=== PATIENT | male | born 1950 | race African-American/Black ===

== ENCOUNTER 2023-04-27 23:00 | Inpatient (IN) | payer MEDICARE, MEDICAID, SELFPAY ==
--- NOTE | ~2023-04-27 | US_ITS ---
EXAMINATION: US renal BI DATE: 04/29/2023 15:36 INDICATION: Acute kidney injury, acute renal failure TECHNIQUE: Limited grayscale and Doppler ultrasound images are obtained. Patient declined continuing the examination. COMPARISON: None. FINDINGS: The right kidney measures 9.9 x 5.1 x 4.9 cm. The left kidney measures 10.0 x 4.3 cm. The k idneys demonstrate increased parenchymal echogenicity. There is no hydronephrosis. The bladder is not imaged. IMPRESSION: 1. Medical renal disease. No hydronephrosis. Limited examination. Reviewed, dictated and finalized at location A.
--- NOTE | ~2023-04-27 | CT_ITS ---
EXAMINATION: CT brain wo con DATE: 04/28/2023 01:08 INDICATION: Altered mental status. TECHNIQUE: Computed tomography (CT) of the head was performed without intravenous contrast. The mA wa s adjusted according to patient size. Iterative reconstruction technique was employed. The dose-lengt h product was 681.00 mGy-cm. COMPARISON: None FINDINGS: There are old infarcts in the cerebellum bilaterally. There is an old infarct involving lef t frontotemporal parietal region, left insula, left basal ganglia, and left thalamus. There is an old infarct in the right basal ganglia. There are scattered areas of low attenuation in the cerebral whi te matter, likely chronic small vessel ischemic disease. There is near complete opacification of left maxillary sinus. There is mild mucosal thickening in the ethmoid sinuses. The mastoid air cells are normal. The orbits are normal. IMPRESSION: 1. Multiple old infarcts in the brain. Reviewed, dictated and finalized at location A.
--- NOTE | ~2023-04-27 | CT_ITS ---
EXAMINATION: CT chest abdomen pelvis wo con DATE: 04/28/2023 01:09 INDICATION: Altered mental status. TECHNIQUE: Computed tomography (CT) of the chest, abdomen, and pelvis was performed without intraveno us contrast. Automated exposure control and iterative reconstruction technique were employed. The dos e-length product was 1424.66 mGy-cm. COMPARISON: None FINDINGS: CHEST CT: There is mild emphysema. There is mild atelectasis bilaterally. No pleural effusion. Cardiomegaly is noted. There are coronary artery calcifications. There is a trace pericardial effusion. There is a le ft chest wall pacer with leads in the right atrium and right ventricle. There is a multinodular goite r with nodules measuring up to at least 2.1 cm. There is bilateral gynecomastia. There is mild thorac ic spondylosis. ABDOMEN/PELVIS CT: Calcifications in the liver consistent with old granulomatous disease. The gallbladder, spleen, pancr eas, adrenal glands, and right kidney are normal. There is a 2.2 cm cyst in left kidney. There is faina cified atherosclerosis of the aorta and many of the other arteries. There is diffuse bladder wall thi ckening, likely secondary to chronic outlet obstruction from the mildly enlarged prostate. Stool dist ends the rectum. There is a moderate volume of stool in the colon. The appendix is normal. There are no pathologically enlarged lymph nodes. There is no free intraperitoneal fluid. There is moderate lum bar spondylosis. IMPRESSION: 1. Mild emphysema. 2. Multinodular goiter. Consider thyroid ultrasound for risk stratification. 3. Stool distends the rectum. Reviewed, dictated and finalized at location A.
--- NOTE | ~2023-04-27 | XR_ITS ---
EXAMINATION: XR chest 1V portable DATE: 04/28/2023 23:38 INDICATION: Crackles on auscultation of the lungs. Aspiration. TECHNIQUE: A single frontal view of the chest was obtained. COMPARISON: CT 04/28/2023 FINDINGS: There is no pneumonia, pleural effusion, or pneumothorax. Cardiomegaly is noted. There is a left chest wall pacer with leads in the right atrium and right ventricle. IMPRESSION: 1. Cardiomegaly. Reviewed, dictated and finalized at location A. IMPRESSION: 1. Cardiomegaly.
[2023-04-27 23:01] VITALS: BP 159/89; PULSE 58; RESP 16; TEMP 36.5; O2SAT 100
--- NOTE | 2023-04-27 23:08 | ECG_ITS ---
Measurements Intervals [place] Rate: 64 P: [place]: 0 QRS: 243 QRSD: 137 T: 62 QT: 446 QTc: 462 Interpretive Statements ATRIAL FIBRILLATION RIGHT AXIS DEVIATION [QRS AXIS > 100] RIGHT BUNDLE BRANCH BLOCK [120+ ms QRS DURATION, UPRIGHT V1, 40+ ms S IN I/aVL/V4/V5/V6] NO PREVIOUS ECG AVAILABLE FOR COMPARISON Electronically Signed On 04-28-2023 11:48:16 CDT by Faye Wei M.D.
--- NOTE | 2023-04-27 23:16 | PC.NURSE ---
gave report and care to ROSARIO Mensah. all questions answered.
[2023-04-28] VITALS (10 sets, daily range): BP systolic 148–189; BP diastolic 69–84; PULSE 43–82; RESP 15–22; TEMP 36.3–37.7; O2SAT 97–100; BMI 24.7
--- NOTE | 2023-04-28 00:13 | ED.AMS ---
HPI - Altered Mental Status General Chief Complaint: Altered Mental Status Stated Complaint: decreased loc Time Seen by Provider: 04/27/23 23:33 History of Present Illness HPI narrative: HPI limited due to patient's altered mental status. This is a 72-year-old male, with past history of diabetes, A-fib on Xarelto, brought in by EMS from his [place] [facility] for altered mental status. EMS reports, they were called for patient's altered mental status and fall from bed with a reported blood pressure of 74/50 and a fingerstick glucose of 270. On arrival, they noted the patient was responsive to loud voice and sternal rub. Blood pressure however was in the 150s systolic. On my evaluation, the patient does not answer questions. I discussed the patient with ROSARIO Gonzalez at his [place] [facility], who notes the patient normally participates in his care with assistance. He follows commands and typically mumbles. At approximately 915 this evening, he received his medications and appeared to his normal self. At 1014 he had a witnessed fall from bed without obvious head injury and was minimally responsive at the time. Review of Systems Review of Systems: Unable to obtain review of systems due to altered mental status PMFSH Past Medical History Medical History (Updated 04/28/23 @ 03:46 by Juan Manuel Crane MD) A-fib Dementia Hypertension Insulin dependent diabetes mellitus Social History Social History Smoking status: Unknown if ever smoked Alcohol intake: unknown Substance use: unknown Exam Narrative: GENERAL: Well-developed, well-nourished, and in no acute distress. HEAD: Normocephalic, atraumatic. EYES: PERRLA and EOMI. ENT: Nares clear, no rhinorrhea or epistaxis. Mucous membranes dry. Oropharynx without tonsillar hypertrophy exudate or other lesions. CHEST: Clear to auscultation. No respiratory distress. No wheezes rales or rhonchi HEART: Regular rate and rhythm. No murmur heard. Normal peripheral pulses. ABDOMEN: Soft, nontender, nondistended, normal active bowel sounds. EXTREMITIES: Normal range of motion. No edema. SKIN: Warm, dry, no rash. NEURO: Follows commands unable to obtain orientation. Moving all 4 limbs purposefully. Course Course Emergency Course: 00:33 -creatinine elevated to 4.4. I discussed this with the [place] [facility] RN Lisa who notes his baseline creatine is 3 as of March 2022 and February 2022. 03:44 - UA appears consistent with UTI. Will treat with cefepime. CBC demonstrates mild anemia with hemoglobin of 9.6 (unknown baseline). STAT rad interpretation of CT chest abdomen pelvis demonstrates changes consistent with proctitis versus cystitis, but is not concerning for trauma or other obvious infectious process. CT head is limited by motion artifact but is not concerning for intracranial hemorrhage or mass. The patient with hospitalist, Dr. Jesus who accepts admission. Vital Signs Vital signs: Vital Signs Temperature 97.7 F 04/27/23 23:01 Pulse Rate 58 L 04/27/23 23:01 Respiratory Rate 16 04/27/23 23:01 Blood Pressure 159/89 H 04/27/23 23:01 Pulse Oximetry 100 04/27/23 23:01 Oxygen Delivery Room Air 04/27/23 23:01 Temperature 99.8 F H 04/28/23 02:24 Pulse Rate 82 04/28/23 02:22 Respiratory Rate 22 H 04/28/23 02:23 Blood Pressure 166/71 H 04/28/23 02:22 Pulse Oximetry 99 04/28/23 02:22 Oxygen Delivery Room Air 04/27/23 23:01 MDM - Altered Mental Status MDM Narrative Medical decision making narrative: Plan: Labs, imaging, EKG, reassess Differential Diagnosis Differential diagnosis: Likely alcoholic intoxication, altered mental status, delirium, hypoglycemia, hyponatremia and other (Intracranial hemorrhage, skull fracture, pneumonia, UTI, metabolic abnormality, other) Lab Data 04/28/23 00:09 04/28/23 00:09 Labs: Lab Results 04/28/23 04/28/23 Range/Units 00:0
[2023-04-28 00:20] LABS: Basophils Percent Auto 0.1 % (0.2-1.2); Eosinophils Percent Auto 0.4 % (0-4.4); Hematocrit 31.2 % (42.0-52.0); Hemoglobin 9.6 g/dL (14.0-18.0); Immature Granulocyte Absolute 0.02 K/mm3 (0.00-0.031); Immature Granulocyte Percent A 0.2 % (0-0.5); Lymphocytes Absolute Auto 1.04 K/mm3 (0.9-3.2); Lymphocytes Percent Auto 12.8 % (18.3-44.2); Mean Corpuscular HGB Conc 30.8 g/dl (32-36); Mean Corpuscular Hemoglobin 28.6 pg (26-34); Mean Corpuscular Volume 92.9 fl (80-100); Mean Platelet Volume 12.2 fl (7.4-10.4); Monocytes Absolute Auto 0.7 K/mm3 (0.1-0.6); Monocytes Percent Auto 8.2 % (2.6-8.5); Neutrophils Absolute Auto 6.4 K/mm3 (1.3-6.7); Neutrophils Percent Auto 78.3 % (45.5-73.1); Platelet Count Result 175 k/mm3 (150-375); Red Blood Count 3.36 M/mm3 (4.6-6.20); Red Cell Distribution Width 14.2 % (11.5-14.5); White Blood Count 8.1 K/mm3 (4.5-10.0)
[2023-04-28 00:24] LABS: Alanine Aminotransferase 21 U/L (6-50); Albumin Level 3.8 g/dL (3.5-5.1); Alkaline Phosphatase 63 U/L (38-126); Anion Gap 7 mmol/L (8-16); Aspartate Amino Transferase 22 U/L (17-59); Bilirubin,Total 0.4 mg/dL (0.2-1.3); Blood Urea Nitrogen 88 mg/dL (9-20); Calcium 8.9 mg/dL (8.4-10.2); Carbon Dioxide 24 mmol/L (22-30); Chloride 116 mmol/L (98-107); Estimated CRCL calculation 15 ml/min; Estimated Glomerular Filt Rate 16; Glucose 178 mg/dL (65-110); INR 1.2; Prothrombin Time 15.9 Seconds (11.1-14.7); Sodium 147 mmol/L (137-145)
[2023-04-28 00:25] LABS: Partial Thromboplastin Time 33.8 SECONDS (22.3-36.8)
[2023-04-28 00:53] LABS: Acetaminophen < 10 ug/mL (10-30); Ethanol < 10 mg/dL (<10); Salicylate < 1.0 mg/dL (2-20)
[2023-04-28 02:47] LABS: Appearance Urine Cloudy (Clear); Bacteria Urine 4+ /hpf; Bilirubin Urine Negative (Negative); Blood Urine Negative (Negative); Color Urine Yellow (Yellow); Glucose Urine UA Negative (Negative); Ketones Urine Negative (Negative); Leukocyte Esterase Ur 2+ LEU/UL (Negative); Nitrate Urine Negative (Negative); Non Pathogenic Casts 0-2; Protein Urine 3+ mg/dL (Negative); RBC Urine 0-2 /hpf (0-2); Specific Grav Ur 1.012 (1.001-1.035); Squamous Epithelial Cell Urine Occasional /hpf (Few); Urobilinogen Urine 0.2 mg/dL (<2.0); WBC Clumps Urine Present /HPF; WBC Urine 51-100 /hpf; pH Urine 5.5 (5.0-9.0)
[2023-04-28 02:49] LABS: Add Urine Microscopic? YES
[2023-04-28] MEDS: SODIUM CHLORIDE 0.9% IV 1,000 ML 999 ML IV CONT (03:18)
[2023-04-28] MEDS: CEFEPIME 1 GM/NS 50 ML 1 GM/50 ML BAG IVPB ×2 (03:18→17:33)
--- NOTE | 2023-04-28 04:30 | PC.NURSE ---
detention made aware of pt condition and plan of care at this time. This RN spoke with raymon PONCE
--- NOTE | 2023-04-28 04:59 | PC.NURSE ---
Normal saline still infusing at this time due to pt positioning. New IV placed in right hand and fluids now infusing through this IV due to 18G in L AC being positional.
--- NOTE | 2023-04-28 05:47 | ADMGEN ---
This patient, Cristofer Bryant, was admitted to [facility] Surg Room 331-01. Patient/family oriented to hospital policies and general routines including ID bracelet, bed and alarms, visiting hours, pain management, procedures, bathroom and other care routines, personal items, smoking policy, room service/diet, and visiting hours. Information on how to activate the Rapid Response Team has been discussed. Patient/Family are encouraged to report perceived risks to care and to ask questions if they do not understand what they are told or what they should do.
[2023-04-28 07:49] LABS: Glucose Point of Care 127 mg/dl (65-105)
[2023-04-28 11:23] LABS: Glucose Point of Care 95 mg/dl (65-105)
[2023-04-28 16:25] LABS: Glucose Point of Care 75 mg/dl (65-105)
[2023-04-28] MEDS: DEXTROSE 5%/0.45% SOD CHL 1,000 ML 75 ML IV CONT (16:47)
--- NOTE | 2023-04-28 16:57 | PM.IMHP ---
H&P: HPI History of Present Illness Date/Time: 04/28/23 16:57 Chief Complaint: AMS Narrative: Pt admitted with AMS, AF and DM and dementia poor historian possible stroke in the past difficulty swallowing looks cachexia and weak NH reported fall and unresponsiveness CT shows old infarcts in brain CT abdo pelvis shows full rectal with stools labs shows 147 sodium, creat is 4.4 possible uti Review of Systems Review of Systems: poor historian [facility] Past Medical History Medical History (Updated 04/28/23 @ 17:04 by Cinthya Mullins MD) A-fib Dementia Hypertension Insulin dependent diabetes mellitus Social History Social History Smoking status: Never smoker Second hand tobacco smoke exposure: No Alcohol intake: unknown Substance use: unknown Spiritual care concerns: No Meds Home Medications and Allergies Home Medications Medication Instructions Recorded Confirmed Type amlodipine 10 mg tablet 10 mg PO DAILY 04/28/23 04/28/23 History atorvastatin 20 mg tablet 20 mg PO DAILY 04/28/23 04/28/23 History clonidine 0.3 mg/24 hr weekly 0.3 mg transdermal DAILY 04/28/23 04/28/23 History transdermal patch glucagon 1 mg solution for 1 mg IM PRN PRN Hypoglycemia 04/28/23 04/28/23 History injection (Glucagon Emergency Kit) glucagon 1 mg/0.2 mL subcutaneous 1 mg subcut PRN PRN Hypoglycemia 04/28/23 04/28/23 History auto-injector (Gvoke HypoPen 1-Pack) hydralazine 25 mg tablet 25 mg PO TID 04/28/23 04/28/23 History hydralazine 50 mg tablet 50 mg PO TID 04/28/23 04/28/23 History hydrochlorothiazide 25 mg tablet 25 mg PO TID 04/28/23 04/28/23 History insulin detemir U-100 100 unit/mL 10 unit subcut HS 04/28/23 04/28/23 History subcutaneous solution (Levemir U-100 Insulin) insulin regular human 100 unit/mL 3 - 9 sliding scale dose subcut 04/28/23 04/28/23 History injection solution (Novolin R PRN PRN Hyperglycemia Regular U-100 Insulin) rivaroxaban 15 mg tablet (Xarelto) 15 mg PO DAILY 04/28/23 04/28/23 History Allergies Allergy/AdvReac Type Severity Reaction Status Date / Time No Known Allergies Allergy Verified 04/28/23 03:57 Vital Signs Vital Signs - 24 hr 04/27/23 23:01 04/28/23 02:22 04/28/23 02:23 Temperature 36.5 C Pulse Rate 58 L 82 Respiratory Rate 16 22 H 22 H Blood Pressure 159/89 H 166/71 H Pulse Oximetry 100 99 Oxygen Delivery Room Air 04/28/23 02:24 04/28/23 04:09 04/28/23 04:35 Temperature 37.7 C H Pulse Rate 66 75 Respiratory Rate 15 20 Blood Pressure 162/82 H 154/84 H Pulse Oximetry 97 100 Oxygen Delivery 04/28/23 05:30 04/28/23 09:42 04/28/23 14:00 Temperature 36.4 C 36.3 C L Pulse Rate 72 53 L Respiratory Rate 20 21 H Blood Pressure 173/69 H 189/70 H Pulse Oximetry 100 98 100 Oxygen Delivery Room Air Exam Const: General: thin and underweight (tired chronically ill dysphasic dysphagic ); No in distress Nutritional Appearance: overweight Orientation/consciousness: oriented to person HENMT: Head: normal to inspection Resp: Effort & Inspection: no respiratory distress Auscultation: no rhonchi and no wheezes Cardio: Rate: regular rate Rhythm: regular rhythm GI: Inspection: normal to inspection GI Palp: No abdominal tenderness, No Guarding due to palpation present (GI) and No Hepatomegaly present Auscultation: normal bowel sounds Neuro: General: oriented to person H&P: Results Labs Labs: Short CBC 04/28/23 Range/Units 00:09 WBC 8.1 (4.5-10.0) K/mm3 Hgb 9.6 L (14.0-18.0) g/dL Hct 31.2 L (42.0-52.0) % Plt Count 175 (150-375) k/mm3 BMP 04/28/23 00:09 Sodium 147 H Potassium 4.0 Chloride 116 H Carbon Dioxide 24 BUN 88 H Creatinine 4.40 H Glucose 178 H Calcium 8.9 Liver Function 04/28/23 Range/Units 00:09 Total Bilirubin 0.4 (0.2-1.3) mg/dL AST 22 (17-59) U/L
[2023-04-28] MEDS: DEXTROSE 5%/0.45% SOD CHL 1,000 ML 100 ML IV CONT (17:33)
[2023-04-28 17:38] LABS: Hemoglobin A1C 5.6 % (<5.7)
--- NOTE | 2023-04-28 20:24 | PC.NURSE ---
Spoke with Minnie Roy at this time r/t reports of patient choking on food at supper. New order received for NPO and speech eval. Elevated BPs noted since admission. New orders received for hydralazine 10mg IVP Q4H PRN for systolic >160 and diastolic >90.
[2023-04-28 22:55] LABS: Glucose Point of Care 104 mg/dl (65-105)
--- NOTE | 2023-04-28 23:16 | PC.NURSE ---
Spoke with Minnie Roy r/t patient having coarse and crackle lung sounds throughout and being lethargic with low grade temp of 99.3. New orders received for a chest x-ray, ABG's, and Flagyl 500 mg IVPB Q8HR.
[2023-04-28] MEDS: metroNIDAZOLE 500 MG/ISO 100ML 500 MG/100 ML BAG 100 MG IVPB (23:27)
[2023-04-28 23:42] LABS: Alveolar/Arterial O2 Gradient 23.7 mmHg; Base Excess ABG -1.5 mEq/l (+/-2.0); Fractional Inspired Oxygen 21 %; HCO3 ABG 22.3 mEq/l (22.0-26.0); Oxygen Content ABG 13.5 %vol (16.0-22.0); Oxygen Saturation ABG 96.9 % (95.0-100.0); PCO2 ABG 33.7 mmHg (35.0-45.0); PO2 ABG 85.7 mmHg (80.0-100.0); PO2 FiO2 Ratio Arterial Blood 4.08 %; Site Drawn RIGHT BRACHIAL; pH ABG 7.438 (7.350-7.450)
[2023-04-28 23:43] LABS: Device ROOM AIR
[2023-04-29] MEDS: DEXTROSE 5%/0.45% SOD CHL 1,000 ML 100 ML IV CONT ×2 (04:11→15:40)
[2023-04-29] MEDS: CEFEPIME 1 GM/NS 50 ML 1 GM/50 ML BAG IVPB (05:20)
[2023-04-29] MEDS: metroNIDAZOLE 500 MG/ISO 100ML 500 MG/100 ML BAG 100 MG IVPB (05:24)
[2023-04-29 06:00] VITALS: BP 139/75; PULSE 43; RESP 20; TEMP 37.2; O2SAT 100
[2023-04-29 06:08] LABS: Basophils Percent Auto 0.1 % (0.2-1.2); Eosinophils Absolute Auto 0.2 K/mm3 (0-0.3); Hemoglobin 9.5 g/dL (14.0-18.0); Immature Granulocyte Absolute 0.02 K/mm3 (0.00-0.031); Immature Granulocyte Percent A 0.3 % (0-0.5); Lymphocytes Absolute Auto 1.52 K/mm3 (0.9-3.2); Lymphocytes Percent Auto 22.6 % (18.3-44.2); Mean Corpuscular HGB Conc 28.8 g/dl (32-36); Mean Corpuscular Hemoglobin 28.6 pg (26-34); Mean Corpuscular Volume 99.4 fl (80-100); Mean Platelet Volume 12.3 fl (7.4-10.4); Monocytes Absolute Auto 0.8 K/mm3 (0.1-0.6); Monocytes Percent Auto 12.5 % (2.6-8.5); Neutrophils Absolute Auto 4.2 K/mm3 (1.3-6.7); Neutrophils Percent Auto 61.5 % (45.5-73.1); Platelet Count Result 160 k/mm3 (150-375); Red Blood Count 3.32 M/mm3 (4.6-6.20); Red Cell Distribution Width 13.7 % (11.5-14.5); White Blood Count 6.7 K/mm3 (4.5-10.0)
[2023-04-29 06:17] LABS: Anion Gap 9 mmol/L (8-16); Blood Urea Nitrogen 81 mg/dL (9-20); Calcium 8.8 mg/dL (8.4-10.2); Carbon Dioxide 21 mmol/L (22-30); Chloride 120 mmol/L (98-107); Estimated CRCL calculation 16 ml/min; Estimated Glomerular Filt Rate 18; Glucose 133 mg/dL (65-110); Potassium 4.2 mmol/L (3.4-5.0); Sodium 150 mmol/L (137-145)
[2023-04-29 06:40] LABS: Anisocytosis 2+ (NORMAL); Crenated RBC 1+ (NORMAL); Hypochromasia 2+ (NORMAL); Platelet Estimate Adequate (Adequate); Schistocytes Rare (NORMAL)
[2023-04-29 06:41] LABS: Poikilocytosis 1+ (NORMAL)
[2023-04-29 07:41] LABS: Glucose Point of Care 131 mg/dl (65-105)
[2023-04-29] MEDS: ATORVASTATIN 20 MG TABLET PO (09:41)
[2023-04-29] MEDS: RIVAROXABAN 15 MG TABLET PO (09:42)
[2023-04-29] MEDS: amLODIPine BESYLATE 5 MG TABLET 10 MG PO (09:42)
[2023-04-29] MEDS: hydrALAZINE HCL 50 MG TABLET PO ×2 (09:42→12:30)
[2023-04-29] MEDS: hydrALAZINE HCL 25 MG TABLET PO ×2 (09:42→12:30)
[2023-04-29] MEDS: hydroCHLOROthiazide 25 MG TABLET PO ×2 (09:46→12:30)
[2023-04-29 11:28] LABS: Glucose Point of Care 185 mg/dl (65-105)
[2023-04-29 13:44] VITALS: BMI 24.7
[2023-04-29 13:48] VITALS: BP 162/100; PULSE 47; RESP 20; TEMP 36.1; O2SAT 100
--- NOTE | 2023-04-29 14:32 | PM.IMPN ---
Progress Note: A&P Assessment and Plan (1) Acute UTI: Code(s): N39.0 - Urinary tract infection, site not specified Status: Acute Assessment and Plan: continue iv fluids and iv rocephin (2) Acute kidney injury superimposed on CKD: Code(s): N17.9 - Acute kidney failure, unspecified; N18.9 - Chronic kidney disease, unspecified Status: Acute Assessment and Plan: watch BMP watch UO consult nephrology (3) Altered mental status: Qualifiers: Altered mental status type: unspecified Qualified Code(s): R41.82 - Altered mental status, unspecified Code(s): R41.82 - Altered mental status, unspecified Status: Acute Assessment and Plan: likely secondary to UTI pt has history of dementia and stroke (4) Insulin dependent diabetes mellitus: Status: Acute Assessment and Plan: accuchecks, SSI (5) Hypertension: Code(s): I10 - Essential (primary) hypertension Status: Acute Assessment and Plan: watch bp in hospital reduce fluids watch blood pressure remain high in hospital (6) Dementia: Code(s): F03.90 - Unspecified dementia, unspecified severity, without behavioral disturbance, psychotic disturbance, mood disturbance, and anxiety Status: Acute Assessment and Plan: baseline dementia (7) A-fib: Code(s): I48.91 - Unspecified atrial fibrillation Status: Acute Assessment and Plan: chronic and stable watch on telemetry Plan xarelto for DVT prop Dc once pt back to his baseline Subjective Date/time seen: 04/29/23 14:32 Interval history: Pt admitted with AMS, AF and DM and dementia poor historian possible stroke in the past difficulty swallowing looks cachexia and weak NH reported fall and unresponsiveness Pt seen by speech and swallow see recommendation Pt seen by nephrology see recommendations continue iv fluids and iv ABX change to IV rocephin Review of Systems Review of Systems: poor historian Exam Const: General: overweight, thin and underweight (tired chronically ill dysphasic dysphagic ); No in distress Nutritional Appearance: overweight, thin and underweight (tired chronically ill dysphasic dysphagic ) Orientation/consciousness: oriented to person HENMT: Head: normal to inspection Resp: Effort & Inspection: no respiratory distress Auscultation: no rhonchi and no wheezes Cardio: Rate: regular rate Rhythm: regular rhythm GI: Inspection: normal to inspection Auscultation: normal bowel sounds Neuro: General: oriented to person Objective Data Vital Signs Vital Signs: Vital Signs - 24 hr 04/28/23 20:00 04/28/23 22:00 04/29/23 06:00 Temperature 37.4 C 37.2 C Pulse Rate 53 L 43 L 43 L Respiratory Rate 21 H 20 20 Blood Pressure 148/70 H 139/75 Pulse Oximetry 100 100 100 Oxygen Delivery Room Air 04/29/23 13:48 Temperature 36.1 C L Pulse Rate 47 L Respiratory Rate 20 Blood Pressure 162/100 H Pulse Oximetry 100 Oxygen Delivery Intake/Output Intake/Output: Intake & Output 04/26/23 04/27/23 04/28/23 04/29/23 23:59 23:59 23:59 23:59 Intake Total 220 1150 Output Total 300 Balance -80 1150 Meds/Results Medications: Active Medications Generic Name Dose Route Start Last Admin Trade Name Freq PRN Reason Stop Dose Admin Acetaminophen 650 mg 04/28/23 03:41 Acetaminophen 325 Mg Tablet PO Q4H PRN Mild Pain (1-3) or Fever Amlodipine Besylate 10 mg 04/29/23 09:00 04/29/23 09:42 Amlodipine Besylate 5 Mg Tablet PO 10 mg DAILY URIAH Administration Atorvastatin Calcium 20 mg 04/29/23 09:00 04/29/23 09:41 Atorvastatin 20 Mg Tablet PO 20 mg DAILY URIAH Administration Clonidine HCl 1 patch 05/01/23 09:00 Clonidine 0.3 Mg/24 Hr Patch TRANSDERM Sa@0900 URIAH Dextrose 12.5 gm 04/28/23 17:08 Dextrose 50% 25 Gm/50 Ml Syringe IV PUSH PRN PRN Hypoglycemia Pro
--- NOTE | 2023-04-29 14:45 | PM.CNNEP ---
Assessment and Plan Assessment and plan (1) LINDSEY (acute kidney injury): Code(s): N17.9 - Acute kidney failure, unspecified Status: Acute Assessment and Plan: unclear what baseline creatinine normally runs attempting to get records from nursing faciltity suspect has an element of CKD given risk factors check urine studies and renal ultrasound follow trend of labs with and UOP (2) Acute UTI: Code(s): N39.0 - Urinary tract infection, site not specified Status: Acute Assessment and Plan: as noted by admission UA follow-up on culture results continue antibiotic therapy (3) Altered mental status: Qualifiers: Altered mental status type: unspecified Qualified Code(s): R41.82 - Altered mental status, unspecified Code(s): R41.82 - Altered mental status, unspecified Status: Acute Assessment and Plan: presumably secondary to UTI complicated by history of dementia and CVAs follow mentation (4) Hypertension: Code(s): I10 - Essential (primary) hypertension Status: Chronic Assessment and Plan: resume home medications follow trend of hemodynamics (5) A-fib: Code(s): I48.91 - Unspecified atrial fibrillation Status: Acute Assessment and Plan: chronic and stable watch on tele metry (6) Insulin dependent diabetes mellitus: Status: Chronic Assessment and Plan: follow accu-checks glycemic control per hospitalists I will continue follow the patient with you while he remains hospitalized and make further recommendations as deemed necessary. Thank you for allowing me to participate in care of this patient. History of Present Illness Reason for Consult Consult date: 04/29/23 Reason for consult: acute renal failure (on chronic kidney disease[?]) Chief Complaint Chief complaint: UTI,LINDSEY on CKD History of Present Illness Narrative: Almost all the information I have obtained is from review of the electronic medical records and discussion with the physician/nurses involved in the patient's care as the patient is a poor historian due to his underlying dementia and cannot provide any meaningful history as to the events that led to his presentation and subsequent admission to the hospital. The patient is a 72-year-old male with a past medical history as outlined below who was transferred to [facility] Emergency room via EMS from his nursing facility for apparent altered mental status. By EMS report, the patient apparently fell out of bed earlier today with a reported systolic blood pressure in the 70s. His nursing facility reports that early on the morning of admission when he received his medications, his mentation was at baseline but then following the witnessed fall from bed, he was not as responsive afterwards. There was no reported head injury following the fall. In any case, by EMS arrival, the patient was responsive to loud voice and a sternal rub and repeat blood pressure check was reportedly in the 150 systolic. He was subsequently transferred to [facility] Emergency room for further assessment. Workup and evaluation emergency room demonstrated the patient to be hemodynamically stable and in no apparent distress. By assisted report, the patient apparently normally is able to participate in his care with assistance not a tot he normally follows commands and typically mumbles his answers when questions are asked. By assessment in the ER, the patient was not able to answer any questions with any type of verbal response. Routine blood tests were significant for an elevated BUN and creatinine with no critical electrolyte abnormalities and a CBC that was unremarkable aside from mild anemia. Unfortunately, it is unclear what his baseline renal function is at this time his urinalysis was highly suggestive of a urinary tract infection as well. CT scan of the head chest abdome
[2023-04-29] MEDS: hydrALAZINE HCL 20 MG/ML VIAL 10 MG IV PUSH (15:40)
[2023-04-29 16:06] LABS: Creatinine Urine 38.7 mg/dL; Urea Random Urine 381 MG/DL
[2023-04-29 16:09] LABS: Sodium Urine Random 115 meq/L
[2023-04-29 16:12] LABS: Glucose Point of Care 195 mg/dl (65-105)
[2023-04-29 16:24] LABS: Eosinophil Urine None Seen % (None Seen); Urine Eos QC 2nd Tech Confirmed
[2023-04-29 16:53] LABS: Total Protein Urine Random 337 mg/dL; Ur Ttl Prot Creatinine Ratio 8.71 mg/mg (0-0.20)
[2023-04-29] MEDS: cefTRIAXone 2 GM/NS 100 ML 2 GM/100 ML BAG IVPB (19:02)
[2023-04-29 22:00] VITALS: BP 159/96; PULSE 43; RESP 20; TEMP 36.3; O2SAT 98
[2023-04-29 22:09] LABS: Glucose Point of Care 246 mg/dl (65-105)
[2023-04-29] MEDS: INSULIN GLARGINE (*BKC) 100 UNITS/ML 12 UNITS SUB-Q (22:09)
[2023-04-30 06:00] VITALS: BP 155/86; PULSE 45; RESP 20; TEMP 36.8; O2SAT 97
[2023-04-30 06:25] LABS: Alanine Aminotransferase 16 U/L (6-50); Albumin Level 3.2 g/dL (3.5-5.1); Alkaline Phosphatase 50 U/L (38-126); Anion Gap 5 mmol/L (8-16); Aspartate Amino Transferase 24 U/L (17-59); Bilirubin,Total 0.3 mg/dL (0.2-1.3); Blood Urea Nitrogen 71 mg/dL (9-20); Calcium 8.5 mg/dL (8.4-10.2); Carbon Dioxide 25 mmol/L (22-30); Chloride 117 mmol/L (98-107); Creatine Kinase 142 U/L (55-170); Estimated CRCL calculation 16 ml/min; Estimated Glomerular Filt Rate 18; Glucose 113 mg/dL (65-110); Potassium 3.9 mmol/L (3.4-5.0); Sodium 147 mmol/L (137-145)
[2023-04-30 08:27] LABS: Glucose Point of Care 103 mg/dl (65-105)
[2023-04-30] MEDS: ATORVASTATIN 20 MG TABLET PO (10:01)
[2023-04-30] MEDS: hydroCHLOROthiazide 25 MG TABLET PO ×3 (10:01→17:04)
[2023-04-30] MEDS: hydrALAZINE HCL 50 MG TABLET PO ×3 (10:01→17:03)
[2023-04-30] MEDS: amLODIPine BESYLATE 5 MG TABLET 10 MG PO (10:02)
[2023-04-30] MEDS: hydrALAZINE HCL 25 MG TABLET PO ×3 (10:02→17:04)
--- NOTE | 2023-04-30 10:04 | PM.IMPN ---
Progress Note: A&P Assessment and Plan (1) Acute UTI: Code(s): N39.0 - Urinary tract infection, site not specified Status: Acute Assessment and Plan: continue iv fluids changed IV antibiotics to Ertapenem for a 5 day course (2) Acute kidney injury superimposed on CKD: Code(s): N17.9 - Acute kidney failure, unspecified; N18.9 - Chronic kidney disease, unspecified Status: Acute Assessment and Plan: watch BMP watch UO consult nephrology (3) Altered mental status: Qualifiers: Altered mental status type: unspecified Qualified Code(s): R41.82 - Altered mental status, unspecified Code(s): R41.82 - Altered mental status, unspecified Status: Acute Assessment and Plan: likely secondary to UTI pt has history of dementia and stroke (4) Insulin dependent diabetes mellitus: Status: Acute Assessment and Plan: accuchecks, SSI (5) Hypertension: Code(s): I10 - Essential (primary) hypertension Status: Acute Assessment and Plan: watch bp in hospital reduce fluids watch blood pressure remain high in hospital (6) Dementia: Code(s): F03.90 - Unspecified dementia, unspecified severity, without behavioral disturbance, psychotic disturbance, mood disturbance, and anxiety Status: Acute Assessment and Plan: baseline dementia (7) A-fib: Code(s): I48.91 - Unspecified atrial fibrillation Status: Acute Assessment and Plan: chronic and stable watch on telemetry Plan xarelto for DVT prop Dc once pt back to his baseline Subjective Date/time seen: 04/30/23 10:04 Interval history: This is a 72-year-old gentleman with a past medical history of AFib, dementia, diabetes, and hypertension who presents to the ER after a fall at his assisted. Per the nurse at his assisted he normally participate in his care and is able to follow commands but mumbles. On exam today he is lying in bed with a blanket over his head. He is alert and oriented to person and he knows he is in the hospital. He is unable to carry on a conversation, he just keeps nodding his head no when asked if he is in pain. Urinalysis is concerning for UTI and urine culture is growing E coli ESBL. He will need 5 days of IV Ertapenem. Review of Systems Review of Systems: ROS unobtainable: Yes unobtainable due to mental status Exam Narrative: General: chronically ill, elderly appear 72-year-old male, laying in bed, comfortable, NARD Neuro: awake, alert and oriented x1-2, speech mumbled, no focal neuro deficits noted HEENMT: normocephalic, atraumatic, EOMI, sclerae anicteric, moist oral mucosa Respiratory: Clear to auscultation bilaterally without crackles, rhonchi or wheezes, nonlabored breathing Cardio: regular rate, regular rhythm with S1-S2 Abdomen: nondistended, normoactive bowel sounds, soft, nontender to palpation Extremities: no edema, erythema, or tenderness to palpation, DP pulses 2+ bilaterally Skin: no rashes or lesions, warm and dry Psych: appropriate mood, judgment and insight poor Objective Data Vital Signs Vital Signs: Vital Signs - 24 hr 04/29/23 13:48 04/29/23 20:00 04/29/23 22:00 Temperature 97.0 F L 97.4 F L Pulse Rate 47 L 43 L Respiratory Rate 20 20 Blood Pressure 162/100 H 159/96 H Pulse Oximetry 100 98 Oxygen Delivery Room Air 04/30/23 06:00 Temperature 98.2 F Pulse Rate 45 L Respiratory Rate 20 Blood Pressure 155/86 H Pulse Oximetry 97 Oxygen Delivery Intake/Output Intake/Output: Intake & Output 04/27/23 04/28/23 04/29/23 04/30/23 23:59 23:59 23:59 23:59 Intake Total 220 2610 Output Total 300 1000 Balance -80 2610 -1000 Meds/Results Medications: Active Medications Generic Name Dose Route Start Last Admin Trade Name Yonisq PRN Reason Stop Dose Admin Acetaminophen 650 mg 04/28/23 03:41 Acetaminophen 325 Mg Tablet PO Q4H PRN
[2023-04-30 10:12] LABS: Basophils Percent Auto 0.3 % (0.2-1.2); Eosinophils Absolute Auto 0.4 K/mm3 (0-0.3); Eosinophils Percent Auto 5.5 % (0-4.4); Hematocrit 31.8 % (42.0-52.0); Hemoglobin 9.7 g/dL (14.0-18.0); Immature Granulocyte Absolute 0.01 K/mm3 (0.00-0.031); Immature Granulocyte Percent A 0.2 % (0-0.5); Lymphocytes Absolute Auto 1.44 K/mm3 (0.9-3.2); Lymphocytes Percent Auto 22.4 % (18.3-44.2); Mean Corpuscular HGB Conc 30.5 g/dl (32-36); Mean Corpuscular Hemoglobin 28.7 pg (26-34); Mean Corpuscular Volume 94.1 fl (80-100); Mean Platelet Volume 12.7 fl (7.4-10.4); Monocytes Absolute Auto 0.8 K/mm3 (0.1-0.6); Monocytes Percent Auto 11.7 % (2.6-8.5); Neutrophils Absolute Auto 3.9 K/mm3 (1.3-6.7); Neutrophils Percent Auto 59.9 % (45.5-73.1); Platelet Count Result 163 k/mm3 (150-375); Red Blood Count 3.38 M/mm3 (4.6-6.20); Red Cell Distribution Width 13.5 % (11.5-14.5); White Blood Count 6.4 K/mm3 (4.5-10.0)
[2023-04-30] MEDS: INSULIN ASPART (*BKC) 100 UNITS/ML SUB-Q ×3 (10:12→17:05)
[2023-04-30] MEDS: RIVAROXABAN 15 MG TABLET PO (10:12)
[2023-04-30] MEDS: DEXTROSE 5%/0.45% SOD CHL 1,000 ML 100 ML IV CONT (10:20)
[2023-04-30 12:19] LABS: Glucose Point of Care 151 mg/dl (65-105)
[2023-04-30 14:00] VITALS: BP 138/88; PULSE 51; RESP 16; TEMP 36.6; O2SAT 99
--- NOTE | 2023-04-30 14:43 | PM.PNNEP ---
Progress Note: A&P Assessment and Plan (1) LINDSEY (acute kidney injury): Code(s): N17.9 - Acute kidney failure, unspecified Status: Acute Assessment and Plan: unclear what baseline creatinine normally runs attempting to get records from nursing facility or another hospital suspect has an element of CKD given risk factors evaluation to date: renal ultrasound consistent with CKD urine electrolytes non-prerenal urine eosinophils negative CPK normal UA indicative of infection follow trend of labs with and UOP (2) Acute UTI: Code(s): N39.0 - Urinary tract infection, site not specified Status: Acute Assessment and Plan: as noted by admission UA urine culture resuls with ESBL E.coli on adjusted antibiotic therapy (3) Altered mental status: Qualifiers: Altered mental status type: unspecified Qualified Code(s): R41.82 - Altered mental status, unspecified Code(s): R41.82 - Altered mental status, unspecified Status: Acute Assessment and Plan: resolving presumably secondary to UTI complicated by history of dementia and CVAs follow mentation (4) Hypertension: Code(s): I10 - Essential (primary) hypertension Status: Chronic Assessment and Plan: resume home medications follow trend of hemodynamics (5) A-fib: Code(s): I48.91 - Unspecified atrial fibrillation Status: Acute Assessment and Plan: chronic issue rate control on anticoagulation (6) Insulin dependent diabetes mellitus: Status: Chronic Assessment and Plan: follow accu-checks glycemic control per hospitalists Will continue to follow. Subjective Date/time seen: 04/30/23 14:43 Interval history: Follow-up for acute kidney injury/acute renal failure on chronic kidney disease. Mentation seems better and closer to baseline per detention report -- more responsive to questions and mubbles answers although all of his answers to all questions is the same; no issues/events overnight or earlier this morning; renal function about the same (but no worse). Exam Narrative: General: elderly AA male who appears in NAD Heart: normal S1 and S2; no rub Lungs: clear to auscultation Abdomen: soft, nontender, nondistended, positive bowel sounds Extremities: no cyanosis or clubbing; no edema Skin: warm and dry Objective Data Vital Signs Vital Signs: Vital Signs Temp Pulse Resp BP Pulse Ox O2 Del Method 04/30/23 10:00 Room Air 04/30/23 06:00 98.2 F 45 L 20 155/86 H 97 04/29/23 22:00 97.4 F L 43 L 20 159/96 H 98 04/29/23 20:00 Room Air Intake/Output Intake/Output: Intake & Output 04/27/23 04/28/23 04/29/23 04/30/23 23:59 23:59 23:59 23:59 Intake Total 220 2610 1240 Output Total 300 1000 Balance -80 2610 240 Meds/Results Medications: Active Medications Generic Name Dose Route Start Last Admin Trade Name Freq PRN Reason Stop Dose Admin Acetaminophen 650 mg 04/28/23 03:41 Acetaminophen 325 Mg Tablet PO Q4H PRN Mild Pain (1-3) or Fever Amlodipine Besylate 10 mg 04/29/23 09:00 04/30/23 10:02 Amlodipine Besylate 5 Mg Tablet PO 10 mg DAILY URIAH Administration Atorvastatin Calcium 20 mg 04/29/23 09:00 04/30/23 10:01 Atorvastatin 20 Mg Tablet PO 20 mg DAILY URIAH Administration Clonidine HCl 1 patch 05/01/23 09:00 Clonidine 0.3 Mg/24 Hr Patch TRANSDERM Sa@0900 URIAH Dextrose 12.5 gm 04/28/23 17:08 Dextrose 50% 25 Gm/50 Ml Syringe IV PUSH PRN PRN Hypoglycemia Protocol Glucagon 1 mg 04/28/23 17:08 Glucagon For Inj 1 Mg Vial IM PRN PRN Hypoglycemia Protocol Glucose 15 gm 04/28/23 17:08 Glucose Oral Gel 15 Gm Of Glucse In 37.5 Gm Tube PO PRN PRN Hypoglycemia Protocol Hydralazine HCl 50 mg 04/29/23 09:00 04/30/23 17:03 Hydralazine Hcl 50 Mg Tabl
--- NOTE | 2023-04-30 14:43 | P.PNNP_ITS ---
Progress Note: A&P Assessment and Plan (1) LINDSEY (acute kidney injury): Code(s): N17.9 - Acute kidney failure, unspecified Status: Acute Assessment and Plan: * unclear what baseline creatinine normally runs * attempting to get records from nursing facility or another hospital * suspect has an element of CKD given risk factors * evaluation to date: * renal ultrasound consistent with CKD * urine electrolytes non-prerenal * urine eosinophils negative * CPK normal * UA indicative of infection * follow trend of labs with and UOP (2) Acute UTI: Code(s): N39.0 - Urinary tract infection, site not specified Status: Acute Assessment and Plan: * as noted by admission UA * urine culture resuls with ESBL E.coli * on adjusted antibiotic therapy (3) Altered mental status: Qualifiers: Altered mental status type: unspecified Qualified Code(s): R41.82 - Altered mental status, unspecified Code(s): R41.82 - Altered mental status, unspecified Status: Acute Assessment and Plan: * resolving * presumably secondary to UTI * complicated by history of dementia and CVAs * follow mentation (4) Hypertension: Code(s): I10 - Essential (primary) hypertension Status: Chronic Assessment and Plan: * resume home medications * follow trend of hemodynamics (5) A-fib: Code(s): I48.91 - Unspecified atrial fibrillation Status: Acute Assessment and Plan: * chronic issue * rate control * on anticoagulation (6) Insulin dependent diabetes mellitus: Status: Chronic Assessment and Plan: * follow accu-checks * glycemic control per hospitalists Will continue to follow. Subjective Date/time seen: 04/30/23 14:43 Interval history: Follow-up for acute kidney injury/acute renal failure on chronic kidney disease. Mentation seems better and closer to baseline per alf report -- more responsive to questions and mubbles answers although all of his answers to all questions is the same; no issues/events overnight or earlier this morning; renal function about the same (but no worse). Exam Narrative: General: elderly AA male who appears in NAD Heart: normal S1 and S2; no rub Lungs: clear to auscultation Abdomen: soft, nontender, nondistended, positive bowel sounds Extremities: no cyanosis or clubbing; no edema Skin: warm and dry Objective Data Vital Signs Vital Signs: Vital Signs Temp Pulse Resp BP Pulse Ox O2 Del Method 08/25/23 10:00 Room Air 04/30/23 06:00 98.2 F 45 L 20 155/86 H 97 04/29/23 22:00 97.4 F L 43 L 20 159/96 H 98 04/29/23 20:00 Room Air Intake/Output Intake/Output: Intake & Output 04/27/23 04/28/23 04/29/23 04/30/23 23:59 23:59 23:59 23:59 Intake Total 220 2610 1240 Output Total 300 1000 Balance -80 2610 240 Meds/Results Medications: Active Medications Generic Name Dose Route Start Last Admin Trade Name Freq PRN Reason Stop Dose Admin Acetaminophen 650 mg 04/28/23 03:41 Acetaminophen 325 Mg Tablet PO Q4H PRN Mild Pain (1-3) or Fever Amlodipine
[2023-04-30] MEDS: ERTAPENEM SODIUM 0.5 GM in SODIUM CHLORIDE 0.9% IV 50 ML IVPB (16:46)
[2023-04-30 17:02] LABS: Glucose Point of Care 91 mg/dl (65-105)
[2023-04-30 20:00] VITALS: PULSE 51; RESP 16; O2SAT 99
[2023-04-30 21:26] LABS: Glucose Point of Care 130 mg/dl (65-105)
[2023-04-30 22:00] VITALS: BP 200/62; PULSE 64; RESP 18; TEMP 37; O2SAT 99
[2023-04-30] MEDS: hydrALAZINE HCL 20 MG/ML VIAL 10 MG IV PUSH (22:55)
[2023-05-01 04:58] LABS: Glucose Point of Care 100 mg/dl (65-105)
[2023-05-01 05:58] LABS: Basophils Percent Auto 0.1 % (0.2-1.2); Eosinophils Absolute Auto 0.3 K/mm3 (0-0.3); Hemoglobin 9.7 g/dL (14.0-18.0); Immature Granulocyte Absolute 0.02 K/mm3 (0.00-0.031); Immature Granulocyte Percent A 0.3 % (0-0.5); Lymphocytes Absolute Auto 1.28 K/mm3 (0.9-3.2); Lymphocytes Percent Auto 18.2 % (18.3-44.2); Mean Corpuscular HGB Conc 31.3 g/dl (32-36); Mean Corpuscular Hemoglobin 28.9 pg (26-34); Mean Corpuscular Volume 92.3 fl (80-100); Mean Platelet Volume 12.3 fl (7.4-10.4); Monocytes Absolute Auto 0.7 K/mm3 (0.1-0.6); Monocytes Percent Auto 9.8 % (2.6-8.5); Neutrophils Absolute Auto 4.7 K/mm3 (1.3-6.7); Neutrophils Percent Auto 67.6 % (45.5-73.1); Platelet Count Result 154 k/mm3 (150-375); Red Blood Count 3.36 M/mm3 (4.6-6.20); Red Cell Distribution Width 13.3 % (11.5-14.5)
[2023-05-01 06:00] VITALS: BP 163/65; PULSE 53; RESP 16; TEMP 37.4; O2SAT 100
[2023-05-01 06:11] LABS: Alanine Aminotransferase 16 U/L (6-50); Albumin Level 3.2 g/dL (3.5-5.1); Alkaline Phosphatase 52 U/L (38-126); Anion Gap 3 mmol/L (8-16); Aspartate Amino Transferase 24 U/L (17-59); Bilirubin,Total 0.3 mg/dL (0.2-1.3); Blood Urea Nitrogen 70 mg/dL (9-20); Calcium 8.6 mg/dL (8.4-10.2); Carbon Dioxide 24 mmol/L (22-30); Chloride 117 mmol/L (98-107); Estimated CRCL calculation 16 ml/min; Estimated Glomerular Filt Rate 18; Glucose 98 mg/dL (65-110); Magnesium 1.4 mg/dL (1.6-2.3); Potassium 3.8 mmol/L (3.4-5.0); Sodium 144 mmol/L (137-145)
[2023-05-01 07:45] LABS: Glucose Point of Care 94 mg/dl (65-105)
[2023-05-01 08:47] LABS: Glucose Point of Care 96 mg/dl (65-105)
[2023-05-01 09:06] VITALS: O2SAT 100
--- NOTE | 2023-05-01 09:17 | PM.IMPN ---
Progress Note: A&P Assessment and Plan (1) Acute UTI: Code(s): N39.0 - Urinary tract infection, site not specified Status: Acute Assessment and Plan: continue iv fluids changed IV antibiotics to Ertapenem for a 5 day course (EOT 05/06) as urine culture is growing e-coli and only susceptible to IV agents (2) Acute kidney injury superimposed on CKD: Code(s): N17.9 - Acute kidney failure, unspecified; N18.9 - Chronic kidney disease, unspecified Status: Acute Assessment and Plan: watch BMP watch UO Cr is slowly downtrending. Cr 4.40-->4.0-->3.90. Medical records from Dr. Cooper's office were obtained however we were only able to get 1 BMP dated from . According to the office they recently updated their computer system and this is all they can acquire this time. At that point his creatinine was 3.06. Creatinine remains at 3.9 today however he did not get his IV fluids overnight due to loss of IV access. consult nephrology (3) Altered mental status: Qualifiers: Altered mental status type: unspecified Qualified Code(s): R41.82 - Altered mental status, unspecified Code(s): R41.82 - Altered mental status, unspecified Status: Acute Assessment and Plan: likely secondary to UTI pt has history of dementia and stroke Speech did see him this admission and recommended soft and bite-sized with mildly thick liquids due to inability to self-regulate. He needs to be upright and promted one sip at a time . NO STRAWS. (4) Insulin dependent diabetes mellitus: Status: Acute Assessment and Plan: accuchecks, SSI Lantus 12 units at HS (5) Hypertension: Code(s): I10 - Essential (primary) hypertension Status: Acute Assessment and Plan: watch bp in hospital reduce fluids watch blood pressure remain high in hospital (6) Dementia: Code(s): F03.90 - Unspecified dementia, unspecified severity, without behavioral disturbance, psychotic disturbance, mood disturbance, and anxiety Status: Acute Assessment and Plan: baseline dementia (7) A-fib: Code(s): I48.91 - Unspecified atrial fibrillation Status: Acute Assessment and Plan: chronic and stable watch on telemetry On Xarelto Plan IV antibiotics needed through 05/06 IV fluids until creatinine closer to 3.0 Subjective Date/time seen: 05/01/23 09:17 Interval history: This is a 72-year-old gentleman with a past medical history of AFib, dementia, diabetes, and hypertension who presents to the ER after a fall at his detention. Per the nurse at his detention he normally participate in his care and is able to follow commands but mumbles. On exam today he is lying in bed with a blanket over his head. He is alert and oriented to person and he knows he is in the hospital. He is unable to carry on a conversation, he just keeps nodding his head no when asked if he is in pain. Urinalysis is concerning for UTI and urine culture is growing E coli ESBL. He will need 5 days of IV Ertapenem. 05/01: Patient seen resting in bed. He is alert and oriented to person. He denies any complaints. Says he is eating and drinking without difficulty. I reviewed planning care with him and nods in agreement. Review of Systems Review of Systems: ROS unobtainable: Yes unobtainable due to mental status Exam Narrative: General: chronically ill, elderly appear 72-year-old male, laying in bed, comfortable, NARD Neuro: awake, alert and oriented x1-2, speech mumbled, no focal neuro deficits noted HEENMT: normocephalic, atraumatic, EOMI, sclerae anicteric, moist oral mucosa Respiratory: Clear to auscultation bilaterally without crackles, rhonchi or wheezes, nonlabored breathing Cardio: regular rate, regular rhythm with S1-S2 Abdomen: nondistended, normoactive bowel sounds, soft, nontender to palpation Extremities: no edema, erythema, or tenderness to pal
[2023-05-01] MEDS: hydroCHLOROthiazide 25 MG TABLET PO ×3 (09:48→16:21)
[2023-05-01] MEDS: hydrALAZINE HCL 50 MG TABLET PO ×3 (09:48→16:21)
[2023-05-01] MEDS: RIVAROXABAN 15 MG TABLET PO (09:48)
[2023-05-01] MEDS: ATORVASTATIN 20 MG TABLET PO (09:48)
[2023-05-01] MEDS: hydrALAZINE HCL 25 MG TABLET PO ×3 (09:48→16:21)
[2023-05-01] MEDS: amLODIPine BESYLATE 5 MG TABLET 10 MG PO (09:48)
[2023-05-01] MEDS: MAGNESIUM OXIDE 400 MG TABLET PO (09:52)
[2023-05-01] MEDS: cloNIDine 0.3 MG/24 HR PATCH 1 PATCH TRANSDERM (10:12)
--- NOTE | 2023-05-01 12:31 | P.PNNP_ITS ---
Progress Note: A&P Assessment and Plan (1) LINDSEY (acute kidney injury): Code(s): N17.9 - Acute kidney failure, unspecified Status: Acute Assessment and Plan: * unclear what baseline creatinine normally runs * only old records available are from March 2022 -- creatinine at that time was 3.06mg/dl * hence, he probably does have an element of CKD at baseline * evaluation to date: * renal ultrasound consistent with CKD * urine electrolytes non-prerenal * urine eosinophils negative * CPK normal * UA indicative of infection (see #2) * follow trend of labs with and UOP (2) Acute UTI: Code(s): N39.0 - Urinary tract infection, site not specified Status: Acute Assessment and Plan: * as noted by admission UA * urine culture resuls with ESBL E.coli * on adjusted antibiotic therapy (3) Altered mental status: Qualifiers: Altered mental status type: unspecified Qualified Code(s): R41.82 - Altered mental status, unspecified Code(s): R41.82 - Altered mental status, unspecified Status: Acute Assessment and Plan: * resolving if not resolved * presumably secondary to UTI * complicated by history of dementia and CVAs * follow mentation (4) Hypertension: Code(s): I10 - Essential (primary) hypertension Status: Chronic Assessment and Plan: * resume home medications * follow trend of hemodynamics (5) A-fib: Code(s): I48.91 - Unspecified atrial fibrillation Status: Acute Assessment and Plan: * chronic issue * rate control * on anticoagulation (6) Insulin dependent diabetes mellitus: Status: Chronic Assessment and Plan: * follow accu-checks * glycemic control per hospitalists Will continue to follow. Subjective Date/time seen: 05/01/23 12:31 Interval history: Follow-up for acute kidney injury/acute renal failure on chronic kidney disease. Mentation seems stable if not better at this time; renal function also appears stable if not a tad better; continues to make reasonable urine output; no apparent distress noted; no issues overnight or earlier this morning. Exam Narrative: General: elderly AA male who appears in NAD Heart: normal S1 and S2; no rub Lungs: clear to auscultation Abdomen: soft, nontender, nondistended, positive bowel sounds Extremities: no cyanosis or clubbing; no edema Skin: warm and intact Objective Data Vital Signs Vital Signs: Vital Signs Temp Pulse Resp BP Pulse Ox O2 Del Method 05/01/23 12:00 99 F 55 L 18 162/78 H 100 05/01/23 09:06 100 Room Air 05/01/23 06:00 99.3 F 53 L 16 163/65 H 100 04/30/23 22:00 98.6 F 64 18 200/62 H 99 04/30/23 20:00 51 L 16 99 Room Air Intake/Output Intake/Output: Intake & Output 04/28/23 04/29/23 04/30/23 05/01/23 23:59 23:59 23:59 23:59 Intake Total 220 2610 1630 240 Output Total 300 1900 1200 Balance -80 2610 270 960 Meds/Results Medications: Active Medications Generic Name Dose Route Start Last Admin Trade Name Freq PRN Reason Stop Dose Admin Acetaminophen 650 mg 04/28/23 03:41 Acetaminophen 325 Mg T
--- NOTE | 2023-05-01 12:31 | PM.PNNEP ---
Progress Note: A&P Assessment and Plan (1) LINDSEY (acute kidney injury): Code(s): N17.9 - Acute kidney failure, unspecified Status: Acute Assessment and Plan: unclear what baseline creatinine normally runs only old records available are from March 2022 -- creatinine at that time was 3.06mg/dl hence, he probably does have an element of CKD at baseline evaluation to date: renal ultrasound consistent with CKD urine electrolytes non-prerenal urine eosinophils negative CPK normal UA indicative of infection (see #2) follow trend of labs with and UOP (2) Acute UTI: Code(s): N39.0 - Urinary tract infection, site not specified Status: Acute Assessment and Plan: as noted by admission UA urine culture resuls with ESBL E.coli on adjusted antibiotic therapy (3) Altered mental status: Qualifiers: Altered mental status type: unspecified Qualified Code(s): R41.82 - Altered mental status, unspecified Code(s): R41.82 - Altered mental status, unspecified Status: Acute Assessment and Plan: resolving if not resolved presumably secondary to UTI complicated by history of dementia and CVAs follow mentation (4) Hypertension: Code(s): I10 - Essential (primary) hypertension Status: Chronic Assessment and Plan: resume home medications follow trend of hemodynamics (5) A-fib: Code(s): I48.91 - Unspecified atrial fibrillation Status: Acute Assessment and Plan: chronic issue rate control on anticoagulation (6) Insulin dependent diabetes mellitus: Status: Chronic Assessment and Plan: follow accu-checks glycemic control per hospitalists Will continue to follow. Subjective Date/time seen: 05/01/23 12:31 Interval history: Follow-up for acute kidney injury/acute renal failure on chronic kidney disease. Mentation seems stable if not better at this time; renal function also appears stable if not a tad better; continues to make reasonable urine output; no apparent distress noted; no issues overnight or earlier this morning. Exam Narrative: General: elderly AA male who appears in NAD Heart: normal S1 and S2; no rub Lungs: clear to auscultation Abdomen: soft, nontender, nondistended, positive bowel sounds Extremities: no cyanosis or clubbing; no edema Skin: warm and intact Objective Data Vital Signs Vital Signs: Vital Signs Temp Pulse Resp BP Pulse Ox O2 Del Method 05/01/23 12:00 99 F 55 L 18 162/78 H 100 05/01/23 09:06 100 Room Air 05/01/23 06:00 99.3 F 53 L 16 163/65 H 100 04/30/23 22:00 98.6 F 64 18 200/62 H 99 04/30/23 20:00 51 L 16 99 Room Air Intake/Output Intake/Output: Intake & Output 04/28/23 04/29/23 04/30/23 05/01/23 23:59 23:59 23:59 23:59 Intake Total 220 2610 1630 240 Output Total 300 1900 1200 Balance -80 5240 -270 -960 Meds/Results Medications: Active Medications Generic Name Dose Route Start Last Admin Trade Name Freq PRN Reason Stop Dose Admin Acetaminophen 650 mg 04/28/23 03:41 Acetaminophen 325 Mg Tablet PO Q4H PRN Mild Pain (1-3) or Fever Amlodipine Besylate 10 mg 04/29/23 09:00 05/01/23 09:48 Amlodipine Besylate 5 Mg Tablet PO 10 mg DAILY URIAH Administration Atorvastatin Calcium 20 mg 04/29/23 09:00 05/01/23 09:48 Atorvastatin 20 Mg Tablet PO 20 mg DAILY URIAH Administration Clonidine HCl 1 patch 05/01/23 09:00 05/01/23 10:12 Clonidine 0.3 Mg/24 Hr Patch TRANSDERM 1 patch Sa@0900 URIAH Administration Dextrose 12.5 gm 04/28/23 17:08 Dextrose 50% 25 Gm/50 Ml Syringe IV PUSH PRN PRN Hypoglycemia Protocol Glucagon 1 mg 04/28/23 17:08 Glucagon For Inj 1 Mg Vial IM PRN PRN Hypoglycemia Protocol Glucose 15 gm 04/28/23 17:08 Glucose Oral Gel 15 Gm Of Glucse In 37.5 Gm Tube PO PRN PRN H
[2023-05-01 12:40] LABS: Glucose Point of Care 175 mg/dl (65-105)
[2023-05-01 14:00] VITALS: BP 182/78; PULSE 55; RESP 18; TEMP 37.2; O2SAT 100
[2023-05-01] MEDS: hydrALAZINE HCL 20 MG/ML VIAL 10 MG IV PUSH ×2 (16:20→21:35)
[2023-05-01 16:48] LABS: Glucose Point of Care 131 mg/dl (65-105)
[2023-05-01] MEDS: ERTAPENEM SODIUM 0.5 GM in SODIUM CHLORIDE 0.9% IV 50 ML IVPB (17:13)
--- NOTE | 2023-05-01 19:00 | PC.NURSE ---
On 05/01/23, the [employer] TECHNICIAN, provided care and completed [employer] documentation on this patient. I have reviewed the LPNs documentation and agree with the findings.
[2023-05-01] MEDS: DEXTROSE 5%/0.45% SOD CHL 1,000 ML 50 ML IV CONT (19:38)
[2023-05-01] MEDS: INSULIN ASPART (*BKC) 100 UNITS/ML SUB-Q (21:23)
[2023-05-01] MEDS: INSULIN GLARGINE (*BKC) 100 UNITS/ML 12 UNITS SUB-Q (21:24)
[2023-05-01 21:44] LABS: Glucose Point of Care 259 mg/dl (65-105)
[2023-05-01 22:00] VITALS: BP 190/73; PULSE 56; RESP 18; TEMP 36.8; O2SAT 99
[2023-05-02 00:31] VITALS: BP 150/104
[2023-05-02 04:48] VITALS: BP 156/72; PULSE 51; RESP 16; TEMP 36.2; O2SAT 100
[2023-05-02 05:58] LABS: Basophils Percent Auto 0.2 % (0.2-1.2); Eosinophils Absolute Auto 0.3 K/mm3 (0-0.3); Eosinophils Percent Auto 4.6 % (0-4.4); Hematocrit 31.6 % (42.0-52.0); Hemoglobin 9.8 g/dL (14.0-18.0); Immature Granulocyte Absolute 0.02 K/mm3 (0.00-0.031); Immature Granulocyte Percent A 0.3 % (0-0.5); Lymphocytes Absolute Auto 1.49 K/mm3 (0.9-3.2); Lymphocytes Percent Auto 25.2 % (18.3-44.2); Mean Corpuscular Hemoglobin 28.7 pg (26-34); Mean Corpuscular Volume 92.4 fl (80-100); Mean Platelet Volume 12.3 fl (7.4-10.4); Monocytes Absolute Auto 0.7 K/mm3 (0.1-0.6); Neutrophils Absolute Auto 3.5 K/mm3 (1.3-6.7); Neutrophils Percent Auto 58.7 % (45.5-73.1); Platelet Count Result 166 k/mm3 (150-375); Red Blood Count 3.42 M/mm3 (4.6-6.20); Red Cell Distribution Width 13.2 % (11.5-14.5); White Blood Count 5.9 K/mm3 (4.5-10.0)
[2023-05-02 06:05] LABS: INR 1.2; Prothrombin Time 15.9 Seconds (11.1-14.7)
[2023-05-02 06:06] LABS: Partial Thromboplastin Time 36.6 SECONDS (22.3-36.8)
[2023-05-02 06:08] LABS: Alanine Aminotransferase 15 U/L (6-50); Albumin Level 3.2 g/dL (3.5-5.1); Alkaline Phosphatase 55 U/L (38-126); Anion Gap 1 mmol/L (8-16); Aspartate Amino Transferase 21 U/L (17-59); Bilirubin,Total 0.3 mg/dL (0.2-1.3); Blood Urea Nitrogen 67 mg/dL (9-20); Calcium 8.5 mg/dL (8.4-10.2); Carbon Dioxide 25 mmol/L (22-30); Chloride 117 mmol/L (98-107); Estimated CRCL calculation 16 ml/min; Estimated Glomerular Filt Rate 18; Glucose 104 mg/dL (65-110); Magnesium 1.6 mg/dL (1.6-2.3); Sodium 143 mmol/L (137-145)
--- NOTE | 2023-05-02 07:13 | PM.IMPN ---
Progress Note: A&P Assessment and Plan (1) Acute UTI: Code(s): N39.0 - Urinary tract infection, site not specified Status: Acute Assessment and Plan: continue iv fluids changed IV antibiotics to Ertapenem for a 5 day course (EOT 05/06) as urine culture is growing e-coli and only susceptible to IV agents (2) Acute kidney injury superimposed on CKD: Code(s): N17.9 - Acute kidney failure, unspecified; N18.9 - Chronic kidney disease, unspecified Status: Acute Assessment and Plan: watch BMP watch UO Cr is slowly downtrending. Cr 4.40-->4.0-->3.90. Medical records from Dr. Cooper's office were obtained however we were only able to get 1 BMP dated from . According to the office they recently updated their computer system and this is all they can acquire this time. At that point his creatinine was 3.06. Creatinine remains at 3.9 today however he did not get his IV fluids overnight due to loss of IV access. consult nephrology (3) Altered mental status: Qualifiers: Altered mental status type: unspecified Qualified Code(s): R41.82 - Altered mental status, unspecified Code(s): R41.82 - Altered mental status, unspecified Status: Acute Assessment and Plan: likely secondary to UTI pt has history of dementia and stroke Speech did see him this admission and recommended soft and bite-sized with mildly thick liquids due to inability to self-regulate. He needs to be upright and promted one sip at a time . NO STRAWS. (4) Insulin dependent diabetes mellitus: Status: Acute Assessment and Plan: accuchecks, SSI Lantus 12 units at HS (5) Hypertension: Code(s): I10 - Essential (primary) hypertension Status: Acute Assessment and Plan: Blood pressures reviewed and have continued to remain high with SBP in the 180's Will increased hydralazine dose from 75 mg TID to 100 mg TID (6) Dementia: Code(s): F03.90 - Unspecified dementia, unspecified severity, without behavioral disturbance, psychotic disturbance, mood disturbance, and anxiety Status: Acute Assessment and Plan: baseline dementia (7) A-fib: Code(s): I48.91 - Unspecified atrial fibrillation Status: Acute Assessment and Plan: chronic and stable watch on telemetry On Xarelto Plan IV antibiotics needed through 05/06 Subjective Date/time seen: 05/02/23 07:13 Interval history: This is a 72-year-old gentleman with a past medical history of AFib, dementia, diabetes, and hypertension who presents to the ER after a fall at his residential. Per the nurse at his residential he normally participate in his care and is able to follow commands but mumbles. On exam today he is lying in bed with a blanket over his head. He is alert and oriented to person and he knows he is in the hospital. He is unable to carry on a conversation, he just keeps nodding his head no when asked if he is in pain. Urinalysis is concerning for UTI and urine culture is growing E coli ESBL. He will need 5 days of IV Ertapenem. 05/01: Patient seen resting in bed. He is alert and oriented to person. He denies any complaints. Says he is eating and drinking without difficulty. I reviewed plan of care with him and nods in agreement. 05/02: NAEON. He is sleeping in bed with the covers over his head. He awakens when I speak to him and denies any complaints at this time. He appropriately interacts with me and follows my commands. He appears back to baseline as per reports from nursing at [facility]. He needs a midline placed and then he can d/c to his facility. Will speak with nephrology about permission to place midline. Continue with IV antibiotics. Review of Systems Review of Systems: ROS unobtainable: Yes unobtainable due to mental status Exam Narrative: General: chronically ill, elderly appear 72-year-old male, laying in bed, comfortable, NARD Neuro: a
[2023-05-02 08:27] LABS: Glucose Point of Care 116 mg/dl (65-105)
[2023-05-02] MEDS: hydrALAZINE HCL 50 MG TABLET 100 MG PO ×3 (10:18→17:01)
[2023-05-02] MEDS: ATORVASTATIN 20 MG TABLET PO (10:19)
[2023-05-02] MEDS: amLODIPine BESYLATE 5 MG TABLET 10 MG PO (10:19)
[2023-05-02] MEDS: hydroCHLOROthiazide 25 MG TABLET PO ×3 (10:19→17:01)
[2023-05-02] MEDS: RIVAROXABAN 15 MG TABLET PO (10:19)
--- NOTE | 2023-05-02 11:36 | PC.NURSE ---
On 05/02/23, the DREDGE PUMPER, provided care and completed [employer] documentation on this patient. I have reviewed the DREDGE PUMPER's documentation and agree with the findings.
[2023-05-02 11:41] LABS: Glucose Point of Care 259 mg/dl (65-105)
[2023-05-02] MEDS: INSULIN ASPART (*BKC) 100 UNITS/ML SUB-Q (11:58)
--- NOTE | 2023-05-02 13:16 | P.PNNP_ITS ---
Progress Note: A&P Assessment and Plan (1) LINDSEY (acute kidney injury): Code(s): N17.9 - Acute kidney failure, unspecified Status: Acute Assessment and Plan: * unclear what baseline creatinine normally runs * only old records available are from March 2022 -- creatinine at that time was 3.06mg/dl * hence, he probably does have an element of CKD at baseline * evaluation to date: * renal ultrasound consistent with CKD * urine electrolytes non-prerenal * urine eosinophils negative * CPK normal * UA indicative of infection (see #2) * follow trend of labs with and UOP (2) Acute UTI: Code(s): N39.0 - Urinary tract infection, site not specified Status: Acute Assessment and Plan: * as noted by admission UA * urine culture resuls with ESBL E.coli * on antibiotic therapy (3) Altered mental status: Qualifiers: Altered mental status type: unspecified Qualified Code(s): R41.82 - Altered mental status, unspecified Code(s): R41.82 - Altered mental status, unspecified Status: Acute Assessment and Plan: * resolving if not resolved * presumably secondary to UTI * complicated by history of dementia and CVAs * follow mentation (4) Hypertension: Code(s): I10 - Essential (primary) hypertension Status: Chronic Assessment and Plan: * resume home medications * follow trend of hemodynamics (5) A-fib: Code(s): I48.91 - Unspecified atrial fibrillation Status: Acute Assessment and Plan: * chronic issue * rate control * on anticoagulation (6) Insulin dependent diabetes mellitus: Status: Chronic Assessment and Plan: * follow accu-checks * glycemic control per hospitalists Will continue to follow. Subjective Date/time seen: 05/02/23 13:16 Interval history: Follow-up for acute kidney injury/acute renal failure on chronic kidney disease. Renal function relatively stable at this time as is mentation; no apparent distress noted; tolerating IV antibiotic therapy with tentative plan to complete course of IV antibiotics on discharge to his nursing facility; no issues/events overnight or earlier today. Exam Narrative: General: elderly AA male who appears in NAD Heart: normal S1 and S2; no rub Lungs: clear to auscultation Abdomen: soft, nontender, nondistended, positive bowel sounds Extremities: no cyanosis or clubbing; no edema Skin: no rash or nodules Objective Data Vital Signs Vital Signs: Vital Signs Temp Pulse Resp BP Pulse Ox O2 Del Method 05/02/23 13:00 97.5 F L 51 L 22 H 146/59 H 100 05/02/23 10:15 Room Air 05/02/23 08:35 Room Air 05/02/23 04:48 97.2 F L 51 L 16 156/72 H 100 05/01/23 20:00 Room Air 05/02/23 00:31 150/104 H 05/01/23 22:00 98.2 F 56 L 18 190/73 H 99 Intake/Output Intake/Output: Intake & Output 04/29/23 04/30/23 05/01/23 05/02/23 23:59 23:59 23:59 23:59 Intake Total 2610 2630 810 700 Output Total 1900 2550 650 Balance 2610 730 -1740 50 Meds/Results Medications: Active Medications Generic Name Dose Route Start Last Admin Trade Name
--- NOTE | 2023-05-02 13:16 | PM.PNNEP ---
Progress Note: A&P Assessment and Plan (1) LINDSEY (acute kidney injury): Code(s): N17.9 - Acute kidney failure, unspecified Status: Acute Assessment and Plan: unclear what baseline creatinine normally runs only old records available are from March 2022 -- creatinine at that time was 3.06mg/dl hence, he probably does have an element of CKD at baseline evaluation to date: renal ultrasound consistent with CKD urine electrolytes non-prerenal urine eosinophils negative CPK normal UA indicative of infection (see #2) follow trend of labs with and UOP (2) Acute UTI: Code(s): N39.0 - Urinary tract infection, site not specified Status: Acute Assessment and Plan: as noted by admission UA urine culture resuls with ESBL E.coli on antibiotic therapy (3) Altered mental status: Qualifiers: Altered mental status type: unspecified Qualified Code(s): R41.82 - Altered mental status, unspecified Code(s): R41.82 - Altered mental status, unspecified Status: Acute Assessment and Plan: resolving if not resolved presumably secondary to UTI complicated by history of dementia and CVAs follow mentation (4) Hypertension: Code(s): I10 - Essential (primary) hypertension Status: Chronic Assessment and Plan: resume home medications follow trend of hemodynamics (5) A-fib: Code(s): I48.91 - Unspecified atrial fibrillation Status: Acute Assessment and Plan: chronic issue rate control on anticoagulation (6) Insulin dependent diabetes mellitus: Status: Chronic Assessment and Plan: follow accu-checks glycemic control per hospitalists Will continue to follow. Subjective Date/time seen: 05/02/23 13:16 Interval history: Follow-up for acute kidney injury/acute renal failure on chronic kidney disease. Renal function relatively stable at this time as is mentation; no apparent distress noted; tolerating IV antibiotic therapy with tentative plan to complete course of IV antibiotics on discharge to his nursing facility; no issues/events overnight or earlier today. Exam Narrative: General: elderly AA male who appears in NAD Heart: normal S1 and S2; no rub Lungs: clear to auscultation Abdomen: soft, nontender, nondistended, positive bowel sounds Extremities: no cyanosis or clubbing; no edema Skin: no rash or nodules Objective Data Vital Signs Vital Signs: Vital Signs Temp Pulse Resp BP Pulse Ox O2 Del Method 05/02/23 13:00 97.5 F L 51 L 22 H 146/59 H 100 05/02/23 10:15 Room Air 05/02/23 08:35 Room Air 05/02/23 04:48 97.2 F L 51 L 16 156/72 H 100 05/01/23 20:00 Room Air 05/02/23 00:31 150/104 H 05/01/23 22:00 98.2 F 56 L 18 190/73 H 99 Intake/Output Intake/Output: Intake & Output 04/29/23 04/30/23 05/01/23 05/02/23 23:59 23:59 23:59 23:59 Intake Total 2610 2630 810 700 Output Total 1900 2550 650 Balance 2610 730 -1740 50 Meds/Results Medications: Active Medications Generic Name Dose Route Start Last Admin Trade Name Freq PRN Reason Stop Dose Admin Acetaminophen 650 mg 04/28/23 03:41 Acetaminophen 325 Mg Tablet PO Q4H PRN Mild Pain (1-3) or Fever Amlodipine Besylate 10 mg 04/29/23 09:00 05/02/23 10:19 Amlodipine Besylate 5 Mg Tablet PO 10 mg DAILY URIAH Administration Atorvastatin Calcium 20 mg 04/29/23 09:00 05/02/23 10:19 Atorvastatin 20 Mg Tablet PO 20 mg DAILY URIAH Administration Clonidine HCl 1 patch 05/01/23 09:00 05/01/23 10:12 Clonidine 0.3 Mg/24 Hr Patch TRANSDERM 1 patch Sa@0900 URIAH Administration Dextrose 12.5 gm 04/28/23 17:08 Dextrose 50% 25 Gm/50 Ml Syringe IV PUSH PRN PRN Hypoglycemia Protocol Glucagon 1 mg 04/28/23 17:08 Glucagon For Inj 1 Mg Vial IM PRN PRN Hypoglycemia Protocol Glucose 15
--- NOTE | 2023-05-02 13:27 | PM.DS ---
DS: Admitting Diagnosis Discharge Date May 03 Admitting Diagnosis AMS, UTI DS: Discharge Diagnosis Discharge Diagnosis (1) Acute UTI: Code(s): N39.0 - Urinary tract infection, site not specified Status: Acute Assessment and Plan: continue iv fluids changed IV antibiotics to Ertapenem for a 5 day course (EOT 05/06) as urine culture is growing e-coli and only susceptible to IV agents (2) Acute kidney injury superimposed on CKD: Code(s): N17.9 - Acute kidney failure, unspecified; N18.9 - Chronic kidney disease, unspecified Status: Acute Assessment and Plan: watch BMP watch UO Cr is slowly downtrending. Cr 4.40-->4.0-->3.90. Medical records from Dr. Cooper's office were obtained however we were only able to get 1 BMP dated from . According to the office they recently updated their computer system and this is all they can acquire this time. At that point his creatinine was 3.06. Creatinine remains at 3.9 today however he did not get his IV fluids overnight due to loss of IV access. consult nephrology (3) Altered mental status: Qualifiers: Altered mental status type: unspecified Qualified Code(s): R41.82 - Altered mental status, unspecified Code(s): R41.82 - Altered mental status, unspecified Status: Acute Assessment and Plan: likely secondary to UTI pt has history of dementia and stroke Speech did see him this admission and recommended soft and bite-sized with mildly thick liquids due to inability to self-regulate. He needs to be upright and promted one sip at a time . NO STRAWS. (4) Insulin dependent diabetes mellitus: Status: Acute Assessment and Plan: accuchecks, SSI Lantus 12 units at HS (5) Hypertension: Code(s): I10 - Essential (primary) hypertension Status: Acute Assessment and Plan: Blood pressures reviewed and have continued to remain high with SBP in the 180's Will increased hydralazine dose from 75 mg TID to 100 mg TID (6) Dementia: Code(s): F03.90 - Unspecified dementia, unspecified severity, without behavioral disturbance, psychotic disturbance, mood disturbance, and anxiety Status: Acute Assessment and Plan: baseline dementia (7) A-fib: Code(s): I48.91 - Unspecified atrial fibrillation Status: Acute Assessment and Plan: chronic and stable watch on telemetry On Xarelto Plan IV antibiotics needed through 05/06 DS: Summary Hospital Course Hospital Course: Interval history: This is a 72-year-old gentleman with a past medical history of AFib, dementia, diabetes, and hypertension who presents to the ER after a fall at his retirement.? Per the nurse at his retirement he normally participate in his care and is able to follow commands but mumbles.? On exam today he is lying in bed with a blanket over his head.? He is alert and oriented to person and he knows he is in the hospital.? He is unable to carry on a conversation, he just keeps nodding his head no when asked if he is in pain.? Urinalysis is concerning for UTI and urine culture is growing E coli ESBL.? He will need 5 days of IV Ertapenem. 05/01:? Patient seen resting in bed.? He is alert and oriented to person.? He denies any complaints.? Says he is eating and drinking without difficulty.? I reviewed plan of care with him and nods in agreement. 05/02: NAEON. He is sleeping in bed with the covers over his head. He awakens when I speak to him and denies any complaints at this time. He appropriately interacts with me and follows my commands. He appears back to baseline as per reports from nursing at [facility]. He needs a midline placed and then he can d/c to his facility. Will speak with nephrology about permission to place midline. Continue with IV antibiotics. Status at Discharge Cognitive/behavioral status at discharge: Baseline which is A&O 2, mumbled speech, follows commands Nomi
[2023-05-02 14:00] VITALS: BP 146/59; PULSE 51; RESP 22; TEMP 36.4; O2SAT 100
[2023-05-02 14:53] LABS: SARS-CoV-2 RNA PCR Negative (Negative)
[2023-05-02] MEDS: ERTAPENEM SODIUM 0.5 GM in SODIUM CHLORIDE 0.9% IV 50 ML IVPB (15:49)
[2023-05-02 16:38] LABS: Glucose Point of Care 112 mg/dl (65-105)
== END 2023-05-02 17:50 | DRG 690 ==
LOC: ANHED 04-28 03:46 → ANH3MEDSUR 04-28 03:56
PROVIDERS: Family Medicine; Internal Medicine Nephrology; Nurse Practitioner; Admitting Provider Internal Medicine; Emergency Provider Preventive Medicine Aerospace Medicine; PCP Internal Medicine; Visit Provider Nurse Practitioner Acute Care
DX: N39.0 Urinary tract infection, site not specified (principal); N17.9 Acute kidney failure, unspecified; I48.20 Chronic atrial fibrillation, unspecified; Z16.12 Extended spectrum beta lactamase (ESBL) resistance; B96.20 Unspecified Escherichia coli [E. coli] as the cause of diseases classified elsewhere; W06.XXXA Fall from bed, initial encounter; E11.22 Type 2 diabetes mellitus with diabetic chronic kidney disease; F03.90 Unspecified dementia, unspecified severity, without behavioral disturbance, psychotic disturbance, mood disturbance, and anxiety; I12.9 Hypertensive chronic kidney disease with stage 1 through stage 4 chronic kidney disease, or unspecified chronic kidney disease; N18.9 Chronic kidney disease, unspecified; Z79.4 Long term (current) use of insulin; Z79.01 Long term (current) use of anticoagulants; Z86.73 Personal history of transient ischemic attack (TIA), and cerebral infarction without residual deficits; Z20.822 Contact with and (suspected) exposure to COVID-19
CPT/HCPCS: 36415; 36600; 70450; 71045; 71250; 74176; 76775; 80048; 80053; 80307; 81001; 81050; 82550; 82570; 82805; 82948; 83036; 83735; 84100; 84156; 84300; 84540; 85025; 85610; 85730; 85999; 87040; 87077; 87086; 87088; 87186; 87635; 92610; 93005; 96365; 96366; 97161; 97165; 99285; A9270; G0378; J0360; J0692; J0696; J1335; J1815; J1836; J7030

== ENCOUNTER 2023-10-01 20:24 | Inpatient (IN) | payer MEDICARE, MEDICAID, SELFPAY ==
--- NOTE | ~2023-10-01 | CT_ITS ---
EXAMINATION: CT abdomen pelvis wo con DATE: 10/02/2023 01:30 INDICATION: UTI TECHNIQUE: Computed tomography (CT) of the abdomen and pelvis was performed without intravenous contr ast. The dose-length product was 738.86 mGy-cm. Automated exposure control and iterative reconstructi on technique were employed. COMPARISON: CT dated 04/28/2023. FINDINGS: There is patchy groundglass opacities in the lung bases, left greater than right, consisten t with pneumonia. Cardiomegaly. No significant pleural or pericardial effusion. Bladder wall thickeni ng, suspicious for cystitis. Nonobstructive bowel gas pattern with moderate colonic fecal loading. No significant vascular abnormality. The liver, spleen, pancreas, adrenal glands and right kidney are u nremarkable. There is a left renal cyst. No free air or free fluid. Moderate lumbar spondylosis. IMPRESSION: 1. Diffuse eccentric bladder wall thickening, suspicious for cystitis. Correlate clinically. 2: Patchy groundglass opacities of the lung bases, consistent with pneumonia. Reviewed, dictated and finalized at location A. AND SHOE INSPECTOR IMPRESSION: 1. Diffuse eccentric bladder wall thickening, suspicious for cystitis. Correlat e clinically. 2: Patchy groundglass opacities of the lung bases, consistent with pneumonia.
--- NOTE | ~2023-10-01 | CT_ITS ---
EXAMINATION: CT brain wo con DATE: 10/01/2023 21:20 INDICATION: Fall. TECHNIQUE: Computed tomography (CT) of the head was performed without intravenous contrast. The mA wa s adjusted according to patient size. Iterative reconstruction technique was employed. The dose-lengt h product was 681.00 mGy-cm. COMPARISON: Head CT 04/28/2023 FINDINGS: There are old infarcts in the cerebellum bilaterally. There are old infarcts involving left frontal, temporal, and parietal lobes, left insula, left basal ganglia, and left thalamus. There is an old infarct in the right peritrigonal white matter. There is an old infarct in the right basal bo glia. There is no intracranial hemorrhage, acute infarction, or abnormal intracranial mass lesion. Th ere is ex vacuo dilatation of left lateral ventricle. There is complete opacification of left maxilla ry sinus. The orbits are normal. The mastoid air cells are normal. IMPRESSION: 1. Multiple old infarcts in the brain. Reviewed, dictated and finalized at location E. RY SHEAR OPERATOR
--- NOTE | ~2023-10-01 | US_ITS ---
EXAMINATION: US renal BI DATE: 10/02/2023 17:34 INDICATION: elevated creatinine TECHNIQUE: Multiple grayscale and Doppler ultrasound images of the kidneys were obtained. COMPARISON: CT abdomen pelvis, same date. FINDINGS: The right kidney measures 9.3 x 4.7 x 5.8 cm. The left kidney measures 9.7 x 4.3 x 3.8 cm. The kidney s demonstrate normal parenchymal echogenicity. Simple left renal cysts. There is no hydronephrosis. B ladder wall thickening. Posterior intraluminal bladder debris. IMPRESSION: Bladder wall thickening may reflect a component of cystitis. Proteinaceous, crystalline, or hemorrhag ic bladder debris. Correlate with urinalysis. Reviewed, dictated and finalized at location K. PAINTER IMPRESSION: Bladder wall thickening may reflect a component of cystitis. Proteinaceous, cry stalline, or hemorrhagic bladder debris. Correlate with urinalysis.
--- NOTE | ~2023-10-01 | XR_ITS ---
EXAMINATION: XR chest 1V DATE: 10/01/2023 21:21 INDICATION: Fall. TECHNIQUE: A single frontal view of the chest was obtained. COMPARISON: Chest single view 04/28/2023, chest CT 04/28/2023 FINDINGS: There is no pneumonia, pleural effusion, or pneumothorax. Cardiomegaly is noted. There is a left chest wall pacer with leads in the right atrium and right ventricle. There is an intrathoracic goiter. IMPRESSION: 1. Cardiomegaly. 2. Intrathoracic goiter. Reviewed, dictated and finalized at location E. TER FOREMAN
[2023-10-01 20:25] VITALS: BP 146/85; PULSE 49; RESP 23; TEMP 36.4; O2SAT 98
[2023-10-01 20:31] LABS: Glucose Point of Care 50 mg/dl (65-105)
--- NOTE | 2023-10-01 20:36 | ECG_ITS ---
Measurements Intervals [place] Rate: 46 P: HI: 0 QRS: -54 QRSD: 160 T: 136 QT: 533 QTc: 469 Interpretive Statements ECTOPIC ATRIAL RHYTHM WITH AV DISSOCIATION JUNCTIONAL ESCAPE RHYTHM RIGHT BUNDLE BRANCH BLOCK LEFT ANTERIOR FASCICULAR BLOCK LEFT VENTRICULAR HYPERTROPHY AND ST-T CHANGE ST-T WAVE ABNORMALITY IN ANTEROLATERAL LEADS- CONSIDER ISCHEMIA BASELINE ARTIFACT- V4-V6 ABNORMAL ECG COMPARED TO ECG 04/27/2023 23:11:03 LEFT VENTRICULAR HYPERTROPHY NOW PRESENT ST-T WAVE ABNORMALITY NOW PRESENT Electronically Signed On 10-01-2023 21:36:59 MINING AND QUARRYING MACHINERY REPAIRER by Jose Roberto Lindo D.O.
[2023-10-01 20:41] LABS: Basophils Percent Auto 0.2 % (0.2-1.2); Eosinophils Absolute Auto 0.2 K/mm3 (0-0.3); Eosinophils Percent Auto 2.3 % (0-4.4); Hematocrit 30.8 % (42.0-52.0); Hemoglobin 9.1 g/dL (14.0-18.0); Immature Granulocyte Absolute 0.05 K/mm3 (0.00-0.031); Immature Granulocyte Percent A 0.5 % (0-0.5); Lymphocytes Absolute Auto 1.72 K/mm3 (0.9-3.2); Lymphocytes Percent Auto 16.9 % (18.3-44.2); Mean Corpuscular HGB Conc 29.5 g/dl (32-36); Mean Corpuscular Volume 94.8 fl (80-100); Mean Platelet Volume 12.3 fl (7.4-10.4); Monocytes Absolute Auto 0.7 K/mm3 (0.1-0.6); Monocytes Percent Auto 7.3 % (2.6-8.5); Neutrophils Absolute Auto 7.4 K/mm3 (1.3-6.7); Neutrophils Percent Auto 72.8 % (45.5-73.1); Platelet Count Result 177 k/mm3 (150-375); Red Blood Count 3.25 M/mm3 (4.6-6.20); Red Cell Distribution Width 14.5 % (11.5-14.5); White Blood Count 10.2 K/mm3 (4.5-10.0)
--- NOTE | 2023-10-01 20:46 | ED.GENADULT ---
HPI - General Adult General Chief complaint: Unspecified Stated complaint: fall, low blood sugar Time Seen by Provider: 10/01/23 20:29 Source: patient and EMS Mode of arrival: EMS Limitations: physical limitation History of Present Illness HPI narrative: This is a 72-year-old male with PMH of CVA, insulin-dependent diabetes, AFib, HTN, dementia [facility] with chief complaint of hypoglycemia and a fall. Per EMS patient's blood sugar on arrival was 46 and he was given D10 and route. His blood sugar here is 50. pre EMS patient is nonverbal. Patient is supplementing history by nodding or shaking his head. This is baseline for him. Endorses cough but denies productive cough. Endorses fevers and chills. Denies abdominal pain, chest pain, shortness of breath, back pain. Related Data Home Medications Medication Instructions Recorded Confirmed amlodipine 10 mg tablet 10 mg PO DAILY 04/28/23 04/28/23 atorvastatin 20 mg tablet 20 mg PO DAILY 04/28/23 04/28/23 clonidine 0.3 mg/24 hr weekly 0.3 mg transdermal DAILY 04/28/23 04/28/23 transdermal patch glucagon 1 mg solution for 1 mg IM PRN PRN Hypoglycemia 04/28/23 04/28/23 injection (Glucagon Emergency Kit) glucagon 1 mg/0.2 mL subcutaneous 1 mg subcut PRN PRN Hypoglycemia 04/28/23 04/28/23 auto-injector (Gvoke HypoPen 1-Pack) hydrochlorothiazide 25 mg tablet 25 mg PO TID 04/28/23 04/28/23 insulin detemir U-100 100 unit/mL 10 unit subcut HS 04/28/23 04/28/23 subcutaneous solution (Levemir U-100 Insulin) insulin regular human 100 unit/mL 3 - 9 sliding scale dose subcut 04/28/23 04/28/23 injection solution (Novolin R PRN PRN Hyperglycemia Regular U-100 Insulin) rivaroxaban 15 mg tablet (Xarelto) 15 mg PO DAILY 04/28/23 04/28/23 Allergies Allergy/AdvReac Type Severity Reaction Status Date / Time No Known Allergies Allergy Verified 04/28/23 03:57 Review of Systems Review of Systems: All systems as dictated in [facility] Past Medical History Medical History (Updated 10/02/23 @ 01:00 by Mirian Jerez MD) A-fib Dementia Hypertension Insulin dependent diabetes mellitus Family History Family History Other Unknown family medical history Social History Social History Smoking status: Never smoker Second hand tobacco smoke exposure: No Alcohol intake: unknown Substance use: unknown Spiritual care concerns: No Exam Narrative: GENERAL: Appears chronically ill. HEAD: Normocephalic, atraumatic. EYES: PERRLA and EOMI. ENT: Nares clear, no rhinorrhea or epistaxis. Mucous membranes moist. Oropharynx without tonsillar hypertrophy exudate or other lesions. NECK: Supple. No adenopathy or masses. CHEST: No respiratory distress. Clear to auscultation. No wheezes rales or rhonchi HEART: Bradycardic With rate of 45. Regular rhythm. No murmur heard. Normal peripheral pulses. ABDOMEN: Soft, nontender, nondistended, normal active bowel sounds. MSK: Normal range of motion. No edema. SKIN: Warm, dry, no rash. NEURO: alert and participating with exam. Aphasic at baseline. Shakes and nods head appropriately for exam questions. PSYCH: Normal mood and affect. Course Vital Signs Vital signs: Vital Signs Temperature 97.6 F 10/01/23 20:25 Pulse Rate 49 L 10/01/23 20:25 Respiratory Rate 23 H 10/01/23 20:25 Blood Pressure 146/85 H 10/01/23 20:25 Pulse Oximetry 98 10/01/23 20:25 Oxygen Delivery Room Air 10/01/23 20:25 Temperature 97.2 F L 10/02/23 01:54 Pulse Rate 63 10/02/23 01:54 Respiratory Rate 16 10/02/23 01:54 Blood Pressure 158/58 H 10/02/23 01:54 Pulse Oximetry 99 10/02/23 01:54 Oxygen Delivery Room Air 10/01/23 20:25 Medical Decision Making MDM Narrative Medical decision making narrative: This is a 72-year-old
[2023-10-01 20:52] VITALS: PULSE 64
[2023-10-01 21:08] LABS: Hypochromasia 1+ (NORMAL); Platelet Estimate Adequate (Adequate); Schistocytes None Seen (NORMAL)
[2023-10-01 21:31] LABS: Troponin I 0.114 ng/mL (0.000-0.034)
[2023-10-01 21:32] LABS: Anion Gap 10 mmol/L (8-16); Blood Urea Nitrogen 107 mg/dL (9-20); Calcium 9.1 mg/dL (8.4-10.2); Carbon Dioxide 25 mmol/L (22-30); Chloride 120 mmol/L (98-107); Estimated CRCL calculation 10 ml/min; Estimated Glomerular Filt Rate 12; Glucose 50 mg/dL (65-110); Potassium 3.5 mmol/L (3.4-5.0); Sodium 155 mmol/L (137-145)
[2023-10-01] MEDS: DEXTROSE 50% 25 GM/50 ML SYRINGE IV PUSH (21:39)
[2023-10-01 22:06] LABS: Glucose Point of Care 129 mg/dl (65-105)
[2023-10-01 22:26] LABS: Thyroid Stimulating Hormone 0.697 uIU/mL (0.465-4.680)
[2023-10-01 22:45] VITALS: BP 164/69; PULSE 45; RESP 14; O2SAT 100
--- NOTE | 2023-10-01 23:24 | ECG_ITS ---
Measurements Intervals [place] Rate: 46 P: [place]: 0 QRS: -59 QRSD: 149 T: 127 QT: 515 QTc: 453 Interpretive Statements SINUS RHYTHM WITH COMPLETE HEART BLOCK JUNCTIONAL ESCAPE RHYTHM RIGHT BUNDLE BRANCH BLOCK LEFT ANTERIOR FASCICULAR BLOCK LEFT VENTRICULAR HYPERTROPHY WITH ST-T CHANGE BORDERLINE ST-T WAVE ABNORMALITY- ANTERIOLATERAL LEADS BASELINE ARTIFACT- I, II, III, AVL, AVF, V1, V4-V6 ABNORMAL ECG COMPARED TO ECG 10/01/2023 20:41:05 NO SIGNIFICANT CHANGES Electronically Signed On 10-02-2023 6:44:39 GROUP HOME MANAGER by Jose Roberto Lindo D.O.
[2023-10-01] MEDS: SODIUM CHLORIDE 0.9% IV 1,000 ML 999 ML IV CONT (23:40)
[2023-10-01 23:52] LABS: NT Pro B Type Natriuretic Pept 3030 pg/mL (19.9-100)
[2023-10-01 23:56] LABS: Appearance Urine Cloudy (Clear); Bacteria Urine 4+ /hpf; Bilirubin Urine Negative (Negative); Blood Urine Negative (Negative); Color Urine Yellow (Yellow); Glucose Urine UA Negative (Negative); Ketones Urine Negative (Negative); Leukocyte Esterase Ur 3+ LEU/UL (Negative); Nitrate Urine Negative (Negative); Non Pathogenic Casts 0-2; Protein Urine 3+ mg/dL (Negative); Specific Grav Ur 1.012 (1.001-1.035); Squamous Epithelial Cell Urine None seen /hpf (Few); Urobilinogen Urine 0.2 mg/dL (<2.0); WBC Urine >100 /hpf; pH Urine 5.5 (5.0-9.0)
[2023-10-01 23:57] LABS: Add Urine Microscopic? YES
[2023-10-01 23:57] LABS: Lactic Acid Reflex 0.8 mmol/L (0.7-2.0)
[2023-10-02] VITALS (16 sets, daily range): BP systolic 134–185; BP diastolic 58–105; PULSE 45–67; RESP 16–24; TEMP 36.2–36.8; O2SAT 96–100; BMI 21.9
[2023-10-02 00:23] LABS: Troponin I 0.114 ng/mL (0.000-0.034)
--- NOTE | 2023-10-02 00:28 | PM.IMHP ---
H&P: HPI History of Present Illness Date/Time: 10/02/23 00:28 Chief Complaint: Fall, low blood sugar Narrative: Patient has history of severe, diabetes mellitus, atrial fibrillation and dementia, resident of a intermediate facility was brought to the ER for fall, his blood sugar was checked in the facility and found to be 46, EMS was called and arrived to the hospital patient got D10. History severely limited as patient is unable to provide details. For a workup in the ER showed that patient has LINDSEY with BUN of 107, creatinine of 5.08 and GFR of 12, he is also hyponatremic, has mildly elevated troponin, also has leukocytosis with mild anemia. . CT scan of the head showed multiple old infarcts of the brain, with chest x-ray showing cardiomegaly and goiter. Blood glucose was monitored in the ER and remained above 120, patient was provided with 1L bolus of normal saline and given 1 g of ceftriaxone for treatment of UTI. His vital signs remained stable. At Bedside, patient remained controlled in bed, has no clear speech and unable to give me details Review of Systems Review of Systems: All systems reviewed & are unremarkable except as noted in HPI and below PMFSH Past Medical History Medical History (Updated 10/02/23 @ 01:00 by Mirian Jerez MD) A-fib Dementia Hypertension Insulin dependent diabetes mellitus Family History Family History Other Unknown family medical history Social History Social History Smoking status: Unknown if ever smoked Second hand tobacco smoke exposure: No Alcohol intake: unknown Substance use: unknown Substance use type: unknown Spiritual care concerns: No Meds Home Medications and Allergies Home Medications Medication Instructions Recorded Confirmed Type amlodipine 10 mg tablet 10 mg PO DAILY 04/28/23 10/02/23 History atorvastatin 20 mg tablet 20 mg PO DAILY 04/28/23 10/02/23 History clonidine 0.3 mg/24 hr weekly 0.3 mg transdermal DAILY 04/28/23 10/02/23 History transdermal patch glucagon 1 mg solution for 1 mg IM PRN PRN Hypoglycemia 04/28/23 10/02/23 History injection (Glucagon Emergency Kit) glucagon 1 mg/0.2 mL subcutaneous 1 mg subcut PRN PRN Hypoglycemia 04/28/23 10/02/23 History auto-injector (Gvoke HypoPen 1-Pack) hydrochlorothiazide 25 mg tablet 25 mg PO TID 04/28/23 10/02/23 History insulin detemir U-100 100 unit/mL 10 unit subcut HS 04/28/23 10/02/23 History subcutaneous solution (Levemir U-100 Insulin) insulin regular human 100 unit/mL 3 - 9 sliding scale dose subcut 04/28/23 10/02/23 History injection solution (Novolin R PRN PRN Hyperglycemia Regular U-100 Insulin) rivaroxaban 15 mg tablet (Xarelto) 15 mg PO DAILY 04/28/23 10/02/23 History hydralazine 50 mg tablet 100 mg PO TID #90 tabs 05/02/23 10/02/23 Rx acetaminophen 325 mg tablet 650 mg PO Q6H PRN Pain 10/02/23 10/02/23 History ferrous sulfate 325 mg (65 mg 325 mg PO BID 10/02/23 10/02/23 History iron) tablet miconazole nitrate 2 % topical 1 applic topical DAILY PRN Rash 10/02/23 10/02/23 History cream (Antifungal Extra Thick) Allergies Allergy/AdvReac Type Severity Reaction Status Date / Time No Known Allergies Allergy Verified 10/02/23 02:59 Vital Signs Vital Signs - 24 hr 10/01/23 20:25 10/01/23 20:52 10/01/23 22:45 Temperature 97.6 F Pulse Rate 49 L 64 45 L Respiratory Rate 23 H 14 Blood Pressure 146/85 H 164/69 H Pulse Oximetry 98 100 Oxygen Delivery Room Air 10/02/23 00:22 Temperature Pulse Rate 45 L Respiratory Rate 16 Blood Pressure 134/103 H Pulse Oximetry 98 Oxygen Delivery Exam Narrative: General: Awake, not in distress, dehydrated. HEENT: Normocephalic atraumatic Respiratory: Clear to auscultation bilaterally Cardiovascular: Bradycardic, regular rhythm, normal no gallop no edema Gastrointe
[2023-10-02 00:35] LABS: Glucose Point of Care 123 mg/dl (65-105)
[2023-10-02 01:31] LABS: Creatine Kinase 58 U/L (55-170)
--- NOTE | 2023-10-02 02:21 | ADMGEN ---
This patient, Cristofer Bryant, was admitted to IMU Room 205-01 at 0137. Patient/family oriented to hospital policies and general routines including ID bracelet, bed and alarms, visiting hours, pain management, procedures, bathroom and other care routines, personal items, smoking policy, room service/diet, and visiting hours. Information on how to activate the Rapid Response Team has been discussed. Patient/Family are encouraged to report perceived risks to care and to ask questions if they do not understand what they are told or what they should do.
--- NOTE | 2023-10-02 02:21 | PC.NURSE ---
Spoke with Gretchen PONCE from [facility] who states the patient makes his own decisions using yes or no questions and has no legal guardian that she is aware of or showing in his chart. Patient uses a wheelchair for mobility at snf; no glasses, dentures, hearing aids, or oxygen. Patient had flu shot 06/29/23.
[2023-10-02] MEDS: DEXTROSE 5% 1,000 ML 1,000 ML 150 ML IV CONT ×3 (02:42→20:55)
[2023-10-02 03:44] LABS: Basophils Percent Auto 0.2 % (0.2-1.2); Eosinophils Absolute Auto 0.2 K/mm3 (0-0.3); Eosinophils Percent Auto 2.7 % (0-4.4); Hematocrit 30.9 % (42.0-52.0); Hemoglobin 9.1 g/dL (14.0-18.0); Immature Granulocyte Absolute 0.03 K/mm3 (0.00-0.031); Immature Granulocyte Percent A 0.3 % (0-0.5); Lymphocytes Absolute Auto 1.54 K/mm3 (0.9-3.2); Lymphocytes Percent Auto 17.1 % (18.3-44.2); Mean Corpuscular HGB Conc 29.4 g/dl (32-36); Mean Corpuscular Hemoglobin 27.9 pg (26-34); Mean Corpuscular Volume 94.8 fl (80-100); Mean Platelet Volume 12.7 fl (7.4-10.4); Monocytes Absolute Auto 0.6 K/mm3 (0.1-0.6); Neutrophils Absolute Auto 6.5 K/mm3 (1.3-6.7); Neutrophils Percent Auto 72.7 % (45.5-73.1); Platelet Count Result 176 k/mm3 (150-375); Red Blood Count 3.26 M/mm3 (4.6-6.20); Red Cell Distribution Width 14.6 % (11.5-14.5)
[2023-10-02 04:00] LABS: Anion Gap 12 mmol/L (8-16); Blood Urea Nitrogen 106 mg/dL (9-20); Calcium 8.8 mg/dL (8.4-10.2); Carbon Dioxide 23 mmol/L (22-30); Chloride 118 mmol/L (98-107); Estimated CRCL calculation 11 ml/min; Estimated Glomerular Filt Rate 13; Glucose 193 mg/dL (65-110); Potassium 3.8 mmol/L (3.4-5.0); Sodium 153 mmol/L (137-145)
[2023-10-02 04:16] LABS: Troponin I 0.107 ng/mL (0.000-0.034)
[2023-10-02 06:01] LABS: Glucose Point of Care 224 mg/dl (65-105)
[2023-10-02 08:34] LABS: Glucose Point of Care 212 mg/dl (65-105)
[2023-10-02] MEDS: hydrALAZINE HCL 50 MG TABLET 100 MG PO (09:38)
[2023-10-02] MEDS: hydroCHLOROthiazide 25 MG TABLET PO (09:39)
[2023-10-02] MEDS: amLODIPine BESYLATE 5 MG TABLET 10 MG PO (09:39)
[2023-10-02] MEDS: ATORVASTATIN 20 MG TABLET PO (09:39)
[2023-10-02] MEDS: FERROUS SULFATE 325 MG TABLET DR BY MOUTH (09:39)
[2023-10-02] MEDS: INSULIN ASPART (*BKC) 100 UNITS/ML SUB-Q (09:49)
[2023-10-02 09:59] LABS: Anion Gap 8 mmol/L (8-16); Blood Urea Nitrogen 100 mg/dL (9-20); Calcium 8.5 mg/dL (8.4-10.2); Carbon Dioxide 25 mmol/L (22-30); Chloride 116 mmol/L (98-107); Estimated CRCL calculation 11 ml/min; Estimated Glomerular Filt Rate 13; Glucose 223 mg/dL (65-110); Sodium 149 mmol/L (137-145)
[2023-10-02] MEDS: AZITHROMYCIN 500 MG/NS 250 ML 500 MG/250 ML BAG 250 MG IVPB (10:02)
[2023-10-02 12:42] LABS: Glucose Point of Care 154 mg/dl (65-105)
--- NOTE | 2023-10-02 14:44 | PM.CNNEP ---
Assessment and Plan Assessment and plan (1) Acute kidney injury superimposed on CKD: Code(s): N17.9 - Acute kidney failure, unspecified; N18.9 - Chronic kidney disease, unspecified Status: Acute Assessment and Plan: The patient has chronic kidney disease. This is probably due to hypertension and diabetes. His baseline creatinine seems to be around 4. He has acute kidney injury superimposed. Will check renal ultrasound and urine electrolytes. Most likely this is due to dehydration. I suspect that he is not eating and drinking as well as [facility] should [facility] the [facility]. Rhabdomyolysis and obstruction or to other possibilities. I doubt if he has a glomerulonephritis or interstitial nephritis. I agree with continued IVs with hypotonic fluids. Will check renal ultrasound CK and urine lytes. (2) A-fib: Code(s): I48.91 - Unspecified atrial fibrillation Status: Acute Assessment and Plan: Heart rate is not high (3) Hypertension: Code(s): I10 - Essential (primary) hypertension Status: Chronic Assessment and Plan: Blood pressure is a bit high right now. He has been placed back on his blood pressure medications. Will give him a p.r.n. for extra high blood pressure. I am going to hold his hydrochlorothiazide until his numbers improve. (4) Insulin dependent diabetes mellitus: Status: Chronic Assessment and Plan: Management per hospitalists (5) Dementia: Code(s): F03.90 - Unspecified dementia, unspecified severity, without behavioral disturbance, psychotic disturbance, mood disturbance, and anxiety Status: Acute Assessment and Plan: Chronic (6) Acute UTI: Code(s): N39.0 - Urinary tract infection, site not specified Status: Acute Assessment and Plan: Patient is on Zithromax and ceftriaxone (7) Hypoglycemia: Code(s): E16.2 - Hypoglycemia, unspecified Status: Acute Assessment and Plan: Getting supportive care for this (8) Acute hypernatremia: Code(s): E87.0 - Hyperosmolality and hypernatremia Status: Acute Assessment and Plan: Hypotonic fluid and most likely free water deficit History of Present Illness Reason for Consult Consult date: 10/02/23 Chief Complaint Chief complaint: hypoglycemia, uti, acute kidney injury History of Present Illness Narrative: Cristofer is a very pleasant 72-year-old gentleman who has multiple medical problems including dementia, hypertension, diabetes, AFib, and chronic kidney disease. The patient was [facility] by the [facility] because he had a fall and low blood sugar. Details are obtained from the chart. He is unable to give a history. The patient was seen in the emergency room. He was found to have a high sodium, high creatinine, anemia, and pyuria. Exam showed dehydration. He received IV fluids and his BUN, creatinine, and sodium all have come down mildly. Because of the high BUN creatinine renal consultation was requested. Review of Systems Review of Systems: ROS unobtainable: Yes unobtainable due to medical condition PMFSH Past Medical History Medical History A-fib Dementia Hypertension Insulin dependent diabetes mellitus Family History Family History Other Unknown family medical history Social History Social History Smoking status: Unknown if ever smoked Second hand tobacco smoke exposure: No Alcohol intake: unknown Substance use: unknown Substance use type: unknown Spiritual care concerns: No Meds Home Medications and Allergies Home Medications Medication Instructions Recorded Confirmed Type amlodipine 10 mg tablet 10 mg PO DAILY 04/28/23 10/02/23 History atorvastatin 20 mg tablet 20 mg PO DAILY 04/28/23 10/02/23 History clonidine
--- NOTE | 2023-10-02 15:00 | ECG_ITS ---
Measurements Intervals [place] Rate: 50 P: SD: 0 QRS: -60 QRSD: 146 T: 114 QT: 487 QTc: 445 Interpretive Statements SINUS RHYTHM WITH COMPLETE HEART BLOCK JUNCTIONAL ESCAPE RHYTHM RIGHT BUNDLE BRANCH BLOCK LEFT ANTERIOR FASCICULAR BLOCK LEFT VENTRICULAR HYPERTROPHY AND ST-T CHANGE BASELINE ARTIFACT- I, II, III, AVR, AVL, AVF, V1-V3 ABNORMAL ECG COMPARED TO ECG 10/01/2023 23:34:55 NO SIGNIFICANT CHANGES Electronically Signed On 10-04-2023 9:38:20 COMMUNITY PLANNER by Jose Roberto Lindo D.O.
[2023-10-02 16:17] LABS: Creatine Kinase 52 U/L (55-170)
[2023-10-02 16:42] LABS: Glucose Point of Care 200 mg/dl (65-105)
[2023-10-02] MEDS: MEROPENEM 1 GM/NS 100 ML 1 GM/100 ML BAG IVPB (17:42)
[2023-10-02 18:41] LABS: Glucose Point of Care 198 mg/dl (65-105)
[2023-10-02 20:56] LABS: Glucose Point of Care 216 mg/dl (65-105)
--- NOTE | 2023-10-02 21:06 | ECG_ITS ---
Measurements Intervals [place] Rate: 47 P: DC: 0 QRS: 114 QRSD: 157 T: -61 QT: 539 QTc: 477 Interpretive Statements SINUS RHYTHM WITH COMPLETE HEART BLOCK JUNCTIONAL ESCAPE RHYTHM RIGHT BUNDLE BRANCH BLOCK LEFT POSTERIOR FASCICULAR BLOCK ST-T WAVE ABNORMALITY IN INFERIOR LEADS- CONSIDER ISCHEMIA BASELINE WANDER- V4-V6 ABNORMAL ECG COMPARED TO ECG 10/01/2023 23:34:55 LEFT POSTERIOR FASCICULAR BLOCK NOW PRESENT Electronically Signed On 10-03-2023 8:08:02 TELEGRAPH PLANT MAINTAINER by Jose Roberto Lindo D.O.
--- NOTE | 2023-10-02 21:41 | PC.NURSE ---
Per my own interpretation as well as a colleague on the floor, the patient appears to be in complete heart block (type 3). Kelsey SMITH was notified and an EKG was taken and has not yet been read by a assistant center manager. Kelsey to review telemetry data, and pacer pads have been placed proactively on the patient.
--- NOTE | 2023-10-02 21:41 | PC.NURSE ---
POC reviewed with oncall provide for VTE intervention due to pt being NPO pending ST swallow evaluation. Per train caller continue to hold.
[2023-10-03] VITALS (17 sets, daily range): BP systolic 112–188; BP diastolic 62–115; PULSE 43–60; RESP 16–20; TEMP 35.5–36.8; O2SAT 92–100
[2023-10-03 01:09] LABS: Glucose Point of Care 213 mg/dl (65-105)
[2023-10-03] MEDS: AZITHROMYCIN IV 250 MG in SODIUM CHLORIDE 0.9% IV 250 ML IVPB (04:03)
[2023-10-03 04:39] LABS: Basophils Percent Auto 0.2 % (0.2-1.2); Eosinophils Absolute Auto 0.2 K/mm3 (0-0.3); Hematocrit 28.5 % (42.0-52.0); Hemoglobin 8.6 g/dL (14.0-18.0); Immature Granulocyte Absolute 0.04 K/mm3 (0.00-0.031); Immature Granulocyte Percent A 0.8 % (0-0.5); Lymphocytes Absolute Auto 1.46 K/mm3 (0.9-3.2); Lymphocytes Percent Auto 27.8 % (18.3-44.2); Mean Corpuscular HGB Conc 30.2 g/dl (32-36); Mean Corpuscular Hemoglobin 28.1 pg (26-34); Mean Corpuscular Volume 93.1 fl (80-100); Mean Platelet Volume 12.9 fl (7.4-10.4); Monocytes Absolute Auto 0.6 K/mm3 (0.1-0.6); Monocytes Percent Auto 10.5 % (2.6-8.5); Neutrophils Percent Auto 56.7 % (45.5-73.1); Platelet Count Result 144 k/mm3 (150-375); Red Blood Count 3.06 M/mm3 (4.6-6.20); Red Cell Distribution Width 14.1 % (11.5-14.5); White Blood Count 5.3 K/mm3 (4.5-10.0)
[2023-10-03 05:04] LABS: Albumin Level 3.1 g/dL (3.5-5.1); Anion Gap 9 mmol/L (8-16); Blood Urea Nitrogen 88 mg/dL (9-20); Calcium 8.5 mg/dL (8.4-10.2); Carbon Dioxide 24 mmol/L (22-30); Chloride 114 mmol/L (98-107); Estimated CRCL calculation 13 ml/min; Estimated Glomerular Filt Rate 15; Glucose 201 mg/dL (65-110); Magnesium 1.6 mg/dL (1.6-2.3); Phosphorus 4.4 mg/dL (2.5-4.5); Potassium 3.7 mmol/L (3.4-5.0); Sodium 147 mmol/L (137-145)
--- NOTE | 2023-10-03 08:09 | PM.IMPN ---
Progress Note: A&P Assessment and Plan (1) Dementia: Code(s): F03.90 - Unspecified dementia, unspecified severity, without behavioral disturbance, psychotic disturbance, mood disturbance, and anxiety Status: Acute (2) Acute UTI: Code(s): N39.0 - Urinary tract infection, site not specified Status: Acute (3) Acute kidney injury superimposed on CKD: Code(s): N17.9 - Acute kidney failure, unspecified; N18.9 - Chronic kidney disease, unspecified Status: Acute (4) Hypoglycemia: Code(s): E16.2 - Hypoglycemia, unspecified Status: Acute (5) Acute hypernatremia: Code(s): E87.0 - Hyperosmolality and hypernatremia Status: Acute (6) Elevated troponin: Code(s): R79.89 - Other specified abnormal findings of blood chemistry Status: Acute (7) Hypertension: Code(s): I10 - Essential (primary) hypertension Status: Chronic (8) Altered mental status: Qualifiers: Altered mental status type: unspecified Qualified Code(s): R41.82 - Altered mental status, unspecified Code(s): R41.82 - Altered mental status, unspecified Status: Acute (9) Insulin dependent diabetes mellitus: Status: Chronic (10) A-fib: Code(s): I48.91 - Unspecified atrial fibrillation Status: Acute Plan 72-year-old male with history of AFib on Xarelto advanced dementia, chronic anemia, cerebrovascular accident with residual deficits, hypertension, insulin-dependent diabetes mellitus, CKD stage IV, personal history of UTI with E coli. [facility] and apparently has not had any family or contacts for many years. He was reported to be falling at the nursing and on arrival to [facility] ED he presented with hypoglycemia hypernatremia LINDSEY on CKD and UTI. Admitted on 10/02 #Hypoglycemia -this is likely due to his poor oral intake. Pending speech eval. Once eating again encourage oral intake and dietary supplements. -hypoglycemia resolved, resume treatment per diabetes mellitus plan #Insulin-dependent diabetes mellitus -He is on Levemir 10 units q.h.s. and sliding scale usually. -will reinstate his sliding scale since he is on dextrose infusion. When dextrose infusion is discontinued will restart long-acting if he is eating. -continue Accu-Cheks q.6 hours #Hypernatremia -this is due to free water deficit. Admission sodium 155 now 147 -fluids decreased from 150-80 cc of D5 water. Continue this for the rest of the day and discontinue tomorrow if his sodium is continued to be stable. #UTI -in 04/28 the patient presented with UTI as well and treated with meropenem and imipenem. -meropenem started 10/02 -follow-up urine culture. Not currently toxic/septic #community-acquired pneumonia -continue meropenem and azithromycin #Dehydration, failure to thrive, severe protein calorie malnutrition, CVA with residual deficit -he has improved with replacement of free water deficit -pending speech eval. #Hypertension -controlled. -continue home dosing of antihypertensives except clonidine and hydrochlorothiazide #Atrial fibrillation on Xarelto -continue media monitor and Xarelto -has evidence of AV dissociation and this was present last admission in April. -consult Cardiology and appreciate recommendations #LINDSEY on CKD -in April his serum creatinine was about 4. Presented with a serum creatinine of 5.8 and is now down to 4.7 -hold hydrochlorothiazide. Appreciate Nephrology recommendations -unremarkable findings on renal ultrasound except for suspected cystitis FEN: D5W at 80 cc, speech eval pending GI prophylaxis: Avoid for now, has LINDSEY DVT prophylaxis: On Xarelto Lines: Peripheral IV Code Status: Full code Dispo: The patient has no decision maker and no family around. [facility] and for a long time has been a incompetent decision maker and unable to clearly expresses wishes due to dysarthria.
[2023-10-03] MEDS: MEROPENEM 1 GM/NS 100 ML 1 GM/100 ML BAG IVPB ×2 (09:07→18:23)
[2023-10-03] MEDS: DEXTROSE 5% 1,000 ML 1,000 ML 80 ML IV CONT (09:09)
--- NOTE | 2023-10-03 10:59 | PCSTNOTE ---
Please refer to the Bedside Swallow Evaluation in the EMR. Please note, silent aspiration cannot be ruled out at bedside.
[2023-10-03] MEDS: ATORVASTATIN 20 MG TABLET PO (11:38)
[2023-10-03] MEDS: amLODIPine BESYLATE 5 MG TABLET 10 MG PO (11:38)
[2023-10-03] MEDS: hydrALAZINE HCL 50 MG TABLET 100 MG PO ×2 (11:38→18:12)
[2023-10-03] MEDS: FERROUS SULFATE 325 MG TABLET DR BY MOUTH ×2 (11:39→18:12)
[2023-10-03 12:09] LABS: Glucose Point of Care 152 mg/dl (65-105)
[2023-10-03 12:09] LABS: Glucose Point of Care 159 mg/dl (65-105)
--- NOTE | 2023-10-03 12:37 | PM.PNNEP ---
Progress Note: A&P Assessment and Plan (1) Acute kidney injury superimposed on CKD: Code(s): N17.9 - Acute kidney failure, unspecified; N18.9 - Chronic kidney disease, unspecified Status: Acute Assessment and Plan: The patient has chronic kidney disease. This is probably due to hypertension and diabetes. His baseline creatinine seems to be around 4. He has acute kidney injury superimposed on CKD. Urine electrolytes are pending CK is not elevated Renal ultrasound shows smallish kidneys and some cysts. Bladder is thickened. Most likely this is due to dehydration and possible reaction to his UTI.. Will continue iVs with hypotonic fluids. He is on Zithromax and meropenem (2) A-fib: Code(s): I48.91 - Unspecified atrial fibrillation Status: Acute Assessment and Plan: Heart rate is not high. He is a bit bradycardic. Blood pressure is okay. (3) Hypertension: Code(s): I10 - Essential (primary) hypertension Status: Chronic Assessment and Plan: Blood pressure is mostly 140s to 160s. He has been placed back on his blood pressure medications. Will give him a p.r.n. for extra high blood pressure. I am going to hold his hydrochlorothiazide until his numbers improve. (4) Insulin dependent diabetes mellitus: Status: Chronic Assessment and Plan: Management per hospitalists (5) Dementia: Code(s): F03.90 - Unspecified dementia, unspecified severity, without behavioral disturbance, psychotic disturbance, mood disturbance, and anxiety Status: Acute Assessment and Plan: Chronic (6) Acute UTI: Code(s): N39.0 - Urinary tract infection, site not specified Status: Acute Assessment and Plan: Patient is on Zithromax and meropenem (7) Hypoglycemia: Code(s): E16.2 - Hypoglycemia, unspecified Status: Acute Assessment and Plan: Getting supportive care for this (8) Acute hypernatremia: Code(s): E87.0 - Hyperosmolality and hypernatremia Status: Acute Assessment and Plan: Hypotonic fluid and most likely free water deficit Subjective Date/time seen: 10/03/23 12:37 Interval history: Patient is alert. Not very interactive. He moans or says no to most questions. Review of Systems Cardiovascular: Cardiovascular: Reports no additional cardiovascular complaints Respiratory: Respiratory: Reports no additional respiratory complaints Gastrointestinal: Gastrointestinal: Reports no additional gastrointestinal complaints Genitourinary: Genitourinary: Reports no additional male genitourinary complaints Exam Narrative: WDWN in NAD skin no rash head ncat lungs clear bilaterally cor reg no rub or gallop abd BS+ nontender and soft ext no edema. Objective Data Vital Signs Vital Signs: Vital Signs - 24 hr 10/02/23 16:00 10/02/23 14:00 10/02/23 20:00 Temperature 98 F 97.9 F Pulse Rate 50 L 47 L 50 L Respiratory Rate 18 16 Blood Pressure 176/58 H 161/105 H Pulse Oximetry 100 96 10/02/23 16:00 10/02/23 18:00 10/02/23 20:00 Temperature Pulse Rate 47 L 47 L 47 L Respiratory Rate Blood Pressure Pulse Oximetry 10/03/23 00:00 10/02/23 22:00 10/03/23 00:00 Temperature 97.7 F Pulse Rate 60 47 L 44 L Respiratory Rate 16 Blood Pressure 158/98 H Pulse Oximetry 95 10/03/23 02:00 10/03/23 04:39 10/03/23 04:00 Temperature 96 F L Pulse Rate 44 L 43 L 44 L Respiratory Rate 16 Blood Pressure 112/74 Pulse Oximetry 92 10/03/23 06:00 10/03/23 08:40 10/03/23 08:00 Temperature 98.3 F Pulse Rate 47 L 51 L 53 L Respiratory Rate 20 Blood Pressure 143/115 H Pulse Oximetry 100 10/03/23 11:34 Temperature 98.0 F Pulse Rate 45 L Respiratory Rate 20 Blood Pressure 161/63 H Pulse Oximetry 100 Intake/Output Intake/Output: Intake & Output 09/30/23 10/01/23 10/02/23 10/03/23 23:59 23:59 23:59 23:59 Intake Total
--- NOTE | 2023-10-03 13:51 | PM.CNCAR ---
Assessment and Plan Assessment and plan (1) AV dissociation: Code(s): I45.89 - Other specified conduction disorders Status: Acute Assessment and Plan: AV dissociation appears to been documented as far records April 2023. There is a diagnosis in his history of atrial fibrillation, however, I do not see documented atrial fibrillation by ECG or other corroborating evidence yet he is on systemic anticoagulation with Xarelto 15 mg daily presumably for embolic stroke risk reduction in this regard. CT head reveals evidence of old multiple infarcts nonetheless but nothing acute. Patient is hemodynamically stable. He is not able to report symptoms due to his dementia and inability to make decisions. 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 From this narrow perspective he would meet criteria for pacemaker implantation. However, given the fact that he is unable to consent due to his dementia and inability to make decisions for himself without evidence for and as yet identified surrogate or documentation of power of patent prosecution attorney at this juncture we are unable to proceed with elective pacemaker implantation. Furthermore, it would seem inappropriate to do so given patient's multiple comorbidities, dementia particularly in light of the fact he may very likely require initiation of hemodialysis in the very near future which will complicate his medical management in general. Additional concern also surrounds his ability to cooperate if pacemaker implantation were to proceed and not manipulate the pocket to increased risk for infection necessitating explantation which could be life-threatening as well. This is a complicated clinical circumstance with limited options at this point. My recommendation is to obtain an ethics committee consultation as well as ongoing attempts to contact senior living for power of patent prosecution attorney, surrogate decision maker and or plans for obtaining power of patent prosecution attorney or gomez of state status. Care coordination has been consulted. Discussed at great length with hospitalist service in this regard. Discussed with hospitalist service if need for pacemaker implantation determined on an emergent basis this may be a reasonable plan it while highly concerning is not an emergency as he remains quite stable hemodynamically. In the interval, must avoid any and all AV isi blocking agents. Atropine at bedside reasonable if he becomes more bradycardic and or symptomatic with hypotension. Patient is at high risk for complications with or without pacemaker implantation with poor prognosis. Nonetheless, AV dissociation has not resolved with discontinuation of clonidine, improvement in hyponatremia, treatment of UTI with IV antibiotics or correction of hypoglycemia. With regards to history of atrial fibrillation, I do not have documentation therefore cannot just 5 based on this history continuation of systemic anticoagulation recommended. Furthermore, I would discontinue rivaroxaban in favor of Eliquis 5 mg twice daily (age<80, wt >60kg, but Cr>1.5). Discussed at great length care coordination, hospitalist service. I spent 87 minutes in the care of this patient including interview with patient, examination at bedside, discussion with additional care providers, chart review, medical decision-making, and documentation pertaining to the care of this patient alone. (2) Acute kidney injury superimposed on CKD: Code(s): N17.9 - Acute kidney failure, unspecified; N18.9 - Chronic kidney disease, unspecified Status: Acute Assessment and Plan: Patient high risk for further decline in renal function and need for hemodialysis increasing general bleeding risk and multiple complications including infection. Question his ability to cooperate with hemodialysis. Furthermore, there is no consent available from a surrogate decision maker or other power of patent prosecution attorney of which we are aware
[2023-10-03 13:55] LABS: Creatinine Urine 53.5 mg/dL; Urea Random Urine 489 MG/DL
[2023-10-03 14:07] LABS: Sodium Urine Random 102 meq/L
[2023-10-03 14:19] LABS: Total Protein Urine Random > 200 mg/dL
[2023-10-03 16:28] LABS: Glucose Point of Care 164 mg/dl (65-105)
[2023-10-03] MEDS: RIVAROXABAN 15 MG TABLET PO (18:12)
--- NOTE | 2023-10-03 20:13 | PC.NURSE ---
Latha. Dr. Plasencia / This Nurse 12 Lead ECG for dysthymia. Completed. Order entered late due to patient care
[2023-10-03 21:16] LABS: Glucose Point of Care 186 mg/dl (65-105)
[2023-10-04] VITALS (18 sets, daily range): BP systolic 133–189; BP diastolic 65–72; PULSE 41–59; RESP 18–20; TEMP 36.1–36.9; O2SAT 99–100; BMI 21.7
[2023-10-04] MEDS: DEXTROSE 5% 1,000 ML 1,000 ML 80 ML IV CONT ×2 (01:05→05:57)
[2023-10-04 05:14] LABS: Basophils Percent Auto 0.4 % (0.2-1.2); Eosinophils Absolute Auto 0.2 K/mm3 (0-0.3); Eosinophils Percent Auto 4.3 % (0-4.4); Hematocrit 29.8 % (42.0-52.0); Hemoglobin 9.1 g/dL (14.0-18.0); Immature Granulocyte Absolute 0.02 K/mm3 (0.00-0.031); Immature Granulocyte Percent A 0.4 % (0-0.5); Lymphocytes Absolute Auto 1.54 K/mm3 (0.9-3.2); Lymphocytes Percent Auto 27.8 % (18.3-44.2); Mean Corpuscular HGB Conc 30.5 g/dl (32-36); Mean Corpuscular Hemoglobin 28.4 pg (26-34); Mean Corpuscular Volume 93.1 fl (80-100); Mean Platelet Volume 12.7 fl (7.4-10.4); Monocytes Absolute Auto 0.7 K/mm3 (0.1-0.6); Neutrophils Percent Auto 54.1 % (45.5-73.1); Platelet Count Result 148 k/mm3 (150-375); Red Cell Distribution Width 14.1 % (11.5-14.5); White Blood Count 5.5 K/mm3 (4.5-10.0)
[2023-10-04 05:25] LABS: Albumin Level 2.9 g/dL (3.5-5.1); Anion Gap 9 mmol/L (8-16); Blood Urea Nitrogen 79 mg/dL (9-20); Calcium 8.4 mg/dL (8.4-10.2); Carbon Dioxide 22 mmol/L (22-30); Chloride 114 mmol/L (98-107); Estimated CRCL calculation 14 ml/min; Estimated Glomerular Filt Rate 17; Glucose 124 mg/dL (65-110); Magnesium 1.5 mg/dL (1.6-2.3); Phosphorus 4.5 mg/dL (2.5-4.5); Potassium 3.7 mmol/L (3.4-5.0); Sodium 145 mmol/L (137-145)
[2023-10-04 05:38] LABS: Percent Iron Saturation 20 % (20-50)
[2023-10-04] MEDS: AZITHROMYCIN IV 250 MG in SODIUM CHLORIDE 0.9% IV 250 ML IVPB (05:58)
[2023-10-04 07:57] LABS: Glucose Point of Care 119 mg/dl (65-105)
--- NOTE | 2023-10-04 08:21 | PM.IMPN ---
Progress Note: A&P Assessment and Plan (1) Dementia: Code(s): F03.90 - Unspecified dementia, unspecified severity, without behavioral disturbance, psychotic disturbance, mood disturbance, and anxiety Status: Acute (2) Acute UTI: Code(s): N39.0 - Urinary tract infection, site not specified Status: Acute (3) Acute kidney injury superimposed on CKD: Code(s): N17.9 - Acute kidney failure, unspecified; N18.9 - Chronic kidney disease, unspecified Status: Acute (4) Hypoglycemia: Code(s): E16.2 - Hypoglycemia, unspecified Status: Acute (5) Acute hypernatremia: Code(s): E87.0 - Hyperosmolality and hypernatremia Status: Acute (6) Elevated troponin: Code(s): R79.89 - Other specified abnormal findings of blood chemistry Status: Acute (7) Hypertension: Code(s): I10 - Essential (primary) hypertension Status: Chronic (8) Altered mental status: Qualifiers: Altered mental status type: unspecified Qualified Code(s): R41.82 - Altered mental status, unspecified Code(s): R41.82 - Altered mental status, unspecified Status: Acute (9) Insulin dependent diabetes mellitus: Status: Chronic (10) A-fib: Code(s): I48.91 - Unspecified atrial fibrillation Status: Acute Plan 72-year-old male with history of AFib on Xarelto advanced dementia, chronic anemia, cerebrovascular accident with residual deficits, hypertension, insulin-dependent diabetes mellitus, CKD stage IV, personal history of UTI with E coli. Patient is a permanent resident of long term and apparently has not had any family or contacts for many years. He was reported to be falling at the nursing and on arrival to [facility] he presented with hypoglycemia hypernatremia LINDSEY on CKD and UTI. Admitted on 10/02 #Hypoglycemia -this is likely due to his poor oral intake. Speech eval completed, continue pureed thickened liquids. Encourage oral intake and dietary supplements -hypoglycemia resolved, resume treatment per diabetes mellitus plan #Insulin-dependent diabetes mellitus -He is on Levemir 10 units q.h.s. and sliding scale at home -on 10/04 his blood sugars are now acceptable. Discontinue dextrose infusion. Monitor blood sugars throughout the day. Restart insulin if needed -continue Accu-Cheks q.6 hours #Hypernatremia -this is due to free water deficit. Admission sodium 155 now 145 on 10/04 -resolved. Discontinue D5 water on 10/04. Continue daily BMP check #UTI -in 04/28 the patient presented with UTI as well and treated with meropenem and imipenem. -meropenem started 10/02 -follow-up urine culture. Not currently toxic/septic #thrush -on 10/04 start fluconazole 200 mg p.o. q.day #community-acquired pneumonia -continue meropenem and azithromycin -on 10/04 discontinue azithromycin. Fluconazole was started and we need to avoid further prolonging the QTC #Dehydration, failure to thrive, severe protein calorie malnutrition, CVA with residual deficit -he has improved with replacement of free water deficit -speech eval completed. Encourage oral intake. #Hypertension -continue home dosing of antihypertensives except clonidine and hydrochlorothiazide -he is currently on max dose hydralazine and losartan. SBP is running in the 180s today on 10/04. Will speak to Cardiology on next best that. 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 -unclear if he actually has atrial fibrillation but we do not have documentation prior to April so we will continue treating as such. -consult Cardiology and appreciate recommendations -has indication for pacemaker but it is not emergent. Atropine p.r.n. if he is symptom
[2023-10-04] MEDS: hydrALAZINE HCL 50 MG TABLET 100 MG PO ×3 (08:32→17:57)
[2023-10-04] MEDS: amLODIPine BESYLATE 5 MG TABLET 10 MG PO (08:33)
[2023-10-04] MEDS: FERROUS SULFATE 325 MG TABLET DR BY MOUTH ×2 (08:33→17:57)
[2023-10-04] MEDS: ATORVASTATIN 20 MG TABLET PO (08:33)
[2023-10-04] MEDS: MEROPENEM 1 GM/NS 100 ML 1 GM/100 ML BAG IVPB ×2 (08:33→17:57)
[2023-10-04] MEDS: MAGNESIUM SULF 1 GM/D5W 100 ML 1 GM/100 ML BAG IVPB (08:48)
[2023-10-04] MEDS: FLUCONAZOLE 200 MG/NACL 100 ML 200 MG/100 ML BAG 100 MG IVPB (10:02)
[2023-10-04 10:42] LABS: Iron 36 ug/dL (49-181)
--- NOTE | 2023-10-04 11:02 | PM.PNNEP ---
Progress Note: A&P Assessment and Plan (1) LINDSEY (acute kidney injury): Code(s): N17.9 - Acute kidney failure, unspecified Status: Acute Assessment and Plan: slow improvement noted unclear what baseline creatinine normally runs only old records available are from March 2022 -- creatinine at that time was 3.06mg/dl on hospital discharge from [facility] in April 2023, creatinine was 3.9mg/dl (possible new baseline?) evaluation to date: renal ultrasound consistent with CKD urine electrolytes non-prerenal CPK normal UA indicative of infection (see #3) nephrotic range proteinuria suspect due ti volume depletion and UTI follow trend of labs with and UOP (2) Chronic kidney disease, stage IV (severe): Code(s): N18.4 - Chronic kidney disease, stage 4 (severe) Status: Chronic Assessment and Plan: last creatinine available is from April 2023 - 3.9mg/dl presumably due to diabetes, hypertension, UTIs, and age-related change (3) Hypernatremia: Code(s): E87.0 - Hyperosmolality and hypernatremia Status: Acute Assessment and Plan: due to free water deficit and volume depletion improvement noted with D5W IVFs suspect this will be a chronic issue/problem given his suboptimal food/fluid intake probably need a G-tube for adequate nutritional support (4) Acute UTI: Code(s): N39.0 - Urinary tract infection, site not specified Status: Acute Assessment and Plan: urine culture with E.coli on antibitoics (5) Hypertension: Code(s): I10 - Essential (primary) hypertension Status: Chronic Assessment and Plan: poor control on admission resumed on home medications (minus HCTZ) PRN medications intiated follow trend of hemodynamics . (6) Insulin dependent diabetes mellitus: Status: Chronic Assessment and Plan: follow accu-cheks glycemic control per hospitalists I agree with Dr. Plasencia that without any boat person to make decisions for the patient, I suspect he will have recurrent hospitalizations for the same issue regarding electrolyte abnormalities and worsening renal dysfunction and more concerning is the fact that there will probably come a point where he may require renal replacement therapy/dialysis due to his advanced kidney disease. Given his underlying dementia and neuro-cognitive issues, he is a poor candidate for dialysis. Will continue to follow. Subjective Date/time seen: 10/04/23 11:02 Interval history: Follow-up for acute kidney injury/acute renal failure on chronic kidney disease and hypernatremia. Chart reviewed -- assuming care from Dr. Zhang; sodium and renal function appear to be doing better at this time; mentation seems about the same as when I took care of him on his previous hospitalization here at [facility]. Exam Narrative: General: elderly AA male who appears in NAD Heart: normal S1 and S2; no rub Lungs: clear to auscultation Abdomen: soft, nontender, nondistended, positive bowel sounds Extremities: no cyanosis or clubbing; no edema Skin: warm and dry Objective Data Vital Signs Vital Signs: Vital Signs Temp Pulse Resp BP Pulse Ox O2 Del Method 10/04/23 11:00 97.2 F L 45 L 20 184/65 H 100 10/04/23 10:00 45 L 10/04/23 08:00 41 L 10/04/23 07:39 98.2 F 52 L 18 189/69 H 99 10/04/23 06:12 98.4 F 43 L 18 169/70 H 100 10/04/23 06:00 45 L 10/04/23 04:00 49 L 10/04/23 02:00 55 L 10/04/23 00:00 50 L 10/03/23 22:00 51 L 10/03/23 20:00 45 L 10/04/23 01:09 98.5 F 48 L 18 133/70 100 10/03/23 20:26 97.7 F 49 L 18 172/62 H 98 10/03/23 18:00 51 L 10/03/23 16:00 43 L 10/03/23 16:00 Room Air 10/03/23 15:31 98.2 F 48 L 18 188/63 H 100 Intake/Output Intake/Output: Intake & Output 10/01/23 10/02/23 10/03/23 10/04/23 23:59 23:59
--- NOTE | 2023-10-04 11:02 | P.PNNP_ITS ---
Progress Note: A&P Assessment and Plan (1) LINDSEY (acute kidney injury): Code(s): N17.9 - Acute kidney failure, unspecified Status: Acute Assessment and Plan: * slow improvement noted * unclear what baseline creatinine normally runs * only old records available are from March 2022 -- creatinine at that time was 3.06mg/dl * on hospital discharge from [facility] in April 2023, creatinine was 3.9mg/dl (possible new baseline?) * evaluation to date: * renal ultrasound consistent with CKD * urine electrolytes non-prerenal * CPK normal * UA indicative of infection (see #3) * nephrotic range proteinuria * suspect due ti volume depletion and UTI * follow trend of labs with and UOP (2) Chronic kidney disease, stage IV (severe): Code(s): N18.4 - Chronic kidney disease, stage 4 (severe) Status: Chronic Assessment and Plan: * last creatinine available is from April 2023 - 3.9mg/dl * presumably due to diabetes, hypertension, UTIs, and age-related change (3) Hypernatremia: Code(s): E87.0 - Hyperosmolality and hypernatremia Status: Acute Assessment and Plan: * due to free water deficit and volume depletion * improvement noted with D5W IVFs * suspect this will be a chronic issue/problem given his suboptimal food/fluid intake * probably need a G-tube for adequate nutritional support (4) Acute UTI: Code(s): N39.0 - Urinary tract infection, site not specified Status: Acute Assessment and Plan: * urine culture with E.coli * on antibitoics (5) Hypertension: Code(s): I10 - Essential (primary) hypertension Status: Chronic Assessment and Plan: * poor control on admission * resumed on home medications (minus HCTZ) * PRN medications intiated * follow trend of hemodynamics . (6) Insulin dependent diabetes mellitus: Status: Chronic Assessment and Plan: * follow accu-cheks * glycemic control per hospitalists I agree with Dr. Plasencia that without any manager contact to make decisions for the patient, I suspect he will have recurrent hospitalizations for the same issue regarding electrolyte abnormalities and worsening renal dysfunction and more concerning is the fact that there will probably come a point where he may require renal replacement therapy/dialysis due to his advanced kidney disease. Given his underlying dementia and neuro-cognitive issues, he is a poor candidate for dialysis. Will continue to follow. Subjective Date/time seen: 10/04/23 11:02 Interval history: Follow-up for acute kidney injury/acute renal failure on chronic kidney disease and hypernatremia. Chart reviewed -- assuming care from Dr. Zhang; sodium and renal function appear to be doing better at this time; mentation seems about the same as when I took care of him on his previous hospitalization here at [facility]. Exam Narrative: General: elderly AA male who appears in NAD Heart: normal S1 and S2; no rub Lungs: clear to auscultation Abdomen: soft, nontender, nondistended, positive bowel sounds Extremities: no cyanosis or clubbing; no edema Skin: warm and dry Objective Data Vital Signs Vital Signs: Vital Signs Temp Pulse Resp BP Pulse Ox O2 Del Method 10/04/23 11:00 97.2 F L 45 L 20 184/65 H 100 10/04/23 10:00 45 L 10/04/23 08:00 41 L
[2023-10-04 12:53] LABS: Glucose Point of Care 157 mg/dl (65-105)
--- NOTE | 2023-10-04 13:23 | PM.PNCARD ---
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 There is a diagnosis in his history of atrial fibrillation, however, I do not see documented atrial fibrillation by ECG or other corroborating evidence yet he is on systemic anticoagulation with Xarelto 15 mg daily presumably for embolic stroke risk reduction in this regard. CT head reveals evidence of old multiple infarcts nonetheless but nothing acute. Patient is hemodynamically stable. He is not able to report symptoms due to his dementia and inability to make decisions. 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 From this narrow perspective he would meet criteria for pacemaker implantation. However, given the fact that he is unable to consent due to his dementia and inability to make decisions for himself without evidence for and as yet identified surrogate or documentation of power of well driller at this juncture we are unable to proceed with elective pacemaker implantation. Furthermore, it would seem inappropriate to do so given patient's multiple comorbidities, dementia particularly in light of the fact he may very likely require initiation of hemodialysis in the very near future which will complicate his medical management in general. Additional concern also surrounds his ability to cooperate if pacemaker implantation were to proceed and not manipulate the pocket to increased risk for infection necessitating explantation which could be life-threatening as well. This is a complicated clinical circumstance with limited options at this point. My recommendation is to obtain an ethics committee consultation as well as ongoing attempts to contact [facility] for power of well driller, surrogate decision maker and or plans for obtaining power of well driller or gomez of state status. Care coordination has been consulted. Discussed at great length with hospitalist service in this regard. Discussed with hospitalist service if need for pacemaker implantation determined on an emergent basis this may be a reasonable plan it while highly concerning is not an emergency as he remains quite stable hemodynamically. In the interval, must avoid any and all AV isi blocking agents. Atropine at bedside reasonable if he becomes more bradycardic and or symptomatic with hypotension. Patient is at high risk for complications with or without pacemaker implantation with poor prognosis. Nonetheless, AV dissociation has not resolved with discontinuation of clonidine, improvement in hyponatremia, treatment of UTI with IV antibiotics or correction of hypoglycemia. With regards to history of atrial fibrillation, I do not have documentation therefore cannot just 5 based on this history continuation of systemic anticoagulation recommended. Furthermore, I would discontinue rivaroxaban in favor of Eliquis 5 mg twice daily (age<80, wt >60kg, but Cr>1.5). Discussed at great length care coordination, hospitalist service. Unfortunately, clinical circumstances have not changed. In general, patient meets criteria for elective pacemaker implantation given high risk complications including if further progression with complete heart block, severe bradycardia unable to support life and/or resulting in hypoperfusion. However, patient is hemodynamically stable and asymptomatic at this time. Therefore, justification for pacemaker implantation on an emergent basis is not relevant or accurate. Complication arises due to the lack of power of well driller, surrogate decision maker, or gomez of state status. The patient is not capable of consenting or making decisions in this regard. Therefore, elective procedures as we have been informed cannot be made on his behalf by his treating medical technical writer.
[2023-10-04 16:42] LABS: Glucose Point of Care 178 mg/dl (65-105)
[2023-10-04] MEDS: APIXABAN 5 MG TABLET PO (17:57)
[2023-10-04 20:50] LABS: Glucose Point of Care 159 mg/dl (65-105)
[2023-10-05] VITALS (18 sets, daily range): BP systolic 122–175; BP diastolic 59–82; PULSE 42–87; RESP 16–20; TEMP 36.4–37.2; O2SAT 94–100
[2023-10-05 05:17] LABS: Basophils Percent Auto 0.3 % (0.2-1.2); Eosinophils Absolute Auto 0.3 K/mm3 (0-0.3); Eosinophils Percent Auto 4.7 % (0-4.4); Hematocrit 29.7 % (42.0-52.0); Hemoglobin 9.2 g/dL (14.0-18.0); Immature Granulocyte Absolute 0.02 K/mm3 (0.00-0.031); Immature Granulocyte Percent A 0.3 % (0-0.5); Immature Platelet Fraction Pct 7.9 % (0.9-11.2); Lymphocytes Absolute Auto 1.55 K/mm3 (0.9-3.2); Lymphocytes Percent Auto 26.1 % (18.3-44.2); Mean Corpuscular Volume 90.3 fl (80-100); Mean Platelet Volume 13.1 fl (7.4-10.4); Monocytes Absolute Auto 0.8 K/mm3 (0.1-0.6); Monocytes Percent Auto 13.1 % (2.6-8.5); Neutrophils Absolute Auto 3.3 K/mm3 (1.3-6.7); Neutrophils Percent Auto 55.5 % (45.5-73.1); Platelet Count Result 141 k/mm3 (150-375); Red Blood Count 3.29 M/mm3 (4.6-6.20); Red Cell Distribution Width 14.1 % (11.5-14.5)
[2023-10-05 05:26] LABS: Anion Gap 9 mmol/L (8-16); Blood Urea Nitrogen 73 mg/dL (9-20); Calcium 8.4 mg/dL (8.4-10.2); Carbon Dioxide 22 mmol/L (22-30); Chloride 115 mmol/L (98-107); Estimated CRCL calculation 15 ml/min; Estimated Glomerular Filt Rate 18; Glucose 106 mg/dL (65-110); Magnesium 1.9 mg/dL (1.6-2.3); Potassium 3.9 mmol/L (3.4-5.0); Sodium 146 mmol/L (137-145)
[2023-10-05 07:56] LABS: Glucose Point of Care 102 mg/dl (65-105)
[2023-10-05] MEDS: APIXABAN 5 MG TABLET PO ×2 (08:43→20:12)
[2023-10-05] MEDS: ATORVASTATIN 20 MG TABLET PO (08:43)
[2023-10-05] MEDS: hydrALAZINE HCL 50 MG TABLET 100 MG PO ×3 (08:43→17:29)
[2023-10-05] MEDS: FERROUS SULFATE 325 MG TABLET DR BY MOUTH ×2 (08:43→17:28)
[2023-10-05] MEDS: amLODIPine BESYLATE 5 MG TABLET 10 MG PO (08:44)
[2023-10-05] MEDS: FLUCONAZOLE 100 MG TABLET PO (08:44)
[2023-10-05] MEDS: MEROPENEM 1 GM/NS 100 ML 1 GM/100 ML BAG IVPB ×2 (08:44→17:28)
--- NOTE | 2023-10-05 10:31 | P.PNNP_ITS ---
Progress Note: A&P Assessment and Plan (1) LINDSEY (acute kidney injury): Code(s): N17.9 - Acute kidney failure, unspecified Status: Acute Assessment and Plan: * slow improvement noted * unclear what baseline creatinine normally runs * previous records available are from March 2022 -- creatinine at that time was 3.06mg/dl * on hospital discharge from [facility] in April 2023, creatinine was 3.9mg/dl (possible new baseline?) * evaluation to date: * renal ultrasound consistent with CKD * urine electrolytes non-prerenal * CPK normal * UA indicative of infection (see #4) * nephrotic range proteinuria * suspect due ti volume depletion and UTI * follow trend of labs with and UOP (2) Chronic kidney disease, stage IV (severe): Code(s): N18.4 - Chronic kidney disease, stage 4 (severe) Status: Chronic Assessment and Plan: * last creatinine available is from April 2023 - 3.9mg/dl * presumably due to diabetes, hypertension, UTIs, and age-related change (3) Hypernatremia: Code(s): E87.0 - Hyperosmolality and hypernatremia Status: Acute Assessment and Plan: * better but creeping up again * due to free water deficit and volume depletion * improvement noted with D5W IVFs * suspect this will be a chronic issue/problem given his suboptimal food/fluid intake * probably need a G-tube for adequate nutritional support (4) Acute UTI: Code(s): N39.0 - Urinary tract infection, site not specified Status: Acute Assessment and Plan: * urine culture with E.coli * on antibitoics (5) Hypertension: Code(s): I10 - Essential (primary) hypertension Status: Chronic Assessment and Plan: * poor control on admission * resumed on home medications (minus HCTZ) * PRN medications intiated * follow trend of hemodynamics . (6) Insulin dependent diabetes mellitus: Status: Chronic Assessment and Plan: * follow accu-cheks * glycemic control per hospitalists Will continue to follow. Subjective Date/time seen: 10/05/23 10:31 Interval history: Follow-up for acute kidney injury/acute renal failure on chronic kidney disease and hypernatremia. No real significant change since last seen; sodium up a bit since D5W IVFs were discontinued but renal function a bit better; no apparent issues/events overnight or earlier this morning. Exam Narrative: General: elderly AA male who appears in NAD Heart: normal S1 and S2; no rub Lungs: clear to auscultation Abdomen: soft, nontender, nondistended, positive bowel sounds Extremities: no cyanosis or clubbing; no edema Skin: warm and intact Objective Data Vital Signs Vital Signs: Vital Signs Temp Pulse Resp BP Pulse Ox O2 Del Method 10/05/23 10:00 98.1 F 87 20 122/59 L 100 10/05/23 08:00 53 L 20 100 Room Air 10/05/23 08:00 53 L 10/05/23 07:43 97.7 F 50 L 20 157/61 H 100 10/05/23 05:36 46 L 10/05/23 04:06 97.6 F 42 L 16 172/68 H 97 10/05/23 03:18 45 L 20 98 Room Air 10/05/23 03:18 45 L 10/05/23 02:00 46 L 10/05/23 00:00 51 L 20 98 Room Air 10/05/23 00:00 51 L 10/05/23 00:05 97.8 F 59 L 20 148/82 H 98 10/04/23 21:14 46 L 10/04/23 20:00 50 L 20 100 Nelly
--- NOTE | 2023-10-05 10:31 | PM.PNNEP ---
Progress Note: A&P Assessment and Plan (1) LINDSEY (acute kidney injury): Code(s): N17.9 - Acute kidney failure, unspecified Status: Acute Assessment and Plan: slow improvement noted unclear what baseline creatinine normally runs previous records available are from March 2022 -- creatinine at that time was 3.06mg/dl on hospital discharge from [facility] in April 2023, creatinine was 3.9mg/dl (possible new baseline?) evaluation to date: renal ultrasound consistent with CKD urine electrolytes non-prerenal CPK normal UA indicative of infection (see #4) nephrotic range proteinuria suspect due ti volume depletion and UTI follow trend of labs with and UOP (2) Chronic kidney disease, stage IV (severe): Code(s): N18.4 - Chronic kidney disease, stage 4 (severe) Status: Chronic Assessment and Plan: last creatinine available is from April 2023 - 3.9mg/dl presumably due to diabetes, hypertension, UTIs, and age-related change (3) Hypernatremia: Code(s): E87.0 - Hyperosmolality and hypernatremia Status: Acute Assessment and Plan: better but creeping up again due to free water deficit and volume depletion improvement noted with D5W IVFs suspect this will be a chronic issue/problem given his suboptimal food/fluid intake probably need a G-tube for adequate nutritional support (4) Acute UTI: Code(s): N39.0 - Urinary tract infection, site not specified Status: Acute Assessment and Plan: urine culture with E.coli on antibitoics (5) Hypertension: Code(s): I10 - Essential (primary) hypertension Status: Chronic Assessment and Plan: poor control on admission resumed on home medications (minus HCTZ) PRN medications intiated follow trend of hemodynamics . (6) Insulin dependent diabetes mellitus: Status: Chronic Assessment and Plan: follow accu-cheks glycemic control per hospitalists Will continue to follow. Subjective Date/time seen: 10/05/23 10:31 Interval history: Follow-up for acute kidney injury/acute renal failure on chronic kidney disease and hypernatremia. No real significant change since last seen; sodium up a bit since D5W IVFs were discontinued but renal function a bit better; no apparent issues/events overnight or earlier this morning. Exam Narrative: General: elderly AA male who appears in NAD Heart: normal S1 and S2; no rub Lungs: clear to auscultation Abdomen: soft, nontender, nondistended, positive bowel sounds Extremities: no cyanosis or clubbing; no edema Skin: warm and intact Objective Data Vital Signs Vital Signs: Vital Signs Temp Pulse Resp BP Pulse Ox O2 Del Method 10/05/23 10:00 98.1 F 87 20 122/59 L 100 10/05/23 08:00 53 L 20 100 Room Air 10/05/23 08:00 53 L 10/05/23 07:43 97.7 F 50 L 20 157/61 H 100 10/05/23 05:36 46 L 10/05/23 04:06 97.6 F 42 L 16 172/68 H 97 10/05/23 03:18 45 L 20 98 Room Air 10/05/23 03:18 45 L 10/05/23 02:00 46 L 10/05/23 00:00 51 L 20 98 Room Air 10/05/23 00:00 51 L 10/05/23 00:05 97.8 F 59 L 20 148/82 H 98 10/04/23 21:14 46 L 10/04/23 20:00 50 L 20 100 Room Air 10/04/23 20:00 50 L 10/04/23 20:10 97.9 F 50 L 20 168/66 H 100 10/04/23 18:00 50 L 10/04/23 16:00 58 L 10/04/23 16:24 97 F L 59 L 20 172/72 H 100 10/04/23 14:00 43 L Intake/Output Intake/Output: Intake & Output 10/02/23 10/03/23 10/04/23 10/05/23 23:59 23:59 23:59 23:59 Intake Total 2710 2690 2660 480 Output Total 550 480 Balance 2710 2140 2180 480 Meds/Results Medications: Active Medications Generic Name Dose Route Start Last Admin Trade Name Freq PRN Reason Stop Dose Admin Amlodipine Besylate 10 mg 10/02/23 09:00 10/05/23 08:44 Amlodipine Besylate 5 Mg Tablet PO 10 mg DAILY [facility] Adm
[2023-10-05 11:55] LABS: Glucose Point of Care 151 mg/dl (65-105)
--- NOTE | 2023-10-05 12:58 | PM.IMPN ---
Progress Note: A&P Assessment and Plan (1) Dementia: Code(s): F03.90 - Unspecified dementia, unspecified severity, without behavioral disturbance, psychotic disturbance, mood disturbance, and anxiety Status: Acute (2) Acute UTI: Code(s): N39.0 - Urinary tract infection, site not specified Status: Acute (3) Acute kidney injury superimposed on CKD: Code(s): N17.9 - Acute kidney failure, unspecified; N18.9 - Chronic kidney disease, unspecified Status: Acute (4) Hypoglycemia: Code(s): E16.2 - Hypoglycemia, unspecified Status: Acute (5) Acute hypernatremia: Code(s): E87.0 - Hyperosmolality and hypernatremia Status: Acute (6) Elevated troponin: Code(s): R79.89 - Other specified abnormal findings of blood chemistry Status: Acute (7) Hypertension: Code(s): I10 - Essential (primary) hypertension Status: Chronic (8) Altered mental status: Qualifiers: Altered mental status type: unspecified Qualified Code(s): R41.82 - Altered mental status, unspecified Code(s): R41.82 - Altered mental status, unspecified Status: Acute (9) Insulin dependent diabetes mellitus: Status: Chronic (10) A-fib: Code(s): I48.91 - Unspecified atrial fibrillation Status: Acute Plan 72-year-old male with history of AFib on Xarelto advanced dementia, chronic anemia, cerebrovascular accident with residual deficits, hypertension, insulin-dependent diabetes mellitus, CKD stage IV, personal history of UTI with E coli. Patient is a permanent resident of [facility] and apparently has not had any family or contacts for many years. He was reported to be falling at the nursing and on arrival to [place] ED he presented with hypoglycemia hypernatremia LINDSEY on CKD and UTI. Admitted on 10/02 #Hypoglycemia -this is likely due to his poor oral intake. Speech eval completed, continue pureed thickened liquids. Encourage oral intake and dietary supplements -hypoglycemia resolved, resume treatment per diabetes mellitus plan #Insulin-dependent diabetes mellitus -He is on Levemir 10 units q.h.s. and sliding scale at home -on 10/04 his blood sugars are now acceptable. Discontinue dextrose infusion. Monitor blood sugars throughout the day. Restart insulin if needed -continue Accu-Cheks q.6 hours #Hypernatremia -this is due to free water deficit. Admission sodium 155 now 145 on 10/04 -resolved. Discontinue D5 water on 10/04. Continue daily BMP check #UTI -in 04/28 the patient presented with UTI as well and treated with meropenem and imipenem. -meropenem started 10/02 -follow-up urine culture. Not currently toxic/septic #thrush -on 10/04 start fluconazole 200 mg p.o. q.day #community-acquired pneumonia -continue meropenem and azithromycin -on 10/04 discontinue azithromycin. Fluconazole was started and we need to avoid further prolonging the QTC #Dehydration, failure to thrive, severe protein calorie malnutrition, CVA with residual deficit -he has improved with replacement of free water deficit -speech eval completed. Encourage oral intake. #Hypertension -continue home dosing of antihypertensives except clonidine and hydrochlorothiazide -he is currently on max dose hydralazine and losartan. SBP is running in the 180s today on 10/04. Will speak to Cardiology on next best that. 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 -unclear if he actually has atrial fibrillation but we do not have documentation prior to April so we will continue treating as such. -consult Cardiology and appreciate recommendations -has indication for pacemaker but it is not emergent. Atropine p.r.n. if he is symptom
[2023-10-05 16:13] LABS: Glucose Point of Care 211 mg/dl (65-105)
[2023-10-05 20:00] LABS: Glucose Point of Care 160 mg/dl (65-105)
[2023-10-06] VITALS (16 sets, daily range): BP systolic 170–184; BP diastolic 56–73; PULSE 42–73; RESP 18–20; TEMP 36.1–36.8; O2SAT 99–100
[2023-10-06 05:00] LABS: Basophils Percent Auto 0.3 % (0.2-1.2); Eosinophils Absolute Auto 0.3 K/mm3 (0-0.3); Eosinophils Percent Auto 5.3 % (0-4.4); Hematocrit 29.8 % (42.0-52.0); Hemoglobin 9.2 g/dL (14.0-18.0); Immature Granulocyte Absolute 0.01 K/mm3 (0.00-0.031); Immature Granulocyte Percent A 0.2 % (0-0.5); Lymphocytes Absolute Auto 1.81 K/mm3 (0.9-3.2); Lymphocytes Percent Auto 30.9 % (18.3-44.2); Mean Corpuscular HGB Conc 30.9 g/dl (32-36); Mean Corpuscular Hemoglobin 27.9 pg (26-34); Mean Corpuscular Volume 90.3 fl (80-100); Mean Platelet Volume 12.8 fl (7.4-10.4); Monocytes Absolute Auto 0.8 K/mm3 (0.1-0.6); Monocytes Percent Auto 12.8 % (2.6-8.5); Neutrophils Percent Auto 50.5 % (45.5-73.1); Platelet Count Result 154 k/mm3 (150-375); Red Cell Distribution Width 14.5 % (11.5-14.5); White Blood Count 5.9 K/mm3 (4.5-10.0)
[2023-10-06 05:07] LABS: Anion Gap 9 mmol/L (8-16); Blood Urea Nitrogen 69 mg/dL (9-20); Calcium 8.6 mg/dL (8.4-10.2); Carbon Dioxide 23 mmol/L (22-30); Chloride 115 mmol/L (98-107); Estimated CRCL calculation 14 ml/min; Estimated Glomerular Filt Rate 17; Glucose 123 mg/dL (65-110); Magnesium 1.9 mg/dL (1.6-2.3); Sodium 147 mmol/L (137-145)
[2023-10-06 09:01] LABS: Glucose Point of Care 121 mg/dl (65-105)
[2023-10-06] MEDS: DEXTROSE 5% IN WATER 500 ML 100 ML IV CONT (09:23)
[2023-10-06] MEDS: MEROPENEM 1 GM/NS 100 ML 1 GM/100 ML BAG IVPB ×2 (09:26→18:09)
[2023-10-06] MEDS: ATORVASTATIN 20 MG TABLET PO (09:35)
[2023-10-06] MEDS: FERROUS SULFATE 325 MG TABLET DR BY MOUTH ×2 (09:35→18:08)
[2023-10-06] MEDS: amLODIPine BESYLATE 5 MG TABLET 10 MG PO (09:35)
[2023-10-06] MEDS: APIXABAN 5 MG TABLET PO ×2 (09:36→21:59)
[2023-10-06] MEDS: FLUCONAZOLE 100 MG TABLET PO (09:36)
[2023-10-06] MEDS: hydrALAZINE HCL 50 MG TABLET 100 MG PO ×3 (09:36→18:08)
--- NOTE | 2023-10-06 10:10 | PM.IMPN ---
Progress Note: A&P Assessment and Plan (1) Dementia: Code(s): F03.90 - Unspecified dementia, unspecified severity, without behavioral disturbance, psychotic disturbance, mood disturbance, and anxiety Status: Acute (2) Acute UTI: Code(s): N39.0 - Urinary tract infection, site not specified Status: Acute (3) Acute kidney injury superimposed on CKD: Code(s): N17.9 - Acute kidney failure, unspecified; N18.9 - Chronic kidney disease, unspecified Status: Acute (4) Hypoglycemia: Code(s): E16.2 - Hypoglycemia, unspecified Status: Acute (5) Acute hypernatremia: Code(s): E87.0 - Hyperosmolality and hypernatremia Status: Acute (6) Elevated troponin: Code(s): R79.89 - Other specified abnormal findings of blood chemistry Status: Acute (7) Hypertension: Code(s): I10 - Essential (primary) hypertension Status: Chronic (8) Altered mental status: Qualifiers: Altered mental status type: unspecified Qualified Code(s): R41.82 - Altered mental status, unspecified Code(s): R41.82 - Altered mental status, unspecified Status: Acute (9) Insulin dependent diabetes mellitus: Status: Chronic (10) A-fib: Code(s): I48.91 - Unspecified atrial fibrillation Status: Acute Plan 72-year-old male with history of AFib on Xarelto advanced dementia, chronic anemia, cerebrovascular accident with residual deficits, hypertension, insulin-dependent diabetes mellitus, CKD stage IV, personal history of UTI with E coli. Patient is a permanent resident of [facility] and apparently has not had any family or contacts for many years. He was reported to be falling at the nursing and on arrival to [place] ED he presented with hypoglycemia hypernatremia LINDSEY on CKD and UTI. Admitted on 10/02 #Hypoglycemia -this is likely due to his poor oral intake. Speech eval completed, continue pureed thickened liquids. Encourage oral intake and dietary supplements -hypoglycemia resolved, resume treatment per diabetes mellitus plan #Insulin-dependent diabetes mellitus -He is on Levemir 10 units q.h.s. and sliding scale at home -blood sugars are under control. Continue to hold Levemir -continue Accu-Cheks q.6 hours, use sliding scale necessary #Hypernatremia -this is due to free water deficit. Admission sodium 155 now 145 on 10/04 -resolved. Discontinue D5 water on 10/04. -on 10/06 his hypernatremia has returned, 147.. Restart D5 water at 100 cc/hour. Encourage free water intake. #UTI -in 04/28 the patient presented with UTI as well and treated with meropenem and imipenem. -meropenem started 10/02 -this admission urine culture demonstrating E coli with similar resistance patterns. Augmentin not a good choice an ESBL. Neither are nitrofurantoin or Zosyn due to his kidney function. Continue meropenem and this is set to complete on 10/09. If returning to [facility] earlier than that could switch to ertapenem for 1 day dosing. #thrush -continue fluconazole 100 mg p.o. q.day for 7 days #community-acquired pneumonia -continue meropenem and azithromycin -on 10/04 discontinue azithromycin. Fluconazole was started and we need to avoid further prolonging the QTC -follow same course as UTI. Meropenem to complete on 10/09 #Dehydration, failure to thrive, severe protein calorie malnutrition, CVA with residual deficit -speech eval completed. Encourage oral intake. Continue with diabetic consistent carbohydrate diet with supplements. Level 4 pureed and thickened liquids #Hypertension -currently uncontrolled. Continue amlodipine 10 mg p.o. q.day and hydralazine 100 mg p.o. t.i.d.. Add losartan 50 mg p.o. q.day. 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
[2023-10-06 11:12] LABS: Glucose Point of Care 193 mg/dl (65-105)
--- NOTE | 2023-10-06 13:01 | P.PNNP_ITS ---
Progress Note: A&P Assessment and Plan (1) LINDSEY (acute kidney injury): Code(s): N17.9 - Acute kidney failure, unspecified Status: Acute Assessment and Plan: * slow improvement noted * unclear what baseline creatinine normally runs * previous records available are from March 2022 -- creatinine at that time was 3.06mg/dl * on hospital discharge from [facility] in April 2023, creatinine was 3.9mg/dl (possible new baseline?) * evaluation to date: * renal ultrasound consistent with CKD * urine electrolytes non-prerenal * CPK normal * UA indicative of infection (see #4) * nephrotic range proteinuria * suspect due ti volume depletion and UTI * follow trend of labs with and UOP (2) Chronic kidney disease, stage IV (severe): Code(s): N18.4 - Chronic kidney disease, stage 4 (severe) Status: Chronic Assessment and Plan: * last creatinine available is from April 2023 - 3.9mg/dl * presumably due to diabetes, hypertension, UTIs, and age-related change (3) Hypernatremia: Code(s): E87.0 - Hyperosmolality and hypernatremia Status: Acute Assessment and Plan: * better but creeping up again * due to free water deficit and volume depletion * improvement noted with D5W IVFs * suspect this will be a chronic issue/problem given his suboptimal food/fluid intake * probably need a G-tube for adequate nutritional support (4) Acute UTI: Code(s): N39.0 - Urinary tract infection, site not specified Status: Acute Assessment and Plan: * urine culture with E.coli * on antibitoics (5) Hypertension: Code(s): I10 - Essential (primary) hypertension Status: Chronic Assessment and Plan: * poor control on admission * resumed on home medications (minus HCTZ) * PRN medications intiated * follow trend of hemodynamics . (6) Insulin dependent diabetes mellitus: Status: Chronic Assessment and Plan: * follow accu-cheks * glycemic control per hospitalists Will continue to follow. Subjective Date/time seen: 10/06/23 13:01 Interval history: Follow-up for acute kidney injury/acute renal failure on chronic kidney disease and hypernatremia. Appears about the same but sodium and creatinine up a bit in the last 24 hours so being given 500cc of D5W over 5 hours; no other issues or events; mentation appears unchanged when labs seen. Exam Narrative: General: elderly AA male who appears in NAD Heart: normal S1 and S2; no rub Lungs: clear to auscultation Abdomen: soft, nontender, nondistended, positive bowel sounds Extremities: no cyanosis or clubbing; no edema Skin: no rash Objective Data Vital Signs Vital Signs: Vital Signs Temp Pulse Resp BP Pulse Ox O2 Del Method 10/06/23 12:48 98.2 F 54 L 20 170/73 H 99 10/06/23 12:00 Room Air 10/06/23 11:16 98.1 F 61 18 184/73 H 100 10/06/23 07:41 97.0 F L 46 L 18 170/56 H 100 10/06/23 06:00 48 L 10/06/23 05:10 97.5 F L 66 20 180/56 H 100 10/06/23 04:00 53 L 20 99 Room Air 10/06/23 04:00 54 L 10/06/23 02:00 45 L 10/06/23 00:00 47 L 20 99 Room Air 10/06/23 00:00 43 L 10/05/23 23:58 98.8 F 57 L 20 160/78 H 99 10/05/23 22:00 72 10/05/23 20:00 98.8 F 58 L
--- NOTE | 2023-10-06 13:01 | PM.PNNEP ---
Progress Note: A&P Assessment and Plan (1) LINDSEY (acute kidney injury): Code(s): N17.9 - Acute kidney failure, unspecified Status: Acute Assessment and Plan: slow improvement noted unclear what baseline creatinine normally runs previous records available are from March 2022 -- creatinine at that time was 3.06mg/dl on hospital discharge from [facility] in April 2023, creatinine was 3.9mg/dl (possible new baseline?) evaluation to date: renal ultrasound consistent with CKD urine electrolytes non-prerenal CPK normal UA indicative of infection (see #4) nephrotic range proteinuria suspect due ti volume depletion and UTI follow trend of labs with and UOP (2) Chronic kidney disease, stage IV (severe): Code(s): N18.4 - Chronic kidney disease, stage 4 (severe) Status: Chronic Assessment and Plan: last creatinine available is from April 2023 - 3.9mg/dl presumably due to diabetes, hypertension, UTIs, and age-related change (3) Hypernatremia: Code(s): E87.0 - Hyperosmolality and hypernatremia Status: Acute Assessment and Plan: better but creeping up again due to free water deficit and volume depletion improvement noted with D5W IVFs suspect this will be a chronic issue/problem given his suboptimal food/fluid intake probably need a G-tube for adequate nutritional support (4) Acute UTI: Code(s): N39.0 - Urinary tract infection, site not specified Status: Acute Assessment and Plan: urine culture with E.coli on antibitoics (5) Hypertension: Code(s): I10 - Essential (primary) hypertension Status: Chronic Assessment and Plan: poor control on admission resumed on home medications (minus HCTZ) PRN medications intiated follow trend of hemodynamics . (6) Insulin dependent diabetes mellitus: Status: Chronic Assessment and Plan: follow accu-cheks glycemic control per hospitalists Will continue to follow. Subjective Date/time seen: 10/06/23 13:01 Interval history: Follow-up for acute kidney injury/acute renal failure on chronic kidney disease and hypernatremia. Appears about the same but sodium and creatinine up a bit in the last 24 hours so being given 500cc of D5W over 5 hours; no other issues or events; mentation appears unchanged when labs seen. Exam Narrative: General: elderly AA male who appears in NAD Heart: normal S1 and S2; no rub Lungs: clear to auscultation Abdomen: soft, nontender, nondistended, positive bowel sounds Extremities: no cyanosis or clubbing; no edema Skin: no rash Objective Data Vital Signs Vital Signs: Vital Signs Temp Pulse Resp BP Pulse Ox O2 Del Method 10/06/23 12:48 98.2 F 54 L 20 170/73 H 99 10/06/23 12:00 Room Air 10/06/23 11:16 98.1 F 61 18 184/73 H 100 10/06/23 07:41 97.0 F L 46 L 18 170/56 H 100 10/06/23 06:00 48 L 10/06/23 05:10 97.5 F L 66 20 180/56 H 100 10/06/23 04:00 53 L 20 99 Room Air 10/06/23 04:00 54 L 10/06/23 02:00 45 L 10/06/23 00:00 47 L 20 99 Room Air 10/06/23 00:00 43 L 10/05/23 23:58 98.8 F 57 L 20 160/78 H 99 10/05/23 22:00 72 10/05/23 20:00 98.8 F 58 L 20 154/60 H 100 10/05/23 20:00 68 20 94 Room Air 10/05/23 20:00 68 10/05/23 18:00 45 L Intake/Output Intake/Output: Intake & Output 10/03/23 10/04/23 10/05/23 10/06/23 23:59 23:59 23:59 23:59 Intake Total 2690 2660 1400 480 Output Total 550 480 Balance 2140 2180 1400 480 Meds/Results Medications: Active Medications Generic Name Dose Route Start Last Admin Trade Name Freq PRN Reason Stop Dose Admin Amlodipine Besylate 10 mg 10/02/23 09:00 10/06/23 09:35 Amlodipine Besylate 5 Mg Tablet PO 10 mg DAILY URIAH Administration Apixaban 5 mg 10/04/23 17:00 10/06/23 09:36 Apixaban 5 Mg Tablet PO 5 mg Q12HR S
[2023-10-06 16:22] LABS: Glucose Point of Care 153 mg/dl (65-105)
[2023-10-06 20:08] LABS: Glucose Point of Care 163 mg/dl (65-105)
[2023-10-07] VITALS (9 sets, daily range): BP systolic 124–178; BP diastolic 55–79; PULSE 46–105; RESP 16–22; TEMP 36.3–37.6; O2SAT 98–100
[2023-10-07 05:48] LABS: Anion Gap 9 mmol/L (8-16); Blood Urea Nitrogen 66 mg/dL (9-20); Calcium 8.7 mg/dL (8.4-10.2); Carbon Dioxide 23 mmol/L (22-30); Chloride 116 mmol/L (98-107); Estimated CRCL calculation 15 ml/min; Estimated Glomerular Filt Rate 18; Glucose 116 mg/dL (65-110); Magnesium 1.9 mg/dL (1.6-2.3); Sodium 148 mmol/L (137-145)
[2023-10-07 08:15] LABS: Glucose Point of Care 117 mg/dl (65-105)
[2023-10-07] MEDS: FLUCONAZOLE 100 MG TABLET PO (09:05)
[2023-10-07] MEDS: FERROUS SULFATE 325 MG TABLET DR BY MOUTH ×2 (09:05→17:07)
[2023-10-07] MEDS: ATORVASTATIN 20 MG TABLET PO (09:05)
[2023-10-07] MEDS: LOSARTAN POTASSIUM 50 MG TABLET PO (09:05)
[2023-10-07] MEDS: APIXABAN 5 MG TABLET PO ×2 (09:05→21:07)
[2023-10-07] MEDS: hydrALAZINE HCL 50 MG TABLET 100 MG PO ×3 (09:06→17:07)
[2023-10-07] MEDS: NIFEdipine 30 MG TAB.ER.24 PO (09:06)
[2023-10-07] MEDS: MEROPENEM 1 GM/NS 100 ML 1 GM/100 ML BAG IVPB (09:06)
--- NOTE | 2023-10-07 11:05 | PM.IMPN ---
Progress Note: A&P Assessment and Plan (1) Dementia: Code(s): F03.90 - Unspecified dementia, unspecified severity, without behavioral disturbance, psychotic disturbance, mood disturbance, and anxiety Status: Acute (2) Acute UTI: Code(s): N39.0 - Urinary tract infection, site not specified Status: Acute (3) Acute kidney injury superimposed on CKD: Code(s): N17.9 - Acute kidney failure, unspecified; N18.9 - Chronic kidney disease, unspecified Status: Acute (4) Hypoglycemia: Code(s): E16.2 - Hypoglycemia, unspecified Status: Acute (5) Acute hypernatremia: Code(s): E87.0 - Hyperosmolality and hypernatremia Status: Acute (6) Elevated troponin: Code(s): R79.89 - Other specified abnormal findings of blood chemistry Status: Acute (7) Hypertension: Code(s): I10 - Essential (primary) hypertension Status: Chronic (8) Altered mental status: Qualifiers: Altered mental status type: unspecified Qualified Code(s): R41.82 - Altered mental status, unspecified Code(s): R41.82 - Altered mental status, unspecified Status: Acute (9) Insulin dependent diabetes mellitus: Status: Chronic (10) A-fib: Code(s): I48.91 - Unspecified atrial fibrillation Status: Acute Plan 72-year-old male with history of AFib on Xarelto advanced dementia, chronic anemia, cerebrovascular accident with residual deficits, hypertension, insulin-dependent diabetes mellitus, CKD stage IV, personal history of UTI with E coli. [facility] and apparently has not had any family or contacts for many years. He was reported to be falling at the nursing and on arrival to [place] ED he presented with hypoglycemia hypernatremia LINDSEY on CKD and UTI. Admitted on 10/02 #Hypoglycemia -this is likely due to his poor oral intake. Speech eval completed, continue pureed thickened liquids. Encourage oral intake and dietary supplements -hypoglycemia resolved, resume treatment per diabetes mellitus plan #Insulin-dependent diabetes mellitus -He is on Levemir 10 units q.h.s. and sliding scale at home -blood sugars are under control. Continue to hold Levemir -continue Accu-Cheks q.6 hours, use sliding scale necessary #Hypernatremia -this is due to free water deficit. Admission sodium 155 now 145 on 10/04 -resolved. Discontinue D5 water on 10/04. -on 10/06 his hypernatremia has returned, 147.. Restart D5 water at 100 cc/hour. Encourage free water intake. 10/07: increase D5 to 150 ml/h #UTI -in 04/28 the patient presented with UTI as well and treated with meropenem and imipenem. -meropenem started 10/02 -this admission urine culture demonstrating E coli with similar resistance patterns. Augmentin not a good choice an ESBL. Neither are nitrofurantoin or Zosyn due to his kidney function. Continue meropenem and this is set to complete on 10/09. [facility] than [facility] could switch to ertapenem for 1 day dosing. 10/07 c/w the current abx #thrush -continue fluconazole 100 mg p.o. q.day for 7 days #community-acquired pneumonia -continue meropenem and azithromycin -on 10/04 discontinue azithromycin. Fluconazole was started and we need to avoid further prolonging the QTC -follow same course as UTI. Meropenem to complete on 10/09 #Dehydration, failure to thrive, severe protein calorie malnutrition, CVA with residual deficit -speech eval completed. Encourage oral intake. Continue with diabetic consistent carbohydrate diet with supplements. Level 4 pureed and thickened liquids #Hypertension -currently uncontrolled. Continue amlodipine 10 mg p.o. q.day and hydralazine 100 mg p.o. t.i.d.. Add losartan 50 mg p.o. q.day. 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
[2023-10-07 11:16] LABS: Basophils Percent Auto 0.3 % (0.2-1.2); Eosinophils Absolute Auto 0.4 K/mm3 (0-0.3); Eosinophils Percent Auto 6.4 % (0-4.4); Hemoglobin 9.4 g/dL (14.0-18.0); Immature Granulocyte Absolute 0.02 K/mm3 (0.00-0.031); Immature Granulocyte Percent A 0.3 % (0-0.5); Immature Platelet Fraction Pct 8.4 % (0.9-11.2); Lymphocytes Absolute Auto 1.45 K/mm3 (0.9-3.2); Mean Corpuscular HGB Conc 30.3 g/dl (32-36); Mean Corpuscular Hemoglobin 28.2 pg (26-34); Mean Corpuscular Volume 93.1 fl (80-100); Mean Platelet Volume 13.9 fl (7.4-10.4); Monocytes Absolute Auto 0.7 K/mm3 (0.1-0.6); Monocytes Percent Auto 12.6 % (2.6-8.5); Neutrophils Absolute Auto 3.2 K/mm3 (1.3-6.7); Neutrophils Percent Auto 55.4 % (45.5-73.1); Platelet Count Result 137 k/mm3 (150-375); Red Blood Count 3.33 M/mm3 (4.6-6.20); Red Cell Distribution Width 14.6 % (11.5-14.5); White Blood Count 5.8 K/mm3 (4.5-10.0)
[2023-10-07 11:54] LABS: Glucose Point of Care 146 mg/dl (65-105)
--- NOTE | 2023-10-07 12:31 | P.PNNP_ITS ---
Progress Note: A&P Assessment and Plan (1) LINDSEY (acute kidney injury): Code(s): N17.9 - Acute kidney failure, unspecified Status: Acute Assessment and Plan: * slow improvement noted if not stable * unclear what baseline creatinine normally runs * previous records available are from March 2022 -- creatinine at that time was 3.06mg/dl * on hospital discharge from [facility] in April 2023, creatinine was 3.9mg/dl (possible new baseline?) * evaluation to date: * renal ultrasound consistent with CKD * urine electrolytes non-prerenal * CPK normal * UA indicative of infection (see #4) * nephrotic range proteinuria * suspect due oi volume depletion and UTI * follow trend of labs with and UOP (2) Chronic kidney disease, stage IV (severe): Code(s): N18.4 - Chronic kidney disease, stage 4 (severe) Status: Chronic Assessment and Plan: * last creatinine available is from April 2023 - 3.9mg/dl * presumably due to diabetes, hypertension, UTIs, and age-related change (3) Hypernatremia: Code(s): E87.0 - Hyperosmolality and hypernatremia Status: Acute Assessment and Plan: * better but creeping up again * due to free water deficit and volume depletion * improvement noted with D5W IVFs - this has been restarted * suspect this will be a chronic issue/problem given his suboptimal food/fluid intake * probably need a G-tube for adequate nutritional support (4) Acute UTI: Code(s): N39.0 - Urinary tract infection, site not specified Status: Acute Assessment and Plan: * urine culture with E.coli * on antibitoics (5) Hypertension: Code(s): I10 - Essential (primary) hypertension Status: Chronic Assessment and Plan: * poor control on admission * resumed on home medications (minus HCTZ) * PRN medications intiated * follow trend of hemodynamics . (6) Insulin dependent diabetes mellitus: Status: Chronic Assessment and Plan: * follow accu-cheks * glycemic control per hospitalists I agree with Dr. Plasencia that without any salesperson burial needs to make decisions for the patient, I suspect he will have recurrent hospitalizations for the same issue regarding electrolyte abnormalities and worsening renal dysfunction and more concerning is the fact that there will probably come a point where he may require renal replacement therapy/dialysis due to his advanced kidney disease.? Given his underlying dementia and neuro-cognitive issues, he is a poor candidate for dialysis. Will continue to follow. Subjective Date/time seen: 10/07/23 12:31 Interval history: Follow-up for acute kidney injury/acute renal failure on chronic kidney disease and hypernatremia. Sodium continues to trend up/worsen despite effort to have patient increase free water intake so D5W IVF restarted to compensate; otherwise, mentation seems about the same; no apparent distress noted; no other issues/events overnight or earlier this morning; due to ongoing hypertension, amlodipine switched to nifedipine. Exam Narrative: General: elderly AA male who appears in NAD Heart: normal S1 and S2; no rub Lungs: clear to auscultation Abdomen: soft, nontender, nondistended, positive bowel sounds Extremities: no cyanosis or clubbing; no edema Skin: no nodules Objective Data Vital Signs Vital Signs: Vital Signs Temp Pulse Resp BP Pulse
--- NOTE | 2023-10-07 12:31 | PM.PNNEP ---
Progress Note: A&P Assessment and Plan (1) LINDSEY (acute kidney injury): Code(s): N17.9 - Acute kidney failure, unspecified Status: Acute Assessment and Plan: slow improvement noted if not stable unclear what baseline creatinine normally runs previous records available are from March 2022 -- creatinine at that time was 3.06mg/dl on hospital discharge from [facility] in April 2023, creatinine was 3.9mg/dl (possible new baseline?) evaluation to date: renal ultrasound consistent with CKD urine electrolytes non-prerenal CPK normal UA indicative of infection (see #4) nephrotic range proteinuria suspect due oi volume depletion and UTI follow trend of labs with and UOP (2) Chronic kidney disease, stage IV (severe): Code(s): N18.4 - Chronic kidney disease, stage 4 (severe) Status: Chronic Assessment and Plan: last creatinine available is from April 2023 - 3.9mg/dl presumably due to diabetes, hypertension, UTIs, and age-related change (3) Hypernatremia: Code(s): E87.0 - Hyperosmolality and hypernatremia Status: Acute Assessment and Plan: better but creeping up again due to free water deficit and volume depletion improvement noted with D5W IVFs - this has been restarted suspect this will be a chronic issue/problem given his suboptimal food/fluid intake probably need a G-tube for adequate nutritional support (4) Acute UTI: Code(s): N39.0 - Urinary tract infection, site not specified Status: Acute Assessment and Plan: urine culture with E.coli on antibitoics (5) Hypertension: Code(s): I10 - Essential (primary) hypertension Status: Chronic Assessment and Plan: poor control on admission resumed on home medications (minus HCTZ) PRN medications intiated follow trend of hemodynamics . (6) Insulin dependent diabetes mellitus: Status: Chronic Assessment and Plan: follow accu-cheks glycemic control per hospitalists I agree with Dr. Plasencia that without any personalized living manager to make decisions for the patient, I suspect he will have recurrent hospitalizations for the same issue regarding electrolyte abnormalities and worsening renal dysfunction and more concerning is the fact that there will probably come a point where he may require renal replacement therapy/dialysis due to his advanced kidney disease.? Given his underlying dementia and neuro-cognitive issues, he is a poor candidate for dialysis. Will continue to follow. Subjective Date/time seen: 10/07/23 12:31 Interval history: Follow-up for acute kidney injury/acute renal failure on chronic kidney disease and hypernatremia. Sodium continues to trend up/worsen despite effort to have patient increase free water intake so D5W IVF restarted to compensate; otherwise, mentation seems about the same; no apparent distress noted; no other issues/events overnight or earlier this morning; due to ongoing hypertension, amlodipine switched to nifedipine. Exam Narrative: General: elderly AA male who appears in NAD Heart: normal S1 and S2; no rub Lungs: clear to auscultation Abdomen: soft, nontender, nondistended, positive bowel sounds Extremities: no cyanosis or clubbing; no edema Skin: no nodules Objective Data Vital Signs Vital Signs: Vital Signs Temp Pulse Resp BP Pulse Ox O2 Del Method 10/07/23 12:00 98.8 F 63 20 130/79 98 10/07/23 08:00 Room Air 10/07/23 08:00 56 L 10/07/23 08:00 99.6 F 105 H 16 151/72 H 100 10/07/23 04:00 46 L 10/07/23 00:50 97.4 F L 91 20 176/76 H 100 10/06/23 23:42 48 L 10/06/23 20:00 51 L 20 99 Room Air 10/06/23 20:00 51 L 10/06/23 18:00 51 L Intake/Output Intake/Output: Intake & Output 10/04/23 10/05/23 10/06/23 10/07/23 23:59 23:59 23:59 23:59 Intake Total 2660 1400 940 720 Output Total 480 Balance 2180 1400 940 7
[2023-10-07] MEDS: DEXTROSE 5% 1,000 ML 1,000 ML 150 ML IV CONT ×2 (14:30→21:07)
[2023-10-07 15:47] LABS: Glucose Point of Care 171 mg/dl (65-105)
[2023-10-07 20:26] LABS: Glucose Point of Care 217 mg/dl (65-105)
[2023-10-07] MEDS: MEROPENEM 500 MG in SODIUM CHLORIDE 0.9% IV 100 ML 200 ML IVPB (21:07)
[2023-10-08] VITALS (8 sets, daily range): BP systolic 117–178; BP diastolic 71–83; PULSE 47–75; RESP 18–20; TEMP 37–37.1; O2SAT 98–99
[2023-10-08 04:43] LABS: Basophils Percent Auto 0.2 % (0.2-1.2); Eosinophils Absolute Auto 0.3 K/mm3 (0-0.3); Eosinophils Percent Auto 5.9 % (0-4.4); Hematocrit 29.2 % (42.0-52.0); Hemoglobin 9.1 g/dL (14.0-18.0); Immature Granulocyte Absolute 0.03 K/mm3 (0.00-0.031); Immature Granulocyte Percent A 0.5 % (0-0.5); Immature Platelet Fraction Pct 7.3 % (0.9-11.2); Lymphocytes Absolute Auto 1.56 K/mm3 (0.9-3.2); Lymphocytes Percent Auto 28.1 % (18.3-44.2); Mean Corpuscular HGB Conc 31.2 g/dl (32-36); Mean Corpuscular Hemoglobin 28.2 pg (26-34); Mean Corpuscular Volume 90.4 fl (80-100); Mean Platelet Volume 13.4 fl (7.4-10.4); Monocytes Absolute Auto 0.7 K/mm3 (0.1-0.6); Monocytes Percent Auto 12.6 % (2.6-8.5); Neutrophils Absolute Auto 2.9 K/mm3 (1.3-6.7); Neutrophils Percent Auto 52.7 % (45.5-73.1); Platelet Count Result 132 k/mm3 (150-375); Red Blood Count 3.23 M/mm3 (4.6-6.20); White Blood Count 5.6 K/mm3 (4.5-10.0)
[2023-10-08] MEDS: DEXTROSE 5% 1,000 ML 1,000 ML 150 ML IV CONT (04:49)
[2023-10-08 05:05] LABS: Alanine Aminotransferase 11 U/L (6-50); Alkaline Phosphatase 58 U/L (38-126); Anion Gap 8 mmol/L (8-16); Aspartate Amino Transferase 21 U/L (17-59); Bilirubin,Total 0.4 mg/dL (0.2-1.3); Blood Urea Nitrogen 66 mg/dL (9-20); Calcium 8.5 mg/dL (8.4-10.2); Carbon Dioxide 24 mmol/L (22-30); Chloride 111 mmol/L (98-107); Estimated CRCL calculation 15 ml/min; Estimated Glomerular Filt Rate 18; Glucose 177 mg/dL (65-110); Potassium 3.7 mmol/L (3.4-5.0); Sodium 143 mmol/L (137-145)
[2023-10-08 08:22] LABS: Glucose Point of Care 186 mg/dl (65-105)
[2023-10-08] MEDS: ATORVASTATIN 20 MG TABLET PO (08:51)
[2023-10-08] MEDS: FERROUS SULFATE 325 MG TABLET DR BY MOUTH ×2 (08:51→17:18)
[2023-10-08] MEDS: APIXABAN 5 MG TABLET PO ×2 (08:51→20:32)
[2023-10-08] MEDS: LOSARTAN POTASSIUM 50 MG TABLET PO (08:51)
[2023-10-08] MEDS: hydrALAZINE HCL 50 MG TABLET 100 MG PO ×3 (08:51→17:17)
[2023-10-08] MEDS: FLUCONAZOLE 100 MG TABLET PO (08:51)
[2023-10-08] MEDS: NIFEdipine 30 MG TAB.ER.24 PO (08:52)
[2023-10-08] MEDS: MEROPENEM 500 MG in SODIUM CHLORIDE 0.9% IV 100 ML 200 ML IVPB ×2 (08:56→20:32)
--- NOTE | 2023-10-08 09:18 | PM.IMPN ---
Progress Note: A&P Assessment and Plan (1) Dementia: Code(s): F03.90 - Unspecified dementia, unspecified severity, without behavioral disturbance, psychotic disturbance, mood disturbance, and anxiety Status: Acute (2) Acute UTI: Code(s): N39.0 - Urinary tract infection, site not specified Status: Acute (3) Acute kidney injury superimposed on CKD: Code(s): N17.9 - Acute kidney failure, unspecified; N18.9 - Chronic kidney disease, unspecified Status: Acute (4) Hypoglycemia: Code(s): E16.2 - Hypoglycemia, unspecified Status: Acute (5) Acute hypernatremia: Code(s): E87.0 - Hyperosmolality and hypernatremia Status: Acute (6) Elevated troponin: Code(s): R79.89 - Other specified abnormal findings of blood chemistry Status: Acute (7) Hypertension: Code(s): I10 - Essential (primary) hypertension Status: Chronic (8) Altered mental status: Qualifiers: Altered mental status type: unspecified Qualified Code(s): R41.82 - Altered mental status, unspecified Code(s): R41.82 - Altered mental status, unspecified Status: Acute (9) Insulin dependent diabetes mellitus: Status: Chronic (10) A-fib: Code(s): I48.91 - Unspecified atrial fibrillation Status: Acute Plan 72-year-old male with history of AFib on Xarelto advanced dementia, chronic anemia, cerebrovascular accident with residual deficits, hypertension, insulin-dependent diabetes mellitus, CKD stage IV, personal history of UTI with E coli. Patient is a permanent resident of long term and apparently has not had any family or contacts for many years. He was reported to be falling at the nursing and on arrival to [place] ED he presented with hypoglycemia hypernatremia LINDSEY on CKD and UTI. Admitted on 10/02 #Hypoglycemia -this is likely due to his poor oral intake. Speech eval completed, continue pureed thickened liquids. Encourage oral intake and dietary supplements -hypoglycemia resolved, resume treatment per diabetes mellitus plan corrected #Insulin-dependent diabetes mellitus -He is on Levemir 10 units q.h.s. and sliding scale at home -blood sugars are under control. Continue to hold Levemir -continue Accu-Cheks q.6 hours, use sliding scale necessary #Hypernatremia -this is due to free water deficit. Admission sodium 155 now 145 on 10/04 -resolved. Discontinue D5 water on 10/04. -on 10/06 his hypernatremia has returned, 147.. Restart D5 water at 100 cc/hour. Encourage free water intake. 10/07: increase D5 to 150 ml/h 10/08: Na 143 today #UTI -in 04/28 the patient presented with UTI as well and treated with meropenem and imipenem. -meropenem started 10/02 -this admission urine culture demonstrating E coli with similar resistance patterns. Augmentin not a good choice an ESBL. Neither are nitrofurantoin or Zosyn due to his kidney function. Continue meropenem and this is set to complete on 10/09. If returning to long term earlier than that could switch to ertapenem for 1 day dosing. 10/07 c/w the current abx #thrush -continue fluconazole 100 mg p.o. q.day for 7 days #community-acquired pneumonia -continue meropenem and azithromycin -on 10/04 discontinue azithromycin. Fluconazole was started and we need to avoid further prolonging the QTC -follow same course as UTI. Meropenem to complete on 10/09 #Dehydration, failure to thrive, severe protein calorie malnutrition, CVA with residual deficit -speech eval completed. Encourage oral intake. Continue with diabetic consistent carbohydrate diet with supplements. Level 4 pureed and thickened liquids #Hypertension -currently uncontrolled. Continue amlodipine 10 mg p.o. q.day and hydralazine 100 mg p.o. t.i.d.. Add losartan 50 mg p.o. q.day. -home medication clonidine has been discontinued due to AV dissociation 2/2 blood pressure is not well controlled, patient is on hydralazine 100 mg t.i.d. p.o.,
--- NOTE | 2023-10-08 11:17 | PM.PNCARD ---
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 As correctly noted in my partners consultation note pacemaker implantation is technically indicated for this arrhythmia but certainly does not have to be done in this gentleman with you is [facility] resident and very poor condition overall. It should also be made clear that he was not admitted to the hospital because of symptomatic Ender arrhythmias. We do not need to keep this patient in the hospital observing telemetry any longer and he can be discharged to the [facility] when he is done receiving antibiotics for E coli infection. It is important to make sure the [facility] staff for aware of the bradycardia so that he not do not send him back to the hospital because of this issue. There is nothing else that can be done or needs to be done for this in my opinion. Cardiology is officially signing off at this time Andrzej Rowe MD [facility] Subjective Date/time seen: Date of service: 10/08/23 11:17 Interval history: Follow-up for AV dissociation Patient sleeping, remains nonverbal but arouses to name giving a thumbs-up to every question asked. No new issues overnight. He remains hemodynamically stable. He remains bradycardic with evidence of AV dissociation and intermittent complete heart block on telemetry. Intermittent wide complex aberrant conduction but with unchanged heart rate generally in the 40s. No prolonged pauses. Date of service 10/08/2023: Chart reviewed patient seen in IMU. He remains nonverbal demented and in position in his bed. Patient's cardiac rhythm remains unchanged she has AV dissociation with junctional escape rhythm in the 50s primarily. He is not symptomatic with this and there have been no other cardiac issues. According to the nursing staff he remains hospitalized for least 1 more day to finish IV antibiotics for E coli infection. Exam Narrative: General: Elderly male in bed in the position Head: atraumatic, normocephalic Eyes: EOM intact, sclerae anicteric, conjunctivae unremarkable Ears/Nose: external inspection of ears and nose were grossly normal Mouth/Throat: oral mucosa pink and moist Neck: supple, normal range of motion, no jugular venous distention or carotid bruits, thyroid nonpalpable, trachea midline. Cardiac: Bradycardic, distant heart sounds, regular rate and rhythm, normal S1-S2, no appreciable murmurs No gallops or rubs. Lungs: Clear to auscultation bilaterally, no rales, wheezes, or rhonchi. Abdomen: Soft, nontender, nondistended, positive bowel sounds throughout. No appreciable hepatosplenomegaly, rebound guarding or rigidity noted. Abdominal aorta nonpalpable, no appreciable bruits. Extremities: Trace bilateral ankle edema, no clubbing, or cyanosis. Extremities warm and well perfused. Diffuse muscle atrophy Skin: Warm and dry without ecchymoses, rashes, and/or petechiae. Musculoskeletal: Muscle strength and tone diffusely diminished Vascular: Carotid upstrokes 2+ bilaterally, radial pulses 1+ bilaterally, dorsalis pedis pulses 1+ bilaterally Neurologic: examination grossly nonfocal but limited examination is patient was not following commands Psychiatric: Mood calm, confused Const: General: no acute distress HENMT: Mouth: Yes moist mucous membranes Eyes: Sclera: sclerae normal Neck: Neck: supple Resp: Effort & Inspection: normal respiratory effort Auscultation: clear to auscultation bilaterally Cardio: Rate: regular rate and bradycardic GI: GI Palp: Yes Soft to palpation Auscultation: normal bowel sounds Urinary Catheter: Urinary Catheter: patent and stormy
[2023-10-08 11:35] LABS: Glucose Point of Care 213 mg/dl (65-105)
--- NOTE | 2023-10-08 11:46 | P.PNNP_ITS ---
Progress Note: A&P Assessment and Plan (1) LINDSEY (acute kidney injury): Code(s): N17.9 - Acute kidney failure, unspecified Status: Acute Assessment and Plan: * slow improvement noted if not stable * unclear what baseline creatinine normally runs * previous records available are from March 2022 -- creatinine at that time was 3.06mg/dl * on hospital discharge from [facility] in April 2023, creatinine was 3.9mg/dl (possible new baseline?) * evaluation to date: * renal ultrasound consistent with CKD * urine electrolytes non-prerenal * CPK normal * UA indicative of infection (see #4) * nephrotic range proteinuria * suspect due to volume depletion and UTI * follow trend of labs with and UOP (2) Chronic kidney disease, stage IV (severe): Code(s): N18.4 - Chronic kidney disease, stage 4 (severe) Status: Chronic Assessment and Plan: * last creatinine available is from April 2023 --> 3.9mg/dl * presumably due to diabetes, hypertension, UTIs, and age-related change (3) Hypernatremia: Code(s): E87.0 - Hyperosmolality and hypernatremia Status: Acute Assessment and Plan: * better at this time * due to free water deficit and volume depletion * improvement noted with D5W IVFs * suspect this will be a chronic issue/problem given his suboptimal food/fluid intake * probably needs a G-tube for adequate nutritional support (4) Acute UTI: Code(s): N39.0 - Urinary tract infection, site not specified Status: Acute Assessment and Plan: * urine culture with E.coli * on antibitoics (5) Hypertension: Code(s): I10 - Essential (primary) hypertension Status: Chronic Assessment and Plan: * poor control on admission * resumed on home medications (minus HCTZ) * changed amlodipine to nifedipine xl * follow trend of hemodynamics . (6) Insulin dependent diabetes mellitus: Status: Chronic Assessment and Plan: * follow accu-cheks * glycemic control per hospitalists Will continue to follow. Subjective Date/time seen: 10/08/23 11:46 Interval history: Follow-up for acute kidney injury/acute renal failure on chronic kidney disease and hypernatremia. Sodium doing better with re-institution of D5W IVFs; his mentation remains unchanged; no apparent istress noted; no other issues/events overnight oir earlier today. Exam Narrative: General: elderly AA male who appears in NAD Heart: normal S1 and S2; no rub Lungs: clear to auscultation Abdomen: soft, nontender, nondistended, positive bowel sounds Extremities: no cyanosis or clubbing; no edema Skin: warm and intact Objective Data Vital Signs Vital Signs: Vital Signs Temp Pulse Resp BP Pulse Ox O2 Del Method 10/08/23 11:30 58 L 10/08/23 08:00 62 10/08/23 08:00 Room Air 10/08/23 07:48 98.8 F 50 L 20 178/71 H 99 10/08/23 04:00 51 L 10/08/23 00:00 47 L 10/07/23 23:54 99.4 F 53 L 22 H 178/64 H 100 10/07/23 20:00 56 L 16 100 Room Air 10/07/23 20:00 56 L Intake/Output Intake/Output: Intake & Output 10/05/23 10/06/23 10/07/23 10/08/23 23:59 23:59 23:59 23:59 Intake Total 0678 408 3263 2440 Balance
--- NOTE | 2023-10-08 11:46 | PM.PNNEP ---
Progress Note: A&P Assessment and Plan (1) LINDSEY (acute kidney injury): Code(s): N17.9 - Acute kidney failure, unspecified Status: Acute Assessment and Plan: slow improvement noted if not stable unclear what baseline creatinine normally runs previous records available are from March 2022 -- creatinine at that time was 3.06mg/dl on hospital discharge from [facility] in April 2023, creatinine was 3.9mg/dl (possible new baseline?) evaluation to date: renal ultrasound consistent with CKD urine electrolytes non-prerenal CPK normal UA indicative of infection (see #4) nephrotic range proteinuria suspect due to volume depletion and UTI follow trend of labs with and UOP (2) Chronic kidney disease, stage IV (severe): Code(s): N18.4 - Chronic kidney disease, stage 4 (severe) Status: Chronic Assessment and Plan: last creatinine available is from April 2023 --> 3.9mg/dl presumably due to diabetes, hypertension, UTIs, and age-related change (3) Hypernatremia: Code(s): E87.0 - Hyperosmolality and hypernatremia Status: Acute Assessment and Plan: better at this time due to free water deficit and volume depletion improvement noted with D5W IVFs suspect this will be a chronic issue/problem given his suboptimal food/fluid intake probably needs a G-tube for adequate nutritional support (4) Acute UTI: Code(s): N39.0 - Urinary tract infection, site not specified Status: Acute Assessment and Plan: urine culture with E.coli on antibitoics (5) Hypertension: Code(s): I10 - Essential (primary) hypertension Status: Chronic Assessment and Plan: poor control on admission resumed on home medications (minus HCTZ) changed amlodipine to nifedipine xl follow trend of hemodynamics . (6) Insulin dependent diabetes mellitus: Status: Chronic Assessment and Plan: follow accu-cheks glycemic control per hospitalists Will continue to follow. Subjective Date/time seen: 10/08/23 11:46 Interval history: Follow-up for acute kidney injury/acute renal failure on chronic kidney disease and hypernatremia. Sodium doing better with re-institution of D5W IVFs; his mentation remains unchanged; no apparent istress noted; no other issues/events overnight oir earlier today. Exam Narrative: General: elderly AA male who appears in NAD Heart: normal S1 and S2; no rub Lungs: clear to auscultation Abdomen: soft, nontender, nondistended, positive bowel sounds Extremities: no cyanosis or clubbing; no edema Skin: warm and intact Objective Data Vital Signs Vital Signs: Vital Signs Temp Pulse Resp BP Pulse Ox O2 Del Method 10/08/23 11:30 58 L 10/08/23 08:00 62 10/08/23 08:00 Room Air 10/08/23 07:48 98.8 F 50 L 20 178/71 H 99 10/08/23 04:00 51 L 10/08/23 00:00 47 L 10/07/23 23:54 99.4 F 53 L 22 H 178/64 H 100 10/07/23 20:00 56 L 16 100 Room Air 10/07/23 20:00 56 L Intake/Output Intake/Output: Intake & Output 10/05/23 10/06/23 10/07/23 10/08/23 23:59 23:59 23:59 23:59 Intake Total 9153 872 5746 2440 Balance 0560 442 9687 2440 Meds/Results Medications: Active Medications Generic Name Dose Route Start Last Admin Trade Name Freq PRN Reason Stop Dose Admin Apixaban 5 mg 10/04/23 17:00 10/08/23 08:51 Apixaban 5 Mg Tablet PO 5 mg Q12HR URIAH Administration Atorvastatin Calcium 20 mg 10/02/23 09:00 10/08/23 08:51 Atorvastatin 20 Mg Tablet PO 20 mg DAILY URIAH Administration Dextrose 12.5 gm 10/01/23 20:32 10/01/23 21:39 Dextrose 50% 25 Gm/50 Ml Syringe IV PUSH 12.5 gm PRN PRN Administration Hypoglycemia Protocol Ferrous Sulfate 325 mg 10/02/23 09:00 10/08/23 17:18 Ferrous Sulfate [address] BY MOUTH 325 mg BID URIAH Administration Fluconazole 100 mg 10/05/23 09:00
[2023-10-08] MEDS: DEXTROSE 5% 1,000 ML 1,000 ML 75 ML IV CONT (13:20)
[2023-10-08 16:28] LABS: Glucose Point of Care 186 mg/dl (65-105)
[2023-10-08 21:04] LABS: Glucose Point of Care 101 mg/dl (65-105)
[2023-10-09] VITALS (8 sets, daily range): BP systolic 152–167; BP diastolic 57–93; PULSE 46–64; RESP 18–20; TEMP 36.3–36.9; O2SAT 99–100
[2023-10-09] MEDS: DEXTROSE 5% 1,000 ML 1,000 ML 75 ML IV CONT (04:19)
[2023-10-09 05:26] LABS: Basophils Percent Auto 0.4 % (0.2-1.2); Eosinophils Absolute Auto 0.3 K/mm3 (0-0.3); Hematocrit 27.6 % (42.0-52.0); Hemoglobin 8.8 g/dL (14.0-18.0); Immature Granulocyte Absolute 0.01 K/mm3 (0.00-0.031); Immature Granulocyte Percent A 0.2 % (0-0.5); Immature Platelet Fraction Pct 7.8 % (0.9-11.2); Lymphocytes Absolute Auto 1.74 K/mm3 (0.9-3.2); Lymphocytes Percent Auto 30.9 % (18.3-44.2); Mean Corpuscular HGB Conc 31.9 g/dl (32-36); Mean Corpuscular Hemoglobin 28.8 pg (26-34); Mean Corpuscular Volume 90.2 fl (80-100); Monocytes Absolute Auto 0.7 K/mm3 (0.1-0.6); Monocytes Percent Auto 12.2 % (2.6-8.5); Neutrophils Absolute Auto 2.8 K/mm3 (1.3-6.7); Neutrophils Percent Auto 50.3 % (45.5-73.1); Platelet Count Result 131 k/mm3 (150-375); Red Blood Count 3.06 M/mm3 (4.6-6.20); White Blood Count 5.6 K/mm3 (4.5-10.0)
[2023-10-09 05:56] LABS: Alanine Aminotransferase 11 U/L (6-50); Alkaline Phosphatase 59 U/L (38-126); Anion Gap 6 mmol/L (8-16); Aspartate Amino Transferase 21 U/L (17-59); Bilirubin,Total 0.4 mg/dL (0.2-1.3); Blood Urea Nitrogen 62 mg/dL (9-20); Calcium 8.2 mg/dL (8.4-10.2); Carbon Dioxide 24 mmol/L (22-30); Chloride 109 mmol/L (98-107); Estimated CRCL calculation 15 ml/min; Estimated Glomerular Filt Rate 19; Glucose 112 mg/dL (65-110); Potassium 3.6 mmol/L (3.4-5.0); Sodium 139 mmol/L (137-145)
[2023-10-09] MEDS: ATORVASTATIN 20 MG TABLET PO (08:40)
[2023-10-09] MEDS: MEROPENEM 500 MG in SODIUM CHLORIDE 0.9% IV 100 ML 200 ML IVPB (08:40)
[2023-10-09] MEDS: APIXABAN 5 MG TABLET PO ×2 (08:41→20:42)
[2023-10-09] MEDS: NIFEdipine 30 MG TAB.ER.24 PO (08:41)
[2023-10-09] MEDS: FERROUS SULFATE 325 MG TABLET DR BY MOUTH ×2 (08:41→17:50)
[2023-10-09] MEDS: hydrALAZINE HCL 50 MG TABLET 100 MG PO ×3 (08:41→17:50)
[2023-10-09] MEDS: LOSARTAN POTASSIUM 50 MG TABLET PO (08:42)
[2023-10-09] MEDS: FLUCONAZOLE 100 MG TABLET PO (08:42)
--- NOTE | 2023-10-09 10:06 | PM.IMPN ---
Progress Note: A&P Assessment and Plan (1) Dementia: Code(s): F03.90 - Unspecified dementia, unspecified severity, without behavioral disturbance, psychotic disturbance, mood disturbance, and anxiety Status: Acute (2) Acute UTI: Code(s): N39.0 - Urinary tract infection, site not specified Status: Acute (3) Acute kidney injury superimposed on CKD: Code(s): N17.9 - Acute kidney failure, unspecified; N18.9 - Chronic kidney disease, unspecified Status: Acute (4) Hypoglycemia: Code(s): E16.2 - Hypoglycemia, unspecified Status: Acute (5) Acute hypernatremia: Code(s): E87.0 - Hyperosmolality and hypernatremia Status: Acute (6) Elevated troponin: Code(s): R79.89 - Other specified abnormal findings of blood chemistry Status: Acute (7) Hypertension: Code(s): I10 - Essential (primary) hypertension Status: Chronic (8) Altered mental status: Qualifiers: Altered mental status type: unspecified Qualified Code(s): R41.82 - Altered mental status, unspecified Code(s): R41.82 - Altered mental status, unspecified Status: Acute (9) Insulin dependent diabetes mellitus: Status: Chronic (10) A-fib: Code(s): I48.91 - Unspecified atrial fibrillation Status: Acute Plan 72-year-old male with history of AFib on Xarelto advanced dementia, chronic anemia, cerebrovascular accident with residual deficits, hypertension, insulin-dependent diabetes mellitus, CKD stage IV, personal history of UTI with E coli. Patient is a permanent resident of senior living and apparently has not had any family or contacts for many years. He was reported to be falling at the nursing and on arrival to [place] ED he presented with hypoglycemia hypernatremia LINDSEY on CKD and UTI. Admitted on 10/02 #Hypoglycemia -this is likely due to his poor oral intake. Speech eval completed, continue pureed thickened liquids. Encourage oral intake and dietary supplements -hypoglycemia resolved, resume treatment per diabetes mellitus plan corrected #Insulin-dependent diabetes mellitus -He is on Levemir 10 units q.h.s. and sliding scale at home -blood sugars are under control. Continue to hold Levemir -continue Accu-Cheks q.6 hours, use sliding scale necessary #Hypernatremia -this is due to free water deficit. Admission sodium 155 now 145 on 10/04 -resolved. Discontinue D5 water on 10/04. -on 10/06 his hypernatremia has returned, 147.. Restart D5 water at 100 cc/hour. Encourage free water intake. 10/07: increase D5 to 150 ml/h 10/08: Na 143 today 10/09: corrected #UTI -in 04/28 the patient presented with UTI as well and treated with meropenem and imipenem. -meropenem started 10/02 -this admission urine culture demonstrating E coli with similar resistance patterns. Augmentin not a good choice an ESBL. Neither are nitrofurantoin or Zosyn due to his kidney function. Continue meropenem and this is set to complete on 10/09. If returning to senior living earlier than that could switch to ertapenem for 1 day dosing. 10/07 c/w the current abx #thrush -continue fluconazole 100 mg p.o. q.day for 7 days #community-acquired pneumonia -continue meropenem and azithromycin -on 10/04 discontinue azithromycin. Fluconazole was started and we need to avoid further prolonging the QTC -follow same course as UTI. Meropenem to complete on 10/09 #Dehydration, failure to thrive, severe protein calorie malnutrition, CVA with residual deficit -speech eval completed. Encourage oral intake. Continue with diabetic consistent carbohydrate diet with supplements. Level 4 pureed and thickened liquids #Hypertension -currently uncontrolled. Continue amlodipine 10 mg p.o. q.day and hydralazine 100 mg p.o. t.i.d.. Add losartan 50 mg p.o. q.day. -home medication clonidine has been discontinued due to AV dissociation 2/2 blood pressure is not well controlled, patient is on hydralazine 10
--- NOTE | 2023-10-09 10:30 | P.PNNP_ITS ---
Progress Note: A&P Assessment and Plan (1) LINDSEY (acute kidney injury): Code(s): N17.9 - Acute kidney failure, unspecified Status: Acute Assessment and Plan: * this is resolved , assuming baseline is around 4 * recurrent episodes of dehydration and renal failure can lead to further progression of chronic kidney disease. * unclear what baseline creatinine normally runs * previous records available are from March 2022 -- creatinine at that time was 3.06mg/dl * on hospital discharge from [facility] in April 2023, creatinine was 3.9mg/dl (possible new baseline?) * evaluation to date: * renal ultrasound consistent with CKD * urine electrolytes non-prerenal * CPK normal * UA indicative of infection (see #4) * nephrotic range proteinuria * The patient'a creatinine and sodium level are stable today. (2) Chronic kidney disease, stage IV (severe): Code(s): N18.4 - Chronic kidney disease, stage 4 (severe) Status: Chronic Assessment and Plan: * last creatinine available is from April 2023 --> 3.9mg/dl * presumably due to diabetes, hypertension, UTIs, and age-related change (3) Hypernatremia: Code(s): E87.0 - Hyperosmolality and hypernatremia Status: Acute Assessment and Plan: * Resolved * the patient does not eat or drink very much. Sitter a G-tube? (4) Acute UTI: Code(s): N39.0 - Urinary tract infection, site not specified Status: Acute Assessment and Plan: * urine culture with E.coli * on antibitoics (5) Hypertension: Code(s): I10 - Essential (primary) hypertension Status: Chronic Assessment and Plan: * poor control on admission * resumed on home medications (minus HCTZ) * changed amlodipine to nifedipine xl * Blood pressure seems to be a bit better since the change. . (6) Insulin dependent diabetes mellitus: Status: Chronic Assessment and Plan: * follow accu-cheks * glycemic control per hospitalists Will continue to follow. Subjective Date/time seen: 10/09/23 10:30 Interval history: Patient is alert. He says he is eating but when it comes down to it he does not eat or drink very well. Exam Narrative: General: elderly AA male who appears in NAD Heart: normal S1 and S2; no rub or gallop Lungs: clear to auscultation Abdomen: soft, nontender, nondistended, positive bowel sounds Extremities: no cyanosis or clubbing; no edema Skin: No rash Objective Data Vital Signs Vital Signs: Vital Signs - 24 hr 10/08/23 12:00 10/08/23 15:56 10/08/23 16:00 Temperature 98.6 F Pulse Rate 58 L 75 70 Respiratory Rate 18 Blood Pressure 117/83 Pulse Oximetry 98 Oxygen Delivery 10/08/23 20:00 10/08/23 20:00 10/09/23 00:00 Temperature 97.4 F L Pulse Rate 51 L 47 L Respiratory Rate 18 Blood Pressure 167/75 H Pulse Oximetry 100 Oxygen Delivery Room Air 10/09/23 00:00 10/09/23 04:00 10/09/23 07:57 Temperature 98.5 F Pulse Rate 47 L 46 L 51 L Respiratory Rate 18 Blood Pressure 156/93 H Pulse Oximetry 99 Oxygen Delivery Intake/Output Intake/Output: Intake & Output
--- NOTE | 2023-10-09 10:30 | PM.PNNEP ---
Progress Note: A&P Assessment and Plan (1) LINDSEY (acute kidney injury): Code(s): N17.9 - Acute kidney failure, unspecified Status: Acute Assessment and Plan: this is resolved , assuming baseline is around 4 recurrent episodes of dehydration and renal failure can lead to further progression of chronic kidney disease. unclear what baseline creatinine normally runs previous records available are from March 2022 -- creatinine at that time was 3.06mg/dl on hospital discharge from [facility] in April 2023, creatinine was 3.9mg/dl (possible new baseline?) evaluation to date: renal ultrasound consistent with CKD urine electrolytes non-prerenal CPK normal UA indicative of infection (see #4) nephrotic range proteinuria The patient'a creatinine and sodium level are stable today. (2) Chronic kidney disease, stage IV (severe): Code(s): N18.4 - Chronic kidney disease, stage 4 (severe) Status: Chronic Assessment and Plan: last creatinine available is from April 2023 --> 3.9mg/dl presumably due to diabetes, hypertension, UTIs, and age-related change (3) Hypernatremia: Code(s): E87.0 - Hyperosmolality and hypernatremia Status: Acute Assessment and Plan: Resolved the patient does not eat or drink very much. Sitter a G-tube? (4) Acute UTI: Code(s): N39.0 - Urinary tract infection, site not specified Status: Acute Assessment and Plan: urine culture with E.coli on antibitoics (5) Hypertension: Code(s): I10 - Essential (primary) hypertension Status: Chronic Assessment and Plan: poor control on admission resumed on home medications (minus HCTZ) changed amlodipine to nifedipine xl Blood pressure seems to be a bit better since the change. . (6) Insulin dependent diabetes mellitus: Status: Chronic Assessment and Plan: follow accu-cheks glycemic control per hospitalists Will continue to follow. Subjective Date/time seen: 10/09/23 10:30 Interval history: Patient is alert. He says he is eating but when it comes down to it he does not eat or drink very well. Exam Narrative: General: elderly AA male who appears in NAD Heart: normal S1 and S2; no rub or gallop Lungs: clear to auscultation Abdomen: soft, nontender, nondistended, positive bowel sounds Extremities: no cyanosis or clubbing; no edema Skin: No rash Objective Data Vital Signs Vital Signs: Vital Signs - 24 hr 10/08/23 12:00 10/08/23 15:56 10/08/23 16:00 Temperature 98.6 F Pulse Rate 58 L 75 70 Respiratory Rate 18 Blood Pressure 117/83 Pulse Oximetry 98 Oxygen Delivery 10/08/23 20:00 10/08/23 20:00 10/09/23 00:00 Temperature 97.4 F L Pulse Rate 51 L 47 L Respiratory Rate 18 Blood Pressure 167/75 H Pulse Oximetry 100 Oxygen Delivery Room Air 10/09/23 00:00 10/09/23 04:00 10/09/23 07:57 Temperature 98.5 F Pulse Rate 47 L 46 L 51 L Respiratory Rate 18 Blood Pressure 156/93 H Pulse Oximetry 99 Oxygen Delivery Intake/Output Intake/Output: Intake & Output 10/06/23 10/07/23 10/08/23 10/09/23 23:59 23:59 23:59 23:59 Intake Total 940 2060 2780 1262 Balance 940 2060 2780 1262 Meds/Results Medications: Active Medications Generic Name Dose Route Start Last Admin Trade Name Freq PRN Reason Stop Dose Admin Apixaban 5 mg 10/04/23 17:00 10/09/23 08:41 Apixaban 5 Mg Tablet PO 5 mg Q12HR URIAH Administration Atorvastatin Calcium 20 mg 10/02/23 09:00 10/09/23 08:40 Atorvastatin 20 Mg Tablet PO 20 mg DAILY URIAH Administration Dextrose 12.5 gm 10/01/23 20:32 10/01/23 21:39 Dextrose 50% 25 Gm/50 Ml Syringe IV PUSH 12.5 gm PRN PRN Administration Hypoglycemia Protocol Ferrous Sulfate 325 mg 10/02/23 09:00 10/09/23 08:41 Ferrous Sulfate [address] BY MOUTH 325 mg BID URIAH Administratio
--- NOTE | 2023-10-09 10:36 | PM.PNCARD ---
Subjective Date/time seen: 10/09/23 10:36 Interval history: Date of service: 10/09/2023 Interval history: Exam Narrative: PHYSICAL EXAMINATION: GENERAL: Alert, oriented, no acute distress MENTAL STATUS: affect appropriate to mood EYES: Extraocular movements intact, no pallor EARS: External ears appear normal, hearing grossly normal NOSE: Normal and patent, no discharge MOUTH: Mucous membranes moist, tongue normal NECK: Supple, no JVD CHEST: Good respiratory effort, clear to auscultation HEART: Normal rate, regular rhythm, normal S1 and S2, no audible murmurs ABDOMEN: Soft, nontender NEUROLOGICAL: Alert, oriented, normal speech, no gross motor deficits MUSCULOSKELETAL: No major deformity, no amputation EXTREMITIES: No pedal edema, no clubbing, no cyanosis SKIN: no rash on the exposed area, no cyanosis PSYCHIATRIC: Normal mood, appropriate affect Objective Data Vital Signs Vital Signs: Vital Signs - 24 hr 10/08/23 12:00 10/08/23 15:56 10/08/23 16:00 Temperature 37.0 C Pulse Rate 58 L 75 70 Respiratory Rate 18 Blood Pressure 117/83 Pulse Oximetry 98 Oxygen Delivery 10/08/23 20:00 10/08/23 20:00 10/09/23 00:00 Temperature 36.3 C L Pulse Rate 51 L 47 L Respiratory Rate 18 Blood Pressure 167/75 H Pulse Oximetry 100 Oxygen Delivery Room Air 10/09/23 00:00 10/09/23 04:00 10/09/23 07:57 Temperature 36.9 C Pulse Rate 47 L 46 L 51 L Respiratory Rate 18 Blood Pressure 156/93 H Pulse Oximetry 99 Oxygen Delivery Intake/Output Intake/Output: Intake & Output 10/06/23 10/07/23 10/08/23 10/09/23 23:59 23:59 23:59 23:59 Intake Total 940 2060 2780 1262 Balance 940 2060 2780 1262 Meds/Results Medications: Active Medications Generic Name Dose Route Start Last Admin Trade Name Freq PRN Reason Stop Dose Admin Apixaban 5 mg 10/04/23 17:00 10/09/23 08:41 Apixaban 5 Mg Tablet PO 5 mg Q12HR URIAH Administration Atorvastatin Calcium 20 mg 10/02/23 09:00 10/09/23 08:40 Atorvastatin 20 Mg Tablet PO 20 mg DAILY URIAH Administration Dextrose 12.5 gm 10/01/23 20:32 10/01/23 21:39 Dextrose 50% 25 Gm/50 Ml Syringe IV PUSH 12.5 gm PRN PRN Administration Hypoglycemia Protocol Ferrous Sulfate 325 mg 10/02/23 09:00 10/09/23 08:41 Ferrous Sulfate [address] BY MOUTH 325 mg BID URIAH Administration Fluconazole 100 mg 10/05/23 09:00 10/09/23 08:42 Fluconazole 100 Mg Tablet PO 100 mg QAM URIAH Administration Glucagon 1 mg 10/01/23 20:32 Glucagon For Inj 1 Mg Vial IM PRN PRN Hypoglycemia Protocol Glucose 15 gm 10/01/23 20:32 Glucose Oral Gel 15 Gm Of Glucse In 37.5 Gm Tube PO PRN PRN Hypoglycemia Protocol Hydralazine HCl 100 mg 10/02/23 08:00 10/09/23 08:41 Hydralazine Hcl 50 Mg Tablet PO 100 mg TIDWM URIAH Administration Hydralazine HCl 10 mg 10/08/23 09:26 Hydralazine Hcl 20 Mg/Ml Vial IV PUSH Q4H PRN Blood Pressure - High Dextrose 1,000 mls @ 100 mls/hr 10/01/23 20:32 Dextrose 5% 1,000 Ml IVPB PRN PRN Hypoglycemia Protocol Dextrose 1,000 mls @ 0 mls/hr 10/07/23 13:50 10/09/23 06:12 Dextrose 5% 1,000 Ml IV CONT 75 mls/hr .[id number] URIAH Infusion KVO Losartan Potassium 50 mg 10/07/23 09:00 10/09/23 08:42 Losartan Potassium 50 Mg Tablet PO 50 mg DAILY URIAH Administration Miconazole Nitrate 1 applic 10/02/23 05:10 Miconazole Nitrate 2% Cream 30 Gm Tube TOPICAL DAILY PRN Rash Nifedipine 30 mg 10/07/23 09:00 10/09/23 08:41 Nifedipine 30 Mg Tab.Er.24 PO 30 mg QAM URIAH Administration Radiology Results: ITS Impressions Head CT 10/01/23 21:22 IMPRESSION: 1. Multiple old infarcts in the brain. Chest X-Ray 10/01/23 21:25 IMPRESSION: 1. Cardiomegaly. 2. Intrathoracic goiter. Abdomen/Pelvis CT 10/02/23 06:37 IMPRESSION: 1. Di
[2023-10-09 11:34] LABS: Glucose Point of Care 135 mg/dl (65-105)
[2023-10-09 12:48] LABS: Glucose Point of Care 172 mg/dl (65-105)
[2023-10-10] VITALS: BP 187/72; PULSE 48; PULSE 54; RESP 20; TEMP 37.1; O2SAT 100
[2023-10-10] MEDS: hydrALAZINE HCL 20 MG/ML VIAL 10 MG IV PUSH (01:05)
[2023-10-10 02:29] VITALS: BP 181/70
[2023-10-10 04:00] VITALS: PULSE 50
[2023-10-10 05:14] LABS: Basophils Percent Auto 0.4 % (0.2-1.2); Eosinophils Absolute Auto 0.3 K/mm3 (0-0.3); Eosinophils Percent Auto 5.2 % (0-4.4); Hematocrit 28.2 % (42.0-52.0); Hemoglobin 8.9 g/dL (14.0-18.0); Immature Granulocyte Absolute 0.02 K/mm3 (0.00-0.031); Immature Granulocyte Percent A 0.4 % (0-0.5); Lymphocytes Absolute Auto 1.42 K/mm3 (0.9-3.2); Lymphocytes Percent Auto 27.4 % (18.3-44.2); Mean Corpuscular HGB Conc 31.6 g/dl (32-36); Mean Corpuscular Hemoglobin 27.9 pg (26-34); Mean Corpuscular Volume 88.4 fl (80-100); Mean Platelet Volume 12.9 fl (7.4-10.4); Monocytes Absolute Auto 0.7 K/mm3 (0.1-0.6); Monocytes Percent Auto 14.3 % (2.6-8.5); Neutrophils Absolute Auto 2.7 K/mm3 (1.3-6.7); Neutrophils Percent Auto 52.3 % (45.5-73.1); Platelet Count Result 144 k/mm3 (150-375); Red Blood Count 3.19 M/mm3 (4.6-6.20); Red Cell Distribution Width 13.8 % (11.5-14.5); White Blood Count 5.2 K/mm3 (4.5-10.0)
[2023-10-10 05:15] VITALS: BP 174/58
[2023-10-10 05:33] LABS: Alanine Aminotransferase 11 U/L (6-50); Alkaline Phosphatase 68 U/L (38-126); Anion Gap 8 mmol/L (8-16); Aspartate Amino Transferase 24 U/L (17-59); Bilirubin,Total 0.3 mg/dL (0.2-1.3); Blood Urea Nitrogen 64 mg/dL (9-20); Calcium 8.6 mg/dL (8.4-10.2); Carbon Dioxide 23 mmol/L (22-30); Chloride 108 mmol/L (98-107); Estimated CRCL calculation 16 ml/min; Estimated Glomerular Filt Rate 20; Glucose 98 mg/dL (65-110); Phosphorus 5.3 mg/dL (2.5-4.5); Potassium 3.9 mmol/L (3.4-5.0); Sodium 139 mmol/L (137-145)
[2023-10-10 08:00] VITALS: BP 182/65; PULSE 56; PULSE 62; RESP 20; TEMP 37; O2SAT 100
[2023-10-10] MEDS: NIFEdipine 30 MG TAB.ER.24 PO (09:23)
[2023-10-10] MEDS: FERROUS SULFATE 325 MG TABLET DR BY MOUTH (09:23)
[2023-10-10] MEDS: LOSARTAN POTASSIUM 50 MG TABLET PO (09:23)
[2023-10-10] MEDS: hydrALAZINE HCL 50 MG TABLET 100 MG PO (09:23)
[2023-10-10] MEDS: APIXABAN 5 MG TABLET PO (09:24)
[2023-10-10] MEDS: FLUCONAZOLE 100 MG TABLET PO (09:24)
[2023-10-10] MEDS: ATORVASTATIN 20 MG TABLET PO (09:24)
--- NOTE | 2023-10-10 09:40 | P.PNNP_ITS ---
Progress Note: A&P Assessment and Plan (1) LINDSEY (acute kidney injury): Code(s): N17.9 - Acute kidney failure, unspecified Status: Acute Assessment and Plan: * this is resolved , assuming baseline is around 4 * recurrent episodes of dehydration and renal failure can lead to further progression of chronic kidney disease. * He would probably benefit from a G-tube. (2) Chronic kidney disease, stage IV (severe): Code(s): N18.4 - Chronic kidney disease, stage 4 (severe) Status: Chronic Assessment and Plan: * last creatinine available is from April 2023 --> 3.9mg/dl * presumably due to diabetes, hypertension, UTIs, and age-related change (3) Hypernatremia: Code(s): E87.0 - Hyperosmolality and hypernatremia Status: Acute Assessment and Plan: * Resolved * recurrent problems due to poor intake. He is able but just not willing. * the patient does not eat or drink very much. Consider a Gtube? (4) Acute UTI: Code(s): N39.0 - Urinary tract infection, site not specified Status: Acute Assessment and Plan: * urine culture with E.coli * off antibitoics (5) Hypertension: Code(s): I10 - Essential (primary) hypertension Status: Chronic Assessment and Plan: * poor control on admission * resumed on home medications (minus HCTZ) * changed amlodipine to nifedipine xl * Blood pressure reno overnight. Will increase nifedipine to 60 . (6) Insulin dependent diabetes mellitus: Status: Chronic Assessment and Plan: * follow accu-cheks * glycemic control per hospitalists Will continue to follow. Subjective Date/time seen: 10/10/23 09:40 Interval history: Cristofer is feeling okay. Resting in bed comfortably. Denies shortness of breath or pain. Exam Narrative: General: elderly AA male who appears in NAD Heart: normal S1 and S2; no rub or gallop Lungs: clear to auscultation Abdomen: soft, nontender, nondistended, positive bowel sounds Extremities: no cyanosis or clubbing; no edema Skin: No rash Objective Data Vital Signs Vital Signs: Vital Signs - 24 hr 10/09/23 12:00 10/09/23 15:24 10/09/23 16:00 Temperature 97.8 F Pulse Rate 64 53 L 51 L Respiratory Rate 20 Blood Pressure 152/57 H Pulse Oximetry 100 Oxygen Delivery 10/09/23 20:00 10/09/23 20:00 10/10/23 00:00 Temperature 98.8 F Pulse Rate 49 L 54 L Respiratory Rate 20 Blood Pressure 187/72 H Pulse Oximetry 100 Oxygen Delivery Room Air 10/10/23 00:00 10/10/23 02:29 10/10/23 04:00 Temperature Pulse Rate 48 L 50 L Respiratory Rate Blood Pressure 181/70 H Pulse Oximetry Oxygen Delivery 10/10/23 05:15 10/10/23 08:00 Temperature 98.6 F Pulse Rate 56 L Respiratory Rate 20 Blood Pressure 174/58 H 182/65 H Pulse Oximetry 100 Oxygen Delivery Intake/Output Intake/Output: Intake & Output 10/07/23 10/08/23 10/09/23 10/10/23 23:59 23:59 23:59 23:59 Intake Total 0 2780 1382 400 Output Total 120 Balance 0 2780 1382 28
--- NOTE | 2023-10-10 09:40 | PM.PNNEP ---
Progress Note: A&P Assessment and Plan (1) LINDSEY (acute kidney injury): Code(s): N17.9 - Acute kidney failure, unspecified Status: Acute Assessment and Plan: this is resolved , assuming baseline is around 4 recurrent episodes of dehydration and renal failure can lead to further progression of chronic kidney disease. He would probably benefit from a G-tube. (2) Chronic kidney disease, stage IV (severe): Code(s): N18.4 - Chronic kidney disease, stage 4 (severe) Status: Chronic Assessment and Plan: last creatinine available is from April 2023 --> 3.9mg/dl presumably due to diabetes, hypertension, UTIs, and age-related change (3) Hypernatremia: Code(s): E87.0 - Hyperosmolality and hypernatremia Status: Acute Assessment and Plan: Resolved recurrent problems due to poor intake. He is able but just not willing. the patient does not eat or drink very much. Consider a Gtube? (4) Acute UTI: Code(s): N39.0 - Urinary tract infection, site not specified Status: Acute Assessment and Plan: urine culture with E.coli off antibitoics (5) Hypertension: Code(s): I10 - Essential (primary) hypertension Status: Chronic Assessment and Plan: poor control on admission resumed on home medications (minus HCTZ) changed amlodipine to nifedipine xl Blood pressure reno overnight. Will increase nifedipine to 60 . (6) Insulin dependent diabetes mellitus: Status: Chronic Assessment and Plan: follow accu-cheks glycemic control per hospitalists Will continue to follow. Subjective Date/time seen: 10/10/23 09:40 Interval history: Edward is feeling okay. Resting in bed comfortably. Denies shortness of breath or pain. Exam Narrative: General: elderly AA male who appears in NAD Heart: normal S1 and S2; no rub or gallop Lungs: clear to auscultation Abdomen: soft, nontender, nondistended, positive bowel sounds Extremities: no cyanosis or clubbing; no edema Skin: No rash Objective Data Vital Signs Vital Signs: Vital Signs - 24 hr 10/09/23 12:00 10/09/23 15:24 10/09/23 16:00 Temperature 97.8 F Pulse Rate 64 53 L 51 L Respiratory Rate 20 Blood Pressure 152/57 H Pulse Oximetry 100 Oxygen Delivery 10/09/23 20:00 10/09/23 20:00 10/10/23 00:00 Temperature 98.8 F Pulse Rate 49 L 54 L Respiratory Rate 20 Blood Pressure 187/72 H Pulse Oximetry 100 Oxygen Delivery Room Air 10/10/23 00:00 10/10/23 02:29 10/10/23 04:00 Temperature Pulse Rate 48 L 50 L Respiratory Rate Blood Pressure 181/70 H Pulse Oximetry Oxygen Delivery 10/10/23 05:15 10/10/23 08:00 Temperature 98.6 F Pulse Rate 56 L Respiratory Rate 20 Blood Pressure 174/58 H 182/65 H Pulse Oximetry 100 Oxygen Delivery Intake/Output Intake/Output: Intake & Output 10/07/23 10/08/23 10/09/23 10/10/23 23:59 23:59 23:59 23:59 Intake Total 2060 2780 1382 400 Output Total 120 Balance 2059 2780 1382 280 Meds/Results Medications: Active Medications Generic Name Dose Route Start Last Admin Trade Name Freq PRN Reason Stop Dose Admin Apixaban 5 mg 10/04/23 17:00 10/09/23 20:42 Apixaban 5 Mg Tablet PO 5 mg Q12HR URIAH Administration Atorvastatin Calcium 20 mg 10/02/23 09:00 10/09/23 08:40 Atorvastatin 20 Mg Tablet PO 20 mg DAILY URIAH Administration Dextrose 12.5 gm 10/01/23 20:32 10/01/23 21:39 Dextrose 50% 25 Gm/50 Ml Syringe IV PUSH 12.5 gm PRN PRN Administration Hypoglycemia Protocol Ferrous Sulfate 325 mg 10/02/23 09:00 10/09/23 17:50 Ferrous Sulfate [address] BY MOUTH 325 mg BID URIAH Administration Fluconazole 100 mg 10/05/23 09:00 10/09/23 08:42 Fluconazole 100 Mg Tablet PO 100 mg QAM URIAH Administration Glucagon 1 mg 10/01/23 20:32 Glucagon For Inj 1 Mg Vial IM PRN PRN
--- NOTE | 2023-10-10 10:33 | PM.DS ---
DS: Admitting Diagnosis Discharge Date October 10, 2023 Admitting Diagnosis Hypernatremia DS: Discharge Diagnosis Discharge Diagnosis (1) Dementia: Code(s): F03.90 - Unspecified dementia, unspecified severity, without behavioral disturbance, psychotic disturbance, mood disturbance, and anxiety Status: Acute (2) Acute UTI: Code(s): N39.0 - Urinary tract infection, site not specified Status: Acute (3) Acute kidney injury superimposed on CKD: Code(s): N17.9 - Acute kidney failure, unspecified; N18.9 - Chronic kidney disease, unspecified Status: Acute (4) Hypoglycemia: Code(s): E16.2 - Hypoglycemia, unspecified Status: Acute (5) Acute hypernatremia: Code(s): E87.0 - Hyperosmolality and hypernatremia Status: Acute (6) Elevated troponin: Code(s): R79.89 - Other specified abnormal findings of blood chemistry Status: Acute (7) Hypertension: Code(s): I10 - Essential (primary) hypertension Status: Chronic (8) Altered mental status: Qualifiers: Altered mental status type: unspecified Qualified Code(s): R41.82 - Altered mental status, unspecified Code(s): R41.82 - Altered mental status, unspecified Status: Acute (9) Insulin dependent diabetes mellitus: Status: Chronic (10) A-fib: Code(s): I48.91 - Unspecified atrial fibrillation Status: Acute DS: Summary Hospital Course Hospital Course: 72-year-old gentleman [facility] a [facility] was brought to the ER for fall. Hiis blood sugar was checked in the facility and found to be 46, EMS was called.? History severely limited as patient is unable to provide details.? In the ER showed that patient has LINDSEY with BUN of 107, creatinine of 5.08 and GFR of 12, Na 155, has mildly elevated troponin, also has leukocytosis with mild anemia (hgb 9.1).? CT scan of the head showed multiple old infarcts of the brain, with chest x-ray showing cardiomegaly and goiter. EKG unremarkable. He was treated with D10 and IV hypotonic fluids. He was noted also to have chronically low platelets [id number] at discharge. Creatinine improved to 3.70 by discharge. He was treated for ESBL E coli UTI found at admission with meropenem. He tolerated this well. He remained somewhat withdrawn and minimally verbal with unintelligible speech. He tolerated pureed diet with thickened liquids. Blood sugars range from the 1 teens to 180s. His Levemir was held. He continued on sliding scale only as his oral intake was fair to poor sporadic. Status at Discharge Overall status at discharge: patient is progressing back to baseline Time Spent with Patient Time attestation: Total time spent providing and/or coordinating discharge services: Exam Narrative: General: Elderly gentleman lying in hospital bed. No acute distress. HEENT: Sclerae nonicteric. Mucous membranes moist. Neck: No JVD. Chest: Clear to auscultation. Normal effort. Heart: Normal S1 and S2. Regular rate. No audible murmurs. Extremities: No edema. Abdomen: Bowel sounds present, soft, no palpable masses, no obvious tenderness. Musculoskeletal: Mild to moderate flexion contractures of both knees. Neurologic: Mild left facial droop. Generalized weakness difficult to assess for focal deficits due to his inability to follow commands. Psychiatric: Drowsy. Arouses easily. Does not follow commands or cooperate with exam. DS: Data Data Completed and Pending Labs on day of discharge: Labs from last 24 hours 10/10/23 10/09/23 10/09/23 04:37 12:45 08:15 WBC 5.2 RBC 3.19 L Hgb 8.9 L Hct 28.2 L MCV 88.4 MCH 27.9 MCHC 31.6 L RDW 13.8 Plt Count 144 L MPV 12.9 H Immature Gran % (Auto) 0.4 Neut % (Auto) 52.3 Lymph % (Auto) 27.4 [place] % (Auto) 14.3 H Eos % (Auto) 5.2 H Baso % (Auto) 0.4 Lymph # (Auto) 1.42 [place] # (Auto) 0.7 H Eos # (Auto) 0.3 Baso #
[2023-10-10 12:03] LABS: SARS-CoV-2 RNA PCR Negative (Negative)
== END 2023-10-10 12:00 | DRG 682 ==
LOC: ANHED 10-02 00:34 → ANHIMU 10-02 01:05
PROVIDERS: General Practice; Hospitalist; Internal Medicine Nephrology; Admitting Provider Student in an Organized Health Care Education/Training Program; Emergency Provider Physician Assistant; PCP Internal Medicine; Visit Provider Internal Medicine
DX: N17.9 Acute kidney failure, unspecified (principal); E43 Unspecified severe protein-calorie malnutrition; I21.A1 Myocardial infarction type 2; N39.0 Urinary tract infection, site not specified; E87.0 Hyperosmolality and hypernatremia; I45.89 Other specified conduction disorders; B37.0 Candidal stomatitis; Z16.12 Extended spectrum beta lactamase (ESBL) resistance; I12.9 Hypertensive chronic kidney disease with stage 1 through stage 4 chronic kidney disease, or unspecified chronic kidney disease; N18.4 Chronic kidney disease, stage 4 (severe); E11.649 Type 2 diabetes mellitus with hypoglycemia without coma; E11.22 Type 2 diabetes mellitus with diabetic chronic kidney disease; E86.0 Dehydration; F03.90 Unspecified dementia, unspecified severity, without behavioral disturbance, psychotic disturbance, mood disturbance, and anxiety; I69.322 Dysarthria following cerebral infarction; I48.91 Unspecified atrial fibrillation; R62.7 Adult failure to thrive; D64.9 Anemia, unspecified; B96.20 Unspecified Escherichia coli [E. coli] as the cause of diseases classified elsewhere; Z79.4 Long term (current) use of insulin; Z68.21 Body mass index [BMI] 21.0-21.9, adult; Z79.01 Long term (current) use of anticoagulants; Z11.52 Encounter for screening for COVID-19
CPT/HCPCS: 36415; 70450; 71045; 74176; 76775; 80048; 80053; 80069; 81001; 82550; 82570; 82728; 82948; 83540; 83550; 83605; 83735; 83880; 84100; 84156; 84300; 84443; 84484; 84540; 85025; 85055; 87086; 87186; 87635; 92610; 93005; 96365; 96366; 96367; 96375; 96376; 99285; A9270; G0378; J0360; J0456; J0696; J1450; J1815; J2185; J3475; J7030; J7050; J7060; J7070

== ENCOUNTER 2024-07-01 22:22 | Inpatient (IN) | payer MEDICARE, MEDICAID, SELFPAY ==
--- NOTE | ~2024-07-01 | US_ITS ---
EXAMINATION: US renal BI DATE: 07/02/2024 11:46 INDICATION: Acute renal failure. TECHNIQUE: Multiple ultrasound grayscale images of the kidneys were obtained. COMPARISON: CT abdomen and pelvis 10/02/2023 FINDINGS: The right kidney measures 9.5 x 6.0 x 5.3 cm cm. The left kidney was not evaluated due to the patient 's position. The right kidney demonstrates normal parenchymal echogenicity. There is no hydronephrosi s. The bladder was not evaluated. IMPRESSION: 1. Normal right kidney. 2. Left kidney and bladder not evaluated. Reviewed, dictated and finalized at location A.
--- NOTE | ~2024-07-01 | XR_ITS ---
EXAMINATION: XR abdomen/kub 1V DATE: 07/06/2024 16:35 INDICATION: Nausea and vomiting. TECHNIQUE: A supine view of the abdomen was obtained. COMPARISON: CT abdomen pelvis 10/02/2023 FINDINGS: There are no dilated loops of bowel. There is a small volume of stool in the colon. A travis ter overlies the bladder. IMPRESSION: 1. Normal bowel gas pattern. Reviewed, dictated and finalized at location B.
--- NOTE | ~2024-07-01 | XR_ITS ---
MODIFIED ESOPHAGRAM HISTORY: Aspiration TECHNIQUE: Modified barium esophagram was performed on 07/07/2024. I administered fluoroscopy and perf ormed the exam with speech pathologist. Patient was seated for lateral fluoroscopic imaging for fabi stion of thin liquids, pudding, solids and quantified amounts, followed by thin liquids in uncontroll ed amounts. This was recorded on tape. A single fluoroscopic spot image was also recorded. The DAP fo r this procedure was 2.249 Gycm2. The amount of fluoroscopy time used during this procedure was 2.2 m inutes. FINDINGS: Oral stage: Adequate function. Pharyngeal stage: Reduced laryngeal elevation and adduction. Reduced tongue base retraction. There is laryngeal penetration and aspiration with thin liquids, mildly thickened liquids and pudding consist encies. Cervical/esophageal stage: Adequate function. IMPRESSION: Pharyngeal dysphagia with laryngeal penetration and aspiration with multiple consistencie s. Please correlate with speech pathologist findings and specific feeding recommendations. Reviewed, dictated and finalized at location A. IMPRESSION: Pharyngeal dysphagia with laryngeal penetration and aspiration with multiple consistencies. Please correlate with speech pathologist findings and specific feeding recommendations.
--- NOTE | ~2024-07-01 | CT_ITS ---
EXAMINATION: CT brain wo con DATE: 07/02/2024 00:11 INDICATION: Altered mental status. TECHNIQUE: Computed tomography (CT) of the head was performed without intravenous contrast. The mA wa s adjusted according to patient size. Iterative reconstruction technique was employed. The dose-lengt h product was 756.67 mGy-cm. 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 There are old infarcts in the bilateral basal ganglia and left thalamus. There is an old infarct involving left frontal temporal pa rietal occipital region and left insula. There is no intracranial hemorrhage, acute infarction, or ab normal intracranial mass lesion. There are scattered areas of low attenuation in the cerebral white m atter, likely chronic small vessel ischemic disease. There is ex vacuo dilatation of left lateral radha tricle. The orbits are normal. There is mild mucosal thickening in the ethmoid sinuses. There is near complete opacification of left maxillary sinus. The mastoid air cells are normal. IMPRESSION: 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 Reviewed, dictated and finalized at location A.
[2024-07-01 22:55] VITALS: BP 147/48; PULSE 70; RESP 18; TEMP 36.8; O2SAT 98
--- NOTE | 2024-07-01 23:38 | ED.RECABL ---
HPI - Recheck/Abnormal Lab/Rx General Chief Complaint: Recheck/Abnormal Lab/Rx Stated Complaint: ABNORMAL LABS AT FACILITY Time Seen by Provider: 07/01/24 22:55 History of Present Illness HPI narrative: 73-year-old male with a past medical history significant for stage 4 chronic kidney disease, atrial fibrillation, dementia, insulin-dependent diabetes. He presents from his [facility] facility for recheck of abnormal labs. He had elevated BUN and creatinine from his baseline according to the correction report. Patient is not on dialysis and has no dialysis access this time. He is alert oriented to his name only and that is his baseline mentation. No injuries or trauma, recent illnesses. Patient has been seen here several times in the past by our nephrology team and recently admitted in October of this year. Patient himself is not able to provide additional collateral history given his mental status. Related Data Home Medications Medication Instructions Recorded Confirmed atorvastatin 20 mg tablet 20 mg PO DAILY 04/28/23 10/02/23 clonidine 0.3 mg/24 hr weekly 0.3 mg transdermal DAILY 04/28/23 10/02/23 transdermal patch glucagon 1 mg solution for 1 mg IM PRN PRN Hypoglycemia 04/28/23 10/02/23 injection (Glucagon Emergency Kit) hydrochlorothiazide 25 mg tablet 25 mg PO TID 04/28/23 10/02/23 insulin regular human 100 unit/mL 3 - 9 sliding scale dose subcut 04/28/23 10/02/23 injection solution (Novolin R PRN PRN Hyperglycemia Regular U-100 Insulin) acetaminophen 325 mg tablet 650 mg PO Q6H PRN Pain 10/02/23 10/02/23 ferrous sulfate 325 mg (65 mg 325 mg PO BID 10/02/23 10/02/23 iron) tablet miconazole nitrate 2 % topical 1 applic topical DAILY PRN Rash 10/02/23 10/02/23 cream (Antifungal Extra Thick) Allergies Allergy/AdvReac Type Severity Reaction Status Date / Time No Known Allergies Allergy Verified 05/19/24 11:12 Review of Systems Review of Systems: ROS unobtainable: Yes unobtainable due to medical condition and unobtainable due to mental status PMFSH Past Medical History Medical History A-fib Dementia Hypertension Insulin dependent diabetes mellitus Family History Family History Other Unknown family medical history Social History Social History (System 05/19/24 @ 11:12 by Joe Ramesh) Smoking status: Unknown if ever smoked Second hand tobacco smoke exposure: No Alcohol intake: unknown Substance use: unknown Substance use type: unknown Spiritual care concerns: No Exam Narrative: GENERAL: Overall well-appearing not in any acute distress, alert to patient's name and follows commands. HEAD: [Normocephalic, atraumatic.] EYES: [PERRLA and EOMI.] ENT: Nares clear, no rhinorrhea or epistaxis. Mucous membranes dry. NECK: Supple. CHEST: [Clear to auscultation. No respiratory distress.] HEART: [Regular rate and rhythm]. No murmur heard. [Normal peripheral pulses.] ABDOMEN: [Soft, nondistended], [nontender], [No rigidity or guarding] EXTREMITIES: Normal range of motion. [No edema.] SKIN: Warm, dry, no rash. NEURO: [No focal deficits]. Moves all extremities spontaneously, alert x1 to name only. Follows commands easily. PSYCH: [Normal mood and affect.] Course Vital Signs Vital signs: Vital Signs Temperature 36.8 C 07/01/24 22:55 Pulse Rate 70 07/01/24 22:55 Respiratory Rate 18 07/01/24 22:55 Blood Pressure 147/48 H 07/01/24 22:55 Pulse Oximetry 98 07/01/24 22:55 Oxygen Delivery Room Air 07/01/24 22:55 Temperature 36.8 C 07/01/24 22:55 Pulse Rate 70 07/01/24 22:55 Respiratory Rate 18 07/01/24 22:55 Blood Pressure 147/48 H 07/01/24 22:55 Pulse Oximetry 98 07/01/24 22:55 Oxygen Delivery Room Air 07/01/24 22:55 MDM - Recheck/Abnormal Lab/Rx MDM Narrative Medical decision making narrative: 73-year-old male with history of dementia, stage 4 chronic kidney disease not on dialysis, atrial fibrillation on Eliquis. Presents to the emergency department for evaluation of abnormal laboratory studies obtained by patient's correction. He had an elevated BUN and creatinine. He has a baseline of severe creatinine disease. Does not appear particularly dehydrated otherwise appears in his normal state of health. He has as baseline mentation which is x1. Stable hypertension but no tachycardia, tachypnea, fever or hypoxia. No abdominal pain or tenderness. Overall appears in his stated baseline health. Will redraw laboratory studies and obtain a urinalysis. A CT scan of the head was also obtained given that he is on Eliquis and not able to provide any salient details however he does appear at his baseline mentation. Patient's workup revealed marked derangements including a sodium of 163, chloride 119, BUN of 199 and creatinine of 12.8. All markedly elevated from his previous baseline and likely indicative of severe intravascular volume depletion. He has a calculated free water deficit of 2.4 L. He was given additional L of fluid here in the emergency department. GFR estimated at 5. Normal hepatic function panel. No leukocytosis or anemia. He has a potassium 4.[address] head was obtained which showed no hemorrhage hydrocephalus mass effect or herniation. I independently reviewed the images and this was interpreted by Radiology via statrad. Given patient's marked renal failure, dehydration, and significant elevated uremia I believe he would be a potential candidate for hemodialysis so we consulted Nephrology for assistance. Spoke to Dr. Zhang from the Nephrology Service who recommended admission to the hospital and he will evaluate him for candidacy for dialysis but no emergent need at this time. Lan catheter was inserted with return of about 100 cc of clear fluid. Urinary tract infection was identified and his previous cultures states it is resistant to several antigen so he was started on renal dosed meropenem 500 mg q24 hours. Spoke to the hospitalist Dr. Plasencia after we went over the patient's imaging studies, physical exam, technical services consultant's recommendations, and plan of care accepted the patient to the IMU at this time onto a telemetry monitored bed. Medical Records Attestation: I reviewed the patient's medical records. Lab Data Attestation: I reviewed the patient's lab results. 07/01/24 23:45 07/01/24 23:45 Labs: Lab Results 07/01/24 Range/Units 23:45 WBC 8.7 (4.5-10.0) K/mm3 RBC 2.93 L (4.6-6.20) M/mm3 Hgb 8.9 L (14.0-18.0) g/dL Hct 29.4 L (42.0-52.0) % MCV 100.3 H (80-100) fl MCH 30.4 (26-34) pg MCHC 30.3 L (32-36) g/dl RDW 13.4 (11.5-14.5) % Plt Count 171 (150-375) k/mm3 MPV 12.4 H (7.4-10.4) fl Immature Gran % (Auto) 0.5 (0-0.5) % Neut % (Auto) 76.7 H (45.5-73.1) % Lymph % (Auto) 11.0 L (18.3-44.2) % [place] % (Auto) 9.2 H (2.6-8.5) % Eos % (Auto) 2.3 (0-4.4) % Baso % (Auto) 0.3 (0.2-1.2) % Lymph # (Auto) 0.96 (0.9-3.2) K/mm3 [place] # (Auto) 0.8 H (0.1-0.6) K/mm3 Eos # (Auto) 0.2 (0-0.3) K/mm3 Baso # (Auto) 0.0 (0.0-0.1) K/mm3 Abs Immat Gran (auto) 0.04 H (0.00-0.031) K/mm3 Absolute Neuts (auto) 6.7 (1.3-6.7) K/mm3 Absolute Nucleated RBC 0.000 (0.0-0.012) K/mm3 Nucleated RBC % 0.0 (0.0-0.2) % Sodium 163 H* (137-145) mmol/L Potassium 4.6 (3.4-5.0) mmol/L Chloride 119 H (98-107) mmol/L Carbon Dioxide 25 (22-30) mmol/L Anion Gap 19 H (4-12) mmol/L BUN 199 H D (9-20) mg/dL Creatinine 12.80 H (0.7-1.3) mg/dL Estim Creat Clear Calc 4 ml/min Estimated GFR 5 L (59 - ) Glucose 122 H (65-110) mg/dL Calcium 9.2 (8.4-10.2) mg/dL Total Bilirubin 0.5 (0.2-1.3) mg/dL AST 25 (17-59) U/L ALT 15 (6-50) U/L Alkaline Phosphatase 66 (38-126) U/L Total Protein 8.0 (6.3-8.2) g/dL Albumin 4.0 (3.5-5.1) g/dL Lipase 88 (23-300) U/L Urine Color Yellow (Yellow) Urine Appearance Cloudy H (Clear) Urine pH 7.5 (5.0-9.0) Ur Specific [place] 1.013 (1.001-1.035) Urine Protein 2+ H (Negative) mg/dL Urine Glucose (UA) Negative (Negative) mg/dL Urine Ketones Negative (Negative) mg/dL Ur Blood (Man) Trace (Negative) Urine Nitrate Negative (Negative) Urine Bilirubin Negative (Negative) Urine Urobilinogen 0.2 (<2.0) mg/dL Leukocyte Esterase Rfl 3+ H (Negative) IKE/UL Urine RBC 11-20 H (0-2) /hpf Urine WBC >100 H (0-3) /hpf Ur Squamous Epith Cells None seen (Few) /hpf Urine Bacteria 3+ H /hpf Urine Casts 0-2 Critical Care Time Critical Care Time Critical Care Time: Yes Total Critical Care Time: 35 Discharge Plan Discharge Clinical Impression: Renal failure (ARF), acute on chronic, Acute UTI, Acute uremia Patient Disposition: Still a Patient Condition: Stable Prescriptions: No Action atorvastatin 20 mg tablet 20 mg PO DAILY Novolin R Regular U100 Insulin 100 unit/mL solution 3 - 9 sliding scale dose subcut PRN PRN (Reason: Hyperglycemia) Rx Instructions: if BS <80 call MD if BS 151-200 give 3 units if BS 201-250 give 5 units if BS 251-300 give 7 units if BS 301-350 give 9 units if BS >350 call MD clonidine 0.3 mg/24 hr patch weekly 0.3 mg transdermal DAILY Rx Instructions: wednesday hydrochlorothiazide 25 mg tablet 25 mg PO TID Glucagon Emergency Kit (human) 1 mg recon soln 1 mg IM PRN PRN (Reason: Hypoglycemia) hydralazine 50 mg Tablet 100 mg PO TID Qty: 90 0RF ferrous sulfate 325 mg (65 mg iron) Tablet 325 mg PO BID acetaminophen 325 mg Tablet 650 mg PO Q6H PRN (Reason: Pain) miconazole nitrate [Antifungal Extra Thick] 2 % Cream 1 applic TOPICAL DAILY PRN (Reason: Rash) Rx Instructions: apply to left palm and fingers Eliquis 5 mg Tablet 5 mg PO Q12HR Qty: 14 0RF losartan [Cozaar] 50 mg Tablet 50 mg PO DAILY Qty: 7 0RF nifedipine [Procardia XL] 30 mg Tablet Extended Release 24hr 60 mg PO QAM Qty: 14 0RF dextrose [Glutose-15] 40 % Gel 15 g PO PRN PRN (Reason: Hypoglycemia) Qty: 10 0RF Follow-up/Referrals: Allison,MD Deacon [Primary Care Provider] - Time of Disposition: 02:33
[2024-07-01 23:52] LABS: Basophils Percent Auto 0.3 % (0.2-1.2); Eosinophils Absolute Auto 0.2 K/mm3 (0-0.3); Eosinophils Percent Auto 2.3 % (0-4.4); Hematocrit 29.4 % (42.0-52.0); Hemoglobin 8.9 g/dL (14.0-18.0); Immature Granulocyte Absolute 0.04 K/mm3 (0.00-0.031); Immature Granulocyte Percent A 0.5 % (0-0.5); Lymphocytes Absolute Auto 0.96 K/mm3 (0.9-3.2); Mean Corpuscular HGB Conc 30.3 g/dl (32-36); Mean Corpuscular Hemoglobin 30.4 pg (26-34); Mean Corpuscular Volume 100.3 fl (80-100); Mean Platelet Volume 12.4 fl (7.4-10.4); Monocytes Absolute Auto 0.8 K/mm3 (0.1-0.6); Monocytes Percent Auto 9.2 % (2.6-8.5); Neutrophils Absolute Auto 6.7 K/mm3 (1.3-6.7); Neutrophils Percent Auto 76.7 % (45.5-73.1); Platelet Count Result 171 k/mm3 (150-375); Red Blood Count 2.93 M/mm3 (4.6-6.20); Red Cell Distribution Width 13.4 % (11.5-14.5); White Blood Count 8.7 K/mm3 (4.5-10.0)
[2024-07-02] VITALS (14 sets, daily range): BP systolic 115–171; BP diastolic 57–92; PULSE 44–77; RESP 16–28; TEMP 36.3–37.3; O2SAT 97–100; BMI 19.5
[2024-07-02] LABS: Add Urine Microscopic? YES; Appearance Urine Cloudy (Clear); Bacteria Urine 3+ /hpf; Bilirubin Urine Negative (Negative); Blood Urine Trace (Negative); Color Urine Yellow (Yellow); Glucose Urine UA Negative (Negative); Ketones Urine Negative (Negative); Leukocyte Esterase Ur 3+ LEU/UL (Negative); Nitrate Urine Negative (Negative); Non Pathogenic Casts 0-2; Protein Urine 2+ mg/dL (Negative); Specific Grav Ur 1.013 (1.001-1.035); Squamous Epithelial Cell Urine None Seen /hpf (Few); Urobilinogen Urine 0.2 mg/dL (<2.0); WBC Urine >100 /hpf (0-3); pH Urine 7.5 (5.0-9.0)
[2024-07-02] MEDS: LACTATED RINGERS 1,000 ML 999 ML IV CONT ×2 (00:10→00:47)
[2024-07-02 00:39] LABS: Alanine Aminotransferase 15 U/L (6-50); Alkaline Phosphatase 66 U/L (38-126); Anion Gap 19 mmol/L (4-12); Aspartate Amino Transferase 25 U/L (17-59); Bilirubin,Total 0.5 mg/dL (0.2-1.3); Calcium 9.2 mg/dL (8.4-10.2); Carbon Dioxide 25 mmol/L (22-30); Chloride 119 mmol/L (98-107); Estimated CRCL calculation 4 ml/min; Estimated Glomerular Filt Rate 5; Glucose 122 mg/dL (65-110); Lipase 88 U/L (23-300); Potassium 4.6 mmol/L (3.4-5.0); Sodium 163 mmol/L (137-145)
[2024-07-02 00:48] LABS: Blood Urea Nitrogen 199 mg/dL (9-20)
--- NOTE | 2024-07-02 01:25 | PC.NURSE ---
patient is laying on ER stretcher. per MD patient needs a roth catheter placed.
--- NOTE | 2024-07-02 02:10 | PC.NURSE ---
roth placed, coude. patient tolerated well. MD made aware of placement and void output. 100cc
--- NOTE | 2024-07-02 02:58 | PC.NURSE ---
called to give report on patient to imu. they state they will call back in 5 minutes.
[2024-07-02 03:16] LABS: Creatinine Urine 76.4 mg/dL
[2024-07-02 03:22] LABS: Sodium Urine Random 80 meq/L
--- NOTE | 2024-07-02 03:45 | ADMGEN ---
This patient, Cristofer Bryant, was admitted to IMU Room 207-01 on 07/02/24 at 0330. Patient/family oriented to hospital policies and general routines including ID bracelet, bed and alarms, visiting hours, pain management, procedures, bathroom and other care routines, personal items, smoking policy, room service/diet, and visiting hours. Information on how to activate the Rapid Response Team has been discussed. Patient/Family are encouraged to report perceived risks to care and to ask questions if they do not understand what they are told or what they should do.
[2024-07-02 03:48] LABS: INR 1.2; Prothrombin Time 15.4 Seconds (11.1-14.7)
[2024-07-02 04:31] LABS: Eosinophil Urine Rare % (None Seen); Urine Eos QC 2nd Tech Confirmed
[2024-07-02] MEDS: LACTATED RINGERS 1,000 ML 75 ML IV CONT (04:32)
[2024-07-02] MEDS: MEROPENEM 500 MG/NS 100 ML 500 MG/100 ML BAG 200 MG IVPB (04:33)
--- NOTE | 2024-07-02 04:46 | PC.NURSE ---
[id number] Spoke with Ravi from [facility] [place]. Fax number for [facility] IMU provided - Ravi agreed to fax medication list.
[2024-07-02 05:10] LABS: Lactic Acid Reflex 1.3 mmol/L (0.7-2.0)
[2024-07-02 05:14] LABS: Anion Gap 16 mmol/L (4-12); Calcium 8.8 mg/dL (8.4-10.2); Carbon Dioxide 22 mmol/L (22-30); Chloride 122 mmol/L (98-107); Estimated CRCL calculation 4 ml/min; Estimated Glomerular Filt Rate 5; Glucose 94 mg/dL (65-110); Potassium 4.1 mmol/L (3.4-5.0); Sodium 160 mmol/L (137-145)
[2024-07-02 05:38] LABS: Blood Urea Nitrogen 191 mg/dL (9-20)
--- NOTE | 2024-07-02 05:57 | P.HP_ITS ---
H&P: HPI History of Present Illness Date/Time: 07/02/24 05:57 Chief Complaint: Abnormal labs Narrative: History is taken from chart review on verbal communication from ER physician. Patient has dementia and is nonverbal at baseline. He is brought in from nursing facility. 73-year-old male with a history of atrial fibrillation on Eliquis, hypertension, dementia, nonverbal, insulin-dependent diabetes mellitus, history of UTI, CKD stage IV. [facility] labs. Reports he had a elevated BUN and creatinine from his normal. He is not on dialysis. No other history able to be obtained. [facility] ER evaluation on 07/01/2024 demonstrated a BUN of 199, serum creatinine 12.8 and a remarkable sodium of 163. CT head brain performed in ER with preliminary report no acute findings. Dry mucous membranes. He was given 3 L lactated Ringer's, ceftriaxone and then meropenem. Lan catheter inserted with return of about 100 cc of urine. Urinalysis abnormal. Nephrology consulted from ER. Admitted under the hospitalist service on 07/02/2024. Review of Systems Review of Systems: All systems reviewed & are unremarkable except as noted in HPI and below (Subjective) [facility] Past Medical History Medical History A-fib Dementia Hypertension Insulin dependent diabetes mellitus Family History Family History Other Unknown family medical history Social History Social History (System 05/19/24 @ 11:12 by Joe Ramesh) Smoking status: Unknown if ever smoked Second hand tobacco smoke exposure: No Alcohol intake: unknown Substance use: unknown Substance use type: unknown Spiritual care concerns: No Meds Home Medications and Allergies Home Medications Medication Instructions Recorded Confirmed Type atorvastatin 20 mg tablet 20 mg PO DAILY 04/28/23 07/02/24 History clonidine 0.3 mg/24 hr weekly 0.3 mg transdermal DAILY 04/28/23 07/02/24 History transdermal patch glucagon 1 mg solution for 1 mg IM PRN PRN Hypoglycemia 04/28/23 07/02/24 History injection (Glucagon Emergency Kit) hydrochlorothiazide 25 mg tablet 25 mg PO TID 04/28/23 07/02/24 History hydralazine 50 mg tablet 100 mg PO TID #90 tabs 05/02/23 07/02/24 Rx acetaminophen 325 mg tablet 650 mg PO Q6H PRN Pain (Scale 10/02/23 07/02/24 History Score 1-3) ferrous sulfate 325 mg (65 mg 325 mg PO BID 10/02/23 07/02/24 History iron) tablet dextrose 40 % oral gel (Glutose-15) 15 g PO PRN PRN Hypoglycemia #10 10/10/23 07/02/24 Rx grams ascorbic acid (vitamin C) 1,000 mg 1 g PO DAILY 07/02/24 07/02/24 History tablet docosahexaenoic acid (dha)-epa 120 1 cap PO DAILY 07/02/24 07/02/24 History mg-180 mg capsule furosemide 20 mg tablet 20 mg PO DAILY 07/02/24 07/02/24 History insulin glargine-yfgn 100 unit/mL 40 unit subcut HS 07/02/24 07/02/24 History (3 mL) subcutaneous pen insulin regular human 100 unit/mL sliding scale dose subcut ACHS 07/02/24 History injection solution (Humulin R Regular U-100 Insulin) Allergies Allergy/AdvReac Type Severity Reaction Status Date / Time No Known Allergies Allergy Verified 05/19/24 11:12 Vital Signs Vital Signs - 24 hr 07/01/24 22:55 07/02/24 02:30 07/02/24 03:35 Temperature 98.2 F 97.4 F L Pulse Rate 70 74 46 L Respiratory Rate 18 18 16 Blood Pressure 147/48 H 124/74 171/63 H Pulse Oximetry 98 98 100 Oxygen Delivery Room Air Exam Const: General: comfortable and no acute distress Other: Nonverbal. Does not follow commands HENMT: Mouth: Yes dry mucous membranes Eyes: Pupils: Equal, round and reactive pupils present Neck: Neck: supple Resp: Effort & Inspection: normal respiratory effort Auscultation: clear to auscultation bilaterally Cardio: Rate: regular rate Rhythm: regular rhythm GI: GI Palp: Yes Soft to palpation and No Tenderness to palpation present (GI) Neuro: Other: Limited participation Extrem: General: no edema H&P: Results Labs Labs: Short CBC 07/01/24 Range/Units 23:45 WBC 8.7 (4.5-10.0) K/mm3 Hgb 8.9 L (14.0-18.0) g/dL Hct 29.4 L (42.0-52.0) % Plt Count 171 (150-375) k/mm3 BMP 07/01/24 07/02/24 23:45 04:48 Sodium 163 H* 160 H Potassium 4.6 4.1 Chloride 119 H 122 H Carbon Dioxide 25 22 BUN 199 H D 191 H Creatinine 12.80 H 11.80 H Glucose 122 H 94 Calcium 9.2 8.8 Liver Function 07/01/24 Range/Units 23:45 Total Bilirubin 0.5 (0.2-1.3) mg/dL AST 25 (17-59) U/L ALT 15 (6-50) U/L Alkaline Phosphatase 66 (38-126) U/L Albumin 4.0 (3.5-5.1) g/dL Urine 07/01/24 Range/Units 23:45 Urine Color Yellow (Yellow) Urine Appearance Cloudy H (Clear) Urine pH 7.5 (5.0-9.0) Ur Specific [place] 1.013 (1.001-1.035) Urine Protein 2+ H (Negative) mg/dL Urine Glucose (UA) Negative (Negative) mg/dL Assessment and Plan Assessment and plan (1) Acute UTI: Code(s): N39.0 - Urinary tract infection, site not specified Status: Acute (2) Acute uremia: Code(s): N19 - Unspecified kidney failure Status: Acute (3) Hypernatremia: Code(s): E87.0 - Hyperosmolality and hypernatremia Status: Acute (4) Chronic kidney disease, stage IV (severe): Code(s): N18.4 - Chronic kidney disease, stage 4 (severe) Status: Chronic (5) Renal failure (ARF), acute on chronic: Code(s): N17.9 - Acute kidney failure, unspecified; N18.9 - Chronic kidney disease, unspecified Status: Acute (6) A-fib: Code(s): I48.91 - Unspecified atrial fibrillation Status: Acute (7) Hypertension: Code(s): I10 - Essential (primary) hypertension Status: Chronic (8) Insulin dependent diabetes mellitus: Status: Chronic (9) Dementia: Code(s): F03.90 - Unspecified dementia, unspecified severity, without behavioral disturbance, psychotic disturbance, mood disturbance, and anxiety Status: Acute Plan History is taken from chart review on verbal communication from ER physician. Patient has dementia and is nonverbal at baseline. He is brought in from nursing facility. 73-year-old male with a history of atrial fibrillation on Eliquis, hypertension, dementia, nonverbal, insulin-dependent d iabetes mellitus, history of UTI, CKD stage IV. [facility] with report of abnormal labs. Reports he had a elevated BUN and creatinine from his normal. He is not on dialysis. No other history able to be obtained. [facility] ER evaluation on 07/01/2024 demonstrated a BUN of 199, serum creatinine 12.8 and a remarkable sodium of 163. CT head brain performed in ER with preliminary report no acute findings. Dry mucous membranes. He was given 3 L lactated Ringer's, ceftriaxone and then meropenem. Lan catheter inserted with return of about 100 cc of urine. Urinalysis abnormal. Nephrology consulted from ER. Admitted under the hospitalist service on 07/02/2024. ----- The patient has LINDSEY superimposed on CKD. Serum creatinine down to 11.8 from 12.8, BUN 191 from 199 status post 3 L lactated Ringer's. Sodium improved from 163-160. Etiology of LINDSEY likely due to hypovolemia. The patient is on hydrochlorothiazide and furosemide [facility] apparently. These have been held. Urine lytes have been drawn. Renal ultrasound pending. The patient has an abnormal urinalysis will treat as UTI. He is unable to endorse any symptoms. This could be causing ATN as well. He had E coli ESBL before. He was given ceftriaxone in the ER but followed by meropenem. Continue meropenem. Renal dose. Last admission he was treated with meropenem succe ssfully. Nephrology consultation pending. Lan catheter inserted on admission in the ER. He has been making adequate urine still. Continue to monitor. Daily weights and strict intake/output. As for hypernatremia, the last value we have is from October 2023 on his last admission. It is unable to be determined whether this is acute, subacute or chronic in nature. Improvement from 163-160 is acceptable. Will continue with half-normal saline at 100 cc and recheck BMP in 4 hours. Consult Nephrology for further assistance. Urine and serum osmolality pending. Hypertension. Currently uncontrolled with blood pressure 171/63. Holding [employer] hydrochlorothiazide, Lasix, hydralazine. Continue [employer] clonidine patch 0.3 mg daily. Insulin-dependent diabetes mellitus. Accu-Cheks a.c. HS with no sliding scale. Advise nursing team to contact on-call physician for blood sugar greater than 200 for p.r.n. insulin in the setting of acute renal failure and severely decreased GFR. Atrial fibrillation. Currently sinus rhythm. Unclear if the patient is on Eliquis or not. ----- SCDs. Half-normal saline at 100 cc/hour. Renal dialysis diet. Nephrology consultation. Strict intake/output, daily weights. Full code by default. Unclear who the guardian is. Investigation ongoing. Hospitalist MIPS Advance Care Plan I have confirmed that the patient's Advanced Care Plan is present, code status is documented, or surrogate decision maker is listed in patient medical record.: Yes Medication Reconciliation I have utilized all available resources to obtain, update and review the patients current medications (includes all prescriptions, OTC, herbals, cannabis, and nutritional supplements).: Yes
[2024-07-02] MEDS: SODIUM CHLORIDE 0.45% 1,000 ML 100 ML IV CONT ×2 (06:25→16:54)
[2024-07-02 07:50] LABS: Glucose Point of Care 86 mg/dl (65-105)
--- NOTE | 2024-07-02 08:18 | PM.CNNEP ---
Assessment and Plan Assessment and plan (1) Hypernatremia: Code(s): E87.0 - Hyperosmolality and hypernatremia Status: Acute Assessment and Plan: The patient's sodium level is high. The patient needs help eating and drinking. I suspect that he is not eating and drinking as well as needed. Mucous membranes are a bit dry and he has no swelling. So I think he is dehydrated. Thus the low sodium is due to free water depletion. Will check urine osmolality to be sure that this is not diabetes insipidus but so far his urine output is not been very high speaking against DI. In the meantime will continue giving IV fluids. He is getting 0.45 normal saline now (that is the bag that is hanging). I agree with this formulation for hydration as long as the sodium BUN creatinine are all coming down. Will continue this. (2) Chronic kidney disease, stage IV (severe): Code(s): N18.4 - Chronic kidney disease, stage 4 (severe) Status: Chronic Assessment and Plan: The patient has chronic kidney disease. Most likely this is due to hypertension and diabetes. Baseline creatinine is around 4 His creatinine is very high now. I suspect that most of the increment in creatinine is mostly due to dehydration however there may have been some progression of his underlying chronic kidney disease. Check fractional excretion of urea and a renal ultrasound to look further into why his creatinine might be high. (3) Renal failure (ARF), acute on chronic: Code(s): N17.9 - Acute kidney failure, unspecified; N18.9 - Chronic kidney disease, unspecified Status: Acute Assessment and Plan: The patient has acute kidney injury. Much of this is probably due to dehydration. He is getting hypotonic IV fluid in the form of 0.45 normal saline. His BUN and creatinine have improved a little bit and his sodium level is down as well. Will continue this for now. Will recheck labs later today (4) Acute UTI: Code(s): N39.0 - Urinary tract infection, site not specified Status: Acute Assessment and Plan: The patient has pyuria. He has a urine culture pending. He is currently on meropenem. (5) Hypertension: Code(s): I10 - Essential (primary) hypertension Status: Chronic Assessment and Plan: His blood pressure is up and down between 124 and 182 As an outpatient he is on clonidine and hydralazine as well as hydrochlorothiazide. For some reason he is getting hydrochlorothiazide 3 times a day. He is also on furosemide. At this point will hold all the diuretics. He is getting his clonidine. Will restart the hydralazine at a lower dose as well since he is dehydrated. (6) Insulin dependent diabetes mellitus: Status: Chronic (7) Dementia: Code(s): F03.90 - Unspecified dementia, unspecified severity, without behavioral disturbance, psychotic disturbance, mood disturbance, and anxiety Status: Acute History of Present Illness Reason for Consult Consult date: 07/02/24 Chief Complaint Chief complaint: Renal failure, Urinary tract infection, Uremia Review of Systems Constitutional: Constitutional: Reports no additional constitutional complaints Eyes: Eyes: Reports no additional eye complaints ENT: Reports system reviewed and no additional complaints, except as documented Cardiovascular: Cardiovascular: Reports no additional cardiovascular complaints Respiratory: Respiratory: Reports no additional respiratory complaints Gastrointestinal: Gastrointestinal: Reports no additional gastrointestinal complaints Genitourinary: Genitourinary: Reports no additional male genitourinary complaints Musculoskeletal: Musculoskeletal: Reports no additional musculoskeletal complaints Integumentary/Breasts: Skin/Breast: Reports system reviewed and no additional complaints, except as docu Neurologic: Reports system reviewed and no additional complaints, except as documented Psychiatric: Psychiatric: Reports no additional psychiatric complaints Endocrine: Endocrine: Reports no additional endocrine complaints [facility] Past Medical History Medical History A-fib Dementia Hypertension Insulin dependent diabetes mellitus Family History Family History Other Unknown family medical history Social History Social History Smoking status: Unknown if ever smoked Second hand tobacco smoke exposure: No Alcohol intake: unknown Substance use: unknown Substance use type: unknown Spiritual care concerns: No Meds Home Medications and Allergies Home Medications Medication Instructions Recorded Confirmed Type atorvastatin 20 mg tablet 20 mg PO DAILY 04/28/23 07/02/24 History clonidine 0.3 mg/24 hr weekly 0.3 mg transdermal DAILY 04/28/23 07/02/24 History transdermal patch glucagon 1 mg solution for 1 mg IM PRN PRN Hypoglycemia 04/28/23 07/02/24 History injection (Glucagon Emergency Kit) hydrochlorothiazide 25 mg tablet 25 mg PO TID 04/28/23 07/02/24 History hydralazine 50 mg tablet 100 mg PO TID #90 tabs 05/02/23 07/02/24 Rx acetaminophen 325 mg tablet 650 mg PO Q6H PRN Pain (Scale 10/02/23 07/02/24 History Score 1-3) ferrous sulfate 325 mg (65 mg 325 mg PO BID 10/02/23 07/02/24 History iron) tablet dextrose 40 % oral gel (Glutose-15) 15 g PO PRN PRN Hypoglycemia #10 10/10/23 07/02/24 Rx grams ascorbic acid (vitamin C) 1,000 mg 1 g PO DAILY 07/02/24 07/02/24 History tablet docosahexaenoic acid (dha)-epa 120 1 cap PO DAILY 07/02/24 07/02/24 History mg-180 mg capsule furosemide 20 mg tablet 20 mg PO DAILY 07/02/24 07/02/24 History insulin glargine-yfgn 100 unit/mL 40 unit subcut HS 07/02/24 07/02/24 History (3 mL) subcutaneous pen insulin regular human 100 unit/mL sliding scale dose subcut ACHS 07/02/24 History injection solution (Humulin R Regular U-100 Insulin) Allergies Allergy/AdvReac Type Severity Reaction Status Date / Time No Known Allergies Allergy Verified 05/19/24 11:12 Vital Signs Vital Signs - 24 hr 07/01/24 22:55 07/02/24 02:30 07/02/24 03:35 Temperature 98.2 F 97.4 F L Pulse Rate 70 74 46 L Respiratory Rate 18 18 16 Blood Pressure 147/48 H 124/74 171/63 H Pulse Oximetry 98 98 100 Oxygen Delivery Room Air Fraction of Inspired Oxygen 07/02/24 07:49 Temperature Pulse Rate Respiratory Rate Blood Pressure Pulse Oximetry 97 Oxygen Delivery Room Air Fraction of Inspired Oxygen 21 Exam Narrative: Exam Narrative: Well developed well-nourished male in no acute distress Skin is warm and dry without rash Head normocephalic atraumatic Eyes normal sclerae and conjunctivae Mouth normal lips, missing some teeth and normal gums. Mucous membranes are bit dry. Neck no nodes no thyromegaly no carotid bruits Lungs symmetric and clear to auscultation and percussion Heart regular rate and rhythm without rub or gallop Abdomen bowel sounds positive soft nontender, no bruits. Extremities no cyanosis, clubbing, or edema Psychological not anxious or depressed Neuro alert and oriented x3 motor 5/5 cranial nerves 2-12 intact reflexes 2+ and equal in the biceps and patellar tendons cerebellar normal rapid alternating movements Results Lab Results 07/01/24 23:45 07/02/24 04:48 Lab results: Most recent lab results Calcium 8.8 mg/dL (8.4-10.2) 07/02/24 04:48 Urine Creatinine 76.4 mg/dL 07/01/24 23:45
[2024-07-02] MEDS: ATORVASTATIN 20 MG TABLET PO (09:34)
[2024-07-02] MEDS: FERROUS SULFATE 325 MG TABLET DR PO ×2 (09:34→17:06)
[2024-07-02] MEDS: hydrALAZINE HCL 50 MG TABLET PO ×3 (09:41→17:06)
[2024-07-02 09:48] LABS: Anion Gap 16 mmol/L (4-12); Calcium 8.5 mg/dL (8.4-10.2); Carbon Dioxide 22 mmol/L (22-30); Chloride 122 mmol/L (98-107); Estimated CRCL calculation 4 ml/min; Estimated Glomerular Filt Rate 5; Glucose 81 mg/dL (65-110); Potassium 3.8 mmol/L (3.4-5.0); Sodium 160 mmol/L (137-145)
[2024-07-02 09:50] LABS: Blood Urea Nitrogen 189 mg/dL (9-20)
[2024-07-02 11:59] LABS: Glucose Point of Care 134 mg/dl (65-105)
[2024-07-02 14:02] LABS: Urea Random Urine 618 MG/DL
[2024-07-02 14:19] LABS: Creatinine Urine 71.3 mg/dL
[2024-07-02 14:36] LABS: Total Protein Urine Random 302 mg/dL; Ur Ttl Prot Creatinine Ratio 4.24 mg/mg (0-0.20)
[2024-07-02 15:52] LABS: Glucose Point of Care 147 mg/dl (65-105)
[2024-07-02 16:40] LABS: Anion Gap 19 mmol/L (4-12); Calcium 8.5 mg/dL (8.4-10.2); Carbon Dioxide 19 mmol/L (22-30); Chloride 122 mmol/L (98-107); Estimated CRCL calculation 4 ml/min; Estimated Glomerular Filt Rate 5; Glucose 112 mg/dL (65-110); Potassium 4.1 mmol/L (3.4-5.0); Sodium 160 mmol/L (137-145)
--- NOTE | 2024-07-02 16:42 | PM.IMPN ---
Progress Note: A&P Assessment and Plan (1) Hypernatremia: Code(s): E87.0 - Hyperosmolality and hypernatremia Status: Acute Assessment and Plan: Patient brought in for abnormal labs. Na was 163. Chloride 122. Clinically he appears dehydrated. He takes oral intake and suspect he is not taking enough to sustain himself. He was started on 1/2NS and sodium dropped to 160 but now stable. May need to change to D5W. Consider placing NGT for better nutrition and free water if he does not eat well here. So far, he is eating 25-50% of meals. Nephrology following and managing sodium levels. Appreciate their input (2) Renal failure (ARF), acute on chronic: Code(s): N17.9 - Acute kidney failure, unspecified; N18.9 - Chronic kidney disease, unspecified Status: Acute Assessment and Plan: Cr toward the end of his last hospitalization was 3.7-3.9 and stable for a few days. BUN was in the 60's. BUN 199 with Cr 12.8 on admission. Suspect related to dehydration but Urine eos rare and Reymundo 80. FENa 8% with FEUrea 52% more consistent with ATN. Prot/Cr ratio 4.2gm c/w nephrotic range proteinuria as well. Renal US showing nomral right kidney but left kidney and bladder unable to be visualized. LINDSEY probably related to poor oral, worsening CKD IV, diuretic therapy (Lasix and HCTZ that is TID), UTI Lan in place: 200mL -> 200mL so far today Potassium normal and serum bicarb low at 19 (AG 19) Continue IV fluids but suspect patient will need HD Monitor UOP, electrolytes and renal function (3) Chronic kidney disease, stage IV (severe): Code(s): N18.4 - Chronic kidney disease, stage 4 (severe) Status: Chronic Assessment and Plan: As above. (4) Acute UTI: Code(s): N39.0 - Urinary tract infection, site not specified Status: Acute Assessment and Plan: UA is consistent with UTI. UCx collected. Hx of ESBL EColi Meropenem started. UCx pending. Follow up on UCx results. (5) A-fib: Code(s): I48.91 - Unspecified atrial fibrillation Status: Acute Assessment and Plan: Tele reviewed. Possible complete heart block. On clonidine patch currently which can slow conduction. Old EKG in September showing sinus rhythm with CHB and junctional escape rhythm. Cardiology note reviewed: patient with asymptomatic AV dissociation. PM is indicated but they felt not clinically indicated given the patient's poor healthy. Check EKG. Continue clonidine patch for now since he has been on this since before his hospitalization in September. He was on Eliquis at the time of last discharge. (6) Hypertension: Code(s): I10 - Essential (primary) hypertension Status: Chronic Assessment and Plan: Patient's blood pressure was reviewed on 07/02 Blood pressure remains reasonably well controlled. SBP 120-170 since admission Will continue current meds as clonidine patch 0.3mg and hydralazine. (7) Insulin dependent diabetes mellitus: Status: Chronic Assessment and Plan: The patient's blood glucose was reviewed on 07/02 Glucose remains well controlled. Continue AccuCheks covering with sliding scale. Hypoglycemia protocol available as needed. Continue to monitor (8) Dementia: Code(s): F03.90 - Unspecified dementia, unspecified severity, without behavioral disturbance, psychotic disturbance, mood disturbance, and anxiety Status: Acute Assessment and Plan: Nonverbal. Not on treatment for dementia. Follow Plan DVT prophylaxis - SCDs. Full code by default. Unclear who the guardian is. Investigation ongoing. Subjective Date/time seen: 07/02/24 16:42 Interval history: 73yo male with dementia, CKD, DM, AFib and HTN here for worsening renal failure. Patieint is nonverbal. He is awake but unable to provide hx. Review of Systems Review of Systems: ROS unobtainable: Yes unobtainable due to mental status Exam Narrative: AF 98.5 161/63 51 24 100% ra Gen - NARD lying in contracted posture Chest - clear to quiet respirations CV - RRR S1/S2. tele showing bradycardia mostly high 40's low 50's and P waves not corresponding with QRS. Abd - Soft, no apparent tenderness - Lan secured draining clear yellow urine. Ext - No pedal edema Neuro - Alert. non verbal. contracted. Skin - Warm and dry. heels okay. right griffin dressing clean and dry Objective Data Vital Signs Vital Signs: Vital Signs - 24 hr 07/01/24 22:55 07/02/24 02:30 07/02/24 03:35 Temperature 98.2 F 97.4 F L Pulse Rate 70 74 46 L Respiratory Rate 18 18 16 Blood Pressure 147/48 H 124/74 171/63 H Pulse Oximetry 98 98 100 Oxygen Delivery Room Air Fraction of Inspired Oxygen 07/02/24 07:49 07/02/24 03:45 07/02/24 03:42 Temperature Pulse Rate 46 L 44 L Respiratory Rate 16 Blood Pressure Pulse Oximetry 97 100 Oxygen Delivery Room Air Room Air Fraction of Inspired Oxygen 21 07/02/24 06:00 07/02/24 08:00 07/02/24 12:00 Temperature 97.6 F 98.8 F Pulse Rate 46 L 56 L 53 L Respiratory Rate 24 H 28 H Blood Pressure 154/60 H 154/57 H Pulse Oximetry 100 100 Oxygen Delivery Fraction of Inspired Oxygen 07/02/24 08:00 07/02/24 10:00 07/02/24 12:00 Temperature Pulse Rate 50 L 51 L 52 L Respiratory Rate Blood Pressure Pulse Oximetry Oxygen Delivery Fraction of Inspired Oxygen 07/02/24 16:00 07/02/24 14:00 07/02/24 16:00 Temperature 98.5 F Pulse Rate 55 L 47 L 51 L Respiratory Rate 24 H Blood Pressure 161/63 H Pulse Oximetry 100 Oxygen Delivery Fraction of Inspired Oxygen Intake/Output Intake/Output: Intake & Output 06/29/24 06/30/24 07/01/24 07/02/24 23:59 23:59 23:59 23:59 Intake Total 2462 Output Total 200 200 Balance -200 2262 Meds/Results Medications: Active Medications Generic Name Dose Route Start Last Admin Trade Name Freq PRN Reason Stop Dose Admin Atorvastatin Calcium 20 mg 07/02/24 09:00 07/02/24 09:34 Atorvastatin 20 Mg Tablet PO 20 mg DAILY URIAH Administration Clonidine HCl 325 patch 07/08/24 09:00 Clonidine 0.3 Mg/24 Hr Patch TRANSDERM Q7D URIAH Dextrose 12.5 gm 07/02/24 02:28 Dextrose 50% 25 Gm/50 Ml Syringe IV PUSH PRN PRN Hypoglycemia Protocol Ferrous Sulfate 325 mg 07/02/24 09:00 07/02/24 09:34 Ferrous Sulfate [address] PO 08/01/24 08:59 325 mg BID URIAH Administration Glucagon 1 mg 07/02/24 02:28 Glucagon For Inj 1 Mg Vial IM PRN PRN Hypoglycemia Protocol Glucose 15 gm 10/27/24 02:28 Glucose Oral Gel 15 Gm Of Glucse In 37.5 Gm Tube PO PRN PRN Hypoglycemia Protocol Hydralazine HCl 50 mg 07/02/24 09:00 07/02/24 13:53 Hydralazine Hcl 50 Mg Tablet PO 50 mg TID URIAH Administration Meropenem 500 mg in 100 mls @ 200 mls/hr 07/03/24 05:00 IVPB Q24H URIAH Dextrose 1,000 mls @ 100 mls/hr 07/02/24 02:28 Dextrose 5% 1,000 Ml IVPB PRN PRN Hypoglycemia Protocol Sodium Chloride 1,000 mls @ 100 mls/hr 07/02/24 05:55 07/02/24 06:25 Sodium Chloride 0.45% IV CONT 100 mls/hr .Q10H URAIH Administration Radiology Results: ITS Impressions Head CT 07/02/24 06:32 IMPRESSION: 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 Renal Ultrasound 07/02/24 11:50 IMPRESSION: 1. Normal right kidney. 2. Left kidney and bladder not evaluated. Labs Labs: Laboratory Results - last 24 hr 07/01/24 07/02/24 07/02/24 23:45 04:48 07:41 WBC 8.7 RBC 2.93 L Hgb 8.9 L Hct 29.4 L MCV 100.3 H MCH 30.4 MCHC 30.3 L RDW 13.4 Plt Count 171 MPV 12.4 H Immature Gran % (Auto) 0.5 Neut % (Auto) 76.7 H Lymph % (Auto) 11.0 L [place] % (Auto) 9.2 H Eos % (Auto) 2.3 Baso % (Auto) 0.3 Lymph # (Auto) 0.96 [place] # (Auto) 0.8 H Eos # (Auto) 0.2 Baso # (Auto) 0.0 Abs Immat Gran (auto) 0.04 H Absolute Neuts (auto) 6.7 Absolute Nucleated RBC 0.000 Nucleated RBC % 0.0 PT 15.4 H INR 1.2 Sodium 163 H* 160 H Potassium 4.6 4.1 Chloride 119 H 122 H Carbon Dioxide 25 22 Anion Gap 19 H 16 H BUN 199 H D 191 H Creatinine 12.80 H 11.80 H Estim Creat Clear Calc 4 4 Estimated GFR 5 L 5 L Glucose 122 H 94 POC Capillary Glucose 86 Lactic Acid 1.3 Calcium 9.2 8.8 Total Bilirubin 0.5 AST 25 ALT 15 Alkaline Phosphatase 66 Total Protein 8.0 Albumin 4.0 Lipase 88 Urine Color Yellow Urine Appearance Cloudy H Urine pH 7.5 Ur Specific [place] 1.013 Urine Protein 2+ H Urine Glucose (UA) Negative Urine Ketones Negative Ur Blood (Man) Trace Urine Nitrate Negative Urine Bilirubin Negative Urine Urobilinogen 0.2 Leukocyte Esterase Rfl 3+ H Urine RBC 11-20 H Urine WBC >100 H Ur Squamous Epith Cells None seen Urine Bacteria 3+ H Urine Casts 0-2 Urine Eosinophils Rare U Random Total Protein Ur Random Sodium 80 Ur Random Urea Urine Creatinine 76.4 Protein/Creat Ratio 2 07/02/24 07/02/24 07/02/24 09:25 11:17 13:43 WBC RBC Hgb Hct MCV MCH MCHC RDW Plt Count MPV Immature Gran % (Auto) Neut % (Auto) Lymph % (Auto) [place] % (Auto) Eos % (Auto) Baso % (Auto) Lymph # (Auto) [place] # (Auto) Eos # (Auto) Baso # (Auto) Abs Immat Gran (auto) Absolute Neuts (auto) Absolute Nucleated RBC Nucleated RBC % PT INR Sodium 160 H Potassium 3.8 Chloride 122 H Carbon Dioxide 22 Anion Gap 16 H BUN 189 H Creatinine 11.60 H Estim Creat Clear Calc 4 Estimated GFR 5 L Glucose 81 POC Capillary Glucose 134 H Lactic Acid Calcium 8.5 Total Bilirubin AST ALT Alkaline Phosphatase Total Protein Albumin Lipase Urine Color Urine Appearance Urine pH Ur Specific [place] Urine Protein Urine Glucose (UA) Urine Ketones Ur Blood (Man) Urine Nitrate Urine Bilirubin Urine Urobilinogen Leukocyte Esterase Rfl Urine RBC Urine WBC Ur Squamous Epith Cells Urine Bacteria Urine Casts Urine Eosinophils U Random Total Protein 302 Ur Random Sodium Ur Random Urea 618 Urine Creatinine 71.3 Protein/Creat Ratio 2 4.24 H 07/02/24 07/02/24 15:28 16:14 WBC RBC Hgb Hct MCV MCH MCHC RDW Plt Count MPV Immature Gran % (Auto) Neut % (Auto) Lymph % (Auto) [place] % (Auto) Eos % (Auto) Baso % (Auto) Lymph # (Auto) [place] # (Auto) Eos # (Auto) Baso # (Auto) Abs Immat Gran (auto) Absolute Neuts (auto) Absolute Nucleated RBC Nucleated RBC % PT INR Sodium 160 H Potassium 4.1 Chloride 122 H Carbon Dioxide 19 L Anion Gap 19 H BUN Creatinine 11.40 H Estim Creat Clear Calc 4 Estimated GFR 5 L Glucose 112 H POC Capillary Glucose 147 H Lactic Acid Calcium 8.5 Total Bilirubin AST ALT Alkaline Phosphatase Total Protein Albumin Lipase Urine Color Urine Appearance Urine pH Ur Specific [place] Urine Protein Urine Glucose (UA) Urine Ketones Ur Blood (Man) Urine Nitrate Urine Bilirubin Urine Urobilinogen Leukocyte Esterase Rfl Urine RBC Urine WBC Ur Squamous Epith Cells Urine Bacteria Urine Casts Urine Eosinophils U Random Total Protein Ur Random Sodium Ur Random Urea Urine Creatinine Protein/Creat Ratio 2
--- NOTE | 2024-07-02 16:43 | PC.NURSE ---
notified ROSARIO tran of HC NA of 160 per lab
[2024-07-02 16:54] LABS: Blood Urea Nitrogen 193 mg/dL (9-20)
--- NOTE | 2024-07-02 17:26 | ECG_ITS ---
Test Date: 2024-07-02 17:47:52 Measurements Intervals [place] Rate: 49 P: 0 WA: 0 QRS: 89 QRSD: 134 T: -87 QT: 508 QTc: 459 Interpretive Statements SINUS RHYTHM WITH HIGH GRADE AV BLOCK RIGHT BUNDLE BRANCH BLOCK [120+ ms QRS DURATION, UPRIGHT V1, 40+ ms S IN I/aVL/V4/V5/V6] MARKED T-WAVE ABNORMALITY, CONSIDER ANTEROLATERAL ISCHEMIA [-0.5+ mV T WAVE IN I/aVL/V3-V6] MODERATE T-WAVE ABNORMALITY, CONSIDER INFERIOR ISCHEMIA [-0.1+ mV T WAVE IN II/aVF] No previous ECG available for comparison Electronically Signed On 07-03-2024 10:53:26 CDT by Don Egan M.D.
[2024-07-02] MEDS: DEXTROSE 5% 1,000 ML 1,000 ML 100 ML IV CONT (19:54)
[2024-07-02 20:40] LABS: Glucose Point of Care 148 mg/dl (65-105)
[2024-07-03] VITALS (20 sets, daily range): BP systolic 132–174; BP diastolic 48–88; PULSE 44–79; RESP 20–24; TEMP 36.5–37.8; O2SAT 96–100; BMI 20.5
[2024-07-03 01:22] LABS: Sodium 159 mmol/L (137-145)
[2024-07-03] MEDS: MEROPENEM 500 MG/NS 100 ML 500 MG/100 ML BAG 200 MG IVPB (04:11)
[2024-07-03] MEDS: DEXTROSE 5% 1,000 ML 1,000 ML 100 ML IV CONT ×2 (04:12→16:10)
[2024-07-03 05:28] LABS: Anion Gap 16 mmol/L (4-12); Carbon Dioxide 21 mmol/L (22-30); Chloride 120 mmol/L (98-107); Estimated CRCL calculation 4 ml/min; Estimated Glomerular Filt Rate 5; Glucose 166 mg/dL (65-110); Magnesium 1.6 mg/dL (1.6-2.3); Phosphorus 7.7 mg/dL (2.5-4.5); Potassium 3.8 mmol/L (3.4-5.0); Sodium 157 mmol/L (137-145)
[2024-07-03 05:38] LABS: Blood Urea Nitrogen 187 mg/dL (9-20)
[2024-07-03 06:54] LABS: Basophils Percent Auto 0.1 % (0.2-1.2); Eosinophils Percent Auto 0.3 % (0-4.4); Hematocrit 21.8 % (42.0-52.0); Immature Granulocyte Absolute 0.06 K/mm3 (0.00-0.031); Immature Granulocyte Percent A 0.7 % (0-0.5); Lymphocytes Absolute Auto 1.02 K/mm3 (0.9-3.2); Lymphocytes Percent Auto 11.7 % (18.3-44.2); Mean Corpuscular HGB Conc 29.4 g/dl (32-36); Mean Corpuscular Volume 102.3 fl (80-100); Mean Platelet Volume 12.6 fl (7.4-10.4); Monocytes Absolute Auto 0.6 K/mm3 (0.1-0.6); Monocytes Percent Auto 6.9 % (2.6-8.5); Neutrophils Percent Auto 80.3 % (45.5-73.1); Platelet Count Result 130 k/mm3 (150-375); Red Blood Count 2.13 M/mm3 (4.6-6.20); Red Cell Distribution Width 13.2 % (11.5-14.5); White Blood Count 8.8 K/mm3 (4.5-10.0)
[2024-07-03 07:19] LABS: Hemoglobin 6.4 g/dL (14.0-18.0)
[2024-07-03 07:21] LABS: Hypochromasia 1+; Macrocytosis 1+ (NORMAL); Platelet Estimate Slightly Decreased (Adequate)
[2024-07-03 07:22] LABS: Ovalocytes 1+; Schistocytes Rare
[2024-07-03 08:52] LABS: Glucose Point of Care 194 mg/dl (65-105)
[2024-07-03 09:09] LABS: Iron 19 ug/dL (49-181)
[2024-07-03 09:18] LABS: Percent Iron Saturation 11 % (20-50)
[2024-07-03] MEDS: ATORVASTATIN 20 MG TABLET PO (09:48)
[2024-07-03] MEDS: FERROUS SULFATE 325 MG TABLET DR PO ×2 (09:48→16:10)
[2024-07-03] MEDS: hydrALAZINE HCL 50 MG TABLET PO ×3 (09:48→16:10)
[2024-07-03 10:00] LABS: Folic Acid 6.6 ng/mL (2.76->20)
[2024-07-03] MEDS: SODIUM CHLORIDE 0.9% IV 250 ML 30 ML IV CONT (10:47)
--- NOTE | 2024-07-03 11:40 | P.PNNP_ITS ---
Progress Note: A&P Assessment and Plan (1) Hypernatremia: Code(s): E87.0 - Hyperosmolality and hypernatremia Status: Acute Assessment and Plan: * as noted on admission * presumably due to severe free water deficit due to lack of fluid intake (and likely volume depletion) * doubt this is diabetes insipidus (no evidence of polyuria) * currently on D5W IVFs * follow trend of repeat sodium levels (2) LINDSEY (acute kidney injury): Code(s): N17.9 - Acute kidney failure, unspecified Status: Acute Assessment and Plan: * as noted by markedly elevate BUN and creatinine (BUN 199 and creatinine 12.8) on admission * evaluation to date noted: * renal ultrasound with normal right kidney (unable to visualize bladder and left kidney) * rare urine eosinophils (difficult to interpret in context of possible UTI) * urine electrolytes non-prerenal * nephrotic range proteinuria noted * suspect LINDSEY multifactorial ATN: * volume depletion/dehydration * diuretic use prior to admission * urinary tract infection * possible progression of CKD * no critical electrolytes, severe metabolic acidosis, or volume overload to necessitate urgent [employer]/dialysis * however, he remains at risk for renal replacement therapy/dialysis * follow trend of repeat labs and UOP (3) Chronic kidney disease, stage IV (severe): Code(s): N18.4 - Chronic kidney disease, stage 4 (severe) Status: Chronic Assessment and Plan: * baseline creatinine ~ 3.7 - 4.10mg/dl (based on last labs in Oct 2023) * due to a combo of diabetes, hypertension, and age-related change * cannot deny a possibility of CKD progression (4) Acute UTI: Code(s): N39.0 - Urinary tract infection, site not specified Status: Acute Assessment and Plan: * admission UA highly suggestive * urine culture results noted * on antibiotics (5) Hypertension: Code(s): I10 - Essential (primary) hypertension Status: Chronic Assessment and Plan: * reasonable control at this time * diuretics on hold due to #2 * follow trend of hemodyanmics (6) Anemia: Code(s): D64.9 - Anemia, unspecified Status: Acute Assessment and Plan: * noted drop in H/H by AM labs * suspect secondary to hemoconcentration from volume depletion * iron studies suggest chronic disease * PRBC transfusion per protocol * consider empiric JORGE while hospitalized * follow trend of H/H (7) Dementia: Code(s): F03.90 - Unspecified dementia, unspecified severity, without behavioral disturbance, psychotic disturbance, mood disturbance, and anxiety Status: Acute Assessment and Plan: * at baseline * continue supportive therapy (8) Insulin dependent diabetes mellitus: Status: Chronic Assessment and Plan: * follow accu-cheks * glycemic control per hospitalists Will continue to follow. Subjective Date/time seen: 07/03/24 11:40 Interval history: Follow-up for acute kidney injury/acute renal failure on chronic kidney disease and hypernatremia. Chart reviewed -- assuming care from Dr. Zhang; no apparent distress noted at the time of my visit but he remains non-communicative/non-verbal currently; no acute issues/events overnight or earlier this morning; remains on D5W IVFs with some improvement in sodium but not so regarding renal function; still making reasonable urine output. Exam Narrative: General: frail appearing male in NAD Heart: normal S1 and S2; no rub Lungs: clear to auscultation Abdomen: soft, nontender, nondistended, positive bowel sounds Extremities: no cyanosis or clubbing; no edema; contracted posture Skin: warm and dry Objective Data Vital Signs Vital Signs: Vital Signs Temp Pulse Resp BP Pulse Ox O2 Del Method 07/03/24 11:20 98.6 F 53 L 20 157/57 H 100 07/03/24 10:57 98.6 F 51 L 20 163/48 H 98 07/03/24 10:00 44 L 07/03/24 08:00 51 L 07/03/24 08:00 98.5 F 54 L 22 H 174/74 H 98 07/03/24 06:00 50 L 07/03/24 04:40 99.4 F 56 L 20 132/61 100 07/03/24 04:00 56 L 07/03/24 03:35 Room Air 07/03/24 02:00 69 07/03/24 00:00 78 07/03/24 00:00 Room Air 07/02/24 22:00 68 07/02/24 20:00 77 07/03/24 00:00 100.0 F H 79 22 H 141/88 H 100 07/02/24 20:00 99 Room Air 07/02/24 20:00 99.1 F 77 20 115/92 H 99 Intake/Output Intake/Output: Intake & Output 06/30/24 07/01/24 07/02/24 07/03/24 23:59 23:59 23:59 23:59 Intake Total 3810.3 2426.7 Output Total 104 559 0200 Balance -200 3610.3 1426.7 Meds/Results Medications: Active Medications Generic Name Dose Route Start Last Admin Trade Name Freq PRN Reason Stop Dose Admin Atorvastatin Calcium 20 mg 07/02/24 09:00 07/03/24 09:48 Atorvastatin 20 Mg Tablet PO 20 mg DAILY URIAH Administration Clonidine HCl 1 patch 07/03/24 15:05 07/03/24 16:10 Clonidine 0.2 Mg/24 Hr Patch TRANSDERM 1 patch Mo@0900 URIAH Administration Dextrose 12.5 gm 07/02/24 02:28 Dextrose 50% 25 Gm/50 Ml Syringe IV PUSH PRN PRN Hypoglycemia Protocol Ferrous Sulfate 325 mg 07/02/24 09:00 07/03/24 16:10 Ferrous Sulfate [address] PO 08/01/24 08:59 325 mg BID URIAH Administration Glucagon 1 mg 07/02/24 02:28 Glucagon For Inj 1 Mg Vial IM PRN PRN Hypoglycemia Protocol Glucose 15 gm 07/02/24 02:28 Glucose Oral Gel 15 Gm Of Glucse In 37.5 Gm Tube PO PRN PRN Hypoglycemia Protocol Hydralazine HCl 50 mg 07/02/24 09:00 07/03/24 16:10 Hydralazine Hcl 50 Mg Tablet PO 50 mg TID URIAH Administration Meropenem 500 mg in 100 mls @ 200 mls/hr 07/03/24 05:00 07/03/24 10:48 IVPB Infused Q24H URIAH Infusion Dextrose 1,000 mls @ 100 mls/hr 07/02/24 02:28 Dextrose 5% 1,000 Ml IVPB PRN PRN Hypoglycemia Protocol Dextrose 1,000 mls @ 100 mls/hr 07/02/24 19:15 07/03/24 16:10 Dextrose 5% 1,000 Ml IV CONT 100 mls/hr .Q10H URIAH Administration Radiology Results: ITS Impressions Head CT 07/02/24 06:32 IMPRESSION: 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 Renal Ultrasound 07/02/24 11:50 IMPRESSION: 1. Normal right kidney. 2. Left kidney and bladder not evaluated. Labs Labs: Laboratory Tests 07/03/24 06:47 07/03/24 04:41 Calcium 8.0 L Phosphorus 7.7 H Magnesium 1.6 Albumin 3.0 L Microbiology 07/01/24 23:45 Urine Clean Catch Urine Culture - Preliminary Proteus Mirabilis
--- NOTE | 2024-07-03 14:30 | P.PNIM_ITS ---
Progress Note: A&P Assessment and Plan (1) Hypernatremia: Code(s): E87.0 - Hyperosmolality and hypernatremia Status: Acute Assessment and Plan: Patient brought in for abnormal labs. Na was 163. Chloride 122. Clinically he appears dehydrated. He takes oral intake and suspect he is not taking enough to sustain himself. He was started on 1/2NS and sodium dropped to 160 but now stable. He was changed to D5W and Na improved to 157. Consider placing NGT for better nutrition and free water if he does not eat well here. So far, he is eating 25-50% of meals. Nephrology following and managing sodium levels. Appreciate their input (2) Renal failure (ARF), acute on chronic: Code(s): N17.9 - Acute kidney failure, unspecified; N18.9 - Chronic kidney disease, unspecified Status: Acute Assessment and Plan: Cr toward the end of his last hospitalization was 3.7-3.9 and stable for a few days. BUN was in the 60's. BUN 199 with Cr 12.8 on admission. Suspect related to dehydration but Urine eos rare and Reymundo 80. FENa 8% with FEUrea 52% more consistent with ATN. Prot/Cr ratio 4.2gm c/w nephrotic range proteinuria as well. Renal US showing nomral right kidney but left kidney and bladder unable to be visualized. LINDSEY probably related to poor oral, worsening CKD IV, diuretic therapy (Lasix and HCTZ that is TID), UTI Lan in place: 200mL -> 200mL -> 300mL so far today Renal function: BUN down 187 and Cr up at 12.2 Potassium normal and serum bicarb better at 21 (AG 16) Continue IV fluids but suspect patient will need HD Monitor UOP, electrolytes and renal function (3) Chronic kidney disease, stage IV (severe): Code(s): N18.4 - Chronic kidney disease, stage 4 (severe) Status: Chronic Assessment and Plan: As above. (4) Acute UTI: Code(s): N39.0 - Urinary tract infection, site not specified Status: Acute Assessment and Plan: UA is consistent with UTI. UCx collected. Hx of ESBL EColi Meropenem started. UCx growing proteus. Follow up on UCx results. (5) A-fib: Code(s): I48.91 - Unspecified atrial fibrillation Status: Acute Assessment and Plan: Tele reviewed showing possible complete heart block. On clonidine patch currently which can slow conduction. Old EKG in September showing sinus rhythm with CHB and junctional escape rhythm. Cardiology note reviewed: patient with asymptomatic AV dissociation. PM is indicated but they felt not clinically indicated given the patient's poor healthy. EKG showing sinus rhythm with high degree AV block, Rt BBB and marked T wave changes in the anterolateral and inferior leads. Continue clonidine patch for now but start slow weaning He was on Eliquis at the time of last discharge but not listed as home med now. (6) Hypertension: Code(s): I10 - Essential (primary) hypertension Status: Chronic Assessment and Plan: Patient's blood pressure was reviewed on 07/03 Blood pressure remains reasonably well controlled. SBP 130-170 since admission Will continue current meds as clonidine patch and hydralazine. Wean clonidine (7) Insulin dependent diabetes mellitus: Status: Chronic Assessment and Plan: The patient's blood glucose was reviewed on 07/03 Glucose remains elevated at times. Continue AccuCheks covering with sliding scale. Hypoglycemia protocol available as needed. Continue to monitor (8) Dementia: Code(s): F03.90 - Unspecified dementia, unspecified severity, without behavioral disturbance, psychotic disturbance, mood disturbance, and anxiety Status: Acute Assessment and Plan: Nonverbal. Not on treatment for dementia. Follow (9) Anemia: Code(s): D64.9 - Anemia, unspecified Status: Acute Assessment and Plan: Hgb dropped to 6.4 from 8.9. No evidence of acute blood loss. Suspect related to IV fluids and that he was hemoconcentrated. Iron studies consistent with anemia of chronic disease probably related to his renal failure Transfuse Follow and transfuse as needed. Plan DVT prophylaxis - SCDs. Full code by default. Unclear who the guardian is. Investigation ongoing. Subjective Date/time seen: 07/03/24 14:30 Interval history: 73yo male with dementia, CKD, DM, AFib and HTN here for worsening renal failure. Patieint is nonverbal. He is awake but unable to provide hx. Review of Systems Review of Systems: ROS unobtainable: Yes unobtainable due to mental status Exam Narrative: Tm 100.0 98.5 153/57 49 20 100% ra Gen - NARD lying with legs in contracted posture Chest - clear to quiet respirations. Cheyene-Richard breathing pattern CV - RRR S1/S2. tele showing bradycardia, jct rhythm and runs of NSVT. Abd - Soft, no apparent tenderness, +BS - Lan secured draining clear yellow urine. Ext - No pedal edema Neuro - Alert. non verbal. contracted. Skin - Warm and dry. Objective Data Vital Signs Vital Signs: Vital Signs - 24 hr 07/02/24 16:00 07/02/24 16:00 07/02/24 18:00 Temperature 98.5 F Pulse Rate 55 L 51 L 64 Respiratory Rate 24 H Blood Pressure 161/63 H Pulse Oximetry 100 Oxygen Delivery 07/02/24 20:00 07/02/24 20:00 07/03/24 00:00 Temperature 99.1 F 100.0 F H Pulse Rate 77 79 Respiratory Rate 20 22 H Blood Pressure 115/92 H 141/88 H Pulse Oximetry 99 99 100 Oxygen Delivery Room Air 07/02/24 20:00 07/02/24 22:00 07/03/24 00:00 Temperature Pulse Rate 77 68 Respiratory Rate Blood Pressure Pulse Oximetry Oxygen Delivery Room Air 07/03/24 00:00 07/03/24 02:00 07/03/24 03:35 Temperature Pulse Rate 78 69 Respiratory Rate Blood Pressure Pulse Oximetry Oxygen Delivery Room Air 07/03/24 04:00 07/03/24 04:40 07/03/24 06:00 Temperature 99.4 F Pulse Rate 56 L 56 L 50 L Respiratory Rate 20 Blood Pressure 132/61 Pulse Oximetry 100 Oxygen Delivery 07/03/24 08:00 07/03/24 08:00 07/03/24 10:00 Temperature 98.5 F Pulse Rate 54 L 51 L 44 L Respiratory Rate 22 H Blood Pressure 174/74 H Pulse Oximetry 98 Oxygen Delivery 07/03/24 10:57 07/03/24 11:20 07/03/24 11:20 Temperature 98.6 F 98.6 F 98.6 F Pulse Rate 51 L 53 L 53 L Respiratory Rate 20 20 20 Blood Pressure 163/48 H 157/57 H 157/57 H Pulse Oximetry 98 100 100 Oxygen Delivery 07/03/24 12:19 07/03/24 12:00 Temperature 99.1 F 97.7 F Pulse Rate 49 L 48 L Respiratory Rate 20 20 Blood Pressure 153/57 H 153/57 H Pulse Oximetry 100 Oxygen Delivery Intake/Output Intake/Output: Intake & Output 06/30/24 07/01/24 07/02/24 07/03/24 23:59 23:59 23:59 23:59 Intake Total 3810.3 1080 Output Total 200 200 300 Balance -200 3610.3 780 Meds/Results Medications: Active Medications Generic Name Dose Route Start Last Admin Trade Name Freq PRN Reason Stop Dose Admin Atorvastatin Calcium 20 mg 07/02/24 09:00 07/03/24 09:48 Atorvastatin 20 Mg Tablet PO 20 mg DAILY URIAH Administration Clonidine HCl 325 patch 07/08/24 09:00 Clonidine 0.3 Mg/24 Hr Patch TRANSDERM Q7D URIAH Dextrose 12.5 gm 07/02/24 02:28 Dextrose 50% 25 Gm/50 Ml Syringe IV PUSH PRN PRN Hypoglycemia Protocol Ferrous Sulfate 325 mg 07/02/24 09:00 07/03/24 09:48 Ferrous Sulfate [address] PO 08/01/24 08:59 325 mg BID URIAH Administration Glucagon 1 mg 07/02/24 02:28 Glucagon For Inj 1 Mg Vial IM PRN PRN Hypoglycemia Protocol Glucose 15 gm 07/02/24 02:28 Glucose Oral Gel 15 Gm Of Glucse In 37.5 Gm Tube PO PRN PRN Hypoglycemia Protocol Hydralazine HCl 50 mg 07/02/24 09:00 07/03/24 12:27 Hydralazine Hcl 50 Mg Tablet PO 50 mg TID URIAH Administration Meropenem 500 mg in 100 mls @ 200 mls/hr 07/03/24 05:00 07/03/24 10:48 IVPB Infused Q24H URIAH Infusion Dextrose 1,000 mls @ 100 mls/hr 07/02/24 02:28 Dextrose 5% 1,000 Ml IVPB PRN PRN Hypoglycemia Protocol Dextrose 1,000 mls @ 100 mls/hr 07/02/24 19:15 07/03/24 04:12 Dextrose 5% 1,000 Ml IV CONT 100 mls/hr .Q10H URIAH Administration Sodium Chloride 250 mls @ 30 mls/hr 07/03/24 07:45 07/03/24 10:47 Normal Saline Iv IV CONT 07/03/24 16:04 30 mls/hr .Q8H20M STA Administration Radiology Results: ITS Impressions Head CT 07/02/24 06:32 IMPRESSION: 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 Renal Ultrasound 07/02/24 11:50 IMPRESSION: 1. Normal right kidney. 2. Left kidney and bladder not evaluated. Labs Labs: Laboratory Results - last 24 hr 07/02/24 07/02/24 07/02/24 13:43 15:28 16:14 WBC RBC Hgb Hct MCV MCH MCHC RDW Plt Count MPV Immature Gran % (Auto) Neut % (Auto) Lymph % (Auto) [place] % (Auto) Eos % (Auto) Baso % (Auto) Lymph # (Auto) [place] # (Auto) Eos # (Auto) Baso # (Auto) Abs Immat Gran (auto) Absolute Neuts (auto) Absolute Nucleated RBC Nucleated RBC % Platelet Estimate Hypochromasia Macrocytosis Ovalocytes Schistocytes Sodium 160 H Potassium 4.1 Chloride 122 H Carbon Dioxide 19 L Anion Gap 19 H BUN 193 H Creatinine 11.40 H Estim Creat Clear Calc 4 Estimated GFR 5 L Glucose 112 H POC Capillary Glucose 147 H Calcium 8.5 Phosphorus Magnesium Iron TIBC % Saturation Ferritin Albumin Vitamin B12 Folate U Random Total Protein 302 Protein/Creat Ratio 2 4.24 H Blood Type Antibody Screen Crossmatch 07/02/24 07/03/24 07/03/24 20:19 01:00 04:41 WBC RBC Hgb Hct MCV MCH MCHC RDW Plt Count MPV Immature Gran % (Auto) Neut % (Auto) Lymph % (Auto) [place] % (Auto) Eos % (Auto) Baso % (Auto) Lymph # (Auto) [place] # (Auto) Eos # (Auto) Baso # (Auto) Abs Immat Gran (auto) Absolute Neuts (auto) Absolute Nucleated RBC Nucleated RBC % Platelet Estimate Hypochromasia Macrocytosis Ovalocytes Schistocytes Sodium 159 H 157 H Potassium 3.8 Chloride 120 H Carbon Dioxide 21 L Anion Gap 16 H BUN 187 H Creatinine 12.20 H Estim Creat Clear Calc 4 Estimated GFR 5 L Glucose 166 H POC Capillary Glucose 148 H Calcium 8.0 L Phosphorus 7.7 H Magnesium 1.6 Iron TIBC % Saturation Ferritin Albumin 3.0 L Vitamin B12 Folate U Random Total Protein Protein/Creat Ratio 2 Blood Type Antibody Screen Crossmatch 07/03/24 07/03/24 07/03/24 06:47 08:05 08:49 WBC 8.8 RBC 2.13 L Hgb 6.4 L* Hct 21.8 L MCV 102.3 H MCH 30.0 MCHC 29.4 L RDW 13.2 Plt Count 130 L MPV 12.6 H Immature Gran % (Auto) 0.7 H Neut % (Auto) 80.3 H Lymph % (Auto) 11.7 L [place] % (Auto) 6.9 Eos % (Auto) 0.3 Baso % (Auto) 0.1 L Lymph # (Auto) 1.02 [place] # (Auto) 0.6 Eos # (Auto) 0.0 Baso # (Auto) 0.0 Abs Immat Gran (auto) 0.06 H Absolute Neuts (auto) 7.0 H Absolute Nucleated RBC 0.000 Nucleated RBC % 0.0 Platelet Estimate Slightly decreased Hypochromasia 1+ Macrocytosis 1+ Ovalocytes 1+ Schistocytes Rare Sodium Potassium Chloride Carbon Dioxide Anion Gap BUN Creatinine Estim Creat Clear Calc Estimated GFR Glucose POC Capillary Glucose 194 H Calcium Phosphorus Magnesium Iron 19 L TIBC 170 L % Saturation 11 L Ferritin 319.00 H Albumin Vitamin B12 435.0 Folate 6.6 U Random Total Protein Protein/Creat Ratio 2 Blood Type B Positive Antibody Screen Negative Crossmatch See Detail
[2024-07-03] MEDS: cloNIDine 0.2 MG/24 HR PATCH 1 PATCH TRANSDERM (16:10)
[2024-07-03 16:37] LABS: Glucose Point of Care 232 mg/dl (65-105)
[2024-07-03 16:37] LABS: Glucose Point of Care 250 mg/dl (65-105)
[2024-07-03 23:05] LABS: Glucose Point of Care 238 mg/dl (65-105)
[2024-07-04] VITALS (16 sets, daily range): BP systolic 100–187; BP diastolic 52–72; PULSE 41–111; RESP 16–24; TEMP 36.6–37.6; O2SAT 95–100
[2024-07-04 00:26] LABS: Glucose Point of Care 316 mg/dl (65-105)
[2024-07-04] MEDS: INSULIN ASPART (*BKC) 100 UNITS/ML SUB-Q ×4 (00:27→18:31)
[2024-07-04] MEDS: DEXTROSE 5% 1,000 ML 1,000 ML 100 ML IV CONT ×2 (04:26→14:20)
[2024-07-04] MEDS: MEROPENEM 500 MG/NS 100 ML 500 MG/100 ML BAG 200 MG IVPB (04:26)
[2024-07-04 05:31] LABS: Basophils Percent Auto 0.3 % (0.2-1.2); Eosinophils Absolute Auto 0.2 K/mm3 (0-0.3); Eosinophils Percent Auto 2.6 % (0-4.4); Hematocrit 25.8 % (42.0-52.0); Hemoglobin 7.8 g/dL (14.0-18.0); Immature Granulocyte Absolute 0.07 K/mm3 (0.00-0.031); Immature Granulocyte Percent A 0.9 % (0-0.5); Immature Platelet Fraction Pct 6.9 % (0.9-11.2); Lymphocytes Absolute Auto 0.98 K/mm3 (0.9-3.2); Lymphocytes Percent Auto 12.7 % (18.3-44.2); Mean Corpuscular HGB Conc 30.2 g/dl (32-36); Mean Corpuscular Hemoglobin 29.7 pg (26-34); Mean Corpuscular Volume 98.1 fl (80-100); Mean Platelet Volume 13.4 fl (7.4-10.4); Monocytes Absolute Auto 0.6 K/mm3 (0.1-0.6); Monocytes Percent Auto 7.1 % (2.6-8.5); Neutrophils Absolute Auto 5.9 K/mm3 (1.3-6.7); Neutrophils Percent Auto 76.4 % (45.5-73.1); Platelet Count Result 111 k/mm3 (150-375); Red Blood Count 2.63 M/mm3 (4.6-6.20); Red Cell Distribution Width 14.6 % (11.5-14.5); White Blood Count 7.7 K/mm3 (4.5-10.0)
[2024-07-04 05:57] LABS: Alanine Aminotransferase 21 U/L (6-50); Albumin Level 2.9 g/dL (3.5-5.1); Alkaline Phosphatase 43 U/L (38-126); Anion Gap 16 mmol/L (4-12); Aspartate Amino Transferase 54 U/L (17-59); Bilirubin,Total 0.6 mg/dL (0.2-1.3); Calcium 8.1 mg/dL (8.4-10.2); Carbon Dioxide 21 mmol/L (22-30); Chloride 115 mmol/L (98-107); Estimated CRCL calculation 5 ml/min; Estimated Glomerular Filt Rate 5; Glucose 187 mg/dL (65-110); Magnesium 1.6 mg/dL (1.6-2.3); Phosphorus 8.5 mg/dL (2.5-4.5); Potassium 3.9 mmol/L (3.4-5.0); Sodium 152 mmol/L (137-145)
[2024-07-04 06:02] LABS: Anisocytosis 1+; Hypochromasia 1+; Platelet Clumps Present; Platelet Estimate Decreased (Adequate); Schistocytes None Seen
[2024-07-04 06:40] LABS: Blood Urea Nitrogen 192 mg/dL (9-20)
[2024-07-04 08:00] LABS: Glucose Point of Care 221 mg/dl (65-105)
[2024-07-04] MEDS: hydrALAZINE HCL 50 MG TABLET PO ×3 (08:52→18:31)
[2024-07-04] MEDS: ATORVASTATIN 20 MG TABLET PO (08:52)
[2024-07-04] MEDS: FERROUS SULFATE 325 MG TABLET DR PO ×2 (08:52→18:31)
--- NOTE | 2024-07-04 10:16 | PM.PNNEP ---
Subjective Date/time seen: 07/04/24 10:16 Interval history: Follow-up for acute kidney injury/acute renal failure on chronic kidney disease and hypernatremia. Sodium appears to be slowly improving with D5W IVFs but BUN + creatinine has not changed all that much; tolerated PRBC transfusion yesterday without any issues/problems; Objective Data Vital Signs Vital Signs: Vital Signs Temp Pulse Resp BP Pulse Ox O2 Del Method 07/04/24 08:00 99.7 F H 47 L 16 149/67 H 100 Room Air 07/04/24 04:00 42 L 07/04/24 04:00 Room Air 07/04/24 02:00 41 L 07/04/24 05:04 99.1 F 47 L 24 H 171/55 H 100 07/04/24 00:00 Room Air 07/04/24 00:00 46 L 07/03/24 22:00 45 L 07/04/24 00:38 98.4 F 45 L 24 H 161/66 H 99 07/03/24 20:00 49 L 07/03/24 20:00 Room Air 07/03/24 20:28 98.6 F 51 L 24 H 157/77 H 100 07/03/24 18:00 45 L 07/03/24 16:00 47 L 07/03/24 14:00 54 L 07/03/24 16:00 99 F 48 L 24 H 156/56 H 97 07/03/24 16:00 Room Air 07/03/24 14:30 98.9 F 69 20 143/49 H 97 07/03/24 14:20 98.6 F 64 20 150/50 H 97 07/03/24 13:20 98.5 F 67 20 147/56 H 96 Intake/Output Intake/Output: Intake & Output 07/01/24 07/02/24 07/03/24 07/04/24 23:59 23:59 23:59 23:59 Intake Total 3810.3 2426.7 1462 Output Total 768 443 7153 1800 Balance -200 3610.3 1426.7 -338 Meds/Results Medications: Active Medications Generic Name Dose Route Start Last Admin Trade Name Freq PRN Reason Stop Dose Admin Atorvastatin Calcium 20 mg 07/02/24 09:00 07/04/24 08:52 Atorvastatin 20 Mg Tablet PO 20 mg DAILY URIAH Administration Clonidine HCl 1 patch 07/03/24 15:05 07/03/24 16:10 Clonidine 0.2 Mg/24 Hr Patch TRANSDERM 1 patch Mo@0900 URIAH Administration Dextrose 12.5 gm 07/03/24 23:35 Dextrose 50% 25 Gm/50 Ml Syringe IV PUSH PRN PRN Hypoglycemia Protocol Ferrous Sulfate 325 mg 07/02/24 09:00 07/04/24 08:52 Ferrous Sulfate [address] PO 08/01/24 08:59 325 mg BID URIAH Administration Glucagon 1 mg 07/03/24 23:35 Glucagon For Inj 1 Mg Vial IM PRN PRN Hypoglycemia Protocol Glucose 15 gm 07/03/24 23:35 Glucose Oral Gel 15 Gm Of Glucse In 37.5 Gm Tube PO PRN PRN Hypoglycemia Protocol Hydralazine HCl 50 mg 07/02/24 09:00 07/04/24 08:52 Hydralazine Hcl 50 Mg Tablet PO 50 mg TID URIAH Administration Meropenem 500 mg in 100 mls @ 200 mls/hr 07/03/24 05:00 07/04/24 04:26 IVPB 200 mls/hr Q24H URIAH Administration Dextrose 1,000 mls @ 100 mls/hr 07/02/24 19:15 07/04/24 04:26 Dextrose 5% 1,000 Ml IV CONT 100 mls/hr .Q10H URIAH Administration Dextrose 1,000 mls @ 100 mls/hr 07/03/24 23:35 Dextrose 5% 1,000 Ml IVPB PRN PRN Hypoglycemia Protocol Insulin Aspart 2 - 5 units 07/04/24 00:00 07/04/24 06:31 Insulin Aspart (*Bkc) 100 Units/Ml SUB-Q Not Given Q6HR URIAH Protocol Radiology Results: ITS Impressions Head CT 07/02/24 06:32 IMPRESSION: 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 Renal Ultrasound 07/02/24 11:50 IMPRESSION: 1. Normal right kidney. 2. Left kidney and bladder not evaluated. Labs Labs: Laboratory Tests 07/04/24 04:49 07/04/24 04:49 Calcium 8.1 L Phosphorus 8.5 H Magnesium 1.6 Total Bilirubin 0.6 AST 54 ALT 21 Alkaline Phosphatase 43 Total Protein 7.0 Albumin 2.9 L Microbiology 07/01/24 23:45 Urine Clean Catch Urine Culture - Preliminary Proteus Mirabilis
[2024-07-04 11:37] LABS: Glucose Point of Care 228 mg/dl (65-105)
[2024-07-04 13:14] LABS: Osmolality, Urine 535 mOsm/kg (50-1200)
[2024-07-04 16:37] LABS: Glucose Point of Care 241 mg/dl (65-105)
[2024-07-04 16:37] LABS: Glucose Point of Care 238 mg/dl (65-105)
[2024-07-04 18:14] LABS: Anion Gap 17 mmol/L (4-12); Calcium 7.8 mg/dL (8.4-10.2); Carbon Dioxide 21 mmol/L (22-30); Chloride 110 mmol/L (98-107); Estimated CRCL calculation 5 ml/min; Estimated Glomerular Filt Rate 5; Glucose 251 mg/dL (65-110); Potassium 3.9 mmol/L (3.4-5.0); Sodium 148 mmol/L (137-145)
--- NOTE | 2024-07-04 18:21 | PM.IMPN ---
Progress Note: A&P Assessment and Plan (1) Hypernatremia: Code(s): E87.0 - Hyperosmolality and hypernatremia Status: Acute Assessment and Plan: Patient brought in for abnormal labs. Na was 163. Chloride 122. Clinically he appears dehydrated. He takes oral intake and suspect he is not taking enough to sustain himself. He was started on 1/2NS and sodium dropped to 160. Changed to D5W and Na improved to 148 RN noted some coughing with feeding but no hypoxia. He is eating better at 75-100% of meals. Consider NGT placement but ultimately would need PEG and it is not safe to sedate the patient since he has heart block. Nephrology following and managing sodium levels. Appreciate their input (2) Renal failure (ARF), acute on chronic: Code(s): N17.9 - Acute kidney failure, unspecified; N18.9 - Chronic kidney disease, unspecified Status: Acute Assessment and Plan: Cr toward the end of his last hospitalization was 3.7-3.9 and stable for a few days. BUN was in the 60's. BUN 199 with Cr 12.8 on admission. Suspect related to dehydration but Urine eos rare and Reymundo 80. FENa 8% with FEUrea 52% more consistent with ATN. Prot/Cr ratio 4.2gm c/w nephrotic range proteinuria as well. Renal US showing nomral right kidney but left kidney and bladder unable to be visualized. LINDSEY probably related to poor oral, worsening CKD IV, diuretic therapy (Lasix and HCTZ that is TID), UTI Lan in place: 200mL -> 200mL -> 1000mL -> 1800 so far today Renal function: Cr up at 11.4 Potassium normal and serum bicarb better at 21 (AG 17) Continue IV fluids but suspect patient will need HD Monitor UOP, electrolytes and renal function (3) Chronic kidney disease, stage IV (severe): Code(s): N18.4 - Chronic kidney disease, stage 4 (severe) Status: Chronic Assessment and Plan: As above. (4) Acute UTI: Code(s): N39.0 - Urinary tract infection, site not specified Status: Acute Assessment and Plan: UA is consistent with UTI. UCx collected. Hx of ESBL EColi so Meropenem started. UCx growing proteus that is mostly pansensitive. Change to Rocephin. (5) A-fib: Code(s): I48.91 - Unspecified atrial fibrillation Status: Acute Assessment and Plan: Tele reviewed showing possible complete heart block. On clonidine patch currently which can slow conduction. Old EKG in September showing sinus rhythm with CHB and junctional escape rhythm. Cardiology note from Sep reviewed: patient with asymptomatic AV dissociation. PM is indicated but they felt not clinically indicated given the patient's poor healthy. EKG showing sinus rhythm with high degree AV block, Rt BBB and marked T wave changes in the anterolateral and inferior leads. Continue clonidine patch for now but start slow weaning He was on Eliquis at the time of last discharge but not listed as home med now. (6) Hypertension: Code(s): I10 - Essential (primary) hypertension Status: Chronic Assessment and Plan: Patient's blood pressure was reviewed on 07/04 Blood pressure remains reasonably well controlled. Will continue current meds as clonidine patch and hydralazine. Wean clonidine (7) Insulin dependent diabetes mellitus: Status: Chronic Assessment and Plan: The patient's blood glucose was reviewed on 07/04 Glucose remains elevated at times. Continue AccuCheks covering with sliding scale. Hypoglycemia protocol available as needed. Continue to monitor. Add Lantus low dose at night. (8) Dementia: Code(s): F03.90 - Unspecified dementia, unspecified severity, without behavioral disturbance, psychotic disturbance, mood disturbance, and anxiety Status: Acute Assessment and Plan: Nonverbal. Not on treatment for dementia. Follow (9) Anemia: Code(s): D64.9 - Anemia, unspecified Status: Acute Assessment and Plan: Hgb dropped to 6.4 from 8.9. No evidence of acute blood loss. Suspect related to IV fluids and that he was hemoconcentrated. Iron studies consistent with anemia of chronic disease probably related to his renal failure Transfused and Hgb better at 7.8 Follow and transfuse as needed. Plan DVT prophylaxis - SCDs. Full code by default. Unclear who the guardian is. Investigation ongoing. Subjective Date/time seen: 07/04/24 18:21 Interval history: 73yo male with dementia, CKD, DM, AFib and HTN here for worsening renal failure. Patieint is nonverbal. He is awake but unable to provide hx. Review of Systems Review of Systems: ROS unobtainable: Yes unobtainable due to mental status Exam Narrative: AF 98.1 100/72 59 16 96% ra Gen - NARD Chest - clear anteriorly CV - Bradycardic. Tele showing bradycardia, jct rhythm Abd - Soft, no apparent tenderness, +BS - Lan secured draining clear yellow urine. Ext - No pedal edema Neuro - Alert. non verbal. contracted. Skin - Warm and dry. Objective Data Vital Signs Vital Signs: Vital Signs - 24 hr 07/03/24 20:28 07/03/24 20:00 07/03/24 20:00 Temperature 98.6 F Pulse Rate 51 L 49 L Respiratory Rate 24 H Blood Pressure 157/77 H Pulse Oximetry 100 Oxygen Delivery Room Air 07/04/24 00:38 07/03/24 22:00 07/04/24 00:00 Temperature 98.4 F Pulse Rate 45 L 45 L 46 L Respiratory Rate 24 H Blood Pressure 161/66 H Pulse Oximetry 99 Oxygen Delivery 07/04/24 00:00 07/04/24 05:04 07/04/24 02:00 Temperature 99.1 F Pulse Rate 47 L 41 L Respiratory Rate 24 H Blood Pressure 171/55 H Pulse Oximetry 100 Oxygen Delivery Room Air 07/04/24 04:00 07/04/24 04:00 07/04/24 08:00 Temperature 99.7 F H Pulse Rate 42 L 47 L Respiratory Rate 16 Blood Pressure 149/67 H Pulse Oximetry 100 Oxygen Delivery Room Air 07/04/24 08:00 07/04/24 11:52 07/04/24 16:00 Temperature 97.9 F 98.1 F Pulse Rate 53 L 108 H Respiratory Rate 16 16 Blood Pressure 160/65 H 100/72 Pulse Oximetry 100 96 Oxygen Delivery Room Air 07/04/24 08:00 07/04/24 10:00 07/04/24 12:00 Temperature Pulse Rate 42 L 45 L 48 L Respiratory Rate Blood Pressure Pulse Oximetry Oxygen Delivery 07/04/24 14:00 07/04/24 16:00 Temperature Pulse Rate 58 L 59 L Respiratory Rate Blood Pressure Pulse Oximetry Oxygen Delivery Intake/Output Intake/Output: Intake & Output 07/01/24 07/02/24 07/03/24 07/04/24 23:59 23:59 23:59 23:59 Intake Total 3810.3 2426.7 2692 Output Total 458 799 7867 1800 Balance -200 3610.3 1426.7 892 Meds/Results Medications: Active Medications Generic Name Dose Route Start Last Admin Trade Name Swathi PRN Reason Stop Dose Admin Atorvastatin Calcium 20 mg 07/02/24 09:00 07/04/24 08:52 Atorvastatin 20 Mg Tablet PO 20 mg DAILY URIAH Administration Clonidine HCl 1 patch 07/03/24 15:05 07/03/24 16:10 Clonidine 0.2 Mg/24 Hr Patch TRANSDERM 1 patch Mo@0900 URIAH Administration Dextrose 12.5 gm 07/03/24 23:35 Dextrose 50% 25 Gm/50 Ml Syringe IV PUSH PRN PRN Hypoglycemia Protocol Ferrous Sulfate 325 mg 07/02/24 09:00 07/04/24 08:52 Ferrous Sulfate [address] PO 08/01/24 08:59 325 mg BID URIAH Administration Glucagon 1 mg 07/03/24 23:35 Glucagon For Inj 1 Mg Vial IM PRN PRN Hypoglycemia Protocol Glucose 15 gm 07/03/24 23:35 Glucose Oral Gel 15 Gm Of Glucse In 37.5 Gm Tube PO PRN PRN Hypoglycemia Protocol Hydralazine HCl 50 mg 07/02/24 09:00 07/04/24 12:52 Hydralazine Hcl 50 Mg Tablet PO 50 mg TID URIAH Administration Meropenem 500 mg in 100 mls @ 200 mls/hr 07/03/24 05:00 07/04/24 04:26 IVPB 200 mls/hr Q24H URIAH Administration Dextrose 1,000 mls @ 100 mls/hr 07/02/24 19:15 07/04/24 14:20 Dextrose 5% 1,000 Ml IV CONT 100 mls/hr .Q10H URIAH Administration Dextrose 1,000 mls @ 100 mls/hr 07/03/24 23:35 Dextrose 5% 1,000 Ml IVPB PRN PRN Hypoglycemia Protocol Insulin Aspart 2 - 5 units 07/04/24 00:00 07/04/24 12:52 Insulin Aspart (*Bkc) 100 Units/Ml SUB-Q 2 units Q6HR URIAH Administration Protocol Radiology Results: ITS Impressions Head CT 07/02/24 06:32 IMPRESSION: 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 Renal Ultrasound 07/02/24 11:50 IMPRESSION: 1. Normal right kidney. 2. Left kidney and bladder not evaluated. Labs Labs: Laboratory Results - last 24 hr 07/01/24 07/02/24 07/03/24 23:45 04:48 20:34 WBC RBC Hgb Hct MCV MCH MCHC RDW Plt Count MPV Immature Gran % (Auto) Neut % (Auto) Lymph % (Auto) [place] % (Auto) Eos % (Auto) Baso % (Auto) Lymph # (Auto) [place] # (Auto) Eos # (Auto) Baso # (Auto) Abs Immat Gran (auto) Absolute Neuts (auto) Absolute Nucleated RBC Nucleated RBC % Platelet Estimate Clumped Platelets % Immature Plt Fraction Hypochromasia Anisocytosis Schistocytes Sodium Potassium Chloride Carbon Dioxide Anion Gap BUN Creatinine Estim Creat Clear Calc Estimated GFR Glucose POC Capillary Glucose 238 H Serum Osmolality 404 H Calcium Phosphorus Magnesium Total Bilirubin AST ALT Alkaline Phosphatase Total Protein Albumin Urine Osmolality 535 07/04/24 07/04/24 07/04/24 00:22 04:49 07:57 WBC 7.7 RBC 2.63 L Hgb 7.8 L Hct 25.8 L MCV 98.1 MCH 29.7 MCHC 30.2 L RDW 14.6 H Plt Count 111 L MPV 13.4 H Immature Gran % (Auto) 0.9 H Neut % (Auto) 76.4 H Lymph % (Auto) 12.7 L [place] % (Auto) 7.1 Eos % (Auto) 2.6 Baso % (Auto) 0.3 Lymph # (Auto) 0.98 [place] # (Auto) 0.6 Eos # (Auto) 0.2 Baso # (Auto) 0.0 Abs Immat Gran (auto) 0.07 H Absolute Neuts (auto) 5.9 Absolute Nucleated RBC 0.000 Nucleated RBC % 0.0 Platelet Estimate Decreased Clumped Platelets Present % Immature Plt Fraction 6.9 Hypochromasia 1+ Anisocytosis 1+ Schistocytes None seen Sodium 152 H Potassium 3.9 Chloride 115 H Carbon Dioxide 21 L Anion Gap 16 H BUN 192 H Creatinine 11.40 H Estim Creat Clear Calc 5 Estimated GFR 5 L Glucose 187 H POC Capillary Glucose 316 H 221 H Serum Osmolality Calcium 8.1 L Phosphorus 8.5 H Magnesium 1.6 Total Bilirubin 0.6 AST 54 ALT 21 Alkaline Phosphatase 43 Total Protein 7.0 Albumin 2.9 L Urine Osmolality 07/04/24 07/04/24 07/04/24 11:13 16:22 16:35 WBC RBC Hgb Hct MCV MCH MCHC RDW Plt Count MPV Immature Gran % (Auto) Neut % (Auto) Lymph % (Auto) [place] % (Auto) Eos % (Auto) Baso % (Auto) Lymph # (Auto) [place] # (Auto) Eos # (Auto) Baso # (Auto) Abs Immat Gran (auto) Absolute Neuts (auto) Absolute Nucleated RBC Nucleated RBC % Platelet Estimate Clumped Platelets % Immature Plt Fraction Hypochromasia Anisocytosis Schistocytes Sodium Potassium Chloride Carbon Dioxide Anion Gap BUN Creatinine Estim Creat Clear Calc Estimated GFR Glucose POC Capillary Glucose 228 H 241 H 238 H Serum Osmolality Calcium Phosphorus Magnesium Total Bilirubin AST ALT Alkaline Phosphatase Total Protein Albumin Urine Osmolality 07/04/24 17:37 WBC RBC Hgb Hct MCV MCH MCHC RDW Plt Count MPV Immature Gran % (Auto) Neut % (Auto) Lymph % (Auto) [place] % (Auto) Eos % (Auto) Baso % (Auto) Lymph # (Auto) [place] # (Auto) Eos # (Auto) Baso # (Auto) Abs Immat Gran (auto) Absolute Neuts (auto) Absolute Nucleated RBC Nucleated RBC % Platelet Estimate Clumped Platelets % Immature Plt Fraction Hypochromasia Anisocytosis Schistocytes Sodium 148 H Potassium 3.9 Chloride 110 H Carbon Dioxide 21 L Anion Gap 17 H BUN Creatinine 11.40 H Estim Creat Clear Calc 5 Estimated GFR 5 L Glucose 251 H POC Capillary Glucose Serum Osmolality Calcium 7.8 L Phosphorus Magnesium Total Bilirubin AST ALT Alkaline Phosphatase Total Protein Albumin Urine Osmolality
[2024-07-04 18:39] LABS: Blood Urea Nitrogen 177 mg/dL (9-20)
[2024-07-04 21:00] LABS: Glucose Point of Care 236 mg/dl (65-105)
[2024-07-04] MEDS: INSULIN GLARGINE (*BKC) 100 UNITS/ML 6 UNITS SUB-Q (21:02)
[2024-07-05] VITALS (17 sets, daily range): BP systolic 131–176; BP diastolic 53–85; PULSE 56–65; RESP 16–23; TEMP 37.1–37.6; O2SAT 94–100
[2024-07-05 00:34] LABS: Glucose Point of Care 218 mg/dl (65-105)
[2024-07-05] MEDS: INSULIN ASPART (*BKC) 100 UNITS/ML SUB-Q ×2 (00:49→11:39)
[2024-07-05] MEDS: DEXTROSE 5% 1,000 ML 1,000 ML 75 ML IV CONT ×2 (01:02→14:14)
[2024-07-05 05:36] LABS: Basophils Percent Auto 0.1 % (0.2-1.2); Eosinophils Absolute Auto 0.3 K/mm3 (0-0.3); Eosinophils Percent Auto 3.6 % (0-4.4); Hematocrit 25.7 % (42.0-52.0); Hemoglobin 7.9 g/dL (14.0-18.0); Immature Granulocyte Absolute 0.07 K/mm3 (0.00-0.031); Immature Granulocyte Percent A 0.8 % (0-0.5); Immature Platelet Fraction Pct 8.6 % (0.9-11.2); Lymphocytes Absolute Auto 1.35 K/mm3 (0.9-3.2); Mean Corpuscular HGB Conc 30.7 g/dl (32-36); Mean Corpuscular Hemoglobin 29.6 pg (26-34); Mean Corpuscular Volume 96.3 fl (80-100); Mean Platelet Volume 13.6 fl (7.4-10.4); Monocytes Absolute Auto 0.8 K/mm3 (0.1-0.6); Neutrophils Percent Auto 70.5 % (45.5-73.1); Platelet Count Result 102 k/mm3 (150-375); Red Blood Count 2.67 M/mm3 (4.6-6.20); Red Cell Distribution Width 13.9 % (11.5-14.5); White Blood Count 8.5 K/mm3 (4.5-10.0)
[2024-07-05 05:46] LABS: Alanine Aminotransferase 32 U/L (6-50); Albumin Level 2.9 g/dL (3.5-5.1); Alkaline Phosphatase 61 U/L (38-126); Anion Gap 17 mmol/L (4-12); Aspartate Amino Transferase 63 U/L (17-59); Bilirubin,Total 0.5 mg/dL (0.2-1.3); Calcium 7.6 mg/dL (8.4-10.2); Carbon Dioxide 20 mmol/L (22-30); Chloride 110 mmol/L (98-107); Estimated CRCL calculation 5 ml/min; Estimated Glomerular Filt Rate 5; Glucose 194 mg/dL (65-110); Magnesium 1.5 mg/dL (1.6-2.3); Phosphorus 7.5 mg/dL (2.5-4.5); Potassium 3.5 mmol/L (3.4-5.0); Sodium 147 mmol/L (137-145)
[2024-07-05 05:53] LABS: Blood Urea Nitrogen 173 mg/dL (9-20)
[2024-07-05 08:15] LABS: Glucose Point of Care 199 mg/dl (65-105)
[2024-07-05] MEDS: ATORVASTATIN 20 MG TABLET PO (08:50)
[2024-07-05] MEDS: hydrALAZINE HCL 50 MG TABLET PO ×2 (08:50→13:09)
[2024-07-05] MEDS: FERROUS SULFATE 325 MG TABLET DR PO (08:50)
--- NOTE | 2024-07-05 08:59 | P.PNIM_ITS ---
Progress Note: A&P Assessment and Plan (1) A-fib: Code(s): I48.91 - Unspecified atrial fibrillation Status: Acute (2) LINDSEY (acute kidney injury): Code(s): N17.9 - Acute kidney failure, unspecified Status: Acute Plan (1) Hypernatremia: Code(s): E87.0 - Hyperosmolality and hypernatremia Status: Acute Assessment and Plan: Patient brought in for abnormal labs. Na was 163. Chloride 122. Clinically he appears dehydrated. He takes oral intake and suspect he is not taking enough to sustain himself. He was started on 1/2NS and sodium dropped to 160. Changed to D5W and Na improved to 148 RN noted some coughing with feeding but no hypoxia. He is eating better at 75- 100% of meals. Nephrology following and managing sodium levels. Appreciate their input Sodium level is trending down, 147 today Suspecting dysphagia vs inadequate feeding Consult speech evaluation and modified barium swallowing test per based on speech evaluation If dysphagia is conformed, consider NGT placement or PEG Patient is able to drink water, and able to eat per nurse report (2) Renal failure (ARF), acute on chronic: Code(s): N17.9 - Acute kidney failure, unspecified; N18.9 - Chronic kidney disease, unspecified Status: Acute Assessment and Plan: Cr toward the end of his last hospitalization was 3.7-3.9 and stable for a few days. BUN was in the 60's. BUN 199 with Cr 12.8 on admission. Suspect related to dehydration but Urine eos rare and Reymundo 80. FENa 8% with FEUrea 52% more consistent with ATN. Prot/Cr ratio 4.2gm c/w nephrotic range proteinuria as well. Renal US showing nomral right kidney but left kidney and bladder unable to be visualized. 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 (4) Acute UTI: Code(s): N39.0 - Urinary tract infection, site not specified Status: Acute Assessment and Plan: UA is consistent with UTI. UCx collected. Hx of ESBL EColi so Meropenem started. UCx growing proteus that is mostly pansensitive. Change to Rocephin. (5) A-fib: Code(s): I48.91 - Unspecified atrial fibrillation Status: Acute Assessment and Plan: Tele reviewed showing possible complete heart block. On clonidine patch currently which can slow conduction. Old EKG in September showing sinus rhythm with CHB and junctional escape rhythm. Cardiology note from Sep reviewed: patient with asymptomatic AV dissociation. PM is indicated but they felt not clinically indicated given the patient's poor healthy. EKG showing sinus rhythm with high degree AV block, Rt BBB and marked T wave changes in the anterolateral and inferior leads. Continue clonidine patch for now but start slow weaning He was on Eliquis at the time of last discharge but not listed as home med now. (6) Hypertension: Code(s): I10 - Essential (primary) hypertension Status: Chronic Assessment and Plan: Patient's blood pressure was reviewed on 07/04 Blood pressure remains reasonably well controlled. Will continue current meds as clonidine patch and hydralazine. Wean clonidine (7) Insulin dependent diabetes mellitus: Status: Chronic Assessment and Plan: The patient's blood glucose was reviewed on 07/04 Glucose remains elevated at times. Continue AccuCheks covering with sliding scale. Hypoglycemia protocol available as needed. Continue to monitor. Add Lantus low dose at night. (8) Dementia: Code(s): F03.90 - Unspecified dementia, unspecified severity, without behavioral disturbance, psychotic disturbance, mood disturbance, and anxiety Status: Acute Assessment and Plan: Nonverbal. Not on treatment for dementia. Follow (9) Anemia: Code(s): D64.9 - Anemia, unspecified Status: Acute Assessment and Plan: Hgb dropped to 6.4 from 8.9. No evidence of acute blood loss. Suspect related to IV fluids and that he was hemoconcentrated. Iron studies consistent with anemia of chronic disease probably related to his renal failure Transfused and Hgb better at 7.8 Follow and transfuse as needed. Plan DVT prophylaxis - SCDs. Full code by default. Unclear who the guardian is. Investigation ongoing. Subjective Date/time seen: 07/05/24 08:59 Interval history: I saw and examined the patient today in presents of patient's nurse, patient was able to follow command, cannot provide history. Patient was able to drink water that was provided by patient's nurse. Patient is afebrile, blood pressure stable, Exam Narrative: GENERAL: in no acute distress. Well-nourished. - EYES: EOMI. Anicteric. - HENT: dry mucous membranes. - LUNGS: Clear to auscultation bilateral ly, no wheezing, rhonchi, or rales. - CARDIOVASCULAR: Regular rate and rhyth m. No murmur. No JVD. - ABDOMEN: Soft, non-tender and non-dist ended. No palpable masses. - EXTREMITIES: No edema. Peripheral puls es 2+. Non-tender. - NEUROLOGIC: No focal neurological defi cits. CN II-XII grossly intact. Contracture of lower extremities, - PSYCHIATRIC: Alert, able to follow up some commands, not oriented x 3. Appropriate mood and affect. - SKIN: No rashes or lesions. Warm. - LYMPH: No cervical lymphadenopathy. Objective Data Vital Signs Vital Signs: Vital Signs - 24 hr 07/04/24 11:52 07/04/24 16:00 07/04/24 10:00 Temperature 97.9 F 98.1 F Pulse Rate 53 L 108 H 45 L Respiratory Rate 16 16 Blood Pressure 160/65 H 100/72 Pulse Oximetry 100 96 Oxygen Delivery 07/04/24 12:00 07/04/24 14:00 07/04/24 16:00 Temperature Pulse Rate 48 L 58 L 59 L Respiratory Rate Blood Pressure Pulse Oximetry Oxygen Delivery 07/04/24 12:00 07/04/24 18:00 07/04/24 16:00 Temperature Pulse Rate 56 L Respiratory Rate Blood Pressure Pulse Oximetry Oxygen Delivery Room Air Room Air 07/04/24 20:31 07/04/24 20:00 07/04/24 23:58 Temperature 97.9 F 99.4 F Pulse Rate 111 H 65 Respiratory Rate 16 22 H Blood Pressure 110/52 L 187/70 H Pulse Oximetry 95 99 Oxygen Delivery Room Air 07/04/24 20:00 07/04/24 22:00 07/05/24 00:00 Temperature Pulse Rate 59 L 61 Respiratory Rate Blood Pressure Pulse Oximetry Oxygen Delivery Room Air 07/05/24 00:00 07/05/24 02:00 07/05/24 04:41 Temperature 99.6 F Pulse Rate 63 60 56 L Respiratory Rate 23 H Blood Pressure 176/77 H Pulse Oximetry 100 Oxygen Delivery 07/05/24 04:00 07/05/24 04:00 07/05/24 06:00 Temperature Pulse Rate 59 L 61 Respiratory Rate Blood Pressure Pulse Oximetry Oxygen Delivery Room Air 07/05/24 07:36 Temperature 99.3 F Pulse Rate 57 L Respiratory Rate 16 Blood Pressure 161/70 H Pulse Oximetry 100 Oxygen Delivery Intake/Output Intake/Output: Intake & Output 07/02/24 07/03/24 07/04/24 07/05/24 23:59 23:59 23:59 23:59 Intake Total 3810.3 2426.7 3730.3 331.7 Output Total 200 1000 1800 650 Balance 3610.3 1426.7 1930.3 -318.3 Meds/Results Medications: Active Medications Generic Name Dose Route Start Last Admin Trade Name Freq PRN Reason Stop Dose Admin Atorvastatin Calcium 20 mg 07/02/24 09:00 07/04/24 08:52 Atorvastatin 20 Mg Tablet PO 20 mg DAILY URIAH Administration Clonidine HCl 1 patch 07/03/24 15:05 07/03/24 16:10 Clonidine 0.2 Mg/24 Hr Patch TRANSDERM 1 patch Mo@0900 URIAH Administration Dextrose 12.5 gm 07/03/24 23:35 Dextrose 50% 25 Gm/50 Ml Syringe IV PUSH PRN PRN Hypoglycemia Protocol Ferrous Sulfate 325 mg 07/02/24 09:00 07/04/24 18:31 Ferrous Sulfate [address] PO 08/01/24 08:59 325 mg BID URIAH Administration Glucagon 1 mg 07/03/24 23:35 Glucagon For Inj 1 Mg Vial IM PRN PRN Hypoglycemia Protocol Glucose 15 gm 07/03/24 23:35 Glucose Oral Gel 15 Gm Of Glucse In 37.5 Gm Tube PO PRN PRN Hypoglycemia Protocol Hydralazine HCl 50 mg 07/02/24 09:00 07/04/24 18:31 Hydralazine Hcl 50 Mg Tablet PO 50 mg TID URIAH Administration Dextrose 1,000 mls @ 75 mls/hr 07/02/24 19:15 07/05/24 01:02 Dextrose 5% 1,000 Ml IV CONT 75 mls/hr .[id number] URIAH Administration Dextrose 1,000 mls @ 100 mls/hr 07/03/24 23:35 Dextrose 5% 1,000 Ml IVPB PRN PRN Hypoglycemia Protocol Ceftriaxone Sodium 1 gm in 50 mls @ 100 mls/hr 07/05/24 05:00 07/05/24 05:57 Rocephin 1 Gm/Ns 50 Ml IVPB 07/08/24 05:29 Infused Q24H URIAH Infusion Insulin Aspart 2 - 5 units 07/04/24 00:00 07/05/24 06:24 Insulin Aspart (*Bkc) 100 Units/Ml SUB-Q Not Given Q6HR URIAH Protocol Insulin Glargine 6 units 07/04/24 21:00 07/04/24 21:02 Insulin Glargine (*Bkc) 100 Units/Ml SUB-Q 6 units HS URIAH Administration Radiology Results: ITS Impressions Head CT 07/02/24 06:32 IMPRESSION: 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 Renal Ultrasound 07/02/24 11:50 IMPRESSION: 1. Normal right kidney. 2. Left kidney and bladder not evaluated. Labs Labs: Laboratory Results - last 24 hr 07/01/24 07/02/24 07/04/24 23:45 04:48 11:13 WBC RBC Hgb Hct MCV MCH MCHC RDW Plt Count MPV Immature Gran % (Auto) Neut % (Auto) Lymph % (Auto) [place] % (Auto) Eos % (Auto) Baso % (Auto) Lymph # (Auto) [place] # (Auto) Eos # (Auto) Baso # (Auto) Abs Immat Gran (auto) Absolute Neuts (auto) Absolute Nucleated RBC Nucleated RBC % % Immature Plt Fraction Sodium Potassium Chloride Carbon Dioxide Anion Gap BUN Creatinine Estim Creat Clear Calc Estimated GFR Glucose POC Capillary Glucose 228 H Serum Osmolality 404 H Calcium Phosphorus Magnesium Total Bilirubin AST ALT Alkaline Phosphatase Total Protein Albumin Urine Osmolality 535 07/04/24 07/04/24 07/04/24 16:22 16:35 17:37 WBC RBC Hgb Hct MCV MCH MCHC RDW Plt Count MPV Immature Gran % (Auto) Neut % (Auto) Lymph % (Auto) [place] % (Auto) Eos % (Auto) Baso % (Auto) Lymph # (Auto) [place] # (Auto) Eos # (Auto) Baso # (Auto) Abs Immat Gran (auto) Absolute Neuts (auto) Absolute Nucleated RBC Nucleated RBC % % Immature Plt Fraction Sodium 148 H Potassium 3.9 Chloride 110 H Carbon Dioxide 21 L Anion Gap 17 H BUN 177 H D Creatinine 11.40 H Estim Creat Clear Calc 5 Estimated GFR 5 L Glucose 251 H POC Capillary Glucose 241 H 238 H Serum Osmolality Calcium 7.8 L Phosphorus Magnesium Total Bilirubin AST ALT Alkaline Phosphatase Total Protein Albumin Urine Osmolality 07/04/24 07/05/24 07/05/24 20:58 00:29 05:06 WBC 8.5 RBC 2.67 L Hgb 7.9 L Hct 25.7 L MCV 96.3 MCH 29.6 MCHC 30.7 L RDW 13.9 Plt Count 102 L MPV 13.6 H Immature Gran % (Auto) 0.8 H Neut % (Auto) 70.5 Lymph % (Auto) 16.0 L [place] % (Auto) 9.0 H Eos % (Auto) 3.6 Baso % (Auto) 0.1 L Lymph # (Auto) 1.35 [place] # (Auto) 0.8 H Eos # (Auto) 0.3 Baso # (Auto) 0.0 Abs Immat Gran (auto) 0.07 H Absolute Neuts (auto) 6.0 Absolute Nucleated RBC 0.000 Nucleated RBC % 0.0 % Immature Plt Fraction 8.6 Sodium 147 H Potassium 3.5 Chloride 110 H Carbon Dioxide 20 L Anion Gap 17 H BUN 173 H Creatinine 11.40 H Estim Creat Clear Calc 5 Estimated GFR 5 L Glucose 194 H POC Capillary Glucose 236 H 218 H Serum Osmolality Calcium 7.6 L Phosphorus 7.5 H Magnesium 1.5 L Total Bilirubin 0.5 AST 63 H ALT 32 Alkaline Phosphatase 61 Total Protein 7.0 Albumin 2.9 L Urine Osmolality 07/05/24 07:39 WBC RBC Hgb Hct MCV MCH MCHC RDW Plt Count MPV Immature Gran % (Auto) Neut % (Auto) Lymph % (Auto) [place] % (Auto) Eos % (Auto) Baso % (Auto) Lymph # (Auto) [place] # (Auto) Eos # (Auto) Baso # (Auto) Abs Immat Gran (auto) Absolute Neuts (auto) Absolute Nucleated RBC Nucleated RBC % % Immature Plt Fraction Sodium Potassium Chloride Carbon Dioxide Anion Gap BUN Creatinine Estim Creat Clear Calc Estimated GFR Glucose POC Capillary Glucose 199 H Serum Osmolality Calcium Phosphorus Magnesium Total Bilirubin AST ALT Alkaline Phosphatase Total Protein Albumin Urine Osmolality
[2024-07-05 11:37] LABS: Glucose Point of Care 235 mg/dl (65-105)
--- NOTE | 2024-07-05 13:23 | PM.PNNEP ---
Subjective Date/time seen: 07/05/24 13:23 Objective Data Vital Signs Vital Signs: Vital Signs Temp Pulse Resp BP Pulse Ox O2 Del Method 07/05/24 11:30 99.6 F 60 16 148/67 H 95 07/05/24 07:36 99.3 F 57 L 16 161/70 H 100 07/05/24 06:00 61 07/05/24 04:00 Room Air 07/05/24 04:00 59 L 07/05/24 04:41 99.6 F 56 L 23 H 176/77 H 100 07/05/24 02:00 60 07/05/24 00:00 63 07/05/24 00:00 Room Air 07/04/24 22:00 61 07/04/24 20:00 59 L 07/04/24 23:58 99.4 F 65 22 H 187/70 H 99 07/04/24 20:00 Room Air 07/04/24 20:31 97.9 F 111 H 16 110/52 L 95 07/04/24 18:00 56 L Intake/Output Intake/Output: Intake & Output 07/02/24 07/03/24 07/04/24 07/05/24 23:59 23:59 23:59 23:59 Intake Total 3810.3 2426.7 3730.3 1681.7 Output Total 200 1000 1800 650 Balance 3610.3 1426.7 1930.3 1031.7 Meds/Results Medications: Active Medications Generic Name Dose Route Start Last Admin Trade Name Freq PRN Reason Stop Dose Admin Amoxicillin/Clavulanate Potassium 1 tablet 07/06/24 09:00 Amoxicillin/Clavulanate K 250-125 Mg Tab PO 07/08/24 09:01 DAILY URIAH Atorvastatin Calcium 20 mg 07/02/24 09:00 07/05/24 08:50 Atorvastatin 20 Mg Tablet PO 20 mg DAILY URIAH Administration Clonidine HCl 1 patch 07/03/24 15:05 07/03/24 16:10 Clonidine 0.2 Mg/24 Hr Patch TRANSDERM 1 patch Mo@0900 URIAH Administration Dextrose 12.5 gm 07/03/24 23:35 Dextrose 50% 25 Gm/50 Ml Syringe IV PUSH PRN PRN Hypoglycemia Protocol Ferrous Sulfate 325 mg 07/02/24 09:00 07/05/24 08:50 Ferrous Sulfate [address] PO 08/01/24 08:59 325 mg BID URIAH Administration Glucagon 1 mg 07/03/24 23:35 Glucagon For Inj 1 Mg Vial IM PRN PRN Hypoglycemia Protocol Glucose 15 gm 07/03/24 23:35 Glucose Oral Gel 15 Gm Of Glucse In 37.5 Gm Tube PO PRN PRN Hypoglycemia Protocol Hydralazine HCl 50 mg 07/02/24 09:00 07/05/24 13:09 Hydralazine Hcl 50 Mg Tablet PO 50 mg TID URIAH Administration Dextrose 1,000 mls @ 75 mls/hr 07/02/24 19:15 07/05/24 14:14 Dextrose 5% 1,000 Ml IV CONT 75 mls/hr .[id number] URIAH Administration Dextrose 1,000 mls @ 100 mls/hr 07/03/24 23:35 Dextrose 5% 1,000 Ml IVPB PRN PRN Hypoglycemia Protocol Insulin Aspart 2 - 5 units 07/04/24 00:00 07/05/24 11:39 Insulin Aspart (*Bkc) 100 Units/Ml SUB-Q 2 units Q6HR URIAH Administration Protocol Insulin Glargine 6 units 07/04/24 21:00 07/04/24 21:02 Insulin Glargine (*Bkc) 100 Units/Ml SUB-Q 6 units HS URIAH Administration Radiology Results: ITS Impressions Head CT 07/02/24 06:32 IMPRESSION: 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 Renal Ultrasound 07/02/24 11:50 IMPRESSION: 1. Normal right kidney. 2. Left kidney and bladder not evaluated. Labs Labs: Laboratory Tests 07/05/24 05:06 07/05/24 05:06 Calcium 7.6 L Phosphorus 7.5 H Magnesium 1.5 L Total Bilirubin 0.5 AST 63 H ALT 32 Alkaline Phosphatase 61 Total Protein 7.0 Albumin 2.9 L Microbiology 07/01/24 23:45 Urine Clean Catch Urine Culture - Final Proteus Mirabilis
[2024-07-05 15:51] LABS: Glucose Point of Care 261 mg/dl (65-105)
--- NOTE | 2024-07-05 16:20 | PCSTNOTE ---
Please refer to the Bedside Swallow Evaluation in the EMR. Please note, silent aspiration cannot be ruled out at bedside.
[2024-07-05 18:15] LABS: Glucose Point of Care 277 mg/dl (65-105)
[2024-07-05 20:33] LABS: Glucose Point of Care 271 mg/dl (65-105)
[2024-07-05] MEDS: INSULIN GLARGINE (*BKC) 100 UNITS/ML 6 UNITS SUB-Q (21:05)
[2024-07-06] VITALS (18 sets, daily range): BP systolic 116–161; BP diastolic 64–85; PULSE 57–72; RESP 18–30; TEMP 36.6–37.6; O2SAT 95–100
[2024-07-06] MEDS: INSULIN ASPART (*BKC) 100 UNITS/ML SUB-Q ×2 (01:32→06:28)
[2024-07-06 01:41] LABS: Glucose Point of Care 222 mg/dl (65-105)
[2024-07-06] MEDS: DEXTROSE 5% 1,000 ML 1,000 ML 75 ML IV CONT (03:40)
[2024-07-06 06:27] LABS: Glucose Point of Care 202 mg/dl (65-105)
[2024-07-06 07:31] LABS: Glucose Point of Care 174 mg/dl (65-105)
[2024-07-06 09:20] LABS: Basophils Percent Auto 0.1 % (0.2-1.2); Eosinophils Absolute Auto 0.1 K/mm3 (0-0.3); Eosinophils Percent Auto 0.6 % (0-4.4); Hematocrit 26.5 % (42.0-52.0); Hemoglobin 8.4 g/dL (14.0-18.0); Immature Granulocyte Absolute 0.06 K/mm3 (0.00-0.031); Immature Granulocyte Percent A 0.5 % (0-0.5); Immature Platelet Fraction Pct 9.5 % (0.9-11.2); Lymphocytes Absolute Auto 1.19 K/mm3 (0.9-3.2); Lymphocytes Percent Auto 10.8 % (18.3-44.2); Mean Corpuscular HGB Conc 31.7 g/dl (32-36); Mean Corpuscular Hemoglobin 29.7 pg (26-34); Mean Corpuscular Volume 93.6 fl (80-100); Monocytes Absolute Auto 0.9 K/mm3 (0.1-0.6); Monocytes Percent Auto 7.8 % (2.6-8.5); Neutrophils Absolute Auto 8.9 K/mm3 (1.3-6.7); Neutrophils Percent Auto 80.2 % (45.5-73.1); Platelet Count Result 102 k/mm3 (150-375); Red Blood Count 2.83 M/mm3 (4.6-6.20); Red Cell Distribution Width 13.5 % (11.5-14.5)
[2024-07-06] MEDS: hydrALAZINE HCL 50 MG TABLET PO ×3 (09:23→17:04)
[2024-07-06] MEDS: ATORVASTATIN 20 MG TABLET PO (09:23)
[2024-07-06] MEDS: FERROUS SULFATE 325 MG TABLET DR PO ×2 (09:23→17:04)
[2024-07-06] MEDS: AMOXICILLIN/CLAVULANATE K 250-125 MG TAB 1 TABLET PO (09:23)
[2024-07-06 09:44] LABS: Alanine Aminotransferase 43 U/L (6-50); Albumin Level 2.9 g/dL (3.5-5.1); Alkaline Phosphatase 51 U/L (38-126); Anion Gap 17 mmol/L (4-12); Aspartate Amino Transferase 73 U/L (17-59); Bilirubin,Total 0.4 mg/dL (0.2-1.3); Calcium 7.3 mg/dL (8.4-10.2); Carbon Dioxide 24 mmol/L (22-30); Chloride 106 mmol/L (98-107); Estimated CRCL calculation 5 ml/min; Estimated Glomerular Filt Rate 6; Glucose 166 mg/dL (65-110); Potassium 3.2 mmol/L (3.4-5.0); Sodium 147 mmol/L (137-145)
[2024-07-06 09:52] LABS: Blood Urea Nitrogen 173 mg/dL (9-20)
[2024-07-06 11:44] LABS: Glucose Point of Care 162 mg/dl (65-105)
--- NOTE | 2024-07-06 12:06 | PCNFU ---
Nutrition Follow-Up Complete: Suboptimal po intake related to appetite and feeding ability as evidenced by nursing report and charted intake Goal:PO intake greater than 50% of meals and supplements Pt not meeting goal. Currently NPO Pt current nutrition is NPO. Nutrition recommendation: pending MBS results and speech recommendations Last recorded weight is 62.7 kg. Bowel Motility: +BM 07/02 Labs Reviewed: Hgb:8.4, HCT:26.5, NA:147, K:3.2, BUN:173, Cr:11, Glu:174 Meds Noted: insulin Skin: no skin issues noted Additional Notes: Pt is NPO at this time, orders for an MBS to evaluate swallow fuction. Nursing reports a large emesis this morning even without eating anything. Monitor for MBS results, speech recommendations, diet orders, wt, labs. Follow up in 3 days.
[2024-07-06] MEDS: DEXTROSE 5% 1,000 ML 1,000 ML 100 ML IV CONT (12:49)
[2024-07-06 15:49] LABS: Glucose Point of Care 172 mg/dl (65-105)
--- NOTE | 2024-07-06 15:58 | PM.IMPN ---
Progress Note: A&P Assessment and Plan (1) A-fib: Code(s): I48.91 - Unspecified atrial fibrillation Status: Acute (2) LINDSEY (acute kidney injury): Code(s): N17.9 - Acute kidney failure, unspecified Status: Acute Plan # Hypernatremia: Patient brought in for abnormal labs. Na was 163. Chloride 122. Clinically he appeared dehydrated. He takes oral intake and suspect he is not taking enough to sustain himself. He was started on 1/2NS and sodium dropped to 160. Changed to D5W and Na improved to 148 RN noted some coughing with feeding but no hypoxia. He is eating better at 75-100% of meals. Nephrology following and managing sodium levels. Appreciate their input Sodium level is trending down, 147 # poor p.o. intake: Suspecting dysphagia vs inadequate feeding Consult speech evaluation and modified barium swallowing test per based on speech evaluation however could not be done due to emesis If dysphagia is conformed, consider NGT placement or PEG Patient is able to drink water, and able to eat per nurse report # Renal failure (ARF), acute on chronic: Cr toward the end of his last hospitalization was 3.7-3.9 and stable for a few days. BUN was in the 60's. BUN 199 with Cr 12.8 on admission. Suspect related to dehydration but Urine eos rare and Reymundo 80. FENa 8% with FEUrea 52% more consistent with ATN. Prot/Cr ratio 4.2gm c/w nephrotic range proteinuria as well. Renal US showing nomral right kidney but left kidney and bladder unable to be visualized. 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 # Acute UTI: UA is consistent with UTI. UCx collected. Hx of ESBL EColi so Meropenem started. UCx growing proteus that is mostly pansensitive. Change to Rocephin. # A-fib: Tele reviewed showing possible complete heart block. On clonidine patch currently which can slow conduction. Old EKG in September showing sinus rhythm with CHB and junctional escape rhythm. Cardiology note from Sep reviewed: patient with asymptomatic AV dissociation. PM is indicated but they felt not clinically indicated given the patient's poor healthy. EKG showing sinus rhythm with high degree AV block, Rt BBB and marked T wave changes in the anterolateral and inferior leads. Continue clonidine patch for now but start slow weaning He was on Eliquis at the time of last discharge but not listed as home med now. # Hypertension: Patient's blood pressure was reviewed on 07/04 Blood pressure remains reasonably well controlled. Will continue current meds as clonidine patch and hydralazine. Wean clonidine # Insulin dependent diabetes mellitus: Continue AccuCheks covering with sliding scale. Hypoglycemia protocol available as needed. Continue to monitor. Add Lantus low dose at night. # Dementia: Nonverbal. Not on treatment for dementia. Follow # Anemia: Hgb dropped to 6.4 from 8.9. No evidence of acute blood loss. Suspect related to IV fluids and that he was hemoconcentrated. Iron studies consistent with anemia of chronic disease probably related to his renal failure Transfused and Hgb better at 7.8 Follow and transfuse as needed. # DVT prophylaxis - SCDs. # Full code by default. Unclear who the guardian is. Investigation ongoing. # nausea vomiting: Will get x-ray KUB to further evaluate. Subjective Date/time seen: 07/06/24 15:58 Interval history: no overnight events. Patient nonverbal. Reports no acute issues. Had an explosive emesis earlier today Review of Systems Review of Systems: ROS unobtainable: Yes unobtainable due to mental status Exam Narrative: GENERAL: in no acute distress. Well-nourished. - EYES: EOMI. Anicteric. - HENT: dry mucous membranes. - LUNGS: Clear to auscultation bilaterally, no wheezing, rhonchi, or rales. - CARDIOVASCULAR: Regular rate and rhythm. No murmur. No JVD. - ABDOMEN: Soft, non-tender and non-distended. No palpable masses. - EXTREMITIES: No edema. Peripheral pulses 2+. Non-tender. - NEUROLOGIC: No focal neurological deficits. CN II-XII grossly intact. Contracture of lower extremities, - PSYCHIATRIC: Alert, able to follow up some commands, not oriented x 3. Appropriate mood and affect. - SKIN: No rashes or lesions. Warm. - LYMPH: No cervical lymphadenopathy. Objective Data Vital Signs Vital Signs: Vital Signs - 24 hr 07/05/24 16:00 07/05/24 18:00 07/05/24 20:15 Temperature 99.5 F Pulse Rate 60 63 57 L Respiratory Rate 18 Blood Pressure 131/85 Pulse Oximetry 98 Oxygen Delivery 07/05/24 20:00 07/06/24 00:39 07/05/24 20:00 Temperature 99.6 F Pulse Rate 58 L 56 L Respiratory Rate 18 Blood Pressure 144/67 H Pulse Oximetry 100 Oxygen Delivery Room Air 07/05/24 22:00 07/06/24 00:00 07/06/24 00:00 Temperature Pulse Rate 60 57 L Respiratory Rate Blood Pressure Pulse Oximetry Oxygen Delivery Room Air 07/06/24 02:00 07/06/24 04:31 07/06/24 04:00 Temperature 99.0 F Pulse Rate 60 67 Respiratory Rate 18 Blood Pressure 153/64 H Pulse Oximetry 96 Oxygen Delivery Room Air 07/06/24 04:00 07/06/24 06:00 07/06/24 07:48 Temperature 99.1 F Pulse Rate 71 69 68 Respiratory Rate 28 H Blood Pressure 116/80 Pulse Oximetry 100 Oxygen Delivery 07/06/24 11:19 07/06/24 08:00 07/06/24 10:00 Temperature 97.8 F Pulse Rate 60 68 66 Respiratory Rate 30 H Blood Pressure 155/81 H Pulse Oximetry 95 Oxygen Delivery 07/06/24 12:00 07/06/24 08:00 07/06/24 12:00 Temperature Pulse Rate 68 68 68 Respiratory Rate Blood Pressure Pulse Oximetry Oxygen Delivery Room Air Room Air 07/06/24 14:00 07/06/24 15:16 Temperature 99.7 F H Pulse Rate 72 70 Respiratory Rate 20 Blood Pressure 131/83 Pulse Oximetry 100 Oxygen Delivery Intake/Output Intake/Output: Intake & Output 07/03/24 07/04/24 07/05/24 07/06/24 23:59 23:59 23:59 23:59 Intake Total 2426.7 3730.3 1681.7 1806.7 Output Total 1000 1800 1450 1300 Balance 1426.7 1930.3 231.7 506.7 Meds/Results Medications: Active Medications Generic Name Dose Route Start Last Admin Trade Name Swathi PRN Reason Stop Dose Admin Atorvastatin Calcium 20 mg 07/02/24 09:00 07/06/24 09:23 Atorvastatin 20 Mg Tablet PO 20 mg DAILY URIAH Administration Clonidine HCl 1 patch 07/03/24 15:05 07/03/24 16:10 Clonidine 0.2 Mg/24 Hr Patch TRANSDERM 1 patch Mo@0900 URIAH Administration Dextrose 12.5 gm 07/03/24 23:35 Dextrose 50% 25 Gm/50 Ml Syringe IV PUSH PRN PRN Hypoglycemia Protocol Ferrous Sulfate 325 mg 07/02/24 09:00 07/06/24 09:23 Ferrous Sulfate [address] PO 08/01/24 08:59 325 mg BID URIAH Administration Glucagon 1 mg 07/03/24 23:35 Glucagon For Inj 1 Mg Vial IM PRN PRN Hypoglycemia Protocol Glucose 15 gm 07/03/24 23:35 Glucose Oral Gel 15 Gm Of Glucse In 37.5 Gm Tube PO PRN PRN Hypoglycemia Protocol Hydralazine HCl 50 mg 07/02/24 09:00 07/06/24 12:50 Hydralazine Hcl 50 Mg Tablet PO 50 mg TID URIAH Administration Dextrose 1,000 mls @ 100 mls/hr 07/02/24 19:15 07/06/24 12:49 Dextrose 5% 1,000 Ml IV CONT 100 mls/hr .Q10H URIAH Administration Dextrose 1,000 mls @ 100 mls/hr 07/03/24 23:35 Dextrose 5% 1,000 Ml IVPB PRN PRN Hypoglycemia Protocol Ceftriaxone Sodium 1 gm in 50 mls @ 100 mls/hr 07/07/24 09:00 Rocephin 1 Gm/Ns 50 Ml IVPB 07/08/24 09:29 DAILY ON LICENSE OF [facility] Insulin Aspart 2 - 5 units 07/04/24 00:00 07/06/24 12:05 Insulin Aspart (*Bkc) 100 Units/Ml SUB-Q Not Given Q6HR ON LICENSE OF [facility] Protocol Insulin Glargine 6 units 07/04/24 21:00 07/05/24 21:05 Insulin Glargine (*Bkc) 100 Units/Ml SUB-Q 6 units HS URIAH Administration Radiology Results: ITS Impressions Head CT 07/02/24 06:32 IMPRESSION: 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 Renal Ultrasound 07/02/24 11:50 IMPRESSION: 1. Normal right kidney. 2. Left kidney and bladder not evaluated. Labs Labs: Laboratory Results - last 24 hr 07/05/24 07/05/24 07/06/24 18:09 20:29 01:35 WBC RBC Hgb Hct MCV MCH MCHC RDW Plt Count MPV Immature Gran % (Auto) Neut % (Auto) Lymph % (Auto) [place] % (Auto) Eos % (Auto) Baso % (Auto) Lymph # (Auto) [place] # (Auto) Eos # (Auto) Baso # (Auto) Abs Immat Gran (auto) Absolute Neuts (auto) Absolute Nucleated RBC Nucleated RBC % % Immature Plt Fraction Sodium Potassium Chloride Carbon Dioxide Anion Gap BUN Creatinine Estim Creat Clear Calc Estimated GFR Glucose POC Capillary Glucose 277 H 271 H 222 H Calcium Total Bilirubin AST ALT Alkaline Phosphatase Total Protein Albumin 07/06/24 07/06/24 07/06/24 06:25 07:28 09:12 WBC 11.0 H RBC 2.83 L Hgb 8.4 L Hct 26.5 L MCV 93.6 MCH 29.7 MCHC 31.7 L RDW 13.5 Plt Count 102 L MPV 14.0 H Immature Gran % (Auto) 0.5 Neut % (Auto) 80.2 H Lymph % (Auto) 10.8 L [place] % (Auto) 7.8 Eos % (Auto) 0.6 Baso % (Auto) 0.1 L Lymph # (Auto) 1.19 [place] # (Auto) 0.9 H Eos # (Auto) 0.1 Baso # (Auto) 0.0 Abs Immat Gran (auto) 0.06 H Absolute Neuts (auto) 8.9 H Absolute Nucleated RBC 0.000 Nucleated RBC % 0.0 % Immature Plt Fraction 9.5 Sodium 147 H Potassium 3.2 L Chloride 106 Carbon Dioxide 24 Anion Gap 17 H BUN 173 H Creatinine 11.00 H Estim Creat Clear Calc 5 Estimated GFR 6 L Glucose 166 H POC Capillary Glucose 202 H 174 H Calcium 7.3 L Total Bilirubin 0.4 AST 73 H ALT 43 Alkaline Phosphatase 51 Total Protein 7.0 Albumin 2.9 L 07/06/24 07/06/24 11:40 15:19 WBC RBC Hgb Hct MCV MCH MCHC RDW Plt Count MPV Immature Gran % (Auto) Neut % (Auto) Lymph % (Auto) [place] % (Auto) Eos % (Auto) Baso % (Auto) Lymph # (Auto) [place] # (Auto) Eos # (Auto) Baso # (Auto) Abs Immat Gran (auto) Absolute Neuts (auto) Absolute Nucleated RBC Nucleated RBC % % Immature Plt Fraction Sodium Potassium Chloride Carbon Dioxide Anion Gap BUN Creatinine Estim Creat Clear Calc Estimated GFR Glucose POC Capillary Glucose 162 H 172 H Calcium Total Bilirubin AST ALT Alkaline Phosphatase Total Protein Albumin
--- NOTE | 2024-07-06 16:24 | PM.PNNEP ---
Subjective Date/time seen: 07/06/24 12:46 Interval history: Follow-up for acute kidney injury on chronic kidney disease and hypernatremia. No real significant change noted -- nonverbal and noncommunicative but does not appear to be in any distress; sodium level remains relatively stable but not real significant improvement noted in renal function/creatinine despite ongoing supportive measures; Objective Data Vital Signs Vital Signs: Vital Signs Temp Pulse Resp BP Pulse Ox O2 Del Method 07/06/24 12:00 68 Room Air 07/06/24 11:19 97.8 60 30 H 155/81 H 95 07/06/24 10:00 66 07/06/24 07:48 99.1 F 68 28 H 116/80 100 07/06/24 06:00 69 07/06/24 04:00 71 07/06/24 04:00 Room Air 07/06/24 04:31 99.0 F 67 18 153/64 H 96 07/06/24 02:00 60 07/06/24 00:00 Room Air 07/06/24 00:00 57 L 07/05/24 22:00 60 07/05/24 20:00 56 L 07/06/24 00:39 99.6 F 58 L 18 144/67 H 100 07/05/24 20:00 Room Air 07/05/24 20:15 99.5 F 57 L 18 131/85 98 07/05/24 18:00 63 Intake/Output Intake/Output: Intake & Output 07/03/24 07/04/24 07/05/24 07/06/24 23:59 23:59 23:59 23:59 Intake Total 2426.7 3730.3 1681.7 1806.7 Output Total 1000 1800 1450 1300 Balance 1426.7 1930.3 231.7 506.7 Meds/Results Medications: Active Medications Generic Name Dose Route Start Last Admin Trade Name Freq PRN Reason Stop Dose Admin Atorvastatin Calcium 20 mg 07/02/24 09:00 07/06/24 09:23 Atorvastatin 20 Mg Tablet PO 20 mg DAILY URIAH Administration Clonidine HCl 1 patch 07/13/24 09:00 Clonidine 0.1 Mg/24 Hr Patch TRANSDERM WEEKLY URIAH Dextrose 12.5 gm 07/03/24 23:35 Dextrose 50% 25 Gm/50 Ml Syringe IV PUSH PRN PRN Hypoglycemia Protocol Ferrous Sulfate 325 mg 07/02/24 09:00 07/06/24 09:23 Ferrous Sulfate [address] PO 08/01/24 08:59 325 mg BID URIAH Administration Glucagon 1 mg 07/03/24 23:35 Glucagon For Inj 1 Mg Vial IM PRN PRN Hypoglycemia Protocol Glucose 15 gm 07/03/24 23:35 Glucose Oral Gel 15 Gm Of Glucse In 37.5 Gm Tube PO PRN PRN Hypoglycemia Protocol Hydralazine HCl 50 mg 07/02/24 09:00 07/06/24 12:50 Hydralazine Hcl 50 Mg Tablet PO 50 mg TID URIAH Administration Dextrose 1,000 mls @ 100 mls/hr 07/02/24 19:15 07/06/24 12:49 Dextrose 5% 1,000 Ml IV CONT 100 mls/hr .Q10H URIAH Administration Dextrose 1,000 mls @ 100 mls/hr 07/03/24 23:35 Dextrose 5% 1,000 Ml IVPB PRN PRN Hypoglycemia Protocol Ceftriaxone Sodium 1 gm in 50 mls @ 100 mls/hr 07/07/24 09:00 Rocephin 1 Gm/Ns 50 Ml IVPB 07/08/24 09:29 DAILY URIAH Insulin Aspart 2 - 5 units 07/04/24 00:00 07/06/24 12:05 Insulin Aspart (*Bkc) 100 Units/Ml SUB-Q Not Given Q6HR [facility] Protocol Insulin Glargine 6 units 07/04/24 21:00 07/05/24 21:05 Insulin Glargine (*Bkc) 100 Units/Ml SUB-Q 6 units HS URIAH Administration Radiology Results: ITS Impressions Head CT 07/02/24 06:32 IMPRESSION: 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 Renal Ultrasound 07/02/24 11:50 IMPRESSION: 1. Normal right kidney. 2. Left kidney and bladder not evaluated. Labs Labs: Laboratory Tests 07/06/24 09:12 07/06/24 09:12 Calcium 7.3 L Total Bilirubin 0.4 AST 73 H ALT 43 Alkaline Phosphatase 51 Total Protein 7.0 Albumin 2.9 L
[2024-07-06 18:25] LABS: Glucose Point of Care 168 mg/dl (65-105)
[2024-07-06 20:05] LABS: Glucose Point of Care 168 mg/dl (65-105)
[2024-07-06] MEDS: INSULIN GLARGINE (*BKC) 100 UNITS/ML 6 UNITS SUB-Q (20:41)
[2024-07-07] VITALS (17 sets, daily range): BP systolic 115–174; BP diastolic 67–83; PULSE 46–68; RESP 16–28; TEMP 36.8–37.3; O2SAT 95–100
[2024-07-07 00:37] LABS: Glucose Point of Care 176 mg/dl (65-105)
[2024-07-07] MEDS: DEXTROSE 5% 1,000 ML 1,000 ML 100 ML IV CONT (00:39)
[2024-07-07 05:03] LABS: Basophils Percent Auto 0.1 % (0.2-1.2); Eosinophils Absolute Auto 0.2 K/mm3 (0-0.3); Eosinophils Percent Auto 2.6 % (0-4.4); Hematocrit 24.5 % (42.0-52.0); Hemoglobin 7.8 g/dL (14.0-18.0); Immature Granulocyte Absolute 0.06 K/mm3 (0.00-0.031); Immature Granulocyte Percent A 0.7 % (0-0.5); Immature Platelet Fraction Pct 10.1 % (0.9-11.2); Lymphocytes Absolute Auto 1.44 K/mm3 (0.9-3.2); Lymphocytes Percent Auto 16.3 % (18.3-44.2); Mean Corpuscular HGB Conc 31.8 g/dl (32-36); Mean Corpuscular Hemoglobin 29.9 pg (26-34); Mean Corpuscular Volume 93.9 fl (80-100); Monocytes Absolute Auto 0.7 K/mm3 (0.1-0.6); Monocytes Percent Auto 7.9 % (2.6-8.5); Neutrophils Absolute Auto 6.4 K/mm3 (1.3-6.7); Neutrophils Percent Auto 72.4 % (45.5-73.1); Platelet Count Result 103 k/mm3 (150-375); Red Blood Count 2.61 M/mm3 (4.6-6.20); Red Cell Distribution Width 13.5 % (11.5-14.5); White Blood Count 8.9 K/mm3 (4.5-10.0)
[2024-07-07 05:16] LABS: Alanine Aminotransferase 32 U/L (6-50); Albumin Level 2.7 g/dL (3.5-5.1); Alkaline Phosphatase 49 U/L (38-126); Anion Gap 17 mmol/L (4-12); Aspartate Amino Transferase 51 U/L (17-59); Bilirubin,Total 0.4 mg/dL (0.2-1.3); Calcium 7.4 mg/dL (8.4-10.2); Carbon Dioxide 22 mmol/L (22-30); Chloride 101 mmol/L (98-107); Estimated CRCL calculation 5 ml/min; Estimated Glomerular Filt Rate 6; Glucose 180 mg/dL (65-110); Magnesium 1.4 mg/dL (1.6-2.3); Potassium 3.5 mmol/L (3.4-5.0); Sodium 140 mmol/L (137-145)
[2024-07-07 05:33] LABS: Blood Urea Nitrogen 166 mg/dL (9-20)
--- NOTE | 2024-07-07 10:11 | PM.PNNEP ---
Subjective Date/time seen: 07/07/24 10:11 Interval history: Follow-up for acute kidney injury/acute renal failure on chronic kidney disease and hypernatremia. Sodium is doing better with D5W IVF resuscitation and some noted mild improvement in renal function/creatinine as well; issues with vomiting yesterday but no further episodes since then with negative imaging noted (KUB); scheduled for MBS today as well. Objective Data Vital Signs Vital Signs: Vital Signs Temp Pulse Resp BP Pulse Ox O2 Del Method 07/07/24 10:00 99.2 F 61 28 H 150/70 H 100 07/07/24 08:00 58 L 07/07/24 08:29 98.2 F 59 L 18 174/74 H 100 07/07/24 06:00 56 L 07/07/24 04:00 47 L 07/07/24 04:00 Room Air 07/07/24 04:06 98.4 F 56 L 20 156/73 H 100 07/07/24 02:00 60 07/07/24 00:00 64 07/07/24 00:00 Room Air 07/07/24 00:44 98.6 F 65 20 165/75 H 95 07/06/24 22:00 64 07/06/24 20:00 69 07/06/24 20:00 Room Air 07/06/24 19:40 99.2 F 71 20 161/85 H 100 07/06/24 18:00 70 Intake/Output Intake/Output: Intake & Output 07/04/24 07/05/24 07/06/24 07/07/24 23:59 23:59 23:59 23:59 Intake Total 3730.3 1681.7 2706.7 998.3 Output Total 1800 1450 2075 1050 Balance 1930.3 231.7 631.7 -51.7 Meds/Results Medications: Active Medications Generic Name Dose Route Start Last Admin Trade Name Freq PRN Reason Stop Dose Admin Atorvastatin Calcium 20 mg 07/02/24 09:00 07/07/24 09:45 Atorvastatin 20 Mg Tablet PO Not Given DAILY URIAH Clonidine HCl 1 patch 07/13/24 09:00 Clonidine 0.1 Mg/24 Hr Patch TRANSDERM WEEKLY URIAH Dextrose 12.5 gm 07/03/24 23:35 Dextrose 50% 25 Gm/50 Ml Syringe IV PUSH PRN PRN Hypoglycemia Protocol Ferrous Sulfate 325 mg 07/02/24 09:00 07/07/24 16:53 Ferrous Sulfate [address] PO 08/01/24 08:59 Not Given BID URIAH Glucagon 1 mg 07/03/24 23:35 Glucagon For Inj 1 Mg Vial IM PRN PRN Hypoglycemia Protocol Glucose 15 gm 07/03/24 23:35 Glucose Oral Gel 15 Gm Of Glucse In 37.5 Gm Tube PO PRN PRN Hypoglycemia Protocol Hydralazine HCl 50 mg 07/02/24 09:00 07/07/24 16:54 Hydralazine Hcl 50 Mg Tablet PO Not Given TID URIAH Dextrose 1,000 mls @ 75 mls/hr 07/02/24 19:15 07/07/24 11:59 Dextrose 5% 1,000 Ml IV CONT 75 mls/hr .[id number] URIAH Administration Dextrose 1,000 mls @ 100 mls/hr 07/03/24 23:35 Dextrose 5% 1,000 Ml IVPB PRN PRN Hypoglycemia Protocol Ceftriaxone Sodium 1 gm in 50 mls @ 100 mls/hr 07/07/24 09:00 07/07/24 09:25 Rocephin 1 Gm/Ns 50 Ml IVPB 07/08/24 09:29 100 mls/hr DAILY URIAH Administration Insulin Aspart 2 - 5 units 07/04/24 00:00 07/07/24 16:54 Insulin Aspart (*Bkc) 100 Units/Ml SUB-Q Not Given Q6HR URIAH Protocol Insulin Glargine 6 units 07/04/24 21:00 07/06/24 20:41 Insulin Glargine (*Bkc) 100 Units/Ml SUB-Q 6 units HS URIAH Administration Radiology Results: ITS Impressions Head CT 07/02/24 06:32 IMPRESSION: 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 Renal Ultrasound 07/02/24 11:50 IMPRESSION: 1. Normal right kidney. 2. Left kidney and bladder not evaluated. Abdomen X-Ray 07/06/24 16:36 IMPRESSION: 1. Normal bowel gas pattern. Labs Labs: Laboratory Tests 07/07/24 04:55 07/07/24 04:55 Calcium 7.4 L Magnesium 1.4 L Total Bilirubin 0.4 AST 51 ALT 32 Alkaline Phosphatase 49 Total Protein 6.0 L Albumin 2.7 L
[2024-07-07] MEDS: DEXTROSE 5% 1,000 ML 1,000 ML 75 ML IV CONT (11:59)
--- NOTE | 2024-07-07 12:53 | PM.IMPN ---
Progress Note: A&P Assessment and Plan (1) A-fib: Code(s): I48.91 - Unspecified atrial fibrillation Status: Acute (2) LINDSEY (acute kidney injury): Code(s): N17.9 - Acute kidney failure, unspecified Status: Acute Plan # Hypernatremia: Patient brought in for abnormal labs. Na was 163. Chloride 122. Clinically he appeared dehydrated. He takes oral intake and suspect he is not taking enough to sustain himself. He was started on 1/2NS and sodium dropped to 160. Changed to D5W and Na improved to 148 RN noted some coughing with feeding but no hypoxia. He is eating better at 75-100% of meals. Nephrology following and managing sodium levels. Appreciate their input Sodium level is trending down and normalized now # poor p.o. intake: Suspecting dysphagia vs inadequate feeding Consult speech evaluation and modified barium swallowing test per based on speech evaluation however could not be done due to emesis If dysphagia is conformed, consider NGT placement or PEG Patient is able to drink water, and able to eat per nurse report # Renal failure (ARF), acute on chronic: Cr toward the end of his last hospitalization was 3.7-3.9 and stable for a few days. BUN was in the 60's. BUN 199 with Cr 12.8 on admission. Suspect related to dehydration but Urine eos rare and Reymundo 80. FENa 8% with FEUrea 52% more consistent with ATN. Prot/Cr ratio 4.2gm c/w nephrotic range proteinuria as well. Renal US showing nomral right kidney but left kidney and bladder unable to be visualized. 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 # Acute UTI: UA is consistent with UTI. UCx collected. Hx of ESBL EColi so Meropenem started. UCx growing proteus that is mostly pansensitive. Change to Rocephin. # A-fib: Tele reviewed showing possible complete heart block. On clonidine patch currently which can slow conduction. Old EKG in September showing sinus rhythm with CHB and junctional escape rhythm. Cardiology note from Sep reviewed: patient with asymptomatic AV dissociation. PM is indicated but they felt not clinically indicated given the patient's poor healthy. EKG showing sinus rhythm with high degree AV block, Rt BBB and marked T wave changes in the anterolateral and inferior leads. Continue clonidine patch for now but start slow weaning He was on Eliquis at the time of last discharge but not listed as home med now. # Hypertension: Patient's blood pressure was reviewed on 07/04 Blood pressure remains reasonably well controlled. Will continue current meds as clonidine patch and hydralazine. Wean clonidine # Insulin dependent diabetes mellitus: Continue AccuCheks covering with sliding scale. Hypoglycemia protocol available as needed. Continue to monitor. Add Lantus low dose at night. # Dementia: Nonverbal. Not on treatment for dementia. Follow # Anemia: Hgb dropped to 6.4 from 8.9. No evidence of acute blood loss. Suspect related to IV fluids and that he was hemoconcentrated. Iron studies consistent with anemia of chronic disease probably related to his renal failure Transfused and Hgb better at 7.8 Follow and transfuse as needed. # DVT prophylaxis - SCDs. # Full code by default. Unclear who the guardian is. Investigation ongoing. # nausea vomiting: X-ray KUB with normal bowel gas pattern. Will resume diet as tolerated. Also going for an MBS today. Subjective Date/time seen: 07/07/24 12:53 Interval history: No overnight events. No further vomiting. X-ray reviewed. Discussed with nursing staff. Review of Systems Review of Systems: ROS unobtainable: Yes unobtainable due to mental status Exam Narrative: GENERAL: in no acute distress. Well-nourished. - EYES: EOMI. Anicteric. - HENT: dry mucous membranes. - LUNGS: Clear to auscultation bilaterally, no wheezing, rhonchi, or rales. - CARDIOVASCULAR: Regular rate and rhythm. No murmur. No JVD. - ABDOMEN: Soft, non-tender and non-distended. No palpable masses. - EXTREMITIES: No edema. Peripheral pulses 2+. Non-tender. - NEUROLOGIC: No focal neurological deficits. CN II-XII grossly intact. Contracture of lower extremities, - PSYCHIATRIC: Alert, able to follow up some commands, not oriented x 3. Appropriate mood and affect. - SKIN: No rashes or lesions. Warm. - LYMPH: No cervical lymphadenopathy. Objective Data Vital Signs Vital Signs: Vital Signs - 24 hr 07/06/24 14:00 07/06/24 15:16 07/06/24 16:00 Temperature 99.7 F H Pulse Rate 72 70 70 Respiratory Rate 20 Blood Pressure 131/83 Pulse Oximetry 100 Oxygen Delivery 07/06/24 18:00 07/06/24 19:40 07/06/24 20:00 Temperature 99.2 F Pulse Rate 70 71 Respiratory Rate 20 Blood Pressure 161/85 H Pulse Oximetry 100 Oxygen Delivery Room Air 07/06/24 20:00 07/06/24 22:00 07/07/24 00:44 Temperature 98.6 F Pulse Rate 69 64 65 Respiratory Rate 20 Blood Pressure 165/75 H Pulse Oximetry 95 Oxygen Delivery 07/07/24 00:00 07/07/24 00:00 07/07/24 02:00 Temperature Pulse Rate 64 60 Respiratory Rate Blood Pressure Pulse Oximetry Oxygen Delivery Room Air 07/07/24 04:06 07/07/24 04:00 07/07/24 04:00 Temperature 98.4 F Pulse Rate 56 L 47 L Respiratory Rate 20 Blood Pressure 156/73 H Pulse Oximetry 100 Oxygen Delivery Room Air 07/07/24 06:00 07/07/24 08:29 07/07/24 08:00 Temperature 98.2 F Pulse Rate 56 L 59 L 58 L Respiratory Rate 18 Blood Pressure 174/74 H Pulse Oximetry 100 Oxygen Delivery 07/07/24 10:00 07/07/24 12:26 Temperature 99.2 F Pulse Rate 46 L 61 Respiratory Rate 28 H Blood Pressure 150/70 H Pulse Oximetry 100 Oxygen Delivery Intake/Output Intake/Output: Intake & Output 07/04/24 07/05/24 07/06/24 07/07/24 23:59 23:59 23:59 23:59 Intake Total 3730.3 1681.7 2706.7 998.3 Output Total 1800 1450 2075 500 Balance 1930.3 231.7 631.7 498.3 Meds/Results Medications: Active Medications Generic Name Dose Route Start Last Admin Trade Name Freq PRN Reason Stop Dose Admin Atorvastatin Calcium 20 mg 07/02/24 09:00 07/07/24 09:45 Atorvastatin 20 Mg Tablet PO Not Given DAILY URIAH Clonidine HCl 1 patch 07/13/24 09:00 Clonidine 0.1 Mg/24 Hr Patch TRANSDERM WEEKLY URIAH Dextrose 12.5 gm 07/03/24 23:35 Dextrose 50% 25 Gm/50 Ml Syringe IV PUSH PRN PRN Hypoglycemia Protocol Ferrous Sulfate 325 mg 07/02/24 09:00 07/07/24 09:46 Ferrous Sulfate [address] PO 08/01/24 08:59 Not Given BID URIAH Glucagon 1 mg 07/03/24 23:35 Glucagon For Inj 1 Mg Vial IM PRN PRN Hypoglycemia Protocol Glucose 15 gm 07/03/24 23:35 Glucose Oral Gel 15 Gm Of Glucse In 37.5 Gm Tube PO PRN PRN Hypoglycemia Protocol Hydralazine HCl 50 mg 07/02/24 09:00 07/07/24 12:50 Hydralazine Hcl 50 Mg Tablet PO Not Given TID URIAH Dextrose 1,000 mls @ 75 mls/hr 07/02/24 19:15 07/07/24 11:59 Dextrose 5% 1,000 Ml IV CONT 75 mls/hr .[id number] URIAH Administration Dextrose 1,000 mls @ 100 mls/hr 07/03/24 23:35 Dextrose 5% 1,000 Ml IVPB PRN PRN Hypoglycemia Protocol Ceftriaxone Sodium 1 gm in 50 mls @ 100 mls/hr 07/07/24 09:00 07/07/24 09:25 Rocephin 1 Gm/Ns 50 Ml IVPB 07/08/24 09:29 100 mls/hr DAILY URIAH Administration Insulin Aspart 2 - 5 units 07/04/24 00:00 07/07/24 12:49 Insulin Aspart (*Bkc) 100 Units/Ml SUB-Q Not Given Q6HR [facility] Protocol Insulin Glargine 6 units 07/04/24 21:00 07/06/24 20:41 Insulin Glargine (*Bkc) 100 Units/Ml SUB-Q 6 units HS URIAH Administration Radiology Results: ITS Impressions Head CT 07/02/24 06:32 IMPRESSION: 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 Renal Ultrasound 07/02/24 11:50 IMPRESSION: 1. Normal right kidney. 2. Left kidney and bladder not evaluated. Abdomen X-Ray 07/06/24 16:36 IMPRESSION: 1. Normal bowel gas pattern. Labs Labs: Laboratory Results - last 24 hr 07/06/24 07/06/24 07/06/24 15:19 18:23 19:43 WBC RBC Hgb Hct MCV MCH MCHC RDW Plt Count MPV Immature Gran % (Auto) Neut % (Auto) Lymph % (Auto) [place] % (Auto) Eos % (Auto) Baso % (Auto) Lymph # (Auto) [place] # (Auto) Eos # (Auto) Baso # (Auto) Abs Immat Gran (auto) Absolute Neuts (auto) Absolute Nucleated RBC Nucleated RBC % % Immature Plt Fraction Sodium Potassium Chloride Carbon Dioxide Anion Gap BUN Creatinine Estim Creat Clear Calc Estimated GFR Glucose POC Capillary Glucose 172 H 168 H 168 H Calcium Magnesium Total Bilirubin AST ALT Alkaline Phosphatase Total Protein Albumin 07/07/24 07/07/24 00:31 04:55 WBC 8.9 RBC 2.61 L Hgb 7.8 L Hct 24.5 L MCV 93.9 MCH 29.9 MCHC 31.8 L RDW 13.5 Plt Count 103 L MPV 14.0 H Immature Gran % (Auto) 0.7 H Neut % (Auto) 72.4 Lymph % (Auto) 16.3 L [place] % (Auto) 7.9 Eos % (Auto) 2.6 Baso % (Auto) 0.1 L Lymph # (Auto) 1.44 [place] # (Auto) 0.7 H Eos # (Auto) 0.2 Baso # (Auto) 0.0 Abs Immat Gran (auto) 0.06 H Absolute Neuts (auto) 6.4 Absolute Nucleated RBC 0.000 Nucleated RBC % 0.0 % Immature Plt Fraction 10.1 Sodium 140 Potassium 3.5 Chloride 101 Carbon Dioxide 22 Anion Gap 17 H BUN 166 H Creatinine 10.50 H Estim Creat Clear Calc 5 Estimated GFR 6 L Glucose 180 H POC Capillary Glucose 176 H Calcium 7.4 L Magnesium 1.4 L Total Bilirubin 0.4 AST 51 ALT 32 Alkaline Phosphatase 49 Total Protein 6.0 L Albumin 2.7 L
[2024-07-07 13:51] LABS: Glucose Point of Care 166 mg/dl (65-105)
--- NOTE | 2024-07-07 15:14 | PCSTNOTE ---
Please refer to the Modified Barium Swallow Evaluation in the EMR.
[2024-07-07] MEDS: INSULIN GLARGINE (*BKC) 100 UNITS/ML 6 UNITS SUB-Q (20:18)
[2024-07-07 20:36] LABS: Glucose Point of Care 126 mg/dl (65-105)
[2024-07-08] VITALS (8 sets, daily range): BP systolic 154–163; BP diastolic 59–64; PULSE 49–113; RESP 20–24; TEMP 36.3–37.5; O2SAT 100
[2024-07-08 00:01] LABS: Glucose Point of Care 119 mg/dl (65-105)
[2024-07-08 04:55] LABS: Basophils Percent Auto 0.1 % (0.2-1.2); Eosinophils Absolute Auto 0.2 K/mm3 (0-0.3); Eosinophils Percent Auto 2.5 % (0-4.4); Hematocrit 23.2 % (42.0-52.0); Hemoglobin 7.3 g/dL (14.0-18.0); Immature Granulocyte Absolute 0.04 K/mm3 (0.00-0.031); Immature Granulocyte Percent A 0.5 % (0-0.5); Immature Platelet Fraction Pct 11.1 % (0.9-11.2); Lymphocytes Absolute Auto 1.41 K/mm3 (0.9-3.2); Lymphocytes Percent Auto 16.5 % (18.3-44.2); Mean Corpuscular HGB Conc 31.5 g/dl (32-36); Mean Corpuscular Hemoglobin 29.3 pg (26-34); Mean Corpuscular Volume 93.2 fl (80-100); Mean Platelet Volume 14.3 fl (7.4-10.4); Monocytes Absolute Auto 0.8 K/mm3 (0.1-0.6); Monocytes Percent Auto 8.8 % (2.6-8.5); Neutrophils Absolute Auto 6.2 K/mm3 (1.3-6.7); Neutrophils Percent Auto 71.6 % (45.5-73.1); Platelet Count Result 110 k/mm3 (150-375); Red Blood Count 2.49 M/mm3 (4.6-6.20); Red Cell Distribution Width 13.2 % (11.5-14.5); White Blood Count 8.6 K/mm3 (4.5-10.0)
[2024-07-08 05:23] LABS: Alanine Aminotransferase 26 U/L (6-50); Albumin Level 2.6 g/dL (3.5-5.1); Alkaline Phosphatase 46 U/L (38-126); Anion Gap 16 mmol/L (4-12); Aspartate Amino Transferase 39 U/L (17-59); Bilirubin,Total 0.3 mg/dL (0.2-1.3); Calcium 7.2 mg/dL (8.4-10.2); Carbon Dioxide 23 mmol/L (22-30); Chloride 100 mmol/L (98-107); Estimated CRCL calculation 5 ml/min; Estimated Glomerular Filt Rate 6; Glucose 114 mg/dL (65-110); Magnesium 1.5 mg/dL (1.6-2.3); Potassium 3.1 mmol/L (3.4-5.0); Sodium 139 mmol/L (137-145)
[2024-07-08 05:41] LABS: Blood Urea Nitrogen 161 mg/dL (9-20)
[2024-07-08 05:49] LABS: Glucose Point of Care 117 mg/dl (65-105)
[2024-07-08] MEDS: DEXTROSE 5% 1,000 ML 1,000 ML 75 ML IV CONT (05:56)
[2024-07-08] MEDS: KCL 20 MEQ/SW 100 ML 100 ML 50 MEQ IVPB (08:52)
--- NOTE | 2024-07-08 11:25 | PM.PNNEP ---
Subjective Date/time seen: 07/08/24 11:25 Objective Data Vital Signs Vital Signs: Vital Signs Temp Pulse Resp BP Pulse Ox O2 Del Method 07/08/24 11:10 97.4 F L 113 H 24 H 154/64 H 100 07/08/24 08:00 69 07/08/24 08:00 Room Air 07/08/24 08:15 99.4 F 56 L 20 163/62 H 100 07/08/24 04:00 54 L 07/08/24 00:00 54 L 07/08/24 00:00 99.5 F 58 L 20 160/59 H 100 07/07/24 20:00 61 07/07/24 20:00 Room Air 07/07/24 20:08 98.9 F 68 16 115/83 95 07/07/24 18:00 52 L Intake/Output Intake/Output: Intake & Output 07/05/24 07/06/24 07/07/24 07/08/24 23:59 23:59 23:59 23:59 Intake Total 1681.7 2706.7 1048.3 1250 Output Total 1450 2075 1050 850 Balance 231.7 631.7 -1.7 400 Meds/Results Medications: Active Medications Generic Name Dose Route Start Last Admin Trade Name Freq PRN Reason Stop Dose Admin Atorvastatin Calcium 20 mg 07/02/24 09:00 07/08/24 08:03 Atorvastatin 20 Mg Tablet PO Not Given DAILY URIAH Clonidine HCl 1 patch 07/13/24 09:00 Clonidine 0.1 Mg/24 Hr Patch TRANSDERM WEEKLY URIAH Dextrose 12.5 gm 07/03/24 23:35 Dextrose 50% 25 Gm/50 Ml Syringe IV PUSH PRN PRN Hypoglycemia Protocol Ferrous Sulfate 325 mg 07/02/24 09:00 07/08/24 08:03 Ferrous Sulfate [address] PO 08/01/24 08:59 Not Given BID URIAH Glucagon 1 mg 07/03/24 23:35 Glucagon For Inj 1 Mg Vial IM PRN PRN Hypoglycemia Protocol Glucose 15 gm 07/03/24 23:35 Glucose Oral Gel 15 Gm Of Glucse In 37.5 Gm Tube PO PRN PRN Hypoglycemia Protocol Hydralazine HCl 50 mg 07/02/24 09:00 07/08/24 14:37 Hydralazine Hcl 50 Mg Tablet PO Not Given TID URIAH Dextrose 1,000 mls @ 50 mls/hr 07/02/24 19:15 07/08/24 05:56 Dextrose 5% 1,000 Ml IV CONT 75 mls/hr .Q20H URIAH Administration Dextrose 1,000 mls @ 100 mls/hr 07/03/24 23:35 Dextrose 5% 1,000 Ml IVPB PRN PRN Hypoglycemia Protocol Insulin Aspart 2 - 5 units 07/04/24 00:00 07/08/24 12:36 Insulin Aspart (*Bkc) 100 Units/Ml SUB-Q Not Given Q6HR URIAH Protocol Insulin Glargine 6 units 07/04/24 21:00 07/07/24 20:18 Insulin Glargine (*Bkc) 100 Units/Ml SUB-Q 6 units HS URIAH Administration Radiology Results: ITS Impressions Head CT 07/02/24 06:32 IMPRESSION: 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 Renal Ultrasound 07/02/24 11:50 IMPRESSION: 1. Normal right kidney. 2. Left kidney and bladder not evaluated. Abdomen X-Ray 07/06/24 16:36 IMPRESSION: 1. Normal bowel gas pattern. Modified Barium Swallow 07/07/24 15:06 IMPRESSION: Pharyngeal dysphagia with laryngeal penetration and aspiration with multiple consistencies. Please correlate with speech pathologist findings and specific feeding recommendations. Labs Labs: Laboratory Tests 07/08/24 04:27 07/08/24 04:27 Calcium 7.2 L Magnesium 1.5 L Total Bilirubin 0.3 AST 39 ALT 26 Alkaline Phosphatase 46 Total Protein 6.0 L Albumin 2.6 L
[2024-07-08] MEDS: MAGNESIUM SULF 1 GM/D5W 100 ML 1 GM/100 ML BAG IVPB (11:29)
[2024-07-08 12:25] LABS: Glucose Point of Care 127 mg/dl (65-105)
--- NOTE | 2024-07-08 12:27 | PC.NURSE ---
This RN gave report to Lillian PONCE.
--- NOTE | 2024-07-08 13:11 | P.PNIM_ITS ---
Progress Note: A&P Assessment and Plan (1) A-fib: Code(s): I48.91 - Unspecified atrial fibrillation Status: Acute (2) LINDSEY (acute kidney injury): Code(s): N17.9 - Acute kidney failure, unspecified Status: Acute Plan # Hypernatremia: Patient brought in for abnormal labs. Na was 163. Chloride 122. Clinically he appeared dehydrated. He takes oral intake and suspect he is not taking enough to sustain himself. He was started on 1/2NS and sodium dropped to 160. Changed to D5W and Na improved to 148 RN noted some coughing with feeding but no hypoxia. He is eating better at 75- 100% of meals. Nephrology following and managing sodium levels. Appreciate their input Sodium level is trending down and normalized now # poor p.o. intake: Suspecting dysphagia vs inadequate feeding Consult speech evaluation and modified barium swallowing test per based on speech evaluation however could not be done due to emesis MBS failed. Will place NG tube and start tube feed. Once guardianship is determined he likely will need PEG tube placement # Renal failure (ARF), acute on chronic: Cr toward the end of his last hospitalization was 3.7-3.9 and stable for a few days. BUN was in the 60's. BUN 199 with Cr 12.8 on admission. Suspect related to dehydration but Urine eos rare and Reymundo 80. FENa 8% with FEUrea 52% more consistent with ATN. Prot/Cr ratio 4.2gm c/w nephrotic range proteinuria as well. Renal US showing nomral right kidney but left kidney and bladder unable to be visualized. 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 # Acute UTI: UA is consistent with UTI. UCx collected. Hx of ESBL EColi so Meropenem started. UCx growing proteus that is mostly pansensitive. Change to Rocephin. # A-fib: Tele reviewed showing possible complete heart block. On clonidine patch currently which can slow conduction. Old EKG in September showing sinus rhythm with CHB and junctional escape rhythm. Cardiology note from Sep reviewed: patient with asymptomatic AV dissociation. PM is indicated but they felt not clinically indicated given the patient's poor healthy. EKG showing sinus rhythm with high degree AV block, Rt BBB and marked T wave changes in the anterolateral and inferior leads. Continue clonidine patch for now but start slow weaning He was on Eliquis at the time of last discharge but not listed as home med now. # Hypertension: Patient's blood pressure was reviewed on 07/04 Blood pressure remains reasonably well controlled. Will continue current meds as clonidine patch and hydralazine. Wean clonidine because of heart block However he is NPO currently and will continue clonidine for now and will do slow taper # Insulin dependent diabetes mellitus: Continue AccuCheks covering with sliding scale. Hypoglycemia protocol available as needed. Continue to monitor. Add Lantus low dose at night. # Dementia: Nonverbal. Not on treatment for dementia. Follow # Anemia: Hgb dropped to 6.4 from 8.9. No evidence of acute blood loss. Suspect related to IV fluids and that he was hemoconcentrated. Iron studies consistent with anemia of chronic disease probably related to his renal failure Transfused and Hgb better at 7.8 Follow and transfuse as needed. # DVT prophylaxis - SCDs. # Full code by default. Unclear who the guardian is. Investigation ongoing. # nausea vomiting: X-ray KUB with normal bowel gas pattern. Subjective Date/time seen: 07/08/24 13:11 Interval history: No overnight events. Failed swallow evaluation. Labs reviewed. Review of Systems Review of Systems: ROS unobtainable: Yes unobtainable due to mental status Exam Narrative: GENERAL: in no acute distress. Well-nourished. - EYES: EOMI. Anicteric. - HENT: dry mucous membranes. - LUNGS: Clear to auscultation bilateral ly, no wheezing, rhonchi, or rales. - CARDIOVASCULAR: Regular rate and rhyth m. No murmur. No JVD. - ABDOMEN: Soft, non-tender and non-dist ended. No palpable masses. - EXTREMITIES: No edema. Peripheral puls es 2+. Non-tender. - NEUROLOGIC: No focal neurological defi cits. CN II-XII grossly intact. Contracture of lower extremities, - PSYCHIATRIC: Alert, able to follow up some commands, not oriented x 3. Ap propriate mood and affect. - SKIN: No rashes or lesions. Warm. - LYMPH: No cervical lymphadenopathy. Objective Data Vital Signs Vital Signs: Vital Signs - 24 hr 07/07/24 15:37 07/07/24 16:00 07/07/24 14:00 Temperature 98.4 F Pulse Rate 58 L 56 L 55 L Respiratory Rate 20 Blood Pressure 164/67 H Pulse Oximetry 95 Oxygen Delivery 07/07/24 18:00 07/07/24 20:08 07/07/24 20:00 Temperature 98.9 F Pulse Rate 52 L 68 Respiratory Rate 16 Blood Pressure 115/83 Pulse Oximetry 95 Oxygen Delivery Room Air 07/07/24 20:00 07/08/24 00:00 07/08/24 00:00 Temperature 99.5 F Pulse Rate 61 58 L 54 L Respiratory Rate 20 Blood Pressure 160/59 H Pulse Oximetry 100 Oxygen Delivery 07/08/24 04:00 07/08/24 08:15 07/08/24 08:00 Temperature 99.4 F Pulse Rate 54 L 56 L Respiratory Rate 20 Blood Pressure 163/62 H Pulse Oximetry 100 Oxygen Delivery Room Air 07/08/24 08:00 07/08/24 12:00 Temperature Pulse Rate 69 49 L Respiratory Rate Blood Pressure Pulse Oximetry Oxygen Delivery Intake/Output Intake/Output: Intake & Output 07/05/24 07/06/24 07/07/24 07/08/24 23:59 23:59 23:59 23:59 Intake Total 1681.7 2706.7 1048.3 1000 Output Total 1450 2075 1050 850 Balance 231.7 631.7 -1.7 150 Meds/Results Medications: Active Medications Generic Name Dose Route Start Last Admin Trade Name Freq PRN Reason Stop Dose Admin Atorvastatin Calcium 20 mg 07/02/24 09:00 07/08/24 08:03 Atorvastatin 20 Mg Tablet PO Not Given DAILY URIAH Clonidine HCl 1 patch 07/13/24 09:00 Clonidine 0.1 Mg/24 Hr Patch TRANSDERM WEEKLY URIAH Dextrose 12.5 gm 07/03/24 23:35 Dextrose 50% 25 Gm/50 Ml Syringe IV PUSH PRN PRN Hypoglycemia Protocol Ferrous Sulfate 325 mg 07/02/24 09:00 07/08/24 08:03 Ferrous Sulfate [address] PO 08/01/24 08:59 Not Given BID URIAH Glucagon 1 mg 07/03/24 23:35 Glucagon For Inj 1 Mg Vial IM PRN PRN Hypoglycemia Protocol Glucose 15 gm 07/03/24 23:35 Glucose Oral Gel 15 Gm Of Glucse In 37.5 Gm Tube PO PRN PRN Hypoglycemia Protocol Hydralazine HCl 50 mg 07/02/24 09:00 07/08/24 08:03 Hydralazine Hcl 50 Mg Tablet PO Not Given TID URIAH Dextrose 1,000 mls @ 50 mls/hr 07/02/24 19:15 07/08/24 05:56 Dextrose 5% 1,000 Ml IV CONT 75 mls/hr .Q20H URIAH Administration Dextrose 1,000 mls @ 100 mls/hr 07/03/24 23:35 Dextrose 5% 1,000 Ml IVPB PRN PRN Hypoglycemia Protocol Insulin Aspart 2 - 5 units 07/04/24 00:00 07/08/24 12:36 Insulin Aspart (*Bkc) 100 Units/Ml SUB-Q Not Given Q6HR [facility] Protocol Insulin Glargine 6 units 07/04/24 21:00 07/07/24 20:18 Insulin Glargine (*Bkc) 100 Units/Ml SUB-Q 6 units HS URIAH Administration Radiology Results: ITS Impressions Head CT 07/02/24 06:32 IMPRESSION: 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 Renal Ultrasound 07/02/24 11:50 IMPRESSION: 1. Normal right kidney. 2. Left kidney and bladder not evaluated. Abdomen X-Ray 07/06/24 16:36 IMPRESSION: 1. Normal bowel gas pattern. Modified Barium Swallow 07/07/24 15:06 IMPRESSION: Pharyngeal dysphagia with laryngeal penetration and aspiration with multiple consistencies. Please correlate with speech pathologist findings and specific feeding recommendations. Labs Labs: Laboratory Results - last 24 hr 07/07/24 07/07/24 07/07/24 12:26 20:22 23:45 WBC RBC Hgb Hct MCV MCH MCHC RDW Plt Count MPV Immature Gran % (Auto) Neut % (Auto) Lymph % (Auto) [place] % (Auto) Eos % (Auto) Baso % (Auto) Lymph # (Auto) [place] # (Auto) Eos # (Auto) Baso # (Auto) Abs Immat Gran (auto) Absolute Neuts (auto) Absolute Nucleated RBC Nucleated RBC % % Immature Plt Fraction Sodium Potassium Chloride Carbon Dioxide Anion Gap BUN Creatinine Estim Creat Clear Calc Estimated GFR Glucose POC Capillary Glucose 166 H 126 H 119 H Calcium Magnesium Total Bilirubin AST ALT Alkaline Phosphatase Total Protein Albumin 07/08/24 07/08/24 07/08/24 04:27 05:45 12:22 WBC 8.6 RBC 2.49 L Hgb 7.3 L Hct 23.2 L MCV 93.2 MCH 29.3 MCHC 31.5 L RDW 13.2 Plt Count 110 L MPV 14.3 H Immature Gran % (Auto) 0.5 Neut % (Auto) 71.6 Lymph % (Auto) 16.5 L [place] % (Auto) 8.8 H Eos % (Auto) 2.5 Baso % (Auto) 0.1 L Lymph # (Auto) 1.41 [place] # (Auto) 0.8 H Eos # (Auto) 0.2 Baso # (Auto) 0.0 Abs Immat Gran (auto) 0.04 H Absolute Neuts (auto) 6.2 Absolute Nucleated RBC 0.000 Nucleated RBC % 0.0 % Immature Plt Fraction 11.1 Sodium 139 Potassium 3.1 L Chloride 100 Carbon Dioxide 23 Anion Gap 16 H BUN 161 H Creatinine 10.40 H Estim Creat Clear Calc 5 Estimated GFR 6 L Glucose 114 H POC Capillary Glucose 117 H 127 H Calcium 7.2 L Magnesium 1.5 L Total Bilirubin 0.3 AST 39 ALT 26 Alkaline Phosphatase 46 Total Protein 6.0 L Albumin 2.6 L
--- NOTE | 2024-07-08 13:13 | PC.NURSE ---
Pt transferred to 2 medical room 248.
--- NOTE | 2024-07-08 15:01 | PC.NURSE ---
Explained NG tube insertion and that it was needed for tube feeding for it to patient. Attempted to insert NG tube. Pt shook his head, no. Attempted to insert NG at least five times. Each time, patient turned his head away from me & I was unable to insert the tube into his nose. Dr Brooke notified that patient was not cooperative with NG insertion.
--- NOTE | 2024-07-08 15:22 | PC.NURSE ---
This patient, Cristofer Bryant, was received from IMU on 07/08/24 at 1315. Report received from ROSARIO Bekcett. Patient/family oriented to unit policies and routines
[2024-07-08 18:07] LABS: Glucose Point of Care 117 mg/dl (65-105)
[2024-07-08] MEDS: INSULIN GLARGINE (*BKC) 100 UNITS/ML 6 UNITS SUB-Q (20:52)
[2024-07-08] MEDS: DEXTROSE 5% 1,000 ML 1,000 ML 50 ML IV CONT (22:54)
[2024-07-09] VITALS (11 sets, daily range): BP systolic 139–196; BP diastolic 41–77; PULSE 55–107; RESP 16–20; TEMP 36.1–36.6; O2SAT 85–100
[2024-07-09 00:38] LABS: Glucose Point of Care 117 mg/dl (65-105)
--- NOTE | 2024-07-09 01:01 | PC.NURSE ---
Daylight Savings Time For Daylight Savings Time Ending in the Fall - Clocks are moved back. For Daylight Savings Time Beginning in the Spring - Clocks are moved ahead. For [facility], the time of change occurs at 0200 hrs. Time is taken from the sql server bi developer. This entry on the patient's chart recognizes the change in time reflected during documentation. Example: 2 entries for vital signs may be charted for 0200 hrs.
[2024-07-09 05:44] LABS: Glucose Point of Care 101 mg/dl (65-105)
[2024-07-09 05:54] LABS: Basophils Percent Auto 0.1 % (0.2-1.2); Eosinophils Absolute Auto 0.1 K/mm3 (0-0.3); Eosinophils Percent Auto 1.9 % (0-4.4); Hematocrit 23.9 % (42.0-52.0); Hemoglobin 7.6 g/dL (14.0-18.0); Immature Granulocyte Absolute 0.04 K/mm3 (0.00-0.031); Immature Granulocyte Percent A 0.6 % (0-0.5); Lymphocytes Absolute Auto 1.22 K/mm3 (0.9-3.2); Lymphocytes Percent Auto 16.9 % (18.3-44.2); Mean Corpuscular HGB Conc 31.8 g/dl (32-36); Mean Corpuscular Hemoglobin 29.5 pg (26-34); Mean Corpuscular Volume 92.6 fl (80-100); Mean Platelet Volume 14.2 fl (7.4-10.4); Monocytes Absolute Auto 0.7 K/mm3 (0.1-0.6); Neutrophils Absolute Auto 5.2 K/mm3 (1.3-6.7); Neutrophils Percent Auto 71.5 % (45.5-73.1); Platelet Count Result 124 k/mm3 (150-375); Red Blood Count 2.58 M/mm3 (4.6-6.20); Red Cell Distribution Width 13.1 % (11.5-14.5); White Blood Count 7.2 K/mm3 (4.5-10.0)
[2024-07-09 06:14] LABS: Alanine Aminotransferase 56 U/L (6-50); Albumin Level 2.9 g/dL (3.5-5.1); Alkaline Phosphatase 59 U/L (38-126); Anion Gap 17 mmol/L (4-12); Aspartate Amino Transferase 81 U/L (17-59); Bilirubin,Total 0.3 mg/dL (0.2-1.3); Calcium 7.2 mg/dL (8.4-10.2); Carbon Dioxide 21 mmol/L (22-30); Chloride 101 mmol/L (98-107); Estimated CRCL calculation 6 ml/min; Estimated Glomerular Filt Rate 6; Glucose 97 mg/dL (65-110); Magnesium 1.8 mg/dL (1.6-2.3); Potassium 3.3 mmol/L (3.4-5.0); Sodium 139 mmol/L (137-145)
[2024-07-09 06:38] LABS: Blood Urea Nitrogen 158 mg/dL (9-20)
[2024-07-09] MEDS: KCL 20 MEQ/SW 100 ML 100 ML 50 MEQ IVPB (08:36)
--- NOTE | 2024-07-09 11:48 | P.PNIM_ITS ---
Progress Note: A&P Assessment and Plan (1) A-fib: Code(s): I48.91 - Unspecified atrial fibrillation Status: Acute (2) LINDSEY (acute kidney injury): Code(s): N17.9 - Acute kidney failure, unspecified Status: Acute Plan # Hypernatremia: Patient brought in for abnormal labs. Na was 163. Chloride 122. Clinically he appeared dehydrated. He takes oral intake and suspect he is not taking enough to sustain himself. He was started on 1/2NS and sodium dropped to 160. Changed to D5W and Na improved to 148 RN noted some coughing with feeding but no hypoxia. He is eating better at 75- 100% of meals. Nephrology following and managing sodium levels. Appreciate their input Sodium level is trending down and normalized now # poor p.o. intake: Suspecting dysphagia vs inadequate feeding Consult speech evaluation and modified barium swallowing test per based on speech evaluation however could not be done due to emesis MBS failed. Will place NG tube and start tube feed. Once guardianship is determined he likely will need PEG tube placement Patient did not allow NG placement # Renal failure (ARF), acute on chronic: Cr toward the end of his last hospitalization was 3.7-3.9 and stable for a few days. BUN was in the 60's. BUN 199 with Cr 12.8 on admission. Suspect related to dehydration but Urine eos rare and Reymundo 80. FENa 8% with FEUrea 52% more consistent with ATN. Prot/Cr ratio 4.2gm c/w nephrotic range proteinuria as well. Renal US showing nomral right kidney but left kidney and bladder unable to be visualized. 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 # Acute UTI: UA is consistent with UTI. UCx collected. Hx of ESBL EColi so Meropenem started. UCx growing proteus that is mostly pansensitive. Change to Rocephin. # A-fib: Tele reviewed showing possible complete heart block. On clonidine patch currently which can slow conduction. Old EKG in September showing sinus rhythm with CHB and junctional escape rhythm. Cardiology note from [facility] reviewed: patient with asymptomatic AV dissociation. PM is indicated but they felt not clinically indicated given the patient's poor healthy. EKG showing sinus rhythm with high degree AV block, Rt BBB and marked T wave changes in the anterolateral and inferior leads. Continue clonidine patch for now but start slow weaning He was on Eliquis at the time of last discharge but not listed as home med now. # Hypertension: Patient's blood pressure was reviewed on 07/04 Blood pressure remains reasonably well controlled. Will continue current meds as clonidine patch and hydralazine. Wean clonidine because of heart block However he is NPO currently and will continue clonidine for now and will do slow taper # Insulin dependent diabetes mellitus: Continue AccuCheks covering with sliding scale. Hypoglycemia protocol available as needed. Continue to monitor. Add Lantus low dose at night. # Dementia: Nonverbal. Not on treatment for dementia. Follow # Anemia: Hgb dropped to 6.4 from 8.9. No evidence of acute blood loss. Suspect related to IV fluids and that he was hemoconcentrated. Iron studies consistent with anemia of chronic disease probably related to his renal failure Transfused and Hgb better at 7.8 Follow and transfuse as needed. # DVT prophylaxis - SCDs. # Full code by default. Unclear who the guardian is. Investigation ongoing. # nausea vomiting: X-ray KUB with normal bowel gas pattern. Subjective Date/time seen: 07/09/24 11:48 Interval history: No overnight events. Failed swallow evaluation. refused NG tube placement. No on to decide on his further care. Patient non decisional Review of Systems Review of Systems: ROS unobtainable: Yes unobtainable due to mental status Exam Narrative: GENERAL: in no acute distress. Well-nourished. - EYES: EOMI. Anicteric. - HENT: dry mucous membranes. - LUNGS: Clear to auscultation bilateral ly, no wheezing, rhonchi, or rales. - CARDIOVASCULAR: Regular rate and rhyth m. No murmur. No JVD. - ABDOMEN: Soft, non-tender and non-dist ended. No palpable masses. - EXTREMITIES: No edema. Peripheral puls es 2+. Non-tender. - NEUROLOGIC: No focal neurological defi cits. CN II-XII grossly intact. Contracture of lower extremities, - PSYCHIATRIC: Alert, able to follow up some commands, not oriented x 3. Appropriate mood and affect. - SKIN: No rashes or lesions. Warm. - LYMPH: No cervical lymphadenopathy. Objective Data Vital Signs Vital Signs: Vital Signs - 24 hr 07/08/24 13:10 07/08/24 16:00 07/08/24 20:00 Temperature 97.4 F L Pulse Rate 113 H 62 64 Respiratory Rate 24 H Blood Pressure 154/64 H Pulse Oximetry 100 Oxygen Delivery Fraction of Inspired Oxygen 07/08/24 20:00 07/09/24 00:00 07/09/24 00:00 Temperature 96.9 F L Pulse Rate 62 55 L 57 L Respiratory Rate 24 H 20 Blood Pressure 153/41 H Pulse Oximetry 100 100 Oxygen Delivery Room Air Fraction of Inspired Oxygen 21 07/09/24 04:00 07/09/24 06:00 07/09/24 08:04 Temperature 98 F Pulse Rate 64 55 L 68 Respiratory Rate 20 Blood Pressure 139/77 Pulse Oximetry 100 Oxygen Delivery Fraction of Inspired Oxygen 07/09/24 08:36 Temperature Pulse Rate Respiratory Rate 20 Blood Pressure Pulse Oximetry 100 Oxygen Delivery Room Air Fraction of Inspired Oxygen Intake/Output Intake/Output: Intake & Output 07/06/24 07/07/24 07/08/24 07/09/24 23:59 23:59 23:59 22:59 Intake Total 2706.7 1048.3 2250 0 Output Total 2075 1050 1150 700 Balance 631.7 -1.7 1100 -700 Meds/Results Medications: Active Medications Generic Name Dose Route Start Last Admin Trade Name Freq PRN Reason Stop Dose Admin Atorvastatin Calcium 20 mg 07/02/24 09:00 07/09/24 08:42 Atorvastatin 20 Mg Tablet PO Not Given DAILY [facility] Clonidine HCl 1 patch 07/13/24 09:00 Clonidine 0.1 Mg/24 Hr Patch TRANSDERM WEEKLY [facility] Dextrose 12.5 gm 07/03/24 23:35 Dextrose 50% 25 Gm/50 Ml Syringe IV PUSH PRN PRN Hypoglycemia Protocol Ferrous Sulfate 325 mg 07/02/24 09:00 07/09/24 08:42 Ferrous Sulfate [address] PO 08/01/24 08:59 Not Given BID [facility]AH Glucagon 1 mg 07/03/24 23:35 Glucagon For Inj 1 Mg Vial IM PRN PRN Hypoglycemia Protocol Glucose 15 gm 07/03/24 23:35 Glucose Oral Gel 15 Gm Of Glucse In 37.5 Gm Tube PO PRN PRN Hypoglycemia Protocol Hydralazine HCl 50 mg 07/02/24 09:00 07/09/24 08:43 Hydralazine Hcl 50 Mg Tablet PO Not Given TID [facility]AH Dextrose 1,000 mls @ 50 mls/hr 07/02/24 19:15 07/08/24 22:54 Dextrose 5% 1,000 Ml IV CONT 50 mls/hr .Q20H [facility]AH Administration Dextrose 1,000 mls @ 100 mls/hr 07/03/24 23:35 Dextrose 5% 1,000 Ml IVPB PRN PRN Hypoglycemia Protocol Insulin Aspart 2 - 5 units 07/04/24 00:00 07/09/24 05:31 Insulin Aspart (*Bkc) 100 Units/Ml SUB-Q Not Given Q6HR [facility] Protocol Insulin Glargine 6 units 07/04/24 21:00 07/08/24 20:52 Insulin Glargine (*Bkc) 100 Units/Ml SUB-Q 6 units HS [facility] Administration Radiology Results: ITS Impressions Head CT 07/02/24 06:32 IMPRESSION: 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 Renal Ultrasound 07/02/24 11:50 IMPRESSION: 1. Normal right kidney. 2. Left kidney and bladder not evaluated. Abdomen X-Ray 07/06/24 16:36 IMPRESSION: 1. Normal bowel gas pattern. Modified Barium Swallow 07/07/24 15:06 IMPRESSION: Pharyngeal dysphagia with laryngeal penetration and aspiration with multiple consistencies. Please correlate with speech pathologist findings and specific feeding recommendations. Labs Labs: Laboratory Results - last 24 hr 07/08/24 07/09/24 07/09/24 18:05 00:33 05:13 WBC RBC Hgb Hct MCV MCH MCHC RDW Plt Count MPV Immature Gran % (Auto) Neut % (Auto) Lymph % (Auto) Murray % (Auto) Eos % (Auto) Baso % (Auto) Lymph # (Auto) Murray # (Auto) Eos # (Auto) Baso # (Auto) Abs Immat Gran (auto) Absolute Neuts (auto) Absolute Nucleated RBC Nucleated RBC % % Immature Plt Fraction Sodium Potassium Chloride Carbon Dioxide Anion Gap BUN Creatinine Estim Creat Clear Calc Estimated GFR Glucose POC Capillary Glucose 117 H 117 H 101 Calcium Magnesium Total Bilirubin AST ALT Alkaline Phosphatase Total Protein Albumin 07/09/24 05:33 WBC 7.2 RBC 2.58 L Hgb 7.6 L Hct 23.9 L MCV 92.6 MCH 29.5 MCHC 31.8 L RDW 13.1 Plt Count 124 L MPV 14.2 H Immature Gran % (Auto) 0.6 H Neut % (Auto) 71.5 Lymph % (Auto) 16.9 L Murray % (Auto) 9.0 H Eos % (Auto) 1.9 Baso % (Auto) 0.1 L Lymph # (Auto) 1.22 Murray # (Auto) 0.7 H Eos # (Auto) 0.1 Baso # (Auto) 0.0 Abs Immat Gran (auto) 0.04 H Absolute Neuts (auto) 5.2 Absolute Nucleated RBC 0.000 Nucleated RBC % 0.0 % Immature Plt Fraction 11.0 Sodium 139 Potassium 3.3 L Chloride 101 Carbon Dioxide 21 L Anion Gap 17 H BUN 158 H Creatinine 9.90 H Estim Creat Clear Calc 6 Estimated GFR 6 L Glucose 97 POC Capillary Glucose Calcium 7.2 L Magnesium 1.8 Total Bilirubin 0.3 AST 81 H ALT 56 H Alkaline Phosphatase 59 Total Protein 7.0 Albumin 2.9 L
--- NOTE | 2024-07-09 12:12 | PM.PNNEP ---
Subjective Date/time seen: 07/09/24 12:12 Interval history: Follow-up for acute kidney injury/acute renal failure on chronic kidney disease and hypernatremia. No real significant change noted -- refused to allow NG tube placement and since failed previous MBS, remains NPO and on gentle IVFs; no other acute issues/events overnight or earlier this morning; sodium level remains stable and continues to make reasonable urine output. Objective Data Vital Signs Vital Signs: Vital Signs Temp Pulse Resp BP Pulse Ox O2 Del Method FiO2 07/09/24 12:01 64 07/09/24 08:36 20 100 Room Air 07/09/24 08:04 68 07/09/24 06:00 98 F 55 L 20 139/77 100 07/09/24 04:00 64 07/09/24 00:00 96.9 F L 57 L 20 153/41 H 100 07/09/24 00:00 55 L 07/08/24 20:00 62 24 H 100 Room Air 21 07/08/24 20:00 64 07/08/24 16:00 62 Intake/Output Intake/Output: Intake & Output 07/06/24 07/07/24 07/08/24 07/09/24 23:59 23:59 23:59 22:59 Intake Total 2706.7 1048.3 2250 0 Output Total 2075 1050 1150 700 Balance 631.7 -1.7 1100 -700 Meds/Results Medications: Active Medications Generic Name Dose Route Start Last Admin Trade Name Freq PRN Reason Stop Dose Admin Atorvastatin Calcium 20 mg 07/02/24 09:00 07/09/24 08:42 Atorvastatin 20 Mg Tablet PO Not Given DAILY [facility] Clonidine HCl 1 patch 07/13/24 09:00 Clonidine 0.1 Mg/24 Hr Patch TRANSDERM WEEKLY [facility] Dextrose 12.5 gm 07/03/24 23:35 Dextrose 50% 25 Gm/50 Ml Syringe IV PUSH PRN PRN Hypoglycemia Protocol Ferrous Sulfate 325 mg 07/02/24 09:00 07/09/24 08:42 Ferrous Sulfate [address] PO 08/01/24 08:59 Not Given BID [facility] Glucagon 1 mg 07/03/24 23:35 Glucagon For Inj 1 Mg Vial IM PRN PRN Hypoglycemia Protocol Glucose 15 gm 07/03/24 23:35 Glucose Oral Gel 15 Gm Of Glucse In 37.5 Gm Tube PO PRN PRN Hypoglycemia Protocol Hydralazine HCl 50 mg 07/02/24 09:00 07/09/24 12:26 Hydralazine Hcl 50 Mg Tablet PO Not Given TID [facility] Dextrose 1,000 mls @ 50 mls/hr 07/02/24 19:15 07/08/24 22:54 Dextrose 5% 1,000 Ml IV CONT 50 mls/hr .Q20H [facility] Administration Dextrose 1,000 mls @ 100 mls/hr 07/03/24 23:35 Dextrose 5% 1,000 Ml IVPB PRN PRN Hypoglycemia Protocol Insulin Aspart 2 - 5 units 07/04/24 00:00 07/09/24 12:25 Insulin Aspart (*Bkc) 100 Units/Ml SUB-Q Not Given Q6HR [facility] Protocol Insulin Glargine 6 units 07/04/24 21:00 07/08/24 20:52 Insulin Glargine (*Bkc) 100 Units/Ml SUB-Q 6 units HS [facility]AH Administration Radiology Results: ITS Impressions Head CT 07/02/24 06:32 IMPRESSION: 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 Renal Ultrasound 07/02/24 11:50 IMPRESSION: 1. Normal right kidney. 2. Left kidney and bladder not evaluated. Abdomen X-Ray 07/06/24 16:36 IMPRESSION: 1. Normal bowel gas pattern. Modified Barium Swallow 07/07/24 15:06 IMPRESSION: Pharyngeal dysphagia with laryngeal penetration and aspiration with multiple consistencies. Please correlate with speech pathologist findings and specific feeding recommendations. Labs Labs: Laboratory Tests 07/09/24 05:33 07/09/24 05:33 Calcium 7.2 L Magnesium 1.8 Total Bilirubin 0.3 AST 81 H ALT 56 H Alkaline Phosphatase 59 Total Protein 7.0 Albumin 2.9 L
[2024-07-09 12:16] LABS: Glucose Point of Care 109 mg/dl (65-105)
[2024-07-09] MEDS: DEXTROSE 5% 1,000 ML 1,000 ML 50 ML IV CONT (17:15)
[2024-07-09 17:36] LABS: Glucose Point of Care 127 mg/dl (65-105)
[2024-07-10] VITALS (10 sets, daily range): BP systolic 145–175; BP diastolic 60–73; PULSE 53–80; RESP 18–20; TEMP 36.2–37.3; O2SAT 100
[2024-07-10 01:36] LABS: Glucose Point of Care 135 mg/dl (65-105)
[2024-07-10 06:13] LABS: Basophils Percent Auto 0.1 % (0.2-1.2); Eosinophils Percent Auto 0.2 % (0-4.4); Hematocrit 24.9 % (42.0-52.0); Immature Granulocyte Absolute 0.05 K/mm3 (0.00-0.031); Immature Granulocyte Percent A 0.6 % (0-0.5); Immature Platelet Fraction Pct 9.2 % (0.9-11.2); Lymphocytes Percent Auto 13.2 % (18.3-44.2); Mean Corpuscular HGB Conc 32.1 g/dl (32-36); Mean Corpuscular Hemoglobin 29.5 pg (26-34); Mean Corpuscular Volume 91.9 fl (80-100); Mean Platelet Volume 14.3 fl (7.4-10.4); Monocytes Absolute Auto 0.7 K/mm3 (0.1-0.6); Monocytes Percent Auto 8.4 % (2.6-8.5); Neutrophils Absolute Auto 6.5 K/mm3 (1.3-6.7); Neutrophils Percent Auto 77.5 % (45.5-73.1); Platelet Count Result 155 k/mm3 (150-375); Red Blood Count 2.71 M/mm3 (4.6-6.20); White Blood Count 8.4 K/mm3 (4.5-10.0)
[2024-07-10 06:40] LABS: Alanine Aminotransferase 43 U/L (6-50); Alkaline Phosphatase 63 U/L (38-126); Anion Gap 18 mmol/L (4-12); Aspartate Amino Transferase 47 U/L (17-59); Bilirubin,Total 0.4 mg/dL (0.2-1.3); Calcium 7.3 mg/dL (8.4-10.2); Carbon Dioxide 21 mmol/L (22-30); Chloride 100 mmol/L (98-107); Estimated CRCL calculation 6 ml/min; Estimated Glomerular Filt Rate 7; Glucose 129 mg/dL (65-110); Magnesium 1.7 mg/dL (1.6-2.3); Potassium 3.6 mmol/L (3.4-5.0); Sodium 139 mmol/L (137-145)
[2024-07-10 06:41] LABS: Blood Urea Nitrogen 154 mg/dL (9-20)
--- NOTE | 2024-07-10 10:46 | P.PNNP_ITS ---
Subjective Date/time seen: 07/10/24 10:46 Objective Data Vital Signs Vital Signs: Vital Signs Temp Pulse Resp BP Pulse Ox O2 Del Method FiO2 07/10/24 08:00 63 07/10/24 08:07 Room Air 07/10/24 06:00 97.7 F 62 20 150/70 H 100 07/10/24 04:00 80 07/10/24 01:22 99.1 F 68 20 145/65 H 100 07/10/24 00:00 80 07/09/24 20:00 69 16 85 L Room Air 21 07/09/24 20:00 79 07/09/24 21:20 97.8 F 69 16 85 L 07/09/24 16:04 79 07/09/24 14:30 20 156/72 H 100 07/09/24 14:00 97.7 F 107 H 20 196/71 H 100 Intake/Output Intake/Output: Intake & Output 07/08/24 07/09/24 07/09/24 07/10/24 00:59 00:59 23:59 23:59 Intake Total Output Total 550 Balance -550 Meds/Results Medications: Active Medications Generic Name Dose Route Start Last Admin Trade Name Freq PRN Reason Stop Dose Admin Atorvastatin Calcium 20 mg 07/02/24 09:00 07/10/24 08:05 Atorvastatin 20 Mg Tablet PO Not Given DAILY [facility] Clonidine HCl 1 patch 07/13/24 09:00 Clonidine 0.1 Mg/24 Hr Patch TRANSDERM WEEKLY [facility] Dextrose 12.5 gm 07/03/24 23:35 Dextrose 50% 25 Gm/50 Ml Syringe IV PUSH PRN PRN Hypoglycemia Protocol Ferrous Sulfate 325 mg 07/02/24 09:00 07/10/24 08:05 Ferrous Sulfate [address] PO 08/01/24 08:59 Not Given BID [facility] Glucagon 1 mg 07/03/24 23:35 Glucagon For Inj 1 Mg Vial IM PRN PRN Hypoglycemia Protocol Glucose 15 gm 07/03/24 23:35 Glucose Oral Gel 15 Gm Of Glucse In 37.5 Gm Tube PO PRN PRN Hypoglycemia Protocol Hydralazine HCl 50 mg 07/02/24 09:00 07/10/24 12:10 Hydralazine Hcl 50 Mg Tablet PO Not Given TID [facility] Dextrose 1,000 mls @ 50 mls/hr 07/02/24 19:15 07/09/24 17:15 Dextrose 5% 1,000 Ml IV CONT 50 mls/hr .Q20H [facility] Administration Dextrose 1,000 mls @ 100 mls/hr 07/03/24 23:35 Dextrose 5% 1,000 Ml IVPB PRN PRN Hypoglycemia Protocol Dextrose 1,000 mls @ 50 mls/hr 07/10/24 13:00 Dextrose 10% IV CONT .Q20H PRN if PN is interrupted Fat Emulsion Intravenous 250 mls @ 20.833 mls/hr 07/10/24 13:00 Lipids 20% IVPB Q24H [facility] Amino Acids/Electrolytes/Dextrose 2,000 mls @ 40 mls/hr 07/10/24 13:00 Clinimix E 4.25%/5% Solution IV CONT .Q24H [facility] Protocol Insulin Aspart 2 - 5 units 07/04/24 00:00 07/10/24 06:45 Insulin Aspart (*Bkc) 100 Units/Ml SUB-Q Not Given Q6HR [facility] Protocol Insulin Glargine 6 units 07/04/24 21:00 07/09/24 21:31 Insulin Glargine (*Bkc) 100 Units/Ml SUB-Q Not Given HS [facility] Radiology Results: ITS Impressions Head CT 07/02/24 06:32 IMPRESSION: 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 Renal Ultrasound 07/02/24 11:50 IMPRESSION: 1. Normal right kidney. 2. Left kidney and bladder not evaluated. Abdomen X-Ray 07/06/24 16:36 IMPRESSION: 1. Normal bowel gas pattern. Modified Barium Swallow 07/07/24 15:06 IMPRESSION: Pharyngeal dysphagia with laryngeal penetration and aspiration with multiple consistencies. Please correlate with speech pathologist findings and specific feeding recommendations. Labs Labs: Laboratory Tests 07/10/24 05:52 07/10/24 05:52 Calcium 7.3 L Magnesium 1.7 Total Bilirubin 0.4 AST 47 ALT 43 Alkaline Phosphatase 63 Total Protein 7.0 Albumin 3.0 L
--- NOTE | 2024-07-10 10:51 | PCNFU ---
Nutrition Follow-Up Complete: Suboptimal po intake related to appetite and feeding ability as evidenced by nursing report and charted intake - Change in status New Nutrition Problem: Inability to meet estimated nutrition needs PO related to swallowing difficulty as evidenced by failed MBSS, NPO status 5 days, need for full tube feeding PO intake greater than 50% of meals and supplements - Not meeting goal. Alternative nutrition support recommended Goal: Pt current nutrition is NPO (5 days of no nutrition). Nutrition recommendation: PPN as temporary measure until PEG tube can be placed. Clinmix 4.25/5 E @ 80 ml/h: 1153 kcal, 82 g protein, 2170 ml total volume. Last recorded weight is 64.3 kg. Bowel Motility: No bowel movements charted Labs Reviewed: Hgb 8.0, Hct 24.9, Alb 3.0, GFR 7, BUN 154, Cre 9.6 Meds Noted: D5, insulin Skin: No pressure injuries Additional Notes: NPO day 5. Discussed with RN re: PPN recommendations. Monitor intake, wt, labs. Follow up in 5 days.
--- NOTE | 2024-07-10 10:56 | PCDIET ---
Nutrition recommendation: PPN as temporary measure until PEG tube can be placed. Clinmix 4.25/5 E @ 80 ml/h: 1153 kcal, 82 g protein, 2170 ml total volume.
--- NOTE | 2024-07-10 11:51 | PM.IMPN ---
Progress Note: A&P Assessment and Plan (1) A-fib: Code(s): I48.91 - Unspecified atrial fibrillation Status: Acute (2) LINDSEY (acute kidney injury): Code(s): N17.9 - Acute kidney failure, unspecified Status: Acute Plan # Hypernatremia: Patient brought in for abnormal labs. Na was 163. Chloride 122. Clinically he appeared dehydrated. He takes oral intake and suspect he is not taking enough to sustain himself. He was started on 1/2NS and sodium dropped to 160. Changed to D5W and Na improved to 148 RN noted some coughing with feeding but no hypoxia. He is eating better at 75-100% of meals. Nephrology following and managing sodium levels. Appreciate their input Sodium level is trending down and normalized now # poor p.o. intake: Suspecting dysphagia vs inadequate feeding Consult speech evaluation and modified barium swallowing test per based on speech evaluation however could not be done due to emesis MBS failed. Will place NG tube and start tube feed. Once guardianship is determined he likely will need PEG tube placement Patient did not allow NG placement Will order PPN # Renal failure (ARF), acute on chronic: Cr toward the end of his last hospitalization was 3.7-3.9 and stable for a few days. BUN was in the 60's. BUN 199 with Cr 12.8 on admission. Suspect related to dehydration but Urine eos rare and Reymundo 80. FENa 8% with FEUrea 52% more consistent with ATN. Prot/Cr ratio 4.2gm c/w nephrotic range proteinuria as well. Renal US showing nomral right kidney but left kidney and bladder unable to be visualized. LINDSEY probably related to poor oral, worsening CKD IV, diuretic therapy (Lasix and HCTZ that is TID), UTI Lan in place: Urine output adequate Renal function: Cr up at 11.4 Potassium normal and serum bicarb better at 21 (AG 17) Continue IV fluids but suspect patient will need HD Monitor UOP, electrolytes and renal function Chronic patient has no improvement of renal function, acidosis improved. 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 # Acute UTI: UA is consistent with UTI. UCx collected. Hx of ESBL EColi so Meropenem started. UCx growing proteus that is mostly pansensitive. Change to Rocephin. # A-fib: Tele reviewed showing possible complete heart block. On clonidine patch currently which can slow conduction. Old EKG in September showing sinus rhythm with CHB and junctional escape rhythm. Cardiology note from Sep reviewed: patient with asymptomatic AV dissociation. PM is indicated but they felt not clinically indicated given the patient's poor healthy. EKG showing sinus rhythm with high degree AV block, Rt BBB and marked T wave changes in the anterolateral and inferior leads. Continue clonidine patch for now but start slow weaning He was on Eliquis at the time of last discharge but not listed as home med now. # Hypertension: Patient's blood pressure was reviewed on 07/04 Blood pressure remains reasonably well controlled. Will continue current meds as clonidine patch and hydralazine. Wean clonidine because of heart block However he is NPO currently and will continue clonidine for now and will do slow taper # Insulin dependent diabetes mellitus: Continue AccuCheks covering with sliding scale. Hypoglycemia protocol available as needed. Continue to monitor. Add Lantus low dose at night. # Dementia: Nonverbal. Not on treatment for dementia. Follow # Anemia: Hgb dropped to 6.4 from 8.9. No evidence of acute blood loss. Suspect related to IV fluids and that he was hemoconcentrated. Iron studies consistent with anemia of chronic disease probably related to his renal failure Transfused and Hgb better at 7.8 Follow and transfuse as needed. # DVT prophylaxis - SCDs. # Full code by default. Unclear who the guardian is. Investigation ongoing. # nausea vomiting: X-ray KUB with normal bowel gas pattern. Subjective Date/time seen: 07/10/24 11:51 Interval history: No overnight events. No new complaints. Remains NPO. Review of Systems Review of Systems: ROS unobtainable: Yes unobtainable due to mental status Exam Narrative: GENERAL: in no acute distress. Well-nourished. - EYES: EOMI. Anicteric. - HENT: dry mucous membranes. - LUNGS: Clear to auscultation bilaterally, no wheezing, rhonchi, or rales. - CARDIOVASCULAR: Regular rate and rhythm. No murmur. No JVD. - ABDOMEN: Soft, non-tender and non-distended. No palpable masses. - EXTREMITIES: No edema. Peripheral pulses 2+. Non-tender. - NEUROLOGIC: No focal neurological deficits. CN II-XII grossly intact. Contracture of lower extremities, - PSYCHIATRIC: Alert, able to follow up some commands, not oriented x 3. Appropriate mood and affect. - SKIN: No rashes or lesions. Warm. - LYMPH: No cervical lymphadenopathy. Objective Data Vital Signs Vital Signs: Vital Signs - 24 hr 07/09/24 12:01 07/09/24 14:00 07/09/24 14:30 Temperature 97.7 F Pulse Rate 64 107 H Respiratory Rate 20 20 Blood Pressure 196/71 H 156/72 H Pulse Oximetry 100 100 Oxygen Delivery Fraction of Inspired Oxygen 07/09/24 16:04 07/09/24 21:20 07/09/24 20:00 Temperature 97.8 F Pulse Rate 79 69 79 Respiratory Rate 16 Blood Pressure Pulse Oximetry 85 L Oxygen Delivery Fraction of Inspired Oxygen 07/09/24 20:00 07/10/24 00:00 07/10/24 01:22 Temperature 99.1 F Pulse Rate 69 80 68 Respiratory Rate 16 20 Blood Pressure 145/65 H Pulse Oximetry 85 L 100 Oxygen Delivery Room Air Fraction of Inspired Oxygen 21 07/10/24 04:00 07/10/24 06:00 07/10/24 08:07 Temperature 97.7 F Pulse Rate 80 62 Respiratory Rate 20 Blood Pressure 150/70 H Pulse Oximetry 100 Oxygen Delivery Room Air Fraction of Inspired Oxygen 07/10/24 08:00 Temperature Pulse Rate 63 Respiratory Rate Blood Pressure Pulse Oximetry Oxygen Delivery Fraction of Inspired Oxygen Intake/Output Intake/Output: Intake & Output 07/08/24 07/09/24 07/09/24 07/10/24 00:59 00:59 23:59 23:59 Intake Total Output Total 550 Balance -550 Meds/Results Medications: Active Medications Generic Name Dose Route Start Last Admin Trade Name Freq PRN Reason Stop Dose Admin Atorvastatin Calcium 20 mg 07/02/24 09:00 07/10/24 08:05 Atorvastatin 20 Mg Tablet PO Not Given DAILY URIAH Clonidine HCl 1 patch 07/13/24 09:00 Clonidine 0.1 Mg/24 Hr Patch TRANSDERM WEEKLY URIAH Dextrose 12.5 gm 07/03/24 23:35 Dextrose 50% 25 Gm/50 Ml Syringe IV PUSH PRN PRN Hypoglycemia Protocol Ferrous Sulfate 325 mg 07/02/24 09:00 07/10/24 08:05 Ferrous Sulfate [address] PO 08/01/24 08:59 Not Given BID URIAH Glucagon 1 mg 07/03/24 23:35 Glucagon For Inj 1 Mg Vial IM PRN PRN Hypoglycemia Protocol Glucose 15 gm 07/03/24 23:35 Glucose Oral Gel 15 Gm Of Glucse In 37.5 Gm Tube PO PRN PRN Hypoglycemia Protocol Hydralazine HCl 50 mg 07/02/24 09:00 07/10/24 08:05 Hydralazine Hcl 50 Mg Tablet PO Not Given TID URIAH Dextrose 1,000 mls @ 50 mls/hr 07/02/24 19:15 07/09/24 17:15 Dextrose 5% 1,000 Ml IV CONT 50 mls/hr .Q20H URIAH Administration Dextrose 1,000 mls @ 100 mls/hr 07/03/24 23:35 Dextrose 5% 1,000 Ml IVPB PRN PRN Hypoglycemia Protocol Insulin Aspart 2 - 5 units 07/04/24 00:00 07/10/24 06:45 Insulin Aspart (*Bkc) 100 Units/Ml SUB-Q Not Given Q6HR [facility] Protocol Insulin Glargine 6 units 07/04/24 21:00 07/09/24 21:31 Insulin Glargine (*Bkc) 100 Units/Ml SUB-Q Not Given HS [facility] Radiology Results: ITS Impressions Head CT 07/02/24 06:32 IMPRESSION: 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 Renal Ultrasound 07/02/24 11:50 IMPRESSION: 1. Normal right kidney. 2. Left kidney and bladder not evaluated. Abdomen X-Ray 07/06/24 16:36 IMPRESSION: 1. Normal bowel gas pattern. Modified Barium Swallow 07/07/24 15:06 IMPRESSION: Pharyngeal dysphagia with laryngeal penetration and aspiration with multiple consistencies. Please correlate with speech pathologist findings and specific feeding recommendations. Labs Labs: Laboratory Results - last 24 hr 07/09/24 07/09/24 07/10/24 12:10 17:30 01:26 WBC RBC Hgb Hct MCV MCH MCHC RDW Plt Count MPV Immature Gran % (Auto) Neut % (Auto) Lymph % (Auto) Hayes % (Auto) Eos % (Auto) Baso % (Auto) Lymph # (Auto) Hayes # (Auto) Eos # (Auto) Baso # (Auto) Abs Immat Gran (auto) Absolute Neuts (auto) Absolute Nucleated RBC Nucleated RBC % % Immature Plt Fraction Sodium Potassium Chloride Carbon Dioxide Anion Gap BUN Creatinine Estim Creat Clear Calc Estimated GFR Glucose POC Capillary Glucose 109 H 127 H 135 H Calcium Magnesium Total Bilirubin AST ALT Alkaline Phosphatase Total Protein Albumin 07/10/24 05:52 WBC 8.4 RBC 2.71 L Hgb 8.0 L Hct 24.9 L MCV 91.9 MCH 29.5 MCHC 32.1 RDW 13.0 Plt Count 155 MPV 14.3 H Immature Gran % (Auto) 0.6 H Neut % (Auto) 77.5 H Lymph % (Auto) 13.2 L Hayes % (Auto) 8.4 Eos % (Auto) 0.2 Baso % (Auto) 0.1 L Lymph # (Auto) 1.10 Hayes # (Auto) 0.7 H Eos # (Auto) 0.0 Baso # (Auto) 0.0 Abs Immat Gran (auto) 0.05 H Absolute Neuts (auto) 6.5 Absolute Nucleated RBC 0.000 Nucleated RBC % 0.0 % Immature Plt Fraction 9.2 Sodium 139 Potassium 3.6 Chloride 100 Carbon Dioxide 21 L Anion Gap 18 H BUN 154 H Creatinine 9.60 H Estim Creat Clear Calc 6 Estimated GFR 7 L Glucose 129 H POC Capillary Glucose Calcium 7.3 L Magnesium 1.7 Total Bilirubin 0.4 AST 47 ALT 43 Alkaline Phosphatase 63 Total Protein 7.0 Albumin 3.0 L
[2024-07-10 12:04] LABS: Glucose Point of Care 111 mg/dl (65-105)
[2024-07-10 12:07] LABS: Basophils Percent Auto 0.3 % (0.2-1.2); Eosinophils Percent Auto 0.5 % (0-4.4); Hematocrit 26.2 % (42.0-52.0); Hemoglobin 8.2 g/dL (14.0-18.0); Immature Granulocyte Absolute 0.04 K/mm3 (0.00-0.031); Immature Granulocyte Percent A 0.5 % (0-0.5); Immature Platelet Fraction Pct 7.7 % (0.9-11.2); Lymphocytes Absolute Auto 0.98 K/mm3 (0.9-3.2); Lymphocytes Percent Auto 13.2 % (18.3-44.2); Mean Corpuscular HGB Conc 31.3 g/dl (32-36); Mean Corpuscular Hemoglobin 30.9 pg (26-34); Mean Corpuscular Volume 98.9 fl (80-100); Mean Platelet Volume 13.9 fl (7.4-10.4); Monocytes Absolute Auto 0.6 K/mm3 (0.1-0.6); Monocytes Percent Auto 8.2 % (2.6-8.5); Neutrophils Absolute Auto 5.7 K/mm3 (1.3-6.7); Neutrophils Percent Auto 77.3 % (45.5-73.1); Platelet Count Result 152 k/mm3 (150-375); Red Blood Count 2.65 M/mm3 (4.6-6.20); White Blood Count 7.4 K/mm3 (4.5-10.0)
[2024-07-10 12:20] LABS: Transferrin 104 mg/dL (206-381)
[2024-07-10 12:22] LABS: Alanine Aminotransferase 37 U/L (6-50); Albumin Level 2.9 g/dL (3.5-5.1); Alkaline Phosphatase 57 U/L (38-126); Anion Gap 17 mmol/L (4-12); Aspartate Amino Transferase 41 U/L (17-59); Bilirubin,Total 0.4 mg/dL (0.2-1.3); Calcium 7.3 mg/dL (8.4-10.2); Carbon Dioxide 21 mmol/L (22-30); Chloride 101 mmol/L (98-107); Estimated CRCL calculation 6 ml/min; Estimated Glomerular Filt Rate 7; Glucose 122 mg/dL (65-110); Magnesium 1.7 mg/dL (1.6-2.3); Potassium 3.6 mmol/L (3.4-5.0); Sodium 139 mmol/L (137-145)
[2024-07-10 12:27] LABS: Blood Urea Nitrogen 159 mg/dL (9-20)
[2024-07-10 12:52] LABS: Partial Thromboplastin Time 36.5 Seconds (22.3-36.8)
[2024-07-10] MEDS: AMINO ACIDS 4.25%/D5W/LYTES/CA 2,000 ML 40 ML IV CONT (16:28)
[2024-07-10] MEDS: FAT EMULSIONS IV 20% 250 ML 20.83 ML IVPB (16:32)
[2024-07-10 17:37] LABS: Glucose Point of Care 111 mg/dl (65-105)
[2024-07-10 23:28] LABS: Glucose Point of Care 124 mg/dl (65-105)
[2024-07-11] VITALS (12 sets, daily range): BP systolic 101–159; BP diastolic 58–73; PULSE 55–72; RESP 17–18; TEMP 36.5–37.8; O2SAT 92–100
[2024-07-11 05:52] LABS: Anion Gap 18 mmol/L (4-12); Calcium 7.4 mg/dL (8.4-10.2); Carbon Dioxide 19 mmol/L (22-30); Chloride 102 mmol/L (98-107); Estimated CRCL calculation 6 ml/min; Estimated Glomerular Filt Rate 7; Glucose 110 mg/dL (65-110); Phosphorus 11.2 mg/dL (2.5-4.5); Potassium 3.7 mmol/L (3.4-5.0); Sodium 139 mmol/L (137-145); Triglycerides 144 mg/dL (<150)
[2024-07-11 05:59] LABS: Blood Urea Nitrogen 157 mg/dL (9-20)
[2024-07-11 06:46] LABS: Glucose Point of Care 112 mg/dl (65-105)
--- NOTE | 2024-07-11 08:52 | PCNFU ---
Nutrition Follow-Up Complete: Suboptimal po intake related to appetite and feeding ability as evidenced by nursing report and charted intake - Change in status New Nutrition Problem: Inability to meet estimated nutrition needs PO related to swallowing difficulty as evidenced by failed MBSS, NPO status 5 days, need for full tube feeding PO intake greater than 50% of meals and supplements - Not meeting goal PO. Meeting ~51% EER with current PPN order Goal: Pt current nutrition is PPN Clinmix 4.25/5E with lipids: 826 kcal, 41 g protein, 1210 ml total volume Nutrition recommendation: Increase PPN to goal rate of 80 ml/h to better meet estimated nutrition needs:. Clinmix 4.25/5 E @ 80 ml/h: 1153 kcal, 82 g protein, 2170 ml total volume. Last recorded weight is 64.3 kg. Bowel Motility: +2 BMs 07/10/24 Labs Reviewed: Hgb 8.0, Hct 24.9, Alb 3.0, GFR 7, BUN 154, Cre 9.6 Meds Noted: D5, insulin Skin: No pressure injuries Additional Notes: PPN was started s/t patient refusing NG tube feeding. Not able to place PEG because there is no POA to give consent at this time. Monitor intake, wt, labs. Follow up in 5 days.
--- NOTE | 2024-07-11 10:27 | PM.PNNEP ---
Subjective Date/time seen: 07/11/24 10:27 Objective Data Vital Signs Vital Signs: Vital Signs Temp Pulse Resp BP Pulse Ox O2 Del Method FiO2 07/11/24 08:00 Room Air 07/11/24 08:00 63 07/11/24 06:00 98.1 F 61 18 101/73 99 07/11/24 04:00 72 07/11/24 00:00 55 L 07/10/24 20:00 61 18 100 Room Air 21 07/10/24 20:00 53 L 07/10/24 22:00 98.2 F 61 18 175/60 H 100 07/10/24 16:00 60 Intake/Output Intake/Output: Intake & Output 07/09/24 07/09/24 07/10/24 07/11/24 00:59 23:59 23:59 23:59 Intake Total 250 Output Total 1150 1000 Balance -1150 -750 Meds/Results Medications: Active Medications Generic Name Dose Route Start Last Admin Trade Name Freq PRN Reason Stop Dose Admin Atorvastatin Calcium 20 mg 07/02/24 09:00 07/11/24 08:18 Atorvastatin 20 Mg Tablet PO Not Given DAILY URIAH Clonidine HCl 1 patch 07/13/24 09:00 Clonidine 0.1 Mg/24 Hr Patch TRANSDERM WEEKLY URIAH Dextrose 12.5 gm 07/03/24 23:35 Dextrose 50% 25 Gm/50 Ml Syringe IV PUSH PRN PRN Hypoglycemia Protocol Ferrous Sulfate 325 mg 07/02/24 09:00 07/11/24 08:18 Ferrous Sulfate [address] PO 08/01/24 08:59 Not Given BID URIAH Glucagon 1 mg 07/03/24 23:35 Glucagon For Inj 1 Mg Vial IM PRN PRN Hypoglycemia Protocol Glucose 15 gm 07/03/24 23:35 Glucose Oral Gel 15 Gm Of Glucse In 37.5 Gm Tube PO PRN PRN Hypoglycemia Protocol Hydralazine HCl 50 mg 07/02/24 09:00 07/11/24 13:40 Hydralazine Hcl 50 Mg Tablet PO Not Given TID URIAH Dextrose 1,000 mls @ 100 mls/hr 07/03/24 23:35 Dextrose 5% 1,000 Ml IVPB PRN PRN Hypoglycemia Protocol Dextrose 1,000 mls @ 50 mls/hr 07/10/24 13:00 Dextrose 10% IV CONT .Q20H PRN if PN is interrupted Fat Emulsion Intravenous 250 mls @ 20.833 mls/hr 07/10/24 13:00 07/11/24 04:33 Lipids 20% IVPB Infused Q24H URIAH Infusion Amino Acids/Electrolytes/Dextrose 2,000 mls @ 40 mls/hr 07/10/24 13:00 07/10/24 16:28 Clinimix E 4.25%/5% Solution IV CONT 40 mls/hr .Q24H URIAH Administration Protocol Insulin Glargine 6 units 07/04/24 21:00 07/10/24 21:23 Insulin Glargine (*Bkc) 100 Units/Ml SUB-Q Not Given HS URIAH Radiology Results: ITS Impressions Head CT 07/02/24 06:32 IMPRESSION: 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 Renal Ultrasound 07/02/24 11:50 IMPRESSION: 1. Normal right kidney. 2. Left kidney and bladder not evaluated. Abdomen X-Ray 07/06/24 16:36 IMPRESSION: 1. Normal bowel gas pattern. Modified Barium Swallow 07/07/24 15:06 IMPRESSION: Pharyngeal dysphagia with laryngeal penetration and aspiration with multiple consistencies. Please correlate with speech pathologist findings and specific feeding recommendations. Labs Labs: Laboratory Tests 07/10/24 11:58 07/11/24 05:25 Calcium 7.4 L Phosphorus 11.2 H
[2024-07-11 12:33] LABS: Glucose Point of Care 109 mg/dl (65-105)
--- NOTE | 2024-07-11 13:43 | P.PNIM_ITS ---
Progress Note: A&P Assessment and Plan (1) A-fib: Code(s): I48.91 - Unspecified atrial fibrillation Status: Acute (2) LINDSEY (acute kidney injury): Code(s): N17.9 - Acute kidney failure, unspecified Status: Acute Plan # Hypernatremia: Patient brought in for abnormal labs. Na was 163. Chloride 122. Clinically he appeared dehydrated. He takes oral intake and suspect he is not taking enough to sustain himself. He was started on 1/2NS and sodium dropped to 160. Changed to D5W and Na improved to 148 RN noted some coughing with feeding but no hypoxia. He is eating better at 75- 100% of meals. Nephrology following and managing sodium levels. Appreciate their input Sodium level is trending down and normalized now # poor p.o. intake: Suspecting dysphagia vs inadequate feeding Consult speech evaluation and modified barium swallowing test per based on speech evaluation however could not be done due to emesis MBS failed. Will place NG tube and start tube feed. Once guardianship is determined he likely will need PEG tube placement Patient did not allow NG placement Will order PPN Plan for G tube placement as patient not safe to eat and noone to decide for next course of action # Renal failure (ARF), acute on chronic: Cr toward the end of his last hospitalization was 3.7-3.9 and stable for a few days. BUN was in the 60's. BUN 199 with Cr 12.8 on admission. Suspect related to dehydration but Urine eos rare and Reymundo 80. FENa 8% with FEUrea 52% more consistent with ATN. Prot/Cr ratio 4.2gm c/w nephrotic range proteinuria as well. Renal US showing nomral right kidney but left kidney and bladder unable to be visualized. LINDSEY probably related to poor oral, worsening CKD IV, diuretic therapy (Lasix and HCTZ that is TID), UTI Lan in place: Urine output adequate Renal function: Cr up at 11.4 Potassium normal and serum bicarb better at 21 (AG 17) Continue IV fluids but suspect patient will need HD Monitor UOP, electrolytes and renal function Chronic patient has no improvement of renal function, acidosis improved. Management per franchise consultant # Chronic kidney disease, stage IV (severe): As above. # Acute UTI: UA is consistent with UTI. UCx collected. Hx of ESBL EColi so Meropenem started. UCx growing proteus that is mostly pansensitive. Change to Rocephin. finished the course of treatment # A-fib: Tele reviewed showing possible complete heart block. On clonidine patch currently which can slow conduction. Old EKG in September showing sinus rhythm with CHB and junctional escape rhythm. Cardiology note from Sep reviewed: patient with asymptomatic AV dissociation. PM is indicated but they felt not clinically indicated given the patient's poor healthy. EKG showing sinus rhythm with high degree AV block, Rt BBB and marked T wave changes in the anterolateral and inferior leads. Continue clonidine patch for now but start slow weaning He was on Eliquis at the time of last discharge but not listed as home med now. # Hypertension: Patient's blood pressure was reviewed on 07/04 Blood pressure remains reasonably well controlled. Will continue current meds as clonidine patch and hydralazine. Wean clonidine because of heart block However he is NPO currently and will continue clonidine for now and will do slow taper # Insulin dependent diabetes mellitus: Continue AccuCheks covering with sliding scale. Hypoglycemia protocol available as needed. Continue to monitor. Add Lantus low dose at night. # Dementia: Nonverbal. Not on treatment for dementia. Follow # Anemia: Hgb dropped to 6.4 from 8.9. No evidence of acute blood loss. Suspect related to IV fluids and that he was hemoconcentrated. Iron studies consistent with anemia of chronic disease probably related to his renal failure Transfused and Hgb better at 7.8 Follow and transfuse as needed. # DVT prophylaxis - SCDs. # Full code by default. Unclear who the guardian is. Investigation ongoing. # nausea vomiting: X-ray KUB with normal bowel gas pattern. Subjective Date/time seen: 07/11/24 13:43 Interval history: no overnight events, discussed with the care coordination, may need to procee with g tube for feeding since guardianship is not anywhere close to getting it accomplished. Review of Systems Review of Systems: ROS unobtainable: Yes unobtainable due to mental status Exam Narrative: GENERAL: in no acute distress. Well-nourished. - EYES: EOMI. Anicteric. - HENT: dry mucous membranes. - LUNGS: Clear to auscultation bilateral ly, no wheezing, rhonchi, or rales. - CARDIOVASCULAR: Regular rate and rhyth m. No murmur. No JVD. - ABDOMEN: Soft, non-tender and non-dist ended. No palpable masses. - EXTREMITIES: No edema. Peripheral puls es 2+. Non-tender. - NEUROLOGIC: No focal neurological defi cits. CN II-XII grossly intact. Contracture of lower extremities, - PSYCHIATRIC: Alert, able to follow up some commands, not oriented x 3. Appropriate mood and affect. - SKIN: No rashes or lesions. Warm. - LYMPH: No cervical lymphadenopathy. Objective Data Vital Signs Vital Signs: Vital Signs - 24 hr 07/10/24 13:58 07/10/24 16:00 07/10/24 22:00 Temperature 97.1 F L 98.2 F Pulse Rate 70 60 61 Respiratory Rate 18 18 Blood Pressure 155/73 H 175/60 H Pulse Oximetry 100 100 Oxygen Delivery Fraction of Inspired Oxygen 07/10/24 20:00 07/10/24 20:00 07/11/24 00:00 Temperature Pulse Rate 53 L 61 55 L Respiratory Rate 18 Blood Pressure Pulse Oximetry 100 Oxygen Delivery Room Air Fraction of Inspired Oxygen 21 07/11/24 04:00 07/11/24 06:00 07/11/24 08:00 Temperature 98.1 F Pulse Rate 72 61 63 Respiratory Rate 18 Blood Pressure 101/73 Pulse Oximetry 99 Oxygen Delivery Fraction of Inspired Oxygen 07/11/24 08:00 Temperature Pulse Rate Respiratory Rate Blood Pressure Pulse Oximetry Oxygen Delivery Room Air Fraction of Inspired Oxygen Intake/Output Intake/Output: Intake & Output 07/09/24 07/09/24 07/10/24 07/11/24 00:59 23:59 23:59 23:59 Intake Total 250 Output Total 1150 1000 Balance -1150 -750 Meds/Results Medications: Active Medications Generic Name Dose Route Start Last Admin Trade Name Freq PRN Reason Stop Dose Admin Atorvastatin Calcium 20 mg 07/02/24 09:00 07/11/24 08:18 Atorvastatin 20 Mg Tablet PO Not Given DAILY URIAH Clonidine HCl 1 patch 07/13/24 09:00 Clonidine 0.1 Mg/24 Hr Patch TRANSDERM WEEKLY URIAH Dextrose 12.5 gm 07/03/24 23:35 Dextrose 50% 25 Gm/50 Ml Syringe IV PUSH PRN PRN Hypoglycemia Protocol Ferrous Sulfate 325 mg 07/02/24 09:00 07/11/24 08:18 Ferrous Sulfate [address] PO 08/01/24 08:59 Not Given BID URIAH Glucagon 1 mg 07/03/24 23:35 Glucagon For Inj 1 Mg Vial IM PRN PRN Hypoglycemia Protocol Glucose 15 gm 07/03/24 23:35 Glucose Oral Gel 15 Gm Of Glucse In 37.5 Gm Tube PO PRN PRN Hypoglycemia Protocol Hydralazine HCl 50 mg 07/02/24 09:00 07/11/24 13:40 Hydralazine Hcl 50 Mg Tablet PO Not Given TID URIAH Dextrose 1,000 mls @ 100 mls/hr 07/03/24 23:35 Dextrose 5% 1,000 Ml IVPB PRN PRN Hypoglycemia Protocol Dextrose 1,000 mls @ 50 mls/hr 07/10/24 13:00 Dextrose 10% IV CONT .Q20H PRN if PN is interrupted Fat Emulsion Intravenous 250 mls @ 20.833 mls/hr 07/10/24 13:00 07/11/24 04:33 Lipids 20% IVPB Infused Q24H [facility] Infusion Amino Acids/Electrolytes/Dextrose 2,000 mls @ 40 mls/hr 07/10/24 13:00 07/10/24 16:28 Clinimix E 4.25%/5% Solution IV CONT 40 mls/hr .Q24H URIAH Administration Protocol Insulin Glargine 6 units 07/04/24 21:00 07/10/24 21:23 Insulin Glargine (*Bkc) 100 Units/Ml SUB-Q Not Given HS [facility] Radiology Results: ITS Impressions Head CT 07/02/24 06:32 IMPRESSION: 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 Renal Ultrasound 07/02/24 11:50 IMPRESSION: 1. Normal right kidney. 2. Left kidney and bladder not evaluated. Abdomen X-Ray 07/06/24 16:36 IMPRESSION: 1. Normal bowel gas pattern. Modified Barium Swallow 07/07/24 15:06 IMPRESSION: Pharyngeal dysphagia with laryngeal penetration and aspiration with multiple consistencies. Please correlate with speech pathologist findings and specific feeding recommendations. Labs Labs: Laboratory Results - last 24 hr 07/10/24 07/10/24 07/11/24 17:35 23:24 05:25 Sodium 139 Potassium 3.7 Chloride 102 Carbon Dioxide 19 L Anion Gap 18 H BUN 157 H Creatinine 9.20 H Estim Creat Clear Calc 6 Estimated GFR 7 L Glucose 110 POC Capillary Glucose 111 H 124 H Calcium 7.4 L Phosphorus 11.2 H Triglycerides 144 07/11/24 07/11/24 06:42 12:20 Sodium Potassium Chloride Carbon Dioxide Anion Gap BUN Creatinine Estim Creat Clear Calc Estimated GFR Glucose POC Capillary Glucose 112 H 109 H Calcium Phosphorus Triglycerides
[2024-07-11] MEDS: AMINO ACIDS 4.25%/D5W/LYTES/CA 2,000 ML 40 ML IV CONT (14:23)
[2024-07-11] MEDS: FAT EMULSIONS IV 20% 250 ML 20.83 ML IVPB (14:23)
--- NOTE | 2024-07-11 16:46 | P.CONGI_ITS ---
Assessment and Plan Assessment and plan (1) Anorexia: Code(s): R63.0 - Anorexia Status: Acute Assessment and Plan: risk for aspiration currently on TPN POA agreeable for PEG placement, will attempt tomorrow (2) Aspiration of food: Code(s): T17.928A - Food in respiratory tract, part unspecified causing other injury, initial encounter; W44.F3XA - Food entering into or through a natural orifice, initial encounter Status: Acute Assessment and Plan: high risk, abnormal swallowing study (3) Dementia: Code(s): F03.90 - Unspecified dementia, unspecified severity, without behavioral disturbance, psychotic disturbance, mood disturbance, and anxiety Status: Acute (4) Acute kidney injury superimposed on CKD: Code(s): N17.9 - Acute kidney failure, unspecified; N18.9 - Chronic kidney disease, unspecified Status: Acute Assessment and Plan: by nephrology (5) Acute hypernatremia: Code(s): E87.0 - Hyperosmolality and hypernatremia Status: Acute Assessment and Plan: improved GI Consult Note Consult date/time: 07/11/24 16:46 Reason for consult: anorexia, risk for aspiration, dementia HPI: Cristofer Bryant is a 73 year old male wiht history of advanced dementia and is nonverbal at baseline. He was brought in from nursing facility several days ago. History is obtained from records. He has history of atrial fibrillation on Eliquis, hypertension, dementia, nonverbal, insulin-dependent diabetes mellitus, history of UTI, CKD stage IV. He was brought in from intermediate with report of abnormal labs, BUN of 199, serum creatinine 12.8 and a remarkable sodium of 163. CT head brain performed in ER with preliminary report no acute findings. 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 Also chronic anemia but unchanged. MBS showed that he is at risk of aspiration and has been getting TPN. Finally primary team talked to POA and decided to consult for PEG placement. Review of Systems Review of Systems: ROS unobtainable: Yes unobtainable due to mental status PMFSH Past Medical History Medical History (Updated 07/11/24 @ 16:50 by Bashir Toribio MD) A-fib Anorexia Aspiration of food Dementia Hypertension Insulin dependent diabetes mellitus Family History Family History Other Unknown family medical history Social History Social History Smoking status: Unknown if ever smoked Second hand tobacco smoke exposure: No Alcohol intake: unknown Substance use: unknown Substance use type: unknown Spiritual care concerns: No Meds Home Medications and Allergies Home Medications Medication Instructions Recorded Confirmed Type atorvastatin 20 mg tablet 20 mg PO DAILY 04/28/23 07/02/24 History clonidine 0.3 mg/24 hr weekly 0.3 mg transdermal DAILY 04/28/23 07/02/24 History transdermal patch glucagon 1 mg solution for 1 mg IM PRN PRN Hypoglycemia 04/28/23 07/02/24 History injection (Glucagon Emergency Kit) hydrochlorothiazide 25 mg tablet 25 mg PO TID 04/28/23 07/02/24 History hydralazine 50 mg tablet 100 mg PO TID #90 tabs 05/02/23 07/02/24 Rx acetaminophen 325 mg tablet 650 mg PO Q6H PRN Pain (Scale 10/02/23 07/02/24 History Score 1-3) ferrous sulfate 325 mg (65 mg 325 mg PO BID 10/02/23 07/02/24 History iron) tablet dextrose 40 % oral gel (Glutose-15) 15 g PO PRN PRN Hypoglycemia #10 10/10/23 07/02/24 Rx grams ascorbic acid (vitamin C) 1,000 mg 1 g PO DAILY 07/02/24 07/02/24 History tablet docosahexaenoic acid (dha)-epa 120 1 cap PO DAILY 07/02/24 07/02/24 History mg-180 mg capsule furosemide 20 mg tablet 20 mg PO DAILY 07/02/24 07/02/24 History insulin glargine-yfgn 100 unit/mL 40 unit subcut HS 07/02/24 07/02/24 History (3 mL) subcutaneous pen insulin regular human 100 unit/mL sliding scale dose subcut ACHS 07/02/24 History injection solution (Humulin R Regular U-100 Insulin) Allergies Allergy/AdvReac Type Severity Reaction Status Date / Time No Known Allergies Allergy Verified 07/02/24 09:05 Vital Signs Vital Signs - 24 hr 07/10/24 22:00 07/10/24 20:00 07/10/24 20:00 Temperature 98.2 F Pulse Rate 61 53 L 61 Respiratory Rate 18 18 Blood Pressure 175/60 H Pulse Oximetry 100 100 Oxygen Delivery Room Air Fraction of Inspired Oxygen 21 07/11/24 00:00 07/11/24 04:00 07/11/24 06:00 Temperature 98.1 F Pulse Rate 55 L 72 61 Respiratory Rate 18 Blood Pressure 101/73 Pulse Oximetry 99 Oxygen Delivery Fraction of Inspired Oxygen 07/11/24 08:00 07/11/24 08:00 07/11/24 14:00 Temperature 97.7 F Pulse Rate 63 63 Respiratory Rate 17 Blood Pressure 136/72 Pulse Oximetry 96 Oxygen Delivery Room Air Fraction of Inspired Oxygen Exam Const: General: comfortable Other: chronically ill appearing HENMT: Face/Nose/Sinus: Normal nares present Eyes: General: appearance normal, both eyes and all related structures Neck: Neck: supple Resp: Effort & Inspection: normal respiratory effort Cardio: Rate: regular rate GI: GI Palp: Yes Soft to palpation and No Tenderness to palpation present (GI) Auscultation: normal bowel sounds Skin: General skin exam: normal color Neuro: Other: contractures, he is non verbal, not following commands Extrem: General: normal to inspection Psych: Other: unable to assess Results Labs 07/10/24 11:58 07/11/24 05:25 Labs: BMP 07/11/24 05:25 Sodium 139 Potassium 3.7 Chloride 102 Carbon Dioxide 19 L BUN 157 H Creatinine 9.20 H Glucose 110 Calcium 7.4 L
[2024-07-11 17:22] LABS: Glucose Point of Care 119 mg/dl (65-105)
--- NOTE | 2024-07-11 19:35 | ECG_ITS ---
Test Date: 2024-07-11 19:53:31 Measurements Intervals [place] Rate: 62 P: 0 PA: 0 QRS: -75 QRSD: 147 T: 114 QT: 513 QTc: 521 Interpretive Statements SINUS RHYTHM WITH HIGH GRADE AV BLOCK JUNCTIONAL ESCAPE RHYTHM RIGHT BUNDLE BRANCH BLOCK LEFT ANTERIOR FASCICULAR BLOCK ST-T WAVE ABNORMALITY IN ANTEROLAT/HIGH LAT LEADS- CONSIDER ISCHEMIA BASELINE ARTIFACT- AVR, AVL, AVF, V4 ABNORMAL ECG Compared to ECG 07/02/2024 17:47:52 HEART RATE HAS DECREASED Electronically Signed On 07-11-2024 22:11:15 GETTERING FILAMENT MACHINE OPERATOR by Jose Roberto Lindo D.O.
[2024-07-11] MEDS: INSULIN GLARGINE (*BKC) 100 UNITS/ML 6 UNITS SUB-Q (20:32)
[2024-07-11 20:38] LABS: Glucose Point of Care 110 mg/dl (65-105)
--- NOTE | 2024-07-11 21:15 | PC.NURSE ---
Pt transferred to IMU 207, report given to Malcom PONCE. Pt transported by bed with Jacquelyn PONCE, PPN/Lipids infusing at time of transport.
--- NOTE | 2024-07-11 21:18 | PC.NURSE ---
This patient, Cristofer Bryant, was received from [facility] on 07/11/24 at 2108. Patient/family oriented to unit policies and routines
[2024-07-12] VITALS (23 sets, daily range): BP systolic 100–191; BP diastolic 54–76; PULSE 49–75; RESP 16–22; TEMP 36.2–37.8; O2SAT 92–100
[2024-07-12 00:36] LABS: Glucose Point of Care 104 mg/dl (65-105)
[2024-07-12 04:55] LABS: Anion Gap 16 mmol/L (4-12); Calcium 7.3 mg/dL (8.4-10.2); Carbon Dioxide 20 mmol/L (22-30); Chloride 102 mmol/L (98-107); Estimated CRCL calculation 6 ml/min; Estimated Glomerular Filt Rate 7; Glucose 105 mg/dL (65-110); Phosphorus 11.3 mg/dL (2.5-4.5); Potassium 3.7 mmol/L (3.4-5.0); Sodium 138 mmol/L (137-145)
[2024-07-12 05:23] LABS: Blood Urea Nitrogen 157 mg/dL (9-20)
--- NOTE | 2024-07-12 08:25 | P.PNAN_ITS ---
Anes - Initial Pre Proc Eval Procedure: Operation Date: 07/12/24 10:00 Proposed Procedures p Percutaneous Endoscopic Gastrostomy - Bashir Toribio MD Date/Time: 07/12/24 08:25 Surgeon: Jennyfer Plasencia MD Pre Op Diagnosis: Renal failure, Urinary tract infection, Uremia Patient Data Age: 73 Gender: M Height: 1.73 m Weight: 64.3 kg Last Vital Signs Temp 36.7 C 07/12/24 08:00 Pulse 63 07/12/24 08:00 Resp 20 07/12/24 08:00 BP 173/65 H 07/12/24 08:00 Pulse Ox 100 07/12/24 08:00 O2 Del Method Room Air 07/12/24 04:00 FiO2 21 07/12/24 04:00 Allergies Allergy/AdvReac Type Severity Reaction Status Date / Time No Known Allergies Allergy Verified 07/02/24 09:05 Home Medications Medication Instructions Recorded Confirmed Type atorvastatin 20 mg tablet 20 mg PO DAILY 04/28/23 07/02/24 History clonidine 0.3 mg/24 hr weekly 0.3 mg transdermal DAILY 04/28/23 07/02/24 History transdermal patch glucagon 1 mg solution for 1 mg IM PRN PRN Hypoglycemia 04/28/23 07/02/24 His tory injection (Glucagon Emergency Kit) hydrochlorothiazide 25 mg tablet 25 mg PO TID 04/28/23 07/02/24 History hydralazine 50 mg tablet 100 mg PO TID #90 tabs 05/02/23 07/02/24 Rx acetaminophen 325 mg tablet 650 mg PO Q6H PRN Pain (Scale 10/02/23 07/02/24 History Score 1-3) ferrous sulfate 325 mg (65 mg 325 mg PO BID 10/02/23 07/02/24 History iron) tablet dextrose 40 % oral gel (Glutose-15) 15 g PO PRN PRN Hypoglycemia #10 10/10/23 07/02/24 Rx grams ascorbic acid (vitamin C) 1,000 mg 1 g PO DAILY 07/02/24 07/02/24 History tablet docosahexaenoic acid (dha)-epa 120 1 cap PO DAILY 07/02/24 07/02/24 History mg-180 mg capsule furosemide 20 mg tablet 20 mg PO DAILY 07/02/24 07/02/24 History insulin glargine-yfgn 100 unit/mL 40 unit subcut HS 07/02/24 07/02/24 History (3 mL) subcutaneous pen insulin regular human 100 unit/mL sliding scale dose subcut ACHS 07/02/24 History injection solution (Humulin R Regular U-100 Insulin) Laboratory Tests 07/11/24 07/11/24 07/11/24 12:20 17:10 20:31 Sodium Potassium Chloride Carbon Dioxide Anion Gap BUN Creatinine Estim Creat Clear Calc Estimated GFR Glucose POC Capillary Glucose 109 H mg/dl 119 H mg/dl 110 H mg/dl (65-105) (65-105) (65-105) Calcium Phosphorus 07/12/24 07/12/24 00:34 04:22 Sodium 138 mmol/L (137-145) Potassium 3.7 mmol/L (3.4-5.0) Chloride 102 mmol/L (98-107) Carbon Dioxide 20 L mmol/L (22-30) Anion Gap 16 H mmol/L (4-12) BUN 157 H mg/dL (9-20) Creatinine 8.70 H mg/dL (0.7-1.3) Estim Creat Clear Calc 6 ml/min Estimated GFR 7 L (59 - ) Glucose 105 mg/dL (65-110) POC Capillary Glucose 104 mg/dl (65-105) Calcium 7.3 L mg/dL (8.4-10.2) Phosphorus 11.3 H mg/dL (2.5-4.5) Patient hx anesthesia problems: none Family hx anesthesia problems: none Results Review: All pre-operative results and documents have been reviewed as part of the pre- operative evaluation. [facility] Past Medical History Medical History A-fib Anorexia Aspiration of food Dementia Hypertension Insulin dependent diabetes mellitus Family History Family History Other Unknown family medical history Social History Social History Smoking status: Unknown if ever smoked Second hand tobacco smoke exposure: No Alcohol intake: unknown Substance use: unknown Substance use type: unknown Spiritual care concerns: No Anes - Eval Final PreProcedure Day of Procedure 07/12/24 08:25 Patient weight: thin Heart: regular rate and rhythm Lungs: clear to auscultation Airway: Mallampati scale class II Neurological: other (nonverbal) Last oral intake: >/= 8 hours ASA classification: IV Emergent: no Anesthetic plan: proceed Anesthesia type and monitoring: general GIVS and standard monitoring Results Review: All pre-operative results and documents have been reviewed as part of the pre- operative evaluation. Informed Consent: The patient's anesthetic plan and its attendant risks and benefits were discussed with the patient/family/POA. Questions were solicited and answers provided to the satisfaction of the patient/family/POA.
[2024-07-12] MEDS: ceFAZolin 1 GM/NS 50 ML 1 GM/50 ML BAG IVPB (09:07)
[2024-07-12 09:19] LABS: Glucose Point of Care 102 mg/dl (65-105)
[2024-07-12] MEDS: LACTATED RINGERS 1,000 ML 150 ML IV CONT (09:31)
--- NOTE | 2024-07-12 10:48 | PC.NURSE ---
PT back from GI lab. PEG tube dressing C/D/I.
--- NOTE | 2024-07-12 10:55 | PCDIET ---
Tube feeding Recommendations: PPN d/c'd, PEG placed and orders to start tube feeds. Recommend Nepro @ a goal rate of 40ml/hr with 150ml flushes q 4 hrs to provide 1584kcals, 71g protein, 1539ml free water. This is sufficient to meet estimated needs.
--- NOTE | 2024-07-12 12:39 | P.PNNP_ITS ---
Subjective Date/time seen: 07/12/24 12:39 Interval history: Follow-up for acute kidney injury on chronic kidneys versus progression of chronic kidney disease. Status post G-tube placement earlier this morning for nutritional support; Objective Data Vital Signs Vital Signs: Vital Signs Temp Pulse Resp BP Pulse Ox O2 Del Method FiO2 07/12/24 12:00 52 L 22 H 96 Room Air 21 07/12/24 11:52 98.1 F 52 L 22 H 191/72 H 96 07/12/24 10:56 51 L 07/12/24 08:00 67 07/12/24 10:12 52 L 21 H 161/54 H 100 Room Air 07/12/24 10:02 50 L 20 155/56 H 100 Room Air 07/12/24 09:52 75 20 151/75 H 100 Room Air 07/12/24 09:32 97.2 F L 16 100/69 100 Room Air 07/12/24 08:00 Room Air 07/12/24 08:00 98.1 F 63 20 173/65 H 100 07/12/24 06:00 61 07/12/24 04:00 57 L 07/12/24 04:45 100.0 F H 65 18 152/76 H 96 07/12/24 04:00 60 18 92 Room Air 21 07/12/24 02:00 60 07/12/24 00:00 60 07/12/24 00:15 63 18 92 Room Air 21 07/11/24 23:45 100.0 F H 63 18 154/62 H 92 07/11/24 22:11 67 07/11/24 21:19 100.1 F H 58 L 18 159/70 H 100 07/11/24 20:00 72 07/11/24 20:07 98.3 F 63 18 156/58 H 100 07/11/24 16:00 62 Intake/Output Intake/Output: Intake & Output 07/09/24 07/10/24 07/11/24 07/12/24 23:59 23:59 23:59 23:59 Intake Total 1126.7 450 Output Total 1150 1650 250 Balance -1150 -523.3 200 Meds/Results Medications: Active Medications Generic Name Dose Route Start Last Admin Trade Name Freq PRN Reason Stop Dose Admin Atorvastatin Calcium 20 mg 07/02/24 09:00 07/12/24 08:13 Atorvastatin 20 Mg Tablet PO Not Given DAILY URIAH Clonidine HCl 1 patch 07/13/24 09:00 Clonidine 0.1 Mg/24 Hr Patch TRANSDERM WEEKLY [facility] Dextrose 12.5 gm 07/03/24 23:35 Dextrose 50% 25 Gm/50 Ml Syringe IV PUSH PRN PRN Hypoglycemia Protocol Ferrous Sulfate 325 mg 07/02/24 09:00 07/12/24 08:14 Ferrous Sulfate [address] PO 08/01/24 08:59 Not Given BID URIAH Glucagon 1 mg 07/03/24 23:35 Glucagon For Inj 1 Mg Vial IM PRN PRN Hypoglycemia Protocol Glucose 15 gm 07/03/24 23:35 Glucose Oral Gel 15 Gm Of Glucse In 37.5 Gm Tube PO PRN PRN Hypoglycemia Protocol Hydralazine HCl 50 mg 07/02/24 09:00 07/12/24 08:14 Hydralazine Hcl 50 Mg Tablet PO Not Given TID URIAH Dextrose 1,000 mls @ 100 mls/hr 07/03/24 23:35 Dextrose 5% 1,000 Ml IVPB PRN PRN Hypoglycemia Protocol Insulin Glargine 6 units 07/04/24 21:00 07/11/24 20:32 Insulin Glargine (*Bkc) 100 Units/Ml SUB-Q 6 units HS [facility] Administration Radiology Results: ITS Impressions Head CT 07/02/24 06:32 IMPRESSION: 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 Renal Ultrasound 07/02/24 11:50 IMPRESSION: 1. Normal right kidney. 2. Left kidney and bladder not evaluated. Abdomen X-Ray 07/06/24 16:36 IMPRESSION: 1. Normal bowel gas pattern. Modified Barium Swallow 07/07/24 15:06 IMPRESSION: Pharyngeal dysphagia with laryngeal penetration and aspiration with multiple consistencies. Please correlate with speech pathologist findings and specific feeding recommendations. Labs Labs: Laboratory Tests 07/10/24 11:58 07/12/24 04:22 Calcium 7.3 L Phosphorus 11.3 H
[2024-07-12 12:46] LABS: Glucose Point of Care 94 mg/dl (65-105)
--- NOTE | 2024-07-12 16:55 | P.PNIM_ITS ---
Progress Note: A&P Assessment and Plan (1) A-fib: Code(s): I48.91 - Unspecified atrial fibrillation Status: Acute (2) LINDSEY (acute kidney injury): Code(s): N17.9 - Acute kidney failure, unspecified Status: Acute Plan # Hypernatremia: Patient brought in for abnormal labs. Na was 163. Chloride 122. Clinically he appeared dehydrated. He takes oral intake and suspect he is not taking enough to sustain himself. He was started on 1/2NS and sodium dropped to 160. Changed to D5W and Na improved to 148 RN noted some coughing with feeding but no hypoxia. He is eating better at 75- 100% of meals. Nephrology following and managing sodium levels. Appreciate their input Sodium level is trending down and normalized now # poor p.o. intake: Suspecting dysphagia vs inadequate feeding Consult speech evaluation and modified barium swallowing test per based on speech evaluation however could not be done due to emesis MBS failed. Patient did not allow NG placement so TPN started Plan for G tube placement as patient not safe to eat and noone to decide for next course of action GTube placed today. # Renal failure (ARF), acute on chronic: Cr toward the end of his last hospitalization was 3.7-3.9 and stable for a few days. BUN was in the 60's. BUN 199 with Cr 12.8 on admission. Suspect related to dehydration but Urine eos rare and Reymundo 80. FENa 8% with FEUrea 52% more consistent with ATN. Prot/Cr ratio 4.2gm c/w nephrotic range proteinuria as well. Renal US showing normal right kidney but left kidney and bladder unable to be visualized. LINDSEY probably related to poor oral, worsening CKD IV, diuretic therapy (Lasix and HCTZ that is TID), UTI Lan in place: Urine output adequate Renal function: Cr down to 8.7 and BUN 157 Potassium normal and serum bicarb at 20 (AG 16) Off IV fluids Monitor UOP, electrolytes and renal function. Management per linux server engineer # Chronic kidney disease, stage IV (severe): As above. # Acute UTI: UA is consistent with UTI. UCx collected. Hx of ESBL EColi so Meropenem started. UCx growing proteus that is mostly pansensitive. Changed to Rocephin. finished the course of treatment # A-fib: Tele reviewed showing possible complete heart block. On clonidine patch currently which can slow conduction. Old EKG in September showing sinus rhythm with CHB and junctional escape rhythm. Cardiology note from Sep reviewed: patient with asymptomatic AV dissociation. PM is indicated but they felt not clinically indicated given the patient's poor healthy. EKG showing sinus rhythm with high degree AV block, Rt BBB and marked T wave changes in the anterolateral and inferior leads. Continue clonidine patch for now but start slow weaning He was on Eliquis at the time of last discharge but not listed as home med now. # Hypertension: Patient's blood pressure was reviewed on 07/12 Blood pressure mostly elevated Continue clonidine patch. Not on hydralazine since NPO. Wean clonidine because of heart block when able # Insulin dependent diabetes mellitus: Continue AccuCheks covering with sliding scale. Hypoglycemia protocol available as needed. Continue to monitor. Continue Lantus low dose at night. # Dementia: Nonverbal. Not on treatment for dementia. Follow # Anemia: Hgb dropped to 6.4 from 8.9. No evidence of acute blood loss. Suspect related to IV fluids and that he was hemoconcentrated. Iron studies consistent with anemia of chronic disease probably related to his renal failure Transfused and Hgb better in th 7-8 range Follow and transfuse as needed. # DVT prophylaxis - SCDs. # Full code by default. Unclear who the guardian is. Investigation ongoing. # nausea vomiting: X-ray KUB with normal bowel gas pattern. Subjective Date/time seen: 07/12/24 16:55 Interval history: 73yo male with dementia, CKD, DM, AFib and HTN here for worsening renal failure. Assuming care. Chart reviewed. Patient is nonverbal. He is awakens easily but unable to provide hx. Review of Systems Review of Systems: ROS unobtainable: Yes unobtainable due to mental status Exam Narrative: Tm 100.1 98.5 161/62 52 20 100% ra Gen - NARD Chest - lungs clear anteriorly. CV - RRR S1/S2. Tele showing PVCs Abd - Soft, NT/ND, +BS - Lan secured draining clear yellow urine. Ext - No pedal edema Neuro - Alert. non verbal. LE flexion contraction Skin - Warm and dry. Objective Data Vital Signs Vital Signs: Vital Signs - 24 hr 07/11/24 20:07 07/11/24 20:00 07/11/24 21:19 Temperature 98.3 F 100.1 F H Pulse Rate 63 72 58 L Respiratory Rate 18 18 Blood Pressure 156/58 H 159/70 H Pulse Oximetry 100 100 Oxygen Delivery Fraction of Inspired Oxygen 07/11/24 22:11 07/11/24 23:45 07/12/24 00:15 Temperature 100.0 F H Pulse Rate 67 63 63 Respiratory Rate 18 18 Blood Pressure 154/62 H Pulse Oximetry 92 92 Oxygen Delivery Room Air Fraction of Inspired Oxygen 21 07/12/24 00:00 07/12/24 02:00 07/12/24 04:00 Temperature Pulse Rate 60 60 60 Respiratory Rate 18 Blood Pressure Pulse Oximetry 92 Oxygen Delivery Room Air Fraction of Inspired Oxygen 21 07/12/24 04:45 07/12/24 04:00 07/12/24 06:00 Temperature 100.0 F H Pulse Rate 65 57 L 61 Respiratory Rate 18 Blood Pressure 152/76 H Pulse Oximetry 96 Oxygen Delivery Fraction of Inspired Oxygen 07/12/24 08:00 07/12/24 08:00 07/12/24 09:32 Temperature 98.1 F 97.2 F L Pulse Rate 63 Respiratory Rate 20 16 Blood Pressure 173/65 H 100/69 Pulse Oximetry 100 100 Oxygen Delivery Room Air Room Air Fraction of Inspired Oxygen 07/12/24 09:52 07/12/24 10:02 07/12/24 10:12 Temperature Pulse Rate 75 50 L 52 L Respiratory Rate 20 20 21 H Blood Pressure 151/75 H 155/56 H 161/54 H Pulse Oximetry 100 100 100 Oxygen Delivery Room Air Room Air Room Air Fraction of Inspired Oxygen 07/12/24 08:00 07/12/24 10:56 07/12/24 11:52 Temperature 98.1 F Pulse Rate 67 51 L 52 L Respiratory Rate 22 H Blood Pressure 191/72 H Pulse Oximetry 96 Oxygen Delivery Fraction of Inspired Oxygen 07/12/24 12:00 07/12/24 12:00 07/12/24 13:24 Temperature Pulse Rate 52 L 49 L 53 L Respiratory Rate 22 H Blood Pressure 152/66 H Pulse Oximetry 96 97 Oxygen Delivery Room Air Fraction of Inspired Oxygen 21 07/12/24 14:00 07/12/24 16:00 Temperature 98.5 F Pulse Rate 52 L 52 L Respiratory Rate 20 Blood Pressure 161/62 H Pulse Oximetry 100 Oxygen Delivery Fraction of Inspired Oxygen Intake/Output Intake/Output: Intake & Output 07/09/24 07/10/24 07/11/24 07/12/24 23:59 23:59 23:59 23:59 Intake Total 1126.7 450 Output Total 1150 1650 250 Balance -1150 -523.3 200 Meds/Results Medications: Active Medications Generic Name Dose Route Start Last Admin Trade Name Freq PRN Reason Stop Dose Admin Atorvastatin Calcium 20 mg 07/02/24 09:00 07/12/24 08:13 Atorvastatin 20 Mg Tablet PO Not Given DAILY [facility] Clonidine HCl 1 patch 07/13/24 09:00 Clonidine 0.1 Mg/24 Hr Patch TRANSDERM WEEKLY [facility] Dextrose 12.5 gm 07/03/24 23:35 Dextrose 50% 25 Gm/50 Ml Syringe IV PUSH PRN PRN Hypoglycemia Protocol Ferrous Sulfate 325 mg 07/02/24 09:00 07/12/24 08:14 Ferrous Sulfate [address] PO 08/01/24 08:59 Not Given BID [facility] Glucagon 1 mg 07/03/24 23:35 Glucagon For Inj 1 Mg Vial IM PRN PRN Hypoglycemia Protocol Glucose 15 gm 07/03/24 23:35 Glucose Oral Gel 15 Gm Of Glucse In 37.5 Gm Tube PO PRN PRN Hypoglycemia Protocol Hydralazine HCl 50 mg 07/02/24 09:00 07/12/24 08:14 Hydralazine Hcl 50 Mg Tablet PO Not Given TID [facility] Dextrose 1,000 mls @ 100 mls/hr 07/03/24 23:35 Dextrose 5% 1,000 Ml IVPB PRN PRN Hypoglycemia Protocol Insulin Glargine 6 units 07/04/24 21:00 07/11/24 20:32 Insulin Glargine (*Bkc) 100 Units/Ml SUB-Q 6 units HS [facility] Administration Radiology Results: ITS Impressions Head CT 07/02/24 06:32 IMPRESSION: 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 Renal Ultrasound 07/02/24 11:50 IMPRESSION: 1. Normal right kidney. 2. Left kidney and bladder not evaluated. Abdomen X-Ray 07/06/24 16:36 IMPRESSION: 1. Normal bowel gas pattern. Modified Barium Swallow 07/07/24 15:06 IMPRESSION: Pharyngeal dysphagia with laryngeal penetration and aspiration with multiple consistencies. Please correlate with speech pathologist findings and specific feeding recommendations. Labs Labs: Laboratory Results - last 24 hr 07/11/24 07/11/24 07/12/24 17:10 20:31 00:34 Sodium Potassium Chloride Carbon Dioxide Anion Gap BUN Creatinine Estim Creat Clear Calc Estimated GFR Glucose POC Capillary Glucose 119 H 110 H 104 Calcium Phosphorus 07/12/24 07/12/24 07/12/24 04:22 09:15 12:42 Sodium 138 Potassium 3.7 Chloride 102 Carbon Dioxide 20 L Anion Gap 16 H BUN 157 H Creatinine 8.70 H Estim Creat Clear Calc 6 Estimated GFR 7 L Glucose 105 POC Capillary Glucose 102 94 Calcium 7.3 L Phosphorus 11.3 H
[2024-07-12] MEDS: hydrALAZINE HCL 50 MG TABLET PO ×2 (18:54)
[2024-07-12 20:28] LABS: Glucose Point of Care 118 mg/dl (65-105)
[2024-07-12] MEDS: INSULIN GLARGINE (*BKC) 100 UNITS/ML 6 UNITS SUB-Q (20:29)
[2024-07-12 20:34] LABS: Glucose Point of Care 106 mg/dl (65-105)
[2024-07-13] VITALS (13 sets, daily range): BP systolic 118–159; BP diastolic 66–83; PULSE 65–97; RESP 18–22; TEMP 36.4–37.1; O2SAT 96–100
[2024-07-13 00:11] LABS: Glucose Point of Care 124 mg/dl (65-105)
[2024-07-13 05:29] LABS: Basophils Percent Auto 0.2 % (0.2-1.2); Eosinophils Absolute Auto 0.1 K/mm3 (0-0.3); Eosinophils Percent Auto 0.7 % (0-4.4); Hematocrit 23.8 % (42.0-52.0); Hemoglobin 7.7 g/dL (14.0-18.0); Immature Granulocyte Absolute 0.07 K/mm3 (0.00-0.031); Immature Granulocyte Percent A 0.8 % (0-0.5); Immature Platelet Fraction Pct 6.9 % (0.9-11.2); Lymphocytes Absolute Auto 1.27 K/mm3 (0.9-3.2); Lymphocytes Percent Auto 14.1 % (18.3-44.2); Mean Corpuscular HGB Conc 32.4 g/dl (32-36); Mean Corpuscular Hemoglobin 29.6 pg (26-34); Mean Corpuscular Volume 91.5 fl (80-100); Mean Platelet Volume 13.7 fl (7.4-10.4); Monocytes Absolute Auto 0.9 K/mm3 (0.1-0.6); Monocytes Percent Auto 10.2 % (2.6-8.5); Neutrophils Absolute Auto 6.7 K/mm3 (1.3-6.7); Platelet Count Result 189 k/mm3 (150-375)
[2024-07-13 06:08] LABS: Alanine Aminotransferase 31 U/L (6-50); Albumin Level 2.9 g/dL (3.5-5.1); Alkaline Phosphatase 73 U/L (38-126); Anion Gap 16 mmol/L (4-12); Aspartate Amino Transferase 70 U/L (17-59); Bilirubin,Total 0.3 mg/dL (0.2-1.3); Calcium 7.3 mg/dL (8.4-10.2); Carbon Dioxide 21 mmol/L (22-30); Chloride 104 mmol/L (98-107); Estimated CRCL calculation 6 ml/min; Estimated Glomerular Filt Rate 7; Glucose 105 mg/dL (65-110); Magnesium 1.8 mg/dL (1.6-2.3); Phosphorus 11.4 mg/dL (2.5-4.5); Potassium 3.8 mmol/L (3.4-5.0); Sodium 141 mmol/L (137-145)
[2024-07-13 07:04] LABS: Blood Urea Nitrogen 158 mg/dL (9-20)
[2024-07-13] MEDS: hydrALAZINE HCL 50 MG TABLET FEED TUBE ×3 (09:32→17:05)
[2024-07-13] MEDS: ATORVASTATIN 20 MG TABLET FEED TUBE (09:33)
[2024-07-13] MEDS: amLODIPine BESYLATE 5 MG TABLET FEED TUBE (09:34)
[2024-07-13 11:55] LABS: Triglycerides 86 mg/dL (<150)
[2024-07-13 12:10] LABS: Glucose Point of Care 152 mg/dl (65-105)
--- NOTE | 2024-07-13 13:32 | P.PNGI_ITS ---
Progress Note: A&P Assessment and Plan (1) Dementia: Code(s): F03.90 - Unspecified dementia, unspecified severity, without behavioral disturbance, psychotic disturbance, mood disturbance, and anxiety Status: Acute Assessment and Plan: he is getting tube feeding no issues, will follow as needed (2) Aspiration of food: Code(s): T17.928A - Food in respiratory tract, part unspecified causing other injury, initial encounter; [id number].F3XA - Food entering into or through a natural orifice, initial encounter Status: Acute (3) Anorexia: Code(s): R63.0 - Anorexia Status: Acute (4) Acute kidney injury superimposed on CKD: Code(s): N17.9 - Acute kidney failure, unspecified; N18.9 - Chronic kidney disease, unspecified Status: Acute Assessment and Plan: by nephrology (5) Acute UTI: Code(s): N39.0 - Urinary tract infection, site not specified Status: Acute Assessment and Plan: already treated (6) Acute hypernatremia: Code(s): E87.0 - Hyperosmolality and hypernatremia Status: Acute Assessment and Plan: resolved Subjective Date/time seen: 07/13/24 13:32 Interval history: g-tube placed yesterday, tolerating tube feeding Review of Systems Review of Systems: All systems reviewed & are unremarkable except as noted in HPI and below Exam Const: General: comfortable Other: chronically ill appearing HENMT: Face/Nose/Sinus: Normal nares present Eyes: General: appearance normal, both eyes and all related structures Neck: Neck: supple Resp: Effort & Inspection: normal respiratory effort Cardio: Rate: regular rate GI: GI Palp: Yes Soft to palpation and No Tenderness to palpation present (GI) Auscultation: normal bowel sounds Other: g-tube in position Skin: General skin exam: normal color Neuro: Other: contractures, he is non verbal, not following commands Extrem: General: normal to inspection Psych: Other: unable to assess Objective Data Vital Signs Vital Signs: Vital Signs - 24 hr 07/12/24 14:00 07/12/24 16:00 07/12/24 16:00 Temperature 98.5 F Pulse Rate 52 L 52 L 57 L Respiratory Rate 20 Blood Pressure 161/62 H Pulse Oximetry 100 Oxygen Delivery Fraction of Inspired Oxygen 07/12/24 16:00 07/12/24 18:00 07/12/24 19:39 Temperature 97.7 F Pulse Rate 57 L 61 64 Respiratory Rate 20 20 Blood Pressure 174/68 H Pulse Oximetry 100 100 Oxygen Delivery Room Air Fraction of Inspired Oxygen 21 07/12/24 19:54 07/12/24 20:00 07/12/24 22:00 Temperature Pulse Rate 64 67 69 Respiratory Rate 20 Blood Pressure Pulse Oximetry 100 Oxygen Delivery Room Air Fraction of Inspired Oxygen 21 07/12/24 23:45 07/13/24 00:00 07/13/24 00:00 Temperature 98 F Pulse Rate 69 65 70 Respiratory Rate 20 20 Blood Pressure 155/69 H Pulse Oximetry 100 100 Oxygen Delivery Room Air Fraction of Inspired Oxygen 07/13/24 02:00 07/13/24 04:00 07/13/24 04:00 Temperature Pulse Rate 65 65 75 Respiratory Rate 20 Blood Pressure Pulse Oximetry 100 Oxygen Delivery Room Air Fraction of Inspired Oxygen 21 07/13/24 06:00 07/13/24 04:00 07/13/24 08:14 Temperature 98.3 F 98.7 F Pulse Rate 78 68 66 Respiratory Rate 22 H 20 Blood Pressure 159/77 H 156/69 H Pulse Oximetry 100 98 Oxygen Delivery Fraction of Inspired Oxygen 07/13/24 11:20 Temperature 98.7 F Pulse Rate 72 Respiratory Rate 20 Blood Pressure 122/66 Pulse Oximetry 96 Oxygen Delivery Fraction of Inspired Oxygen Intake/Output Intake/Output: Intake & Output 07/10/24 07/11/24 07/12/24 07/13/24 23:59 23:59 23:59 23:59 Intake Total 1126.7 450 Output Total 1150 1650 450 250 Balance -1150 -523.3 0 -250 Meds/Results Medications: Active Medications Generic Name Dose Route Start Last Admin Trade Name Freq PRN Reason Stop Dose Admin Amlodipine Besylate 5 mg 07/13/24 09:00 07/13/24 09:34 Amlodipine Besylate 5 Mg Tablet FEED TUBE 5 mg DAILY URIAH Administration Atorvastatin Calcium 20 mg 07/13/24 09:00 07/13/24 09:33 Atorvastatin 20 Mg Tablet FEED TUBE 20 mg DAILY URIAH Administration Dextrose 12.5 gm 07/03/24 23:35 Dextrose 50% 25 Gm/50 Ml Syringe IV PUSH PRN PRN Hypoglycemia Protocol Glucagon 1 mg 07/03/24 23:35 Glucagon For Inj 1 Mg Vial IM PRN PRN Hypoglycemia Protocol Glucose 15 gm 07/03/24 23:35 Glucose Oral Gel 15 Gm Of Glucse In 37.5 Gm Tube PO PRN PRN Hypoglycemia Protocol Hydralazine HCl 50 mg 07/13/24 09:00 07/13/24 09:32 Hydralazine Hcl 50 Mg Tablet FEED TUBE 50 mg TID URIAH Administration Dextrose 1,000 mls @ 100 mls/hr 07/03/24 23:35 Dextrose 5% 1,000 Ml IVPB PRN PRN Hypoglycemia Protocol Insulin Glargine 6 units 07/04/24 21:00 07/12/24 20:29 Insulin Glargine (*Bkc) 100 Units/Ml SUB-Q 6 units HS URIAH Administration Radiology Results: ITS Impressions Head CT 07/02/24 06:32 IMPRESSION: 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 Renal Ultrasound 07/02/24 11:50 IMPRESSION: 1. Normal right kidney. 2. Left kidney and bladder not evaluated. Abdomen X-Ray 07/06/24 16:36 IMPRESSION: 1. Normal bowel gas pattern. Modified Barium Swallow 07/07/24 15:06 IMPRESSION: Pharyngeal dysphagia with laryngeal penetration and aspiration with multiple consistencies. Please correlate with speech pathologist findings and specific feeding recommendations. Labs Labs: Laboratory Results - last 24 hr 07/12/24 07/12/24 07/13/24 18:18 20:26 00:08 WBC RBC Hgb Hct MCV MCH MCHC RDW Plt Count MPV Immature Gran % (Auto) Neut % (Auto) Lymph % (Auto) [place] % (Auto) Eos % (Auto) Baso % (Auto) Lymph # (Auto) [place] # (Auto) Eos # (Auto) Baso # (Auto) Abs Immat Gran (auto) Absolute Neuts (auto) Absolute Nucleated RBC Nucleated RBC % % Immature Plt Fraction Sodium Potassium Chloride Carbon Dioxide Anion Gap BUN Creatinine Estim Creat Clear Calc Estimated GFR Glucose POC Capillary Glucose 118 H 106 H 124 H Calcium Phosphorus Magnesium Total Bilirubin AST ALT Alkaline Phosphatase Total Protein Albumin Triglycerides 07/13/24 07/13/24 07/13/24 04:27 04:31 11:22 WBC 9.0 RBC 2.60 L Hgb 7.7 L Hct 23.8 L MCV 91.5 D MCH 29.6 MCHC 32.4 RDW 13.0 Plt Count 189 MPV 13.7 H Immature Gran % (Auto) 0.8 H Neut % (Auto) 74.0 H Lymph % (Auto) 14.1 L [place] % (Auto) 10.2 H Eos % (Auto) 0.7 Baso % (Auto) 0.2 Lymph # (Auto) 1.27 [place] # (Auto) 0.9 H Eos # (Auto) 0.1 Baso # (Auto) 0.0 Abs Immat Gran (auto) 0.07 H Absolute Neuts (auto) 6.7 Absolute Nucleated RBC 0.000 Nucleated RBC % 0.0 % Immature Plt Fraction 6.9 Sodium 141 Potassium 3.8 Chloride 104 Carbon Dioxide 21 L Anion Gap 16 H BUN 158 H Creatinine 8.70 H Estim Creat Clear Calc 6 Estimated GFR 7 L Glucose 105 POC Capillary Glucose 152 H Calcium 7.3 L Phosphorus 11.4 H Magnesium 1.8 Total Bilirubin 0.3 AST 70 H ALT 31 Alkaline Phosphatase 73 Total Protein 7.0 Albumin 2.9 L Triglycerides 86
--- NOTE | 2024-07-13 13:40 | P.PNNP_ITS ---
Progress Note: A&P Assessment and Plan (1) LINDSEY (acute kidney injury): Code(s): N17.9 - Acute kidney failure, unspecified Status: Acute Assessment and Plan: * as noted by markedly elevate BUN and creatinine (BUN 199 and creatinine 12.8) on admission * evaluation to date noted: * renal ultrasound with normal right kidney (unable to visualize bladder and left kidney) * rare urine eosinophils (difficult to interpret in context of possible UTI) * urine electrolytes non-prerenal * nephrotic range proteinuria noted * suspect LINDSEY multifactorial ATN: * volume depletion/dehydration * diuretic use prior to admission * urinary tract infection * possible progression of CKD * no critical electrolytes, severe metabolic acidosis, or volume overload to necessitate urgent DEPUTY CORONER/dialysis * however, despite all interventions to date, his renal function has not significantly improved * as per my discussion with case management, he is full code...hence, the next step is DEPUTY CORONER/dialysis * I suppose it is possible that dialysis may be temporary but difficult to know since he had advanced kidney disease at baseline * consult Surgery for tunneled HD catheter placement * will initiated dialysis when catheter in place * follow trend of repeat labs and UOP (2) Chronic kidney disease, stage IV (severe): Code(s): N18.4 - Chronic kidney disease, stage 4 (severe) Status: Chronic Assessment and Plan: * baseline creatinine ~ 3.7 - 4.10mg/dl (based on last labs in Oct 2023) * due to a combo of diabetes, hypertension, and age-related change * cannot deny a possibility of CKD progression (3) Hypernatremia: Code(s): E87.0 - Hyperosmolality and hypernatremia Status: Resolved Assessment and Plan: * resolved * as noted on admission * presumably due to severe free water deficit due to lack of fluid intake (and likely volume depletion) * doubt diabetes insipidus (no evidence of polyuria) * on free water flushes with tube feedings * follow trend of repeat sodium levels (4) Acute UTI: Code(s): N39.0 - Urinary tract infection, site not specified Status: Acute Assessment and Plan: * admission UA highly suggestive * urine culture results noted * completed course of antibiotics (5) Hypertension: Code(s): I10 - Essential (primary) hypertension Status: Chronic Assessment and Plan: * reasonable control at this time * diuretics on hold due to #2 * follow trend of hemodyanmics (6) Anemia: Code(s): D64.9 - Anemia, unspecified Status: Acute Assessment and Plan: * noted drop in H/H by AM labs * suspect secondary to hemoconcentration from volume depletion * iron studies suggest chronic disease * PRBC transfusion per protocol * start JORGE once dialysis initiated * will dose SQ Retacrit x 2 doses for now * follow trend of H/H (7) Dementia: Code(s): F03.90 - Unspecified dementia, unspecified severity, without behavioral disturbance, psychotic disturbance, mood disturbance, and anxiety Status: Acute Assessment and Plan: * at baseline * continue supportive therapy (8) Insulin dependent diabetes mellitus: Status: Chronic Assessment and Plan: * follow accu-cheks * glycemic control per hospitalists Extensive discussion with care management/care coordination regarding the issues of his renal failure. 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 infection, worsening anemia, vascular disease...etc); however, he is apparently a full code so will proceed with dialysis initiation. Will continue to follow. Subjective Date/time seen: 07/13/24 13:40 Interval history: Follow-up for acute kidney injury/acute renal failure on chronic kidney disease. No real significant change at this time -- remains nonverbal and noncommunicative but in no apparent distress; tolerating tube feedings at this time but no real significant improvement in renal function although his electrolytes are stable and he continues to make good urine output (but BUN and creatinine remains elevated). Exam Narrative: General: frail appearing male in NAD Heart: normal S1 and S2; no rub Lungs: clear anteriolry Abdomen: soft, nontender, nondistended, positive bowel sounds Extremities: no cyanosis or clubbing; no edema; contracted posture Skin: warm and dry Objective Data Vital Signs Vital Signs: Vital Signs Temp Pulse Resp BP Pulse Ox O2 Del Method FiO2 07/13/24 12:00 72 07/13/24 12:00 Room Air 07/13/24 10:00 72 07/13/24 08:00 72 07/13/24 08:00 Room Air 07/13/24 11:20 98.7 F 72 20 122/66 96 07/13/24 08:14 98.7 F 66 20 156/69 H 98 07/13/24 04:00 98.3 F 68 22 H 159/77 H 100 07/13/24 06:00 78 07/13/24 04:00 75 07/13/24 04:00 65 20 100 Room Air 21 07/13/24 02:00 65 07/13/24 00:00 70 07/13/24 00:00 98 F 65 20 155/69 H 100 07/12/24 23:45 69 20 100 Room Air 07/12/24 22:00 69 07/12/24 20:00 67 07/12/24 19:54 64 20 100 Room Air 21 07/12/24 19:39 97.7 F 64 20 174/68 H 100 07/12/24 18:00 61 Intake/Output Intake/Output: Intake & Output 07/10/24 07/11/24 07/12/24 07/13/24 23:59 23:59 23:59 23:59 Intake Total 1126.7 450 Output Total 1150 1650 450 250 Balance -1150 -523.3 0 -250 Meds/Results Medications: Active Medications Generic Name Dose Route Start Last Admin Trade Name Freq PRN Reason Stop Dose Admin Acetaminophen 650 mg 07/13/24 16:30 Acetaminophen 325 Mg Tablet FEED TUBE Q6H PRN Pain (Scale Score 1-3) Amlodipine Besylate 5 mg 07/13/24 09:00 07/13/24 09:34 Amlodipine Besylate 5 Mg Tablet FEED TUBE 5 mg DAILY URIAH Administration Atorvastatin Calcium 20 mg 07/13/24 09:00 07/13/24 09:33 Atorvastatin 20 Mg Tablet FEED TUBE 20 mg DAILY URIAH Administration Dextrose 12.5 gm 07/03/24 23:35 Dextrose 50% 25 Gm/50 Ml Syringe IV PUSH PRN PRN Hypoglycemia Protocol Glucagon 1 mg 07/03/24 23:35 Glucagon For Inj 1 Mg Vial IM PRN PRN Hypoglycemia Protocol Glucose 15 gm 07/03/24 23:35 Glucose Oral Gel 15 Gm Of Glucse In 37.5 Gm Tube PO PRN PRN Hypoglycemia Protocol Heparin Sodium (Porcine) 5,000 units 07/13/24 21:00 Heparin Sodium 5,000 Units/Ml Vial SUB-Q Q12HR URIAH Hydralazine HCl 50 mg 07/13/24 09:00 07/13/24 17:05 Hydralazine Hcl 50 Mg Tablet FEED TUBE 50 mg TID URIAH Administration Dextrose 1,000 mls @ 100 mls/hr 07/03/24 23:35 Dextrose 5% 1,000 Ml IVPB PRN PRN Hypoglycemia Protocol Insulin Glargine 6 units 07/04/24 21:00 07/12/24 20:29 Insulin Glargine (*Bkc) 100 Units/Ml SUB-Q 6 units HS URIAH Administration Radiology Results: ITS Impressions Head CT 07/02/24 06:32 IMPRESSION: 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 Renal Ultrasound 07/02/24 11:50 IMPRESSION: 1. Normal right kidney. 2. Left kidney and bladder not evaluated. Abdomen X-Ray 07/06/24 16:36 IMPRESSION: 1. Normal bowel gas pattern. Modified Barium Swallow 07/07/24 15:06 IMPRESSION: Pharyngeal dysphagia with laryngeal penetration and aspiration with multiple consistencies. Please correlate with speech pathologist findings and specific feeding recommendations. Labs Labs: Laboratory Tests 07/13/24 04:31 07/13/24 04:31 Calcium 7.3 L Phosphorus 11.4 H Magnesium 1.8 Total Bilirubin 0.3 AST 70 H ALT 31 Alkaline Phosphatase 73 Total Protein 7.0 Albumin 2.9 L
--- NOTE | 2024-07-13 15:58 | PM.IMPN ---
Progress Note: A&P Assessment and Plan (1) Aspiration of food: Code(s): T17.928A - Food in respiratory tract, part unspecified causing other injury, initial encounter; W44.F3XA - Food entering into or through a natural orifice, initial encounter Status: Acute Assessment and Plan: Patient with poor p.o. intake: Suspecting dysphagia vs inadequate feeding Consulted speech therapy. MBS completed showing patient should be non-oral feeding. Patient did not allow NG placement so TPN started. GI consulted Plan for G tube placement as patient not safe to eat and no one to decide for next course of action GTube placed 07/12 and tolerated this well. TF started and tolerating. Rn Diabetes Educator assisting with TF. (2) Renal failure (ARF), acute on chronic: Code(s): N17.9 - Acute kidney failure, unspecified; N18.9 - Chronic kidney disease, unspecified Status: Acute Assessment and Plan: Patient with Renal failure (ARF), acute on chronic: Cr toward the end of his last hospitalization was 3.7-3.9 and stable for a few days. BUN was in the 60's. BUN 199 with Cr 12.8 on this admission. Suspect related to dehydration but Urine eos rare and Reymundo 80. FENa 8% with FEUrea 52% more consistent with ATN. Prot/Cr ratio 4.2gm c/w nephrotic range proteinuria as well. Renal US showing normal right kidney but left kidney and bladder unable to be visualized. LINDSEY probably related to poor oral intake, worsening CKD IV, diuretic therapy (Lasix and HCTZ that is TID), UTI Lan in place: Urine output decreased yesterday Renal function unchanged with Cr at 8.7 and BUN 157 Potassium normal and serum bicarb at 21 (AG 16) Off IV fluids Monitor UOP, electrolytes and renal function. Management per linseed cake trimmer. Cinsider HD. Phos 11.4. Phosphate binder? 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 Was on clonidine patch on admission which can slow conduction. Old EKG in September showing sinus rhythm with CHB and junctional escape rhythm. Cardiology note from Sep reviewed: patient with asymptomatic AV dissociation. PM is indicated but they felt not clinically indicated given the patient's poor healthy. Has had this rhythm as far back as April 2023. EKG showing sinus rhythm with high degree AV block, Rt BBB and marked T wave changes in the anterolateral and inferior leads. Stop clonidine patch today. He was on Eliquis at the time of last discharge but not listed as home med now. Consider resuming closer to discharge. Monitor on tele (4) A-fib: Code(s): I48.91 - Unspecified atrial fibrillation Status: Acute Assessment and Plan: As above (5) Hypernatremia: Code(s): E87.0 - Hyperosmolality and hypernatremia Status: Acute Assessment and Plan: Patient brought in for abnormal labs. Na was 163. Chloride 122. Clinically he appeared dehydrated. He takes oral intake and suspect he is not taking enough to sustain himself. He was started on 1/2NS and sodium dropped to 160. Changed to D5W and Na improved to 148 RN noted some coughing with feeding but no hypoxia. He was eating but speech therapy felt he was not safe to do so. Nephrology followed and managed sodium levels. Appreciate their input Sodium level is normal now Follow (6) Chronic kidney disease, stage IV (severe): Code(s): N18.4 - Chronic kidney disease, stage 4 (severe) Status: Chronic Assessment and Plan: Patient with CKD, stage IV As above. (7) Acute UTI: Code(s): N39.0 - Urinary tract infection, site not specified Status: Acute Assessment and Plan: UA is consistent with UTI. UCx collected. Hx of ESBL EColi so Meropenem started. UCx growing proteus that is mostly pansensitive. Changed to Rocephin and he has since completed a coarse of treatment (8) Hypertension: Code(s): I10 - Essential (primary) hypertension Status: Chronic Assessment and Plan: Patient's blood pressure was reviewed on 07/13 Blood pressure mildly elevated. Stop clonidine patch. Hydralazine resumed via GTube. Add Norvasc (9) Insulin dependent diabetes mellitus: Status: Chronic Assessment and Plan: Glucose reviewed on 07/13 Continue AccuCheks covering with sliding scale. Hypoglycemia protocol available as needed. Continue to monitor. Continue Lantus low dose at night. Check A1c. (10) Anemia: Code(s): D64.9 - Anemia, unspecified Status: Acute Assessment and Plan: Hgb dropped to 6.4 from 8.9. No evidence of acute blood loss. Suspect related to IV fluids and that he was hemoconcentrated. Iron studies consistent with anemia of chronic disease probably related to his renal failure Transfused and Hgb better in the 7-8 range Follow and transfuse as needed. (11) Dementia: Code(s): F03.90 - Unspecified dementia, unspecified severity, without behavioral disturbance, psychotic disturbance, mood disturbance, and anxiety Status: Acute Assessment and Plan: Patient is nonverbal. Not on treatment for dementia. Follow Plan DVT prophylaxis - SCDs. Add heparin SQ Full code by default. Unclear who the guardian is. Investigation ongoing. Subjective Date/time seen: 07/13/24 15:58 Interval history: 73yo male with dementia, CKD, DM, AFib and HTN here for worsening renal failure. Patient is nonverbal. He is awake but unable to provide hx. Toelrtaing TF Review of Systems Review of Systems: ROS unobtainable: Yes unobtainable due to mental status Exam Narrative: AF 98.4 145/66 66 18 100% ra Gen - NARD Chest - clear anteriorly to quiet respirations. nml RR CV - irregular S1/S2. Tele showing jct rhythm with PVCs Abd - Soft, ND, GTube site clean and dry - Lan secured draining clear yellow urine. Ext - No pedal edema Neuro - Alert. non verbal. LE flexion contraction Skin - Warm and dry. Objective Data Vital Signs Vital Signs: Vital Signs - 24 hr 07/12/24 16:00 07/12/24 16:00 07/12/24 16:00 Temperature 98.5 F Pulse Rate 52 L 57 L 57 L Respiratory Rate 20 20 Blood Pressure 161/62 H Pulse Oximetry 100 100 Oxygen Delivery Room Air Fraction of Inspired Oxygen 07/12/24 18:00 07/12/24 19:39 07/12/24 19:54 Temperature 97.7 F Pulse Rate 61 64 64 Respiratory Rate 20 20 Blood Pressure 174/68 H Pulse Oximetry 100 100 Oxygen Delivery Room Air Fraction of Inspired Oxygen 21 07/12/24 20:00 07/12/24 22:00 07/12/24 23:45 Temperature Pulse Rate 67 69 69 Respiratory Rate 20 Blood Pressure Pulse Oximetry 100 Oxygen Delivery Room Air Fraction of Inspired Oxygen 07/13/24 00:00 07/13/24 00:00 07/13/24 02:00 Temperature 98 F Pulse Rate 65 70 65 Respiratory Rate 20 Blood Pressure 155/69 H Pulse Oximetry 100 Oxygen Delivery Fraction of Inspired Oxygen 07/13/24 04:00 07/13/24 04:00 07/13/24 06:00 Temperature Pulse Rate 65 75 78 Respiratory Rate 20 Blood Pressure Pulse Oximetry 100 Oxygen Delivery Room Air Fraction of Inspired Oxygen 21 07/13/24 04:00 07/13/24 08:14 07/13/24 11:20 Temperature 98.3 F 98.7 F 98.7 F Pulse Rate 68 66 72 Respiratory Rate 22 H 20 20 Blood Pressure 159/77 H 156/69 H 122/66 Pulse Oximetry 100 98 96 Oxygen Delivery Fraction of Inspired Oxygen 07/13/24 08:00 07/13/24 08:00 07/13/24 10:00 Temperature Pulse Rate 72 72 Respiratory Rate Blood Pressure Pulse Oximetry Oxygen Delivery Room Air Fraction of Inspired Oxygen 07/13/24 12:00 07/13/24 12:00 07/13/24 14:00 Temperature Pulse Rate 72 97 Respiratory Rate Blood Pressure Pulse Oximetry Oxygen Delivery Room Air Fraction of Inspired Oxygen 07/13/24 15:22 Temperature 98.4 F Pulse Rate 66 Respiratory Rate 18 Blood Pressure 145/66 H Pulse Oximetry 100 Oxygen Delivery Fraction of Inspired Oxygen Intake/Output Intake/Output: Intake & Output 07/10/24 07/11/24 07/12/24 07/13/24 23:59 23:59 23:59 23:59 Intake Total 1126.7 450 Output Total 1150 1650 450 250 Balance -1150 -523.3 0 -250 Meds/Results Medications: Active Medications Generic Name Dose Route Start Last Admin Trade Name Freq PRN Reason Stop Dose Admin Amlodipine Besylate 5 mg 07/13/24 09:00 07/13/24 09:34 Amlodipine Besylate 5 Mg Tablet FEED TUBE 5 mg DAILY URIAH Administration Atorvastatin Calcium 20 mg 07/13/24 09:00 07/13/24 09:33 Atorvastatin 20 Mg Tablet FEED TUBE 20 mg DAILY URIAH Administration Dextrose 12.5 gm 07/03/24 23:35 Dextrose 50% 25 Gm/50 Ml Syringe IV PUSH PRN PRN Hypoglycemia Protocol Glucagon 1 mg 07/03/24 23:35 Glucagon For Inj 1 Mg Vial IM PRN PRN Hypoglycemia Protocol Glucose 15 gm 07/03/24 23:35 Glucose Oral Gel 15 Gm Of Glucse In 37.5 Gm Tube PO PRN PRN Hypoglycemia Protocol Hydralazine HCl 50 mg 07/13/24 09:00 07/13/24 09:32 Hydralazine Hcl 50 Mg Tablet FEED TUBE 50 mg TID URIAH Administration Dextrose 1,000 mls @ 100 mls/hr 07/03/24 23:35 Dextrose 5% 1,000 Ml IVPB PRN PRN Hypoglycemia Protocol Insulin Glargine 6 units 07/04/24 21:00 07/12/24 20:29 Insulin Glargine (*Bkc) 100 Units/Ml SUB-Q 6 units HS URIAH Administration Radiology Results: ITS Impressions Head CT 07/02/24 06:32 IMPRESSION: 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 Renal Ultrasound 07/02/24 11:50 IMPRESSION: 1. Normal right kidney. 2. Left kidney and bladder not evaluated. Abdomen X-Ray 07/06/24 16:36 IMPRESSION: 1. Normal bowel gas pattern. Modified Barium Swallow 07/07/24 15:06 IMPRESSION: Pharyngeal dysphagia with laryngeal penetration and aspiration with multiple consistencies. Please correlate with speech pathologist findings and specific feeding recommendations. Labs Labs: Laboratory Results - last 24 hr 07/12/24 07/12/24 07/13/24 18:18 20:26 00:08 WBC RBC Hgb Hct MCV MCH MCHC RDW Plt Count MPV Immature Gran % (Auto) Neut % (Auto) Lymph % (Auto) Harrison % (Auto) Eos % (Auto) Baso % (Auto) Lymph # (Auto) Harrison # (Auto) Eos # (Auto) Baso # (Auto) Abs Immat Gran (auto) Absolute Neuts (auto) Absolute Nucleated RBC Nucleated RBC % % Immature Plt Fraction Sodium Potassium Chloride Carbon Dioxide Anion Gap BUN Creatinine Estim Creat Clear Calc Estimated GFR Glucose POC Capillary Glucose 118 H 106 H 124 H Calcium Phosphorus Magnesium Total Bilirubin AST ALT Alkaline Phosphatase Total Protein Albumin Triglycerides 07/13/24 07/13/24 07/13/24 04:27 04:31 11:22 WBC 9.0 RBC 2.60 L Hgb 7.7 L Hct 23.8 L MCV 91.5 D MCH 29.6 MCHC 32.4 RDW 13.0 Plt Count 189 MPV 13.7 H Immature Gran % (Auto) 0.8 H Neut % (Auto) 74.0 H Lymph % (Auto) 14.1 L Harrison % (Auto) 10.2 H Eos % (Auto) 0.7 Baso % (Auto) 0.2 Lymph # (Auto) 1.27 Harrison # (Auto) 0.9 H Eos # (Auto) 0.1 Baso # (Auto) 0.0 Abs Immat Gran (auto) 0.07 H Absolute Neuts (auto) 6.7 Absolute Nucleated RBC 0.000 Nucleated RBC % 0.0 % Immature Plt Fraction 6.9 Sodium 141 Potassium 3.8 Chloride 104 Carbon Dioxide 21 L Anion Gap 16 H BUN 158 H Creatinine 8.70 H Estim Creat Clear Calc 6 Estimated GFR 7 L Glucose 105 POC Capillary Glucose 152 H Calcium 7.3 L Phosphorus 11.4 H Magnesium 1.8 Total Bilirubin 0.3 AST 70 H ALT 31 Alkaline Phosphatase 73 Total Protein 7.0 Albumin 2.9 L Triglycerides 86
[2024-07-13 18:18] LABS: Glucose Point of Care 158 mg/dl (65-105)
--- NOTE | 2024-07-13 19:13 | PC.NURSE ---
Pt transferred to [facility] via bed. Report to ROSARIO Terry.
[2024-07-13] MEDS: INSULIN GLARGINE (*BKC) 100 UNITS/ML 6 UNITS SUB-Q (21:07)
[2024-07-13] MEDS: HEPARIN SODIUM 5,000 UNITS/ML VIAL 5000 UNITS SUB-Q (21:07)
[2024-07-14] VITALS (9 sets, daily range): BP systolic 100–143; BP diastolic 54–82; PULSE 60–114; RESP 14–22; TEMP 36.1–36.6; O2SAT 99–100
[2024-07-14 00:13] LABS: Glucose Point of Care 169 mg/dl (65-105)
[2024-07-14 07:12] LABS: Hematocrit 23.9 % (42.0-52.0); Hemoglobin 7.6 g/dL (14.0-18.0); Immature Platelet Fraction Pct 6.2 % (0.9-11.2); Mean Corpuscular HGB Conc 31.8 g/dl (32-36); Mean Corpuscular Hemoglobin 29.7 pg (26-34); Mean Corpuscular Volume 93.4 fl (80-100); Mean Platelet Volume 13.2 fl (7.4-10.4); Platelet Count Result 203 k/mm3 (150-375); Red Blood Count 2.56 M/mm3 (4.6-6.20); Red Cell Distribution Width 13.2 % (11.5-14.5); White Blood Count 8.3 K/mm3 (4.5-10.0)
[2024-07-14 07:38] LABS: Anion Gap 17 mmol/L (4-12); Calcium 7.3 mg/dL (8.4-10.2); Carbon Dioxide 20 mmol/L (22-30); Chloride 104 mmol/L (98-107); Estimated CRCL calculation 6 ml/min; Estimated Glomerular Filt Rate 7; Glucose 147 mg/dL (65-110); Phosphorus 10.7 mg/dL (2.5-4.5); Potassium 3.8 mmol/L (3.4-5.0); Sodium 141 mmol/L (137-145)
[2024-07-14 07:41] LABS: Blood Urea Nitrogen 170 mg/dL (9-20)
[2024-07-14 07:59] LABS: Hemoglobin A1C 5.6 % (<5.7)
[2024-07-14] MEDS: HEPARIN SODIUM 5,000 UNITS/ML VIAL 5000 UNITS SUB-Q ×2 (09:12→20:09)
[2024-07-14] MEDS: ATORVASTATIN 20 MG TABLET FEED TUBE (09:12)
[2024-07-14] MEDS: amLODIPine BESYLATE 5 MG TABLET FEED TUBE (09:12)
[2024-07-14] MEDS: hydrALAZINE HCL 50 MG TABLET FEED TUBE ×3 (09:12→17:35)
--- NOTE | 2024-07-14 11:11 | P.PNNP_ITS ---
Progress Note: A&P Assessment and Plan (1) LINDSEY (acute kidney injury): Code(s): N17.9 - Acute kidney failure, unspecified Status: Acute Assessment and Plan: * as noted by markedly elevate BUN and creatinine (BUN 199 and creatinine 12.8) on admission * evaluation to date noted: * renal ultrasound with normal right kidney (unable to visualize bladder and left kidney) * rare urine eosinophils (difficult to interpret in context of possible UTI) * urine electrolytes non-prerenal * nephrotic range proteinuria noted * suspect LINDSEY multifactorial ATN: * volume depletion/dehydration * diuretic use prior to admission * urinary tract infection * possible progression of CKD * no critical electrolytes, severe metabolic acidosis, or volume overload to necessitate urgent 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 CHAIN 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/dialysis * however, despite all interventions to date, his renal function has not significantly improved * as per my discussion with case management, he is full code...hence, the next step is NOVEL[employer] CH[employer]KER/dialysis * I suppose it is possible that dialysis may be temporary but difficult to know since he had advanced kidney disease at baseline * consult Surgery for tunneled HD catheter placement * will initiated dialysis when catheter in place * follow trend of repeat labs and UOP (2) Chronic kidney disease, stage IV (severe): Code(s): N18.4 - Chronic kidney disease, stage 4 (severe) Status: Chronic Assessment and Plan: * baseline creatinine ~ 3.7 - 4.10mg/dl (based on last labs in Oct 2023) * due to a combo of diabetes, hypertension, and age-related change * cannot deny a possibility of CKD progression (3) Hypernatremia: Code(s): E87.0 - Hyperosmolality and hypernatremia Status: Resolved Assessment and Plan: * resolved * as noted on admission * presumably due to severe free water deficit due to lack of fluid intake (and likely volume depletion) * doubt diabetes insipidus (no evidence of polyuria) * on free water flushes with tube feedings * follow trend of repeat sodium levels (4) Acute UTI: Code(s): N39.0 - Urinary tract infection, site not specified Status: Acute Assessment and Plan: * admission UA highly suggestive * urine culture results noted * completed course of antibiotics (5) Hypertension: Code(s): I10 - Essential (primary) hypertension Status: Chronic Assessment and Plan: * reasonable control at this time * diuretics on hold due to #2 * follow trend of hemodyanmics (6) Anemia: Code(s): D64.9 - Anemia, unspecified Status: Acute Assessment and Plan: * noted drop in H/H by AM labs * suspect secondary to hemoconcentration from volume depletion * iron studies suggest chronic disease * PRBC transfusion per protocol * start JORGE once dialysis initiated * will dose SQ Retacrit x 2 doses for now * follow trend of H/H (7) Dementia: Code(s): F03.90 - Unspecified dementia, unspecified severity, without behavioral disturbance, psychotic disturbance, mood disturbance, and anxiety Status: Acute Assessment and Plan: * at baseline * continue supportive therapy (8) Insulin dependent diabetes mellitus: Status: Chronic Assessment and Plan: * follow accu-cheks * glycemic control per hospitalists Extensive discussion with care management/care coordination regarding the issues of his renal failure. He is a poor candidate for renal renal therapy/dialysis and I suspect it will not change his director long term care prognosis and may actually lead to more complications (i.e. infection, worsening anemia, vascular disease...etc); however, he is apparently a full code (and guardianship it still being finalized) so will proceed with dialysis initiation. Will continue to follow. Subjective Date/time seen: 07/14/24 11:11 Interval history: Follow-up for acute kidney injury/acute renal failure on chronic kidney disease. Renal function/creatinine still has not improved despite all conservative interventions to date; however, no critical electrolytes noted and continues to make reasonable urine output at this time; remains unresponsive/nonverbal/noncommunicative at the time of my visit. Exam Narrative: General: frail appearing male in NAD Heart: normal S1 and S2; no rub Lungs: clear anteriolry Abdomen: soft, nontender, nondistended, positive bowel sounds Extremities: no cyanosis or clubbing; no edema; contracted posture Skin: warm and intact Objective Data Vital Signs Vital Signs: Vital Signs Temp Pulse Resp BP Pulse Ox O2 Del Method 07/14/24 11:00 96.9 F L 114 H 14 143/59 H 100 07/14/24 08:00 63 07/14/24 08:00 Room Air 07/14/24 06:00 97.5 F L 101 H 22 H 100/77 100 07/14/24 04:00 60 07/14/24 00:00 97.9 F 70 16 122/82 100 07/14/24 00:00 75 07/13/24 20:18 97.6 F 69 18 118/83 96 Intake/Output Intake/Output: Intake & Output 07/11/24 07/12/24 07/13/24 07/14/24 23:59 23:59 23:59 23:59 Intake Total 1126.7 450 0 Output Total 1650 450 450 750 Balance -523.3 0 -450 -750 Meds/Results Medications: Active Medications Generic Name Dose Route Start Last Admin Trade Name Freq PRN Reason Stop Dose Admin Acetaminophen 650 mg 07/13/24 16:30 Acetaminophen 325 Mg Tablet FEED TUBE Q6H PRN Pain (Scale Score 1-3) Amlodipine Besylate 5 mg 07/13/24 09:00 07/14/24 09:12 Amlodipine Besylate 5 Mg Tablet FEED TUBE 5 mg DAILY URIAH Administration Atorvastatin Calcium 20 mg 07/13/24 09:00 07/14/24 09:12 Atorvastatin 20 Mg Tablet FEED TUBE 20 mg DAILY URIAH Administration Dextrose 12.5 gm 07/03/24 23:35 Dextrose 50% 25 Gm/50 Ml Syringe IV PUSH PRN PRN Hypoglycemia Protocol Glucagon 1 mg 07/03/24 23:35 Glucagon For Inj 1 Mg Vial IM PRN PRN Hypoglycemia Protocol Glucose 15 gm 07/03/24 23:35 Glucose Oral Gel 15 Gm Of Glucse In 37.5 Gm Tube PO PRN PRN Hypoglycemia Protocol Heparin Sodium (Porcine) 5,000 units 07/13/24 21:00 07/14/24 09:12 Heparin Sodium 5,000 Units/Ml Vial SUB-Q 5,000 units Q12HR URIAH Administration Hydralazine HCl 50 mg 07/13/24 09:00 07/14/24 12:10 Hydralazine Hcl 50 Mg Tablet FEED TUBE 50 mg TID URIAH Administration Dextrose 1,000 mls @ 100 mls/hr 07/03/24 23:35 Dextrose 5% 1,000 Ml IVPB PRN PRN Hypoglycemia Protocol Insulin Glargine 6 units 07/04/24 21:00 07/13/24 21:07 Insulin Glargine (*Bkc) 100 Units/Ml SUB-Q 6 units HS URIAH Administration Radiology Results: ITS Impressions Head CT 07/02/24 06:32 IMPRESSION: 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 Renal Ultrasound 07/02/24 11:50 IMPRESSION: 1. Normal right kidney. 2. Left kidney and bladder not evaluated. Abdomen X-Ray 07/06/24 16:36 IMPRESSION: 1. Normal bowel gas pattern. Modified Barium Swallow 07/07/24 15:06 IMPRESSION: Pharyngeal dysphagia with laryngeal penetration and aspiration with multiple consistencies. Please correlate with speech pathologist findings and specific feeding recommendations. Labs Labs: Laboratory Tests 07/14/24 06:38 07/14/24 06:38 Calcium 7.3 L Phosphorus 10.7 H
[2024-07-14 13:09] LABS: Glucose Point of Care 170 mg/dl (65-105)
--- NOTE | 2024-07-14 13:34 | PM.IMPN ---
Progress Note: A&P Assessment and Plan (1) Aspiration of food: Code(s): T17.928A - Food in respiratory tract, part unspecified causing other injury, initial encounter; W44.F3XA - Food entering into or through a natural orifice, initial encounter Status: Acute Assessment and Plan: Patient with poor p.o. intake: Suspecting dysphagia vs inadequate feeding Consulted speech therapy. MBS completed showing patient should be non-oral feeding. Patient did not allow NG placement so TPN started. GI consulted. G-tube planned as patient not safe to eat and no one to decide for next course of action GTube placed 07/12 and tolerated this well. TF started and tolerating. Narrow Gauge Brakeman assisting with TF. (2) Renal failure (ARF), acute on chronic: Code(s): N17.9 - Acute kidney failure, unspecified; N18.9 - Chronic kidney disease, unspecified Status: Acute Assessment and Plan: Patient CKD with Cr toward the end of his last hospitalization was 3.7-3.9 and stable for a few days. BUN was in the 60's. BUN 199 with Cr 12.8 on this admission. Suspect related to dehydration but Urine eos rare and Reymundo 80. FENa 8% with FEUrea 52% more consistent with ATN. Prot/Cr ratio 4.2gm c/w nephrotic range proteinuria as well. Renal US showing normal right kidney but left kidney and bladder unable to be visualized. LINDSEY probably related to poor oral intake, worsening CKD IV, diuretic therapy (Lasix and HCTZ that is TID), UTI Lan in place: Urine output decreased yesterday Renal function worse with Cr at 8.9 and BUN 170 Potassium normal and serum bicarb at 20 (AG 17) On TF and off IV fluids Monitor UOP, electrolytes and renal function. Management per insole and outsole splitter. HD being considered but he is high risk surgical candidate due to his AV dissociation. Phos 11.4. Phosphate binder per nephrology. Discussed. 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 Was on clonidine patch on admission which can slow conduction. Old EKG in September showing sinus rhythm with CHB and junctional escape rhythm. Cardiology note from [facility] reviewed: patient with asymptomatic AV dissociation. PM is indicated but they felt not clinically indicated given the patient's poor healthy. Has had this rhythm as far back as April 2023. EKG showing sinus rhythm with high degree AV block, Rt BBB and marked T wave changes in the anterolateral and inferior leads. He ws weaned off clonidine patch He was on Eliquis at the time of last discharge but not listed as home med now. Consider resuming closer to discharge. Monitor on tele (4) A-fib: Code(s): I48.91 - Unspecified atrial fibrillation Status: Acute Assessment and Plan: As above (5) Hypernatremia: Code(s): E87.0 - Hyperosmolality and hypernatremia Status: Resolved Assessment and Plan: Patient brought in for abnormal labs. Na was 163. Chloride 122. Clinically he appeared dehydrated. He takes oral intake and suspect he is not taking enough to sustain himself. He was started on 1/2NS and sodium dropped to 160. Changed to D5W and Na improved to 148 RN noted some coughing with feeding but no hypoxia. He was eating but speech therapy felt he was not safe to do so. Nephrology followed and managed sodium levels. Appreciate their input Sodium level is normal now. Resolved Follow (6) Chronic kidney disease, stage IV (severe): Code(s): N18.4 - Chronic kidney disease, stage 4 (severe) Status: Chronic Assessment and Plan: Patient with CKD, stage IV As above. (7) Acute UTI: Code(s): N39.0 - Urinary tract infection, site not specified Status: Acute Assessment and Plan: UA is consistent with UTI. UCx collected. Hx of ESBL EColi so Meropenem started. UCx growing proteus that is mostly pansensitive. Changed to Rocephin and he has since completed a coarse of treatment (8) Hypertension: Code(s): I10 - Essential (primary) hypertension Status: Chronic Assessment and Plan: Patient's blood pressure was reviewed on 07/14 Blood pressure much better controlled. May be too well controlled and causing increase in renal function. Continue Hydralazine but hold Norvasc (9) Insulin dependent diabetes mellitus: Status: Chronic Assessment and Plan: A1c 5.6%. Glucose reviewed on 07/14 Continue AccuCheks covering with sliding scale. Hypoglycemia protocol available as needed. Continue to monitor. Glucose 147 this morning. Continue Lantus low dose at night. (10) Anemia: Code(s): D64.9 - Anemia, unspecified Status: Acute Assessment and Plan: Hgb dropped to 6.4 from 8.9. No evidence of acute blood loss. Suspect related to IV fluids and that he was hemoconcentrated. Iron studies consistent with anemia of chronic disease probably related to his renal failure Transfused and Hgb better in the 7-8 range Follow and transfuse as needed. (11) Dementia: Code(s): F03.90 - Unspecified dementia, unspecified severity, without behavioral disturbance, psychotic disturbance, mood disturbance, and anxiety Status: Acute Assessment and Plan: Patient is nonverbal. Not on treatment for dementia. Follow Plan DVT prophylaxis - SCDs. heparin SQ Full code by default. Unclear who the guardian is. Investigation ongoing. Custody paperwork completed Subjective Date/time seen: 07/14/24 13:34 Interval history: 73yo male with dementia, CKD, DM, AFib and HTN here for worsening renal failure. Patient is nonverbal and unable to provide hx. Tolertaing TF at goal Review of Systems Review of Systems: ROS unobtainable: Yes unobtainable due to mental status Exam Narrative: AF 97.5 100/77 63 22 100% ra Gen - NARD Chest - clear anteriorly to quiet respirations. nml RR CV - irregular S1/S2. Abd - Soft, ND, GTube site clean and dry - Lan secured draining clear yellow urine. Ext - No pedal edema Neuro - Alert. non verbal. LE flexion contraction but able to extend LLE today Skin - Warm and dry. Objective Data Vital Signs Vital Signs: Vital Signs - 24 hr 07/13/24 14:00 07/13/24 15:22 07/13/24 16:00 Temperature 98.4 F Pulse Rate 97 66 Respiratory Rate 18 Blood Pressure 145/66 H Pulse Oximetry 100 Oxygen Delivery Room Air 07/13/24 16:00 07/13/24 20:18 07/14/24 00:00 Temperature 97.6 F Pulse Rate 68 69 75 Respiratory Rate 18 Blood Pressure 118/83 Pulse Oximetry 96 Oxygen Delivery 07/14/24 00:00 07/14/24 04:00 07/14/24 06:00 Temperature 97.9 F 97.5 F L Pulse Rate 70 60 101 H Respiratory Rate 16 22 H Blood Pressure 122/82 100/77 Pulse Oximetry 100 100 Oxygen Delivery 07/14/24 08:00 07/14/24 08:00 Temperature Pulse Rate 63 Respiratory Rate Blood Pressure Pulse Oximetry Oxygen Delivery Room Air Intake/Output Intake/Output: Intake & Output 07/11/24 07/12/24 07/13/24 07/14/24 23:59 23:59 23:59 23:59 Intake Total 1126.7 450 0 Output Total 1650 450 450 400 Balance -523.3 0 -450 -400 Meds/Results Medications: Active Medications Generic Name Dose Route Start Last Admin Trade Name Freq PRN Reason Stop Dose Admin Acetaminophen 650 mg 07/13/24 16:30 Acetaminophen 325 Mg Tablet FEED TUBE Q6H PRN Pain (Scale Score 1-3) Amlodipine Besylate 5 mg 07/13/24 09:00 07/14/24 09:12 Amlodipine Besylate 5 Mg Tablet FEED TUBE 5 mg DAILY URIAH Administration Atorvastatin Calcium 20 mg 07/13/24 09:00 07/14/24 09:12 Atorvastatin 20 Mg Tablet FEED TUBE 20 mg DAILY URIAH Administration Dextrose 12.5 gm 07/03/24 23:35 Dextrose 50% 25 Gm/50 Ml Syringe IV PUSH PRN PRN Hypoglycemia Protocol Glucagon 1 mg 07/03/24 23:35 Glucagon For Inj 1 Mg Vial IM PRN PRN Hypoglycemia Protocol Glucose 15 gm 07/03/24 23:35 Glucose Oral Gel 15 Gm Of Glucse In 37.5 Gm Tube PO PRN PRN Hypoglycemia Protocol Heparin Sodium (Porcine) 5,000 units 07/13/24 21:00 07/14/24 09:12 Heparin Sodium 5,000 Units/Ml Vial SUB-Q 5,000 units Q12HR URIAH Administration Hydralazine HCl 50 mg 07/13/24 09:00 07/14/24 12:10 Hydralazine Hcl 50 Mg Tablet FEED TUBE 50 mg TID URIAH Administration Dextrose 1,000 mls @ 100 mls/hr 07/03/24 23:35 Dextrose 5% 1,000 Ml IVPB PRN PRN Hypoglycemia Protocol Insulin Glargine 6 units 07/04/24 21:00 07/13/24 21:07 Insulin Glargine (*Bkc) 100 Units/Ml SUB-Q 6 units HS URIAH Administration Radiology Results: ITS Impressions Head CT 07/02/24 06:32 IMPRESSION: 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 Renal Ultrasound 07/02/24 11:50 IMPRESSION: 1. Normal right kidney. 2. Left kidney and bladder not evaluated. Abdomen X-Ray 07/06/24 16:36 IMPRESSION: 1. Normal bowel gas pattern. Modified Barium Swallow 07/07/24 15:06 IMPRESSION: Pharyngeal dysphagia with laryngeal penetration and aspiration with multiple consistencies. Please correlate with speech pathologist findings and specific feeding recommendations. Labs Labs: Laboratory Results - last 24 hr 07/13/24 07/14/24 07/14/24 18:15 00:11 06:38 WBC 8.3 RBC 2.56 L Hgb 7.6 L Hct 23.9 L MCV 93.4 MCH 29.7 MCHC 31.8 L RDW 13.2 Plt Count 203 MPV 13.2 H % Immature Plt Fraction 6.2 Sodium 141 Potassium 3.8 Chloride 104 Carbon Dioxide 20 L Anion Gap 17 H BUN 170 H D Creatinine 8.90 H Estim Creat Clear Calc 6 Estimated GFR 7 L Glucose 147 H POC Capillary Glucose 158 H 169 H Hemoglobin A1c 5.6 Calcium 7.3 L Phosphorus 10.7 H 07/14/24 13:06 WBC RBC Hgb Hct MCV MCH MCHC RDW Plt Count MPV % Immature Plt Fraction Sodium Potassium Chloride Carbon Dioxide Anion Gap BUN Creatinine Estim Creat Clear Calc Estimated GFR Glucose POC Capillary Glucose 170 H Hemoglobin A1c Calcium Phosphorus
[2024-07-14 17:13] LABS: Glucose Point of Care 204 mg/dl (65-105)
[2024-07-14] MEDS: SEVELAMER CARBONATE 800 MG TABLET PO (17:35)
[2024-07-14] MEDS: INSULIN GLARGINE (*BKC) 100 UNITS/ML 6 UNITS SUB-Q (20:09)
[2024-07-15] VITALS (9 sets, daily range): BP systolic 140–151; BP diastolic 46–78; PULSE 67–77; RESP 13–20; TEMP 37–37.1; O2SAT 92–100
[2024-07-15] LABS: Glucose Point of Care 218 mg/dl (65-105)
[2024-07-15 05:23] LABS: Glucose Point of Care 157 mg/dl (65-105)
[2024-07-15 07:31] LABS: Basophils Percent Auto 0.2 % (0.2-1.2); Eosinophils Absolute Auto 0.1 K/mm3 (0-0.3); Eosinophils Percent Auto 1.3 % (0-4.4); Hematocrit 22.8 % (42.0-52.0); Hemoglobin 7.2 g/dL (14.0-18.0); Immature Granulocyte Absolute 0.04 K/mm3 (0.00-0.031); Immature Granulocyte Percent A 0.5 % (0-0.5); Lymphocytes Absolute Auto 1.07 K/mm3 (0.9-3.2); Lymphocytes Percent Auto 12.4 % (18.3-44.2); Mean Corpuscular HGB Conc 31.6 g/dl (32-36); Mean Corpuscular Hemoglobin 29.5 pg (26-34); Mean Corpuscular Volume 93.4 fl (80-100); Monocytes Absolute Auto 0.7 K/mm3 (0.1-0.6); Monocytes Percent Auto 7.9 % (2.6-8.5); Neutrophils Absolute Auto 6.7 K/mm3 (1.3-6.7); Neutrophils Percent Auto 77.7 % (45.5-73.1); Platelet Count Result 216 k/mm3 (150-375); Red Blood Count 2.44 M/mm3 (4.6-6.20); Red Cell Distribution Width 13.2 % (11.5-14.5); White Blood Count 8.6 K/mm3 (4.5-10.0)
[2024-07-15 07:43] LABS: Albumin Level 2.9 g/dL (3.5-5.1); Anion Gap 18 mmol/L (4-12); Calcium 7.6 mg/dL (8.4-10.2); Carbon Dioxide 21 mmol/L (22-30); Chloride 103 mmol/L (98-107); Estimated CRCL calculation 6 ml/min; Estimated Glomerular Filt Rate 7; Glucose 154 mg/dL (65-110); Magnesium 1.8 mg/dL (1.6-2.3); Phosphorus 9.4 mg/dL (2.5-4.5); Potassium 3.7 mmol/L (3.4-5.0); Sodium 142 mmol/L (137-145)
[2024-07-15 07:57] LABS: Blood Urea Nitrogen 181 mg/dL (9-20)
--- NOTE | 2024-07-15 08:13 | PC.NURSE ---
Students and instructor to pass medication to patient today. Assessment completed. No signs of pain or discomfort. Patient shook his head no when asked if he needed anything. Patient resting comfortably.
[2024-07-15] MEDS: hydrALAZINE HCL 50 MG TABLET FEED TUBE ×3 (08:19→18:22)
[2024-07-15] MEDS: SEVELAMER CARBONATE 800 MG TABLET FEED TUBE ×3 (08:19→18:23)
[2024-07-15] MEDS: HEPARIN SODIUM 5,000 UNITS/ML VIAL 5000 UNITS SUB-Q ×2 (08:19→21:59)
[2024-07-15] MEDS: ATORVASTATIN 20 MG TABLET FEED TUBE (08:20)
--- NOTE | 2024-07-15 10:50 | P.CONGS_ITS ---
Assessment and Plan Assessment and plan (1) Acute kidney injury superimposed on CKD: Code(s): N17.9 - Acute kidney failure, unspecified; N18.9 - Chronic kidney disease, unspecified Status: Acute Assessment and Plan: Worsening renal failure, if patient continues to be full code will need access for hemodialysis, given his other medical issues would likely need to be done in the operating room, continue to investigate surrogate decision maker for now, will likely proceed with tunneled hemodialysis catheter in the operating room early next week if no further decision is made History of Present Illness Consult details Consult date: 07/15/24 Reason for consult: other (Hemodialysis access) Requesting physician: Shayna Bright MD Narrative: The patient is a 73-year-old male with multiple medical issues who is largely nonverbal and nonresponsive with worsening renal disease necessitating hemodialysis. Of note, all history is obtained via the chart. The patient apparently does not have any family members and currently there is an investigation for a surrogate. This time, the patient continues to be a full code. The patient did have a PEG tube placed recently for feeding. He continues to have worsening renal failure and will likely need hemodialysis in the near future if he continues to be a full code. Review of Systems Review of Systems: ROS unobtainable: Yes unobtainable due to medical condition and unobtainable due to mental status PMFSH Past Medical History Medical History A-fib Anorexia Aspiration of food Dementia Hypertension Insulin dependent diabetes mellitus Family History Family History Other Unknown family medical history Social History Social History Smoking status: Unknown if ever smoked Second hand tobacco smoke exposure: No Alcohol intake: unknown Substance use: unknown Substance use type: unknown Spiritual care concerns: No Meds Home Medications and Allergies Home Medications Medication Instructions Recorded Confirmed Type atorvastatin 20 mg tablet 20 mg PO DAILY 04/28/23 07/02/24 History clonidine 0.3 mg/24 hr weekly 0.3 mg transdermal DAILY 04/28/23 07/02/24 History transdermal patch glucagon 1 mg solution for 1 mg IM PRN PRN Hypoglycemia 04/28/23 07/02/24 History injection (Glucagon Emergency Kit) hydrochlorothiazide 25 mg tablet 25 mg PO TID 04/28/23 07/02/24 History hydralazine 50 mg tablet 100 mg PO TID #90 tabs 05/02/23 07/02/24 Rx acetaminophen 325 mg tablet 650 mg PO Q6H PRN Pain (Scale 10/02/23 07/02/24 History Score 1-3) ferrous sulfate 325 mg (65 mg 325 mg PO BID 10/02/23 07/02/24 History iron) tablet dextrose 40 % oral gel (Glutose-15) 15 g PO PRN PRN Hypoglycemia #10 10/10/23 07/02/24 Rx grams ascorbic acid (vitamin C) 1,000 mg 1 g PO DAILY 07/02/24 07/02/24 History tablet docosahexaenoic acid (dha)-epa 120 1 cap PO DAILY 07/02/24 07/02/24 History mg-180 mg capsule furosemide 20 mg tablet 20 mg PO DAILY 07/02/24 07/02/24 History insulin glargine-yfgn 100 unit/mL 40 unit subcut HS 07/02/24 07/02/24 History (3 mL) subcutaneous pen insulin regular human 100 unit/mL sliding scale dose subcut ACHS 07/02/24 History injection solution (Humulin R Regular U-100 Insulin) Allergies Allergy/AdvReac Type Severity Reaction Status Date / Time No Known Allergies Allergy Verified 07/02/24 09:05 Vital Signs Vital Signs - 24 hr 07/14/24 13:45 07/14/24 12:00 07/14/24 16:00 Temperature 36.1 C L Pulse Rate 114 H 65 73 Respiratory Rate 14 Blood Pressure 143/59 H Pulse Oximetry 100 Oxygen Delivery 07/14/24 20:00 07/14/24 20:00 07/14/24 21:26 Temperature 36.1 C L Pulse Rate 64 68 Respiratory Rate 14 Blood Pressure 116/54 L Pulse Oximetry 99 Oxygen Delivery Room Air 07/15/24 00:00 07/15/24 04:00 07/15/24 05:39 Temperature 37.0 C Pulse Rate 67 69 75 Respiratory Rate 13 Blood Pressure 143/46 H Pulse Oximetry 92 Oxygen Delivery 07/15/24 08:15 Temperature Pulse Rate 77 Respiratory Rate Blood Pressure Pulse Oximetry Oxygen Delivery Exam Const: General: ill appearing, patient obtunded and cachectic HENMT: Head: normal to inspection Eyes: General: appearance normal, both eyes and all related structures Neck: Neck: normal visual inspection and no lymphadenopathy Chest: Chest palpation & inspection: normal inspection of the chest Resp: Effort & Inspection: decreased respiratory effort Auscultation: diminished lung sounds Cardio: Rate: regular rate Rhythm: abnormal rhythm GI: Inspection: normal to inspection Other: PEG - C/D/I Urinary Catheter: Urinary Catheter: patent and draining Skin: General skin exam: normal color and no rashes or lesions noted Neuro: General: patient obtunded Extrem: General: normal to inspection Results Labs 07/15/24 07:06 07/15/24 07:06 Labs: Abnormal lab results 07/14/24 07/14/24 07/14/24 Range/Units 13:06 17:09 20:07 RBC (4.6-6.20) M/mm3 Hgb (14.0-18.0) g/dL Hct (42.0-52.0) % MCHC (32-36) g/dl MPV (7.4-10.4) fl Neut % (Auto) (45.5-73.1) % Lymph % (Auto) (18.3-44.2) % Evangeline # (Auto) (0.1-0.6) K/mm3 Abs Immat Gran (auto) (0.00-0.031) K/mm3 Carbon Dioxide (22-30) mmol/L Anion Gap (4-12) mmol/L BUN (9-20) mg/dL Creatinine (0.7-1.3) mg/dL Estimated GFR (59 - ) Glucose (65-110) mg/dL POC Capillary Glucose 170 H 204 H 218 H (65-105) mg/dl Calcium (8.4-10.2) mg/dL Phosphorus (2.5-4.5) mg/dL Albumin (3.5-5.1) g/dL 07/15/24 07/15/24 Range/Units 05:19 07:06 RBC 2.44 L (4.6-6.20) M/mm3 Hgb 7.2 L (14.0-18.0) g/dL Hct 22.8 L (42.0-52.0) % MCHC 31.6 L (32-36) g/dl MPV 13.0 H (7.4-10.4) fl Neut % (Auto) 77.7 H (45.5-73.1) % Lymph % (Auto) 12.4 L (18.3-44.2) % Evangeline # (Auto) 0.7 H (0.1-0.6) K/mm3 Abs Immat Gran (auto) 0.04 H (0.00-0.031) K/mm3 Carbon Dioxide 21 L (22-30) mmol/L Anion Gap 18 H (4-12) mmol/L BUN 181 H D (9-20) mg/dL Creatinine 9.10 H (0.7-1.3) mg/dL Estimated GFR 7 L (59 - ) Glucose 154 H (65-110) mg/dL POC Capillary Glucose 157 H (65-105) mg/dl Calcium 7.6 L (8.4-10.2) mg/dL Phosphorus 9.4 H (2.5-4.5) mg/dL Albumin 2.9 L (3.5-5.1) g/dL Diabetes panel 07/15/24 Range/Units 07:06 Sodium 142 (137-145) mmol/L Potassium 3.7 (3.4-5.0) mmol/L Chloride 103 (98-107) mmol/L Carbon Dioxide 21 L (22-30) mmol/L BUN 181 H D (9-20) mg/dL Creatinine 9.10 H (0.7-1.3) mg/dL Glucose 154 H (65-110) mg/dL Calcium 7.6 L (8.4-10.2) mg/dL Albumin 2.9 L (3.5-5.1) g/dL Calcium panel 07/15/24 Range/Units 07:06 Calcium 7.6 L (8.4-10.2) mg/dL Phosphorus 9.4 H (2.5-4.5) mg/dL Albumin 2.9 L (3.5-5.1) g/dL Pituitary panel 07/15/24 Range/Units 07:06 Sodium 142 (137-145) mmol/L Potassium 3.7 (3.4-5.0) mmol/L Chloride 103 (98-107) mmol/L Carbon Dioxide 21 L (22-30) mmol/L BUN 181 H D (9-20) mg/dL Creatinine 9.10 H (0.7-1.3) mg/dL Glucose 154 H (65-110) mg/dL Calcium 7.6 L (8.4-10.2) mg/dL Adrenal panel 07/15/24 Range/Units 07:06 Sodium 142 (137-145) mmol/L Potassium 3.7 (3.4-5.0) mmol/L Chloride 103 (98-107) mmol/L Carbon Dioxide 21 L (22-30) mmol/L BUN 181 H D (9-20) mg/dL Creatinine 9.10 H (0.7-1.3) mg/dL Glucose 154 H (65-110) mg/dL Calcium 7.6 L (8.4-10.2) mg/dL Albumin 2.9 L (3.5-5.1) g/dL All other labs normal.
--- NOTE | 2024-07-15 10:53 | P.PNIM_ITS ---
Progress Note: A&P Assessment and Plan (1) Renal failure (ARF), acute on chronic: Code(s): N17.9 - Acute kidney failure, unspecified; N18.9 - Chronic kidney disease, unspecified Status: Acute Assessment and Plan: Patient has known CKD with Cr toward the end of his last hospitalization being 3.7-3.9 and stable for a few days. BUN was in the 60's. BUN 199 with Cr 12.8 on this admission. Suspect related to dehydration but Urine eos rare and Reymundo 80. FENa 8% with FEUrea 52% more consistent with ATN. Prot/Cr ratio 4.2gm c/w nephrotic range proteinuria as well. Renal US showing normal right kidney but left kidney and bladder unable to be visualized. LINDSEY probably related to poor oral intake, worsening CKD IV, diuretic therapy (Lasix and HCTZ that was TID), UTI. Renal function worse with Cr at 9.1 and BUN 181 Potassium normal and serum bicarb at 21 (AG 18) Lan in place: Urine output is decreasing 1150->450->450->750->150mL so far today On TF and off IV fluids Monitor UOP, electrolytes and renal function. Management per customer service analyst. HD being considered for next week but he is high risk surgical candidate due to his AV dissociation. Appreciate GenSurg input. Phosphate binder added per nephrology. (2) Aspiration of food: Code(s): T17.928A - Food in respiratory tract, part unspecified causing other injury, initial encounter; W44.F3XA - Food entering into or through a natural orifice, initial encounter Status: Acute Assessment and Plan: Patient with poor oral intake related to dysphagia and/or inadequate feeding. Consulted speech therapy. MBS completed showing patient should be non-oral feeding. Patient did not allow NG placement so TPN started. GI consulted. G-tube planned as it was not safe for patient to eat. No guardian/POA to decide next course of action so decided to proceed with GTube placement that was done 07/12, He tolerated this well. TF started and tolerating at goal. Christian Education Director assisting with TF. 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 Was on clonidine patch on admission which can slow conduction. Old EKG in September showing sinus rhythm with CHB and junctional escape rhythm. Cardiology note from Sep reviewed: patient with asymptomatic AV dissociation. PM is indicated but they felt not clinically indicated given the patient's poor healthy. Has had this rhythm as far back as April 2023. EKG showing sinus rhythm with high degree AV block, Rt BBB and marked T wave changes in the anterolateral and inferior leads. He was weaned off clonidine patch. He was on Eliquis at the time of last discharge but not listed as home med now. Consider resuming closer to discharge. Monitor on tele (4) A-fib: Code(s): I48.91 - Unspecified atrial fibrillation Status: Acute Assessment and Plan: As above (5) Hypernatremia: Code(s): E87.0 - Hyperosmolality and hypernatremia Status: Resolved Assessment and Plan: Patient brought in for abnormal labs. Na was 163. Chloride 122. Clinically he appeared dehydrated. He takes oral intake and suspect he is not taking enough to sustain himself. He was started on 1/2NS and sodium dropped to 160. Changed to D5W and Na improved to 148 RN noted some coughing with feeding but no hypoxia. He was eating but speech therapy felt he was not safe to do so. Nephrology followed and managed sodium levels. Appreciate their input Sodium level is normal now. Resolved Follow (6) Chronic kidney disease, stage IV (severe): Code(s): N18.4 - Chronic kidney disease, stage 4 (severe) Status: Chronic Assessment and Plan: Patient with CKD, stage IV As above. (7) Acute UTI: Code(s): N39.0 - Urinary tract infection, site not specified Status: Acute Assessment and Plan: UA is consistent with UTI. UCx collected. Hx of ESBL EColi so Meropenem started. UCx growing proteus that is mostly pansensitive. Changed to Rocephin and he has since completed a coarse of treatment (8) Hypertension: Code(s): I10 - Essential (primary) hypertension Status: Chronic Assessment and Plan: Patient's blood pressure was reviewed on 07/15 BP was too well controlled and possibly causing worsening renal function so Norvasc stopped. Blood pressure much better controlled. Continue Hydralazine only (9) Insulin dependent diabetes mellitus: Status: Chronic Assessment and Plan: A1c 5.6%. Glucose reviewed on 07/15 Continue AccuCheks covering with sliding scale. Hypoglycemia protocol available as needed. Continue to monitor. Glucose 154 this morning. Continue Lantus low dose at night. (10) Anemia: Code(s): D64.9 - Anemia, unspecified Status: Acute Assessment and Plan: Hgb dropped to 6.4 from 8.9. No evidence of acute blood loss. Suspect related to IV fluids and that he was hemoconcentrated. Iron studies consistent with anemia of chronic disease probably related to his renal failure Transfused and Hgb better in the 7-8 range Follow and transfuse as needed. (11) Dementia: Code(s): F03.90 - Unspecified dementia, unspecified severity, without behavioral disturbance, psychotic disturbance, mood disturbance, and anxiety Status: Acute Assessment and Plan: Patient is nonverbal. Not on treatment for dementia. Follow Plan DVT prophylaxis - SCDs. heparin SQ Full code by default. Unclear who the guardian is. Investigation ongoing. Custody paperwork completed Subjective Date/time seen: 07/15/24 10:53 Interval history: 73yo male with dementia, CKD, DM, AFib and HTN here for worsening renal failure. Patient is nonverbal and unable to provide hx. Tolerating TF. Review of Systems Review of Systems: ROS unobtainable: Yes unobtainable due to mental status Exam Narrative: AF 98.6 143/46 77 13 92% ra Gen - NARD Chest - clear anteriorly to quiet respirations. nml RR CV - RRR S1/S2. Abd - Soft, ND, binder in place - Lan secured draining clear yellow urine. Ext - No pedal edema Neuro - Alert. non verbal. Skin - Warm and dry. Objective Data Vital Signs Vital Signs: Vital Signs - 24 hr 07/14/24 13:45 07/14/24 12:00 07/14/24 16:00 Temperature 96.9 F L Pulse Rate 114 H 65 73 Respiratory Rate 14 Blood Pressure 143/59 H Pulse Oximetry 100 Oxygen Delivery 07/14/24 20:00 07/14/24 20:00 07/14/24 21:26 Temperature 97.0 F L Pulse Rate 64 68 Respiratory Rate 14 Blood Pressure 116/54 L Pulse Oximetry 99 Oxygen Delivery Room Air 07/15/24 00:00 07/15/24 04:00 07/15/24 05:39 Temperature 98.6 F Pulse Rate 67 69 75 Respiratory Rate 13 Blood Pressure 143/46 H Pulse Oximetry 92 Oxygen Delivery 07/15/24 08:15 Temperature Pulse Rate 77 Respiratory Rate Blood Pressure Pulse Oximetry Oxygen Delivery Intake/Output Intake/Output: Intake & Output 07/12/24 07/13/24 07/14/24 07/15/24 23:59 23:59 23:59 23:59 Intake Total 450 0 686 Output Total 450 450 750 150 Balance 0 -450 -750 536 Meds/Results Medications: Active Medications Generic Name Dose Route Start Last Admin Trade Name Freq PRN Reason Stop Dose Admin Acetaminophen 650 mg 07/13/24 16:30 Acetaminophen 325 Mg Tablet FEED TUBE Q6H PRN Pain (Scale Score 1-3) Atorvastatin Calcium 20 mg 07/13/24 09:00 07/15/24 08:20 Atorvastatin 20 Mg Tablet FEED TUBE 20 mg DAILY URIAH Administration Dextrose 12.5 gm 07/03/24 23:35 Dextrose 50% 25 Gm/50 Ml Syringe IV PUSH PRN PRN Hypoglycemia Protocol Epoetin Bill-epbx 10,000 units 07/16/24 09:00 Epoetin Bill-Epbx 10,000 Units/Ml Vial SUB-Q 07/16/24 09:01 ONCE ONE Glucagon 1 mg 07/03/24 23:35 Glucagon For Inj 1 Mg Vial IM PRN PRN Hypoglycemia Protocol Glucose 15 gm 07/03/24 23:35 Glucose Oral Gel 15 Gm Of Glucse In 37.5 Gm Tube PO PRN PRN Hypoglycemia Protocol Heparin Sodium (Porcine) 5,000 units 07/13/24 21:00 07/15/24 08:19 Heparin Sodium 5,000 Units/Ml Vial SUB-Q 5,000 units Q12HR URIAH Administration Hydralazine HCl 50 mg 07/13/24 09:00 07/15/24 08:19 Hydralazine Hcl 50 Mg Tablet FEED TUBE 50 mg TID URIAH Administration Dextrose 1,000 mls @ 100 mls/hr 07/03/24 23:35 Dextrose 5% 1,000 Ml IVPB PRN PRN Hypoglycemia Protocol Insulin Glargine 6 units 07/04/24 21:00 07/14/24 20:09 Insulin Glargine (*Bkc) 100 Units/Ml SUB-Q 6 units HS URIAH Administration Sevelamer Carbonate 800 mg 07/15/24 08:00 07/15/24 08:19 Sevelamer Carbonate 800 Mg Tablet FEED TUBE 800 mg TIDWM URIAH Administration Radiology Results: ITS Impressions Head CT 07/02/24 06:32 IMPRESSION: 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 Renal Ultrasound 07/02/24 11:50 IMPRESSION: 1. Normal right kidney. 2. Left kidney and bladder not evaluated. Abdomen X-Ray 07/06/24 16:36 IMPRESSION: 1. Normal bowel gas pattern. Modified Barium Swallow 07/07/24 15:06 IMPRESSION: Pharyngeal dysphagia with laryngeal penetration and aspiration with multiple consistencies. Please correlate with speech pathologist findings and specific feeding recommendations. Labs Labs: Laboratory Results - last 24 hr 07/14/24 07/14/24 07/14/24 13:06 17:09 20:07 WBC RBC Hgb Hct MCV MCH MCHC RDW Plt Count MPV Immature Gran % (Auto) Neut % (Auto) Lymph % (Auto) [place] % (Auto) Eos % (Auto) Baso % (Auto) Lymph # (Auto) [place] # (Auto) Eos # (Auto) Baso # (Auto) Abs Immat Gran (auto) Absolute Neuts (auto) Absolute Nucleated RBC Nucleated RBC % Sodium Potassium Chloride Carbon Dioxide Anion Gap BUN Creatinine Estim Creat Clear Calc Estimated GFR Glucose POC Capillary Glucose 170 H 204 H 218 H Calcium Phosphorus Magnesium Albumin 07/15/24 07/15/24 05:19 07:06 WBC 8.6 RBC 2.44 L Hgb 7.2 L Hct 22.8 L MCV 93.4 MCH 29.5 MCHC 31.6 L RDW 13.2 Plt Count 216 MPV 13.0 H Immature Gran % (Auto) 0.5 Neut % (Auto) 77.7 H Lymph % (Auto) 12.4 L [place] % (Auto) 7.9 Eos % (Auto) 1.3 Baso % (Auto) 0.2 Lymph # (Auto) 1.07 [place] # (Auto) 0.7 H Eos # (Auto) 0.1 Baso # (Auto) 0.0 Abs Immat Gran (auto) 0.04 H Absolute Neuts (auto) 6.7 Absolute Nucleated RBC 0.000 Nucleated RBC % 0.0 Sodium 142 Potassium 3.7 Chloride 103 Carbon Dioxide 21 L Anion Gap 18 H BUN 181 H D Creatinine 9.10 H Estim Creat Clear Calc 6 Estimated GFR 7 L Glucose 154 H POC Capillary Glucose 157 H Calcium 7.6 L Phosphorus 9.4 H Magnesium 1.8 Albumin 2.9 L
[2024-07-15] MEDS: EPOETIN ALFA-EPBX 20,000 UNITS/ML VIAL 20000 UNITS SUB-Q (11:48)
--- NOTE | 2024-07-15 12:33 | PC.NURSE ---
Patient resting comfortably. Student left at noon. Tube feeding patent running at 40mL.
--- NOTE | 2024-07-15 12:44 | P.PNNP_ITS ---
Progress Note: A&P Assessment and Plan (1) LINDSEY (acute kidney injury): Code(s): N17.9 - Acute kidney failure, unspecified Status: Acute Assessment and Plan: * as noted by markedly elevate BUN and creatinine (BUN 199 and creatinine 12.8) on admission * evaluation to date noted: * renal ultrasound with normal right kidney (unable to visualize bladder and left kidney) * rare urine eosinophils (difficult to interpret in context of possible UTI) * urine electrolytes non-prerenal * nephrotic range proteinuria noted * suspect LINDSEY multifactorial ATN: * volume depletion/dehydration * diuretic use prior to admission * urinary tract infection * possible progression of CKD * no critical electrolytes, severe metabolic acidosis, or volume overload to necessitate urgent EXPERIMENTAL [employer]FL[employer] MECH[employer]IC/dialysis * Surgery consulted for a tunneled dialysis catheter * follow trend of repeat labs and UOP (2) Chronic kidney disease, stage IV (severe): Code(s): N18.4 - Chronic kidney disease, stage 4 (severe) Status: Chronic Assessment and Plan: * baseline creatinine ~ 3.7 - 4.10mg/dl (based on last labs in Oct 2023) * due to a combo of diabetes, hypertension, and age-related change * cannot deny a possibility of CKD progression (3) Hypernatremia: Code(s): E87.0 - Hyperosmolality and hypernatremia Status: Resolved Assessment and Plan: * resolved * as noted on admission * presumably due to severe free water deficit due to lack of fluid intake (and likely volume depletion) * doubt diabetes insipidus (no evidence of polyuria) * on free water flushes with tube feedings * Sodium level is now down to normal (4) Acute UTI: Code(s): N39.0 - Urinary tract infection, site not specified Status: Acute Assessment and Plan: * admission UA highly suggestive * urine culture results noted * completed course of antibiotics (5) Hypertension: Code(s): I10 - Essential (primary) hypertension Status: Chronic Assessment and Plan: * Blood pressure 100s to 140s * diuretics on hold due to #2 (6) Anemia: Code(s): D64.9 - Anemia, unspecified Status: Acute Assessment and Plan: * noted drop in H/H by AM labs * suspect secondary to hemoconcentration from volume depletion * iron studies suggest chronic disease * Hemoglobin 7.2. He is on Epogen (7) Dementia: Code(s): F03.90 - Unspecified dementia, unspecified severity, without behavioral disturbance, psychotic disturbance, mood disturbance, and anxiety Status: Acute Assessment and Plan: * at baseline * continue supportive therapy (8) Insulin dependent diabetes mellitus: Status: Chronic Assessment and Plan: * follow accu-cheks * glycemic control per hospitalists Subjective Date/time seen: 07/15/24 12:44 Interval history: Patient looks comfortable. Regards the exam Not interactive, otherwise. Exam Narrative: General: frail appearing male in NAD Heart: normal S1 and S2; no rub or gallop Lungs: clear anteriolry Abdomen: soft, nontender, nondistended, positive bowel sounds Extremities: no cyanosis or clubbing; no edema; contracted posture Skin: No rash Objective Data Vital Signs Vital Signs: Vital Signs - 24 hr 07/14/24 13:45 07/14/24 16:00 07/14/24 20:00 Temperature 96.9 F L Pulse Rate 114 H 73 Respiratory Rate 14 Blood Pressure 143/59 H Pulse Oximetry 100 Oxygen Delivery Room Air 07/14/24 20:00 07/14/24 21:26 07/15/24 00:00 Temperature 97.0 F L Pulse Rate 64 68 67 Respiratory Rate 14 Blood Pressure 116/54 L Pulse Oximetry 99 Oxygen Delivery 07/15/24 04:00 07/15/24 05:39 07/15/24 08:15 Temperature 98.6 F Pulse Rate 69 75 77 Respiratory Rate 13 Blood Pressure 143/46 H Pulse Oximetry 92 Oxygen Delivery 07/15/24 12:00 Temperature Pulse Rate 67 Respiratory Rate Blood Pressure Pulse Oximetry Oxygen Delivery Intake/Output Intake/Output: Intake & Output 07/12/24 07/13/24 07/14/24 07/15/24 23:59 23:59 23:59 23:59 Intake Total 450 0 686 Output Total 450 450 750 150 Balance 0 -450 -750 536 Meds/Results Medications: Active Medications Generic Name Dose Route Start Last Admin Trade Name Freq PRN Reason Stop Dose Admin Acetaminophen 650 mg 07/13/24 16:30 Acetaminophen 325 Mg Tablet FEED TUBE Q6H PRN Pain (Scale Score 1-3) Atorvastatin Calcium 20 mg 07/13/24 09:00 07/15/24 08:20 Atorvastatin 20 Mg Tablet FEED TUBE 20 mg DAILY URIAH Administration Dextrose 12.5 gm 07/03/24 23:35 Dextrose 50% 25 Gm/50 Ml Syringe IV PUSH PRN PRN Hypoglycemia Protocol Epoetin Bill-epbx 10,000 units 07/16/24 09:00 Epoetin Bill-Epbx 10,000 Units/Ml Vial SUB-Q 07/16/24 09:01 ONCE ONE Glucagon 1 mg 07/03/24 23:35 Glucagon For Inj 1 Mg Vial IM PRN PRN Hypoglycemia Protocol Glucose 15 gm 07/03/24 23:35 Glucose Oral Gel 15 Gm Of Glucse In 37.5 Gm Tube PO PRN PRN Hypoglycemia Protocol Heparin Sodium (Porcine) 5,000 units 07/13/24 21:00 07/15/24 08:19 Heparin Sodium 5,000 Units/Ml Vial SUB-Q 5,000 units Q12HR URIAH Administration Hydralazine HCl 50 mg 07/13/24 09:00 07/15/24 11:48 Hydralazine Hcl 50 Mg Tablet FEED TUBE 50 mg TID URIAH Administration Dextrose 1,000 mls @ 100 mls/hr 07/03/24 23:35 Dextrose 5% 1,000 Ml IVPB PRN PRN Hypoglycemia Protocol Insulin Glargine 6 units 07/04/24 21:00 07/14/24 20:09 Insulin Glargine (*Bkc) 100 Units/Ml SUB-Q 6 units HS URIAH Administration Sevelamer Carbonate 800 mg 07/15/24 08:00 07/15/24 11:48 Sevelamer Carbonate 800 Mg Tablet FEED TUBE 800 mg TIDWM URIAH Administration Radiology Results: ITS Impressions Head CT 07/02/24 06:32 IMPRESSION: 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 Renal Ultrasound 07/02/24 11:50 IMPRESSION: 1. Normal right kidney. 2. Left kidney and bladder not evaluated. Abdomen X-Ray 07/06/24 16:36 IMPRESSION: 1. Normal bowel gas pattern. Modified Barium Swallow 07/07/24 15:06 IMPRESSION: Pharyngeal dysphagia with laryngeal penetration and aspiration with multiple consistencies. Please correlate with speech pathologist findings and specific feeding recommendations. Labs Labs: Laboratory Results - last 24 hr 07/14/24 07/14/24 07/14/24 13:06 17:09 20:07 WBC RBC Hgb Hct MCV MCH MCHC RDW Plt Count MPV Immature Gran % (Auto) Neut % (Auto) Lymph % (Auto) [place] % (Auto) Eos % (Auto) Baso % (Auto) Lymph # (Auto) [place] # (Auto) Eos # (Auto) Baso # (Auto) Abs Immat Gran (auto) Absolute Neuts (auto) Absolute Nucleated RBC Nucleated RBC % Sodium Potassium Chloride Carbon Dioxide Anion Gap BUN Creatinine Estim Creat Clear Calc Estimated GFR Glucose POC Capillary Glucose 170 H 204 H 218 H Calcium Phosphorus Magnesium Albumin 07/15/24 07/15/24 05:19 07:06 WBC 8.6 RBC 2.44 L Hgb 7.2 L Hct 22.8 L MCV 93.4 MCH 29.5 MCHC 31.6 L RDW 13.2 Plt Count 216 MPV 13.0 H Immature Gran % (Auto) 0.5 Neut % (Auto) 77.7 H Lymph % (Auto) 12.4 L [place] % (Auto) 7.9 Eos % (Auto) 1.3 Baso % (Auto) 0.2 Lymph # (Auto) 1.07 [place] # (Auto) 0.7 H Eos # (Auto) 0.1 Baso # (Auto) 0.0 Abs Immat Gran (auto) 0.04 H Absolute Neuts (auto) 6.7 Absolute Nucleated RBC 0.000 Nucleated RBC % 0.0 Sodium 142 Potassium 3.7 Chloride 103 Carbon Dioxide 21 L Anion Gap 18 H BUN 181 H D Creatinine 9.10 H Estim Creat Clear Calc 6 Estimated GFR 7 L Glucose 154 H POC Capillary Glucose 157 H Calcium 7.6 L Phosphorus 9.4 H Magnesium 1.8 Albumin 2.9 L
[2024-07-15 12:45] LABS: Glucose Point of Care 139 mg/dl (65-105)
--- NOTE | 2024-07-15 14:02 | PC.NURSE ---
0800 flush performed by nursing students and their instructor.
[2024-07-15 18:15] LABS: Glucose Point of Care 149 mg/dl (65-105)
[2024-07-15] MEDS: INSULIN GLARGINE (*BKC) 100 UNITS/ML 6 UNITS SUB-Q (22:00)
[2024-07-16] VITALS (9 sets, daily range): BP systolic 145–155; BP diastolic 58–99; PULSE 62–75; RESP 14–20; TEMP 36.7–37; O2SAT 98–100
[2024-07-16 05:53] LABS: Glucose Point of Care 145 mg/dl (65-105)
[2024-07-16 06:26] LABS: Basophils Percent Auto 0.2 % (0.2-1.2); Eosinophils Absolute Auto 0.2 K/mm3 (0-0.3); Hematocrit 23.9 % (42.0-52.0); Hemoglobin 7.4 g/dL (14.0-18.0); Immature Granulocyte Absolute 0.04 K/mm3 (0.00-0.031); Immature Granulocyte Percent A 0.4 % (0-0.5); Lymphocytes Absolute Auto 1.31 K/mm3 (0.9-3.2); Mean Corpuscular Hemoglobin 29.2 pg (26-34); Mean Corpuscular Volume 94.5 fl (80-100); Mean Platelet Volume 12.2 fl (7.4-10.4); Monocytes Absolute Auto 0.8 K/mm3 (0.1-0.6); Monocytes Percent Auto 8.2 % (2.6-8.5); Neutrophils Absolute Auto 7.1 K/mm3 (1.3-6.7); Neutrophils Percent Auto 75.2 % (45.5-73.1); Platelet Count Result 240 k/mm3 (150-375); Red Blood Count 2.53 M/mm3 (4.6-6.20); White Blood Count 9.4 K/mm3 (4.5-10.0)
[2024-07-16 06:43] LABS: Albumin Level 2.9 g/dL (3.5-5.1); Anion Gap 14 mmol/L (4-12); Calcium 7.7 mg/dL (8.4-10.2); Carbon Dioxide 21 mmol/L (22-30); Chloride 104 mmol/L (98-107); Estimated CRCL calculation 6 ml/min; Estimated Glomerular Filt Rate 7; Glucose 146 mg/dL (65-110); Magnesium 1.9 mg/dL (1.6-2.3); Phosphorus 8.8 mg/dL (2.5-4.5); Potassium 3.7 mmol/L (3.4-5.0); Sodium 139 mmol/L (137-145)
[2024-07-16 06:47] LABS: Blood Urea Nitrogen 171 mg/dL (9-20)
--- NOTE | 2024-07-16 10:14 | PM.PNGS ---
Progress Note: A&P Assessment and Plan (1) Acute kidney injury superimposed on CKD: Code(s): N17.9 - Acute kidney failure, unspecified; N18.9 - Chronic kidney disease, unspecified Status: Acute Assessment and Plan: cont to be stable overall despite worsening renal failure, electrolytes ok and does not seem to be fluid overloaded, long d/w hospitalist and anesthesia given high risk cardiac issues do not think he is a candidate for placement of TDC Subjective Subjective Date/Time Seen: 07/16/24 10:14 Interval history: no acute issues Review of Systems Review of Systems: ROS unobtainable: Yes unobtainable due to medical condition and unobtainable due to mental status Exam Const: General: ill appearing and patient obtunded GI: Inspection: normal to inspection Other: PEG - C/D/I Objective Data Vital Signs Vital Signs: Vital Signs - 24 hr 07/15/24 12:00 07/15/24 14:00 07/15/24 16:00 Temperature 37.1 C Pulse Rate 67 70 67 Respiratory Rate 16 Blood Pressure 140/70 Pulse Oximetry 100 07/15/24 22:00 07/15/24 20:00 07/16/24 00:00 Temperature 37.1 C Pulse Rate 70 75 75 Respiratory Rate 20 Blood Pressure 151/78 H Pulse Oximetry 100 07/16/24 04:00 07/16/24 06:00 Temperature 37.0 C Pulse Rate 69 64 Respiratory Rate 14 Blood Pressure 155/60 H Pulse Oximetry 98 Intake/Output Intake/Output: Intake & Output 07/13/24 07/14/24 07/15/24 07/16/24 23:59 23:59 23:59 23:59 Intake Total 0 686 Output Total 450 750 500 525 Balance -450 -750 186 -525 Meds/Results Medications: Active Medications Generic Name Dose Route Start Last Admin Trade Name Freq PRN Reason Stop Dose Admin Acetaminophen 650 mg 07/13/24 16:30 Acetaminophen 325 Mg Tablet FEED TUBE Q6H PRN Pain (Scale Score 1-3) Atorvastatin Calcium 20 mg 07/13/24 09:00 07/15/24 08:20 Atorvastatin 20 Mg Tablet FEED TUBE 20 mg DAILY URIAH Administration Dextrose 12.5 gm 07/03/24 23:35 Dextrose 50% 25 Gm/50 Ml Syringe IV PUSH PRN PRN Hypoglycemia Protocol Glucagon 1 mg 07/03/24 23:35 Glucagon For Inj 1 Mg Vial IM PRN PRN Hypoglycemia Protocol Glucose 15 gm 07/03/24 23:35 Glucose Oral Gel 15 Gm Of Glucse In 37.5 Gm Tube PO PRN PRN Hypoglycemia Protocol Heparin Sodium (Porcine) 5,000 units 07/13/24 21:00 07/15/24 21:59 Heparin Sodium 5,000 Units/Ml Vial SUB-Q 5,000 units Q12HR URIAH Administration Hydralazine HCl 50 mg 07/13/24 09:00 07/15/24 18:22 Hydralazine Hcl 50 Mg Tablet FEED TUBE 50 mg TID URIAH Administration Dextrose 1,000 mls @ 100 mls/hr 07/03/24 23:35 Dextrose 5% 1,000 Ml IVPB PRN PRN Hypoglycemia Protocol Insulin Glargine 6 units 07/04/24 21:00 07/15/24 22:00 Insulin Glargine (*Bkc) 100 Units/Ml SUB-Q 6 units HS URIAH Administration Sevelamer Carbonate 800 mg 07/15/24 08:00 07/15/24 18:23 Sevelamer Carbonate 800 Mg Tablet FEED TUBE 800 mg TIDWM URIAH Administration Radiology Results: ITS Impressions Head CT 07/02/24 06:32 IMPRESSION: 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 Renal Ultrasound 07/02/24 11:50 IMPRESSION: 1. Normal right kidney. 2. Left kidney and bladder not evaluated. Abdomen X-Ray 07/06/24 16:36 IMPRESSION: 1. Normal bowel gas pattern. Modified Barium Swallow 07/07/24 15:06 IMPRESSION: Pharyngeal dysphagia with laryngeal penetration and aspiration with multiple consistencies. Please correlate with speech pathologist findings and specific feeding recommendations. Labs Labs: Laboratory Results - last 24 hr 07/15/24 07/15/24 07/16/24 12:35 18:11 05:38 WBC RBC Hgb Hct MCV MCH MCHC RDW Plt Count MPV Immature Gran % (Auto) Neut % (Auto) Lymph % (Auto) [place] % (Auto) Eos % (Auto) Baso % (Auto) Lymph # (Auto) [place] # (Auto) Eos # (Auto) Baso # (Auto) Abs Immat Gran (auto) Absolute Neuts (auto) Absolute Nucleated RBC Nucleated RBC % Sodium Potassium Chloride Carbon Dioxide Anion Gap BUN Creatinine Estim Creat Clear Calc Estimated GFR Glucose POC Capillary Glucose 139 H 149 H 145 H Calcium Phosphorus Magnesium Albumin 07/16/24 06:17 WBC 9.4 RBC 2.53 L Hgb 7.4 L Hct 23.9 L MCV 94.5 MCH 29.2 MCHC 31.0 L RDW 13.0 Plt Count 240 MPV 12.2 H Immature Gran % (Auto) 0.4 Neut % (Auto) 75.2 H Lymph % (Auto) 14.0 L [place] % (Auto) 8.2 Eos % (Auto) 2.0 Baso % (Auto) 0.2 Lymph # (Auto) 1.31 [place] # (Auto) 0.8 H Eos # (Auto) 0.2 Baso # (Auto) 0.0 Abs Immat Gran (auto) 0.04 H Absolute Neuts (auto) 7.1 H Absolute Nucleated RBC 0.000 Nucleated RBC % 0.0 Sodium 139 Potassium 3.7 Chloride 104 Carbon Dioxide 21 L Anion Gap 14 H BUN 171 H D Creatinine 9.10 H Estim Creat Clear Calc 6 Estimated GFR 7 L Glucose 146 H POC Capillary Glucose Calcium 7.7 L Phosphorus 8.8 H Magnesium 1.9 Albumin 2.9 L
--- NOTE | 2024-07-16 10:30 | P.PNNP_ITS ---
Progress Note: A&P Assessment and Plan (1) LINDSEY (acute kidney injury): Code(s): N17.9 - Acute kidney failure, unspecified Status: Acute Assessment and Plan: * as noted by markedly elevate BUN and creatinine (BUN 199 and creatinine 12.8) on admission * evaluation to date noted: * renal ultrasound with normal right kidney (unable to visualize bladder and left kidney) * rare urine eosinophils (difficult to interpret in context of possible UTI) * urine electrolytes non-prerenal * nephrotic range proteinuria noted * suspect LINDSEY multifactorial ATN: * volume depletion/dehydration * diuretic use prior to admission * urinary tract infection * possible progression of CKD * No uremic symptoms * Surgery to place a catheter early this week (2) Chronic kidney disease, stage IV (severe): Code(s): N18.4 - Chronic kidney disease, stage 4 (severe) Status: Chronic Assessment and Plan: * baseline creatinine ~ 3.7 - 4.10mg/dl (based on last labs in Oct 2023) * due to a combo of diabetes, hypertension, and age-related change * cannot deny a possibility of CKD progression (3) Hypernatremia: Code(s): E87.0 - Hyperosmolality and hypernatremia Status: Resolved Assessment and Plan: * resolved (4) Acute UTI: Code(s): N39.0 - Urinary tract infection, site not specified Status: Acute Assessment and Plan: * completed course of antibiotics (5) Hypertension: Code(s): I10 - Essential (primary) hypertension Status: Chronic Assessment and Plan: * Blood pressure 100s to 140s * diuretics on hold due to #2 (6) Anemia: Code(s): D64.9 - Anemia, unspecified Status: Acute Assessment and Plan: * noted drop in H/H by AM labs * suspect secondary to hemoconcentration from volume depletion * iron studies suggest chronic disease * Hemoglobin 7.4. He is on Epogen (7) Dementia: Code(s): F03.90 - Unspecified dementia, unspecified severity, without behavioral disturbance, psychotic disturbance, mood disturbance, and anxiety Status: Acute Assessment and Plan: * at baseline * continue supportive therapy (8) Insulin dependent diabetes mellitus: Status: Chronic Assessment and Plan: * follow accu-cheks * glycemic control per hospitalists Subjective Date/time seen: 07/16/24 10:30 Interval history: Patient is awake. He answered 1 question. He is not in pain. For that he wore out. Exam Narrative: General: frail appearing male in NAD Heart: normal S1 and S2; no rub or gallop Lungs: clear bilaterally Abdomen: soft, nontender, nondistended, positive bowel sounds Extremities: no cyanosis or clubbing; no edema; contracted posture Skin: No rash or subQ nodules Objective Data Vital Signs Vital Signs: Vital Signs - 24 hr 07/15/24 12:00 07/15/24 14:00 07/15/24 16:00 Temperature 98.8 F Pulse Rate 67 70 67 Respiratory Rate 16 Blood Pressure 140/70 Pulse Oximetry 100 07/15/24 22:00 07/15/24 20:00 07/16/24 00:00 Temperature 98.8 F Pulse Rate 70 75 75 Respiratory Rate 20 Blood Pressure 151/78 H Pulse Oximetry 100 07/16/24 04:00 07/16/24 06:00 Temperature 98.6 F Pulse Rate 69 64 Respiratory Rate 14 Blood Pressure 155/60 H Pulse Oximetry 98 Intake/Output Intake/Output: Intake & Output 07/13/24 07/14/24 07/15/24 07/16/24 23:59 23:59 23:59 23:59 Intake Total 0 686 Output Total 450 750 500 525 Balance -450 -750 186 -525 Meds/Results Medications: Active Medications Generic Name Dose Route Start Last Admin Trade Name Freq PRN Reason Stop Dose Admin Acetaminophen 650 mg 07/13/24 16:30 Acetaminophen 325 Mg Tablet FEED TUBE Q6H PRN Pain (Scale Score 1-3) Atorvastatin Calcium 20 mg 07/13/24 09:00 07/15/24 08:20 Atorvastatin 20 Mg Tablet FEED TUBE 20 mg DAILY URIAH Administration Dextrose 12.5 gm 07/03/24 23:35 Dextrose 50% 25 Gm/50 Ml Syringe IV PUSH PRN PRN Hypoglycemia Protocol Glucagon 1 mg 07/03/24 23:35 Glucagon For Inj 1 Mg Vial IM PRN PRN Hypoglycemia Protocol Glucose 15 gm 07/03/24 23:35 Glucose Oral Gel 15 Gm Of Glucse In 37.5 Gm Tube PO PRN PRN Hypoglycemia Protocol Heparin Sodium (Porcine) 5,000 units 07/13/24 21:00 07/15/24 21:59 Heparin Sodium 5,000 Units/Ml Vial SUB-Q 5,000 units Q12HR URIAH Administration Hydralazine HCl 50 mg 07/13/24 09:00 07/15/24 18:22 Hydralazine Hcl 50 Mg Tablet FEED TUBE 50 mg TID URIAH Administration Dextrose 1,000 mls @ 100 mls/hr 07/03/24 23:35 Dextrose 5% 1,000 Ml IVPB PRN PRN Hypoglycemia Protocol Insulin Glargine 6 units 07/04/24 21:00 07/15/24 22:00 Insulin Glargine (*Bkc) 100 Units/Ml SUB-Q 6 units HS URIAH Administration Sevelamer Carbonate 800 mg 07/15/24 08:00 07/15/24 18:23 Sevelamer Carbonate 800 Mg Tablet FEED TUBE 800 mg TIDWM URIAH Administration Radiology Results: ITS Impressions Head CT 07/02/24 06:32 IMPRESSION: 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 Renal Ultrasound 07/02/24 11:50 IMPRESSION: 1. Normal right kidney. 2. Left kidney and bladder not evaluated. Abdomen X-Ray 07/06/24 16:36 IMPRESSION: 1. Normal bowel gas pattern. Modified Barium Swallow 07/07/24 15:06 IMPRESSION: Pharyngeal dysphagia with laryngeal penetration and aspiration with multiple consistencies. Please correlate with speech pathologist findings and specific feeding recommendations. Labs Labs: Laboratory Results - last 24 hr 07/15/24 07/15/24 07/16/24 12:35 18:11 05:38 WBC RBC Hgb Hct MCV MCH MCHC RDW Plt Count MPV Immature Gran % (Auto) Neut % (Auto) Lymph % (Auto) [place] % (Auto) Eos % (Auto) Baso % (Auto) Lymph # (Auto) [place] # (Auto) Eos # (Auto) Baso # (Auto) Abs Immat Gran (auto) Absolute Neuts (auto) Absolute Nucleated RBC Nucleated RBC % Sodium Potassium Chloride Carbon Dioxide Anion Gap BUN Creatinine Estim Creat Clear Calc Estimated GFR Glucose POC Capillary Glucose 139 H 149 H 145 H Calcium Phosphorus Magnesium Albumin 07/16/24 06:17 WBC 9.4 RBC 2.53 L Hgb 7.4 L Hct 23.9 L MCV 94.5 MCH 29.2 MCHC 31.0 L RDW 13.0 Plt Count 240 MPV 12.2 H Immature Gran % (Auto) 0.4 Neut % (Auto) 75.2 H Lymph % (Auto) 14.0 L [place] % (Auto) 8.2 Eos % (Auto) 2.0 Baso % (Auto) 0.2 Lymph # (Auto) 1.31 [place] # (Auto) 0.8 H Eos # (Auto) 0.2 Baso # (Auto) 0.0 Abs Immat Gran (auto) 0.04 H Absolute Neuts (auto) 7.1 H Absolute Nucleated RBC 0.000 Nucleated RBC % 0.0 Sodium 139 Potassium 3.7 Chloride 104 Carbon Dioxide 21 L Anion Gap 14 H BUN 171 H D Creatinine 9.10 H Estim Creat Clear Calc 6 Estimated GFR 7 L Glucose 146 H POC Capillary Glucose Calcium 7.7 L Phosphorus 8.8 H Magnesium 1.9 Albumin 2.9 L
[2024-07-16] MEDS: SEVELAMER CARBONATE 800 MG TABLET FEED TUBE ×3 (10:57→18:20)
[2024-07-16] MEDS: ATORVASTATIN 20 MG TABLET FEED TUBE (10:57)
[2024-07-16] MEDS: HEPARIN SODIUM 5,000 UNITS/ML VIAL 5000 UNITS SUB-Q ×2 (10:57→20:24)
[2024-07-16] MEDS: hydrALAZINE HCL 50 MG TABLET FEED TUBE ×3 (10:57→18:20)
[2024-07-16 12:08] LABS: Glucose Point of Care 167 mg/dl (65-105)
[2024-07-16] MEDS: EPOETIN ALFA-EPBX 10,000 UNITS/ML VIAL 10000 UNITS SUB-Q (12:33)
--- NOTE | 2024-07-16 13:03 | P.PNIM_ITS ---
Progress Note: A&P Assessment and Plan (1) Renal failure (ARF), acute on chronic: Code(s): N17.9 - Acute kidney failure, unspecified; N18.9 - Chronic kidney disease, unspecified Status: Acute Assessment and Plan: Patient has known CKD with Cr toward the end of his last hospitalization being 3.7-3.9 and stable for a few days. BUN was in the 60's. BUN 199 with Cr 12.8 on this admission. Suspect related to dehydration but Urine eos rare and Reymundo 80. FENa 8% with FEUrea 52% more consistent with ATN. Prot/Cr ratio 4.2gm c/w nephrotic range proteinuria as well. Renal US showing normal right kidney but left kidney and bladder unable to be visualized. LINDSEY probably related to poor oral intake, worsening CKD IV, diuretic therapy (Lasix and HCTZ that was TID), UTI. Renal function better with Cr at 9.1 and BUN 171 Potassium normal and serum bicarb at 21 (AG 14) Lan in place: Urine output is decreasing 1150->450->450->750->500->525mL so far today On TF and off IV fluids. Phosphate binder added per nephrology. Monitor UOP, electrolytes and renal function. Management per quiller operator. HD being considered for next week but he is high risk surgical candidate due to his AV dissociation. Appreciate GenSurg input. Discussed with surgery and explained risks and that he would need Cards clearance. GenSurg has declined to place tunneled HD catheter at this time. (2) Aspiration of food: Code(s): T17.928A - Food in respiratory tract, part unspecified causing other injury, initial encounter; W44.F3XA - Food entering into or through a natural orifice, initial encounter Status: Acute Assessment and Plan: Patient with poor oral intake related to dysphagia and/or inadequate feeding. Consulted speech therapy. MBS completed showing patient should be non-oral feeding. Patient did not allow NG placement so TPN started. GI consulted. G-tube planned as it was not safe for patient to eat. No guardian/POA to decide next course of action so decided to proceed with GTube placement that was done 07/12. He tolerated this well. TF started and tolerating at goal. Appreciate Senior Information Systems Architect input. 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 Was on clonidine patch on admission which can slow conduction. Old EKG in September showing sinus rhythm with CHB and junctional escape rhythm. Cardiology note from Sep reviewed: patient with asymptomatic AV dissociation. PM is indicated but they felt not clinically indicated given the patient's poor healthy. Has had this rhythm as far back as April 2023. EKG showing sinus rhythm with high degree AV block, Rt BBB and marked T wave changes in the anterolateral and inferior leads. He was weaned off clonidine patch. He was on Eliquis at the time of last discharge but not listed as home med now. Consider resuming closer to discharge. Monitor on tele (4) A-fib: Code(s): I48.91 - Unspecified atrial fibrillation Status: Acute Assessment and Plan: As above (5) Hypernatremia: Code(s): E87.0 - Hyperosmolality and hypernatremia Status: Resolved Assessment and Plan: Patient brought in for abnormal labs. Na was 163. Chloride 122. Clinically he appeared dehydrated. He takes oral intake and suspect he is not taking enough to sustain himself. He was started on 1/2NS and sodium dropped to 160. Changed to D5W and Na improved to 148 RN noted some coughing with feeding but no hypoxia. He was eating but speech therapy felt he was not safe to do so. Nephrology followed and managed sodium levels. Appreciate their input Sodium level is normal now. Resolved Follow (6) Chronic kidney disease, stage IV (severe): Code(s): N18.4 - Chronic kidney disease, stage 4 (severe) Status: Chronic Assessment and Plan: Patient with CKD, stage IV As above. (7) Acute UTI: Code(s): N39.0 - Urinary tract infection, site not specified Status: Acute Assessment and Plan: UA is consistent with UTI. UCx collected. Hx of ESBL EColi so Meropenem started. UCx growing proteus that is mostly pansensitive. Changed to Rocephin and he has since completed a coarse of treatment (8) Hypertension: Code(s): I10 - Essential (primary) hypertension Status: Chronic Assessment and Plan: Patient's blood pressure was reviewed on 07/16 BP was too well controlled and possibly causing worsening renal function so Norvasc stopped. Blood pressure much better controlled. Continue Hydralazine only (9) Insulin dependent diabetes mellitus: Status: Chronic Assessment and Plan: A1c 5.6%. Glucose reviewed on 07/16 Continue AccuCheks covering with sliding scale. Hypoglycemia protocol available as needed. Continue to monitor. Glucose 146 this morning. Continue Lantus low dose at night. (10) Anemia: Code(s): D64.9 - Anemia, unspecified Status: Acute Assessment and Plan: Hgb dropped to 6.4 from 8.9. No evidence of acute blood loss. Suspect related to IV fluids and that he was hemoconcentrated. Iron studies consistent with anemia of chronic disease probably related to his renal failure Transfused and Hgb better in the 7-8 range Follow and transfuse as needed. (11) Dementia: Code(s): F03.90 - Unspecified dementia, unspecified severity, without behavioral disturbance, psychotic disturbance, mood disturbance, and anxiety Status: Acute Assessment and Plan: Patient is nonverbal. Not on treatment for dementia. Follow Plan DVT prophylaxis - SCDs. heparin SQ Full code by default. Unclear who the guardian is. Investigation ongoing. Custody paperwork completed Subjective Date/time seen: 07/16/24 13:03 Interval history: 73yo male with dementia, CKD, DM, AFib and HTN here for worsening renal failure. Patient is nonverbal and unable to provide hx. Review of Systems Review of Systems: ROS unobtainable: Yes unobtainable due to mental status Exam Narrative: AF 98.6 155/60 64 14 98% ra Gen - NARD Chest - clear anteriorly to quiet respirations. nml RR CV - irregularly irregular. Tele showing AV dissociation Abd - Soft, ND, GT in situ - Lan secured draining clear yellow urine. Ext - No pedal edema Neuro - Alert. non verbal. Skin - Warm and dry. Objective Data Vital Signs Vital Signs: Vital Signs - 24 hr 07/15/24 14:00 07/15/24 16:00 07/15/24 22:00 Temperature 98.8 F 98.8 F Pulse Rate 70 67 70 Respiratory Rate 16 20 Blood Pressure 140/70 151/78 H Pulse Oximetry 100 100 07/15/24 20:00 07/16/24 00:00 07/16/24 04:00 Temperature Pulse Rate 75 75 69 Respiratory Rate Blood Pressure Pulse Oximetry 07/16/24 06:00 Temperature 98.6 F Pulse Rate 64 Respiratory Rate 14 Blood Pressure 155/60 H Pulse Oximetry 98 Intake/Output Intake/Output: Intake & Output 07/13/24 07/14/24 07/15/24 07/16/24 23:59 23:59 23:59 23:59 Intake Total 0 686 Output Total 450 750 500 525 Balance -450 -750 186 -525 Meds/Results Medications: Active Medications Generic Name Dose Route Start Last Admin Trade Name Freq PRN Reason Stop Dose Admin Acetaminophen 650 mg 07/13/24 16:30 Acetaminophen 325 Mg Tablet FEED TUBE Q6H PRN Pain (Scale Score 1-3) Atorvastatin Calcium 20 mg 07/13/24 09:00 07/16/24 10:57 Atorvastatin 20 Mg Tablet FEED TUBE 20 mg DAILY URIAH Administration Dextrose 12.5 gm 07/03/24 23:35 Dextrose 50% 25 Gm/50 Ml Syringe IV PUSH PRN PRN Hypoglycemia Protocol Glucagon 1 mg 07/03/24 23:35 Glucagon For Inj 1 Mg Vial IM PRN PRN Hypoglycemia Protocol Glucose 15 gm 07/03/24 23:35 Glucose Oral Gel 15 Gm Of Glucse In 37.5 Gm Tube PO PRN PRN Hypoglycemia Protocol Heparin Sodium (Porcine) 5,000 units 07/13/24 21:00 07/16/24 10:57 Heparin Sodium 5,000 Units/Ml Vial SUB-Q 5,000 units Q12HR URIAH Administration Hydralazine HCl 50 mg 07/13/24 09:00 07/16/24 10:57 Hydralazine Hcl 50 Mg Tablet FEED TUBE 50 mg TID URIAH Administration Dextrose 1,000 mls @ 100 mls/hr 07/03/24 23:35 Dextrose 5% 1,000 Ml IVPB PRN PRN Hypoglycemia Protocol Insulin Glargine 6 units 07/04/24 21:00 07/15/24 22:00 Insulin Glargine (*Bkc) 100 Units/Ml SUB-Q 6 units HS URIAH Administration Sevelamer Carbonate 800 mg 07/15/24 08:00 07/16/24 10:57 Sevelamer Carbonate 800 Mg Tablet FEED TUBE 800 mg TIDWM URIAH Administration Radiology Results: ITS Impressions Head CT 07/02/24 06:32 IMPRESSION: 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 Renal Ultrasound 07/02/24 11:50 IMPRESSION: 1. Normal right kidney. 2. Left kidney and bladder not evaluated. Abdomen X-Ray 07/06/24 16:36 IMPRESSION: 1. Normal bowel gas pattern. Modified Barium Swallow 07/07/24 15:06 IMPRESSION: Pharyngeal dysphagia with laryngeal penetration and aspiration with multiple consistencies. Please correlate with speech pathologist findings and specific feeding recommendations. Labs Labs: Laboratory Results - last 24 hr 07/15/24 07/16/24 07/16/24 18:11 05:38 06:17 WBC 9.4 RBC 2.53 L Hgb 7.4 L Hct 23.9 L MCV 94.5 MCH 29.2 MCHC 31.0 L RDW 13.0 Plt Count 240 MPV 12.2 H Immature Gran % (Auto) 0.4 Neut % (Auto) 75.2 H Lymph % (Auto) 14.0 L [place] % (Auto) 8.2 Eos % (Auto) 2.0 Baso % (Auto) 0.2 Lymph # (Auto) 1.31 [place] # (Auto) 0.8 H Eos # (Auto) 0.2 Baso # (Auto) 0.0 Abs Immat Gran (auto) 0.04 H Absolute Neuts (auto) 7.1 H Absolute Nucleated RBC 0.000 Nucleated RBC % 0.0 Sodium 139 Potassium 3.7 Chloride 104 Carbon Dioxide 21 L Anion Gap 14 H BUN 171 H D Creatinine 9.10 H Estim Creat Clear Calc 6 Estimated GFR 7 L Glucose 146 H POC Capillary Glucose 149 H 145 H Calcium 7.7 L Phosphorus 8.8 H Magnesium 1.9 Albumin 2.9 L 07/16/24 11:59 WBC RBC Hgb Hct MCV MCH MCHC RDW Plt Count MPV Immature Gran % (Auto) Neut % (Auto) Lymph % (Auto) [place] % (Auto) Eos % (Auto) Baso % (Auto) Lymph # (Auto) [place] # (Auto) Eos # (Auto) Baso # (Auto) Abs Immat Gran (auto) Absolute Neuts (auto) Absolute Nucleated RBC Nucleated RBC % Sodium Potassium Chloride Carbon Dioxide Anion Gap BUN Creatinine Estim Creat Clear Calc Estimated GFR Glucose POC Capillary Glucose 167 H Calcium Phosphorus Magnesium Albumin
--- NOTE | 2024-07-16 18:17 | PC.NURSE ---
On 07/16/24, the AIR CONDITIONING SHEET METAL INSTALLER, Meka, provided care and completed [facility] documentation on this patient. I have reviewed the AIR CONDITIONING SHEET METAL INSTALLER's documentation and agree with the findings.
[2024-07-16 18:45] LABS: Glucose Point of Care 165 mg/dl (65-105)
[2024-07-16] MEDS: INSULIN GLARGINE (*BKC) 100 UNITS/ML 6 UNITS SUB-Q (20:22)
[2024-07-16 22:01] LABS: Glucose Point of Care 154 mg/dl (65-105)
[2024-07-17] VITALS (9 sets, daily range): BP systolic 100–160; BP diastolic 54–78; PULSE 61–77; RESP 14–26; TEMP 36.4–36.8; O2SAT 100
[2024-07-17 06:55] LABS: Albumin Level 2.8 g/dL (3.5-5.1); Anion Gap 16 mmol/L (4-12); Calcium 7.8 mg/dL (8.4-10.2); Carbon Dioxide 22 mmol/L (22-30); Chloride 100 mmol/L (98-107); Estimated CRCL calculation 6 ml/min; Estimated Glomerular Filt Rate 7; Glucose 139 mg/dL (65-110); Phosphorus 8.1 mg/dL (2.5-4.5); Potassium 3.5 mmol/L (3.4-5.0); Sodium 138 mmol/L (137-145)
[2024-07-17 07:25] LABS: Blood Urea Nitrogen 181 mg/dL (9-20)
[2024-07-17] MEDS: HEPARIN SODIUM 5,000 UNITS/ML VIAL 5000 UNITS SUB-Q ×2 (09:12→20:08)
[2024-07-17] MEDS: hydrALAZINE HCL 50 MG TABLET FEED TUBE ×3 (09:13→17:52)
[2024-07-17] MEDS: ATORVASTATIN 20 MG TABLET FEED TUBE (09:13)
[2024-07-17] MEDS: SEVELAMER CARBONATE 800 MG TABLET FEED TUBE ×3 (09:13→17:52)
[2024-07-17 12:04] LABS: Glucose Point of Care 157 mg/dl (65-105)
--- NOTE | 2024-07-17 12:10 | P.PNNP_ITS ---
Progress Note: A&P Assessment and Plan (1) LINDSEY (acute kidney injury): Code(s): N17.9 - Acute kidney failure, unspecified Status: Acute Assessment and Plan: * as noted by markedly elevate BUN and creatinine (BUN 199 and creatinine 12.8) on admission * evaluation to date noted: * renal ultrasound with normal right kidney (unable to visualize bladder and left kidney) * rare urine eosinophils (difficult to interpret in context of possible UTI) * urine electrolytes non-prerenal * nephrotic range proteinuria noted * suspect LINDSEY multifactorial ATN: * volume depletion/dehydration * diuretic use prior to admission * urinary tract infection * possible progression of CKD * patient has severe dementia so it is hard to know how much of his mental status is this versus uremia. * Surgery to place a catheter early this week . I put a request in to find out when this was going to happen. (2) Chronic kidney disease, stage IV (severe): Code(s): N18.4 - Chronic kidney disease, stage 4 (severe) Status: Chronic Assessment and Plan: * baseline creatinine ~ 3.7 - 4.10mg/dl (based on last labs in Oct 2023) * due to a combo of diabetes, hypertension, and age-related change * cannot deny a possibility of CKD progression (3) Hypernatremia: Code(s): E87.0 - Hyperosmolality and hypernatremia Status: Resolved Assessment and Plan: * resolved (4) Acute UTI: Code(s): N39.0 - Urinary tract infection, site not specified Status: Acute Assessment and Plan: * completed course of antibiotics (5) Hypertension: Code(s): I10 - Essential (primary) hypertension Status: Chronic Assessment and Plan: * Blood pressure 100s to 140s * diuretics on hold due to #2 (6) Anemia: Code(s): D64.9 - Anemia, unspecified Status: Acute Assessment and Plan: * noted drop in H/H by AM labs * suspect secondary to hemoconcentration from volume depletion * iron studies suggest chronic disease * Hemoglobin 7.4. He is on Epogen (7) Dementia: Code(s): F03.90 - Unspecified dementia, unspecified severity, without behavioral disturbance, psychotic disturbance, mood disturbance, and anxiety Status: Acute Assessment and Plan: * at baseline * continue supportive therapy (8) Insulin dependent diabetes mellitus: Status: Chronic Assessment and Plan: * follow accu-cheks * glycemic control per hospitalists Subjective Date/time seen: 07/17/24 12:10 Interval history: patient is calm and comfortable. Not very interactive Exam Narrative: General: frail appearing male in NAD Heart: normal S1 and S2; no rub or gallop Lungs: clear to auscultation Abdomen: soft, nontender, nondistended, positive bowel sounds Extremities: no edema; contracted posture Skin: No rash Objective Data Vital Signs Vital Signs: Vital Signs - 24 hr 07/16/24 14:00 07/16/24 16:00 07/16/24 20:00 Temperature 98.1 F Pulse Rate 74 72 Respiratory Rate 20 Blood Pressure 145/99 H Pulse Oximetry 100 Oxygen Delivery Room Air 07/16/24 20:00 07/17/24 00:00 07/17/24 04:00 Temperature Pulse Rate 72 71 68 Respiratory Rate Blood Pressure Pulse Oximetry Oxygen Delivery 07/16/24 22:00 07/17/24 06:00 07/17/24 08:00 Temperature 98.3 F 98.2 F Pulse Rate 62 62 67 Respiratory Rate 16 26 H Blood Pressure 150/58 H 160/54 H Pulse Oximetry 100 100 Oxygen Delivery 07/17/24 08:00 Temperature Pulse Rate 67 Respiratory Rate Blood Pressure Pulse Oximetry Oxygen Delivery Intake/Output Intake/Output: Intake & Output 07/14/24 07/15/24 07/16/24 07/17/24 23:59 23:59 23:59 23:59 Intake Total 0 686 0 Output Total 750 500 950 325 Balance -750 186 -950 -325 Meds/Results Medications: Active Medications Generic Name Dose Route Start Last Admin Trade Name Freq PRN Reason Stop Dose Admin Acetaminophen 650 mg 07/13/24 16:30 Acetaminophen 325 Mg Tablet FEED TUBE Q6H PRN Pain (Scale Score 1-3) Atorvastatin Calcium 20 mg 07/13/24 09:00 07/17/24 09:13 Atorvastatin 20 Mg Tablet FEED TUBE 20 mg DAILY URIAH Administration Dextrose 12.5 gm 07/03/24 23:35 Dextrose 50% 25 Gm/50 Ml Syringe IV PUSH PRN PRN Hypoglycemia Protocol Glucagon 1 mg 07/03/24 23:35 Glucagon For Inj 1 Mg Vial IM PRN PRN Hypoglycemia Protocol Glucose 15 gm 07/03/24 23:35 Glucose Oral Gel 15 Gm Of Glucse In 37.5 Gm Tube PO PRN PRN Hypoglycemia Protocol Heparin Sodium (Porcine) 5,000 units 07/13/24 21:00 07/17/24 09:12 Heparin Sodium 5,000 Units/Ml Vial SUB-Q 5,000 units Q12HR URIAH Administration Hydralazine HCl 50 mg 07/13/24 09:00 07/17/24 12:07 Hydralazine Hcl 50 Mg Tablet FEED TUBE 50 mg TID URIAH Administration Dextrose 1,000 mls @ 100 mls/hr 07/03/24 23:35 Dextrose 5% 1,000 Ml IVPB PRN PRN Hypoglycemia Protocol Insulin Glargine 6 units 07/04/24 21:00 07/16/24 20:22 Insulin Glargine (*Bkc) 100 Units/Ml SUB-Q 6 units HS URIAH Administration Sevelamer Carbonate 800 mg 07/15/24 08:00 07/17/24 12:07 Sevelamer Carbonate 800 Mg Tablet FEED TUBE 800 mg TIDWM URIAH Administration Radiology Results: ITS Impressions Head CT 07/02/24 06:32 IMPRESSION: 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 Renal Ultrasound 07/02/24 11:50 IMPRESSION: 1. Normal right kidney. 2. Left kidney and bladder not evaluated. Abdomen X-Ray 07/06/24 16:36 IMPRESSION: 1. Normal bowel gas pattern. Modified Barium Swallow 07/07/24 15:06 IMPRESSION: Pharyngeal dysphagia with laryngeal penetration and aspiration with multiple consistencies. Please correlate with speech pathologist findings and specific feeding recommendations. Labs Labs: Laboratory Results - last 24 hr 07/16/24 07/16/24 07/17/24 18:33 21:58 05:49 Sodium 138 Potassium 3.5 Chloride 100 Carbon Dioxide 22 Anion Gap 16 H BUN 181 H D Creatinine 9.10 H Estim Creat Clear Calc 6 Estimated GFR 7 L Glucose 139 H POC Capillary Glucose 165 H 154 H Calcium 7.8 L Phosphorus 8.1 H Albumin 2.8 L 07/17/24 12:01 Sodium Potassium Chloride Carbon Dioxide Anion Gap BUN Creatinine Estim Creat Clear Calc Estimated GFR Glucose POC Capillary Glucose 157 H Calcium Phosphorus Albumin
--- NOTE | 2024-07-17 12:38 | P.PNIM_ITS ---
Progress Note: A&P Assessment and Plan (1) Renal failure (ARF), acute on chronic: Code(s): N17.9 - Acute kidney failure, unspecified; N18.9 - Chronic kidney disease, unspecified Status: Acute Assessment and Plan: Patient has known CKD with Cr toward the end of his last hospitalization being 3.7-3.9 and stable for a few days. BUN was in the 60's. BUN 199 with Cr 12.8 on this admission. Suspect related to dehydration but Urine eos rare and Reymundo 80. FENa 8% with FEUrea 52% more consistent with ATN. Prot/Cr ratio 4.2gm c/w nephrotic range proteinuria as well. Renal US showing normal right kidney but left kidney and bladder unable to be visualized. LINDSEY probably related to poor oral intake, worsening CKD IV, diuretic therapy (Lasix and HCTZ that was TID), UTI. Renal function better with Cr at 9.1 and stable Potassium normal and serum bicarb at 22 (AG 16) Lan in place: Urine output was decreasing but better today: 1150->450->450->750->500->950-> 325mL so far today On TF and off IV fluids. Phosphate binder added per nephrology. Monitor UOP, electrolytes and renal function. Management per supervisor claims. HD being considered but he is high risk surgical candidate due to his AV dissociation. Appreciate GenSurg input. Discussed with surgery and explained risks and that he would need Cards clearance. GenSurg has declined to place tunneled HD catheter at this time since patient is asymptomatic. Discussed with Nephrology. Will start IVF at low dose and he will discuss with GenSurg about next steps. (2) Aspiration of food: Code(s): T17.928A - Food in respiratory tract, part unspecified causing other injury, initial encounter; W44.F3XA - Food entering into or through a natural orifice, initial encounter Status: Acute Assessment and Plan: Patient with poor oral intake related to dysphagia and/or inadequate feeding. Consulted speech therapy. MBS completed showing patient should be non-oral feeding. Patient did not allow NG placement so TPN started. GI consulted. G-tube planned as it was not safe for patient to eat. No guardian/POA to decide next course of action so decided to proceed with GTube placement that was done 07/12. He tolerated this well. TF started and tolerating at goal. Appreciate Production Specialist input. 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 Was on clonidine patch on admission which can slow conduction. He has an old PM in place. Old EKG in September showing sinus rhythm with CHB and junctional escape rhythm. Cardiology note from Sep reviewed: patient with asymptomatic AV dissociation. PM is indicated but they felt not clinically indicated given the patient's poor healthy. Has had this rhythm as far back as April 2023. EKG here showing sinus rhythm with high degree AV block, Rt BBB and marked T wave changes in the anterolateral and inferior leads. He was weaned off clonidine patch. He was on Eliquis at the time of last discharge but not listed as home med now. Consider resuming closer to discharge. Monitor on tele (4) A-fib: Code(s): I48.91 - Unspecified atrial fibrillation Status: Acute Assessment and Plan: As above (5) Hypernatremia: Code(s): E87.0 - Hyperosmolality and hypernatremia Status: Resolved Assessment and Plan: Patient brought in for abnormal labs. Na was 163. Chloride 122. Clinically he appeared dehydrated. He takes oral intake and suspect he is not taking enough to sustain himself. He was started on 1/2NS and sodium dropped to 160. Changed to D5W and Na improved to 148 Nephrology followed and managed sodium levels. Appreciate their input Sodium level is normal now. Resolved Follow (6) Chronic kidney disease, stage IV (severe): Code(s): N18.4 - Chronic kidney disease, stage 4 (severe) Status: Chronic Assessment and Plan: Patient with CKD, stage IV As above. (7) Acute UTI: Code(s): N39.0 - Urinary tract infection, site not specified Status: Acute Assessment and Plan: UA is consistent with UTI. UCx collected. Hx of ESBL EColi so Meropenem started. UCx growing proteus that is mostly pansensitive. Changed to Rocephin and he has since completed a coarse of treatment (8) Hypertension: Code(s): I10 - Essential (primary) hypertension Status: Chronic Assessment and Plan: Patient's blood pressure was reviewed on 07/17 BP was too well controlled and possibly causing worsening renal function so Norvasc stopped. Blood pressure mildly elevated. Continue Hydralazine only (9) Insulin dependent diabetes mellitus: Status: Chronic Assessment and Plan: A1c 5.6%. Glucose reviewed on 07/17 Continue AccuCheks covering with sliding scale. Hypoglycemia protocol available as needed. Continue to monitor. Glucose 139 this morning. Continue Lantus low dose at night. (10) Anemia: Code(s): D64.9 - Anemia, unspecified Status: Acute Assessment and Plan: Hgb dropped to 6.4 from 8.9. No evidence of acute blood loss. Suspect related to IV fluids and that he was hemoconcentrated. Iron studies consistent with anemia of chronic disease probably related to his renal failure Transfused and Hgb better in the 7-8 range Follow and transfuse as needed. (11) Dementia: Code(s): F03.90 - Unspecified dementia, unspecified severity, without behavioral disturbance, psychotic disturbance, mood disturbance, and anxiety Status: Acute Assessment and Plan: Patient is nonverbal. Not on treatment for dementia. 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 Suspect vascular dementia. Follow Plan DVT prophylaxis - SCDs. heparin SQ Full code by default. Unclear who the guardian is. Investigation ongoing. Custody paperwork completed Subjective Date/time seen: 07/17/24 12:38 Interval history: 73yo male with dementia, CKD, DM, AFib and HTN here for worsening renal failure. Patient is nonverbal and unable to provide hx. No issues per RN. Review of Systems Review of Systems: ROS unobtainable: Yes unobtainable due to mental status Exam Narrative: AF 98.2 160/54 67 26 100% ra Gen - NARD Chest - clear anteriorly to quiet respirations. nml RR. Old PM in the left upper chest CV - irregularly irregular. Tele showing AV dissociation and PVCs Abd - Soft, ND, GT in situ, binder in place - Lan secured draining clear yellow urine. Ext - No pedal edema Neuro - Alert. non verbal. Skin - Warm and dry. Objective Data Vital Signs Vital Signs: Vital Signs - 24 hr 07/16/24 14:00 07/16/24 16:00 07/16/24 20:00 Temperature 98.1 F Pulse Rate 74 72 Respiratory Rate 20 Blood Pressure 145/99 H Pulse Oximetry 100 Oxygen Delivery Room Air 07/16/24 20:00 07/17/24 00:00 07/17/24 04:00 Temperature Pulse Rate 72 71 68 Respiratory Rate Blood Pressure Pulse Oximetry Oxygen Delivery 07/16/24 22:00 07/17/24 06:00 07/17/24 08:00 Temperature 98.3 F 98.2 F Pulse Rate 62 62 67 Respiratory Rate 16 26 H Blood Pressure 150/58 H 160/54 H Pulse Oximetry 100 100 Oxygen Delivery 07/17/24 08:00 Temperature Pulse Rate 67 Respiratory Rate Blood Pressure Pulse Oximetry Oxygen Delivery Intake/Output Intake/Output: Intake & Output 07/14/24 07/15/24 07/16/24 07/17/24 23:59 23:59 23:59 23:59 Intake Total 0 686 0 Output Total 750 500 950 325 Balance -750 186 -950 -325 Meds/Results Medications: Active Medications Generic Name Dose Route Start Last Admin Trade Name Freq PRN Reason Stop Dose Admin Acetaminophen 650 mg 07/13/24 16:30 Acetaminophen 325 Mg Tablet FEED TUBE Q6H PRN Pain (Scale Score 1-3) Atorvastatin Calcium 20 mg 07/13/24 09:00 07/17/24 09:13 Atorvastatin 20 Mg Tablet FEED TUBE 20 mg DAILY URIAH Administration Dextrose 12.5 gm 07/03/24 23:35 Dextrose 50% 25 Gm/50 Ml Syringe IV PUSH PRN PRN Hypoglycemia Protocol Glucagon 1 mg 07/03/24 23:35 Glucagon For Inj 1 Mg Vial IM PRN PRN Hypoglycemia Protocol Glucose 15 gm 07/03/24 23:35 Glucose Oral Gel 15 Gm Of Glucse In 37.5 Gm Tube PO PRN PRN Hypoglycemia Protocol Heparin Sodium (Porcine) 5,000 units 07/13/24 21:00 07/17/24 09:12 Heparin Sodium 5,000 Units/Ml Vial SUB-Q 5,000 units Q12HR UIRAH Administration Hydralazine HCl 50 mg 07/13/24 09:00 07/17/24 12:07 Hydralazine Hcl 50 Mg Tablet FEED TUBE 50 mg TID URIAH Administration Dextrose 1,000 mls @ 100 mls/hr 07/03/24 23:35 Dextrose 5% 1,000 Ml IVPB PRN PRN Hypoglycemia Protocol Insulin Glargine 6 units 07/04/24 21:00 07/16/24 20:22 Insulin Glargine (*Bkc) 100 Units/Ml SUB-Q 6 units HS URIAH Administration Sevelamer Carbonate 800 mg 07/15/24 08:00 07/17/24 12:07 Sevelamer Carbonate 800 Mg Tablet FEED TUBE 800 mg TIDWM URIAH Administration Radiology Results: ITS Impressions Head CT 07/02/24 06:32 IMPRESSION: 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 Renal Ultrasound 07/02/24 11:50 IMPRESSION: 1. Normal right kidney. 2. Left kidney and bladder not evaluated. Abdomen X-Ray 07/06/24 16:36 IMPRESSION: 1. Normal bowel gas pattern. Modified Barium Swallow 07/07/24 15:06 IMPRESSION: Pharyngeal dysphagia with laryngeal penetration and aspiration with multiple consistencies. Please correlate with speech pathologist findings and specific feeding recommendations. Labs Labs: Laboratory Results - last 24 hr 07/16/24 07/16/24 07/17/24 18:33 21:58 05:49 Sodium 138 Potassium 3.5 Chloride 100 Carbon Dioxide 22 Anion Gap 16 H BUN 181 H D Creatinine 9.10 H Estim Creat Clear Calc 6 Estimated GFR 7 L Glucose 139 H POC Capillary Glucose 165 H 154 H Calcium 7.8 L Phosphorus 8.1 H Albumin 2.8 L 07/17/24 12:01 Sodium Potassium Chloride Carbon Dioxide Anion Gap BUN Creatinine Estim Creat Clear Calc Estimated GFR Glucose POC Capillary Glucose 157 H Calcium Phosphorus Albumin
[2024-07-17] MEDS: SODIUM CHLORIDE 0.9% IV 1,000 ML 60 ML IV CONT (14:00)
[2024-07-17 17:37] LABS: Glucose Point of Care 191 mg/dl (65-105)
[2024-07-17] MEDS: INSULIN GLARGINE (*BKC) 100 UNITS/ML 6 UNITS SUB-Q (20:13)
[2024-07-17 20:14] LABS: Glucose Point of Care 187 mg/dl (65-105)
[2024-07-17 23:43] LABS: Glucose Point of Care 188 mg/dl (65-105)
[2024-07-18] VITALS: PULSE 77
[2024-07-18 04:00] VITALS: PULSE 62
[2024-07-18 05:24] VITALS: BP 153/40; PULSE 65; RESP 16; TEMP 36.3; O2SAT 100
[2024-07-18 05:42] LABS: Glucose Point of Care 167 mg/dl (65-105)
[2024-07-18 06:47] LABS: Hematocrit 23.4 % (42.0-52.0); Hemoglobin 7.2 g/dL (14.0-18.0); Mean Corpuscular HGB Conc 30.8 g/dl (32-36); Mean Corpuscular Hemoglobin 29.3 pg (26-34); Mean Corpuscular Volume 95.1 fl (80-100); Mean Platelet Volume 12.8 fl (7.4-10.4); Platelet Count Result 239 k/mm3 (150-375); Red Blood Count 2.46 M/mm3 (4.6-6.20); White Blood Count 11.1 K/mm3 (4.5-10.0)
[2024-07-18 06:57] LABS: Anion Gap 15 mmol/L (4-12); Calcium 7.6 mg/dL (8.4-10.2); Carbon Dioxide 22 mmol/L (22-30); Chloride 102 mmol/L (98-107); Estimated CRCL calculation 6 ml/min; Estimated Glomerular Filt Rate 7; Glucose 174 mg/dL (65-110); Potassium 3.5 mmol/L (3.4-5.0); Sodium 139 mmol/L (137-145)
[2024-07-18 07:20] LABS: Blood Urea Nitrogen 180 mg/dL (9-20)
[2024-07-18 08:00] VITALS: PULSE 68
[2024-07-18] MEDS: SEVELAMER CARBONATE 800 MG TABLET FEED TUBE ×3 (08:11→16:54)
[2024-07-18] MEDS: hydrALAZINE HCL 50 MG TABLET FEED TUBE ×3 (08:11→16:55)
[2024-07-18] MEDS: ATORVASTATIN 20 MG TABLET FEED TUBE (08:11)
[2024-07-18] MEDS: HEPARIN SODIUM 5,000 UNITS/ML VIAL 5000 UNITS SUB-Q ×2 (08:11→19:55)
--- NOTE | 2024-07-18 10:56 | P.PNIM_ITS ---
Progress Note: A&P Assessment and Plan (1) Renal failure (ARF), acute on chronic: Code(s): N17.9 - Acute kidney failure, unspecified; N18.9 - Chronic kidney disease, unspecified Status: Acute Assessment and Plan: Patient has known CKD with Cr toward the end of his last hospitalization being 3.7-3.9 and stable for a few days. BUN was in the 60's. BUN 199 with Cr 12.8 on this admission. Suspect related to dehydration but Urine eos rare and Reymundo 80. FENa 8% with FEUrea 52% more consistent with ATN. Prot/Cr ratio 4.2gm c/w nephrotic range proteinuria as well. Renal US showing normal right kidney but left kidney and bladder unable to be visualized. LINDSEY probably related to poor oral intake, worsening CKD IV, diuretic therapy (Lasix and HCTZ that was TID), UTI. Renal function better with Cr at 9.1 and stable Potassium normal and serum bicarb at 22 (AG 16) Lan in place: Urine output was decreasing but better today: 1150->450->450->750->500->950-> 325mL so far today On TF and off IV fluids. Phosphate binder added per nephrology. Monitor UOP, electrolytes and renal function. Management per mechanical and auto body car checker. HD being considered but he is high risk surgical candidate due to his AV dissociation. Appreciate GenSurg input. Discussed with surgery and explained risks and that he would need Cards clearance. GenSurg has declined to place tunneled HD catheter at this time since patient is asymptomatic. Gave 1L NS without change in renal fxn. Repeat IVF. Nephrology to discuss with GenSurg about next steps. (2) Aspiration of food: Code(s): T17.928A - Food in respiratory tract, part unspecified causing other injury, initial encounter; W44.F3XA - Food entering into or through a natural orifice, initial encounter Status: Acute Assessment and Plan: Patient with poor oral intake related to dysphagia and/or inadequate feeding. Consulted speech therapy. MBS completed showing patient should be non-oral feeding. Patient did not allow NG placement so TPN started. GI consulted. G-tube planned as it was not safe for patient to eat. No guardian/POA to decide next course of action so decided to proceed with GTube placement that was done 07/12. He tolerated this well. TF started and tolerating at goal. Appreciate Disc Ruler Operator input. 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 Was on clonidine patch on admission which can slow conduction. He has an old PM in place. Old EKG in September showing sinus rhythm with CHB and junctional escape rhythm. Cardiology note from Sep reviewed: patient with asymptomatic AV dissociation. PM is indicated but they felt not clinically indicated given the patient's poor healthy. Has had this rhythm as far back as April 2023. EKG here showing sinus rhythm with high degree AV block, Rt BBB and marked T wave changes in the anterolateral and inferior leads. He was weaned off clonidine patch. He was on Eliquis at the time of last discharge but not listed as home med now. Consider resuming closer to discharge. Okay to stop tele. (4) A-fib: Code(s): I48.91 - Unspecified atrial fibrillation Status: Acute Assessment and Plan: As above (5) Hypernatremia: Code(s): E87.0 - Hyperosmolality and hypernatremia Status: Resolved Assessment and Plan: Patient brought in for abnormal labs. Na was 163. Chloride 122. Clinically he a ppeared dehydrated. He takes oral intake and suspect he is not taking enough to sustain himself. He was started on 1/2NS and sodium dropped to 160. Changed to D5W and Na improved to 148 Nephrology followed and managed sodium levels. Appreciate their input Sodium level is normal now. Resolved Follow (6) Chronic kidney disease, stage IV (severe): Code(s): N18.4 - Chronic kidney disease, stage 4 (severe) Status: Chronic Assessment and Plan: Patient with CKD, stage IV As above. (7) Acute UTI: Code(s): N39.0 - Urinary tract infection, site not specified Status: Acute Assessment and Plan: UA is consistent with UTI. UCx collected. Hx of ESBL EColi so Meropenem started. UCx growing proteus that is mostly pansensitive. Changed to Rocephin and he has since completed a coarse of treatment (8) Hypertension: Code(s): I10 - Essential (primary) hypertension Status: Chronic Assessment and Plan: Patient's blood pressure was reviewed on 07/18 BP was too well controlled so Norvasc stopped. Blood pressure mildly elevated at times. Continue Hydralazine only (9) Insulin dependent diabetes mellitus: Status: Chronic Assessment and Plan: A1c 5.6%. Glucose reviewed on 07/18 Glucose reasonably well controlled. Continue AccuCheks covering with sliding scale. Hypoglycemia protocol available as needed. Continue to monitor. Continue Lantus low dose at night. (10) Anemia: Code(s): D64.9 - Anemia, unspecified Status: Acute Assessment and Plan: Hgb dropped to 6.4 from 8.9. No evidence of acute blood loss. Suspect related to IV fluids and that he was hemoconcentrated. Iron studies consistent with anemia of chronic disease probably related to his renal failure Transfused and Hgb better in the 7-8 range Follow and transfuse as needed. (11) Dementia: Code(s): F03.90 - Unspecified dementia, unspecified severity, without behavioral disturbance, psychotic disturbance, mood disturbance, and anxiety Status: Acute Assessment and Plan: Patient is nonverbal. Not on treatment for dementia. 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 Suspect vascular dementia. Follow Plan DVT prophylaxis - SCDs. heparin SQ Full code by default. Unclear who the guardian is. Investigation ongoing. Custody paperwork completed Subjective Date/time seen: 07/18/24 10:56 Interval history: 73yo male with dementia, CKD, DM, AFib and HTN here for worsening renal failure. Patient is nonverbal and unable to provide hx. No issues per RN. Review of Systems Review of Systems: ROS unobtainable: Yes unobtainable due to mental status Exam Narrative: AF 97.4 153/40 68 16 100% ra Gen - NARD Chest - clear anteriorly to quiet respirations. nml RR. Old PM in the left upper chest CV - irregularly irregular. Tele showing AV dissociation and occasional jct rhythm Abd - Soft, ND, GTube in situ, binder in place - Lan secured draining clear yellow urine. Ext - No pedal edema Neuro - Alert. non verbal. Skin - Warm and dry. Objective Data Vital Signs Vital Signs: Vital Signs - 24 hr 07/17/24 12:00 07/17/24 14:00 07/17/24 16:00 Temperature 98.0 F Pulse Rate 65 65 74 Respiratory Rate 16 Blood Pressure 128/66 Pulse Oximetry 100 Oxygen Delivery 07/17/24 20:00 07/17/24 21:31 07/18/24 00:00 Temperature 97.6 F Pulse Rate 77 61 77 Respiratory Rate 14 Blood Pressure 100/78 Pulse Oximetry 100 Oxygen Delivery 07/18/24 04:00 07/18/24 05:24 07/18/24 08:00 Temperature 97.4 F L Pulse Rate 62 65 Respiratory Rate 16 Blood Pressure 153/40 H Pulse Oximetry 100 Oxygen Delivery Room Air 07/18/24 08:00 Temperature Pulse Rate 68 Respiratory Rate Blood Pressure Pulse Oximetry Oxygen Delivery Intake/Output Intake/Output: Intake & Output 07/15/24 07/16/24 07/17/24 07/18/24 23:59 23:59 23:59 23:59 Intake Total 686 250 870 Output Total 500 950 625 250 Balance 287 -072 -977 837 Meds/Results Medications: Active Medications Generic Name Dose Route Start Last Admin Trade Name Freq PRN Reason Stop Dose Admin Acetaminophen 650 mg 07/13/24 16:30 Acetaminophen 325 Mg Tablet FEED TUBE Q6H PRN Pain (Scale Score 1-3) Atorvastatin Calcium 20 mg 07/13/24 09:00 07/18/24 08:11 Atorvastatin 20 Mg Tablet FEED TUBE 20 mg DAILY URIAH Administration Dextrose 12.5 gm 07/03/24 23:35 Dextrose 50% 25 Gm/50 Ml Syringe IV PUSH PRN PRN Hypoglycemia Protocol Glucagon 1 mg 07/03/24 23:35 Glucagon For Inj 1 Mg Vial IM PRN PRN Hypoglycemia Protocol Glucose 15 gm 07/03/24 23:35 Glucose Oral Gel 15 Gm Of Glucse In 37.5 Gm Tube PO PRN PRN Hypoglycemia Protocol Heparin Sodium (Porcine) 5,000 units 07/13/24 21:00 07/18/24 08:11 Heparin Sodium 5,000 Units/Ml Vial SUB-Q 5,000 units Q12HR URIAH Administration Hydralazine HCl 50 mg 07/13/24 09:00 07/18/24 08:11 Hydralazine Hcl 50 Mg Tablet FEED TUBE 50 mg TID URIAH Administration Dextrose 1,000 mls @ 100 mls/hr 07/03/24 23:35 Dextrose 5% 1,000 Ml IVPB PRN PRN Hypoglycemia Protocol Insulin Glargine 6 units 07/04/24 21:00 07/17/24 20:13 Insulin Glargine (*Bkc) 100 Units/Ml SUB-Q 6 units HS URIAH Administration Sevelamer Carbonate 800 mg 07/15/24 08:00 07/18/24 08:11 Sevelamer Carbonate 800 Mg Tablet FEED TUBE 800 mg TIDWM URIAH Administration Radiology Results: ITS Impressions Head CT 07/02/24 06:32 IMPRESSION: 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 Renal Ultrasound 07/02/24 11:50 IMPRESSION: 1. Normal right kidney. 2. Left kidney and bladder not evaluated. Abdomen X-Ray 07/06/24 16:36 IMPRESSION: 1. Normal bowel gas pattern. Modified Barium Swallow 07/07/24 15:06 IMPRESSION: Pharyngeal dysphagia with laryngeal penetration and aspiration with multiple consistencies. Please correlate with speech pathologist findings and specific feeding recommendations. Labs Labs: Laboratory Results - last 24 hr 07/17/24 07/17/24 07/17/24 12:01 17:33 20:11 WBC RBC Hgb Hct MCV MCH MCHC RDW Plt Count MPV Sodium Potassium Chloride Carbon Dioxide Anion Gap BUN Creatinine Estim Creat Clear Calc Estimated GFR Glucose POC Capillary Glucose 157 H 191 H 187 H Calcium 07/17/24 07/18/24 07/18/24 23:40 05:38 06:28 WBC 11.1 H RBC 2.46 L Hgb 7.2 L Hct 23.4 L MCV 95.1 MCH 29.3 MCHC 30.8 L RDW 13.0 Plt Count 239 MPV 12.8 H Sodium 139 Potassium 3.5 Chloride 102 Carbon Dioxide 22 Anion Gap 15 H BUN 180 H Creatinine 9.20 H Estim Creat Clear Calc 6 Estimated GFR 7 L Glucose 174 H POC Capillary Glucose 188 H 167 H Calcium 7.6 L
--- NOTE | 2024-07-18 11:05 | PCNFU ---
Nutrition Follow-Up Complete: Suboptimal po intake related to appetite and feeding ability as evidenced by nursing report and charted intake Goal:PO intake greater than 50% of meals and supplements - No longer applicable New goal: Meet estimated needs Pt current nutrition is Nepro @ 40ml/hr, goal rate. Nutrition recommendation: continue with current plan of care Last recorded weight is 66 kg +5kg since admission Bowel Motility: No Bm recorded at this time, notified nursing Labs Reviewed: Hgb:7.2, HCT:23.4, GFR:7, BUN:180, Cr:9.2, Glu:167 Meds Noted: insulin Skin: no skin issues noted Additional Notes: Pt continues on Nepro tube feedings of 40ml/hr which is goal rate. 1584kcals, 71g protein. PT tolerating well. Wt increased some. Agree with orders Monitor intake, wt, labs. Follow up every Wednesday and Wednesday.
[2024-07-18] MEDS: SODIUM CHLORIDE 0.9% IV 1,000 ML 60 ML IV CONT (11:57)
--- NOTE | 2024-07-18 12:00 | P.PNNP_ITS ---
Progress Note: A&P Assessment and Plan (1) LINDSEY (acute kidney injury): Code(s): N17.9 - Acute kidney failure, unspecified Status: Acute Assessment and Plan: * as noted by markedly elevate BUN and creatinine (BUN 199 and creatinine 12.8) on admission * evaluation to date noted: * renal ultrasound with normal right kidney (unable to visualize bladder and left kidney) * rare urine eosinophils (difficult to interpret in context of possible UTI) * urine electrolytes non-prerenal * nephrotic range proteinuria noted * suspect LINDSEY multifactorial ATN: * volume depletion/dehydration * diuretic use prior to admission * urinary tract infection * possible progression of CKD * patient has severe dementia * the patient has cardiac issues. I had a lengthy talk with the surgical staff yesterday. Dr. Solomon consulted with anesthesia and they concluded that it is too risky to place a dialysis catheter. The patient eventually will need dialysis if we want to continue to be aggressive. Considering his mental status and considerable morbidity related to starting dialysis especially with the high risk of placing a catheter I feel the risks catheter plcement and dialysis far exceeds the benefit. I would support the patient getting comfort measures or at least doing what were doing and not doing more. * * two long talks with Sangeetha in the surgical division, and two conversations with Dr. Osuna concerning the above. Discussions took 25minutes apart from clinical activities. * (2) Chronic kidney disease, stage IV (severe): Code(s): N18.4 - Chronic kidney disease, stage 4 (severe) Status: Chronic Assessment and Plan: * baseline creatinine ~ 3.7 - 4.10mg/dl (based on last labs in Oct 2023) * due to a combo of diabetes, hypertension, and age-related change * Most likely end-stage renal disease (3) Hypernatremia: Code(s): E87.0 - Hyperosmolality and hypernatremia Status: Resolved Assessment and Plan: * resolved (4) Acute UTI: Code(s): N39.0 - Urinary tract infection, site not specified Status: Acute Assessment and Plan: * completed course of antibiotics (5) Hypertension: Code(s): I10 - Essential (primary) hypertension Status: Chronic Assessment and Plan: * Blood pressure 100s to 140s * diuretics on hold due to #2 (6) Anemia: Code(s): D64.9 - Anemia, unspecified Status: Acute Assessment and Plan: * noted drop in H/H by AM labs * suspect secondary to hemoconcentration from volume depletion * iron studies suggest chronic disease * Hemoglobin 7.2 He is on Epogen (7) Dementia: Code(s): F03.90 - Unspecified dementia, unspecified severity, without behavioral disturbance, psychotic disturbance, mood disturbance, and anxiety Status: Acute Assessment and Plan: * at baseline * continue supportive therapy (8) Insulin dependent diabetes mellitus: Status: Chronic Assessment and Plan: * follow accu-cheks * glycemic control per hospitalists Subjective Date/time seen: 07/18/24 12:00 Interval history: pt is awake, regards examiner. Exam Narrative: General: frail appearing male in NAD Heart: normal S1 and S2; no rub or gallop Lungs: clear Abdomen: soft, nontender, nondistended, positive bowel sounds Extremities: no edema; contracted posture Skin: No rash Objective Data Vital Signs Vital Signs: Vital Signs - 24 hr 07/17/24 14:00 07/17/24 16:00 07/17/24 20:00 Temperature 98.0 F Pulse Rate 65 74 77 Respiratory Rate 16 Blood Pressure 128/66 Pulse Oximetry 100 Oxygen Delivery 07/17/24 21:31 07/18/24 00:00 07/18/24 04:00 Temperature 97.6 F Pulse Rate 61 77 62 Respiratory Rate 14 Blood Pressure 100/78 Pulse Oximetry 100 Oxygen Delivery 07/18/24 05:24 07/18/24 08:00 07/18/24 08:00 Temperature 97.4 F L Pulse Rate 65 68 Respiratory Rate 16 Blood Pressure 153/40 H Pulse Oximetry 100 Oxygen Delivery Room Air Intake/Output Intake/Output: Intake & Output 07/15/24 07/16/24 07/17/24 07/18/24 23:59 23:59 23:59 23:59 Intake Total 686 250 870 Output Total 500 105 499 250 Balance 545 -373 -629 889 Meds/Results Medications: Active Medications Generic Name Dose Route Start Last Admin Trade Name Freq PRN Reason Stop Dose Admin Acetaminophen 650 mg 07/13/24 16:30 Acetaminophen 325 Mg Tablet FEED TUBE Q6H PRN Pain (Scale Score 1-3) Atorvastatin Calcium 20 mg 07/13/24 09:00 07/18/24 08:11 Atorvastatin 20 Mg Tablet FEED TUBE 20 mg DAILY URIAH Administration Dextrose 12.5 gm 07/03/24 23:35 Dextrose 50% 25 Gm/50 Ml Syringe IV PUSH PRN PRN Hypoglycemia Protocol Glucagon 1 mg 07/03/24 23:35 Glucagon For Inj 1 Mg Vial IM PRN PRN Hypoglycemia Protocol Glucose 15 gm 07/03/24 23:35 Glucose Oral Gel 15 Gm Of Glucse In 37.5 Gm Tube PO PRN PRN Hypoglycemia Protocol Heparin Sodium (Porcine) 5,000 units 07/13/24 21:00 07/18/24 08:11 Heparin Sodium 5,000 Units/Ml Vial SUB-Q 5,000 units Q12HR URIAH Administration Hydralazine HCl 50 mg 07/13/24 09:00 07/18/24 12:00 Hydralazine Hcl 50 Mg Tablet FEED TUBE 50 mg TID URIAH Administration Dextrose 1,000 mls @ 100 mls/hr 07/03/24 23:35 Dextrose 5% 1,000 Ml IVPB PRN PRN Hypoglycemia Protocol Sodium Chloride 1,000 mls @ 60 mls/hr 07/18/24 11:00 07/18/24 11:57 Normal Saline Iv IV CONT 07/19/24 03:39 60 mls/hr .[id number] URIAH Administration Insulin Glargine 6 units 07/04/24 21:00 07/17/24 20:13 Insulin Glargine (*Bkc) 100 Units/Ml SUB-Q 6 units HS URIAH Administration Sevelamer Carbonate 800 mg 07/15/24 08:00 07/18/24 11:58 Sevelamer Carbonate 800 Mg Tablet FEED TUBE 800 mg TIDWM URIAH Administration Radiology Results: ITS Impressions Head CT 07/02/24 06:32 IMPRESSION: 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 Renal Ultrasound 07/02/24 11:50 IMPRESSION: 1. Normal right kidney. 2. Left kidney and bladder not evaluated. Abdomen X-Ray 07/06/24 16:36 IMPRESSION: 1. Normal bowel gas pattern. Modified Barium Swallow 07/07/24 15:06 IMPRESSION: Pharyngeal dysphagia with laryngeal penetration and aspiration with multiple consistencies. Please correlate with speech pathologist findings and specific feeding recommendations. Labs Labs: Laboratory Results - last 24 hr 07/17/24 07/17/24 07/17/24 12:01 17:33 20:11 WBC RBC Hgb Hct MCV MCH MCHC RDW Plt Count MPV Sodium Potassium Chloride Carbon Dioxide Anion Gap BUN Creatinine Estim Creat Clear Calc Estimated GFR Glucose POC Capillary Glucose 157 H 191 H 187 H Calcium 07/17/24 07/18/24 07/18/24 23:40 05:38 06:28 WBC 11.1 H RBC 2.46 L Hgb 7.2 L Hct 23.4 L MCV 95.1 MCH 29.3 MCHC 30.8 L RDW 13.0 Plt Count 239 MPV 12.8 H Sodium 139 Potassium 3.5 Chloride 102 Carbon Dioxide 22 Anion Gap 15 H BUN 180 H Creatinine 9.20 H Estim Creat Clear Calc 6 Estimated GFR 7 L Glucose 174 H POC Capillary Glucose 188 H 167 H Calcium 7.6 L
[2024-07-18 12:05] LABS: Glucose Point of Care 219 mg/dl (65-105)
[2024-07-18 14:00] VITALS: BP 94/65; PULSE 65; RESP 20; TEMP 36.8; O2SAT 100
[2024-07-18 18:17] LABS: Glucose Point of Care 170 mg/dl (65-105)
[2024-07-18] MEDS: INSULIN GLARGINE (*BKC) 100 UNITS/ML 6 UNITS SUB-Q (20:00)
[2024-07-18 20:01] LABS: Glucose Point of Care 192 mg/dl (65-105)
[2024-07-18 21:25] VITALS: BP 159/63; PULSE 65; RESP 26; TEMP 36.5; O2SAT 100
[2024-07-19 00:42] LABS: Glucose Point of Care 200 mg/dl (65-105)
[2024-07-19 05:52] LABS: Glucose Point of Care 187 mg/dl (65-105)
[2024-07-19 06:00] VITALS: BP 149/57; PULSE 65; RESP 24; TEMP 36.9; O2SAT 100
[2024-07-19 06:46] LABS: Basophils Percent Auto 0.2 % (0.2-1.2); Eosinophils Absolute Auto 0.1 K/mm3 (0-0.3); Eosinophils Percent Auto 1.3 % (0-4.4); Hematocrit 24.2 % (42.0-52.0); Hemoglobin 7.5 g/dL (14.0-18.0); Immature Granulocyte Absolute 0.05 K/mm3 (0.00-0.031); Immature Granulocyte Percent A 0.5 % (0-0.5); Lymphocytes Absolute Auto 0.76 K/mm3 (0.9-3.2); Lymphocytes Percent Auto 7.1 % (18.3-44.2); Mean Corpuscular Hemoglobin 29.4 pg (26-34); Mean Corpuscular Volume 94.9 fl (80-100); Mean Platelet Volume 12.7 fl (7.4-10.4); Monocytes Absolute Auto 0.9 K/mm3 (0.1-0.6); Monocytes Percent Auto 8.5 % (2.6-8.5); Neutrophils Absolute Auto 8.9 K/mm3 (1.3-6.7); Neutrophils Percent Auto 82.4 % (45.5-73.1); Platelet Count Result 270 k/mm3 (150-375); Red Blood Count 2.55 M/mm3 (4.6-6.20); Red Cell Distribution Width 13.1 % (11.5-14.5); White Blood Count 10.8 K/mm3 (4.5-10.0)
[2024-07-19 07:24] LABS: Alanine Aminotransferase 38 U/L (6-50); Alkaline Phosphatase 104 U/L (38-126); Anion Gap 15 mmol/L (4-12); Aspartate Amino Transferase 54 U/L (17-59); Bilirubin,Total 0.2 mg/dL (0.2-1.3); Calcium 7.9 mg/dL (8.4-10.2); Carbon Dioxide 22 mmol/L (22-30); Chloride 103 mmol/L (98-107); Estimated CRCL calculation 6 ml/min; Estimated Glomerular Filt Rate 7; Glucose 195 mg/dL (65-110); Phosphorus 7.8 mg/dL (2.5-4.5); Potassium 3.5 mmol/L (3.4-5.0); Sodium 140 mmol/L (137-145)
[2024-07-19 07:32] LABS: Blood Urea Nitrogen 183 mg/dL (9-20)
[2024-07-19] MEDS: SEVELAMER CARBONATE 800 MG TABLET FEED TUBE ×3 (08:08→17:22)
[2024-07-19] MEDS: hydrALAZINE HCL 50 MG TABLET FEED TUBE ×3 (08:08→17:22)
[2024-07-19] MEDS: ATORVASTATIN 20 MG TABLET FEED TUBE (08:09)
[2024-07-19] MEDS: HEPARIN SODIUM 5,000 UNITS/ML VIAL 5000 UNITS SUB-Q ×2 (08:09→20:41)
--- NOTE | 2024-07-19 08:42 | P.PNIM_ITS ---
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 - Other specified conduction disorders Status: Acute (3) Aspiration of food: Code(s): T17.928A - Food in respiratory tract, part unspecified causing other injury, initial encounter; W44.F3XA - Food entering into or through a natural orifice, initial encounter Status: Acute (4) Insulin dependent diabetes mellitus: Status: Chronic (5) A-fib: Code(s): I48.91 - Unspecified atrial fibrillation Status: Acute (6) Hypertension: Code(s): I10 - Essential (primary) hypertension Status: Chronic (7) Anemia: Code(s): D64.9 - Anemia, unspecified Status: Acute Plan (1) Renal failure (ARF), acute on chronic: Code(s): N17.9 - Acute kidney failure, unspecified; N18.9 - Chronic kidney disease, unspecified Status: Acute Assessment and Plan: Patient has known CKD with Cr toward the end of his last hospitalization being 3.7-3.9 and stable for a few days. BUN was in the 60's. BUN 199 with Cr 12.8 on this admission. Suspect related to dehydration but Urine eos rare and Reymundo 80. FENa 8% with FEUrea 52% more consistent with ATN. Prot/Cr ratio 4.2gm c/w nephrotic range proteinuria as well. Renal US showing normal right kidney but left kidney and bladder unable to be visualized. LINDSEY probably related to poor oral intake, worsening CKD IV, diuretic therapy (Lasix and HCTZ that was TID), UTI. Renal function better with Cr at 9.1 and stable Potassium normal and serum bicarb at 22 (AG 16) Lan in place: Urine output was decreasing but better today: 1150->450->450->750->500->950-> 325mL so far today On TF and off IV fluids. Phosphate binder added per nephrology. Monitor UOP, electrolytes and renal function. Management per insulation machine operator. HD being considered but he is high risk surgical candidate due to his AV dissociation. Appreciate GenSurg input. Discussed with surgery and explained risks and that he would need Cards clearance. GenSurg has declined to place tunneled HD catheter at this time since patient is asymptomatic. Gave 1L NS without change in renal fxn. Repeat IVF. Nephrology to discuss with Thang about next steps. Cmo considered risks catheter placement and dialysis far exceeds the benefitsupport the patient getting comfort measures (2) Aspiration of food: Code(s): T17.928A - Food in respiratory tract, part unspecified causing other injury, initial encounter; W44.F3XA - Food entering into or through a natural orifice, initial encounter Status: Acute Assessment and Plan: Patient with poor oral intake related to dysphagia and/or inadequate feeding. Consulted speech therapy. MBS completed showing patient should be non-oral feeding. Patient did not allow NG placement so TPN started. GI consulted. G-tube planned as it was not safe for patient to eat. No guardian/POA to decide next course of action so decided to proceed with GTube placement that was done 07/12. He tolerated this well. TF started and tolerating at goal. Appreciate Rap Artist input. 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 Was on clonidine patch on admission which can slow conduction. He has an old PM in place. Old EKG in September showing sinus rhythm with CHB and junctional escape rhythm. Cardiology note from Sep reviewed: patient with asymptomatic AV dissociation. PM is indicated but they felt not clinically indicated given the patient's poor healthy. Has had this rhythm as far back as April 2023. EKG here showing sinus rhythm with high degree AV block, Rt BBB and marked T wave changes in the anterolateral and inferior leads. He was weaned off clonidine patch. He was on Eliquis at the time of last discharge but not listed as home med now. Consider resuming closer to discharge. Okay to stop tele. (4) A-fib: Code(s): I48.91 - Unspecified atrial fibrillation Status: Acute Assessment and Plan: As above (5) Hypernatremia: Code(s): E87.0 - Hyperosmolality and hypernatremia Status: Resolved Assessment and Plan: Patient brought in for abnormal labs. Na was 163. Chloride 122. Clinically he appeared dehydrated. He takes oral intake and suspect he is not taking enough to sustain himself. He was started on 1/2NS and sodium dropped to 160. Changed to D5W and Na improved to 148 Nephrology followed and managed sodium levels. Appreciate their input Sodium level is normal now. Resolved Follow (6) Chronic kidney disease, stage IV (severe): Code(s): N18.4 - Chronic kidney disease, stage 4 (severe) Status: Chronic Assessment and Plan: Patient with CKD, stage IV As above. (7) Acute UTI: Code(s): N39.0 - Urinary tract infection, site not specified Status: Acute Assessment and Plan: UA is consistent with UTI. UCx collected. Hx of ESBL EColi so Meropenem started. UCx growing proteus that is mostly pansensitive. Changed to Rocephin and he has since completed a coarse of treatment (8) Hypertension: Code(s): I10 - Essential (primary) hypertension Status: Chronic Assessment and Plan: Patient's blood pressure was reviewed on 07/18 BP was too well controlled so Norvasc stopped. Blood pressure mildly elevated at times. Continue Hydralazine only (9) Insulin dependent diabetes mellitus: Status: Chronic Assessment and Plan: A1c 5.6%. Glucose reviewed on 07/18 Glucose reasonably well controlled. Continue AccuCheks covering with sliding scale. Hypoglycemia protocol available as needed. Continue to monitor. Continue Lantus low dose at night. (10) Anemia: Code(s): D64.9 - Anemia, unspecified Status: Acute Assessment and Plan: Hgb dropped to 6.4 from 8.9. No evidence of acute blood loss. Suspect related to IV fluids and that he was hemoconcentrated. Iron studies consistent with anemia of chronic disease probably related to his renal failure Transfused and Hgb better in the 7-8 range Follow and transfuse as needed. (11) Dementia: Code(s): F03.90 - Unspecified dementia, unspecified severity, without behavioral disturbance, psychotic disturbance, mood disturbance, and anxiety Status: Acute Assessment and Plan: Patient is nonverbal. Not on treatment for dementia. 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 Suspect vascular dementia. Follow Plan DVT prophylaxis - SCDs. heparin SQ Full code by default. Unclear who the guardian is. Investigation ongoing. Custody paperwork completed Subjective Date/time seen: 07/19/24 08:42 Interval history: I saw examined the patient today. Patient is nonverbal, patient is lethargic, arousable. No obvious distress new we afebrile, blood pressure stable on the lower side, labs reviewed Exam Narrative: GENERAL: Lethargic in no acute distress. Well-nourished. - EYES: EOMI. Anicteric. - HENT: Moist mucous membranes. - LUNGS: Clear to auscultation bilateral ly, no wheezing, rhonchi, or rales. - CARDIOVASCULAR: Regular rate and rhyth m. No murmur. No JVD. - ABDOMEN: Soft, non-tender and non-dist ended. No palpable masses. NG tube in- situ, on tube feeding - EXTREMITIES: No edema. Peripheral puls es 2+. Non-tender. - NEUROLOGIC: Normal level, unable to f ollow verbal orders - PSYCHIATRIC: Awake, Alert and not orie nted x 3. - SKIN: No rashes or lesions. Warm. - LYMPH: No cervical lymphadenopathy. Objective Data Vital Signs Vital Signs: Vital Signs - 24 hr 07/18/24 14:00 07/18/24 20:00 07/18/24 21:25 Temperature 98.2 F 97.7 F Pulse Rate 65 65 Respiratory Rate 20 26 H Blood Pressure 94/65 L 159/63 H Pulse Oximetry 100 100 Oxygen Delivery Room Air 07/19/24 06:00 Temperature 98.5 F Pulse Rate 65 Respiratory Rate 24 H Blood Pressure 149/57 H Pulse Oximetry 100 Oxygen Delivery Intake/Output Intake/Output: Intake & Output 07/16/24 07/17/24 07/18/24 07/19/24 23:59 23:59 23:59 23:59 Intake Total 068 701 8627 Output Total 950 625 650 Balance -950 -256 685 4284 Meds/Results Medications: Active Medications Generic Name Dose Route Start Last Admin Trade Name Freq PRN Reason Stop Dose Admin Acetaminophen 650 mg 07/13/24 16:30 Acetaminophen 325 Mg Tablet FEED TUBE Q6H PRN Pain (Scale Score 1-3) Atorvastatin Calcium 20 mg 07/13/24 09:00 07/19/24 08:09 Atorvastatin 20 Mg Tablet FEED TUBE 20 mg DAILY URIAH Administration Dextrose 12.5 gm 07/03/24 23:35 Dextrose 50% 25 Gm/50 Ml Syringe IV PUSH PRN PRN Hypoglycemia Protocol Glucagon 1 mg 07/03/24 23:35 Glucagon For Inj 1 Mg Vial IM PRN PRN Hypoglycemia Protocol Glucose 15 gm 07/03/24 23:35 Glucose Oral Gel 15 Gm Of Glucse In 37.5 Gm Tube PO PRN PRN Hypoglycemia Protocol Heparin Sodium (Porcine) 5,000 units 07/13/24 21:00 07/19/24 08:09 Heparin Sodium 5,000 Units/Ml Vial SUB-Q 5,000 units Q12HR URIAH Administration Hydralazine HCl 50 mg 07/13/24 09:00 07/19/24 08:08 Hydralazine Hcl 50 Mg Tablet FEED TUBE 50 mg TID URIAH Administration Dextrose 1,000 mls @ 100 mls/hr 07/03/24 23:35 Dextrose 5% 1,000 Ml IVPB PRN PRN Hypoglycemia Protocol Insulin Glargine 6 units 07/04/24 21:00 07/18/24 20:00 Insulin Glargine (*Bkc) 100 Units/Ml SUB-Q 6 units HS URIAH Administration Sevelamer Carbonate 800 mg 07/15/24 08:00 07/19/24 08:08 Sevelamer Carbonate 800 Mg Tablet FEED TUBE 800 mg TIDWM URIAH Administration Radiology Results: ITS Impressions Head CT 07/02/24 06:32 IMPRESSION: 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 Renal Ultrasound 07/02/24 11:50 IMPRESSION: 1. Normal right kidney. 2. Left kidney and bladder not evaluated. Abdomen X-Ray 07/06/24 16:36 IMPRESSION: 1. Normal bowel gas pattern. Modified Barium Swallow 07/07/24 15:06 IMPRESSION: Pharyngeal dysphagia with laryngeal penetration and aspiration with multiple consistencies. Please correlate with speech pathologist findings and specific feeding recommendations. Labs Labs: Laboratory Results - last 24 hr 07/18/24 07/18/24 07/18/24 12:03 18:14 19:58 WBC RBC Hgb Hct MCV MCH MCHC RDW Plt Count MPV Immature Gran % (Auto) Neut % (Auto) Lymph % (Auto) [place] % (Auto) Eos % (Auto) Baso % (Auto) Lymph # (Auto) [place] # (Auto) Eos # (Auto) Baso # (Auto) Abs Immat Gran (auto) Absolute Neuts (auto) Absolute Nucleated RBC Nucleated RBC % Sodium Potassium Chloride Carbon Dioxide Anion Gap BUN Creatinine Estim Creat Clear Calc Estimated GFR Glucose POC Capillary Glucose 219 H 170 H 192 H Calcium Phosphorus Magnesium Total Bilirubin AST ALT Alkaline Phosphatase Total Protein Albumin 07/19/24 07/19/24 07/19/24 00:40 05:49 06:06 WBC 10.8 H RBC 2.55 L Hgb 7.5 L Hct 24.2 L MCV 94.9 MCH 29.4 MCHC 31.0 L RDW 13.1 Plt Count 270 MPV 12.7 H Immature Gran % (Auto) 0.5 Neut % (Auto) 82.4 H Lymph % (Auto) 7.1 L [place] % (Auto) 8.5 Eos % (Auto) 1.3 Baso % (Auto) 0.2 Lymph # (Auto) 0.76 L [place] # (Auto) 0.9 H Eos # (Auto) 0.1 Baso # (Auto) 0.0 Abs Immat Gran (auto) 0.05 H Absolute Neuts (auto) 8.9 H Absolute Nucleated RBC 0.000 Nucleated RBC % 0.0 Sodium 140 Potassium 3.5 Chloride 103 Carbon Dioxide 22 Anion Gap 15 H BUN 183 H Creatinine 9.00 H Estim Creat Clear Calc 6 Estimated GFR 7 L Glucose 195 H POC Capillary Glucose 200 H 187 H Calcium 7.9 L Phosphorus 7.8 H Magnesium 2.0 Total Bilirubin 0.2 AST 54 ALT 38 Alkaline Phosphatase 104 Total Protein 7.0 Albumin 3.0 L
--- NOTE | 2024-07-19 10:55 | P.PNNP_ITS ---
Progress Note: A&P Assessment and Plan (1) LINDSEY (acute kidney injury): Code(s): N17.9 - Acute kidney failure, unspecified Status: Acute Assessment and Plan: * as noted by markedly elevate BUN and creatinine (BUN 199 and creatinine 12.8) on admission * evaluation to date noted: * renal ultrasound with normal right kidney (unable to visualize bladder and left kidney) * rare urine eosinophils (difficult to interpret in context of possible UTI) * urine electrolytes non-prerenal * nephrotic range proteinuria noted * suspect LINDSEY multifactorial ATN: * volume depletion/dehydration * diuretic use prior to admission * urinary tract infection * possible progression of CKD * paln for tunneled HD catheter placement on hold given that he is at high risk for complications * considering his mental status and considerable morbidity related to starting dialysis especially with the high risk of placing a catheter in general, it would seem that the risks HD catheter placement as well as dialysis far exceeds the benefit. I would support the patient getting comfort measures or at least doing what were doing and not doing anything more... (2) Chronic kidney disease, stage IV (severe): Code(s): N18.4 - Chronic kidney disease, stage 4 (severe) Status: Chronic Assessment and Plan: * baseline creatinine ~ 3.7 - 4.10mg/dl (based on last labs in Oct 2023) * due to a combo of diabetes, hypertension, and age-related change * he has likely progressed to ESRD (3) Hypernatremia: Code(s): E87.0 - Hyperosmolality and hypernatremia Status: Resolved Assessment and Plan: * resolved (4) Acute UTI: Code(s): N39.0 - Urinary tract infection, site not specified Status: Acute Assessment and Plan: * completed course of antibiotics (5) Hypertension: Code(s): I10 - Essential (primary) hypertension Status: Chronic Assessment and Plan: * blood pressure relatively stable * diuretics on hold due to #2 (6) Anemia: Code(s): D64.9 - Anemia, unspecified Status: Acute Assessment and Plan: * noted drop in H/H by AM labs * suspect secondary to hemoconcentration from volume depletion * iron studies suggest chronic disease * on Retacrit while hospitalized (7) Dementia: Code(s): F03.90 - Unspecified dementia, unspecified severity, without behavioral disturbance, psychotic disturbance, mood disturbance, and anxiety Status: Acute Assessment and Plan: * at baseline * continue supportive therapy (8) Insulin dependent diabetes mellitus: Status: Chronic Assessment and Plan: * follow accu-cheks * glycemic control per hospitalists Not sure I have much more to add at this time -- will continue to follow in termittently. Subjective Date/time seen: 07/19/24 10:55 Interval history: Follow-up for acute kidney injury/acute renal failure on chronic kidney disease. Chart reviewed since last seen -- no significant change with regard to mental status -- remains non-verbal/non-communicated but in no apparent distress; no real significant improvement in renal function/creatinine although continues to make reasonable urine output; no plans for tunneled HD catheter due to his high risk status. Exam Narrative: General: frail appearing male in NAD Heart: normal S1 and S2; no rub or gallop Lungs: clear to auscultation Abdomen: soft, nontender, nondistended, positive bowel sounds Extremities: no edema; contracted posture Skin: no nodules Objective Data Vital Signs Vital Signs: Vital Signs Temp Pulse Resp BP Pulse Ox O2 Del Method 07/19/24 10:00 97.6 F 63 20 114/56 L 99 07/19/24 08:00 Room Air 07/19/24 06:00 98.5 F 65 24 H 149/57 H 100 07/18/24 21:25 97.7 F 65 26 H 159/63 H 100 07/18/24 20:00 Room Air Intake/Output Intake/Output: Intake & Output 07/16/24 07/17/24 07/18/24 07/19/24 23:59 23:59 23:59 23:59 Intake Total 316 610 4716 Output Total 950 625 650 600 Balance -950 -380 416 4636 Meds/Results Medications: Active Medications Generic Name Dose Route Start Last Admin Trade Name Freq PRN Reason Stop Dose Admin Acetaminophen 650 mg 07/13/24 16:30 Acetaminophen 325 Mg Tablet FEED TUBE Q6H PRN Pain (Scale Score 1-3) Atorvastatin Calcium 20 mg 07/13/24 09:00 07/19/24 08:09 Atorvastatin 20 Mg Tablet FEED TUBE 20 mg DAILY URIAH Administration Dextrose 12.5 gm 07/03/24 23:35 Dextrose 50% 25 Gm/50 Ml Syringe IV PUSH PRN PRN Hypoglycemia Protocol Glucagon 1 mg 07/03/24 23:35 Glucagon For Inj 1 Mg Vial IM PRN PRN Hypoglycemia Protocol Glucose 15 gm 07/03/24 23:35 Glucose Oral Gel 15 Gm Of Glucse In 37.5 Gm Tube PO PRN PRN Hypoglycemia Protocol Heparin Sodium (Porcine) 5,000 units 07/13/24 21:00 07/19/24 08:09 Heparin Sodium 5,000 Units/Ml Vial SUB-Q 5,000 units Q12HR URIAH Administration Hydralazine HCl 50 mg 07/13/24 09:00 07/19/24 17:22 Hydralazine Hcl 50 Mg Tablet FEED TUBE 50 mg TID URIAH Administration Dextrose 1,000 mls @ 100 mls/hr 07/03/24 23:35 Dextrose 5% 1,000 Ml IVPB PRN PRN Hypoglycemia Protocol Insulin Glargine 6 units 07/04/24 21:00 07/18/24 20:00 Insulin Glargine (*Bkc) 100 Units/Ml SUB-Q 6 units HS URIAH Administration Sevelamer Carbonate 800 mg 07/15/24 08:00 07/19/24 17:22 Sevelamer Carbonate 800 Mg Tablet FEED TUBE 800 mg TIDWM URIAH Administration Radiology Results: ITS Impressions Head CT 07/02/24 06:32 IMPRESSION: 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 Renal Ultrasound 07/02/24 11:50 IMPRESSION: 1. Normal right kidney. 2. Left kidney and bladder not evaluated. Abdomen X-Ray 07/06/24 16:36 IMPRESSION: 1. Normal bowel gas pattern. Modified Barium Swallow 07/07/24 15:06 IMPRESSION: Pharyngeal dysphagia with laryngeal penetration and aspiration with multiple consistencies. Please correlate with speech pathologist findings and specific feeding recommendations. Labs Labs: Laboratory Tests 07/19/24 06:06 07/19/24 06:06 Calcium 7.9 L Phosphorus 7.8 H Magnesium 2.0 Total Bilirubin 0.2 AST 54 ALT 38 Alkaline Phosphatase 104 Total Protein 7.0 Albumin 3.0 L
[2024-07-19 12:01] LABS: Glucose Point of Care 214 mg/dl (65-105)
[2024-07-19 14:00] VITALS: BP 114/56; PULSE 63; RESP 20; TEMP 36.4; O2SAT 99
[2024-07-19 18:25] LABS: Glucose Point of Care 224 mg/dl (65-105)
[2024-07-19] MEDS: INSULIN GLARGINE (*BKC) 100 UNITS/ML 6 UNITS SUB-Q (20:42)
[2024-07-19 21:03] LABS: Glucose Point of Care 220 mg/dl (65-105)
[2024-07-19 21:23] VITALS: BP 155/55; PULSE 59; RESP 16; TEMP 36.9; O2SAT 100
[2024-07-19 23:34] LABS: Glucose Point of Care 211 mg/dl (65-105)
[2024-07-20 05:04] VITALS: BP 167/64; PULSE 55; RESP 20; TEMP 36.6; O2SAT 100
[2024-07-20 05:44] LABS: Glucose Point of Care 219 mg/dl (65-105)
[2024-07-20] MEDS: HEPARIN SODIUM 5,000 UNITS/ML VIAL 5000 UNITS SUB-Q ×2 (08:37→22:15)
[2024-07-20] MEDS: SEVELAMER CARBONATE 800 MG TABLET FEED TUBE ×3 (08:37→17:07)
[2024-07-20] MEDS: hydrALAZINE HCL 50 MG TABLET FEED TUBE ×3 (08:37→17:07)
[2024-07-20] MEDS: ATORVASTATIN 20 MG TABLET FEED TUBE (08:37)
--- NOTE | 2024-07-20 09:22 | P.PNIM_ITS ---
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 - Other specified conduction disorders Status: Acute (3) Aspiration of food: Code(s): T17.928A - Food in respiratory tract, part unspecified causing other injury, initial encounter; W44.F3XA - Food entering into or through a natural orifice, initial encounter Status: Acute (4) Insulin dependent diabetes mellitus: Status: Chronic (5) A-fib: Code(s): I48.91 - Unspecified atrial fibrillation Status: Acute (6) Hypertension: Code(s): I10 - Essential (primary) hypertension Status: Chronic (7) Anemia: Code(s): D64.9 - Anemia, unspecified Status: Acute Plan (1) Renal failure (ARF), acute on chronic: Code(s): N17.9 - Acute kidney failure, unspecified; N18.9 - Chronic kidney disease, unspecified Status: Acute Assessment and Plan: Patient has known CKD with Cr toward the end of his last hospitalization being 3.7-3.9 and stable for a few days. BUN was in the 60's. BUN 199 with Cr 12.8 on this admission. Suspect related to dehydration but Urine eos rare and Reymundo 80. FENa 8% with FEUrea 52% more consistent with ATN. Prot/Cr ratio 4.2gm c/w nephrotic range proteinuria as well. Renal US showing normal right kidney but left kidney and bladder unable to be visualized. LINDSEY probably related to poor oral intake, worsening CKD IV, diuretic therapy (Lasix and HCTZ that was TID), UTI. Renal function better with Cr at 9.1 and stable Potassium normal and serum bicarb at 22 (AG 16) Lan in place: Urine output was decreasing but better today: 1150->450->450->750->500->950-> 325mL so far today On TF and off IV fluids. Phosphate binder added per nephrology. Monitor UOP, electrolytes and renal function. Management per technical service specialist. HD being considered but he is high risk surgical candidate due to his AV dissociation. Appreciate GenSurg input. Discussed with surgery and explained risks and that he would need Cards clearance. GenSurg has declined to place tunneled HD catheter at this time since patient is asymptomatic. Gave 1L NS without change in renal fxn. Repeat IVF. Nephrology to discuss with Thang about next steps. Business Quality Assurance Analyst considered risks catheter placement and dialysis far exceeds the benefitsupport the patient getting comfort measures (2) Aspiration of food: Code(s): T17.928A - Food in respiratory tract, part unspecified causing other injury, initial encounter; W44.F3XA - Food entering into or through a natural orifice, initial encounter Status: Acute Assessment and Plan: Patient with poor oral intake related to dysphagia and/or inadequate feeding. Consulted speech therapy. MBS completed showing patient should be non-oral feeding. Patient did not allow NG placement so TPN started. GI consulted. G-tube planned as it was not safe for patient to eat. No guardian/POA to decide next course of action so decided to proceed with GTube placement that was done 07/12. He tolerated this well. TF started and tolerating at goal. Appreciate Manager Budget input. 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 Was on clonidine patch on admission which can slow conduction. He has an old PM in place. Old EKG in September showing sinus rhythm with CHB and junctional escape rhythm. Cardiology note from Sep reviewed: patient with asymptomatic AV dissociation. PM is indicated but they felt not clinically indicated given the patient's poor healthy. Has had this rhythm as far back as April 2023. EKG here showing sinus rhythm with high degree AV block, Rt BBB and marked T wave changes in the anterolateral and inferior leads. He was weaned off clonidine patch. He was on Eliquis at the time of last discharge but not listed as home med now. Consider resuming closer to discharge. Okay to stop tele. (4) A-fib: Code(s): I48.91 - Unspecified atrial fibrillation Status: Acute Assessment and Plan: As above (5) Hypernatremia: Code(s): E87.0 - Hyperosmolality and hypernatremia Status: Resolved Assessment and Plan: Patient brought in for abnormal labs. Na was 163. Chloride 122. Clinically he appeared dehydrated. He takes oral intake and suspect he is not taking enough to sustain himself. He was started on 1/2NS and sodium dropped to 160. Changed to D5W and Na improved to 148 Nephrology followed and managed sodium levels. Appreciate their input Sodium level is normal now. Resolved Follow (6) Chronic kidney disease, stage IV (severe): Code(s): N18.4 - Chronic kidney disease, stage 4 (severe) Status: Chronic Assessment and Plan: Patient with CKD, stage IV As above. (7) Acute UTI: Code(s): N39.0 - Urinary tract infection, site not specified Status: Acute Assessment and Plan: UA is consistent with UTI. UCx collected. Hx of ESBL EColi so Meropenem started. UCx growing proteus that is mostly pansensitive. Changed to Rocephin and he has since completed treatment (8) Hypertension: Code(s): I10 - Essential (primary) hypertension Status: Chronic Assessment and Plan: Patient's blood pressure was reviewed on 07/18 BP was too well controlled so Norvasc stopped. Blood pressure mildly elevated at times. Continue Hydralazine only (9) Insulin dependent diabetes mellitus: Status: Chronic Assessment and Plan: A1c 5.6%. Glucose reviewed on 07/18 Glucose reasonably well controlled. Continue AccuCheks covering with sliding scale. Hypoglycemia protocol available as needed. Continue to monitor. Continue Lantus low dose at night. (10) Anemia: Code(s): D64.9 - Anemia, unspecified Status: Acute Assessment and Plan: Hgb dropped to 6.4 from 8.9. No evidence of acute blood loss. Suspect related to IV fluids and that he was hemoconcentrated. Iron studies consistent with anemia of chronic disease probably related to his renal failure Transfused and Hgb better in the 7-8 range Follow and transfuse as needed. Dementia: Code(s): F03.90 - Unspecified dementia, unspecified severity, without behavioral disturbance, psychotic disturbance, mood disturbance, and anxiety Status: Acute Assessment and Plan: Patient is nonverbal. Not on treatment for dementia. 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 Suspect vascular dementia. Follow Patient still needs continue hospitalization for the treatment above DVT prophylaxis - SCDs. heparin SQ Full code by default. Unclear who the guardian is. Investigation ongoing. Custody paperwork completed Subjective Date/time seen: 07/20/24 09:22 Interval history: I saw examined the patient today. Patient has no new issue even overnight. patient is lethargic, arousable. No obvious distress new we afebrile, blood pressure stable Exam Narrative: GENERAL: Lethargic in no acute distress. Well-nourished. - EYES: EOMI. Anicteric. - HENT: Moist mucous membranes. - LUNGS: Clear to auscultation bilateral ly, no wheezing, rhonchi, or rales. - CARDIOVASCULAR: Regular rate and rhyth m. No murmur. No JVD. - ABDOMEN: Soft, non-tender and non-dist ended. No palpable masses. NG tube in- situ, on tube feeding - EXTREMITIES: No edema. Peripheral puls es 2+. Non-tender. - NEUROLOGIC: Normal level, unable to f ollow verbal orders - PSYCHIATRIC: Awake, Alert and not orie nted x 3. - SKIN: No rashes or lesions. Warm. - LYMPH: No cervical lymphadenopathy. Objective Data Vital Signs Vital Signs: Vital Signs - 24 hr 07/19/24 14:00 07/19/24 21:23 07/19/24 20:00 Temperature 97.6 F 98.5 F Pulse Rate 63 59 L Respiratory Rate 20 16 Blood Pressure 114/56 L 155/55 H Pulse Oximetry 99 100 Oxygen Delivery Room Air 07/20/24 05:04 Temperature 97.8 F Pulse Rate 55 L Respiratory Rate 20 Blood Pressure 167/64 H Pulse Oximetry 100 Oxygen Delivery Intake/Output Intake/Output: Intake & Output 07/17/24 07/18/24 07/19/24 07/20/24 23:59 23:59 23:59 23:59 Intake Total 924 600 6559 1645 Output Total 625 650 600 350 Balance -213 375 5548 1295 Meds/Results Medications: Active Medications Generic Name Dose Route Start Last Admin Trade Name Freq PRN Reason Stop Dose Admin Acetaminophen 650 mg 07/13/24 16:30 Acetaminophen 325 Mg Tablet FEED TUBE Q6H PRN Pain (Scale Score 1-3) Atorvastatin Calcium 20 mg 07/13/24 09:00 07/20/24 08:37 Atorvastatin 20 Mg Tablet FEED TUBE 20 mg DAILY URIAH Administration Dextrose 12.5 gm 07/03/24 23:35 Dextrose 50% 25 Gm/50 Ml Syringe IV PUSH PRN PRN Hypoglycemia Protocol Glucagon 1 mg 07/03/24 23:35 Glucagon For Inj 1 Mg Vial IM PRN PRN Hypoglycemia Protocol Glucose 15 gm 07/03/24 23:35 Glucose Oral Gel 15 Gm Of Glucse In 37.5 Gm Tube PO PRN PRN Hypoglycemia Protocol Heparin Sodium (Porcine) 5,000 units 07/13/24 21:00 07/20/24 08:37 Heparin Sodium 5,000 Units/Ml Vial SUB-Q 5,000 units Q12HR URIAH Administration Hydralazine HCl 50 mg 07/13/24 09:00 07/20/24 08:37 Hydralazine Hcl 50 Mg Tablet FEED TUBE 50 mg TID URIAH Administration Dextrose 1,000 mls @ 100 mls/hr 07/03/24 23:35 Dextrose 5% 1,000 Ml IVPB PRN PRN Hypoglycemia Protocol Insulin Glargine 6 units 07/04/24 21:00 07/19/24 20:42 Insulin Glargine (*Bkc) 100 Units/Ml SUB-Q 6 units HS URIAH Administration Sevelamer Carbonate 800 mg 07/15/24 08:00 07/20/24 08:37 Sevelamer Carbonate 800 Mg Tablet FEED TUBE 800 mg TIDWM URIAH Administration Radiology Results: ITS Impressions Head CT 07/02/24 06:32 IMPRESSION: 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 Renal Ultrasound 07/02/24 11:50 IMPRESSION: 1. Normal right kidney. 2. Left kidney and bladder not evaluated. Abdomen X-Ray 07/06/24 16:36 IMPRESSION: 1. Normal bowel gas pattern. Modified Barium Swallow 07/07/24 15:06 IMPRESSION: Pharyngeal dysphagia with laryngeal penetration and aspiration with multiple consistencies. Please correlate with speech pathologist findings and specific feeding recommendations. Labs Labs: Laboratory Results - last 24 hr 07/19/24 07/19/24 07/19/24 11:58 18:23 20:48 POC Capillary Glucose 214 H 224 H 220 H 07/19/24 07/20/24 23:26 05:40 POC Capillary Glucose 211 H 219 H
[2024-07-20 12:06] LABS: Glucose Point of Care 213 mg/dl (65-105)
[2024-07-20 14:00] VITALS: BP 149/75; PULSE 70; RESP 22; TEMP 37.6; O2SAT 100
[2024-07-20 17:45] LABS: Glucose Point of Care 196 mg/dl (65-105)
[2024-07-20 20:30] VITALS: BP 149/66; PULSE 57; RESP 14; TEMP 36.9; O2SAT 100
[2024-07-20] MEDS: INSULIN GLARGINE (*BKC) 100 UNITS/ML 6 UNITS SUB-Q (22:12)
[2024-07-20 23:27] LABS: Glucose Point of Care 201 mg/dl (65-105)
[2024-07-21 05:05] VITALS: BP 156/83; PULSE 70; RESP 24; TEMP 36.8; O2SAT 100
[2024-07-21 05:17] LABS: Glucose Point of Care 182 mg/dl (65-105)
--- NOTE | 2024-07-21 10:15 | PCNFU ---
Nutrition Follow-Up Complete: Suboptimal po intake related to appetite and feeding ability as evidenced by nursing report and charted intake Goal:PO intake greater than 50% of meals and supplements - No longer applicable New goal: Meet estimated needs Pt current nutrition is Nepro @ 40ml/hr, goal rate. Nutrition recommendation: continue with current plan of care Last recorded weight is 68.2 kg +7kg since admission Bowel Motility: +1 BM 07/20 Labs Reviewed: No new labs since 07/19/24. Glu 182 Meds Noted: insulin Skin: no skin issues noted Additional Notes: Pt continues on Nepro tube feedings of 40ml/hr which is goal rate. 1584kcals, 71g protein. PT tolerating well. Wt increased some. Agree with orders Monitor intake, wt, labs. Follow up every Wednesday and Wednesday.
[2024-07-21] MEDS: HEPARIN SODIUM 5,000 UNITS/ML VIAL 5000 UNITS SUB-Q (10:42)
[2024-07-21] MEDS: SEVELAMER CARBONATE 800 MG TABLET FEED TUBE ×3 (10:42→18:15)
[2024-07-21] MEDS: hydrALAZINE HCL 50 MG TABLET FEED TUBE ×3 (10:42→18:15)
[2024-07-21] MEDS: ATORVASTATIN 20 MG TABLET FEED TUBE (10:42)
[2024-07-21 11:59] LABS: Glucose Point of Care 196 mg/dl (65-105)
[2024-07-21 12:59] LABS: Basophils Percent Auto 0.2 % (0.2-1.2); Eosinophils Absolute Auto 0.1 K/mm3 (0-0.3); Eosinophils Percent Auto 1.3 % (0-4.4); Hemoglobin 7.2 g/dL (14.0-18.0); Immature Granulocyte Absolute 0.03 K/mm3 (0.00-0.031); Immature Granulocyte Percent A 0.4 % (0-0.5); Lymphocytes Absolute Auto 0.83 K/mm3 (0.9-3.2); Lymphocytes Percent Auto 9.7 % (18.3-44.2); Mean Corpuscular HGB Conc 31.3 g/dl (32-36); Mean Corpuscular Hemoglobin 29.9 pg (26-34); Mean Corpuscular Volume 95.4 fl (80-100); Mean Platelet Volume 11.1 fl (7.4-10.4); Monocytes Absolute Auto 0.9 K/mm3 (0.1-0.6); Monocytes Percent Auto 10.1 % (2.6-8.5); Neutrophils Absolute Auto 6.7 K/mm3 (1.3-6.7); Neutrophils Percent Auto 78.3 % (45.5-73.1); Platelet Count Result 300 k/mm3 (150-375); Red Blood Count 2.41 M/mm3 (4.6-6.20); Red Cell Distribution Width 13.5 % (11.5-14.5); White Blood Count 8.5 K/mm3 (4.5-10.0)
[2024-07-21 13:20] LABS: Alanine Aminotransferase 138 U/L (6-50); Albumin Level 2.9 g/dL (3.5-5.1); Alkaline Phosphatase 124 U/L (38-126); Anion Gap 14 mmol/L (4-12); Aspartate Amino Transferase 292 U/L (17-59); Bilirubin,Total 0.2 mg/dL (0.2-1.3); Calcium 8.3 mg/dL (8.4-10.2); Carbon Dioxide 23 mmol/L (22-30); Chloride 103 mmol/L (98-107); Estimated CRCL calculation 7 ml/min; Estimated Glomerular Filt Rate 7; Glucose 198 mg/dL (65-110); Magnesium 2.2 mg/dL (1.6-2.3); Potassium 3.6 mmol/L (3.4-5.0); Sodium 140 mmol/L (137-145)
[2024-07-21 13:46] LABS: Blood Urea Nitrogen 198 mg/dL (9-20)
[2024-07-21 14:00] VITALS: BP 155/59; PULSE 68; RESP 16; TEMP 36.5; O2SAT 92
--- NOTE | 2024-07-21 14:33 | P.DS_ITS ---
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 - Other specified conduction disorders Status: Acute (3) Aspiration of food: Code(s): T17.928A - Food in respiratory tract, part unspecified causing other injury, initial encounter; W44.F3XA - Food entering into or through a natural orifice, initial encounter Status: Acute (4) Insulin dependent diabetes mellitus: Status: Chronic (5) A-fib: Code(s): I48.91 - Unspecified atrial fibrillation Status: Acute (6) Hypertension: Code(s): I10 - Essential (primary) hypertension Status: Chronic (7) Anemia: Code(s): D64.9 - Anemia, unspecified Status: Acute DS: Summary Hospital Course Hospital Course: # Renal failure (ARF), acute on chronic: Patient has known CKD with Cr toward the end of his last hospitalization being 3.7-3.9 and stable for a few days. BUN was in the 60's. BUN 199 with Cr 12.8 on this admission. Suspect related to dehydration but Urine eos rare and Reymundo 80. FENa 8% with FEUrea 52% more consistent with ATN. Prot/Cr ratio 4.2gm c/w nephrotic range proteinuria as well. Renal US showing normal right kidney but left kidney and bladder unable to be visualized. LINDSEY probably related to poor oral intake, worsening CKD IV, diuretic therapy (Lasix and HCTZ that was TID), UTI. Renal function better to some extent but still elevated and remains stable. Potassium normal and serum bicarb at 22 (AG 16) Lan in place: Urine output monitor throughout the hospital stay On TF and off IV fluids. Phosphate binder added per nephrology. Monitor UOP, electrolytes and renal function. Management per test deck supervisor. HD being considered but he is high risk surgical candidate due to his AV dissociation. Appreciate GenSurg input. Discussed with surgery and explained risks and that he would need Cards clearance. GenSurg has declined to place tunneled HD catheter at this time since patient is asymptomatic. Nephrology to discuss with GenSurg about next steps. Insulation Worker Furnace Installer considered risks catheter placement and dialysis far exceeds the benefit support the patient getting comfort measures The decision of this however could not be made as patient is non decisional and does not have any decision maker. Nursing facility in process of getting guardianship for the patient Nevertheless patient's quality of life has been poor with higher risk of any further treatment strategies which includes catheter placement and initiation of dialysis. He will continue to follow-up with nephrology as outpatient basis. # Aspiration of food/dysphagia: Patient with poor oral intake related to dysphagia and/or inadequate feeding. Consulted speech therapy. MBS completed showing patient should be non-oral feeding. Patient did not allow NG placement so TPN started. GI consulted. G-tube planned as it was not safe for patient to eat. No guardian/POA to decide next course of action so decided to proceed with GTube placement that was done 07/12. He tolerated this well. TF started and tolerating at goal. Appreciate Scourer input. # AV dissociation: Tele reviewed showing possible complete heart block. Was on clonidine patch on admission which can slow conduction. He has an old PM in place. Old EKG in September showing sinus rhythm with CHB and junctional escape rhythm. Cardiology note from Sep reviewed: patient with asymptomatic AV dissociation. PM is indicated but they felt not clinically indicated given the patient's poor healthy. Has had this rhythm as far back as April 2023. EKG here showing sinus rhythm with high degree AV block, Rt BBB and marked T wave changes in the anterolateral and inferior leads. He was weaned off clonidine patch. He was on Eliquis at the time of last discharge but not listed as home med now. Consider resuming closer to discharge. # A-fib: As above # Hypernatremia: Patient brought in for abnormal labs. Na was 163. Chloride 122. Clinically he appeared dehydrated. He takes oral intake and suspect he is not taking enough to sustain himself. He was started on 1/2NS and sodium dropped to 160. Changed to D5W and Na improved to 148 Nephrology followed and managed sodium levels. Appreciate their input Sodium level is normal now. Resolved Follow # Chronic kidney disease, stage IV (severe): Patient with CKD, stage IV As above. # Acute UTI: UA is consistent with UTI. UCx collected. Hx of ESBL EColi so Meropenem started. UCx growing proteus that is mostly pansensitive. Changed to Rocephin and he has since completed treatment # Hypertension: BP was too well controlled so Norvasc stopped. Blood pressure mildly elevated at times. Continue Hydralazine only # Insulin dependent diabetes mellitus: Glucose reasonably well controlled. A1c 5.6 Continue AccuCheks covering with sliding scale. Hypoglycemia protocol available as needed. Continue to monitor. Continue Lantus low dose at night. # Anemia: Hgb dropped to 6.4 from 8.9. No evidence of acute blood loss. Suspect related to IV fluids and that he was hemoconcentrated. Iron studies consistent with anemia of chronic disease probably related to his renal failure Transfused and Hgb better in the 7-8 range Follow and transfuse as needed. # Dementia: Patient is nonverbal. Not on treatment for dementia. 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 Suspect vascular dementia. Follow # DVT prophylaxis - SCDs. heparin SQ # Full code by default. Unclear who the guardian is. Investigation ongoing. Custody paperwork completed and in process Time Spent with Patient Time attestation: Total time spent providing and/or coordinating discharge services: 45 minutes Exam Narrative: GENERAL: Alert nonverbal no acute distress. Well-nourished. - EYES: EOMI. Anicteric. - HENT: Moist mucous membranes. - LUNGS: Clear to auscultation bilateral ly, no wheezing, rhonchi, or rales. - CARDIOVASCULAR: Regular rate and rhyth m. No murmur. No JVD. - ABDOMEN: Soft, non-tender and non-dist ended. No palpable masses. NG tube in- situ, on tube feeding - EXTREMITIES: No edema. Peripheral puls es 2+. Non-tender. - NEUROLOGIC: Normal level, unable to f ollow verbal orders - PSYCHIATRIC: Awake, Alert and not orie nted x 3. - SKIN: No rashes or lesions. Warm. - LYMPH: No cervical lymphadenopathy. DS: Data Data Completed and Pending Labs on day of discharge: Labs from last 24 hours 07/21/24 07/21/24 07/21/24 12:51 11:56 05:13 WBC 8.5 RBC 2.41 L Hgb 7.2 L Hct 23.0 L MCV 95.4 MCH 29.9 MCHC 31.3 L RDW 13.5 Plt Count 300 MPV 11.1 H Immature Gran % (Auto) 0.4 Neut % (Auto) 78.3 H Lymph % (Auto) 9.7 L [place] % (Auto) 10.1 H Eos % (Auto) 1.3 Baso % (Auto) 0.2 Lymph # (Auto) 0.83 L [place] # (Auto) 0.9 H Eos # (Auto) 0.1 Baso # (Auto) 0.0 Abs Immat Gran (auto) 0.03 Absolute Neuts (auto) 6.7 Absolute Nucleated RBC 0.000 Nucleated RBC % 0.0 Sodium 140 Potassium 3.6 Chloride 103 Carbon Dioxide 23 Anion Gap 14 H BUN 198 H D Creatinine 8.70 H Estim Creat Clear Calc 7 Estimated GFR 7 L Glucose 198 H POC Capillary Glucose 196 H 182 H Calcium 8.3 L Magnesium 2.2 Total Bilirubin 0.2 AST 292 H ALT 138 H Alkaline Phosphatase 124 Total Protein 7.0 Albumin 2.9 L 07/20/24 07/20/24 23:23 17:41 WBC RBC Hgb Hct MCV MCH MCHC RDW Plt Count MPV Immature Gran % (Auto) Neut % (Auto) Lymph % (Auto) [place] % (Auto) Eos % (Auto) Baso % (Auto) Lymph # (Auto) [place] # (Auto) Eos # (Auto) Baso # (Auto) Abs Immat Gran (auto) Absolute Neuts (auto) Absolute Nucleated RBC Nucleated RBC % Sodium Potassium Chloride Carbon Dioxide Anion Gap BUN Creatinine Estim Creat Clear Calc Estimated GFR Glucose POC Capillary Glucose 201 H 196 H Calcium Magnesium Total Bilirubin AST ALT Alkaline Phosphatase Total Protein Albumin Imaging Radiologist's impression: ITS Impressions Head CT 07/02/24 06:32 IMPRESSION: 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 Renal Ultrasound 07/02/24 11:50 IMPRESSION: 1. Normal right kidney. 2. Left kidney and bladder not evaluated. Abdomen X-Ray 07/06/24 16:36 IMPRESSION: 1. Normal bowel gas pattern. Modified Barium Swallow 07/07/24 15:06 IMPRESSION: Pharyngeal dysphagia with laryngeal penetration and aspiration with multiple consistencies. Please correlate with speech pathologist findings and specific feeding recommendations. Discharge Plan Discharge Attending physician on discharge: Bari Brooke Consulting providers: Ravi Zhang; Bashir Toribio; Miranda Solomon Discharging Clinician: Bari Brooke Anticipated Discharge Date/Time: 07/21/24 14:39 Patient Disposition: SNF Activity: as tolerated Diet: NPO, tube feeding and other - see discharge instructions Discharge Instructions: Continue Nepro at 40 mL per hour Water flushes 150 mL every 4 hours Routine G-tube care Patient Instructions: Chronic Kidney Disease (GEN), Chronic Kidney Disease Diet (GEN), Urinary Tract Infection in Older Adults (GEN) Stand Alone Forms: General Discharge Information, [facility] Discharge Follow-up/Referrals: Allison,MD Deacon [Primary Care Provider] - 1 Week Ravi Zhang MD [Physician] - 4 Weeks Discharge Medications: New acetaminophen 325 mg Tablet 650 mg feeding tube Q6H PRN (Reason: Pain (Scale Score 1-3)) Qty: 30 0RF insulin glargine [Lantus U-100 Insulin] 100 unit/mL Solution 6 unit subcut HS Qty: 30 0RF atorvastatin 20 mg Tablet 20 mg feeding tube DAILY Qty: 30 0RF hydralazine 50 mg Tablet 50 mg feeding tube TID Qty: 90 0RF sevelamer carbonate [Renvela] 800 mg Tablet 800 mg feeding tube TIDWM Qty: 90 0RF Continued Glucagon Emergency Kit (human) 1 mg recon soln 1 mg IM PRN PRN (Reason: Hypoglycemia) Humulin R Regular U-100 Insuln 100 unit/mL Solution subcut ACHS Rx Instructions: Sliding Scale: Blood Sugar less than 80, call Blood Sugar 151 - 200, give 3 units Blood Sugar 201 - 250, give 5 units Blood Sugar 251 - 300, give 7 units Blood Sugar 301 - 350, give 9 units If Blood Sugar is greater than 350, call Discontinued atorvastatin 20 mg tablet 20 mg PO DAILY clonidine 0.3 mg/24 hr patch weekly 0.3 mg transdermal DAILY Rx Instructions: wednesday hydrochlorothiazide 25 mg tablet 25 mg PO TID hydralazine 50 mg Tablet 100 mg PO TID Qty: 90 0RF ferrous sulfate 325 mg (65 mg iron) Tablet 325 mg PO BID acetaminophen 325 mg Tablet 650 mg PO Q6H PRN (Reason: Pain (Scale Score 1-3)) dextrose [Glutose-15] 40 % Gel 15 g PO PRN PRN (Reason: Hypoglycemia) Qty: 10 0RF ascorbic acid (vitamin C) 1,000 mg Tablet 1 g PO DAILY furosemide 20 mg Tablet 20 mg PO DAILY docosahexaenoic acid-epa 120-180 mg Capsule 1 cap PO DAILY insulin glargine-yfgn 100 unit/mL (3 mL) insulin pen 40 unit SUBCUT HS Other Ambulatory Orders: Complete Blood Count with Diff (Routine) Timeframe: 1 Week Location: Determined by Patient Ordered By: Bari Brooke Comprehensive Metabolic Panel (Routine) Timeframe: 1 Week Location: Determined by Patient Ordered By: Bari Brooke Date of admission: 07/02/24 02:27 Primary Care Provider: NgoziDeacon Admitting Provider: Jennyfer Plasencia Attending physician on admission: Jennyfer Plasencia Condition: Stable
--- NOTE | 2024-07-21 15:36 | PC.NURSE ---
report called to receiving nurse, Eliana PONCE, at [facility] @ [phone] 07/21/24.
[2024-07-21 17:50] LABS: Glucose Point of Care 217 mg/dl (65-105)
[2024-07-21] MEDS: INSULIN ASPART (*BKC) 100 UNITS/ML SUB-Q (18:15)
[2024-07-21] MEDS: INSULIN GLARGINE (*BKC) 100 UNITS/ML 6 UNITS SUB-Q (19:53)
[2024-07-21 20:30] VITALS: BP 152/76; PULSE 88; RESP 22; TEMP 37.1; O2SAT 100
== END 2024-07-21 22:00 | DRG 689 ==
LOC: ANHED 07-02 02:33 → ANHIMU 07-02 02:45 → ANH3MEDSUR 07-21 14:40 → ANH2MED 07-24 09:08 → ANH3MEDSUR 07-24 09:08 → ANHIMU 07-24 09:08
PROVIDERS: Internal Medicine; Internal Medicine Gastroenterology; Internal Medicine Nephrology; Admitting Provider General Practice; Emergency Provider Student in an Organized Health Care Education/Training Program; PCP Internal Medicine; Visit Provider Internal Medicine
PROC: 0DH63UZ Insertion of Feeding Device into Stomach, Percutaneous Approach (ICD-10-PCS; CPT 43246; principal; 2024-07-12 10:00)
DX: N39.0 Urinary tract infection, site not specified (principal); N17.0 Acute kidney failure with tubular necrosis; N18.4 Chronic kidney disease, stage 4 (severe); I45.89 Other specified conduction disorders; E87.0 Hyperosmolality and hypernatremia; E46 Unspecified protein-calorie malnutrition; T17.928A Food in respiratory tract, part unspecified causing other injury, initial encounter; W44.F3XA Food entering into or through a natural orifice, initial encounter; E11.22 Type 2 diabetes mellitus with diabetic chronic kidney disease; B96.4 Proteus (mirabilis) (morganii) as the cause of diseases classified elsewhere; D63.1 Anemia in chronic kidney disease; E86.0 Dehydration; F03.90 Unspecified dementia, unspecified severity, without behavioral disturbance, psychotic disturbance, mood disturbance, and anxiety; I12.9 Hypertensive chronic kidney disease with stage 1 through stage 4 chronic kidney disease, or unspecified chronic kidney disease; I48.91 Unspecified atrial fibrillation; I44.39 Other atrioventricular block; R13.10 Dysphagia, unspecified; R47.9 Unspecified speech disturbances; R63.0 Anorexia; R11.2 Nausea with vomiting, unspecified; Z79.4 Long term (current) use of insulin; Z95.0 Presence of cardiac pacemaker
CPT/HCPCS: 36415; 36430; 43246; 70450; 74018; 76775; 80048; 80053; 80069; 81001; 82570; 82607; 82728; 82746; 82948; 83036; 83540; 83550; 83605; 83690; 83735; 83930; 83935; 84100; 84156; 84295; 84300; 84466; 84478; 84540; 85025; 85027; 85055; 85610; 85730; 85999; 86850; 86900; 86901; 86923; 87086; 87186; 92610; 92611; 93005; 96365; 99285; A9270; J0690; J0696; J1644; J1815; J2003; J2185; J2704; J3475; J3480; J7030; J7050; J7070; J7120; P9016; Q5105

== ENCOUNTER 2024-07-28 21:12 | Inpatient (IN) | payer MEDICARE, MEDICAID, SELFPAY ==
--- NOTE | ~2024-07-28 | XR_ITS ---
XR chest 1V portable DATE: 07/30/2024 10:33 INDICATION: Leukocytosis. Aspiration. TECHNIQUE: Portable upright AP chest on 07/30/2024 at 1031 hours COMPARISON: 10/01/2023 AP chest FINDINGS: Left pacemaker device, leads unchanged in position since 10/01/2023. NG tube in stomach. Heart size is borderline, not optimally evaluated on AP projection because of magnification. Is aorti c arch calcification, mild aortic unfolding. No hilar or mediastinal enlargement is evident. Mild patchy right and left lower lobe infiltrates and/or atelectasis are suggested, right greater kurt n left. Bilateral glenohumeral osteoarthritis. Probable right rotator cuff atrophy. IMPRESSION: Mild bilateral lower lobe infiltrate and/or atelectasis, right greater than left Reviewed, dictated and finalized at location A. IST ESCORT IMPRESSION: Mild bilateral lower lobe infiltrate and/or atelectasis, right grea ter than left
--- NOTE | ~2024-07-28 | US_ITS ---
US venous doppler UE DATE: 08/05/2024 12:48 INDICATION: Bilateral upper extremity edema TECHNIQUE: Real-time and color flow imaging and Doppler analysis of the veins supplying the upper ext remities COMPARISON: None FINDINGS: Right upper extremity: There is normal venous flow in the right internal jugular, subclavian, axillary, brachial and basilic as well as radial and ulnar veins. There is thrombosis involving the right cephalic vein. Left upper extremity: There is normal flow in left internal jugular vein. Thrombus is identified within the left subclavian vein. There is normal flow in the left axillary, brachial, basilic, radial and ulnar veins. The left cephal ic vein is not visualized. IMPRESSION: Right cephalic vein thrombosis Thrombus within left subclavian vein Reviewed, dictated and finalized at Location A. Reviewed, dictated and finalized at location A. ACTOR FILLER
--- NOTE | ~2024-07-28 | XR_ITS ---
XR chest 1V portable DATE: 08/03/2024 23:45 INDICATION: Coarse breath sounds TECHNIQUE: Portable AP chest on 08/03/2024 at 2341 hours COMPARISON: 08/02/2024 CT chest FINDINGS: There is bibasilar lower lobe and very small pleural effusions. Cardiomegaly. Aortic calcification. Left transvenous pacemaker device with leads overlying right atrium and right ventricle. Thoracic dextroscoliosis. Atelectasis/or consolidation IMPRESSION: Bibasilar lower lobe atelectasis and/or consolidation and small pleural effusions Cardiomegaly, aortic atherosclerosis Reviewed, dictated and finalized at location A. HMALLOW MACHINE OPERATOR IMPRESSION: Bibasilar lower lobe atelectasis and/or consolidation and small ple ural effusions Cardiomegaly, aortic atherosclerosis
--- NOTE | ~2024-07-28 | XR_ITS ---
EXAMINATION: XR chest 1V portable DATE: 07/30/2024 23:32 INDICATION: Shortness of breath. TECHNIQUE: A single frontal view of the chest was obtained. COMPARISON: Chest single view 07/30/2024 at 10:31 AM, CT abdomen and pelvis 10/02/2023 FINDINGS: There is no pneumonia, pleural effusion, or pneumothorax. Cardiomegaly is noted. There is a left chest wall pacer with leads in the right atrium and right ventricle. The nasogastric tube tip i s beyond the inferior margin of the radiograph, but at least to the stomach. IMPRESSION: 1. Cardiomegaly. Reviewed, dictated and finalized at location A. MARKETING MANAGER IMPRESSION: 1. Cardiomegaly.
--- NOTE | ~2024-07-28 | XR_ITS ---
EXAMINATION: XR abdomen gastric tube insert DATE: 07/29/2024 00:49 INDICATION: Nasogastric tube insertion TECHNIQUE: A supine view of the abdomen and lower chest was obtained for evaluation of feeding tube placement. COMPARISON: None. FINDINGS: Nasogastric tube tip in the body the stomach. No dilated loops of gas-filled bowel visualized upper a bdomen. Mild opacities in the bilateral lower lung zones which could represent atelectasis, aspiratio n or pneumonia. Mild cardiomegaly. Dual lead pacemaker seen with leads projecting over the expected l ocations of the right atrium and right ventricle. IMPRESSION: 1. Nasogastric tube in the stomach. 2. Mild opacities in bilateral lower lung zones which could represent atelectasis or pneumonia. Reviewed, dictated and finalized at location A. OPERATIONS LEAD IMPRESSION: 1. Nasogastric tube in the stomach. 2. Mild opacities in bilateral lower lung zones which could represent atelectas is or pneumonia.
--- NOTE | ~2024-07-28 | XR_ITS ---
EXAMINATION: XR abdomen gastric tube insert DATE: 07/29/2024 23:08 INDICATION: Nasogastric tube insertion TECHNIQUE: A supine view of the abdomen and lower chest was obtained for evaluation of feeding tube placement. COMPARISON: 07/29/2024 FINDINGS: Nasogastric tube tip in proximal side port in the body the stomach. No dilated loops of gas-filled andrea wel in the visualized abdomen. No free intraperitoneal gas. Mild opacities at the right lung base. Th ere is also minimal blunting at the bilateral costophrenic angles. Heart size is normal. Dual lead pa cemaker seen with leads projecting over the expected locations of the right atrium and right ventricl e. IMPRESSION: 1. Nasogastric tube in stomach. 2. Persistent mild opacities at the right lung base which could represent atelectasis or pneumonia an d likely tiny bilateral pleural effusions. Reviewed, dictated and finalized at location A. R INSTALLATION SUPERVISOR IMPRESSION: 1. Nasogastric tube in stomach. 2. Persistent mild opacities at the right lung base which could represent atele ctasis or pneumonia and likely tiny bilateral pleural effusions.
--- NOTE | ~2024-07-28 | CT_ITS ---
EXAMINATION: CT chest abdomen pelvis wo con DATE: 08/02/2024 17:09 INDICATION: New leukocytosis TECHNIQUE: Computed tomography (CT) of the chest, abdomen, and pelvis was performed without intraveno us contrast. Automated exposure control and iterative reconstruction technique were employed. The dos e-length product was 686.70 mGy-cm. COMPARISON: CT abdomen pelvis dated 10/02/[address] chest, abdomen and pelvis dated 04/28/2023 FINDINGS: CHEST CT: Mild emphysema. Small bilateral pleural effusions with dependent atelectasis in the bilateral lower l obes. An additional region of consolidation at the lateral basilar right lower lobe which could repre sent additional atelectasis or pneumonia. Cardiomegaly with prominent left ventricular enlargement. A therosclerotic coronary artery calcification. Dual-lead cardiac pacemaker with lead tips at the right atrium and in the right ventricle near the pulmonary outflow tract. No pericardial effusion. Thoraci c aorta is normal in caliber. No pathologically enlarged thoracic lymphadenopathy. Multinodular goite r. Bilateral gynecomastia. Mild upper thoracic levocurvature with mild spondylosis. Severe lower cerv ical spondylosis. ABDOMEN/PELVIS CT: Multiple small calcified gallstones the dependent aspect of the normal partially decompressed gallbla dder. Liver, spleen, pancreas, bilateral adrenal glands and kidneys are normal on noncontrast imaging . There is extensive calcified atherosclerosis of the aorta and many of the other arteries. Percutane ous gastrostomy tube bulb in the distal body of the stomach. Lan catheter in the bladder which demo nstrates diffuse mild wall thickening and subtle haziness to the surrounding fat suspicious for cysti tis. There are few scattered colonic diverticula without adjacent inflammatory stranding to suggest d iverticulitis. No bowel obstruction. There is diffuse edema of the body wall and intra-abdominal and pelvic fat. No free intraperitoneal gas or fluid. No pathologically enlarged abdominal or pelvic lymp hadenopathy. Large right hydrocele. Mild lumbar levoscoliosis with mild spondylosis. IMPRESSION: 1. Mild emphysema with small bilateral pleural effusions and region of consolidation at the lateral b asilar right lower lobe which could represent atelectasis or pneumonia. 2. Cardiomegaly with prominent left ventricular enlargement. 3. Multinodular goiter. Consider thyroid ultrasound for risk stratification. 4. Lan catheter in the bladder with wall thickening and slight haziness to the surrounding fat sugg estive of cystitis either acute or chronic. Correlate with urinalysis. 5. Cholelithiasis. 6. Large right hydrocele. 7. Nonspecific mild diffuse edema of the intra-abdominal/pelvic and body wall fat. Reviewed, dictated and finalized at location A. CE COMMUNICATION PROFESSOR IMPRESSION: 1. Mild emphysema with small bilateral pleural effusions and region of consolid ation at the lateral basilar right lower lobe which could represent atelectasis or pneumonia. 2. Cardiomegaly with prominent left ventricular enlargement. 3. Multinodular goiter. Consider thyroid ultrasound for risk stratification. 4. Lan catheter in the bladder with wall thickening and slight haziness to th e surrounding fat suggestive of cystitis either acute or chronic. Correlate wit h urinalysis. 5. Cholelithiasis. 6. Large right hydrocele. 7. Nonspecific mild diffuse edema of the intra-abdominal/pelvic and body wall f at.
--- NOTE | ~2024-07-28 | US_ITS ---
EXAMINATION: US abdomen limited DATE: 08/06/2024 14:15 INDICATION: elevated LFTs TECHNIQUE: Multiple grayscale and Doppler ultrasound images of limited portions of the abdomen were o btained. COMPARISON: CT cap 08/02/2024. FINDINGS: The visualized portions of the pancreas are normal. The liver is normal with normal echogen icity and echotexture. No surface nodularity. 5 mm echogenic shadowing focus in the left liver lobe, likely granulomatous or dystrophic calcification. Normal hepatopetal flow in the main portal vein. Ga llbladder wall measures up to 4 mm. Dependent intraluminal echogenicities may represent sludge and/or gallstones The common bile duct measures 3 mm. There was no sonographic Hi sign, although this m ay be confounded by the concurrent use of pain medication. Small volume pleural effusion. Small volum e fluid in the right upper quadrant IMPRESSION: Gallbladder sludge/stones with gallbladder wall thickening. Small right pleural effusion. Small volume ascites. Reviewed, dictated and finalized at location K. ET SPECIALIST
--- NOTE | ~2024-07-28 | XR_ITS ---
XR chest 1V portable DATE: 08/05/2024 10:49 INDICATION: Shortness of breath TECHNIQUE: Portable upright AP chest on 08/05/2024 at 1046 hours COMPARISON: 08/03/2024 portable AP chest FINDINGS: Left transvenous pacemaker device with leads overlying right atrium and right ventricle. Cardiomegaly. Aortic unfolding. There is mild infiltrate or atelectasis involving primarily the lower lung zones. Pulmonary vascularity appears within normal range. There is minimal if any pleural effusion. No pneum othorax. IMPRESSION: Mild infiltrate or atelectasis at the lung bases, stable or mildly improved since 024 Reviewed, dictated and finalized at location A. EXTINGUISHER REPAIRER INSPECTOR IMPRESSION: Mild infiltrate or atelectasis at the lung bases, stable or mildly improved since 08/03/2024
--- NOTE | ~2024-07-28 | XR_ITS ---
EXAMINATION: XR abdomen gastric tube rechec DATE: 07/29/2024 01:07 INDICATION: Nasogastric tube insertion TECHNIQUE: A supine view of the abdomen and lower chest was obtained for evaluation of feeding tube placement. COMPARISON: 07/29/2024 12:45 AM FINDINGS: Nasogastric tube tip in proximal side port in the body of the stomach. No dilated loops of gas-filled bowel in the visualized upper abdomen. Persistent mild opacities in the bilateral lower lung zones w hich could represent atelectasis or pneumonia. Cardiomegaly. Dual lead pacemaker seen with leads proj ecting over the expected locations of the right atrium and right ventricle. IMPRESSION: 1. Nasogastric tube in the stomach. 2. Opacities in bilateral lower lung zones which could represent atelectasis or pneumonia. Reviewed, dictated and finalized at location A. ER PRESS OPERATOR
[2024-07-28 21:12] VITALS: BP 131/77; PULSE 95; RESP 18; TEMP 36.6; O2SAT 96
--- NOTE | 2024-07-28 21:24 | PC.NURSE ---
attempted to call Danielle to see what size G tube patient uses and when his old one came out; no answer.
[2024-07-28 22:07] LABS: Basophils Percent Auto 0.2 % (0.2-1.2); Eosinophils Percent Auto 0.1 % (0-4.4); Hematocrit 27.8 % (42.0-52.0); Hemoglobin 8.5 g/dL (14.0-18.0); Immature Granulocyte Absolute 0.05 K/mm3 (0.00-0.031); Immature Granulocyte Percent A 0.4 % (0-0.5); Mean Corpuscular HGB Conc 30.6 g/dl (32-36); Mean Corpuscular Volume 98.2 fl (80-100); Mean Platelet Volume 11.3 fl (7.4-10.4); Monocytes Absolute Auto 0.6 K/mm3 (0.1-0.6); Monocytes Percent Auto 5.5 % (2.6-8.5); Neutrophils Absolute Auto 10.2 K/mm3 (1.3-6.7); Neutrophils Percent Auto 87.8 % (45.5-73.1); Platelet Count Result 287 k/mm3 (150-375); Red Blood Count 2.83 M/mm3 (4.6-6.20); Red Cell Distribution Width 13.6 % (11.5-14.5); White Blood Count 11.7 K/mm3 (4.5-10.0)
[2024-07-28 22:18] LABS: Alanine Aminotransferase 61 U/L (6-50); Alkaline Phosphatase 95 U/L (38-126); Anion Gap 14 mmol/L (4-12); Aspartate Amino Transferase 43 U/L (17-59); Bilirubin,Total 0.5 mg/dL (0.2-1.3); Calcium 9.1 mg/dL (8.4-10.2); Carbon Dioxide 23 mmol/L (22-30); Chloride 115 mmol/L (98-107); Estimated Glomerular Filt Rate 7; Glucose 165 mg/dL (65-110); Potassium 4.4 mmol/L (3.4-5.0); Sodium 152 mmol/L (137-145)
[2024-07-28 22:38] LABS: Blood Urea Nitrogen > 240 mg/dL (9-20)
[2024-07-28] MEDS: LACTATED RINGERS 1,000 ML 999 ML IV CONT (23:26)
[2024-07-28 23:37] VITALS: BP 152/70; PULSE 62; RESP 16; TEMP 36.8; O2SAT 100
--- NOTE | 2024-07-28 23:47 | P.HP_ITS ---
H&P: HPI History of Present Illness Date/Time: 07/28/24 23:47 Chief Complaint: dislodged PEG tube Narrative: This is a 73-year-old male with past medical history significant for dementia, patient is oriented times once at times, end-stage renal disease, [facility] is a [facility]. Comes to the emergency room after his PEG tube was dislodged. Patient has been placed in observation. Review of Systems Review of Systems: ROS unobtainable: Yes unobtainable due to mental status ( Advanced dementia) [facility] Past Medical History Medical History A-fib Anorexia Aspiration of food Dementia Hypertension Insulin dependent diabetes mellitus Family History Family History Other Unknown family medical history Social History Social History Smoking status: Unknown if ever smoked Second hand tobacco smoke exposure: No Alcohol intake: unknown Substance use: unknown Substance use type: does not use Do You Feel Safe in your Home?: No Lack of Transportation: No Lack of Food: Never True Current Housing: I Have Housing Concerned About Future Housing: No Difficulty Paying Gas/Electric Bills: No Difficulty Paying for Meds: No Currently Unemployed: No Education: Don't Know Difficulty w/ Childcare or Family Care: No Spiritual care concerns: No Meds Home Medications and Allergies Home Medications Medication Instructions Recorded Confirmed Type glucagon 1 mg solution for 1 mg IM PRN PRN Hypoglycemia 04/28/23 07/29/24 Hi story injection (Glucagon Emergency Kit) insulin regular human 100 unit/mL See Rx Instructions .Route .COMPLEX 07/02/24 07/29/24 History injection solution (Humulin R Regular U-100 Insulin) acetaminophen 325 mg tablet 650 mg feeding tube Q6H PRN Pain 07/21/24 07/29/24 Rx (Scale Score 1-3) #30 tabs atorvastatin 20 mg tablet 20 mg feeding tube DAILY #30 tabs 07/21/24 07/29/24 Rx hydralazine 50 mg tablet 50 mg feeding tube TID #90 tabs 07/21/24 07/29/24 Rx insulin glargine 100 unit/mL 6 unit (0.06 mL) subcut HS #30 mL 07/21/24 07/29/24 Rx subcutaneous solution (Lantus U-100 Insulin) sevelamer carbonate 800 mg tablet 800 mg feeding tube TIDWM #90 tabs 07/21/24 07/29/24 Rx (Renvela) Allergies Allergy/AdvReac Type Severity Reaction Status Date / Time No Known Allergies Allergy Verified 07/02/24 09:05 Vital Signs Vital Signs - 24 hr 07/28/24 21:12 07/28/24 23:37 Temperature 97.9 F 98.3 F Pulse Rate 95 62 Respiratory Rate 18 16 Blood Pressure 131/77 152/70 H Pulse Oximetry 96 100 Oxygen Delivery Room Air Exam Narrative: patient is laying in a stretcher Const: General: comfortable, no acute distress, well developed, alert, awake, ill appearing chronically and average body habitus Nutritional Appearance: average body habitus HENMT: Head: normal to inspection, normocephalic and atraumatic Ears: hearing grossly normal bilaterally Face/Nose/Sinus: normal facial exam Face and sinus: normal facial exam Eyes: General: appearance normal, both eyes and all related structures Pupils: Equal, round and reactive pupils present EOM: EOMs intact bilaterally Neck: Neck: full ROM, no lymphadenopathy and no JVD Thyroid: thyroid normal Lymphatic: no lymphadenopathy noted Resp: Effort & Inspection: normal respiratory effort and able to speak in complete sentences Auscultation: clear to auscultation bilaterally Cardio: Jugular venous distension: no JVD Rate: regular rate Rhythm: regular rhythm Heart sounds: S1 normal heart sound present and S2 normal heart sound present GI: GI Palp: Yes Soft to palpation and Yes No hepatosplenomegaly present : General: Yes deferred Skin: Rashes: no rashes Other: patient has some abrasions Neuro: General: no focal motor deficits, CN's II-XI intact bilaterally and Unable to assess gait Cranial nerves: Yes CN's II-XII intact bilaterally and Yes Equal, round and reactive pupils present Cognition (Neuro): abnormal cogn ition ( dementia) Speech: normal speech Gait exam (Neuro): Unable to assess gait Motor exam (neuro): 5/5 motor strength present throughout Extrem: General: normal to inspection, full ROM, no joint enlargement and no pedal edema H&P: Results Labs Labs: Short CBC 07/28/24 Range/Units 22:00 WBC 11.7 H (4.5-10.0) K/mm3 Hgb 8.5 L (14.0-18.0) g/dL Hct 27.8 L (42.0-52.0) % Plt Count 287 (150-375) k/mm3 BMP 07/28/24 22:00 Sodium 152 H Potassium 4.4 Chloride 115 H Carbon Dioxide 23 BUN > 240 H Creatinine 9.60 H Glucose 165 H Calcium 9.1 Liver Function 07/28/24 Range/Units 22:00 Total Bilirubin 0.5 (0.2-1.3) mg/dL AST 43 (17-59) U/L ALT 61 H (6-50) U/L Alkaline Phosphatase 95 (38-126) U/L Albumin 3.0 L (3.5-5.1) g/dL Assessment and Plan Assessment and plan (1) PEG tube malfunction: Code(s): K94.23 - Gastrostomy malfunction Status: Acute Assessment and Plan: admitted to regular medical floor (2) Renal failure, chronic: Code(s): N18.9 - Chronic kidney disease, unspecified Status: Acute Assessment and Plan: not a candidate for hemodialysis (3) A-fib: Code(s): I48.91 - Unspecified atrial fibrillation Status: Acute Assessment and Plan: rate controlled (4) Altered mental status: Qualifiers: Altered mental status type: unspecified Qualified Code(s): R41.82 - Altered mental status, unspecified Code(s): R41.82 - Altered mental status, unspecified Status: Acute Assessment and Plan: patient is demented (5) Insulin dependent diabetes mellitus: Status: Chronic Assessment and Plan: currently NPO NG in Hospitalist [facility] Advance Care Plan I have confirmed that the patient's Advanced Care Plan is present, code status is documented, or surrogate decision maker is listed in patient medical record.: Yes Medication Reconciliation I have utilized all available resources to obtain, update and review the patients current medications (includes all prescriptions, OTC, herbals, cannabis, and nutritional supplements).: Yes
--- NOTE | 2024-07-28 23:49 | ED.RECABL ---
HPI - Recheck/Abnormal Lab/Rx General Chief Complaint: Recheck/Abnormal Lab/Rx Stated Complaint: ABNORMAL LABS, G-TUBE OUT Time Seen by Provider: 07/28/24 22:43 History of Present Illness HPI narrative: 73-year-old male with extensive past medical history including advanced dementia, A&O x1 at baseline, resides at a assisted facility. Patient also has chronic renal failure now and previously been assessed by multiple specialties including Nephrology, Cardiology and General surgery for initiation of dialysis and he was deemed a poor surgical candidate it is with significant comorbidities and risks with initiation. elected for outpatient follow-up with Nephrology. During his previous admission he had a PEG tube placed for dysphagia and difficulty swallowing. This was placed on 07/[address] Wolfe. Patient presents from his assisted facility today for displacement of his PEG tube and potential concerning laboratory studies. He has a chronically elevated BUN and creatinine with BUN in the 200s. This was the reason for his previous admission for acute on chronic renal failure. Patient himself is not able to provide collateral history as he is alert oriented x1 which is baseline mentation. Patient presents without any correction documentation and EMS report only states that his PEG tube is out for an unknown amount of time. Related Data Home Medications Medication Instructions Recorded Confirmed glucagon 1 mg solution for 1 mg IM PRN PRN Hypoglycemia 04/28/23 07/29/24 injection (Glucagon Emergency Kit) insulin regular human 100 unit/mL See Rx Instructions .Route .COMPLEX 07/02/24 07/29/24 injection solution (Humulin R Regular U-100 Insulin) Allergies Allergy/AdvReac Type Severity Reaction Status Date / Time No Known Allergies Allergy Verified 07/02/24 09:05 Review of Systems Review of Systems: ROS unobtainable: Yes unobtainable due to medical condition and unobtainable due to mental status PMFSH Past Medical History Medical History A-fib Anorexia Aspiration of food Dementia Hypertension Insulin dependent diabetes mellitus Family History Family History Other Unknown family medical history Social History Social History Smoking status: Unknown if ever smoked Second hand tobacco smoke exposure: No Alcohol intake: unknown Substance use: unknown Substance use type: does not use Do You Feel Safe in your Home?: No Lack of Transportation: No Lack of Food: Never True Current Housing: I Have Housing Concerned About Future Housing: No Difficulty Paying Gas/Electric Bills: No Difficulty Paying for Meds: No Currently Unemployed: No Education: Don't Know Difficulty w/ Childcare or Family Care: No Spiritual care concerns: No Exam Narrative: GENERAL: Chronically ill-appearing, cachectic in appearance, urinary catheter in place, not in acute distress, alert oriented x1 which is his baseline. HEAD: [Normocephalic, atraumatic.] EYES: [PERRLA and EOMI.] ENT: Nares clear, no rhinorrhea or epistaxis. Mucous membranes dry NECK: Supple. CHEST: [Clear to auscultation. No respiratory distress.] HEART: [Regular rate and rhythm]. No murmur heard. [Normal peripheral pulses.] ABDOMEN: [Soft, nondistended], [nontender], [No rigidity or guarding] Previous PEG tube site is closed without any opening, no bleeding, erythema or tenderness. EXTREMITIES: Normal range of motion. [No edema.] SKIN: Warm, dry, no rash. NEURO: Alert and oriented X1 which is his baseline, follows commands, moves extremities without difficulty. PSYCH: appropriate Course Vital Signs Vital signs: Vital Signs Temperature 36.6 C 07/28/24 21:12 Pulse Rate 95 07/28/24 21:12 Respiratory Rate 18 07/28/24 21:12 Blood Pressure 131/77 07/28/24 21:12 Pulse Oximetry 96 07/28/24 21:12 Oxygen Delivery Room Air 07/28/24 21:12 Temperature 36.6 C 07/29/24 06:00 Pulse Rate 60 07/29/24 06:00 Respiratory Rate 18 07/29/24 06:00 Blood Pressure 166/75 H 07/29/24 06:00 Pulse Oximetry 100 07/29/24 06:00 Oxygen Delivery Room Air 07/29/24 01:52 MDM - Recheck/Abnormal Lab/Rx MDM Narrative Medical decision making narrative: 73-year-old male with a history of advanced dementia, chronic renal failure, peg tube dependence presenting to the emergency department for dislodged PEG tube. Patient has a history of renal failure and was recently admitted for acute kidney injury and renal failure secondary to a potential combination of factors including ATN, acute kidney injury from dehydration, urinary tract infection. Patient is at his baseline mentation according to previous documentation. He does not appear in any distress and has reassuring vital signs without any blood pressure concerns, tachycardia, fever or hypoxia. He is following commands easily, does have a Lan catheter draining clear yellow urine. Repeat laboratories were obtained including a CBC, CMP with attention to the BUN and creatinine which are worsening from his baseline. BUN is above 240, creatinine slightly elevated 9. He is dehydrated with elevated sodium and chloride consistent with intravascular volume depletion. He previously has had significant elevations in the 160s from sodium and came down nicely with rehydration. Patient was given 1 L fluid bolus here and started on maintenance fusion with goal of 100 cc/hour. His PEG tube site is completely closed down and not amenable to read insertion of a new PEG tube at bedside given the fresh PEG tube placement several weeks prior by Gastroenterology through endoscopy procedure. I discussed the case with the on-call GI doctor Estrella. we discussed patient's presentation, need for repeat endoscopy with PEG tube placement and he was agreeable to the procedure but this will have to happen in several days on Wednesday and he made recommendations to place an NG tube for tube feeding until that happens. I discussed the case with the on-call hospitalist Dr. Jesus and after we relayed the laboratory studies, plan of care and need for admission for PEG tube reinsertion and rehydration she accepted the patient to a medical-surgical bed. No indications presently for any telemetry monitoring as patient is asymptomatic and has reassuring vital signs. NG tube was ordered and KUB ordered follow-up for confirming placement to facilitate tube feeding on inpatient basis through PEG tube placement. NG tube was successfully placed and x-ray confirmed placement in the stomach. Procedure performed by nursing staff and patient tolerated this well. Patient did start pulling at his tubes and lines and was placed on the soft restraints at this time. Medical Records Attestation: I reviewed the patient's medical records. Lab Data Attestation: I reviewed the patient's lab results. 07/28/24 22:00 07/28/24 22:00 Labs: Lab Results 07/28/24 07/28/24 Range/Units 22:00 23:36 WBC 11.7 H (4.5-10.0) K/mm3 RBC 2.83 L (4.6-6.20) M/mm3 Hgb 8.5 L (14.0-18.0) g/dL Hct 27.8 L (42.0-52.0) % MCV 98.2 (80-100) fl MCH 30.0 (26-34) pg MCHC 30.6 L (32-36) g/dl RDW 13.6 (11.5-14.5) % Plt Count 287 (150-375) k/mm3 MPV 11.3 H (7.4-10.4) fl Immature Gran % (Auto) 0.4 (0-0.5) % Neut % (Auto) 87.8 H (45.5-73.1) % Lymph % (Auto) 6.0 L (18.3-44.2) % Mcdowell % (Auto) 5.5 (2.6-8.5) % Eos % (Auto) 0.1 (0-4.4) % Baso % (Auto) 0.2 (0.2-1.2) % Lymph # (Auto) 0.70 L (0.9-3.2) K/mm3 Mcdowell # (Auto) 0.6 (0.1-0.6) K/mm3 Eos # (Auto) 0.0 (0-0.3) K/mm3 Baso # (Auto) 0.0 (0.0-0.1) K/mm3 Abs Immat Gran (auto) 0.05 H (0.00-0.031) K/mm3 Absolute Neuts (auto) 10.2 H (1.3-6.7) K/mm3 Absolute Nucleated RBC 0.000 (0.0-0.012) K/mm3 Nucleated RBC % 0.0 (0.0-0.2) % PT 15.6 H (11.1-14.7) Seconds INR 1.2 APTT 29.3 (22.3-36.8) Seconds Sodium 152 H (137-145) mmol/L Potassium 4.4 (3.4-5.0) mmol/L Chloride 115 H (98-107) mmol/L Carbon Dioxide 23 (22-30) mmol/L Anion Gap 14 H (4-12) mmol/L BUN > 240 H (9-20) mg/dL Creatinine 9.60 H (0.7-1.3) mg/dL Estim Creat Clear Calc Not Reportable Estimated GFR 7 L (59 - ) Glucose 165 H (65-110) mg/dL Calcium 9.1 (8.4-10.2) mg/dL Total Bilirubin 0.5 (0.2-1.3) mg/dL AST 43 (17-59) U/L ALT 61 H (6-50) U/L Alkaline Phosphatase 95 (38-126) U/L Total Protein 7.0 (6.3-8.2) g/dL Albumin 3.0 L (3.5-5.1) g/dL Blood Type B Positive Antibody Screen Negative Imaging Data Attestation: I personally reviewed and interpreted this imaging study as follows: Radiologist's impression: IMPRESSION: 1. Nasogastric tube in the stomach. 2. Mild opacities in bilateral lower lung zones which could represent atelectasis or pneumonia. Discharge Plan Discharge Clinical Impression: PEG tube malfunction, LINDSEY (acute kidney injury), Renal failure, chronic Patient Disposition: Still a Patient Condition: Stable Time of Disposition: 00:11
[2024-07-28 23:50] LABS: INR 1.2; Prothrombin Time 15.6 Seconds (11.1-14.7)
[2024-07-28 23:51] LABS: Partial Thromboplastin Time 29.3 Seconds (22.3-36.8)
[2024-07-28] MEDS: LACTATED RINGERS 1,000 ML 100 ML IV CONT (23:55)
[2024-07-29] VITALS (9 sets, daily range): BP systolic 160–189; BP diastolic 59–84; PULSE 60–64; RESP 14–22; TEMP 36.2–36.8; O2SAT 100; BMI 23.9
[2024-07-29] MEDS: LORazepam INJ (*CRX) 2 MG/ML VIAL 1 MG IV PUSH (00:36)
[2024-07-29] MEDS: MORPHINE SULFATE (*CRX) 2 MG/ML INJ 1 MG IV PUSH (00:37)
--- NOTE | 2024-07-29 00:52 | PC.NURSE ---
Patient pulled out his G tube. Notified Dr. Zhang who advised to use soft restraints.
[2024-07-29] MEDS: LACTATED RINGERS 1,000 ML 100 ML IV CONT ×2 (06:45→16:52)
[2024-07-29 07:27] LABS: Glucose Point of Care 109 mg/dl (65-105)
--- NOTE | 2024-07-29 07:35 | PM.IMPN ---
Progress Note: A&P Assessment and Plan (1) PEG tube malfunction: Code(s): K94.23 - Gastrostomy malfunction Status: Acute Assessment and Plan: admitted to regular medical floor G-tube placement planned on Wednesday by GI (2) Renal failure, chronic: Code(s): N18.9 - Chronic kidney disease, unspecified Status: Acute Assessment and Plan: not a candidate for hemodialysis Continue renvela Nepro tube feeds, adjust per insurance claims clerk (3) A-fib: Code(s): I48.91 - Unspecified atrial fibrillation Status: Acute Assessment and Plan: rate controlled Is at increased risk of bleeding with uremia (4) Altered mental status: Qualifiers: Altered mental status type: unspecified Qualified Code(s): R41.82 - Altered mental status, unspecified Code(s): R41.82 - Altered mental status, unspecified Status: Acute Assessment and Plan: patient has a history of dementia and could also have a degree of metabolic encephalopathy given signficant uremia (5) Insulin dependent diabetes mellitus: Status: Chronic Assessment and Plan: SSI prn Holding lantus Restart Nepro & adjusting per insurance claims clerk On dextrose fluids, continue (6) Cellulitis: Code(s): L03.90 - Cellulitis, unspecified Status: Acute Assessment and Plan: Minimal erythema to g-tube site. Crusting Start ceftriaxone x5 days & monitor Time Spent With Patient Time: 56 minutes Subjective Date/time seen: 07/29/24 07:35 Interval history: Restraints placed after pulling at NG tube. NG tube in place on imaging. Hospital course: Patient is a 73 year old hx dementia, baseline oriented x1, ESRD not a dialysis candidated, admitted from a longterm for PEG tube placement. GI was consulted for G-tube and plans for procedure on Wednesday. NPO but planning to start tube feeds. Management Coordinator consulted. Continuing home meds for HTN. Not a dialysis candidate with significant uremia (BUN >240) so continuing fluids. Electrolytes normal and not overloaded on exam Exam Narrative: General - Wakes up to voice, opens eyes and tracks. No acute distress Eyes - PERRLA, EOM intact ENT - No thrush, No erythema Neck - No noticeable or palpable swelling Lymph Nodes - No lymphadenopathy Cardiovascular - RRR no m/r/g, no JVD Lungs: Clear to auscultation, No wheezing, use of accessory muscles, no crackles Skin - Skin warm and dry, no wounds or rashes Abdomen - Normal bowel sounds, abdomen soft and nontender. Minimal erythema to g-tube site Extremities - No edema, cyanosis or clubbing Musculoskeletal - 5/5 strength, normal range of motion, no swollen or erythematous joints. Neurological ? Alert and oriented x 0-1, moves all extremities Psych: Normal mood and affect Objective Data Vital Signs Vital Signs: Vital Signs - 24 hr 07/28/24 21:12 07/28/24 23:37 07/29/24 00:05 Temperature 97.9 F 98.3 F 98.2 F Pulse Rate 95 62 60 Respiratory Rate 18 16 20 Blood Pressure 131/77 152/70 H 165/66 H Pulse Oximetry 96 100 100 Oxygen Delivery Room Air 07/29/24 01:40 07/29/24 01:52 07/29/24 06:00 Temperature 97.7 F 97.8 F Pulse Rate 64 60 Respiratory Rate 14 18 Blood Pressure 172/76 H 166/75 H Pulse Oximetry 100 100 Oxygen Delivery Room Air Intake/Output Intake/Output: Intake & Output 07/26/24 07/27/24 07/28/24 07/29/24 23:59 23:59 23:59 23:59 Intake Total 1683.3 Output Total 400 Balance 1283.3 Meds/Results Medications: Active Medications Generic Name Dose Route Start Last Admin Trade Name Freq PRN Reason Stop Dose Admin Lactated Ringer's 1,000 mls @ 100 mls/hr 07/28/24 23:50 07/29/24 06:45 Lr - Lactated Ringers Iv IV CONT 100 mls/hr .Q10H URIAH Administration Radiology Results: ITS Impressions Abdomen X-Ray 07/29/24 06:59 IMPRESSION: 1. Nasogastric tube in the stomach. 2. Opacities in bilateral lower lung zones which could represent atelectasis or pneumonia. Labs Labs: Laboratory Results - last 24 hr 07/28/24 07/28/24 07/29/24 22:00 23:36 07:24 WBC 11.7 H RBC 2.83 L Hgb 8.5 L Hct 27.8 L MCV 98.2 MCH 30.0 MCHC 30.6 L RDW 13.6 Plt Count 287 MPV 11.3 H Immature Gran % (Auto) 0.4 Neut % (Auto) 87.8 H Lymph % (Auto) 6.0 L [place] % (Auto) 5.5 Eos % (Auto) 0.1 Baso % (Auto) 0.2 Lymph # (Auto) 0.70 L [place] # (Auto) 0.6 Eos # (Auto) 0.0 Baso # (Auto) 0.0 Abs Immat Gran (auto) 0.05 H Absolute Neuts (auto) 10.2 H Absolute Nucleated RBC 0.000 Nucleated RBC % 0.0 PT 15.6 H INR 1.2 APTT 29.3 Sodium 152 H Potassium 4.4 Chloride 115 H Carbon Dioxide 23 Anion Gap 14 H BUN > 240 H Creatinine 9.60 H Estim Creat Clear Calc Not Reportable Estimated GFR 7 L Glucose 165 H POC Capillary Glucose 109 H Calcium 9.1 Total Bilirubin 0.5 AST 43 ALT 61 H Alkaline Phosphatase 95 Total Protein 7.0 Albumin 3.0 L Blood Type B Positive Antibody Screen Negative Quality VTE Prophylaxis VTE prophylaxis: pharmacologic ordered Hospitalist MIPS Advance Care Plan I have confirmed that the patient's Advanced Care Plan is present, code status is documented, or surrogate decision maker is listed in patient medical record.: Yes Medication Reconciliation I have utilized all available resources to obtain, update and review the patients current medications (includes all prescriptions, OTC, herbals, cannabis, and nutritional supplements).: Yes
--- NOTE | 2024-07-29 07:54 | P.CONGI_ITS ---
Assessment and Plan Assessment and plan (1) PEG tube malfunction: Code(s): K94.23 - Gastrostomy malfunction Status: Acute Assessment and Plan: Will place PEG on Wednesday afternoon. Keep pt NPO after midnight on Monday 07/30, do not remove NG tube. GI Consult Note Consult date/time: 07/29/24 07:54 HPI: Cristofer Bryant is a 73 year old male who is a assisted resident. He was admi tted last night because his gastrostomy tube was accidentally removed. He is here for PEG replacement. An NG tube has been temporarily placed for the purpose of feeding and medication. Review of Systems Review of Systems: All systems reviewed & are unremarkable except as noted in HPI and below PMFSH Past Medical History Medical History A-fib Anorexia Aspiration of food Dementia Hypertension Insulin dependent diabetes mellitus Family History Family History Other Unknown family medical history Social History Social History Smoking status: Unknown if ever smoked Second hand tobacco smoke exposure: No Alcohol intake: unknown Substance use: unknown Substance use type: does not use Do You Feel Safe in your Home?: No Lack of Transportation: No Lack of Food: Never True Current Housing: I Have Housing Concerned About Future Housing: No Difficulty Paying Gas/Electric Bills: No Difficulty Paying for Meds: No Currently Unemployed: No Education: Don't Know Difficulty w/ Childcare or Family Care: No Spiritual care concerns: No Meds Home Medications and Allergies Home Medications Medication Instructions Recorded Confirmed Type glucagon 1 mg solution for 1 mg IM PRN PRN Hypoglycemia 04/28/23 07/29/24 History injection (Glucagon Emergency Kit) insulin regular human 100 unit/mL See Rx Instructions .Route .COMPLEX 07/02/24 07/29/24 History injection solution (Humulin R Regular U-100 Insulin) acetaminophen 325 mg tablet 650 mg feeding tube Q6H PRN Pain 07/21/24 07/29/24 Rx (Scale Score 1-3) #30 tabs atorvastatin 20 mg tablet 20 mg feeding tube DAILY #30 tabs 07/21/24 07/29/24 Rx hydralazine 50 mg tablet 50 mg feeding tube TID #90 tabs 07/21/24 07/29/24 Rx insulin glargine 100 unit/mL 6 unit (0.06 mL) subcut HS #30 mL 07/21/24 07/29/24 Rx subcutaneous solution (Lantus U-100 Insulin) sevelamer carbonate 800 mg tablet 800 mg feeding tube TIDWM #90 tabs 07/21/24 07/29/24 Rx (Renvela) Allergies Allergy/AdvReac Type Severity Reaction Status Date / Time No Known Allergies Allergy Verified 07/02/24 09:05 Vital Signs Vital Signs - 24 hr 07/28/24 21:12 07/28/24 23:37 07/29/24 00:05 Temperature 97.9 F 98.3 F 98.2 F Pulse Rate 95 62 60 Respiratory Rate 18 16 20 Blood Pressure 131/77 152/70 H 165/66 H Pulse Oximetry 96 100 100 Oxygen Delivery Room Air 07/29/24 01:40 07/29/24 01:52 07/29/24 06:00 Temperature 97.7 F 97.8 F Pulse Rate 64 60 Respiratory Rate 14 18 Blood Pressure 172/76 H 166/75 H Pulse Oximetry 100 100 Oxygen Delivery Room Air Exam Narrative: GENERAL: Chronically ill-appearing, cachectic in appearance, urinary catheter in place, not in acute distress, alert oriented x1 which is his baseline. HEAD: [Normocephalic, atraumatic.] EYES: [PERRLA and EOMI.] ENT: Nares clear, no rhinorrhea or epistaxis. Mucous membranes dry NECK: Supple. CHEST: [Clear to auscultation. No respiratory distress.] HEART: [Regular rate and rhythm]. No murmur heard. [Normal peripheral pulses.] ABDOMEN: [Soft, nondistended], [nontender], [No rigidity or guarding] Previous PEG tube site is closed without any opening, no bleeding, erythema or tenderness. EXTREMITIES: Normal range of motion. [No edema.] SKIN: Warm, dry, no rash. NEURO: Alert and oriented X1 which is his baseline, follows commands, moves extremities without difficulty. PSYCH: appropriate Results Labs 07/28/24 22:00 07/28/24 22:00 Labs: Short CBC 07/28/24 Range/Units 22:00 WBC 11.7 H (4.5-10.0) K/mm3 Hgb 8.5 L (14.0-18.0) g/dL Hct 27.8 L (42.0-52.0) % Plt Count 287 (150-375) k/mm3 BMP 07/28/24 22:00 Sodium 152 H Potassium 4.4 Chloride 115 H Carbon Dioxide 23 BUN > 240 H Creatinine 9.60 H Glucose 165 H Calcium 9.1 Liver Function 07/28/24 Range/Units 22:00 Total Bilirubin 0.5 (0.2-1.3) mg/dL AST 43 (17-59) U/L ALT 61 H (6-50) U/L Alkaline Phosphatase 95 (38-126) U/L Albumin 3.0 L (3.5-5.1) g/dL
[2024-07-29 12:06] LABS: Glucose Point of Care 108 mg/dl (65-105)
[2024-07-29 17:06] LABS: Glucose Point of Care 121 mg/dl (65-105)
[2024-07-29] MEDS: hydrALAZINE HCL 20 MG/ML VIAL 10 MG IV PUSH (21:44)
[2024-07-29] MEDS: HEPARIN SODIUM 5,000 UNITS/ML VIAL 5000 UNITS SUB-Q (21:44)
[2024-07-29 23:48] LABS: Glucose Point of Care 108 mg/dl (65-105)
[2024-07-30] MEDS: LACTATED RINGERS 1,000 ML 100 ML IV CONT ×2 (02:30→16:34)
[2024-07-30 04:00] VITALS: BP 173/77; PULSE 64; RESP 24; TEMP 36.4; O2SAT 100
[2024-07-30] MEDS: hydrALAZINE HCL 50 MG TABLET FEED TUBE ×3 (04:57→21:40)
[2024-07-30 05:34] LABS: Glucose Point of Care 123 mg/dl (65-105)
[2024-07-30 08:00] VITALS: BP 145/65; PULSE 66; RESP 18; TEMP 36.5; O2SAT 99
[2024-07-30] MEDS: SEVELAMER CARBONATE 800 MG TABLET FEED TUBE ×3 (08:59→18:30)
[2024-07-30] MEDS: ATORVASTATIN 20 MG TABLET FEED TUBE (08:59)
[2024-07-30] MEDS: HEPARIN SODIUM 5,000 UNITS/ML VIAL 5000 UNITS SUB-Q ×2 (08:59→21:40)
--- NOTE | 2024-07-30 10:10 | WPDGIPROGNO ---
Progress Note: A&P Assessment and Plan (1) PEG tube malfunction: Code(s): K94.23 - Gastrostomy malfunction Status: Acute Assessment and Plan: Patient evaluated yesterday for PEG dislodgement. Will schedule PEG placement for tomorrow, consent ordered and patient to be kept NPO (currently with NG tube for feedings) after midnight. Subjective Date/time seen: 07/30/24 10:10 Objective Data Vital Signs Vital Signs: Vital Signs - 24 hr 07/29/24 12:00 07/29/24 14:00 07/29/24 16:00 Temperature 98.2 F 98.1 F 98.3 F Pulse Rate 63 60 60 Respiratory Rate 22 H 22 H 21 H Blood Pressure 163/59 H 168/78 H 166/84 H Pulse Oximetry 100 100 100 Oxygen Delivery 07/29/24 19:32 07/29/24 23:51 07/29/24 20:00 Temperature 97.3 F L 97.1 F L Pulse Rate 62 64 Respiratory Rate 22 H 22 H Blood Pressure 189/64 H 176/76 H Pulse Oximetry 100 100 Oxygen Delivery Room Air 07/30/24 04:00 07/30/24 08:00 Temperature 97.5 F L 97.7 F Pulse Rate 64 66 Respiratory Rate 24 H 18 Blood Pressure 173/77 H 145/65 H Pulse Oximetry 100 99 Oxygen Delivery Intake/Output Intake/Output: Intake & Output 07/27/24 07/28/24 07/29/24 07/30/24 23:59 23:59 23:59 23:59 Intake Total 2683.3 1313.3 Output Total 850 450 Balance 1833.3 863.3 Meds/Results Medications: Active Medications Generic Name Dose Route Start Last Admin Trade Name Freq PRN Reason Stop Dose Admin Atorvastatin Calcium 20 mg 07/30/24 09:00 07/30/24 08:59 Atorvastatin 20 Mg Tablet FEED TUBE 20 mg DAILY URIAH Administration Dextrose 12.5 gm 07/29/24 11:33 Dextrose 50% 25 Gm/50 Ml Syringe IV PUSH PRN PRN Hypoglycemia Protocol Glucagon 1 mg 07/29/24 11:33 Glucagon For Inj 1 Mg Vial IM PRN PRN Hypoglycemia Protocol Glucose 15 gm 07/29/24 11:33 Glucose Oral Gel 15 Gm Of Glucse In 37.5 Gm Tube PO PRN PRN Hypoglycemia Protocol Heparin Sodium (Porcine) 5,000 units 07/29/24 21:00 07/30/24 08:59 Heparin Sodium 5,000 Units/Ml Vial SUB-Q 5,000 units Q12HR URIAH Administration Hydralazine HCl 50 mg 07/29/24 21:00 07/30/24 04:57 Hydralazine Hcl 50 Mg Tablet FEED TUBE 50 mg Q8HR URIAH Administration Hydralazine HCl 10 mg 07/29/24 21:19 07/29/24 21:44 Hydralazine Hcl 20 Mg/Ml Vial IV PUSH 10 mg Q6H PRN Administration Blood Pressure - High Lactated Ringer's 1,000 mls @ 100 mls/hr 07/28/24 23:50 07/30/24 02:30 Lr - Lactated Ringers Iv IV CONT 100 mls/hr .Q10H URIAH Administration Dextrose 1,000 mls @ 100 mls/hr 07/29/24 11:33 Dextrose 5% 1,000 Ml IVPB PRN PRN Hypoglycemia Protocol Ceftriaxone Sodium 1 gm in 50 mls @ 100 mls/hr 07/29/24 20:00 07/29/24 21:44 Rocephin 1 Gm/Ns 50 Ml IVPB 08/02/24 19:59 100 mls/hr Q24H URIAH Administration Insulin Aspart 2 - 5 units 07/29/24 12:00 07/30/24 06:37 Insulin Aspart (*Bkc) 100 Units/Ml SUB-Q Not Given Q6HR URIAH Protocol Sevelamer Carbonate 800 mg 07/30/24 08:00 07/30/24 08:59 Sevelamer Carbonate 800 Mg Tablet FEED TUBE 800 mg TIDWM URIAH Administration Radiology Results: ITS Impressions Abdomen X-Ray 07/30/24 07:14 IMPRESSION: 1. Nasogastric tube in stomach. 2. Persistent mild opacities at the right lung base which could represent atelectasis or pneumonia and likely tiny bilateral pleural effusions. Labs Labs: Laboratory Results - last 24 hr 07/29/24 07/29/24 07/29/24 11:53 17:03 23:32 POC Capillary Glucose 108 H 121 H 108 H 07/30/24 05:32 POC Capillary Glucose 123 H
--- NOTE | 2024-07-30 10:23 | P.PNIM_ITS ---
Progress Note: A&P Assessment and Plan (1) PEG tube malfunction: Code(s): K94.23 - Gastrostomy malfunction Status: Acute Assessment and Plan: * HX of aspiration * recent placement of peg tube * Dislodged per KUB * GI consulted * placement scheduled 10/31/23 * Tube feeds per NG tube * Monitor electrolytes replenish as needed and adjust flushes as needed for any hypernatremia * Currently in restraints will need ABD binder at discharge to reduce risks of dislodging again patient A&O x1 (2) Renal failure (ARF), acute on chronic: Code(s): N17.9 - Acute kidney failure, unspecified; N18.9 - Chronic kidney disease, unspecified Status: Acute Assessment and Plan: * ESRD * LR IV Fluids * Patient is not a candidate for hemodialysis * Resumed sevelamer carbonate * Avoid nephrotoxic drugs. * Monitor antihypertensive drug therapy. * Avoid NSAIDs. * Routine CMP monitoring GFR. * Monitor electrolytes especially potassium. * Antibiotic doses depending on creatinine clearance. * Pharmacy does medications. * Routine follow-up with Nephrology as an outpatient. (3) Insulin dependent diabetes mellitus: Status: Chronic Assessment and Plan: * Accu-Cheks A6HR on tube feeds * sliding scale insulin * resume patient's home long-acting * Watch for hypoglycemia/hypoglycemic protocol ordered (4) Pneumonia: Code(s): J18.9 - Pneumonia, unspecified organism Status: Acute Assessment and Plan: * KUB showing lower RT lung opacities * mild leukocytosis on admission * will order chest x-ray for review * afebrile and on room air * will hold off on initiating antibiotic therapy until chest x-ray reviewed * however patient does have history of aspiration (5) Hypertension: Code(s): I10 - Essential (primary) hypertension Status: Chronic Assessment and Plan: * patient hypertensive admission * had missed his blood pressure medication * resume hydralazine t.i.d. through tube * added p.r.n. hydralazine for systolic over 180 (6) Dementia: Code(s): F03.90 - Unspecified dementia, unspecified severity, without behavioral disturbance, psychotic disturbance, mood disturbance, and anxiety Status: Acute Assessment and Plan: * Alert and oriented x1 * Minimal * at baseline * Currently in restraints for medical safety pulling out peg tube will need ABD binder at discharge Plan Code status: Full code per patient DVT prophylaxis: Lovenox Stress ulcer prophylaxis: Protonix 40 daily PT/OT notes: bedbound Disposition: Patient continues admission to the medical unit for replacement of dislodged PEG tube scheduled for tomorrow 07/31. will need abdominal binder at discharge plan to return back to snf facility once medically stable. Time Spent With Patient Time with patient: 15 - 25 minutes Subjective Date/time seen: 07/30/24 10:23 Interval history: Patient is a 73-year-old male who was admitted to the medical unit for replacement of dislodged PEG tube. 07/30/2024: Assumed care Patient nonverbal but alert did shake head when asked if he has any pain. Elevated RR will add pain medication. Review of Systems Review of Systems: ROS unobtainable: Yes unobtainable due to medical condition Exam Narrative: * GENERAL: Alert and oriented x 1 nonverbal. in pain * EYES: EOMI. No scleral icterus. PERRLA. * HEENT: Moist mucous membranes. * LUNGS: Clear to auscultation bilaterally. Use of accessory muscles, tachypnea * CARDIOVASCULAR: Regular rate and rhythm. No murmur. No JVD. S1-S2 * ABDOMEN: Soft, non tenderness and non-distended. healing wound on LUQ * EXTREMITIES: No edema. Non-tender * SKIN: No rashes or lesions. Skin warm, dry. * NEUROLOGIC: No focal neurological deficits. Non-Verbal * PSYCHIATRIC: Unable to assess Objective Data Vital Signs Vital Signs: Vital Signs - 24 hr 07/29/24 12:00 07/29/24 14:00 07/29/24 16:00 Temperature 98.2 F 98.1 F 98.3 F Pulse Rate 63 60 60 Respiratory Rate 22 H 22 H 21 H Blood Pressure 163/59 H 168/78 H 166/84 H Pulse Oximetry 100 100 100 Oxygen Delivery 07/29/24 19:32 07/29/24 23:51 07/29/24 20:00 Temperature 97.3 F L 97.1 F L Pulse Rate 62 64 Respiratory Rate 22 H 22 H Blood Pressure 189/64 H 176/76 H Pulse Oximetry 100 100 Oxygen Delivery Room Air 07/30/24 04:00 07/30/24 08:00 Temperature 97.5 F L 97.7 F Pulse Rate 64 66 Respiratory Rate 24 H 18 Blood Pressure 173/77 H 145/65 H Pulse Oximetry 100 99 Oxygen Delivery Intake/Output Intake/Output: Intake & Output 07/27/24 07/28/24 07/29/24 07/30/24 23:59 23:59 23:59 23:59 Intake Total 2683.3 1313.3 Output Total 850 450 Balance 1833.3 863.3 Meds/Results Medications: Active Medications Generic Name Dose Route Start Last Admin Trade Name Freq PRN Reason Stop Dose Admin Atorvastatin Calcium 20 mg 07/30/24 09:00 07/30/24 08:59 Atorvastatin 20 Mg Tablet FEED TUBE 20 mg DAILY URIAH Administration Dextrose 12.5 gm 07/29/24 11:33 Dextrose 50% 25 Gm/50 Ml Syringe IV PUSH PRN PRN Hypoglycemia Protocol Glucagon 1 mg 07/29/24 11:33 Glucagon For Inj 1 Mg Vial IM PRN PRN Hypoglycemia Protocol Glucose 15 gm 07/29/24 11:33 Glucose Oral Gel 15 Gm Of Glucse In 37.5 Gm Tube PO PRN PRN Hypoglycemia Protocol Heparin Sodium (Porcine) 5,000 units 07/29/24 21:00 07/30/24 08:59 Heparin Sodium 5,000 Units/Ml Vial SUB-Q 5,000 units Q12HR URIAH Administration Hydralazine HCl 50 mg 07/29/24 21:00 07/30/24 04:57 Hydralazine Hcl 50 Mg Tablet FEED TUBE 50 mg Q8HR URIAH Administration Hydralazine HCl 10 mg 07/29/24 21:19 07/29/24 21:44 Hydralazine Hcl 20 Mg/Ml Vial IV PUSH 10 mg Q6H PRN Administration Blood Pressure - High Lactated Ringer's 1,000 mls @ 100 mls/hr 07/28/24 23:50 07/30/24 02:30 Lr - Lactated Ringers Iv IV CONT 100 mls/hr .Q10H URIAH Administration Dextrose 1,000 mls @ 100 mls/hr 07/29/24 11:33 Dextrose 5% 1,000 Ml IVPB PRN PRN Hypoglycemia Protocol Ceftriaxone Sodium 1 gm in 50 mls @ 100 mls/hr 07/29/24 20:00 07/29/24 21:44 Rocephin 1 Gm/Ns 50 Ml IVPB 08/02/24 19:59 100 mls/hr Q24H URIAH Administration Insulin Aspart 2 - 5 units 07/29/24 12:00 07/30/24 06:37 Insulin Aspart (*Bkc) 100 Units/Ml SUB-Q Not Given Q6HR [facility] Protocol Insulin Glargine 6 units 07/30/24 21:00 Insulin Glargine (*Bkc) 100 Units/Ml SUB-Q HS [facility] Pantoprazole Sodium 40 mg 07/30/24 10:20 Pantoprazole Sodium Iv 40 Mg Vial IV PUSH QAM [facility] Sevelamer Carbonate 800 mg 07/30/24 08:00 07/30/24 08:59 Sevelamer Carbonate 800 Mg Tablet FEED TUBE 800 mg TIDWM [facility] Administration Radiology Results: ITS Impressions Abdomen X-Ray 07/30/24 07:14 IMPRESSION: 1. Nasogastric tube in stomach. 2. Persistent mild opacities at the right lung base which could represent atelectasis or pneumonia and likely tiny bilateral pleural effusions. Labs Labs: Laboratory Results - last 24 hr 07/29/24 07/29/24 07/29/24 11:53 17:03 23:32 POC Capillary Glucose 108 H 121 H 108 H 07/30/24 05:32 POC Capillary Glucose 123 H Quality VTE Prophylaxis VTE prophylaxis: mechanical ordered and pharmacologic ordered -Patient's previous records reviewed on admission -ER notes reviewed in detail on admission -discussed all findings and current treatment plan with patient/Family/POA -Consultations reviewed for recommendations -Patient's disposition for safe discharge discussed with cyanide case hardener Dictation performed by [employer] - [place] direct speech recognition software, therefore site leasing agent variants and typographical errors may occur. Hospitalist MIPS Advance Care Plan I have confirmed that the patient's Advanced Care Plan is present, code status is documented, or surrogate decision maker is listed in patient medical record.: Yes Medication Reconciliation I have utilized all available resources to obtain, update and review the patients current medications (includes all prescriptions, OTC, herbals, cannabis, and nutritional supplements).: Yes The patient is not eligible for med reconciliation; the patient is in a emergent medical situation where delaying treatment would jeopardize the patients health.: No
[2024-07-30 10:52] LABS: Hematocrit 27.4 % (42.0-52.0); Hemoglobin 8.3 g/dL (14.0-18.0); Mean Corpuscular HGB Conc 30.3 g/dl (32-36); Mean Corpuscular Hemoglobin 29.3 pg (26-34); Mean Corpuscular Volume 96.8 fl (80-100); Mean Platelet Volume 11.8 fl (7.4-10.4); Platelet Count Result 282 k/mm3 (150-375); Red Blood Count 2.83 M/mm3 (4.6-6.20); Red Cell Distribution Width 13.6 % (11.5-14.5); White Blood Count 12.6 K/mm3 (4.5-10.0)
[2024-07-30 11:17] LABS: Alanine Aminotransferase 74 U/L (6-50); Albumin Level 2.7 g/dL (3.5-5.1); Alkaline Phosphatase 102 U/L (38-126); Anion Gap 15 mmol/L (4-12); Aspartate Amino Transferase 133 U/L (17-59); Bilirubin,Total 0.4 mg/dL (0.2-1.3); Calcium 8.7 mg/dL (8.4-10.2); Carbon Dioxide 20 mmol/L (22-30); Chloride 117 mmol/L (98-107); Estimated CRCL calculation 7 ml/min; Estimated Glomerular Filt Rate 7; Glucose 207 mg/dL (65-110); Magnesium 2.4 mg/dL (1.6-2.3); Potassium 4.1 mmol/L (3.4-5.0); Sodium 152 mmol/L (137-145)
[2024-07-30 11:28] LABS: Blood Urea Nitrogen 239 mg/dL (9-20)
[2024-07-30 11:32] LABS: Glucose Point of Care 188 mg/dl (65-105)
[2024-07-30] MEDS: PANTOPRAZOLE SODIUM IV 40 MG VIAL IV PUSH (11:44)
[2024-07-30 12:00] VITALS: BP 149/80; PULSE 64; RESP 20; TEMP 36.7; O2SAT 100
[2024-07-30 16:00] VITALS: BP 142/86; PULSE 66; RESP 21; TEMP 36.3; O2SAT 100
[2024-07-30] MEDS: MORPHINE SULFATE (*CRX) 2 MG/ML INJ IV PUSH ×2 (16:34→19:21)
[2024-07-30 17:35] LABS: Glucose Point of Care 143 mg/dl (65-105)
[2024-07-30 19:18] VITALS: BP 190/85; PULSE 88; RESP 26; O2SAT 98
[2024-07-30] MEDS: hydrALAZINE HCL 20 MG/ML VIAL IV PUSH (19:22)
[2024-07-30 21:55] VITALS: BP 180/84
[2024-07-30 23:54] LABS: Glucose Point of Care 145 mg/dl (65-105)
[2024-07-31] VITALS (8 sets, daily range): BP systolic 138–173; BP diastolic 62–91; PULSE 57–93; RESP 18–26; TEMP 35.7–36.7; O2SAT 100; BMI 23.9
[2024-07-31 00:11] LABS: Hematocrit 27.8 % (42.0-52.0); Hemoglobin 8.4 g/dL (14.0-18.0)
[2024-07-31] MEDS: ALBUTEROL SULFATE NEB 2.5 MG/3 ML INH INHALATION (00:23)
[2024-07-31 00:59] LABS: IFOB Positive Control Positive; Immunochemical Fecal Occult Bl Negative (N)
[2024-07-31] MEDS: LACTATED RINGERS 1,000 ML 100 ML IV CONT ×2 (03:54→17:26)
[2024-07-31 04:34] LABS: Glucose Point of Care 136 mg/dl (65-105)
[2024-07-31] MEDS: hydrALAZINE HCL 50 MG TABLET FEED TUBE ×3 (05:40→22:20)
[2024-07-31 06:13] LABS: Hematocrit 27.2 % (42.0-52.0); Hemoglobin 7.9 g/dL (14.0-18.0); Mean Corpuscular Hemoglobin 28.8 pg (26-34); Mean Corpuscular Volume 99.3 fl (80-100); Mean Platelet Volume 11.9 fl (7.4-10.4); Platelet Count Result 249 k/mm3 (150-375); Red Blood Count 2.74 M/mm3 (4.6-6.20); Red Cell Distribution Width 13.5 % (11.5-14.5); White Blood Count 11.3 K/mm3 (4.5-10.0)
[2024-07-31 06:38] LABS: Alanine Aminotransferase 55 U/L (6-50); Albumin Level 2.7 g/dL (3.5-5.1); Alkaline Phosphatase 85 U/L (38-126); Anion Gap 16 mmol/L (4-12); Aspartate Amino Transferase 47 U/L (17-59); Bilirubin,Total 0.4 mg/dL (0.2-1.3); Calcium 8.8 mg/dL (8.4-10.2); Carbon Dioxide 22 mmol/L (22-30); Chloride 117 mmol/L (98-107); Estimated CRCL calculation 7 ml/min; Estimated Glomerular Filt Rate 7; Glucose 133 mg/dL (65-110); Magnesium 2.5 mg/dL (1.6-2.3); Potassium 4.1 mmol/L (3.4-5.0); Sodium 155 mmol/L (137-145)
[2024-07-31 06:54] LABS: Blood Urea Nitrogen 232 mg/dL (9-20)
[2024-07-31] MEDS: HEPARIN SODIUM 5,000 UNITS/ML VIAL 5000 UNITS SUB-Q ×2 (09:28→22:20)
[2024-07-31] MEDS: SEVELAMER CARBONATE 800 MG TABLET FEED TUBE ×3 (09:28→17:27)
[2024-07-31] MEDS: PANTOPRAZOLE SODIUM IV 40 MG VIAL IV PUSH (09:29)
[2024-07-31] MEDS: ATORVASTATIN 20 MG TABLET FEED TUBE (09:29)
--- NOTE | 2024-07-31 09:39 | P.PNIM_ITS ---
Progress Note: A&P Assessment and Plan (1) PEG tube malfunction: Code(s): K94.23 - Gastrostomy malfunction Status: Acute Assessment and Plan: * HX of aspiration * recent placement of peg tube * Dislodged per KUB * GI consulted * placement scheduled 10/31/23 * Tube feeds per NG tube * Monitor electrolytes replenish as needed and adjust flushes as needed for any hypernatremia * Currently in restraints will need ABD binder at discharge to reduce risks of dislodging again patient A&O x1 (2) Renal failure (ARF), acute on chronic: Code(s): N17.9 - Acute kidney failure, unspecified; N18.9 - Chronic kidney disease, unspecified Status: Acute Assessment and Plan: * ESRD * LR IV Fluids * Patient is not a candidate for hemodialysis * Resumed sevelamer carbonate * Avoid nephrotoxic drugs. * Monitor antihypertensive drug therapy. * Avoid NSAIDs. * Routine CMP monitoring GFR. * Monitor electrolytes especially potassium. * Antibiotic doses depending on creatinine clearance. * Pharmacy does medications. * Routine follow-up with Nephrology as an outpatient. (3) Insulin dependent diabetes mellitus: Status: Chronic Assessment and Plan: * Accu-Cheks A6HR on tube feeds * sliding scale insulin * resume patient's home long-acting * Watch for hypoglycemia/hypoglycemic protocol ordered (4) Pneumonia: Code(s): J18.9 - Pneumonia, unspecified organism Status: Acute Assessment and Plan: * KUB showing lower RT lung opacities * mild leukocytosis on admission * will order chest x-ray for review * afebrile and on room air * will hold off on initiating antibiotic therapy until chest x-ray reviewed * however patient does have history of aspiration (5) Hypertension: Code(s): I10 - Essential (primary) hypertension Status: Chronic Assessment and Plan: * patient hypertensive admission * had missed his blood pressure medication * resume hydralazine t.i.d. through tube * added p.r.n. hydralazine for systolic over 180 (6) Dementia: Code(s): F03.90 - Unspecified dementia, unspecified severity, without behavioral disturbance, psychotic disturbance, mood disturbance, and anxiety Status: Acute Assessment and Plan: * Alert and oriented x1 * Minimal * at baseline * Currently in restraints for medical safety pulling out peg tube will need ABD binder at discharge (7) Hypernatremia: Code(s): E87.0 - Hyperosmolality and hypernatremia Status: Acute Assessment and Plan: * NA 155 * Increased water flushes with tube feeds Plan Code status: Full code per patient DVT prophylaxis: Lovenox Stress ulcer prophylaxis: Protonix 40 daily PT/OT notes: bedbound Disposition: Patient continues admission to the medical unit for replacement of dislodged PEG tube scheduled for tomorrow 07/31. will need abdominal binder at discharge plan to return back to [facility] facility once medically stable. Time Spent With Patient Time with patient: 15 - 25 minutes Subjective Date/time seen: 07/31/24 09:39 Interval history: Patient is a 73-year-old male who was admitted to the medical unit for replacement of dislodged PEG tube. 07/31/2024: Assumed care Patient appears more comfortable today, scheduled for replacement of peg tube. will then start trickle feeds to a max fo 50ML. Currently, guardianship papers with the start are in process. hypernatremia today increase water flushes. Review of Systems Review of Systems: ROS unobtainable: Yes unobtainable due to medical condition and unobtainable due to mental status ( Advanced dementia) Exam Narrative: * GENERAL: Alert and oriented x 1 nonverbal. in pain * EYES: EOMI. No scleral icterus. PERRLA. * HEENT: Moist mucous membranes. * LUNGS: Clear to auscultation bilaterally. Use of accessory muscles, tachypnea * CARDIOVASCULAR: Regular rate and rhythm. No murmur. No JVD. S1-S2 * ABDOMEN: Soft, non tenderness and non-distended. healing wound on LUQ * EXTREMITIES: No edema. Non-tender * SKIN: No rashes or lesions. Skin warm, dry. * NEUROLOGIC: No focal neurological deficits. Non-Verbal * PSYCHIATRIC: Unable to assess Objective Data Vital Signs Vital Signs: Vital Signs - 24 hr 07/30/24 12:00 07/30/24 16:00 07/30/24 19:18 Temperature 98.1 F 97.4 F L Pulse Rate 64 66 88 Respiratory Rate 20 21 H 26 H Blood Pressure 149/80 H 142/86 H 190/85 H Pulse Oximetry 100 100 98 Oxygen Delivery Fraction of Inspired Oxygen 07/30/24 21:55 07/31/24 00:25 07/31/24 00:00 Temperature 98.0 F Pulse Rate 93 67 Respiratory Rate 24 H 26 H Blood Pressure 180/84 H 151/67 H Pulse Oximetry 100 Oxygen Delivery Fraction of Inspired Oxygen 07/30/24 20:00 07/31/24 04:00 07/31/24 08:00 Temperature 97.3 F L 96.7 F L Pulse Rate 62 62 Respiratory Rate 24 H 20 Blood Pressure 172/70 H 148/62 H Pulse Oximetry 100 100 Oxygen Delivery Room Air Fraction of Inspired Oxygen 07/31/24 09:04 Temperature Pulse Rate Respiratory Rate Blood Pressure Pulse Oximetry 100 Oxygen Delivery Room Air Fraction of Inspired Oxygen 21 Intake/Output Intake/Output: Intake & Output 07/28/24 07/29/24 07/30/24 07/31/24 23:59 23:59 23:59 23:59 Intake Total 2733.3 2756.6 Output Total 850 600 350 Balance 1883.3 2156.6 -350 Meds/Results Medications: Active Medications Generic Name Dose Route Start Last Admin Trade Name Freq PRN Reason Stop Dose Admin Acetaminophen 650 mg 07/30/24 10:37 Acetaminophen 650 Mg Suppository RECTAL Q6H PRN Mild Pain (1-3) or Fever Hydrocodone Bitart/Acetaminophen 1 tab 07/30/24 14:29 Hydrocodone/Acetaminophen (*Crx) 5-325 Mg Tablet FEED TUBE Q6H PRN Pain Rated 4-6 Atorvastatin Calcium 20 mg 07/30/24 09:00 07/31/24 09:29 Atorvastatin 20 Mg Tablet FEED TUBE 20 mg DAILY URIAH Administration Dextrose 12.5 gm 07/29/24 11:33 Dextrose 50% 25 Gm/50 Ml Syringe IV PUSH PRN PRN Hypoglycemia Protocol Glucagon 1 mg 07/29/24 11:33 Glucagon For Inj 1 Mg Vial IM PRN PRN Hypoglycemia Protocol Glucose 15 gm 07/29/24 11:33 Glucose Oral Gel 15 Gm Of Glucse In 37.5 Gm Tube PO PRN PRN Hypoglycemia Protocol Heparin Sodium (Porcine) 5,000 units 07/29/24 21:00 07/31/24 09:28 Heparin Sodium 5,000 Units/Ml Vial SUB-Q 5,000 units Q12HR URIAH Administration Hydralazine HCl 50 mg 07/29/24 21:00 07/31/24 05:40 Hydralazine Hcl 50 Mg Tablet FEED TUBE 50 mg Q8HR URIAH Administration Hydralazine HCl 20 mg 07/30/24 10:36 07/30/24 19:22 Hydralazine Hcl 20 Mg/Ml Vial IV PUSH 20 mg Q8H PRN Administration Hypertension Lactated Ringer's 1,000 mls @ 100 mls/hr 07/28/24 23:50 07/31/24 03:54 Lr - Lactated Ringers Iv IV CONT 100 mls/hr .Q10H URIAH Administration Dextrose 1,000 mls @ 100 mls/hr 07/29/24 11:33 Dextrose 5% 1,000 Ml IVPB PRN PRN Hypoglycemia Protocol Ceftriaxone Sodium 1 gm in 50 mls @ 100 mls/hr 07/29/24 20:00 07/30/24 19:55 Rocephin 1 Gm/Ns 50 Ml IVPB 08/02/24 19:59 Infused Q24H URIAH Infusion Cefazolin Sodium 1 gm in 50 mls @ 100 mls/hr 07/31/24 09:18 Ancef 1 Gm/Ns 50 Ml IVPB 07/31/24 09:47 ONCE ONE Insulin Aspart 2 - 5 units 07/29/24 12:00 07/31/24 05:40 Insulin Aspart (*Bkc) 100 Units/Ml SUB-Q Not Given Q6HR [facility] Protocol Insulin Glargine 6 units 07/30/24 21:00 07/31/24 03:53 Insulin Glargine (*Bkc) 100 Units/Ml SUB-Q Not Given HS URIAH Morphine Sulfate 2 mg 07/30/24 14:28 07/30/24 19:21 Morphine Sulfate (*Crx) 2 Mg/Ml Inj IV PUSH 2 mg Q4H PRN Administration Pain Rated 7-10 Ondansetron HCl 4 mg 07/30/24 10:37 Ondansetron Inj 4 Mg/2 Ml Vial IV PUSH Q6H PRN Nausea And Vomiting Pantoprazole Sodium 40 mg 07/30/24 10:20 07/31/24 09:29 Pantoprazole Sodium Iv 40 Mg Vial IV PUSH 40 mg QAM URIAH Administration Sevelamer Carbonate 800 mg 07/30/24 08:00 07/31/24 09:28 Sevelamer Carbonate 800 Mg Tablet FEED TUBE 800 mg TIDWM URIAH Administration Radiology Results: ITS Impressions Abdomen X-Ray 07/30/24 07:14 IMPRESSION: 1. Nasogastric tube in stomach. 2. Persistent mild opacities at the right lung base which could represent atelectasis or pneumonia and likely tiny bilateral pleural effusions. Chest X-Ray 07/31/24 05:57 IMPRESSION: 1. Cardiomegaly. Labs Labs: Laboratory Results - last 24 hr 07/30/24 07/30/24 07/30/24 10:44 11:27 17:28 WBC 12.6 H RBC 2.83 L Hgb 8.3 L Hct 27.4 L MCV 96.8 MCH 29.3 MCHC 30.3 L RDW 13.6 Plt Count 282 MPV 11.8 H Sodium 152 H Potassium 4.1 Chloride 117 H Carbon Dioxide 20 L Anion Gap 15 H BUN 239 H Creatinine 8.50 H Estim Creat Clear Calc 7 Estimated GFR 7 L Glucose 207 H POC Capillary Glucose 188 H 143 H Calcium 8.7 Magnesium 2.4 H Total Bilirubin 0.4 AST 133 H ALT 74 H Alkaline Phosphatase 102 Total Protein 7.0 Albumin 2.7 L Stl Occult Blood (IFOB) 07/30/24 07/30/24 07/30/24 22:23 23:05 23:59 WBC RBC Hgb 8.4 L Hct 27.8 L MCV MCH MCHC RDW Plt Count MPV Sodium Potassium Chloride Carbon Dioxide Anion Gap BUN Creatinine Estim Creat Clear Calc Estimated GFR Glucose POC Capillary Glucose 145 H Calcium Magnesium Total Bilirubin AST ALT Alkaline Phosphatase Total Protein Albumin Stl Occult Blood (IFOB) Negative 07/31/24 07/31/24 04:28 05:49 WBC 11.3 H RBC 2.74 L Hgb 7.9 L Hct 27.2 L MCV 99.3 MCH 28.8 MCHC 29.0 L RDW 13.5 Plt Count 249 MPV 11.9 H Sodium 155 H Potassium 4.1 Chloride 117 H Carbon Dioxide 22 Anion Gap 16 H BUN 232 H Creatinine 8.80 H Estim Creat Clear Calc 7 Estimated GFR 7 L Glucose 133 H POC Capillary Glucose 136 H Calcium 8.8 Magnesium 2.5 H Total Bilirubin 0.4 AST 47 ALT 55 H Alkaline Phosphatase 85 Total Protein 7.0 Albumin 2.7 L Stl Occult Blood (IFOB) Quality VTE Prophylaxis VTE prophylaxis: mechanical ordered and pharmacologic ordered -Patient's previous records reviewed on admission -ER notes reviewed in detail on admission -discussed all findings and current treatment plan with patient/Family/POA -Consultations reviewed for recommendations -Patient's disposition for safe discharge discussed with family preservation caseworker Dictation performed by [employer] direct speech recognition software, therefore warehouse guard variants and typographical errors may occur. Hospitalist MIPS Advance Care Plan I have confirmed that the patient's Advanced Care Plan is present, code status is documented, or surrogate decision maker is listed in patient medical record.: Yes Medication Reconciliation I have utilized all available resources to obtain, update and review the patients current medications (includes all prescriptions, OTC, herbals, cannabis, and nutritional supplements).: Yes The patient is not eligible for med reconciliation; the patient is in a emergent medical situation where delaying treatment would jeopardize the patients health.: No
[2024-07-31 11:34] LABS: Glucose Point of Care 114 mg/dl (65-105)
--- NOTE | 2024-07-31 17:15 | P.PNGI_ITS ---
Progress Note: A&P Assessment and Plan (1) PEG tube malfunction: Code(s): K94.23 - Gastrostomy malfunction Status: Acute Assessment and Plan: Unfortunately PEG placement could not be performed today due to lack of anesthesia providers during the afternoon. Will do it tomorrow. Subjective Date/time seen: 07/31/24 17:15 Objective Data Vital Signs Vital Signs: Vital Signs - 24 hr 07/30/24 19:18 07/30/24 21:55 07/31/24 00:25 Temperature Pulse Rate 88 93 Respiratory Rate 26 H 24 H Blood Pressure 190/85 H 180/84 H Pulse Oximetry 98 Oxygen Delivery Fraction of Inspired Oxygen 07/31/24 00:00 07/30/24 20:00 07/31/24 04:00 Temperature 98.0 F 97.3 F L Pulse Rate 67 62 Respiratory Rate 26 H 24 H Blood Pressure 151/67 H 172/70 H Pulse Oximetry 100 100 Oxygen Delivery Room Air Fraction of Inspired Oxygen 07/31/24 08:00 07/31/24 09:04 07/31/24 08:00 Temperature 96.7 F L Pulse Rate 62 62 Respiratory Rate 20 20 Blood Pressure 148/62 H Pulse Oximetry 100 100 100 Oxygen Delivery Room Air Room Air Fraction of Inspired Oxygen 21 21 07/31/24 12:00 07/31/24 16:00 Temperature 96.2 F L 97.3 F L Pulse Rate 63 57 L Respiratory Rate 19 18 Blood Pressure 171/64 H 173/68 H Pulse Oximetry 100 100 Oxygen Delivery Fraction of Inspired Oxygen Intake/Output Intake/Output: Intake & Output 07/28/24 07/29/24 07/30/24 07/31/24 23:59 23:59 23:59 23:59 Intake Total 2733.3 2756.6 Output Total 850 600 700 Balance 1883.3 2156.6 -700 Meds/Results Medications: Active Medications Generic Name Dose Route Start Last Admin Trade Name Freq PRN Reason Stop Dose Admin Acetaminophen 650 mg 07/30/24 10:37 Acetaminophen 650 Mg Suppository RECTAL Q6H PRN Mild Pain (1-3) or Fever Hydrocodone Bitart/Acetaminophen 1 tab 07/30/24 14:29 Hydrocodone/Acetaminophen (*Crx) 5-325 Mg Tablet FEED TUBE Q6H PRN Pain Rated 4-6 Atorvastatin Calcium 20 mg 07/30/24 09:00 07/31/24 09:29 Atorvastatin 20 Mg Tablet FEED TUBE 20 mg DAILY URIAH Administration Collagenase 1 applic 07/31/24 10:45 Collagenase Oint 30 Gm Tube TOPICAL QAM URIAH Dextrose 12.5 gm 07/29/24 11:33 Dextrose 50% 25 Gm/50 Ml Syringe IV PUSH PRN PRN Hypoglycemia Protocol Glucagon 1 mg 07/29/24 11:33 Glucagon For Inj 1 Mg Vial IM PRN PRN Hypoglycemia Protocol Glucose 15 gm 07/29/24 11:33 Glucose Oral Gel 15 Gm Of Glucse In 37.5 Gm Tube PO PRN PRN Hypoglycemia Protocol Heparin Sodium (Porcine) 5,000 units 07/29/24 21:00 07/31/24 09:28 Heparin Sodium 5,000 Units/Ml Vial SUB-Q 5,000 units Q12HR URIAH Administration Hydralazine HCl 50 mg 07/29/24 21:00 07/31/24 05:40 Hydralazine Hcl 50 Mg Tablet FEED TUBE 50 mg Q8HR URIAH Administration Hydralazine HCl 20 mg 07/30/24 10:36 07/30/24 19:22 Hydralazine Hcl 20 Mg/Ml Vial IV PUSH 20 mg Q8H PRN Administration Hypertension Lactated Ringer's 1,000 mls @ 100 mls/hr 07/28/24 23:50 07/31/24 03:54 Lr - Lactated Ringers Iv IV CONT 100 mls/hr .Q10H URIAH Administration Dextrose 1,000 mls @ 100 mls/hr 07/29/24 11:33 Dextrose 5% 1,000 Ml IVPB PRN PRN Hypoglycemia Protocol Ceftriaxone Sodium 1 gm in 50 mls @ 100 mls/hr 07/29/24 20:00 07/30/24 19:55 Rocephin 1 Gm/Ns 50 Ml IVPB 08/02/24 19:59 Infused Q24H URIAH Infusion Insulin Aspart 2 - 5 units 07/29/24 12:00 07/31/24 05:40 Insulin Aspart (*Bkc) 100 Units/Ml SUB-Q Not Given Q6HR URIAH Protocol Insulin Glargine 6 units 07/30/24 21:00 07/31/24 03:53 Insulin Glargine (*Bkc) 100 Units/Ml SUB-Q Not Given HS [facility] Morphine Sulfate 2 mg 07/30/24 14:28 07/30/24 19:21 Morphine Sulfate (*Crx) 2 Mg/Ml Inj IV PUSH 2 mg Q4H PRN Administration Pain Rated 7-10 Ondansetron HCl 4 mg 07/30/24 10:37 Ondansetron Inj 4 Mg/2 Ml Vial IV PUSH Q6H PRN Nausea And Vomiting Pantoprazole Sodium 40 mg 07/30/24 10:20 07/31/24 09:29 Pantoprazole Sodium Iv 40 Mg Vial IV PUSH 40 mg QAM URIAH Administration Sevelamer Carbonate 800 mg 07/30/24 08:00 07/31/24 09:28 Sevelamer Carbonate 800 Mg Tablet FEED TUBE 800 mg TIDWM URIAH Administration Radiology Results: ITS Impressions Abdomen X-Ray 07/30/24 07:14 IMPRESSION: 1. Nasogastric tube in stomach. 2. Persistent mild opacities at the right lung base which could represent atelectasis or pneumonia and likely tiny bilateral pleural effusions. Chest X-Ray 07/31/24 05:57 IMPRESSION: 1. Cardiomegaly. Labs Labs: Laboratory Results - last 24 hr 07/30/24 07/30/24 07/30/24 17:28 22:23 23:05 WBC RBC Hgb Hct MCV MCH MCHC RDW Plt Count MPV Sodium Potassium Chloride Carbon Dioxide Anion Gap BUN Creatinine Estim Creat Clear Calc Estimated GFR Glucose POC Capillary Glucose 143 H 145 H Calcium Magnesium Total Bilirubin AST ALT Alkaline Phosphatase Total Protein Albumin Stl Occult Blood (IFOB) Negative 07/30/24 07/31/24 07/31/24 23:59 04:28 05:49 WBC 11.3 H RBC 2.74 L Hgb 8.4 L 7.9 L Hct 27.8 L 27.2 L MCV 99.3 MCH 28.8 MCHC 29.0 L RDW 13.5 Plt Count 249 MPV 11.9 H Sodium 155 H Potassium 4.1 Chloride 117 H Carbon Dioxide 22 Anion Gap 16 H BUN 232 H Creatinine 8.80 H Estim Creat Clear Calc 7 Estimated GFR 7 L Glucose 133 H POC Capillary Glucose 136 H Calcium 8.8 Magnesium 2.5 H Total Bilirubin 0.4 AST 47 ALT 55 H Alkaline Phosphatase 85 Total Protein 7.0 Albumin 2.7 L Stl Occult Blood (IFOB) 07/31/24 11:24 WBC RBC Hgb Hct MCV MCH MCHC RDW Plt Count MPV Sodium Potassium Chloride Carbon Dioxide Anion Gap BUN Creatinine Estim Creat Clear Calc Estimated GFR Glucose POC Capillary Glucose 114 H Calcium Magnesium Total Bilirubin AST ALT Alkaline Phosphatase Total Protein Albumin Stl Occult Blood (IFOB)
[2024-07-31] MEDS: MORPHINE SULFATE (*CRX) 2 MG/ML INJ IV PUSH (17:25)
[2024-07-31 18:01] LABS: Glucose Point of Care 129 mg/dl (65-105)
[2024-08-01] VITALS (10 sets, daily range): BP systolic 82–179; BP diastolic 40–92; PULSE 55–70; RESP 16–29; TEMP 36.1–36.6; O2SAT 96–100
[2024-08-01 00:22] LABS: Glucose Point of Care 162 mg/dl (65-105)
[2024-08-01] MEDS: LACTATED RINGERS 1,000 ML 100 ML IV CONT ×3 (03:26→20:51)
[2024-08-01 04:58] LABS: Glucose Point of Care 124 mg/dl (65-105)
[2024-08-01] MEDS: hydrALAZINE HCL 50 MG TABLET FEED TUBE (05:20)
[2024-08-01 06:18] LABS: Hematocrit 27.3 % (42.0-52.0); Mean Corpuscular HGB Conc 29.3 g/dl (32-36); Mean Corpuscular Volume 98.9 fl (80-100); Mean Platelet Volume 11.9 fl (7.4-10.4); Platelet Count Result 244 k/mm3 (150-375); Red Blood Count 2.76 M/mm3 (4.6-6.20); Red Cell Distribution Width 13.5 % (11.5-14.5); White Blood Count 11.2 K/mm3 (4.5-10.0)
[2024-08-01 06:34] LABS: Alanine Aminotransferase 41 U/L (6-50); Albumin Level 2.9 g/dL (3.5-5.1); Alkaline Phosphatase 85 U/L (38-126); Anion Gap 14 mmol/L (4-12); Aspartate Amino Transferase 33 U/L (17-59); Bilirubin,Total 0.3 mg/dL (0.2-1.3); Calcium 8.8 mg/dL (8.4-10.2); Carbon Dioxide 20 mmol/L (22-30); Chloride 118 mmol/L (98-107); Estimated CRCL calculation 7 ml/min; Estimated Glomerular Filt Rate 8; Glucose 120 mg/dL (65-110); Magnesium 2.3 mg/dL (1.6-2.3); Potassium 4.3 mmol/L (3.4-5.0); Sodium 152 mmol/L (137-145)
[2024-08-01 06:38] LABS: Blood Urea Nitrogen 222 mg/dL (9-20)
--- NOTE | 2024-08-01 08:51 | P.PNIM_ITS ---
Progress Note: A&P Assessment and Plan (1) PEG tube malfunction: Code(s): K94.23 - Gastrostomy malfunction Status: Acute Assessment and Plan: * HX of aspiration * recent placement of peg tube * Dislodged per KUB * GI consulted * placement scheduled 10/31/23 * Tube feeds per NG tube * Monitor electrolytes replenish as needed and adjust flushes as needed for any hypernatremia * Currently in restraints will need ABD binder at discharge to reduce risks of dislodging again patient A&O x1 08/01/24 * Peg tube placement re-scheduled today * NA slowly improving with increased free water flush (2) Renal failure (ARF), acute on chronic: Code(s): N17.9 - Acute kidney failure, unspecified; N18.9 - Chronic kidney disease, unspecified Status: Acute Assessment and Plan: * ESRD * LR IV Fluids * Patient is not a candidate for hemodialysis * Resumed sevelamer carbonate * Avoid nephrotoxic drugs. * Monitor antihypertensive drug therapy. * Avoid NSAIDs. * Routine CMP monitoring GFR. * Monitor electrolytes especially potassium. * Antibiotic doses depending on creatinine clearance. * Pharmacy does medications. * Routine follow-up with Nephrology as an outpatient. (3) Insulin dependent diabetes mellitus: Status: Chronic Assessment and Plan: * Accu-Cheks A6HR on tube feeds * sliding scale insulin * resume patient's home long-acting * Watch for hypoglycemia/hypoglycemic protocol ordered (4) Pneumonia: Code(s): J18.9 - Pneumonia, unspecified organism Status: Acute Assessment and Plan: * KUB showing lower RT lung opacities * mild leukocytosis on admission * will order chest x-ray for review * afebrile and on room air * will hold off on initiating antibiotic therapy until chest x-ray reviewed * however patient does have history of aspiration (5) Hypertension: Code(s): I10 - Essential (primary) hypertension Status: Chronic Assessment and Plan: * patient hypertensive admission * had missed his blood pressure medication * resume hydralazine t.i.d. through tube * added p.r.n. hydralazine for systolic over 180 08/01/24: * Patient still hypertensive systolic's 170's * increased his hydralazine to 100 TID (6) Dementia: Code(s): F03.90 - Unspecified dementia, unspecified severity, without behavioral disturbance, psychotic disturbance, mood disturbance, and anxiety Status: Acute Assessment and Plan: * Alert and oriented x1 * Minimal * at baseline * Currently in restraints for medical safety pulling out peg tube will need ABD binder at discharge (7) Hypernatremia: Code(s): E87.0 - Hyperosmolality and hypernatremia Status: Acute Assessment and Plan: * NA 155 * Increased water flushes with tube feeds * slow improvement 152 08/01 Plan Code status: Full code per patient DVT prophylaxis: Lovenox Stress ulcer prophylaxis: Protonix 40 daily PT/OT notes: bedbound Disposition: Patient continues admission to the medical unit for replacement of dislodged PEG tube re-scheduled for tomorrow 08/01. will need abdominal binder at discharge plan to return back to group home facility once medically stable. Time Spent With Patient Time with patient: 15 - 25 minutes Subjective Date/time seen: 08/01/24 08:51 Interval history: Patient is a 73-year-old male who was admitted to the medical unit for replacement of dislodged PEG tube. 08/01/2024: Assumed care Peg tube placement cancelled yesterday due to lack of anesthesiologist availability plan for tube placement today. Patient alert and nodding with eye tracking does not appear in acute distress. Review of Systems Review of Systems: ROS unobtainable: Yes unobtainable due to medical condition and unobtainable due to mental status ( Advanced dementia) Exam Narrative: * GENERAL: Alert and oriented x 1 nonverbal. does not appear in acute distress * EYES: EOMI. No scleral icterus. PERRLA. * HEENT: Moist mucous membranes. * LUNGS: Clear to auscultation bilaterally. Use of accessory muscles, tachypnea * CARDIOVASCULAR: Regular rate and rhythm. No murmur. No JVD. S1-S2 * ABDOMEN: Soft, non tenderness and non-distended. healing wound on LUQ * EXTREMITIES: No edema. Non-tender * SKIN: No rashes or lesions. Skin warm, dry. * NEUROLOGIC: No focal neurological deficits. Non-Verbal * PSYCHIATRIC: Unable to assess Objective Data Vital Signs Vital Signs: Vital Signs - 24 hr 07/31/24 09:04 07/31/24 12:00 07/31/24 16:00 Temperature 96.2 F L 97.3 F L Pulse Rate 63 57 L Respiratory Rate 19 18 Blood Pressure 171/64 H 173/68 H Pulse Oximetry 100 100 100 Oxygen Delivery Room Air Fraction of Inspired Oxygen 21 07/31/24 20:00 08/01/24 00:00 07/31/24 20:00 Temperature 97.0 F L 96.9 F L Pulse Rate 64 63 Respiratory Rate 20 26 H Blood Pressure 138/91 H 143/92 H Pulse Oximetry 100 100 Oxygen Delivery Room Air Fraction of Inspired Oxygen 08/01/24 04:00 08/01/24 08:00 Temperature 97.3 F L 97.9 F Pulse Rate 58 L 63 Respiratory Rate 24 H 20 Blood Pressure 178/78 H 174/69 H Pulse Oximetry 96 100 Oxygen Delivery Fraction of Inspired Oxygen Intake/Output Intake/Output: Intake & Output 07/29/24 07/30/24 07/31/24 08/01/24 23:59 23:59 23:59 23:59 Intake Total 2733.3 2756.6 1290 1500 Output Total 850 600 700 500 Balance 1883.3 2156.6 590 1000 Meds/Results Medications: Active Medications Generic Name Dose Route Start Last Admin Trade Name Freq PRN Reason Stop Dose Admin Acetaminophen 650 mg 07/30/24 10:37 Acetaminophen 650 Mg Suppository RECTAL Q6H PRN Mild Pain (1-3) or Fever Hydrocodone Bitart/Acetaminophen 1 tab 07/30/24 14:29 Hydrocodone/Acetaminophen (*Crx) 5-325 Mg Tablet FEED TUBE Q6H PRN Pain Rated 4-6 Atorvastatin Calcium 20 mg 07/30/24 09:00 07/31/24 09:29 Atorvastatin 20 Mg Tablet FEED TUBE 20 mg DAILY URIAH Administration Collagenase 1 applic 07/31/24 10:45 07/31/24 17:17 Collagenase Oint 30 Gm Tube TOPICAL Not Given QAM URIAH Dextrose 12.5 gm 07/29/24 11:33 Dextrose 50% 25 Gm/50 Ml Syringe IV PUSH PRN PRN Hypoglycemia Protocol Glucagon 1 mg 07/29/24 11:33 Glucagon For Inj 1 Mg Vial IM PRN PRN Hypoglycemia Protocol Glucose 15 gm 07/29/24 11:33 Glucose Oral Gel 15 Gm Of Glucse In 37.5 Gm Tube PO PRN PRN Hypoglycemia Protocol Heparin Sodium (Porcine) 5,000 units 07/29/24 21:00 07/31/24 22:20 Heparin Sodium 5,000 Units/Ml Vial SUB-Q 5,000 units Q12HR URIAH Administration Hydralazine HCl 50 mg 07/29/24 21:00 08/01/24 05:20 Hydralazine Hcl 50 Mg Tablet FEED TUBE 50 mg Q8HR URIAH Administration Hydralazine HCl 20 mg 07/30/24 10:36 07/30/24 19:22 Hydralazine Hcl 20 Mg/Ml Vial IV PUSH 20 mg Q8H PRN Administration Hypertension Lactated Ringer's 1,000 mls @ 100 mls/hr 07/28/24 23:50 08/01/24 03:26 Lr - Lactated Ringers Iv IV CONT 100 mls/hr .Q10H URIAH Administration Dextrose 1,000 mls @ 100 mls/hr 07/29/24 11:33 Dextrose 5% 1,000 Ml IVPB PRN PRN Hypoglycemia Protocol Ceftriaxone Sodium 1 gm in 50 mls @ 100 mls/hr 07/29/24 20:00 07/31/24 21:30 Rocephin 1 Gm/Ns 50 Ml IVPB 08/02/24 19:59 Infused Q24H URIAH Infusion Insulin Aspart 2 - 5 units 07/29/24 12:00 08/01/24 05:20 Insulin Aspart (*Bkc) 100 Units/Ml SUB-Q Not Given Q6HR [facility] Protocol Insulin Glargine 6 units 07/30/24 21:00 08/01/24 01:34 Insulin Glargine (*Bkc) 100 Units/Ml SUB-Q Not Given HS URIAH Morphine Sulfate 2 mg 07/30/24 14:28 07/31/24 17:25 Morphine Sulfate (*Crx) 2 Mg/Ml Inj IV PUSH 2 mg Q4H PRN Administration Pain Rated 7-10 Ondansetron HCl 4 mg 07/30/24 10:37 Ondansetron Inj 4 Mg/2 Ml Vial IV PUSH Q6H PRN Nausea And Vomiting Pantoprazole Sodium 40 mg 07/30/24 10:20 11/25/24 09:29 Pantoprazole Sodium Iv 40 Mg Vial IV PUSH 40 mg QAM URIAH Administration Sevelamer Carbonate 800 mg 07/30/24 08:00 07/31/24 17:27 Sevelamer Carbonate 800 Mg Tablet FEED TUBE 800 mg TIDWM URIAH Administration Radiology Results: ITS Impressions Abdomen X-Ray 07/30/24 07:14 IMPRESSION: 1. Nasogastric tube in stomach. 2. Persistent mild opacities at the right lung base which could represent atelectasis or pneumonia and likely tiny bilateral pleural effusions. Chest X-Ray 07/31/24 05:57 IMPRESSION: 1. Cardiomegaly. Labs Labs: Laboratory Results - last 24 hr 07/31/24 07/31/24 08/01/24 11:24 17:57 00:16 WBC RBC Hgb Hct MCV MCH MCHC RDW Plt Count MPV Sodium Potassium Chloride Carbon Dioxide Anion Gap BUN Creatinine Estim Creat Clear Calc Estimated GFR Glucose POC Capillary Glucose 114 H 129 H 162 H Calcium Magnesium Total Bilirubin AST ALT Alkaline Phosphatase Total Protein Albumin 08/01/24 08/01/24 04:00 06:00 WBC 11.2 H RBC 2.76 L Hgb 8.0 L Hct 27.3 L MCV 98.9 MCH 29.0 MCHC 29.3 L RDW 13.5 Plt Count 244 MPV 11.9 H Sodium 152 H Potassium 4.3 Chloride 118 H Carbon Dioxide 20 L Anion Gap 14 H BUN 222 H Creatinine 8.40 H Estim Creat Clear Calc 7 Estimated GFR 8 L Glucose 120 H POC Capillary Glucose 124 H Calcium 8.8 Magnesium 2.3 Total Bilirubin 0.3 AST 33 ALT 41 Alkaline Phosphatase 85 Total Protein 7.0 Albumin 2.9 L Quality VTE Prophylaxis VTE prophylaxis: mechanical ordered and pharmacologic ordered -Patient's previous records reviewed on admission -ER notes reviewed in detail on admission -discussed all findings and current treatment plan with patient/Family/POA -Consultations reviewed for recommendations -Patient's disposition for safe discharge discussed with case resource manager Dictation performed by [employer] direct speech recognition software, therefore mri ct tech variants and typographical errors may occur. Hospitalist MIPS Advance Care Plan I have confirmed that the patient's Advanced Care Plan is present, code status is documented, or surrogate decision maker is listed in patient medical record.: Yes Medication Reconciliation I have utilized all available resources to obtain, update and review the patients current medications (includes all prescriptions, OTC, herbals, cannabis, and nutritional supplements).: Yes The patient is not eligible for med reconciliation; the patient is in a emergent medical situation where delaying treatment would jeopardize the patients health.: No
[2024-08-01] MEDS: PANTOPRAZOLE SODIUM IV 40 MG VIAL IV PUSH (10:18)
--- NOTE | 2024-08-01 10:25 | PCNFU ---
Nutrition Follow-Up Complete: Inadequate energy intake related to NPO with no tube feeding running at this time as evidenced by diet orders, currently dislodged PEG Goal: Meet estimated needs Patient is progressing towards goal. We will continue current goal. Pt current nutrition is NPO. Nutrition recommendation: Nepro at 50 ml/hr. Last recorded weight is 71.4 kg, stable. Bowel Motility: +Bm reported 07/28 Labs Reviewed:Glu 120, BUN 222, Cr 8.4, NA 152, Hct 27.3,Hgb 8.0 Meds Noted:Protonix, LR, Rocephin, Heparin Skin: Deep Tissue-ankle and toe, unstageable-thigh. Additional Notes: Patient to have PEG placed today. Recommend tube feedings of Nepro at 20 ml/hr advance by 10 ml q 4 hours to goal rate of 50 ml/hr. Flush 150 ml q 4 hours. Monitor PEG placement, tube feed starts, tolerance, rate, wt, labs. Follow up every Wednesday and Wednesday.
--- NOTE | 2024-08-01 10:53 | SUR.PREOP ---
Per Dr. De La Rosa, do not give antibiotics in pre-op for PEG placement due to previous G-tube site. Order for Ancef canceled.
[2024-08-01 11:31] LABS: Glucose Point of Care 101 mg/dl (65-105)
[2024-08-01] MEDS: COLLAGENASE OINT 30 GM TUBE 1 APPLIC TOPICAL (12:11)
--- NOTE | 2024-08-01 13:10 | PC.NURSE ---
To GI Lab per NAGA kaufman LFA. Report given to [facility] this Am.
[2024-08-01] MEDS: LACTATED RINGERS 1,000 ML 150 ML IV CONT (13:20)
[2024-08-01 13:23] LABS: Glucose Point of Care 103 mg/dl (65-105)
--- NOTE | 2024-08-01 14:06 | WPDANESEPPF ---
Anes - Initial Pre Proc Eval Procedure: Operation Date: 08/01/24 14:00 Proposed Procedures p Percutaneous Endoscopic Gastrostomy - Donald De La Rosa MD Date/Time: 08/01/24 14:06 Surgeon: Eliana Mendez APRN Pre Op Diagnosis: PEG tube dislodged, LINDSEY on CKD Patient Data Age: 73 Gender: M Height: 1.73 m Weight: 71.4 kg Last Vital Signs Temp 97.2 F L 08/01/24 13:18 Pulse 70 08/01/24 13:18 Resp 18 08/01/24 13:18 BP 166/70 H 08/01/24 13:18 Pulse Ox 100 08/01/24 13:18 O2 Del Method Room Air 08/01/24 13:18 FiO2 21 07/31/24 09:04 Allergies Allergy/AdvReac Type Severity Reaction Status Date / Time No Known Allergies Allergy Verified 07/02/24 09:05 Home Medications Medication Instructions Recorded Confirmed Type glucagon 1 mg solution for 1 mg IM PRN PRN Hypoglycemia 04/28/23 07/29/24 History injection (Glucagon Emergency Kit) insulin regular human 100 unit/mL See Rx Instructions .Route .COMPLEX 07/02/24 07/29/24 History injection solution (Humulin R Regular U-100 Insulin) acetaminophen 325 mg tablet 650 mg feeding tube Q6H PRN Pain 07/21/24 07/29/24 Rx (Scale Score 1-3) #30 tabs atorvastatin 20 mg tablet 20 mg feeding tube DAILY #30 tabs 07/21/24 07/29/24 Rx hydralazine 50 mg tablet 50 mg feeding tube TID #90 tabs 07/21/24 07/29/24 Rx insulin glargine 100 unit/mL 6 unit (0.06 mL) subcut HS #30 mL 07/21/24 07/29/24 Rx subcutaneous solution (Lantus U-100 Insulin) sevelamer carbonate 800 mg tablet 800 mg feeding tube TIDWM #90 tabs 07/21/24 07/29/24 Rx (Renvela) Laboratory Tests 07/31/24 08/01/24 08/01/24 17:57 00:16 04:00 WBC RBC Hgb Hct MCV MCH MCHC RDW Plt Count MPV Sodium Potassium Chloride Carbon Dioxide Anion Gap BUN Creatinine Estim Creat Clear Calc Estimated GFR Glucose POC Capillary Glucose 129 H mg/dl 162 H mg/dl 124 H mg/dl (65-105) (65-105) (65-105) Calcium Magnesium Total Bilirubin AST ALT Alkaline Phosphatase Total Protein Albumin 08/01/24 08/01/24 08/01/24 06:00 11:20 13:20 WBC 11.2 H K/mm3 (4.5-10.0) RBC 2.76 L M/mm3 (4.6-6.20) Hgb 8.0 L g/dL (14.0-18.0) Hct 27.3 L % (42.0-52.0) MCV 98.9 fl (80-100) MCH 29.0 pg (26-34) MCHC 29.3 L g/dl (32-36) RDW 13.5 % (11.5-14.5) Plt Count 244 k/mm3 (150-375) MPV 11.9 H fl (7.4-10.4) Sodium 152 H mmol/L (137-145) Potassium 4.3 mmol/L (3.4-5.0) Chloride 118 H mmol/L (98-107) Carbon Dioxide 20 L mmol/L (22-30) Anion Gap 14 H mmol/L (4-12) BUN 222 H mg/dL (9-20) Creatinine 8.40 H mg/dL (0.7-1.3) Estim Creat Clear Calc 7 ml/min Estimated GFR 8 L (59 - ) Glucose 120 H mg/dL (65-110) POC Capillary Glucose 101 mg/dl 103 mg/dl (65-105) (65-105) Calcium 8.8 mg/dL (8.4-10.2) Magnesium 2.3 mg/dL (1.6-2.3) Total Bilirubin 0.3 mg/dL (0.2-1.3) AST 33 U/L (17-59) ALT 41 U/L (6-50) Alkaline Phosphatase 85 U/L (38-126) Total Protein 7.0 g/dL (6.3-8.2) Albumin 2.9 L g/dL (3.5-5.1) Patient hx anesthesia problems: none Family hx anesthesia problems: none Results Review: All pre-operative results and documents have been reviewed as part of the pre-operative evaluation. [facility] Past Medical History Medical History A-fib Anorexia Aspiration of food Dementia Hypertension Insulin dependent diabetes mellitus Family History Family History Other Unknown family medical history Social History Social History Smoking status: Unknown if ever smoked Second hand tobacco smoke exposure: No Alcohol intake: unknown Substance use: unknown Substance use type: does not use Do You Feel Safe in your Home?: No Lack of Transportation: No Lack of Food: Never True Current Housing: I Have Housing Concerned About Future Housing: No Difficulty Paying Gas/Electric Bills: No Difficulty Paying for Meds: No Currently Unemployed: No Education: Don't Know Difficulty w/ Childcare or Family Care: No Spiritual care concerns: No Anes - Eval Final PreProcedure Day of Procedure 08/01/24 14:06 Patient weight: normal Heart: regular rate and rhythm Lungs: clear to auscultation Airway: Mallampati scale class III Neurological: alert and oriented Last oral intake: >/= 8 hours ASA classification: IV Emergent: no Anesthetic plan: proceed Anesthesia type and monitoring: general GIVS and standard monitoring Results Review: All pre-operative results and documents have been reviewed as part of the pre-operative evaluation. Informed Consent: The patient's anesthetic plan and its attendant risks and benefits were discussed with the patient/family/POA. Questions were solicited and answers provided to the satisfaction of the patient/family/POA.
--- NOTE | 2024-08-01 14:22 | P.PNGI_ITS ---
Progress Note: A&P Assessment and Plan (1) PEG tube malfunction: Code(s): K94.23 - Gastrostomy malfunction Status: Acute Assessment and Plan: The patient is deemed a good candidate for the procedure. Consent signed. Will proceed. Subjective Date/time seen: 08/01/24 14:22 Interval history: The patient is down here for PEG replacement. Review of Systems Review of Systems: All systems reviewed & are unremarkable except as noted in HPI and below Exam Narrative: * GENERAL: Alert and oriented x 1 nonverbal. does not appear in acute distress * EYES: EOMI. No scleral icterus. PERRLA. * HEENT: Moist mucous membranes. * LUNGS: Clear to auscultation bilaterally. Use of accessory muscles, tachypnea * CARDIOVASCULAR: Regular rate and rhythm. No murmur. No JVD. S1-S2 * ABDOMEN: Soft, non tenderness and non-distended. healing wound on LUQ * EXTREMITIES: No edema. Non-tender * SKIN: No rashes or lesions. Skin warm, dry. * NEUROLOGIC: No focal neurological deficits. Non-Verbal * PSYCHIATRIC: Unable to assess Objective Data Vital Signs Vital Signs: Vital Signs - 24 hr 07/31/24 16:00 07/31/24 20:00 08/01/24 00:00 Temperature 97.3 F L 97.0 F L 96.9 F L Pulse Rate 57 L 64 63 Respiratory Rate 18 20 26 H Blood Pressure 173/68 H 138/91 H 143/92 H Pulse Oximetry 100 100 100 Oxygen Delivery 07/31/24 20:00 08/01/24 04:00 08/01/24 08:00 Temperature 97.3 F L 97.9 F Pulse Rate 58 L 63 Respiratory Rate 24 H 20 Blood Pressure 178/78 H 174/69 H Pulse Oximetry 96 100 Oxygen Delivery Room Air 08/01/24 12:00 08/01/24 13:18 Temperature 97.8 F 97.2 F L Pulse Rate 65 70 Respiratory Rate 18 18 Blood Pressure 159/69 H 166/70 H Pulse Oximetry 99 100 Oxygen Delivery Room Air Intake/Output Intake/Output: Intake & Output 07/29/24 07/30/24 07/31/24 08/01/24 23:59 23:59 23:59 23:59 Intake Total 2733.3 2756.6 1290 2500 Output Total 850 600 700 500 Balance 1883.3 2156.6 590 1999 Meds/Results Medications: Active Medications Generic Name Dose Route Start Last Admin Trade Name Freq PRN Reason Stop Dose Admin Acetaminophen 650 mg 07/30/24 10:37 Acetaminophen 650 Mg Suppository RECTAL Q6H PRN Mild Pain (1-3) or Fever Hydrocodone Bitart/Acetaminophen 1 tab 07/30/24 14:29 Hydrocodone/Acetaminophen (*Crx) 5-325 Mg Tablet FEED TUBE Q6H PRN Pain Rated 4-6 Atorvastatin Calcium 20 mg 07/30/24 09:00 08/01/24 10:18 Atorvastatin 20 Mg Tablet FEED TUBE Not Given DAILY URIAH Collagenase 1 applic 07/31/24 10:45 08/01/24 12:11 Collagenase Oint 30 Gm Tube TOPICAL 1 applic QAM URIAH Administration Dextrose 12.5 gm 07/29/24 11:33 Dextrose 50% 25 Gm/50 Ml Syringe IV PUSH PRN PRN Hypoglycemia Protocol Glucagon 1 mg 07/29/24 11:33 Glucagon For Inj 1 Mg Vial IM PRN PRN Hypoglycemia Protocol Glucose 15 gm 07/29/24 11:33 Glucose Oral Gel 15 Gm Of Glucse In 37.5 Gm Tube PO PRN PRN Hypoglycemia Protocol Heparin Sodium (Porcine) 5,000 units 07/29/24 21:00 08/01/24 11:02 Heparin Sodium 5,000 Units/Ml Vial SUB-Q Not Given Q12HR URIAH Hydralazine HCl 20 mg 07/30/24 10:36 07/30/24 19:22 Hydralazine Hcl 20 Mg/Ml Vial IV PUSH 20 mg Q8H PRN Administration Hypertension Hydralazine HCl 100 mg 08/01/24 14:00 Hydralazine Hcl 50 Mg Tablet FEED TUBE Q8HR URIAH Lactated Ringer's 1,000 mls @ 100 mls/hr 07/28/24 23:50 08/01/24 13:11 Lr - Lactated Ringers Iv IV CONT Infused .Q10H URIAH Infusion Dextrose 1,000 mls @ 100 mls/hr 07/29/24 11:33 Dextrose 5% 1,000 Ml IVPB PRN PRN Hypoglycemia Protocol Ceftriaxone Sodium 1 gm in 50 mls @ 100 mls/hr 07/29/24 20:00 07/31/24 21:30 Rocephin 1 Gm/Ns 50 Ml IVPB 08/02/24 19:59 Infused Q24H URIAH Infusion Lactated Ringer's 1,000 mls @ 150 mls/hr 08/01/24 13:20 08/01/24 13:20 Lr - Lactated Ringers Iv IV CONT 150 mls/hr .Q6H40M URIAH Administration Insulin Aspart 2 - 5 units 07/29/24 12:00 08/01/24 11:37 Insulin Aspart (*Bkc) 100 Units/Ml SUB-Q Not Given Q6HR [facility] Protocol Insulin Glargine 6 units 07/30/24 21:00 08/01/24 01:34 Insulin Glargine (*Bkc) 100 Units/Ml SUB-Q Not Given HS [facility] Morphine Sulfate 2 mg 07/30/24 14:28 07/31/24 17:25 Morphine Sulfate (*Crx) 2 Mg/Ml Inj IV PUSH 2 mg Q4H PRN Administration Pain Rated 7-10 Ondansetron HCl 4 mg 07/30/24 10:37 Ondansetron Inj 4 Mg/2 Ml Vial IV PUSH Q6H PRN Nausea And Vomiting Pantoprazole Sodium 40 mg 07/30/24 10:20 08/01/24 10:18 Pantoprazole Sodium Iv 40 Mg Vial IV PUSH 40 mg QAM URIAH Administration Sevelamer Carbonate 800 mg 07/30/24 08:00 08/01/24 11:37 Sevelamer Carbonate 800 Mg Tablet FEED TUBE Not Given TIDWM [facility] Radiology Results: ITS Impressions Abdomen X-Ray 07/30/24 07:14 IMPRESSION: 1. Nasogastric tube in stomach. 2. Persistent mild opacities at the right lung base which could represent atelectasis or pneumonia and likely tiny bilateral pleural effusions. Chest X-Ray 07/31/24 05:57 IMPRESSION: 1. Cardiomegaly. Labs Labs: Laboratory Results - last 24 hr 07/31/24 08/01/24 08/01/24 17:57 00:16 04:00 WBC RBC Hgb Hct MCV MCH MCHC RDW Plt Count MPV Sodium Potassium Chloride Carbon Dioxide Anion Gap BUN Creatinine Estim Creat Clear Calc Estimated GFR Glucose POC Capillary Glucose 129 H 162 H 124 H Calcium Magnesium Total Bilirubin AST ALT Alkaline Phosphatase Total Protein Albumin 08/01/24 08/01/24 08/01/24 06:00 11:20 13:20 WBC 11.2 H RBC 2.76 L Hgb 8.0 L Hct 27.3 L MCV 98.9 MCH 29.0 MCHC 29.3 L RDW 13.5 Plt Count 244 MPV 11.9 H Sodium 152 H Potassium 4.3 Chloride 118 H Carbon Dioxide 20 L Anion Gap 14 H BUN 222 H Creatinine 8.40 H Estim Creat Clear Calc 7 Estimated GFR 8 L Glucose 120 H POC Capillary Glucose 101 103 Calcium 8.8 Magnesium 2.3 Total Bilirubin 0.3 AST 33 ALT 41 Alkaline Phosphatase 85 Total Protein 7.0 Albumin 2.9 L
--- NOTE | 2024-08-01 15:48 | PC.NURSE ---
Returned from GI Lab. Report received from Chelsie PONCE
[2024-08-01] MEDS: SEVELAMER CARBONATE 800 MG TABLET FEED TUBE (16:21)
[2024-08-01 18:05] LABS: Glucose Point of Care 120 mg/dl (65-105)
[2024-08-01 20:41] LABS: Glucose Point of Care 110 mg/dl (65-105)
[2024-08-01] MEDS: hydrALAZINE HCL 50 MG TABLET 100 MG FEED TUBE (20:51)
[2024-08-01] MEDS: HEPARIN SODIUM 5,000 UNITS/ML VIAL 5000 UNITS SUB-Q (20:51)
--- NOTE | 2024-08-01 22:29 | PC.NURSE ---
Got report from Stephanie who stated that tube feeding was started around 4 pm at 20 ml/hr. Order is to increase tube feeding by 10 ml/hr every 4 hrs with goal rate being 50ml/hr. Around 8:45 pm residual was checked prior to increasing the tube feeding. Residual abount was 180mls. Tube feeding was increased to 30ml/hr. Residual will be checked prior to next feeding increase at 12:45.
[2024-08-02] VITALS: BP 186/74; PULSE 67; RESP 24; TEMP 36.2; O2SAT 100
--- NOTE | 2024-08-02 00:16 | PC.NURSE ---
Residual check was 90 ml. Tube feeding increased by 10 ml per orders. Tube feeding rate from 30ml to 40 ml/hr.
[2024-08-02 00:32] LABS: Glucose Point of Care 150 mg/dl (65-105)
[2024-08-02] MEDS: hydrALAZINE HCL 20 MG/ML VIAL IV PUSH (00:39)
[2024-08-02 04:00] VITALS: BP 175/70; PULSE 76; RESP 24; TEMP 36.8; O2SAT 98
--- NOTE | 2024-08-02 04:35 | PC.NURSE ---
Residual checked and was 140 mls. Rate was increased by 10ml per orders. pt now at goal rate of 50ml.
[2024-08-02] MEDS: hydrALAZINE HCL 50 MG TABLET 100 MG FEED TUBE ×3 (05:12→21:45)
[2024-08-02 05:32] LABS: Glucose Point of Care 163 mg/dl (65-105)
[2024-08-02 07:27] LABS: Hematocrit 27.3 % (42.0-52.0); Mean Corpuscular HGB Conc 29.3 g/dl (32-36); Mean Corpuscular Hemoglobin 28.9 pg (26-34); Mean Corpuscular Volume 98.6 fl (80-100); Platelet Count Result 242 k/mm3 (150-375); Red Blood Count 2.77 M/mm3 (4.6-6.20); Red Cell Distribution Width 13.8 % (11.5-14.5)
[2024-08-02 07:49] LABS: Alanine Aminotransferase 28 U/L (6-50); Albumin Level 2.8 g/dL (3.5-5.1); Alkaline Phosphatase 85 U/L (38-126); Anion Gap 14 mmol/L (4-12); Aspartate Amino Transferase 28 U/L (17-59); Bilirubin,Total 0.4 mg/dL (0.2-1.3); Calcium 8.9 mg/dL (8.4-10.2); Carbon Dioxide 22 mmol/L (22-30); Chloride 117 mmol/L (98-107); Estimated CRCL calculation 7 ml/min; Estimated Glomerular Filt Rate 8; Glucose 196 mg/dL (65-110); Magnesium 2.2 mg/dL (1.6-2.3); Potassium 4.3 mmol/L (3.4-5.0); Sodium 153 mmol/L (137-145)
[2024-08-02 07:51] LABS: Blood Urea Nitrogen 219 mg/dL (9-20)
[2024-08-02 08:00] VITALS: BP 173/73; PULSE 75; RESP 24; TEMP 36.5; O2SAT 100
--- NOTE | 2024-08-02 08:02 | WPDANESPN ---
Anes - Prog Note Post-Op Date/Time: 08/02/24 08:02 Cardiovascular status: normal Respiratory status: normal Airway patency: baseline Mental status: baseline Post-Op hydration status: normal Vital Signs: Last Vital Signs Temp 36.5 C 08/02/24 08:00 Pulse 75 08/02/24 08:00 Resp 24 H 08/02/24 08:00 BP 173/73 H 08/02/24 08:00 Pulse Ox 100 08/02/24 08:00 O2 Del Method Room Air 08/01/24 20:00 FiO2 21 08/01/24 20:00 Pain Score (VAS): 0 I/O: Intake & Output 08/01/24 08/02/24 08/02/24 23:59 07:59 15:59 Intake Total 433.3 Output Total 500 Balance 433.3 -500 Laboratory Tests 08/02/24 07:17 08/02/24 07:17 08/01/24 08/01/24 08/01/24 11:20 13:20 18:02 WBC RBC Hgb Hct MCV MCH MCHC RDW Plt Count MPV Sodium Potassium Chloride Carbon Dioxide Anion Gap BUN Creatinine Estim Creat Clear Calc Estimated GFR Glucose POC Capillary Glucose 101 103 120 H Calcium Magnesium Total Bilirubin AST ALT Alkaline Phosphatase Total Protein Albumin 08/01/24 08/02/24 08/02/24 20:38 00:24 05:04 WBC RBC Hgb Hct MCV MCH MCHC RDW Plt Count MPV Sodium Potassium Chloride Carbon Dioxide Anion Gap BUN Creatinine Estim Creat Clear Calc Estimated GFR Glucose POC Capillary Glucose 110 H 150 H 163 H Calcium Magnesium Total Bilirubin AST ALT Alkaline Phosphatase Total Protein Albumin 08/02/24 07:17 WBC 18.0 H RBC 2.77 L Hgb 8.0 L Hct 27.3 L MCV 98.6 MCH 28.9 MCHC 29.3 L RDW 13.8 Plt Count 242 MPV 12.0 H Sodium 153 H Potassium 4.3 Chloride 117 H Carbon Dioxide 22 Anion Gap 14 H BUN 219 H Creatinine 8.00 H Estim Creat Clear Calc 7 Estimated GFR 8 L Glucose 196 H POC Capillary Glucose Calcium 8.9 Magnesium 2.2 Total Bilirubin 0.4 AST 28 ALT 28 Alkaline Phosphatase 85 Total Protein 6.0 L Albumin 2.8 L Post-procedural complaints: none Patient Feedback: Patient satisfied with anesthetic care.
[2024-08-02] MEDS: HEPARIN SODIUM 5,000 UNITS/ML VIAL 5000 UNITS SUB-Q ×2 (08:19→21:45)
[2024-08-02] MEDS: COLLAGENASE OINT 30 GM TUBE 1 APPLIC TOPICAL (08:19)
[2024-08-02] MEDS: ATORVASTATIN 20 MG TABLET FEED TUBE (08:19)
[2024-08-02] MEDS: SEVELAMER CARBONATE 0.8 GM 1 EACH FEED TUBE ×3 (08:38→16:32)
--- NOTE | 2024-08-02 09:25 | P.PNIM_ITS ---
Progress Note: A&P Assessment and Plan (1) PEG tube malfunction: Code(s): K94.23 - Gastrostomy malfunction Status: Acute Assessment and Plan: * HX of aspiration * recent placement of peg tube * Dislodged per KUB * GI consulted * placement scheduled 10/31/23 * Tube feeds per NG tube * Monitor electrolytes replenish as needed and adjust flushes as needed for any hypernatremia * Currently in restraints will need ABD binder at discharge to reduce risks of dislodging again patient A&O x1 * Peg tube placement 08/01 * NA slowly improving with increased free water flush * Increased FWF to 150 ml (2) Renal failure (ARF), acute on chronic: Code(s): N17.9 - Acute kidney failure, unspecified; N18.9 - Chronic kidney disease, unspecified Status: Acute Assessment and Plan: * ESRD * LR IV Fluids * Patient is not a candidate for hemodialysis * Resumed sevelamer carbonate * Avoid nephrotoxic drugs. * Monitor antihypertensive drug therapy. * Avoid NSAIDs. * Routine CMP monitoring GFR. * Monitor electrolytes especially potassium. * Antibiotic doses depending on creatinine clearance. * Pharmacy does medications. * Routine follow-up with Nephrology as an outpatient. (3) Insulin dependent diabetes mellitus: Status: Chronic Assessment and Plan: * Accu-Cheks A6HR on tube feeds * sliding scale insulin * resume patient's home long-acting * Watch for hypoglycemia/hypoglycemic protocol ordered (4) Pneumonia: Code(s): J18.9 - Pneumonia, unspecified organism Status: Acute Assessment and Plan: * KUB showing lower RT lung opacities * mild leukocytosis on admission * will order chest x-ray for review * afebrile and on room air * was on Rocephin. WBC increased to 18.8 with elevation in procalcitonin of 3.8 and elevated CRP * Blood cultures drawn * Broadened to Meropenem to cover for ESBL as urine is cloudy, hull-yellow with sediment present. Added atypical pna coverage with azithromycin for 5 days. * CT chest shows area of consolidation to lateral, basilar right lower lobe with small bilateral pleural effusions (5) Hypertension: Code(s): I10 - Essential (primary) hypertension Status: Chronic Assessment and Plan: * patient hypertensive admission * had missed his blood pressure medication * resume hydralazine t.i.d. through tube * added p.r.n. hydralazine for systolic over 180 * Patient still hypertensive systolic's 170's * increased his hydralazine to 100 TID * Added low dose amlodipine 5 mg daily. Patient was on this last admission but medication was stopped due to low blood pressure. (6) Dementia: Code(s): F03.90 - Unspecified dementia, unspecified severity, without behavioral disturbance, psychotic disturbance, mood disturbance, and anxiety Status: Acute Assessment and Plan: * Alert and oriented x1 * Minimal * at baseline (7) Hypernatremia: Code(s): E87.0 - Hyperosmolality and hypernatremia Status: Acute Assessment and Plan: * NA 153 * Increased free water flush to 150 ml every four hours * daily bmp (8) Acute UTI: Code(s): N39.0 - Urinary tract infection, site not specified Status: Acute Assessment and Plan: Urine in roth tubing is cloudy yellow-hull with sediment and mucous present. Concerns for possible recurrent UTI. * History of ESBL and WBC is increasing despite Rocephin. * UA ordered, blood cultures pending * Switched to meropenem * CT abdomen and pelvis shows bladder wall thickening and haziness to surrounding fat suggestive of cystitis acute or chronic. Plan Code status: Full code per patient DVT prophylaxis: Lovenox Stress ulcer prophylaxis: Protonix 40 daily PT/OT notes: bedbound Disposition: Patient continues admission to the medical unit for replacement of dislodged PEG tube re-scheduled for tomorrow 08/01. will need abdominal binder at discharge plan to return back to [facility] facility once medically stable. Subjective Date/time seen: 08/02/24 09:25 Interval history: Patient is resting in bed and yes open to verbal stimuli. Patient is nonverbal but makes grunting noises to questioning. Review of Systems Review of Systems: ROS unobtainable: Yes unobtainable due to medical condition and unobtainable due to mental status ( Advanced dementia) Exam Narrative: General: appears comfortable, in no acute distress Respiratory: breathing is unlabored with even chest rise/fall, lungs are clear without wheezing, rhonchi, and crackles Cardiovascular: Rate and rhythm regular, normal s1s2, no murmur Abdomen: Soft, round, non-tender, active bowel sounds, g-tube with abdominal binder in place Extremities: No cyanosis, dependent pitting edema to bilateral upper extremities +1-2, no clubbing. Pulses 2/2 Neuro: Alert and non-verbal, moves all extremities with generalized weakness. Skin: Warm, dry, intact Objective Data Vital Signs Vital Signs: Vital Signs - 24 hr 08/01/24 12:00 08/01/24 13:18 08/01/24 14:58 Temperature 97.8 F 97.2 F L Pulse Rate 65 70 56 L Respiratory Rate 18 18 29 H Blood Pressure 159/69 H 166/70 H 82/41 L Pulse Oximetry 99 100 100 Oxygen Delivery Room Air Room Air Fraction of Inspired Oxygen 08/01/24 15:08 08/01/24 15:18 08/01/24 15:48 Temperature 97.6 F Pulse Rate 55 L 60 61 Respiratory Rate 29 H 23 H 16 Blood Pressure 94/40 L 129/60 164/68 H Pulse Oximetry 100 100 99 Oxygen Delivery Room Air Room Air Fraction of Inspired Oxygen 08/01/24 20:00 08/01/24 20:00 08/02/24 00:00 Temperature 97.0 F L 97.2 F L Pulse Rate 66 66 67 Respiratory Rate 16 16 24 H Blood Pressure 179/87 H 186/74 H Pulse Oximetry 100 100 100 Oxygen Delivery Room Air Fraction of Inspired Oxygen 21 08/02/24 04:00 08/02/24 08:00 Temperature 98.2 F 97.7 F Pulse Rate 76 75 Respiratory Rate 24 H 24 H Blood Pressure 175/70 H 173/73 H Pulse Oximetry 98 100 Oxygen Delivery Fraction of Inspired Oxygen Intake/Output Intake/Output: Intake & Output 07/30/24 07/31/24 08/01/24 08/02/24 23:59 23:59 23:59 23:59 Intake Total 2756.6 1290 3133.3 Output Total 312 163 7555 500 Balance 2156.6 590 2083.3 -500 Meds/Results Medications: Active Medications Generic Name Dose Route Start Last Admin Trade Name Freq PRN Reason Stop Dose Admin Acetaminophen 650 mg 07/30/24 10:37 Acetaminophen 650 Mg Suppository RECTAL Q6H PRN Mild Pain (1-3) or Fever Hydrocodone Bitart/Acetaminophen 1 tab 07/30/24 14:29 Hydrocodone/Acetaminophen (*Crx) 5-325 Mg Tablet FEED TUBE Q6H PRN Pain Rated 4-6 Atorvastatin Calcium 20 mg 07/30/24 09:00 08/02/24 08:19 Atorvastatin 20 Mg Tablet FEED TUBE 20 mg DAILY URIAH Administration Collagenase 1 applic 07/31/24 10:45 08/02/24 08:19 Collagenase Oint 30 Gm Tube TOPICAL 1 applic QAM URIAH Administration Dextrose 12.5 gm 07/29/24 11:33 Dextrose 50% 25 Gm/50 Ml Syringe IV PUSH PRN PRN Hypoglycemia Protocol Glucagon 1 mg 07/29/24 11:33 Glucagon For Inj 1 Mg Vial IM PRN PRN Hypoglycemia Protocol Glucose 15 gm 07/29/24 11:33 Glucose Oral Gel 15 Gm Of Glucse In 37.5 Gm Tube PO PRN PRN Hypoglycemia Protocol Heparin Sodium (Porcine) 5,000 units 07/29/24 21:00 08/02/24 08:19 Heparin Sodium 5,000 Units/Ml Vial SUB-Q 5,000 units Q12HR URIAH Administration Hydralazine HCl 20 mg 07/30/24 10:36 08/02/24 00:39 Hydralazine Hcl 20 Mg/Ml Vial IV PUSH 20 mg Q8H PRN Administration Hypertension Hydralazine HCl 100 mg 08/01/24 14:00 08/02/24 05:12 Hydralazine Hcl 50 Mg Tablet FEED TUBE 100 mg Q8HR URIAH Administration Lactated Ringer's 1,000 mls @ 100 mls/hr 07/28/24 23:50 08/01/24 20:51 Lr - Lactated Ringers Iv IV CONT 100 mls/hr .Q10H URIAH Administration Dextrose 1,000 mls @ 100 mls/hr 07/29/24 11:33 Dextrose 5% 1,000 Ml IVPB PRN PRN Hypoglycemia Protocol Ceftriaxone Sodium 1 gm in 50 mls @ 100 mls/hr 07/29/24 20:00 08/01/24 20:51 Rocephin 1 Gm/Ns 50 Ml IVPB 08/02/24 19:59 100 mls/hr Q24H URIAH Administration Insulin Aspart 2 - 5 units 07/29/24 12:00 08/02/24 05:14 Insulin Aspart (*Bkc) 100 Units/Ml SUB-Q Not Given Q6HR [facility] Protocol Insulin Glargine 6 units 07/30/24 21:00 08/01/24 20:39 Insulin Glargine (*Bkc) 100 Units/Ml SUB-Q Not Given HS [facility] Morphine Sulfate 2 mg 07/30/24 14:28 07/31/24 17:25 Morphine Sulfate (*Crx) 2 Mg/Ml Inj IV PUSH 2 mg Q4H PRN Administration Pain Rated 7-10 Nonform Sevelamer 1 each 08/02/24 08:00 08/02/24 08:38 Carbonate 0.8gm FEED TUBE 09/01/24 07:59 1 each Powder Packet TIDWM [facility] Administration Ondansetron HCl 4 mg 07/30/24 10:37 Ondansetron Inj 4 Mg/2 Ml Vial IV PUSH Q6H PRN Nausea And Vomiting Radiology Results: ITS Impressions Abdomen X-Ray 07/30/24 07:14 IMPRESSION: 1. Nasogastric tube in stomach. 2. Persistent mild opacities at the right lung base which could represent atelectasis or pneumonia and likely tiny bilateral pleural effusions. Chest X-Ray 07/31/24 05:57 IMPRESSION: 1. Cardiomegaly. Labs Labs: Laboratory Results - last 24 hr 08/01/24 08/01/24 08/01/24 11:20 13:20 18:02 WBC RBC Hgb Hct MCV MCH MCHC RDW Plt Count MPV Sodium Potassium Chloride Carbon Dioxide Anion Gap BUN Creatinine Estim Creat Clear Calc Estimated GFR Glucose POC Capillary Glucose 101 103 120 H Calcium Magnesium Total Bilirubin AST ALT Alkaline Phosphatase Total Protein Albumin 08/01/24 08/02/24 08/02/24 20:38 00:24 05:04 WBC RBC Hgb Hct MCV MCH MCHC RDW Plt Count MPV Sodium Potassium Chloride Carbon Dioxide Anion Gap BUN Creatinine Estim Creat Clear Calc Estimated GFR Glucose POC Capillary Glucose 110 H 150 H 163 H Calcium Magnesium Total Bilirubin AST ALT Alkaline Phosphatase Total Protein Albumin 08/02/24 07:17 WBC 18.0 H RBC 2.77 L Hgb 8.0 L Hct 27.3 L MCV 98.6 MCH 28.9 MCHC 29.3 L RDW 13.8 Plt Count 242 MPV 12.0 H Sodium 153 H Potassium 4.3 Chloride 117 H Carbon Dioxide 22 Anion Gap 14 H BUN 219 H Creatinine 8.00 H Estim Creat Clear Calc 7 Estimated GFR 8 L Glucose 196 H POC Capillary Glucose Calcium 8.9 Magnesium 2.2 Total Bilirubin 0.4 AST 28 ALT 28 Alkaline Phosphatase 85 Total Protein 6.0 L Albumin 2.8 L Quality VTE Prophylaxis VTE prophylaxis: mechanical ordered and pharmacologic ordered
[2024-08-02 09:41] LABS: Basophils Percent Auto 0.2 % (0.2-1.2); Eosinophils Percent Auto 0.1 % (0-4.4); Immature Granulocyte Absolute 0.15 K/mm3 (0.00-0.031); Immature Granulocyte Percent A 0.8 % (0-0.5); Lymphocytes Absolute Auto 0.82 K/mm3 (0.9-3.2); Lymphocytes Percent Auto 4.6 % (18.3-44.2); Monocytes Absolute Auto 0.6 K/mm3 (0.1-0.6); Monocytes Percent Auto 3.4 % (2.6-8.5); Neutrophils Absolute Auto 16.2 K/mm3 (1.3-6.7); Neutrophils Percent Auto 90.9 % (45.5-73.1)
[2024-08-02 10:19] LABS: CRP 4.6 mg/dL (<1.0)
[2024-08-02 10:32] LABS: Procalcitonin 3.1 ng/mL
[2024-08-02 11:46] LABS: Glucose Point of Care 176 mg/dl (65-105)
[2024-08-02 12:00] VITALS: BP 166/77; PULSE 71; RESP 22; TEMP 36.6; O2SAT 100
[2024-08-02 16:00] VITALS: BP 162/66; PULSE 68; RESP 20; TEMP 36.3; O2SAT 100
[2024-08-02] MEDS: MEROPENEM 500 MG/NS 100 ML 500 MG/100 ML BAG 200 MG IVPB (17:41)
[2024-08-02] MEDS: amLODIPine BESYLATE 5 MG TABLET PO (17:43)
[2024-08-02 17:57] LABS: Glucose Point of Care 210 mg/dl (65-105)
[2024-08-02] MEDS: AZITHROMYCIN 250 MG TABLET 500 MG FEED TUBE (18:11)
[2024-08-02] MEDS: INSULIN ASPART (*BKC) 100 UNITS/ML SUB-Q (18:12)
[2024-08-02 18:14] LABS: Add Urine Microscopic? YES; Appearance Urine Turbid (Clear); Bacteria Urine 4+ /hpf; Bilirubin Urine Negative (Negative); Blood Urine Negative (Negative); Color Urine Yellow (Yellow); Glucose Urine UA 1+ mg/dL (Negative); Ketones Urine Negative (Negative); Leukocyte Esterase Ur 3+ LEU/UL (Negative); Mucus Urine Present /lpf; Need Manual Microscopic Reviewed; Nitrate Urine Positive (Negative); Protein Urine 2+ mg/dL (Negative); RBC Urine 0-2 /hpf (0-2); Specific Grav Ur 1.013 (1.001-1.035); Squamous Epithelial Cell Urine None Seen /hpf (Few); Urobilinogen Urine 0.2 mg/dL (<2.0); WBC Urine 51-100 /hpf (0-3)
[2024-08-02 20:00] VITALS: BP 156/62; PULSE 65; RESP 22; TEMP 36.4; O2SAT 100
[2024-08-02 23:23] LABS: Glucose Point of Care 193 mg/dl (65-105)
[2024-08-02] MEDS: INSULIN GLARGINE (*BKC) 100 UNITS/ML 6 UNITS SUB-Q (23:44)
[2024-08-03] VITALS (7 sets, daily range): BP systolic 134–169; BP diastolic 56–68; PULSE 54–69; RESP 17–24; TEMP 35.9–37.1; O2SAT 96–100
[2024-08-03] MEDS: INSULIN ASPART (*BKC) 100 UNITS/ML SUB-Q ×2 (05:39→17:58)
[2024-08-03] MEDS: hydrALAZINE HCL 50 MG TABLET 100 MG FEED TUBE ×3 (05:43→23:51)
[2024-08-03 05:47] LABS: Glucose Point of Care 216 mg/dl (65-105)
[2024-08-03 06:50] LABS: Hematocrit 25.1 % (42.0-52.0); Hemoglobin 7.3 g/dL (14.0-18.0); Mean Corpuscular HGB Conc 29.1 g/dl (32-36); Mean Corpuscular Hemoglobin 29.7 pg (26-34); Mean Platelet Volume 13.3 fl (7.4-10.4); Platelet Count Result 203 k/mm3 (150-375); Red Blood Count 2.46 M/mm3 (4.6-6.20); Red Cell Distribution Width 14.1 % (11.5-14.5); White Blood Count 14.1 K/mm3 (4.5-10.0)
[2024-08-03 07:03] LABS: Alanine Aminotransferase 25 U/L (6-50); Albumin Level 2.6 g/dL (3.5-5.1); Alkaline Phosphatase 101 U/L (38-126); Anion Gap 13 mmol/L (4-12); Aspartate Amino Transferase 34 U/L (17-59); Bilirubin,Total 0.3 mg/dL (0.2-1.3); Calcium 8.5 mg/dL (8.4-10.2); Carbon Dioxide 22 mmol/L (22-30); Chloride 117 mmol/L (98-107); Estimated CRCL calculation 7 ml/min; Estimated Glomerular Filt Rate 8; Glucose 215 mg/dL (65-110); Magnesium 2.3 mg/dL (1.6-2.3); Phosphorus 7.1 mg/dL (2.5-4.5); Sodium 152 mmol/L (137-145)
[2024-08-03 07:14] LABS: Blood Urea Nitrogen 221 mg/dL (9-20)
[2024-08-03] MEDS: ATORVASTATIN 20 MG TABLET FEED TUBE (09:42)
[2024-08-03] MEDS: AZITHROMYCIN 250 MG TABLET 500 MG FEED TUBE (09:42)
[2024-08-03] MEDS: amLODIPine BESYLATE 5 MG TABLET PO (09:42)
[2024-08-03] MEDS: HEPARIN SODIUM 5,000 UNITS/ML VIAL 5000 UNITS SUB-Q ×2 (09:42→21:45)
[2024-08-03] MEDS: SEVELAMER CARBONATE 0.8 GM 1 EACH FEED TUBE ×3 (09:43→17:30)
--- NOTE | 2024-08-03 09:43 | P.PNIM_ITS ---
Progress Note: A&P Assessment and Plan (1) PEG tube malfunction: Code(s): K94.23 - Gastrostomy malfunction Status: Acute Assessment and Plan: * HX of aspiration * recent placement of peg tube * Dislodged per KUB * GI consulted * Tube feeds per NG tube * Monitor electrolytes replenish as needed and adjust flushes as needed for any hypernatremia * Peg tube placement 08/01 * NA slowly improving with increased free water flush * Increased FWF to 200 ml on 08/03 (2) Renal failure (ARF), acute on chronic: Code(s): N17.9 - Acute kidney failure, unspecified; N18.9 - Chronic kidney disease, unspecified Status: Acute Assessment and Plan: * ESRD * Patient is not a candidate for hemodialysis--from Dr Weiner's note on 07/19/24 considering his mental status and considerable morbidity related to starting dialysis especially with the high risk of placing a catheter in general, it would seem that the risks HD catheter placement as well as dialysis far exceeds the benefit, . * Patient's facility is working to on obtaining guardianship and then patient will be made DNR. * Renvela was stopped for some reason, maybe due to displaced g-tube. Will resume phosphorus binder now. * Avoid nephrotoxic drugs. * Monitor antihypertensive drug therapy. * Avoid NSAIDs. * Routine CMP monitoring GFR. * Monitor electrolytes especially potassium. * Antibiotic doses depending on creatinine clearance. * Pharmacy does medications. * Routine follow-up with Nephrology as an outpatient. (3) Insulin dependent diabetes mellitus: Status: Chronic Assessment and Plan: * Accu-Cheks A6HR on tube feeds * sliding scale insulin * resume patient's home long-acting * Watch for hypoglycemia/hypoglycemic protocol ordered (4) Pneumonia: Code(s): J18.9 - Pneumonia, unspecified organism Status: Acute Assessment and Plan: * KUB showing lower RT lung opacities * mild leukocytosis on admission * will order chest x-ray for review * afebrile and on room air * was on Rocephin. WBC increased to 18.8 with elevation in procalcitonin of 3.8 and elevated CRP * Blood cultures drawn * Broadened to Meropenem to cover for ESBL as urine is cloudy, hull-yellow with sediment present. Added atypical PNA coverage with azithromycin for 5 days. * CT chest shows area of consolidation to lateral, basilar right lower lobe with small bilateral pleural effusions * He sounds more congested today. Will start CPT vest therapy, add Mucinex. (5) Hypertension: Code(s): I10 - Essential (primary) hypertension Status: Chronic Assessment and Plan: * patient hypertensive admission * had missed his blood pressure medication * resume hydralazine t.i.d. through tube * added p.r.n. hydralazine for systolic over 180 * Patient still hypertensive systolic's 170's * increased his hydralazine to 100 TID * Added low dose amlodipine 5 mg daily. Patient was on this last admission but medication was stopped due to low blood pressure. * Blood pressure marginally better (6) Dementia: Code(s): F03.90 - Unspecified dementia, unspecified severity, without behavioral disturbance, psychotic disturbance, mood disturbance, and anxiety Status: Acute Assessment and Plan: * Alert and oriented x1 * at baseline (7) Hypernatremia: Code(s): E87.0 - Hyperosmolality and hypernatremia Status: Acute Assessment and Plan: * NA 152 * Increased free water flush to 200 ml every four hours * given his renal function, opted not to give D5W at this time. Hopefully FWF adjustments will show improvement. * daily bmp (8) Acute UTI: Code(s): N39.0 - Urinary tract infection, site not specified Status: Acute Assessment and Plan: Urine in roth tubing is cloudy yellow-hull with sediment and mucous present. Concerns for possible recurrent UTI. * History of ESBL and WBC is increasing despite Rocephin. * UA ordered and looks infected, blood cultures pending * Switched to meropenem * Likely will need midline placed for IV antibiotics at discharge should culture grow ESBL again. Awaiting blood cultures to result. * CT abdomen and pelvis shows bladder wall thickening and haziness to surrounding fat suggestive of cystitis acute or chronic. Plan Code status: Full code per patient DVT prophylaxis: Lovenox Stress ulcer prophylaxis: Protonix 40 daily PT/OT notes: bedbound Disposition: Patient continues admission to the medical unit for replacement of dislodged PEG tube re-scheduled for tomorrow 08/01. will need abdominal binder at discharge plan to [facility] once medically stable. Subjective Date/time seen: 08/03/24 09:43 Interval history: No acute events overnight. He is at his baseline mental status. Urine looks less cloudy and purulent today. He sounds more congested today. Review of Systems Review of Systems: ROS unobtainable: Yes unobtainable due to medical condition and unobtainable due to mental status ( Advanced dementia) Exam Narrative: General: appears comfortable, in no acute distress, resting with eyes closed, awakes to tactile stimuli Respiratory: breathing is unlabored with even chest rise/fall, lungs are coarse without wheezing or rhonchi. Cardiovascular: Rate and rhythm regular, normal s1s2, no murmur Abdomen: Soft, round, non-tender, active bowel sounds, g-tube with abdominal binder in place Extremities: No cyanosis, dependent pitting edema to bilateral upper extremities +1-2, no clubbing. Pulses 2/2 Neuro: Alert and non-verbal, moves all extremities with generalized weakness. Skin: Warm, dry, intact. Left gluteus with pressure related ulcer with eschar wound bed Objective Data Vital Signs Vital Signs: Vital Signs - 24 hr 08/02/24 12:00 08/02/24 16:00 08/02/24 20:00 Temperature 97.8 F 97.3 F L 97.5 F L Pulse Rate 71 68 65 Respiratory Rate 22 H 20 22 H Blood Pressure 166/77 H 162/66 H 156/62 H Pulse Oximetry 100 100 100 Oxygen Delivery 08/02/24 20:00 08/03/24 00:00 08/03/24 04:00 Temperature 97.2 F L 98.6 F Pulse Rate 69 63 Respiratory Rate 24 H 20 Blood Pressure 134/64 139/56 L Pulse Oximetry 100 100 Oxygen Delivery Room Air 08/03/24 08:00 Temperature 98.8 F Pulse Rate 67 Respiratory Rate 22 H Blood Pressure 145/68 H Pulse Oximetry 100 Oxygen Delivery Intake/Output Intake/Output: Intake & Output 07/31/24 08/01/24 08/02/24 08/03/24 23:59 23:59 23:59 23:59 Intake Total 1290 3133.3 100 656 Output Total 700 1050 750 600 Balance 590 2083.3 -650 56 Meds/Results Medications: Active Medications Generic Name Dose Route Start Last Admin Trade Name Freq PRN Reason Stop Dose Admin Acetaminophen 650 mg 07/30/24 10:37 Acetaminophen 650 Mg Suppository RECTAL Q6H PRN Mild Pain (1-3) or Fever Hydrocodone Bitart/Acetaminophen 1 tab 07/30/24 14:29 Hydrocodone/Acetaminophen (*Crx) 5-325 Mg Tablet FEED TUBE Q6H PRN Pain Rated 4-6 Amlodipine Besylate 5 mg 08/02/24 17:25 08/02/24 17:43 Amlodipine Besylate 5 Mg Tablet PO 5 mg DAILY URIAH Administration Atorvastatin Calcium 20 mg 07/30/24 09:00 08/02/24 08:19 Atorvastatin 20 Mg Tablet FEED TUBE 20 mg DAILY URIAH Administration Azithromycin 500 mg 08/02/24 17:55 08/02/24 18:11 Azithromycin 250 Mg Tablet FEED TUBE 08/06/24 22:00 500 mg DAILY URIAH Administration Calcium Acetate 667 mg 08/03/24 13:00 Calcium Acetate 667 Mg Tablet FEED TUBE TID URIAH Collagenase 1 applic 07/31/24 10:45 08/02/24 08:19 Collagenase Oint 30 Gm Tube TOPICAL 1 applic QAM [facility]AH Administration Dextrose 12.5 gm 07/29/24 11:33 Dextrose 50% 25 Gm/50 Ml Syringe IV PUSH PRN PRN Hypoglycemia Protocol Glucagon 1 mg 07/29/24 11:33 Glucagon For Inj 1 Mg Vial IM PRN PRN Hypoglycemia Protocol Glucose 15 gm 07/29/24 11:33 Glucose Oral Gel 15 Gm Of Glucse In 37.5 Gm Tube PO PRN PRN Hypoglycemia Protocol Heparin Sodium (Porcine) 5,000 units 07/29/24 21:00 08/02/24 21:45 Heparin Sodium 5,000 Units/Ml Vial SUB-Q 5,000 units Q12HR [facility]AH Administration Hydralazine HCl 20 mg 07/30/24 10:36 08/02/24 00:39 Hydralazine Hcl 20 Mg/Ml Vial IV PUSH 20 mg Q8H PRN Administration Hypertension Hydralazine HCl 100 mg 08/01/24 14:00 08/03/24 05:43 Hydralazine Hcl 50 Mg Tablet FEED TUBE 100 mg Q8HR URIAH Administration Dextrose 1,000 mls @ 100 mls/hr 07/29/24 11:33 Dextrose 5% 1,000 Ml IVPB PRN PRN Hypoglycemia Protocol Meropenem 500 mg in 100 mls @ 200 mls/hr 08/02/24 18:00 08/02/24 18:11 IVPB Infused Q24H URIAH Infusion Insulin Aspart 2 - 5 units 07/29/24 12:00 08/03/24 05:39 Insulin Aspart (*Bkc) 100 Units/Ml SUB-Q 2 units Q6HR URIAH Administration Protocol Insulin Glargine 6 units 07/30/24 21:00 08/02/24 23:44 Insulin Glargine (*Bkc) 100 Units/Ml SUB-Q 6 units HS URIAH Administration Morphine Sulfate 2 mg 07/30/24 14:28 07/31/24 17:25 Morphine Sulfate (*Crx) 2 Mg/Ml Inj IV PUSH 2 mg Q4H PRN Administration Pain Rated 7-10 Sevelamer Carbonate 1 each 08/02/24 08:00 08/02/24 16:32 0.8gm Powder Packet FEED TUBE 09/01/24 07:59 1 each TIDWM URIAH Administration Ondansetron HCl 4 mg 07/30/24 10:37 Ondansetron Inj 4 Mg/2 Ml Vial IV PUSH Q6H PRN Nausea And Vomiting Radiology Results: ITS Impressions Abdomen X-Ray 07/30/24 07:14 IMPRESSION: 1. Nasogastric tube in stomach. 2. Persistent mild opacities at the right lung base which could represent atelectasis or pneumonia and likely tiny bilateral pleural effusions. Chest X-Ray 07/31/24 05:57 IMPRESSION: 1. Cardiomegaly. Chest/Abdomen/Pelvis CT 08/02/24 17:17 IMPRESSION: 1. Mild emphysema with small bilateral pleural effusions and region of consolidation at the lateral basilar right lower lobe which could represent atelectasis or pneumonia. 2. Cardiomegaly with prominent left ventricular enlargement. 3. Multinodular goiter. Consider thyroid ultrasound for risk stratification. 4. Roth catheter in the bladder with wall thickening and slight haziness to the surrounding fat suggestive of cystitis either acute or chronic. Correlate with urinalysis. 5. Cholelithiasis. 6. Large right hydrocele. 7. Nonspecific mild diffuse edema of the intra-abdominal/pelvic and body wall fat. Labs Labs: Laboratory Results - last 24 hr 08/02/24 08/02/24 08/02/24 07:17 09:40 11:41 WBC RBC Hgb Hct MCV MCH MCHC RDW Plt Count MPV Immature Gran % (Auto) 0.8 H Neut % (Auto) 90.9 H Lymph % (Auto) 4.6 L [place] % (Auto) 3.4 Eos % (Auto) 0.1 Baso % (Auto) 0.2 Lymph # (Auto) 0.82 L [place] # (Auto) 0.6 Eos # (Auto) 0.0 Baso # (Auto) 0.0 Abs Immat Gran (auto) 0.15 H Absolute Neuts (auto) 16.2 H Absolute Nucleated RBC 0.000 Nucleated RBC % 0.0 Sodium Potassium Chloride Carbon Dioxide Anion Gap BUN Creatinine Estim Creat Clear Calc Estimated GFR Glucose POC Capillary Glucose 176 H Calcium Phosphorus Magnesium Total Bilirubin AST ALT Alkaline Phosphatase C-Reactive Protein 4.6 H Total Protein Albumin Procalcitonin 3.1 Urine Color Urine Appearance Urine pH Ur Specific [place] Urine Protein Urine Glucose (UA) Urine Ketones Ur Blood (Man) Urine Nitrate Urine Bilirubin Urine Urobilinogen Ur Leukocyte Esterase Add Ur Microanalysis Urine RBC Urine WBC Ur Squamous Epith Cells Urine Bacteria Urine Casts Urine Mucus 08/02/24 08/02/24 08/02/24 17:38 17:51 23:13 WBC RBC Hgb Hct MCV MCH MCHC RDW Plt Count MPV Immature Gran % (Auto) Neut % (Auto) Lymph % (Auto) [place] % (Auto) Eos % (Auto) Baso % (Auto) Lymph # (Auto) [place] # (Auto) Eos # (Auto) Baso # (Auto) Abs Immat Gran (auto) Absolute Neuts (auto) Absolute Nucleated RBC Nucleated RBC % Sodium Potassium Chloride Carbon Dioxide Anion Gap BUN Creatinine Estim Creat Clear Calc Estimated GFR Glucose POC Capillary Glucose 210 H 193 H Calcium Phosphorus Magnesium Total Bilirubin AST ALT Alkaline Phosphatase C-Reactive Protein Total Protein Albumin Procalcitonin Urine Color Yellow Urine Appearance Turbid H Urine pH 5.0 Ur Specific [place] 1.013 Urine Protein 2+ H Urine Glucose (UA) 1+ H Urine Ketones Negative Ur Blood (Man) Negative Urine Nitrate Positive Urine Bilirubin Negative Urine Urobilinogen 0.2 Ur Leukocyte Esterase 3+ H Add Ur Microanalysis Reviewed Urine RBC 0-2 Urine WBC 51-100 Ur Squamous Epith Cells None seen Urine Bacteria 4+ H Urine Casts 3-5 Urine Mucus Present 08/03/24 08/03/24 05:22 06:08 WBC 14.1 H RBC 2.46 L Hgb 7.3 L Hct 25.1 L MCV 102.0 H MCH 29.7 MCHC 29.1 L RDW 14.1 Plt Count 203 MPV 13.3 H Immature Gran % (Auto) Neut % (Auto) Lymph % (Auto) [place] % (Auto) Eos % (Auto) Baso % (Auto) Lymph # (Auto) [place] # (Auto) Eos # (Auto) Baso # (Auto) Abs Immat Gran (auto) Absolute Neuts (auto) Absolute Nucleated RBC Nucleated RBC % Sodium 152 H Potassium 4.0 Chloride 117 H Carbon Dioxide 22 Anion Gap 13 H BUN 221 H Creatinine 7.80 H Estim Creat Clear Calc 7 Estimated GFR 8 L Glucose 215 H POC Capillary Glucose 216 H Calcium 8.5 Phosphorus 7.1 H Magnesium 2.3 Total Bilirubin 0.3 AST 34 ALT 25 Alkaline Phosphatase 101 C-Reactive Protein Total Protein 6.0 L Albumin 2.6 L Procalcitonin Urine Color Urine Appearance Urine pH Ur Specific [place] Urine Protein Urine Glucose (UA) Urine Ketones Ur Blood (Man) Urine Nitrate Urine Bilirubin Urine Urobilinogen Ur Leukocyte Esterase Add Ur Microanalysis Urine RBC Urine WBC Ur Squamous Epith Cells Urine Bacteria Urine Casts Urine Mucus Quality VTE Prophylaxis VTE prophylaxis: mechanical ordered and pharmacologic ordered
[2024-08-03 12:00] LABS: Glucose Point of Care 171 mg/dl (65-105)
[2024-08-03] MEDS: CALCIUM ACETATE 667 MG TABLET FEED TUBE ×2 (13:22→17:29)
[2024-08-03] MEDS: COLLAGENASE OINT 30 GM TUBE 1 APPLIC TOPICAL (16:54)
[2024-08-03] MEDS: MEROPENEM 500 MG/NS 100 ML 500 MG/100 ML BAG 200 MG IVPB (17:30)
[2024-08-03 17:47] LABS: Glucose Point of Care 204 mg/dl (65-105)
[2024-08-03] MEDS: INSULIN GLARGINE (*BKC) 100 UNITS/ML 6 UNITS SUB-Q (21:46)
[2024-08-03 23:32] LABS: Glucose Point of Care 188 mg/dl (65-105)
--- NOTE | 2024-08-04 03:30 | PC.NURSE ---
CHECKED RESIDUALS AT 21:45 WAS 350 ML AND WAS THICK BROWN COLOR AND CONSISTENCY. CALLED DR. WISE ORDERED TO PAUSED AND RECEIVED A CHEST XRAY.
[2024-08-04 03:37] VITALS: BP 153/65; PULSE 54; RESP 16; TEMP 36.4; O2SAT 100
[2024-08-04 05:30] LABS: Glucose Point of Care 144 mg/dl (65-105)
[2024-08-04 06:30] LABS: Hematocrit 26.5 % (42.0-52.0); Hemoglobin 7.6 g/dL (14.0-18.0); Mean Corpuscular HGB Conc 28.7 g/dl (32-36); Mean Corpuscular Hemoglobin 29.2 pg (26-34); Mean Corpuscular Volume 101.9 fl (80-100); Mean Platelet Volume 12.9 fl (7.4-10.4); Platelet Count Result 203 k/mm3 (150-375); White Blood Count 13.7 K/mm3 (4.5-10.0)
[2024-08-04] MEDS: INSULIN ASPART (*BKC) 100 UNITS/ML SUB-Q (06:33)
[2024-08-04] MEDS: hydrALAZINE HCL 50 MG TABLET 100 MG FEED TUBE ×3 (06:34→20:59)
[2024-08-04 06:47] LABS: Alanine Aminotransferase 27 U/L (6-50); Albumin Level 2.8 g/dL (3.5-5.1); Alkaline Phosphatase 107 U/L (38-126); Anion Gap 11 mmol/L (4-12); Aspartate Amino Transferase 28 U/L (17-59); Bilirubin,Total 0.3 mg/dL (0.2-1.3); Calcium 8.7 mg/dL (8.4-10.2); Carbon Dioxide 24 mmol/L (22-30); Chloride 116 mmol/L (98-107); Estimated CRCL calculation 7 ml/min; Estimated Glomerular Filt Rate 8; Glucose 172 mg/dL (65-110); Magnesium 2.2 mg/dL (1.6-2.3); Potassium 3.8 mmol/L (3.4-5.0); Sodium 151 mmol/L (137-145)
[2024-08-04 07:11] LABS: Blood Urea Nitrogen 211 mg/dL (9-20)
[2024-08-04 08:00] VITALS: BP 141/57; PULSE 69; RESP 16; TEMP 36.1; O2SAT 100
--- NOTE | 2024-08-04 08:19 | P.PNIM_ITS ---
Progress Note: A&P Assessment and Plan (1) PEG tube malfunction: Code(s): K94.23 - Gastrostomy malfunction Status: Acute Assessment and Plan: * HX of aspiration * recent placement of peg tube * Dislodged per KUB * GI consulted * Monitor electrolytes replenish as needed and adjust flushes as needed for any hypernatremia * Peg tube placement 08/01 * NA slowly improving with increased free water flush * Increased FWF to 200 ml on 08/03 * Reglan added to help with GI motility, and decrease risk of aspiration, tube feed goal 50 mils per hour for adequate nutrition (2) Renal failure (ARF), acute on chronic: Code(s): N17.9 - Acute kidney failure, unspecified; N18.9 - Chronic kidney disease, unspecified Status: Acute Assessment and Plan: * ESRD * Patient is not a candidate for hemodialysis--from Dr Weiner's note on 07/19/24 considering his mental status and considerable morbidity related to starting dialysis especially with the high risk of placing a catheter in general, it would seem that the risks HD catheter placement as well as dialysis far exceeds the benefit, . * Patient's facility is working to on obtaining guardianship and then patient will be made DNR. * Renvela was stopped for some reason, maybe due to displaced g-tube. Will resume phosphorus binder now. * Avoid nephrotoxic drugs. * Monitor antihypertensive drug therapy. * Avoid NSAIDs. * Routine CMP monitoring GFR. * Monitor electrolytes especially potassium. * Antibiotic doses depending on creatinine clearance. * Pharmacy does medications. * Routine follow-up with Nephrology as an outpatient. (3) Insulin dependent diabetes mellitus: Status: Chronic Assessment and Plan: * Accu-Cheks A6HR on tube feeds * sliding scale insulin * resume patient's home long-acting * Watch for hypoglycemia/hypoglycemic protocol ordered (4) Pneumonia: Code(s): J18.9 - Pneumonia, unspecified organism Status: Acute Assessment and Plan: * KUB showing lower RT lung opacities * mild leukocytosis on admission * will order chest x-ray for review * afebrile and on room air * was on Rocephin. WBC increased to 18.8 with elevation in procalcitonin of 3.8 and elevated CRP * Blood cultures drawn * Broadened to Meropenem to cover for ESBL as urine is cloudy, hull-yellow with sediment present. Added atypical PNA coverage with azithromycin for 5 days. * CT chest shows area of consolidation to lateral, basilar right lower lobe with small bilateral pleural effusions * He sounds more congested today. Will start CPT vest therapy, add Mucinex. (5) Hypertension: Code(s): I10 - Essential (primary) hypertension Status: Chronic Assessment and Plan: * patient hypertensive admission * had missed his blood pressure medication * resume hydralazine t.i.d. through tube * added p.r.n. hydralazine for systolic over 180 * Patient still hypertensive systolic's 170's * increased his hydralazine to 100 TID * Added low dose amlodipine 5 mg daily. Patient was on this last admission but medication was stopped due to low blood pressure. * Blood pressure marginally better (6) Dementia: Code(s): F03.90 - Unspecified dementia, unspecified severity, without behavioral disturbance, psychotic disturbance, mood disturbance, and anxiety Status: Acute Assessment and Plan: * Alert and oriented x1 * at baseline (7) Hypernatremia: Code(s): E87.0 - Hyperosmolality and hypernatremia Status: Acute Assessment and Plan: * NA 152 * Increased free water flush to 200 ml every four hours * given his renal function, opted not to give D5W at this time. Hopefully FWF adjustments will show improvement. * daily bmp (8) Acute UTI: Code(s): N39.0 - Urinary tract infection, site not specified Status: Acute Assessment and Plan: Urine in roth tubing is cloudy yellow-hull with sediment and mucous present. Concerns for possible recurrent UTI. * History of ESBL and WBC is increasing despite Rocephin. * UA ordered and looks infected, blood cultures pending * Switched to meropenem * Likely will need midline placed for IV antibiotics at discharge should culture grow ESBL again. Awaiting blood cultures to result. * CT abdomen and pelvis shows bladder wall thickening and haziness to surrounding fat suggestive of cystitis acute or chronic. Plan Code status: Full code per patient DVT prophylaxis: Maria Antonianox Stress ulcer prophylaxis: Protonix 40 daily PT/OT notes: bedbound Disposition: Patient continues admission to the medical unit for replacement of dislodged PEG tube re-scheduled for tomorrow 08/01. will need abdominal binder at discharge plan to return back to [facility] facility once medically stable. Time Spent With Patient Time with patient: Greater than 35 minutes Subjective Date/time seen: 08/04/24 08:19 Interval history: 73-year-old male with past medical history significant for dementia, patient is oriented times once at times, end-stage renal disease, Comes to the emergency room after his PEG tube was dislodged s/p replaced. leukocytosis improving on a.m. labs, tube feeds were held today for about 2 hours for residual 60 mL, Reglan added to help promote GI motility and reduce risk of aspiration, on assessment lungs are very coarse, patient on guaifenesin Review of Systems Review of Systems: ROS unobtainable: Yes unobtainable due to medical condition and unobtainable due to mental status ( Advanced dementia) Exam Narrative: General: appears comfortable, in no acute distress, resting with eyes closed, awakes to tactile stimuli Respiratory: breathing is unlabored with even chest rise/fall, lungs are coarse without wheezing or rhonchi. Cardiovascular: Rate and rhythm regular, normal s1s2, no murmur Abdomen: Soft, round, non-tender, active bowel sounds, g-tube with abdominal binder in place Extremities: No cyanosis, dependent pitting edema to bilateral upper extremities +1-2, no clubbing. Pulses 2/2 Neuro: Alert and non-verbal, moves all extremities with generalized weakness. Skin: Warm, dry, intact. Left gluteus with pressure related ulcer with eschar wound bed Const: General: comfortable, no acute distress, well developed, alert, awake, ill appearing chronically and average body habitus Nutritional Appearance: average body habitus HENMT: Head: normal to inspection, normocephalic and atraumatic Ears: hearing grossly normal bilaterally Face/Nose/Sinus: normal facial exam Face and sinus: normal facial exam Eyes: General: appearance normal, both eyes and all related structures Pupils: Equal, round and reactive pupils present EOM: EOMs intact bilaterally Neck: Neck: full ROM, no lymphadenopathy and no JVD Thyroid: thyroid normal Lymphatic: no lymphadenopathy noted Resp: Effort & Inspection: normal respiratory effort and able to speak in complete sentences Auscultation: clear to auscultation bilaterally Cardio: Jugular venous distension: no JVD Rate: regular rate Rhythm: regular rhythm Heart sounds: S1 normal heart sound present and S2 normal heart sound present : General: Yes deferred Skin: Rashes: no rashes Other: patient has some abrasions Neuro: General: no focal motor deficits, CN's II-XI intact bilaterally and Unable to assess gait Cranial nerves: Yes CN's II-XII intact bilaterally and Yes Equal, round and reactive pupils present Cognition (Neuro): abnormal cognition ( dementia) Speech: normal speech Gait exam (Neuro): Unable to assess gait Motor exam (neuro): 5/5 motor strength present throughout Extrem: General: normal to inspection, full ROM, no joint enlargement and no pedal edema Objective Data Vital Signs Vital Signs: Vital Signs - 24 hr 08/03/24 12:00 08/03/24 16:00 08/03/24 20:00 Temperature 98.2 F 96.7 F L 97.4 F L Pulse Rate 62 61 60 Respiratory Rate 22 H 20 17 Blood Pressure 169/56 H 141/59 H 154/62 H Pulse Oximetry 100 96 100 Oxygen Delivery 08/03/24 23:33 08/03/24 20:00 08/04/24 03:37 Temperature 97.2 F L 97.6 F Pulse Rate 54 L 54 L Respiratory Rate 18 16 Blood Pressure 142/59 H 153/65 H Pulse Oximetry 99 100 Oxygen Delivery Room Air Intake/Output Intake/Output: Intake & Output 08/01/24 08/02/24 08/03/24 08/04/24 23:59 23:59 23:59 23:59 Intake Total 3133.3 100 1809 Output Total 1050 750 850 450 Balance 2083.3 650 959 -450 Meds/Results Medications: Active Medications Generic Name Dose Route Start Last Admin Trade Name Freq PRN Reason Stop Dose Admin Acetaminophen 650 mg 07/30/24 10:37 Acetaminophen 650 Mg Suppository RECTAL Q6H PRN Mild Pain (1-3) or Fever Hydrocodone Bitart/Acetaminophen 1 tab 07/30/24 14:29 Hydrocodone/Acetaminophen (*Crx) 5-325 Mg Tablet FEED TUBE Q6H PRN Pain Rated 4-6 Amlodipine Besylate 5 mg 08/04/24 09:00 Amlodipine Besylate 5 Mg Tablet FEED TUBE DAILY URIAH Atorvastatin Calcium 20 mg 07/30/24 09:00 08/03/24 09:42 Atorvastatin 20 Mg Tablet FEED TUBE 20 mg DAILY URIAH Administration Azithromycin 500 mg 08/02/24 17:55 08/03/24 09:42 Azithromycin 250 Mg Tablet FEED TUBE 08/06/24 22:00 500 mg DAILY URIHA Administration Calcium Acetate 667 mg 08/03/24 13:00 08/03/24 17:29 Calcium Acetate 667 Mg Tablet FEED TUBE 667 mg TID URIAH Administration Collagenase 1 applic 07/31/24 10:45 08/03/24 16:54 Collagenase Oint 30 Gm Tube TOPICAL 1 applic QAM URIAH Administration Dextrose 12.5 gm 07/29/24 11:33 Dextrose 50% 25 Gm/50 Ml Syringe IV PUSH PRN PRN Hypoglycemia Protocol Glucagon 1 mg 07/29/24 11:33 Glucagon For Inj 1 Mg Vial IM PRN PRN Hypoglycemia Protocol Glucose 15 gm 07/29/24 11:33 Glucose Oral Gel 15 Gm Of Glucse In 37.5 Gm Tube PO PRN PRN Hypoglycemia Protocol Guaifenesin 600 mg 08/03/24 21:00 08/03/24 23:51 Guaifenesin 12 Hr 600 Mg Tabcr PO Not Given Q12HR [facility] Heparin Sodium (Porcine) 5,000 units 07/29/24 21:00 08/03/24 21:45 Heparin Sodium 5,000 Units/Ml Vial SUB-Q 5,000 units Q12HR URIAH Administration Hydralazine HCl 20 mg 07/30/24 10:36 08/02/24 00:39 Hydralazine Hcl 20 Mg/Ml Vial IV PUSH 20 mg Q8H PRN Administration Hypertension Hydralazine HCl 100 mg 08/01/24 14:00 08/04/24 06:34 Hydralazine Hcl 50 Mg Tablet FEED TUBE 100 mg Q8HR URIAH Administration Dextrose 1,000 mls @ 100 mls/hr 07/29/24 11:33 Dextrose 5% 1,000 Ml IVPB PRN PRN Hypoglycemia Protocol Meropenem 500 mg in 100 mls @ 200 mls/hr 08/02/24 18:00 08/03/24 18:00 IVPB Infused Q24H URIAH Infusion Insulin Aspart 2 - 5 units 07/29/24 12:00 08/04/24 06:33 Insulin Aspart (*Bkc) 100 Units/Ml SUB-Q 2 units Q6HR URIAH Administration Protocol Insulin Glargine 6 units 07/30/24 21:00 08/03/24 21:46 Insulin Glargine (*Bkc) 100 Units/Ml SUB-Q 6 units HS URIAH Administration Morphine Sulfate 2 mg 07/30/24 14:28 07/31/24 17:25 Morphine Sulfate (*Crx) 2 Mg/Ml Inj IV PUSH 2 mg Q4H PRN Administration Pain Rated 7-10 Sevelamer Carbonate 1 each 08/02/24 08:00 08/03/24 17:30 0.8gm Powder Packet FEED TUBE 09/01/24 07:59 1 each TIDWM URIAH Administration Ondansetron HCl 4 mg 07/30/24 10:37 Ondansetron Inj 4 Mg/2 Ml Vial IV PUSH Q6H PRN Nausea And Vomiting Radiology Results: ITS Impressions Abdomen X-Ray 07/30/24 07:14 IMPRESSION: 1. Nasogastric tube in stomach. 2. Persistent mild opacities at the right lung base which could represent atelectasis or pneumonia and likely tiny bilateral pleural effusions. Chest/Abdomen/Pelvis CT 08/02/24 17:17 IMPRESSION: 1. Mild emphysema with small bilateral pleural effusions and region of consolidation at the lateral basilar right lower lobe which could represent atelectasis or pneumonia. 2. Cardiomegaly with prominent left ventricular enlargement. 3. Multinodular goiter. Consider thyroid ultrasound for risk stratification. 4. Roth catheter in the bladder with wall thickening and slight haziness to the surrounding fat suggestive of cystitis either acute or chronic. Correlate with urinalysis. 5. Cholelithiasis. 6. Large right hydrocele. 7. Nonspecific mild diffuse edema of the intra-abdominal/pelvic and body wall fat. Chest X-Ray 08/04/24 06:26 IMPRESSION: Bibasilar lower lobe atelectasis and/or consolidation and small pleural effusions Cardiomegaly, aortic atherosclerosis Labs Labs: Laboratory Results - last 24 hr 08/03/24 08/03/24 08/03/24 11:58 17:42 23:24 WBC RBC Hgb Hct MCV MCH MCHC RDW Plt Count MPV Sodium Potassium Chloride Carbon Dioxide Anion Gap BUN Creatinine Estim Creat Clear Calc Estimated GFR Glucose POC Capillary Glucose 171 H 204 H 188 H Calcium Magnesium Total Bilirubin AST ALT Alkaline Phosphatase Total Protein Albumin 08/04/24 08/04/24 05:21 06:02 WBC 13.7 H RBC 2.60 L Hgb 7.6 L Hct 26.5 L MCV 101.9 H MCH 29.2 MCHC 28.7 L RDW 14.0 Plt Count 203 MPV 12.9 H Sodium 151 H Potassium 3.8 Chloride 116 H Carbon Dioxide 24 Anion Gap 11 BUN 211 H Creatinine 8.10 H Estim Creat Clear Calc 7 Estimated GFR 8 L Glucose 172 H POC Capillary Glucose 144 H Calcium 8.7 Magnesium 2.2 Total Bilirubin 0.3 AST 28 ALT 27 Alkaline Phosphatase 107 Total Protein 7.0 Albumin 2.8 L Quality VTE Prophylaxis VTE prophylaxis: mechanical ordered and pharmacologic ordered Hospitalist MIPS Advance Care Plan I have confirmed that the patient's Advanced Care Plan is present, code status is documented, or surrogate decision maker is listed in patient medical record.: Yes
[2024-08-04] MEDS: amLODIPine BESYLATE 5 MG TABLET FEED TUBE (09:33)
[2024-08-04] MEDS: ATORVASTATIN 20 MG TABLET FEED TUBE (09:33)
[2024-08-04] MEDS: CALCIUM ACETATE 667 MG TABLET FEED TUBE ×3 (09:34→17:39)
[2024-08-04] MEDS: AZITHROMYCIN 250 MG TABLET 500 MG FEED TUBE (09:34)
[2024-08-04] MEDS: HEPARIN SODIUM 5,000 UNITS/ML VIAL 5000 UNITS SUB-Q ×2 (09:42→20:59)
[2024-08-04] MEDS: COLLAGENASE OINT 30 GM TUBE 1 APPLIC TOPICAL (09:42)
[2024-08-04] MEDS: SEVELAMER CARBONATE 0.8 GM 1 EACH FEED TUBE ×3 (09:44→17:39)
[2024-08-04 11:17] LABS: Glucose Point of Care 148 mg/dl (65-105)
[2024-08-04 12:00] VITALS: BP 151/59; PULSE 51; RESP 18; TEMP 36.5; O2SAT 98
--- NOTE | 2024-08-04 12:19 | PCNFU ---
Nutrition Follow-Up Complete: Inadequate energy intake related to NPO with no tube feeding running at this time as evidenced by diet orders, currently dislodged PEG goal: Meet estimated needs Patient is progressing towards goal. We will continue current goal. Pt current nutrition is Nepro at 30 ml/hr. Nutrition recommendation: goal rate at 50 ml/hr. Last recorded weight is 71.4 kg, stable Bowel Motility: smear Labs Reviewed: Glu 120, BUN 222, Cr 8.4, Na 152 Meds Noted: Rocephin, Protonix, Lantus Skin: unstageable Thigh, Deep Tissue- ankel and toe Additional Notes: Patient currently on tube feedings of Nepro at 30 ml/hr. Nursing called with residual amount. Discussed with nursing today, recommend to not stop tube feedings unless tube feedings are > 500. Nursing is aware and plans to advance tube feedings as tolerated. Tube feedings at goal rate of 50 ml/hr providing 1980 kcal/89 gm protein/800 ml water. Flush increased to 200 ml q 4 hours 2/2 to elevated sodium. Agree with diet orders. Monitor PEG placement, tube feed starts, tolerance, rate, wt, labs. Follow up every Wednesday and Wednesday.
[2024-08-04 16:00] VITALS: BP 156/62; PULSE 87; RESP 20; TEMP 36.2; O2SAT 97
[2024-08-04] MEDS: MEROPENEM 500 MG/NS 100 ML 500 MG/100 ML BAG 150 MG IVPB (17:39)
[2024-08-04] MEDS: METOCLOPRAMIDE HCL INJ 10 MG/2 ML VIAL 5 MG IV PUSH (18:26)
[2024-08-04 18:29] LABS: Glucose Point of Care 162 mg/dl (65-105)
[2024-08-04 19:58] VITALS: BP 157/57; PULSE 62; RESP 22; TEMP 36.4; O2SAT 100
[2024-08-04] MEDS: INSULIN GLARGINE (*BKC) 100 UNITS/ML 6 UNITS SUB-Q (21:00)
[2024-08-04 23:39] LABS: Glucose Point of Care 149 mg/dl (65-105)
[2024-08-04 23:45] VITALS: BP 133/57; PULSE 60; RESP 24; TEMP 36.8; O2SAT 100
--- NOTE | 2024-08-05 | ECHO_ITS ---
Patient Info Name: Cristofer Bryant Age: 73 years : 1950 Gender: Male Ht: 68 in Wt: 157 lbs BSA: 1.85 m2 HR: 62 bpm BP: 167 / 65 mmHg Heart Rhythm: Atrial Fibrillation Technical Quality: Fair Exam Date: 08/05/2024 11:23 AM Exam Location: Echo Lab Patient Status: Inpatient Admit Date: 07/29/2024 Staff Ordering Physician: Karli Sheridan APRN Control Panel Assembler: Yaw Dorsey RDCS Attending Provider: Karli Sheridan APRN Exam Type: CA echo doppler color flow Study Info Indications - SOB/POSSIBLE FLUID OVERLOAD Complete two-dimensional, color flow and Doppler transthoracic echocardiogram is performed. Summary 1. Complete two-dimensional, color flow and Doppler transthoracic echocardiogram is performed. 2. Left ventricular chamber dimension is normal. 3. Left ventricular systolic function is normal, estimated at 55-60%. 4. There is mildly increased left ventricular wall thickness. 5. Right ventricular chamber dimension is normal. 6. Right ventricular systolic function is normal. 7. The mitral valve has normal leaflets. 8. The tricuspid valve leaflets are normal. 9. There is no aortic valve stenosis. 10. There is no aortic valve regurgitation. Left Ventricle Left ventricular chamber dimension is normal. Left ventricular systolic function is normal, estimated at 55-60%. There is mildly increased left ventricular wall thickness. Left ventricular septal wall motion is normal. Right Ventricle Right ventricular chamber dimension is normal. Right ventricular systolic function is normal. Left Atria Left atrial chamber dimension is normal. Right Atria Right atrial chamber dimension is normal. Aortic Valve The aortic valve is trileaflet. There is no aortic valve sclerosis. There is no aortic valve stenosis. There is no aortic valve regurgitation. Pulmonic Valve The pulmonic valve is not well visualized. Mitral Valve The mitral valve has normal leaflets. There is no mitral valve stenosis. There is no mitral valve regurgitation. Tricuspid Valve The tricuspid valve leaflets are normal. There is no significant tricuspid valve stenosis. There is no tricuspid valve regurgitation. Pericardium/Pleural The pericardium appears normal. There is no pericardial effusion. Inferior Vena Cava Normal inferior vena cava with >50% collapse upon inspiration consistent with normal right atrial pressure, 10 mmHg. Aorta The aortic root size at the sinus of Valsalva is normal. The prox ascending aorta size is normal. Left Ventricular Outflow Tract Name Value Normal LVOT 2D LVOT Diameter 2.1 cm LVOT Doppler LVOT Peak Gradient 8 mmHg LVOT Mean Gradient 4 mmHg LVOT VTI 25 cm LVOT VTI/AV VTI Ratio 0.8 LVOT Stroke Volume 88 ml LVOT CO 12.5 l/min LVOT CI 6.7 l/min/m2 Pulmonic Valve Name Value Normal RVOT Doppler RVOT Peak Gradient 9 mmHg PV Doppler PV Peak Gradient 11 mmHg Mitral Valve Name Value Normal MV Doppler MV Decel [place] 638 cm/s2 MV PHT 38 ms MV Area (PHT) 5.8 cm2 4.0-5.0 MV Diastolic Function MV E Peak Velocity 84 cm/s MV A Peak Velocity 107 cm/s MV E/A 0.8 MV Decel Time 132 ms MV Annular TDI MV E/e' (Septal) 16.3 <=8.0 MV E/e' (Lateral) 11.1 <=8.0 MV E/e' (Average) 13.7 Tricuspid Valve Name Value Normal TV Regurgitation Doppler TR Peak Velocity 318 cm/s TR Peak Gradient 40 mmHg Estimated PAP/RSVP RA Pressure 10 mmHg <=5 PA Systolic Pressure 50 mmHg <36 RV Systolic Pressure 50 mmHg <36 Aorta Name Value Normal Ascending Aorta Ao Root Diameter (MM) 3.7 cm Ao Root Diam Index (MM) 2.0 cm/m2 Aortic Valve Name Value Normal AV Doppler AV Peak Velocity 195 cm/s AV Peak Gradient 15 mmHg AV Mean Gradient 7 mmHg AV VTI 33 cm AV Area (Cont Eq VTI) 2.7 cm2 >=3.0 AV Area (Cont Eq Lyndon) 2.6 cm2 AV Regurgitation 2D LVOT Area 3.5 cm2 Ventricles Name Value Normal LV Dimensions 2D/MM IVS Diastolic Thickness (2D) 1.5 cm 0.6-1.0 LVID Diastole (2D) 4.7 cm 4.2-5.8 LVIW Diastolic Thickness (2D) 2.2 cm 0.6-1.0 LVID Systole (2D) 3.3 cm 2.5-4.0 LVOT Diameter 2.1 cm LV Mass (2D Cubed) 392.69 g 88.00-224.00 LV Mass Index (2D Cubed) 212 g/m2 49-115 Relative Wall Thickness (2D) 0.92 LV Fractional Shortening/Ejection Fraction 2D/MM LV Fractional Shortening (2D) 31 % 25-43 LV EF (2D Teichpascual) 58 % 52-72 LV Diastolic Volume (4C MOD) 136 ml LV EF (4C MOD) 46 % LV Diastolic Volume (2C MOD) 80 ml LV EF (2C MOD) 34 % LV Diastolic Volume (BP MOD) 109 ml 62-150 LV Diastolic Volume Index (BP MOD) 59 ml/m2 34-74 LV Systolic Volume (BP MOD) 65 ml 21-61 LV Systolic Volume Index (BP MOD) 35 ml/m2 11-31 LV EF (BP MOD) 40 % 52-72 LV Diastolic Length (4C) 8.2 cm LV Systolic Length (4C) 7.5 cm LV Stroke Volume (4C MOD) 62 ml Atria Name Value Normal LA Dimensions LA Dimension (MM) 3.9 cm 3.0-4.1 LA Volume (4C A-L) 31 ml LA Volume (BP A-L) 65 ml RA Dimensions RA Area (4C) 16.1 cm2 <=18.0 Report Signatures
[2024-08-05] MEDS: METOCLOPRAMIDE HCL INJ 10 MG/2 ML VIAL 5 MG IV PUSH ×4 (00:03→17:27)
[2024-08-05 03:52] VITALS: BP 168/56; PULSE 62; RESP 20; TEMP 36.4; O2SAT 100
[2024-08-05 05:57] LABS: Glucose Point of Care 198 mg/dl (65-105)
[2024-08-05] MEDS: hydrALAZINE HCL 50 MG TABLET 100 MG FEED TUBE ×3 (06:20→21:20)
[2024-08-05 07:45] LABS: Hematocrit 24.7 % (42.0-52.0); Hemoglobin 7.2 g/dL (14.0-18.0); Mean Corpuscular HGB Conc 29.1 g/dl (32-36); Mean Corpuscular Hemoglobin 29.1 pg (26-34); Mean Platelet Volume 12.1 fl (7.4-10.4); Platelet Count Result 207 k/mm3 (150-375); Red Blood Count 2.47 M/mm3 (4.6-6.20); Red Cell Distribution Width 13.8 % (11.5-14.5); White Blood Count 10.5 K/mm3 (4.5-10.0)
--- NOTE | 2024-08-05 07:58 | P.PNIM_ITS ---
Progress Note: A&P Assessment and Plan (1) PEG tube malfunction: Code(s): K94.23 - Gastrostomy malfunction Status: Acute Assessment and Plan: * HX of aspiration * recent placement of peg tube * Dislodged per KUB * GI consulted * Monitor electrolytes replenish as needed and adjust flushes as needed for any hypernatremia * Peg tube placement 08/01 * NA slowly improving with increased free water flush * Increased FWF to 200 ml on 08/03 * Reglan added to help with GI motility, and decrease risk of aspiration, tube feed goal 50 mils per hour for adequate nutrition (2) Renal failure (ARF), acute on chronic: Code(s): N17.9 - Acute kidney failure, unspecified; N18.9 - Chronic kidney disease, unspecified Status: Acute Assessment and Plan: * Acute on Chronic ESRD * Patient is not a candidate for hemodialysis--from Dr Weiner's note on 07/19/24 considering his mental status and considerable morbidity related to starting dialysis especially with the high risk of placing a catheter in general, it would seem that the risks HD catheter placement as well as dialysis far exceeds the benefit, . * Patient's facility is working to on obtaining guardianship and then patient will be made DNR. * Renvela was stopped for some reason, maybe due to displaced g-tube. Continue phosphorus binder now. * Monitor antihypertensive drug therapy. * Avoid NSAIDs/nephrotoxins, follow creatinine/BUN, electrolytes. Renally dose meds (3) Insulin dependent diabetes mellitus: Status: Chronic Assessment and Plan: * Accu-Cheks A6HR on tube feeds, SSI * Continue Lantus 6hs * Watch for hypoglycemia/hypoglycemic protocol ordered * Blood sugars relatively controlled on current regimen (4) Pneumonia: Code(s): J18.9 - Pneumonia, unspecified organism Status: Acute Assessment and Plan: Chest x-ray 08/04 showed bibasilar lower lobe small pleural effusions. WBC has been trending down since admission. Afebrile and on RA --Repeat chest x-ray today. --Consider repeat CT chest if not improving. Would avoid IV contrast under almost all circumstances since very likely to worsen renal failure and no options for dialysis --On Ceftriaxone --WBC increased to 18.8 with elevation in procalcitonin of 3.8 and elevated CRP --Blood cultures 08/02 NGTD * Broadened to Meropenem to cover for ESBL as urine is cloudy, hull-yellow with sediment present. Added atypical PNA coverage with azithromycin for 5 days. 08/02-08/06 * CT chest shows area of consolidation to lateral, basilar right lower lobe with small bilateral pleural effusions * He sounds more congested today. Will start CPT vest therapy, add Mucinex. (5) Hypertension: Code(s): I10 - Essential (primary) hypertension Status: Chronic Assessment and Plan: * patient hypertensive admission * had missed his blood pressure medication * resume hydralazine t.i.d. through tube * added p.r.n. hydralazine for systolic over 180 * Patient still hypertensive systolic's 170's * increased his hydralazine to 100 TID * Added low dose amlodipine 5 mg daily. Patient was on this last admission but medication was stopped due to low blood pressure. * Blood pressure marginally better (6) Dementia: Code(s): F03.90 - Unspecified dementia, unspecified severity, without behavioral disturbance, psychotic disturbance, mood disturbance, and anxiety Status: Acute Assessment and Plan: * Alert and oriented x1 * at baseline (7) Hypernatremia: Code(s): E87.0 - Hyperosmolality and hypernatremia Status: Acute Assessment and Plan: * NA 140 07/21/24 up to 152 on admission 07/28 and has been slowly trending down with fluids 152<155>150 but now holding fluids for possible fluid overload * Increased free water flush to 200 ml every four hours * Hold D5W (had been stopped before day shift) Continue FWF . * daily bmp * Consult renal (8) Acute UTI: Code(s): N39.0 - Urinary tract infection, site not specified Status: Acute Assessment and Plan: Urine in roth tubing is cloudy yellow-hull with sediment and mucous present. Concerns for possible recurrent UTI. * History of ESBL and increasing WBC despite Rocephin. * UA 08/02 4+ bacteria & 50-100 WBC. Culture growing Ecol. Follow sensitivities * blood cultures 08/02 NGTD * Switched to meropenem 08/02- * Likely will need midline placed for IV antibiotics at discharge should culture grow ESBL again. Awaiting blood cultures to result. * CT abdomen and pelvis shows bladder wall thickening and haziness to surrounding fat suggestive of cystitis acute or chronic. Has a Roth catheter in place. Change today if not done (9) Respiratory failure: Code(s): J96.90 - Respiratory failure, unspecified, unspecified whether with hypoxia or hypercapnia Status: Acute Assessment and Plan: Still on RA but coarse lungs and mild tachypnea --chest x-ray showed bilateral lower extremity edema --Repeat Chest x-ray --Check NT-proBNP (10) Edema of upper extremity: Code(s): R60.0 - Localized edema Status: Acute Assessment and Plan: Bilateral upper extremity edema --Upper extremity venous dopplers Plan Code status: Full code per patient DVT prophylaxis: Lovenox Stress ulcer prophylaxis: Protonix 40 daily PT/OT notes: bedbound Disposition: Patient admitted for a dislodged PEG tube, was placed 08/01. Will need abdominal binder at discharge plan to return back to [facility] facility once medically stable. Pending improvement in hypernatremia, improvement in shortness of breath & mild tachypnea Time Spent With Patient Time: 49 minutes Subjective Date/time seen: 08/05/24 07:58 Interval history: Appears slightly short of breath but alert. Follows with eyes and seems to understand some things. Coarse lungs with signficant bilateral upper extremity edema, L>R. X-ray yesterday showed bibasilar lower lob and small pleural effusions. Holding IV fluids. Sodium has been trending down but still increased. 73-year-old male with past medical history significant for dementia, patient is oriented times once at times, end-stage renal disease not on dialysis, Comes to the emergency room after his PEG tube was dislodged s/p replaced. Review of Systems Review of Systems: ROS unobtainable: Yes unobtainable due to medical condition and unobtainable due to mental status ( Advanced dementia) Exam Narrative: General: overall appears comfortable but mildly tachypneic/shallow breathing, in no acute distress, nonverbal but awake and responsive Respiratory: mild tachypnea, lungs are coarse without wheezing or rhonchi. Cardiovascular: Rate and rhythm regular, normal s1s2, no murmur Abdomen: Soft, round, non-tender, active bowel sounds, g-tube with abdominal binder in place Extremities: No cyanosis, dependent pitting edema to bilateral upper extremities, L>R, no clubbing. Pulses 2/2 Neuro: Alert and non-verbal, moves all extremities with generalized weakness. Skin: Warm, dry, intact. Left gluteus with pressure related ulcer with eschar wound bed. Objective Data Vital Signs Vital Signs: Vital Signs - 24 hr 08/04/24 08:00 08/04/24 09:35 08/04/24 12:00 Temperature 97.0 F L 97.7 F Pulse Rate 69 51 L Respiratory Rate 16 18 Blood Pressure 141/57 H 151/59 H Pulse Oximetry 100 98 Oxygen Delivery Room Air 08/04/24 16:00 08/04/24 19:58 08/04/24 23:45 Temperature 97.2 F L 97.6 F 98.3 F Pulse Rate 87 62 60 Respiratory Rate 20 22 H 24 H Blood Pressure 156/62 H 157/57 H 133/57 L Pulse Oximetry 97 100 100 Oxygen Delivery 08/04/24 20:00 08/05/24 03:52 Temperature 97.5 F L Pulse Rate 62 Respiratory Rate 20 Blood Pressure 168/56 H Pulse Oximetry 100 Oxygen Delivery Room Air Intake/Output Intake/Output: Intake & Output 08/02/24 08/03/24 08/04/24 08/05/24 23:59 23:59 23:59 23:59 Intake Total 100 1809 Output Total 425 340 6747 300 Balance -650 959 -1050 -300 Meds/Results Medications: Active Medications Generic Name Dose Route Start Last Admin Trade Name Freq PRN Reason Stop Dose Admin Acetaminophen 650 mg 07/30/24 10:37 Acetaminophen 650 Mg Suppository RECTAL Q6H PRN Mild Pain (1-3) or Fever Hydrocodone Bitart/Acetaminophen 1 tab 07/30/24 14:29 Hydrocodone/Acetaminophen (*Crx) 5-325 Mg Tablet FEED TUBE Q6H PRN Pain Rated 4-6 Amlodipine Besylate 5 mg 08/04/24 09:00 08/04/24 09:33 Amlodipine Besylate 5 Mg Tablet FEED TUBE 5 mg DAILY URIAH Administration Atorvastatin Calcium 20 mg 07/30/24 09:00 08/04/24 09:33 Atorvastatin 20 Mg Tablet FEED TUBE 20 mg DAILY URIAH Administration Azithromycin 500 mg 08/02/24 17:55 08/04/24 09:34 Azithromycin 250 Mg Tablet FEED TUBE 08/06/24 22:00 500 mg DAILY URIAH Administration Calcium Acetate 667 mg 08/03/24 13:00 08/04/24 17:39 Calcium Acetate 667 Mg Tablet FEED TUBE 667 mg TID URIAH Administration Collagenase 1 applic 07/31/24 10:45 08/04/24 09:42 Collagenase Oint 30 Gm Tube TOPICAL 1 applic QAM URIAH Administration Dextrose 12.5 gm 07/29/24 11:33 Dextrose 50% 25 Gm/50 Ml Syringe IV PUSH PRN PRN Hypoglycemia Protocol Glucagon 1 mg 07/29/24 11:33 Glucagon For Inj 1 Mg Vial IM PRN PRN Hypoglycemia Protocol Glucose 15 gm 07/29/24 11:33 Glucose Oral Gel 15 Gm Of Glucse In 37.5 Gm Tube PO PRN PRN Hypoglycemia Protocol Guaifenesin 600 mg 08/03/24 21:00 08/04/24 21:00 Guaifenesin 12 Hr 600 Mg Tabcr PO Not Given Q12HR URIAH Heparin Sodium (Porcine) 5,000 units 07/29/24 21:00 08/04/24 20:59 Heparin Sodium 5,000 Units/Ml Vial SUB-Q 5,000 units Q12HR URIAH Administration Hydralazine HCl 20 mg 07/30/24 10:36 08/02/24 00:39 Hydralazine Hcl 20 Mg/Ml Vial IV PUSH 20 mg Q8H PRN Administration Hypertension Hydralazine HCl 100 mg 08/01/24 14:00 08/05/24 06:20 Hydralazine Hcl 50 Mg Tablet FEED TUBE 100 mg Q8HR URIAH Administration Dextrose 1,000 mls @ 100 mls/hr 07/29/24 11:33 Dextrose 5% 1,000 Ml IVPB PRN PRN Hypoglycemia Protocol Meropenem 500 mg in 100 mls @ 200 mls/hr 08/02/24 18:00 08/04/24 17:39 IVPB 150 mls/hr Q24H URIAH Administration Insulin Aspart 2 - 5 units 07/29/24 12:00 08/05/24 06:16 Insulin Aspart (*Bkc) 100 Units/Ml SUB-Q Not Given Q6HR URIAH Protocol Insulin Glargine 6 units 07/30/24 21:00 08/04/24 21:00 Insulin Glargine (*Bkc) 100 Units/Ml SUB-Q 6 units HS URIAH Administration Metoclopramide HCl 5 mg 08/04/24 18:00 08/05/24 06:20 Metoclopramide Hcl Inj 10 Mg/2 Ml Vial IV PUSH 08/06/24 08:00 5 mg Q6HR URIAH Administration Morphine Sulfate 2 mg 07/30/24 14:28 07/31/24 17:25 Morphine Sulfate (*Crx) 2 Mg/Ml Inj IV PUSH 2 mg Q4H PRN Administration Pain Rated 7-10 Sevelamer Carbonate 1 each 08/02/24 08:00 08/04/24 17:39 0.8gm Powder Packet FEED TUBE 09/01/24 07:59 1 each TIDWM URIAH Administration Ondansetron HCl 4 mg 07/30/24 10:37 Ondansetron Inj 4 Mg/2 Ml Vial IV PUSH Q6H PRN Nausea And Vomiting Radiology Results: ITS Impressions Abdomen X-Ray 07/30/24 07:14 IMPRESSION: 1. Nasogastric tube in stomach. 2. Persistent mild opacities at the right lung base which could represent atelectasis or pneumonia and likely tiny bilateral pleural effusions. Chest/Abdomen/Pelvis CT 08/02/24 17:17 IMPRESSION: 1. Mild emphysema with small bilateral pleural effusions and region of consolidation at the lateral basilar right lower lobe which could represent atelectasis or pneumonia. 2. Cardiomegaly with prominent left ventricular enlargement. 3. Multinodular goiter. Consider thyroid ultrasound for risk stratification. 4. Roth catheter in the bladder with wall thickening and slight haziness to the surrounding fat suggestive of cystitis either acute or chronic. Correlate with urinalysis. 5. Cholelithiasis. 6. Large right hydrocele. 7. Nonspecific mild diffuse edema of the intra-abdominal/pelvic and body wall fat. Chest X-Ray 08/04/24 06:26 IMPRESSION: Bibasilar lower lobe atelectasis and/or consolidation and small pleural effusions Cardiomegaly, aortic atherosclerosis Labs Labs: Laboratory Results - last 24 hr 08/04/24 08/04/24 08/04/24 11:13 18:27 23:25 POC Capillary Glucose 148 H 162 H 149 H 08/05/24 05:52 POC Capillary Glucose 198 H Quality VTE Prophylaxis VTE prophylaxis: mechanical ordered and pharmacologic ordered Hospitalist [facility] Advance Care Plan I have confirmed that the patient's Advanced Care Plan is present, code status is documented, or surrogate decision maker is listed in patient medical record.: Yes Medication Reconciliation I have utilized all available resources to obtain, update and review the patients current medications (includes all prescriptions, OTC, herbals, cannabis, and nutritional supplements).: Yes
[2024-08-05 08:00] VITALS: PULSE 62; RESP 16; O2SAT 100
[2024-08-05 08:10] VITALS: BP 167/65; PULSE 62; RESP 16; TEMP 36.9; O2SAT 100
[2024-08-05 08:17] LABS: Alanine Aminotransferase 25 U/L (6-50); Albumin Level 2.7 g/dL (3.5-5.1); Alkaline Phosphatase 121 U/L (38-126); Anion Gap 12 mmol/L (4-12); Aspartate Amino Transferase 33 U/L (17-59); Bilirubin,Total 0.4 mg/dL (0.2-1.3); Calcium 8.8 mg/dL (8.4-10.2); Carbon Dioxide 24 mmol/L (22-30); Chloride 114 mmol/L (98-107); Estimated CRCL calculation 7 ml/min; Estimated Glomerular Filt Rate 8; Glucose 202 mg/dL (65-110); Magnesium 2.3 mg/dL (1.6-2.3); Potassium 3.9 mmol/L (3.4-5.0); Sodium 150 mmol/L (137-145)
[2024-08-05 08:25] LABS: Blood Urea Nitrogen 211 mg/dL (9-20)
[2024-08-05] MEDS: guaiFENesin 12 HR 600 MG TABCR PO ×2 (08:59→21:20)
[2024-08-05] MEDS: AZITHROMYCIN 250 MG TABLET 500 MG FEED TUBE (08:59)
[2024-08-05] MEDS: ATORVASTATIN 20 MG TABLET FEED TUBE (09:00)
[2024-08-05] MEDS: SEVELAMER CARBONATE 0.8 GM 1 EACH FEED TUBE ×3 (09:00→17:25)
[2024-08-05] MEDS: CALCIUM ACETATE 667 MG TABLET FEED TUBE ×3 (09:00→17:25)
[2024-08-05] MEDS: HEPARIN SODIUM 5,000 UNITS/ML VIAL 5000 UNITS SUB-Q (09:00)
[2024-08-05] MEDS: amLODIPine BESYLATE 5 MG TABLET FEED TUBE (09:00)
[2024-08-05] MEDS: COLLAGENASE OINT 30 GM TUBE 1 APPLIC TOPICAL (09:01)
[2024-08-05 12:40] VITALS: BP 143/57; PULSE 60; RESP 20; TEMP 36.7; O2SAT 96
[2024-08-05 13:00] LABS: Glucose Point of Care 188 mg/dl (65-105)
--- NOTE | 2024-08-05 13:51 | P.CONNP_ITS ---
Assessment and Plan Assessment and plan (1) Hypernatremia: Code(s): E87.0 - Hyperosmolality and hypernatremia Status: Acute Assessment and Plan: The patient's sodium level is high. The patient needs help eating and drinking. he did have a PEG placed last visit but this came out hence he became dehydrated again. Poor p.o. intake of free water. Thus the high sodium is due to free water depletion. he received IV fluids but these have been discontinued. He is receiving tube feeding. The other day he received 934 the tube feedings and 775 of free water. I would think this would be enough but will give a little more D5W to try to get the sodium down more. (2) Acute UTI: Code(s): N39.0 - Urinary tract infection, site not specified Status: Acute Assessment and Plan: The patient has pyuria. He has a urine culture which shows E coli. Sensiti vities are pending. He is on meropenem (3) Hypertension: Code(s): I10 - Essential (primary) hypertension Status: Chronic Assessment and Plan: His blood pressure is up and down between 130s and 160s. As an outpatient he is on Hydralazine and amlodipine. He is off all diuretics (4) Insulin dependent diabetes mellitus: Status: Chronic Assessment and Plan: he is on Accu-Cheks plus insulin sliding scale (5) Dementia: Code(s): F03.90 - Unspecified dementia, unspecified severity, without behavioral disturbance, psychotic disturbance, mood disturbance, and anxiety Status: Acute Assessment and Plan: the patient is not interact (6) Chronic kidney disease, stage 5: Code(s): N18.5 - Chronic kidney disease, stage 5 Status: Acute Assessment and Plan: The patient has chronic kidney disease. Most likely this is due to hypertension and diabetes. Baseline creatinine is around 6-8 His creatinine is very high now. I suspect that most of the increment in creatinine is mostly due to dehydration however there may have been some progression of his underlying chronic kidney disease. the creatinine has improved with the IV fluids. Will give a bit more and see how they do History of Present Illness Reason for Consult Consult date: 08/06/24 Chief Complaint Chief complaint: PEG tube dislodged, LINDSEY on CKD History of Present Illness Narrative: Cristofer is a very pleasant 72-year-old gentleman who has multiple medical problems including dementia, hypertension, diabetes, AFib, and chronic kidney disease. The patient was admitted on the of this month because the G-tube came out and he had abnormal labs. The patient had been in the hospital in early July. His Sodium, BUN and creatinine were all very high. consideration for outpatient dialysis was made. However because of the risk of putting a catheter with his cardiac situation and other comorbidities it was felt that the risk of dialysis was much higher than the benefit. his sodium was corrected with D5W and placing a G-tube and giving free water in addition to tube feedings. The patient was discharged. The patient was sent in by the half-way because The G-tube fell out and his labs became worse again. The patient was seen in the emergency room. He was found to have a high sodium, high creatinine, anemia, and pyuria. Exam showed dehydration. He received IV fluids and antibiotics. GI saw the patient and a PEG was placed once again. BUN and creatinine were high on admission but have improved. Sodium level has been persistently high so renal consultation was requested. [facility] Past Medical History Medical History A-fib Anorexia Aspiration of food Dementia Hypertension Insulin dependent diabetes mellitus Family History Family History Other Unknown family medical history Social History Social History Smoking status: Unknown if ever smoked Second hand tobacco smoke exposure: No Alcohol intake: unknown Substance use: unknown Substance use type: does not use Do You Feel Safe in your Home?: No Lack of Transportation: No Lack of Food: Never True Current Housing: I Have Housing Concerned About Future Housing: No Difficulty Paying Gas/Electric Bills: No Difficulty Paying for Meds: No Currently Unemployed: No Education: Don't Know Difficulty w/ Childcare or Family Care: No Spiritual care concerns: No Meds Home Medications and Allergies Home Medications Medication Instructions Recorded Confirmed Type glucagon 1 mg solution for 1 mg IM PRN PRN Hypoglycemia 04/28/23 07/29/24 History injection (Glucagon Emergency Kit) insulin regular human 100 unit/mL See Rx Instructions .Route .COMPLEX 07/02/24 07/29/24 History injection solution (Humulin R Regular U-100 Insulin) acetaminophen 325 mg tablet 650 mg feeding tube Q6H PRN Pain 07/21/24 07/29/24 Rx (Scale Score 1-3) #30 tabs atorvastatin 20 mg tablet 20 mg feeding tube DAILY #30 tabs 07/21/24 07/29/24 Rx hydralazine 50 mg tablet 50 mg feeding tube TID #90 tabs 07/21/24 07/29/24 Rx insulin glargine 100 unit/mL 6 unit (0.06 mL) subcut HS #30 mL 07/21/24 07/29/24 Rx subcutaneous solution (Lantus U-100 Insulin) sevelamer carbonate 800 mg tablet 800 mg feeding tube TIDWM #90 tabs 07/21/24 07/29/24 Rx (Renvela) Allergies Allergy/AdvReac Type Severity Reaction Status Date / Time No Known Allergies Allergy Verified 07/02/24 09:05 Vital Signs Vital Signs - 24 hr 08/04/24 16:00 08/04/24 19:58 08/04/24 23:45 Temperature 97.2 F L 97.6 F 98.3 F Pulse Rate 87 62 60 Respiratory Rate 20 22 H 24 H Blood Pressure 156/62 H 157/57 H 133/57 L Pulse Oximetry 97 100 100 Oxygen Delivery Fraction of Inspired Oxygen 08/04/24 20:00 08/05/24 03:52 08/05/24 08:10 Temperature 97.5 F L 98.4 F Pulse Rate 62 62 Respiratory Rate 20 16 Blood Pressure 168/56 H 167/65 H Pulse Oximetry 100 100 Oxygen Delivery Room Air Fraction of Inspired Oxygen 08/05/24 08:00 08/05/24 12:40 Temperature 98.1 F Pulse Rate 62 60 Respiratory Rate 16 20 Blood Pressure 143/57 H Pulse Oximetry 100 96 Oxygen Delivery Room Air Fraction of Inspired Oxygen 21 Exam Narrative: Exam Narrative: Well developed thin male lying in the hospital bed in no acute distress Skin is warm and dry without rash Head normocephalic atraumatic Eyes normal sclerae and conjunctivae Mouth normal lips teeth and gums. Mucous membranes mildly dry Neck no nodes no thyromegaly no carotid bruits Axillae no nodes Back no CVA tenderness Lungs symmetric and clear to auscultation and percussion Heart regular rate and rhythm without rub or gallop Abdomen bowel sounds positive soft nontender, no HSM, masses, or bruits. Extremities no cyanosis, clubbing, or edema. Patient cannot straighten the legs. Pulses 2+ equal in radial arteries Psychological not anxious or depressed But not interactive Neuro Not interactive. motor 5/5 cranial nerves 2-12 passively. intact reflexes trace and equal in the biceps; cerebellar no tremor seizure or clonus Results Lab Results 08/06/24 05:53 08/06/24 05:53 Lab results: Most recent lab results Calcium 8.8 mg/dL (8.4-10.2) 08/05/24 07:38 Phosphorus 7.1 mg/dL (2.5-4.5) H 08/03/24 06:08 Magnesium 2.3 mg/dL (1.6-2.3) 08/05/24 07:38
[2024-08-05 16:05] VITALS: BP 124/64; PULSE 59; RESP 20; TEMP 36.7; O2SAT 100
--- NOTE | 2024-08-05 16:07 | PCRCNOTE ---
Attempted twice to call Karli Sheridan to discuss order for CPT Vest therapy. The patient continues to refuse therapy for RT.
[2024-08-05] MEDS: DEXTROSE 5% 1,000 ML 1,000 ML 100 ML IV CONT (17:26)
[2024-08-05] MEDS: MEROPENEM 500 MG/NS 100 ML 500 MG/100 ML BAG 150 MG IVPB (17:26)
[2024-08-05 18:28] LABS: Glucose Point of Care 212 mg/dl (65-105)
[2024-08-05] MEDS: INSULIN ASPART (*BKC) 100 UNITS/ML SUB-Q (18:31)
[2024-08-05] MEDS: HEPARIN SOD/D5W 100 UNITS/ML 25,000 UNITS/250 ML BAG 13 UNITS IV CONT (18:37)
[2024-08-05] MEDS: HEPARIN SODIUM 5,000 UNITS/ML VIAL 5500 UNITS IV PUSH (18:38)
[2024-08-05 18:54] LABS: Basophils Percent Auto 0.2 % (0.2-1.2); Eosinophils Absolute Auto 0.1 K/mm3 (0-0.3); Eosinophils Percent Auto 1.1 % (0-4.4); Hematocrit 23.1 % (42.0-52.0); Immature Granulocyte Absolute 0.05 K/mm3 (0.00-0.031); Immature Granulocyte Percent A 0.8 % (0-0.5); Lymphocytes Absolute Auto 0.79 K/mm3 (0.9-3.2); Lymphocytes Percent Auto 12.3 % (18.3-44.2); Mean Corpuscular HGB Conc 29.9 g/dl (32-36); Mean Corpuscular Hemoglobin 29.6 pg (26-34); Mean Corpuscular Volume 99.1 fl (80-100); Mean Platelet Volume 12.9 fl (7.4-10.4); Monocytes Absolute Auto 0.7 K/mm3 (0.1-0.6); Monocytes Percent Auto 10.5 % (2.6-8.5); Neutrophils Absolute Auto 4.8 K/mm3 (1.3-6.7); Neutrophils Percent Auto 75.1 % (45.5-73.1); Platelet Count Result 200 k/mm3 (150-375); Red Blood Count 2.33 M/mm3 (4.6-6.20); Red Cell Distribution Width 14.1 % (11.5-14.5); White Blood Count 6.4 K/mm3 (4.5-10.0)
[2024-08-05 19:07] LABS: Hemoglobin 6.9 g/dL (14.0-18.0)
[2024-08-05 19:08] LABS: Hypochromasia 1+; INR 1.2; Ovalocytes 1+; Platelet Estimate Adequate (Adequate); Prothrombin Time 15.5 Seconds (11.1-14.7); Schistocytes None Seen
[2024-08-05 19:09] LABS: Partial Thromboplastin Time 31.5 Seconds (22.3-36.8)
[2024-08-05 19:24] LABS: Immature Reticulocyte Fraction 11.8 % (3.0-15.9); Reticulocyte Hemoglobin Conten 29.6 pg (28.2-36.6); Reticulocyte Percent 1.85 % (0.7-4.3); Reticulocytes Absolute 0.04 10^6/uL (0.02-0.10)
[2024-08-05 20:00] VITALS: BP 144/53; PULSE 65; RESP 16; TEMP 36.8; O2SAT 98
[2024-08-05 21:09] LABS: Iron 63 ug/dL (49-181); Percent Iron Saturation 32 % (20-50)
[2024-08-05 21:10] LABS: Lactate Dehydrogenase > 1000 U/L (120-246)
[2024-08-05] MEDS: INSULIN GLARGINE (*BKC) 100 UNITS/ML 6 UNITS SUB-Q (21:21)
[2024-08-05 22:13] LABS: Ferritin > 2000.00 ng/mL (11.1-264)
[2024-08-06] VITALS: BP 134/51; PULSE 60; RESP 19; TEMP 36.7; O2SAT 100
[2024-08-06] LABS: Glucose Point of Care 191 mg/dl (65-105)
[2024-08-06] MEDS: METOCLOPRAMIDE HCL INJ 10 MG/2 ML VIAL 5 MG IV PUSH ×2 (00:55→05:14)
[2024-08-06 02:26] LABS: Partial Thromboplastin Time > 200.0 Seconds (22.3-36.8)
[2024-08-06 04:00] VITALS: BP 145/58; PULSE 60; RESP 20; TEMP 36.3; O2SAT 99
[2024-08-06 05:10] LABS: Glucose Point of Care 229 mg/dl (65-105)
[2024-08-06] MEDS: INSULIN ASPART (*BKC) 100 UNITS/ML SUB-Q ×2 (05:14→14:09)
[2024-08-06] MEDS: hydrALAZINE HCL 50 MG TABLET 100 MG FEED TUBE ×3 (05:14→21:12)
[2024-08-06 06:48] LABS: Basophils Percent Auto 0.1 % (0.2-1.2); Eosinophils Absolute Auto 0.2 K/mm3 (0-0.3); Eosinophils Percent Auto 2.5 % (0-4.4); Hematocrit 23.6 % (42.0-52.0); Immature Granulocyte Absolute 0.07 K/mm3 (0.00-0.031); Immature Platelet Fraction Pct 3.6 % (0.9-11.2); Lymphocytes Absolute Auto 0.72 K/mm3 (0.9-3.2); Lymphocytes Percent Auto 10.6 % (18.3-44.2); Mean Corpuscular HGB Conc 29.7 g/dl (32-36); Mean Corpuscular Hemoglobin 29.7 pg (26-34); Mean Platelet Volume 13.6 fl (7.4-10.4); Monocytes Absolute Auto 0.4 K/mm3 (0.1-0.6); Neutrophils Absolute Auto 5.4 K/mm3 (1.3-6.7); Neutrophils Percent Auto 79.8 % (45.5-73.1); Platelet Count Result 186 k/mm3 (150-375); Red Blood Count 2.36 M/mm3 (4.6-6.20); Red Cell Distribution Width 13.9 % (11.5-14.5); White Blood Count 6.8 K/mm3 (4.5-10.0)
[2024-08-06 07:07] LABS: NT Pro B Type Natriuretic Pept 7360 pg/mL (19.9-100)
[2024-08-06 07:19] LABS: Albumin Level 2.6 g/dL (3.5-5.1); Alkaline Phosphatase 304 U/L (38-126); Anion Gap 12 mmol/L (4-12); Bilirubin,Total 0.5 mg/dL (0.2-1.3); Calcium 8.4 mg/dL (8.4-10.2); Carbon Dioxide 24 mmol/L (22-30); Chloride 109 mmol/L (98-107); Estimated CRCL calculation 8 ml/min; Estimated Glomerular Filt Rate 9; Glucose 236 mg/dL (65-110); Magnesium 2.3 mg/dL (1.6-2.3); Potassium 3.8 mmol/L (3.4-5.0); Sodium 145 mmol/L (137-145)
[2024-08-06 07:32] LABS: Alanine Aminotransferase 1109 U/L (6-50); Aspartate Amino Transferase 1441 U/L (17-59); Blood Urea Nitrogen 223 mg/dL (9-20)
[2024-08-06 07:40] LABS: Anisocytosis 1+; Hypochromasia 1+; Ovalocytes 1+; Platelet Estimate Adequate (Adequate); Schistocytes Rare
[2024-08-06 08:00] VITALS: BP 129/51; PULSE 63; RESP 20; TEMP 36.2; O2SAT 100
--- NOTE | 2024-08-06 08:21 | P.PNIM_ITS ---
Progress Note: A&P Assessment and Plan (1) PEG tube malfunction: Code(s): K94.23 - Gastrostomy malfunction Status: Acute Assessment and Plan: * HX of aspiration * recent placement of peg tube * Dislodged per KUB * GI consulted * Monitor electrolytes replenish as needed and adjust flushes as needed for any hypernatremia * Peg tube placement 08/01 * NA slowly improving with increased free water flush * Increased FWF to 200 ml on 08/03 * Reglan added to help with GI motility, and decrease risk of aspiration, tube feed goal 50 mils per hour for adequate nutrition (2) Renal failure (ARF), acute on chronic: Code(s): N17.9 - Acute kidney failure, unspecified; N18.9 - Chronic kidney disease, unspecified Status: Acute Assessment and Plan: nephrology on board * Acute on Chronic ESRD * Patient is not a candidate for hemodialysis--from Dr Weiner's note on 07/19/24 considering his mental status and considerable morbidity related to starting dialysis especially with the high risk of placing a catheter in general, it would seem that the risks HD catheter placement as well as dialysis far exceeds the benefit, . * Patient's facility is working to on obtaining guardianship and then patient will be made DNR. * Renvela was stopped for some reason, maybe due to displaced g-tube. Continue phosphorus binder now. * Monitor antihypertensive drug therapy. * Avoid NSAIDs/nephrotoxins, follow creatinine/BUN, electrolytes. Renally dose meds (3) Insulin dependent diabetes mellitus: Status: Chronic Assessment and Plan: * Accu-Cheks A6HR on tube feeds, SSI * Continue Lantus 6hs * Watch for hypoglycemia/hypoglycemic protocol ordered * Blood sugars relatively controlled on current regimen (4) Pneumonia: Code(s): J18.9 - Pneumonia, unspecified organism Status: Acute Assessment and Plan: Chest x-ray 08/04 showed bibasilar lower lobe small pleural effusions. WBC has been trending down since admission. Afebrile and on RA --Repeat chest x-ray today. --Consider repeat CT chest if not improving. Would avoid IV contrast under almost all circumstances since very likely to worsen renal failure and no options for dialysis --On Ceftriaxone --WBC increased to 18.8 with elevation in procalcitonin of 3.8 and elevated CRP --Blood cultures 08/02 NGTD * Broadened to Meropenem to cover for ESBL as urine is cloudy, hull-yellow with sediment present. Added atypical PNA coverage with azithromycin for 5 days. 08/02-08/06 * CT chest shows area of consolidation to lateral, basilar right lower lobe with small bilateral pleural effusions * He sounds more congested today. Will start CPT vest therapy, add Mucinex. * completed IV antibiotics, will complete p.o. antibiotics today (5) Hypertension: Code(s): I10 - Essential (primary) hypertension Status: Chronic Assessment and Plan: improved * patient hypertensive admission * had missed his blood pressure medication * resume hydralazine t.i.d. through tube * added p.r.n. hydralazine for systolic over 180 * Patient still hypertensive systolic's 170's * increased his hydralazine to 100 TID * Added low dose amlodipine 5 mg daily. Patient was on this last admission but medication was stopped due to low blood pressure. * Blood pressure marginally better (6) Dementia: Code(s): F03.90 - Unspecified dementia, unspecified severity, without behavioral disturbance, psychotic disturbance, mood disturbance, and anxiety Status: Acute Assessment and Plan: * Alert and oriented x1 * at baseline (7) Hypernatremia: Code(s): E87.0 - Hyperosmolality and hypernatremia Status: Acute Assessment and Plan: improved * NA 140 07/21/24 up to 152 on admission 07/28 and has been slowly trending down with fluids 152<155>150 but now holding fluids for possible fluid overload * daily bmp * Consult renal okay to stop D5W, continue with free water flushes at 200 every 4 hours (8) Acute UTI: Code(s): N39.0 - Urinary tract infection, site not specified Status: Acute Assessment and Plan: Urine in roth tubing is cloudy yellow-hull with sediment and mucous present. Concerns for possible recurrent UTI. * History of ESBL and increasing WBC despite Rocephin. * UA 08/02 4+ bacteria & 50-100 WBC. Culture growing Ecol. Follow sensitivities * blood cultures 08/02 NGTD * Switched to meropenem 08/02-08/06 * Likely will need midline placed for IV antibiotics at discharge should culture grow ESBL again. Awaiting blood cultures to result. * CT abdomen and pelvis shows bladder wall thickening and haziness to surrounding fat suggestive of cystitis acute or chronic. Has a Roth catheter in place. Change today if not done (9) Respiratory failure: Code(s): J96.90 - Respiratory failure, unspecified, unspecified whether with hypoxia or hypercapnia Status: Acute Assessment and Plan: Still on RA but coarse lungs and mild tachypnea --chest x-ray showed bilateral lower extremity edema --Repeat Chest x-ray --Check NT-proBNP (10) DVT (deep venous thrombosis): Code(s): I82.409 - Acute embolism and thrombosis of unspecified deep veins of unspecified lower extremity Status: Acute Assessment and Plan: left subclavian vein (which is a deep vein) and thrombosis of the right cephalic vein heparin drip per protocol stopped Due to loss of IV access therapeutic Lovenox (11) Elevated LFTs: Code(s): R79.89 - Other specified abnormal findings of blood chemistry Status: Acute Assessment and Plan: acute spike from yesterday abdominal ultrasound pending Plan Code status: Full code DVT prophylaxis: Lovenox Stress ulcer prophylaxis: Protonix 40 daily PT/OT notes: bedbound Disposition: Patient admitted for a dislodged PEG tube, was placed 08/01. Will need abdominal binder at discharge plan to return back to long-term facility once medically stable. Pending improvement in hypernatremia, improvement in shortness of breath & mild tachypnea Time Spent With Patient Time: Includes review of chart, time spent family, consulting teams and nursing. Vital signs were reviewed and they are stable. His medications will be reviewed and resumed as appropriate. Findings and treatment plan were discussed with the patient. Questions were solicited and answered to satisfaction. Care plan was discussed with nursing. greater than 55 minutes Subjective Date/time seen: 08/06/24 08:21 Interval history: 73-year-old male with past medical history significant for dementia, patient is oriented times once at times, end-stage renal disease not on dialysis, Comes to the emergency room after his PEG tube was dislodged s/p replaced. patient was seen yesterday by Nephrology for hypernatremia and started on D5W, patient was also found to have a left subclavian vein DVT start heparin drip, echocardiogram pending. PTT came back over 200 this morning heparin manage per protocol, question if this is a error sample versus real elevated LFTs, acute spike in LFTs overnight abdominal ultrasound pending due to severe swelling in bilateral arms unable place PIV, due to upper extremity DVTs unable place midline, antibiotics are completed today will transition to meds per tube, will try to avoid femoral line due to infection risk addendum: Abdominal ultrasound shows Gallbladder sludge/stones with gallbladder wall thickening. Patient now with left subclavian vein (which is a deep vein) and thrombosis of the right cephalic vein, acute liver injury with AST 1441, ALT 1109, alkaline phos 304, on top of already needing pacemaker, and a dialysis catheter cannot be placed due to patient's comorbidities. Case discussed with Kelsey LOPEZ and Dr. Brooke from the hospitalist team. Will contact ethics, case management, GI, surgery Services and Nephrology in the morning to pursue fatality of care, and move patient to comfort measures only. Review of Systems Review of Systems: ROS unobtainable: Yes unobtainable due to medical condition and unobtainable due to mental status ( Advanced dementia) Exam Narrative: General: overall appears comfortable but mildly tachypneic/shallow breathing, in no acute distress, nonverbal but awake and responsive Respiratory: mild tachypnea, lungs are coarse without wheezing or rhonchi. Cardiovascular: Rate and rhythm regular, normal s1s2, no murmur Abdomen: Soft, round, non-tender, active bowel sounds, g-tube with abdominal bi nder in place Extremities: No cyanosis, dependent pitting edema to bilateral upper extremities, L>R, no clubbing. Pulses 2/2 Neuro: Alert and non-verbal, moves all extremities with generalized weakness. Skin: Warm, dry, intact. Left gluteus with pressure related ulcer with eschar wound bed. Const: General: comfortable, no acute distress, well developed, alert, awake, ill appearing chronically and average body habitus Nutritional Appearance: average body habitus HENMT: Head: normal to inspection, normocephalic and atraumatic Ears: hearing grossly normal bilaterally Face/Nose/Sinus: normal facial exam Face and sinus: normal facial exam Eyes: General: appearance normal, both eyes and all related structures Pupils: Equal, round and reactive pupils present EOM: EOMs intact bilaterally Neck: Neck: full ROM, no lymphadenopathy and no JVD Thyroid: thyroid normal Lymphatic: no lymphadenopathy noted Resp: Effort & Inspection: normal respiratory effort and able to speak in complete sentences Auscultation: clear to auscultation bilaterally Cardio: Jugular venous distension: no JVD Rate: regular rate Rhythm: regular rhythm Heart sounds: S1 normal heart sound present and S2 normal heart sound present : General: Yes deferred Skin: Rashes: no rashes Other: patient has some abrasions Neuro: General: no focal motor deficits, CN's II-XI intact bilaterally and Unable to assess gait Cranial nerves: Yes CN's II-XII intact bilaterally and Yes Equal, round and reactive pupils present Cognition (Neuro): abnormal cognition ( dementia) Speech: normal speech Gait exam (Neuro): Unable to assess gait Motor exam (neuro): 5/5 motor strength present throughout Extrem: General: normal to inspection, full ROM, no joint enlargement and no pedal edema Objective Data Vital Signs Vital Signs: Vital Signs - 24 hr 08/05/24 12:40 08/05/24 16:05 08/05/24 20:00 Temperature 98.1 F 98.1 F 98.3 F Pulse Rate 60 59 L 65 Respiratory Rate 20 20 16 Blood Pressure 143/57 H 124/64 144/53 H Pulse Oximetry 96 100 98 Oxygen Delivery Fraction of Inspired Oxygen 08/05/24 20:00 08/06/24 00:00 08/06/24 04:00 Temperature 98.1 F 97.3 F L Pulse Rate 65 60 60 Respiratory Rate 16 19 20 Blood Pressure 134/51 L 145/58 H Pulse Oximetry 98 100 99 Oxygen Delivery Room Air Fraction of Inspired Oxygen 21 Intake/Output Intake/Output: Intake & Output 08/03/24 08/04/24 08/05/24 08/06/24 23:59 23:59 23:59 23:59 Intake Total 1809 100 102.1 Output Total 850 1050 825 350 Balance 959 -950 -825 -247.9 Meds/Results Medications: Active Medications Generic Name Dose Route Start Last Admin Trade Name Freq PRN Reason Stop Dose Admin Acetaminophen 650 mg 07/30/24 10:37 Acetaminophen 650 Mg Suppository RECTAL Q6H PRN Mild Pain (1-3) or Fever Hydrocodone Bitart/Acetaminophen 1 tab 07/30/24 14:29 Hydrocodone/Acetaminophen (*Crx) 5-325 Mg Tablet FEED TUBE Q6H PRN Pain Rated 4-6 Amlodipine Besylate 5 mg 08/04/24 09:00 08/05/24 09:00 Amlodipine Besylate 5 Mg Tablet FEED TUBE 5 mg DAILY URIAH Administration Atorvastatin Calcium 20 mg 07/30/24 09:00 08/05/24 09:00 Atorvastatin 20 Mg Tablet FEED TUBE 20 mg DAILY URIAH Administration Azithromycin 500 mg 08/02/24 17:55 08/05/24 08:59 Azithromycin 250 Mg Tablet FEED TUBE 08/06/24 22:00 500 mg DAILY URIAH Administration Calcium Acetate 667 mg 08/03/24 13:00 08/05/24 17:25 Calcium Acetate 667 Mg Tablet FEED TUBE 667 mg TID URIAH Administration Collagenase 1 applic 07/31/24 10:45 08/05/24 09:01 Collagenase Oint 30 Gm Tube TOPICAL 1 applic QAM URIAH Administration Dextrose 12.5 gm 07/29/24 11:33 Dextrose 50% 25 Gm/50 Ml Syringe IV PUSH PRN PRN Hypoglycemia Protocol Glucagon 1 mg 07/29/24 11:33 Glucagon For Inj 1 Mg Vial IM PRN PRN Hypoglycemia Protocol Glucose 15 gm 07/29/24 11:33 Glucose Oral Gel 15 Gm Of Glucse In 37.5 Gm Tube PO PRN PRN Hypoglycemia Protocol Guaifenesin 600 mg 08/03/24 21:00 08/05/24 21:20 Guaifenesin 12 Hr 600 Mg Tabcr PO 600 mg Q12HR URIAH Administration Heparin Sodium (Porcine) 5,500 units 08/05/24 18:19 Heparin Sodium 5,000 Units/Ml Vial IV PUSH PRN PRN aPTT less than 55 seconds Heparin Sodium (Porcine) 3,000 units 08/05/24 18:19 Heparin Sodium 5,000 Units/Ml Vial IV PUSH PRN PRN aPTT 55 - 70 seconds Hydralazine HCl 20 mg 07/30/24 10:36 08/02/24 00:39 Hydralazine Hcl 20 Mg/Ml Vial IV PUSH 20 mg Q8H PRN Administration Hypertension Hydralazine HCl 100 mg 08/01/24 14:00 08/06/24 05:14 Hydralazine Hcl 50 Mg Tablet FEED TUBE 100 mg Q8HR URIAH Administration Dextrose 1,000 mls @ 100 mls/hr 07/29/24 11:33 Dextrose 5% 1,000 Ml IVPB PRN PRN Hypoglycemia Protocol Meropenem 500 mg in 100 mls @ 200 mls/hr 08/02/24 18:00 08/05/24 17:26 IVPB 150 mls/hr Q24H URIAH Administration Heparin Sodium/Dextrose 25,000 units in 250 mls @ 11 mls/hr 08/05/24 18:20 08/06/24 03:28 Heparin Sodium/D5w 100 Units/Ml IV CONT 1,100 units/hr .[id number] URIAH 11 mls/hr Titration Protocol 1,100 UNITS/HR Insulin Aspart 2 - 5 units 07/29/24 12:00 08/06/24 05:14 Insulin Aspart (*Bkc) 100 Units/Ml SUB-Q 2 units Q6HR URIAH Administration Protocol Insulin Glargine 6 units 07/30/24 21:00 08/05/24 21:21 Insulin Glargine (*Bkc) 100 Units/Ml SUB-Q 6 units HS URIAH Administration Morphine Sulfate 2 mg 07/30/24 14:28 07/31/24 17:25 Morphine Sulfate (*Crx) 2 Mg/Ml Inj IV PUSH 2 mg Q4H PRN Administration Pain Rated 7-10 Sevelamer Carbonate 1 each 08/02/24 08:00 08/05/24 17:25 0.8gm Powder Packet FEED TUBE 09/01/24 07:59 1 each TIDWM URIAH Administration Ondansetron HCl 4 mg 07/30/24 10:37 Ondansetron Inj 4 Mg/2 Ml Vial IV PUSH Q6H PRN Nausea And Vomiting Perflutren Lipid Microsphere 0 ml 08/05/24 11:08 Perflutren Lipid Microspheres 1.5 Ml Vial Diluted To 10 Ml Total Volume IV PUSH 08/08/24 11:08 ONCE PRN adequate visualization Protocol Radiology Results: ITS Impressions Abdomen X-Ray 07/30/24 07:14 IMPRESSION: 1. Nasogastric tube in stomach. 2. Persistent mild opacities at the right lung base which could represent atelectasis or pneumonia and likely tiny bilateral pleural effusions. Chest/Abdomen/Pelvis CT 08/02/24 17:17 IMPRESSION: 1. Mild emphysema with small bilateral pleural effusions and region of consolidation at the lateral basilar right lower lobe which could represent atelectasis or pneumonia. 2. Cardiomegaly with prominent left ventricular enlargement. 3. Multinodular goiter. Consider thyroid ultrasound for risk stratification. 4. Roth catheter in the bladder with wall thickening and slight haziness to the surrounding fat suggestive of cystitis either acute or chronic. Correlate with urinalysis. 5. Cholelithiasis. 6. Large right hydrocele. 7. Nonspecific mild diffuse edema of the intra-abdominal/pelvic and body wall fat. Chest X-Ray 08/05/24 11:07 IMPRESSION: Mild infiltrate or atelectasis at the lung bases, stable or mildly improved since 08/03/2024 Venous Doppler Study 08/05/24 12:50 IMPRESSION: Right cephalic vein thrombosis Thrombus within left subclavian vein Labs Labs: Laboratory Results - last 24 hr 08/05/24 08/05/24 08/05/24 07:38 12:46 18:23 WBC 10.5 H RBC 2.47 L Hgb 7.2 L Hct 24.7 L MCV 100.0 MCH 29.1 MCHC 29.1 L RDW 13.8 Plt Count 207 MPV 12.1 H Immature Gran % (Auto) Neut % (Auto) Lymph % (Auto) Spink % (Auto) Eos % (Auto) Baso % (Auto) Lymph # (Auto) Spink # (Auto) Eos # (Auto) Baso # (Auto) Abs Immat Gran (auto) Absolute Neuts (auto) Absolute Nucleated RBC Nucleated RBC % Platelet Estimate % Immature Plt Fraction Hypochromasia Anisocytosis Ovalocytes Schistocytes Absolute Retic Percent Retic Immature Retic Fraction Retic Hgb Content PT INR APTT Sodium 150 H Potassium 3.9 Chloride 114 H Carbon Dioxide 24 Anion Gap 12 BUN 211 H Creatinine 7.90 H Estim Creat Clear Calc 7 Estimated GFR 8 L Glucose 202 H POC Capillary Glucose 188 H 212 H Calcium 8.8 Magnesium 2.3 Iron TIBC % Saturation Ferritin Total Bilirubin 0.4 AST 33 ALT 25 Alkaline Phosphatase 121 Lactate Dehydrogenase NT-Pro-B Natriuret Pep Total Protein 6.0 L Albumin 2.7 L Blood Type Antibody Screen Crossmatch 08/05/24 08/05/24 08/05/24 18:34 18:39 20:14 WBC 6.4 RBC 2.33 L Hgb 6.9 L* Hct 23.1 L MCV 99.1 MCH 29.6 MCHC 29.9 L RDW 14.1 Plt Count 200 MPV 12.9 H Immature Gran % (Auto) 0.8 H Neut % (Auto) 75.1 H Lymph % (Auto) 12.3 L Spink % (Auto) 10.5 H Eos % (Auto) 1.1 Baso % (Auto) 0.2 Lymph # (Auto) 0.79 L Spink # (Auto) 0.7 H Eos # (Auto) 0.1 Baso # (Auto) 0.0 Abs Immat Gran (auto) 0.05 H Absolute Neuts (auto) 4.8 Absolute Nucleated RBC 0.000 Nucleated RBC % 0.0 Platelet Estimate Adequate % Immature Plt Fraction Hypochromasia 1+ Anisocytosis Ovalocytes 1+ Schistocytes None seen Absolute Retic 0.04 Percent Retic 1.85 Immature Retic Fraction 11.8 Retic Hgb Content 29.6 PT 15.5 H INR 1.2 APTT 31.5 Sodium Potassium Chloride Carbon Dioxide Anion Gap BUN Creatinine Estim Creat Clear Calc Estimated GFR Glucose POC Capillary Glucose Calcium Magnesium Iron 63 TIBC 199 L % Saturation 32 Ferritin > 2000.00 H Total Bilirubin AST ALT Alkaline Phosphatase Lactate Dehydrogenase > 1000 H NT-Pro-B Natriuret Pep Total Protein Albumin Blood Type B Positive Antibody Screen Negative Crossmatch See Detail 08/05/24 08/06/24 08/06/24 23:57 01:47 05:07 WBC RBC Hgb Hct MCV MCH MCHC RDW Plt Count MPV Immature Gran % (Auto) Neut % (Auto) Lymph % (Auto) Spink % (Auto) Eos % (Auto) Baso % (Auto) Lymph # (Auto) Spink # (Auto) Eos # (Auto) Baso # (Auto) Abs Immat Gran (auto) Absolute Neuts (auto) Absolute Nucleated RBC Nucleated RBC % Platelet Estimate % Immature Plt Fraction Hypochromasia Anisocytosis Ovalocytes Schistocytes Absolute Retic Percent Retic Immature Retic Fraction Retic Hgb Content PT INR APTT > 200.0 H* Sodium Potassium Chloride Carbon Dioxide Anion Gap BUN Creatinine Estim Creat Clear Calc Estimated GFR Glucose POC Capillary Glucose 191 H 229 H Calcium Magnesium Iron TIBC % Saturation Ferritin Total Bilirubin AST ALT Alkaline Phosphatase Lactate Dehydrogenase NT-Pro-B Natriuret Pep Total Protein Albumin Blood Type Antibody Screen Crossmatch 08/06/24 05:53 WBC 6.8 RBC 2.36 L Hgb 7.0 L Hct 23.6 L MCV 100.0 MCH 29.7 MCHC 29.7 L RDW 13.9 Plt Count 186 MPV 13.6 H Immature Gran % (Auto) 1.0 H Neut % (Auto) 79.8 H Lymph % (Auto) 10.6 L Spink % (Auto) 6.0 Eos % (Auto) 2.5 Baso % (Auto) 0.1 L Lymph # (Auto) 0.72 L Spink # (Auto) 0.4 Eos # (Auto) 0.2 Baso # (Auto) 0.0 Abs Immat Gran (auto) 0.07 H Absolute Neuts (auto) 5.4 Absolute Nucleated RBC 0.000 Nucleated RBC % 0.0 Platelet Estimate Adequate % Immature Plt Fraction 3.6 Hypochromasia 1+ Anisocytosis 1+ Ovalocytes 1+ Schistocytes Rare Absolute Retic Percent Retic Immature Retic Fraction Retic Hgb Content PT INR APTT Sodium 145 Potassium 3.8 Chloride 109 H Carbon Dioxide 24 Anion Gap 12 BUN 223 H Creatinine 7.60 H Estim Creat Clear Calc 8 Estimated GFR 9 L Glucose 236 H POC Capillary Glucose Calcium 8.4 Magnesium 2.3 Iron TIBC % Saturation Ferritin Total Bilirubin 0.5 AST 1441 H ALT 1109 H Alkaline Phosphatase 304 H Lactate Dehydrogenase NT-Pro-B Natriuret Pep 7360 H Total Protein 6.0 L Albumin 2.6 L Blood Type Antibody Screen Crossmatch Quality VTE Prophylaxis VTE prophylaxis: mechanical ordered and pharmacologic ordered
--- NOTE | 2024-08-06 08:52 | PC.NURSE ---
Beni sound called RN and informed me to hold tube feeds for a couple hours since pt needs a scan
--- NOTE | 2024-08-06 08:58 | PM.PNNEP ---
Progress Note: A&P Assessment and Plan (1) Chronic kidney disease, stage 5: Code(s): N18.5 - Chronic kidney disease, stage 5 Status: Acute Assessment and Plan: The patient has CKD stage 5. This is due to diabetes and hypertension. Baseline creatinine is between 6 and 8. the patient is not a candidate for dialysis because of the risks of placing a permanent catheter and also the considerable morbidity associated with the process of dialysis. With his comorbidities, the benefit of dialysis does not outweigh these risks. (2) LINDSEY (acute kidney injury): Code(s): N17.9 - Acute kidney failure, unspecified Status: Acute Assessment and Plan: The patient had a high creatinine on admission. He has been treated with antibiotics and IV fluids and has improved. (3) Hypernatremia: Code(s): E87.0 - Hyperosmolality and hypernatremia Status: Acute Assessment and Plan: This is a recurrent issue because of free water insufficiency. His G tube had fallen out the [facility] so his sodium went up there. 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 On heparin drip. (5) PEG tube malfunction: Code(s): K94.23 - Gastrostomy malfunction Status: Acute Assessment and Plan: A new PEG was placed (6) Hypertension: Code(s): I10 - Essential (primary) hypertension Status: Chronic Assessment and Plan: blood pressure is under pretty good control. Systolic is 145 the small Subjective Date/time seen: 08/06/24 08:58 Interval history: Patient is awake. Eyes open but does not interact. Exam Narrative: WDWN in NAD skin no rash head ncat lungs clear cor reg no rub abd BS+ nontender and soft ext no edema. Objective Data Vital Signs Vital Signs: Vital Signs - 24 hr 08/05/24 12:40 08/05/24 16:05 08/05/24 20:00 Temperature 98.1 F 98.1 F 98.3 F Pulse Rate 60 59 L 65 Respiratory Rate 20 20 16 Blood Pressure 143/57 H 124/64 144/53 H Pulse Oximetry 96 100 98 Oxygen Delivery Fraction of Inspired Oxygen 08/05/24 20:00 08/06/24 00:00 08/06/24 04:00 Temperature 98.1 F 97.3 F L Pulse Rate 65 60 60 Respiratory Rate 16 19 20 Blood Pressure 134/51 L 145/58 H Pulse Oximetry 98 100 99 Oxygen Delivery Room Air Fraction of Inspired Oxygen 21 Intake/Output Intake/Output: Intake & Output 08/03/24 08/04/24 08/05/24 08/06/24 23:59 23:59 23:59 23:59 Intake Total 1809 100 102.1 Output Total 850 1050 825 350 Balance 959 -950 -825 -247.9 Meds/Results Medications: Active Medications Generic Name Dose Route Start Last Admin Trade Name Freq PRN Reason Stop Dose Admin Acetaminophen 650 mg 07/30/24 10:37 Acetaminophen 650 Mg Suppository RECTAL Q6H PRN Mild Pain (1-3) or Fever Hydrocodone Bitart/Acetaminophen 1 tab 07/30/24 14:29 Hydrocodone/Acetaminophen (*Crx) 5-325 Mg Tablet FEED TUBE Q6H PRN Pain Rated 4-6 Amlodipine Besylate 5 mg 08/04/24 09:00 08/05/24 09:00 Amlodipine Besylate 5 Mg Tablet FEED TUBE 5 mg DAILY URIAH Administration Atorvastatin Calcium 20 mg 07/30/24 09:00 08/05/24 09:00 Atorvastatin 20 Mg Tablet FEED TUBE 20 mg DAILY URIAH Administration Azithromycin 500 mg 08/02/24 17:55 08/05/24 08:59 Azithromycin 250 Mg Tablet FEED TUBE 08/06/24 22:00 500 mg DAILY URIAH Administration Calcium Acetate 667 mg 08/03/24 13:00 08/05/24 17:25 Calcium Acetate 667 Mg Tablet FEED TUBE 667 mg TID URIAH Administration Collagenase 1 applic 07/31/24 10:45 08/05/24 09:01 Collagenase Oint 30 Gm Tube TOPICAL 1 applic QAM URIAH Administration Dextrose 12.5 gm 07/29/24 11:33 Dextrose 50% 25 Gm/50 Ml Syringe IV PUSH PRN PRN Hypoglycemia Protocol Glucagon 1 mg 07/29/24 11:33 Glucagon For Inj 1 Mg Vial IM PRN PRN Hypoglycemia Protocol Glucose 15 gm 07/29/24 11:33 Glucose Oral Gel 15 Gm Of Glucse In 37.5 Gm Tube PO PRN PRN Hypoglycemia Protocol Guaifenesin 600 mg 08/03/24 21:00 08/05/24 21:20 Guaifenesin 12 Hr 600 Mg Tabcr PO 600 mg Q12HR URIAH Administration Heparin Sodium (Porcine) 5,500 units 08/05/24 18:19 Heparin Sodium 5,000 Units/Ml Vial IV PUSH PRN PRN aPTT less than 55 seconds Heparin Sodium (Porcine) 3,000 units 08/05/24 18:19 Heparin Sodium 5,000 Units/Ml Vial IV PUSH PRN PRN aPTT 55 - 70 seconds Hydralazine HCl 20 mg 07/30/24 10:36 08/02/24 00:39 Hydralazine Hcl 20 Mg/Ml Vial IV PUSH 20 mg Q8H PRN Administration Hypertension Hydralazine HCl 100 mg 08/01/24 14:00 08/06/24 05:14 Hydralazine Hcl 50 Mg Tablet FEED TUBE 100 mg Q8HR URIAH Administration Dextrose 1,000 mls @ 100 mls/hr 07/29/24 11:33 Dextrose 5% 1,000 Ml IVPB PRN PRN Hypoglycemia Protocol Meropenem 500 mg in 100 mls @ 200 mls/hr 08/02/24 18:00 08/05/24 17:26 IVPB 150 mls/hr Q24H URIAH Administration Heparin Sodium/Dextrose 25,000 units in 250 mls @ 11 mls/hr 08/05/24 18:20 08/06/24 03:28 Heparin Sodium/D5w 100 Units/Ml IV CONT 1,100 units/hr .[id number] URIAH 11 mls/hr Titration Protocol 1,100 UNITS/HR Insulin Aspart 2 - 5 units 07/29/24 12:00 08/06/24 05:14 Insulin Aspart (*Bkc) 100 Units/Ml SUB-Q 2 units Q6HR URIAH Administration Protocol Insulin Glargine 6 units 07/30/24 21:00 08/05/24 21:21 Insulin Glargine (*Bkc) 100 Units/Ml SUB-Q 6 units HS URIAH Administration Morphine Sulfate 2 mg 07/30/24 14:28 07/31/24 17:25 Morphine Sulfate (*Crx) 2 Mg/Ml Inj IV PUSH 2 mg Q4H PRN Administration Pain Rated 7-10 Sevelamer Carbonate 1 each 08/02/24 08:00 08/05/24 17:25 0.8gm Powder Packet FEED TUBE 09/01/24 07:59 1 each TIDWM URIAH Administration Ondansetron HCl 4 mg 07/30/24 10:37 Ondansetron Inj 4 Mg/2 Ml Vial IV PUSH Q6H PRN Nausea And Vomiting Perflutren Lipid Microsphere 0 ml 08/05/24 11:08 Perflutren Lipid Microspheres 1.5 Ml Vial Diluted To 10 Ml Total Volume IV PUSH 08/08/24 11:08 ONCE PRN adequate visualization Protocol Radiology Results: ITS Impressions Abdomen X-Ray 07/30/24 07:14 IMPRESSION: 1. Nasogastric tube in stomach. 2. Persistent mild opacities at the right lung base which could represent atelectasis or pneumonia and likely tiny bilateral pleural effusions. Chest/Abdomen/Pelvis CT 08/02/24 17:17 IMPRESSION: 1. Mild emphysema with small bilateral pleural effusions and region of consolidation at the lateral basilar right lower lobe which could represent atelectasis or pneumonia. 2. Cardiomegaly with prominent left ventricular enlargement. 3. Multinodular goiter. Consider thyroid ultrasound for risk stratification. 4. Lan catheter in the bladder with wall thickening and slight haziness to the surrounding fat suggestive of cystitis either acute or chronic. Correlate with urinalysis. 5. Cholelithiasis. 6. Large right hydrocele. 7. Nonspecific mild diffuse edema of the intra-abdominal/pelvic and body wall fat. Chest X-Ray 08/05/24 11:07 IMPRESSION: Mild infiltrate or atelectasis at the lung bases, stable or mildly improved since 08/03/2024 Venous Doppler Study 08/05/24 12:50 IMPRESSION: Right cephalic vein thrombosis Thrombus within left subclavian vein Labs Labs: Laboratory Results - last 24 hr 08/05/24 08/05/24 08/05/24 12:46 18:23 18:34 WBC RBC Hgb Hct MCV MCH MCHC RDW Plt Count MPV Immature Gran % (Auto) Neut % (Auto) Lymph % (Auto) Terrell % (Auto) Eos % (Auto) Baso % (Auto) Lymph # (Auto) Terrell # (Auto) Eos # (Auto) Baso # (Auto) Abs Immat Gran (auto) Absolute Neuts (auto) Absolute Nucleated RBC Nucleated RBC % Platelet Estimate % Immature Plt Fraction Hypochromasia Anisocytosis Ovalocytes Schistocytes Absolute Retic 0.04 Percent Retic 1.85 Immature Retic Fraction 11.8 Retic Hgb Content 29.6 PT INR APTT Sodium Potassium Chloride Carbon Dioxide Anion Gap BUN Creatinine Estim Creat Clear Calc Estimated GFR Glucose POC Capillary Glucose 188 H 212 H Calcium Magnesium Iron TIBC % Saturation Ferritin Total Bilirubin AST ALT Alkaline Phosphatase Lactate Dehydrogenase NT-Pro-B Natriuret Pep Total Protein Albumin Blood Type Antibody Screen Crossmatch 08/05/24 08/05/24 08/05/24 18:39 20:14 23:57 WBC 6.4 RBC 2.33 L Hgb 6.9 L* Hct 23.1 L MCV 99.1 MCH 29.6 MCHC 29.9 L RDW 14.1 Plt Count 200 MPV 12.9 H Immature Gran % (Auto) 0.8 H Neut % (Auto) 75.1 H Lymph % (Auto) 12.3 L Terrell % (Auto) 10.5 H Eos % (Auto) 1.1 Baso % (Auto) 0.2 Lymph # (Auto) 0.79 L Terrell # (Auto) 0.7 H Eos # (Auto) 0.1 Baso # (Auto) 0.0 Abs Immat Gran (auto) 0.05 H Absolute Neuts (auto) 4.8 Absolute Nucleated RBC 0.000 Nucleated RBC % 0.0 Platelet Estimate Adequate % Immature Plt Fraction Hypochromasia 1+ Anisocytosis Ovalocytes 1+ Schistocytes None seen Absolute Retic Percent Retic Immature Retic Fraction Retic Hgb Content PT 15.5 H INR 1.2 APTT 31.5 Sodium Potassium Chloride Carbon Dioxide Anion Gap BUN Creatinine Estim Creat Clear Calc Estimated GFR Glucose POC Capillary Glucose 191 H Calcium Magnesium Iron 63 TIBC 199 L % Saturation 32 Ferritin > 2000.00 H Total Bilirubin AST ALT Alkaline Phosphatase Lactate Dehydrogenase > 1000 H NT-Pro-B Natriuret Pep Total Protein Albumin Blood Type B Positive Antibody Screen Negative Crossmatch See Detail 08/06/24 08/06/24 08/06/24 01:47 05:07 05:53 WBC 6.8 RBC 2.36 L Hgb 7.0 L Hct 23.6 L MCV 100.0 MCH 29.7 MCHC 29.7 L RDW 13.9 Plt Count 186 MPV 13.6 H Immature Gran % (Auto) 1.0 H Neut % (Auto) 79.8 H Lymph % (Auto) 10.6 L Terrell % (Auto) 6.0 Eos % (Auto) 2.5 Baso % (Auto) 0.1 L Lymph # (Auto) 0.72 L Terrell # (Auto) 0.4 Eos # (Auto) 0.2 Baso # (Auto) 0.0 Abs Immat Gran (auto) 0.07 H Absolute Neuts (auto) 5.4 Absolute Nucleated RBC 0.000 Nucleated RBC % 0.0 Platelet Estimate Adequate % Immature Plt Fraction 3.6 Hypochromasia 1+ Anisocytosis 1+ Ovalocytes 1+ Schistocytes Rare Absolute Retic Percent Retic Immature Retic Fraction Retic Hgb Content PT INR APTT > 200.0 H* Sodium 145 Potassium 3.8 Chloride 109 H Carbon Dioxide 24 Anion Gap 12 BUN 223 H Creatinine 7.60 H Estim Creat Clear Calc 8 Estimated GFR 9 L Glucose 236 H POC Capillary Glucose 229 H Calcium 8.4 Magnesium 2.3 Iron TIBC % Saturation Ferritin Total Bilirubin 0.5 AST 1441 H ALT 1109 H Alkaline Phosphatase 304 H Lactate Dehydrogenase NT-Pro-B Natriuret Pep 7360 H Total Protein 6.0 L Albumin 2.6 L Blood Type Antibody Screen Crossmatch
[2024-08-06] MEDS: AZITHROMYCIN 250 MG TABLET 500 MG FEED TUBE (09:29)
[2024-08-06] MEDS: guaiFENesin 12 HR 600 MG TABCR PO ×2 (09:29→21:12)
[2024-08-06] MEDS: amLODIPine BESYLATE 5 MG TABLET FEED TUBE (09:29)
[2024-08-06] MEDS: ATORVASTATIN 20 MG TABLET FEED TUBE (09:29)
[2024-08-06] MEDS: CALCIUM ACETATE 667 MG TABLET FEED TUBE ×3 (09:29→17:14)
[2024-08-06] MEDS: COLLAGENASE OINT 30 GM TUBE 1 APPLIC TOPICAL (09:30)
[2024-08-06 09:46] LABS: Partial Thromboplastin Time 80.4 Seconds (22.3-36.8)
--- NOTE | 2024-08-06 11:30 | PC.NURSE ---
Sevelamer was just received
[2024-08-06 11:44] LABS: Glucose Point of Care 202 mg/dl (65-105)
[2024-08-06 12:00] VITALS: BP 134/82; PULSE 84; RESP 20; TEMP 36.2; O2SAT 96
[2024-08-06] MEDS: SEVELAMER CARBONATE 0.8 GM 1 EACH FEED TUBE ×2 (15:14→17:14)
[2024-08-06 16:00] VITALS: BP 168/64; PULSE 85; RESP 20; TEMP 36.3; O2SAT 100
[2024-08-06 16:35] LABS: Glucose Point of Care 134 mg/dl (65-105)
[2024-08-06 17:53] LABS: Basophils Percent Auto 0.3 % (0.2-1.2); Eosinophils Absolute Auto 0.2 K/mm3 (0-0.3); Eosinophils Percent Auto 1.9 % (0-4.4); Hematocrit 24.1 % (42.0-52.0); Hemoglobin 7.1 g/dL (14.0-18.0); Immature Granulocyte Absolute 0.06 K/mm3 (0.00-0.031); Immature Granulocyte Percent A 0.7 % (0-0.5); Lymphocytes Absolute Auto 0.98 K/mm3 (0.9-3.2); Lymphocytes Percent Auto 10.9 % (18.3-44.2); Mean Corpuscular HGB Conc 29.5 g/dl (32-36); Mean Corpuscular Hemoglobin 29.5 pg (26-34); Mean Platelet Volume 12.8 fl (7.4-10.4); Monocytes Absolute Auto 0.7 K/mm3 (0.1-0.6); Monocytes Percent Auto 7.8 % (2.6-8.5); Neutrophils Percent Auto 78.4 % (45.5-73.1); Platelet Count Result 204 k/mm3 (150-375); Red Blood Count 2.41 M/mm3 (4.6-6.20); Red Cell Distribution Width 13.8 % (11.5-14.5)
[2024-08-06 18:04] LABS: Acetaminophen < 10 ug/mL (10-30)
[2024-08-06 18:06] LABS: INR 1.2; Prothrombin Time 15.4 Seconds (11.1-14.7)
[2024-08-06 18:07] LABS: Partial Thromboplastin Time 29.9 Seconds (22.3-36.8)
[2024-08-06 18:08] LABS: Albumin Level 2.7 g/dL (3.5-5.1); Alkaline Phosphatase 256 U/L (38-126); Anion Gap 9 mmol/L (4-12); Aspartate Amino Transferase 734 U/L (17-59); Bilirubin,Total 0.4 mg/dL (0.2-1.3); Calcium 8.5 mg/dL (8.4-10.2); Carbon Dioxide 24 mmol/L (22-30); Chloride 111 mmol/L (98-107); Estimated CRCL calculation 7 ml/min; Estimated Glomerular Filt Rate 8; Glucose 145 mg/dL (65-110); Sodium 144 mmol/L (137-145)
[2024-08-06 18:22] LABS: Procalcitonin 4.7 ng/mL
[2024-08-06 18:24] LABS: Creatine Kinase 124 U/L (55-170)
[2024-08-06 18:26] LABS: Alanine Aminotransferase 900 U/L (6-50); Blood Urea Nitrogen 229 mg/dL (9-20)
[2024-08-06 18:28] LABS: Ovalocytes 1+; Platelet Estimate Adequate (Adequate); Schistocytes None Seen
[2024-08-06 18:36] LABS: Hepatitis B Surface Antigen Negative (Negative)
[2024-08-06 18:42] LABS: HAV RESULT Negative (Negative); Hepatitis B Core IgM Result Negative (Negative)
[2024-08-06 20:00] VITALS: BP 148/57; PULSE 61; RESP 22; TEMP 36.5; O2SAT 100
[2024-08-06 20:59] LABS: Hepatitis C Virus Antibody Negative (Negative)
[2024-08-06] MEDS: INSULIN GLARGINE (*BKC) 100 UNITS/ML 6 UNITS SUB-Q (21:11)
[2024-08-06] MEDS: PIPERACILLIN/TAZ 2.25G/NS 50ML 2.25 GM/50 ML BAG IVPB (21:15)
[2024-08-06 21:36] LABS: Glucose Point of Care 166 mg/dl (65-105)
[2024-08-06 23:53] LABS: Glucose Point of Care 175 mg/dl (65-105)
[2024-08-07] VITALS: BP 132/56; PULSE 60; RESP 22; TEMP 36.5; O2SAT 100
[2024-08-07 04:00] VITALS: BP 145/57; PULSE 64; RESP 24; TEMP 36; O2SAT 100
[2024-08-07] MEDS: PIPERACILLIN/TAZ 2.25G/NS 50ML 2.25 GM/50 ML BAG IVPB (05:18)
[2024-08-07] MEDS: hydrALAZINE HCL 50 MG TABLET 100 MG FEED TUBE ×3 (05:20→21:19)
[2024-08-07 05:24] LABS: Glucose Point of Care 190 mg/dl (65-105)
--- NOTE | 2024-08-07 07:18 | P.PNIM_ITS ---
Progress Note: A&P Assessment and Plan (1) PEG tube malfunction: Code(s): K94.23 - Gastrostomy malfunction Status: Acute Assessment and Plan: * HX of aspiration * recent placement of peg tube * Dislodged per KUB * GI consulted * Monitor electrolytes replenish as needed and adjust flushes as needed for any hypernatremia * Peg tube placement 08/01 * NA slowly improving with increased free water flush * Increased FWF to 200 ml on 08/03 * Reglan added to help with GI motility, and decrease risk of aspiration, tube feed goal 50 mils per hour for adequate nutrition (2) Renal failure (ARF), acute on chronic: Code(s): N17.9 - Acute kidney failure, unspecified; N18.9 - Chronic kidney disease, unspecified Status: Acute Assessment and Plan: nephrology on board * Acute on Chronic ESRD * Patient is not a candidate for hemodialysis--from Dr Weiner's note on 07/19/24 considering his mental status and considerable morbidity related to starting dialysis especially with the high risk of placing a catheter in general, it would seem that the risks HD catheter placement as well as dialysis far exceeds the benefit, . * Patient's facility is working to on obtaining guardianship and then patient will be made DNR. * Renvela was stopped for some reason, maybe due to displaced g-tube. Continue phosphorus binder now. * Monitor antihypertensive drug therapy. * Avoid NSAIDs/nephrotoxins, follow creatinine/BUN, electrolytes. Renally dose meds Dr Weiner's note from today 08/07/2024 * placement of tunneled HD catheter placement not done previously as he is at high risk for complications * I reiterate what I said on his last hospitalization: * considering his mental status and considerable morbidity related to starting dialysis especially with the high risk of placing a catheter in general, it would seem that the risks HD catheter placement as well as dialysis far exceeds the benefit. I would support the patient transitioning to comfort measures or at least not escalating further therapy... (3) Insulin dependent diabetes mellitus: Status: Chronic Assessment and Plan: * Accu-Cheks A6HR on tube feeds, SSI * Continue Lantus 6hs * Watch for hypoglycemia/hypoglycemic protocol ordered * Blood sugars relatively controlled on current regimen (4) Pneumonia: Code(s): J18.9 - Pneumonia, unspecified organism Status: Acute Assessment and Plan: Chest x-ray 08/04 showed bibasilar lower lobe small pleural effusions. WBC has been trending down since admission. Afebrile and on RA --Repeat chest x-ray today. --Consider repeat CT chest if not improving. Would avoid IV contrast under almost all circumstances since very likely to worsen renal failure and no options for dialysis --On Ceftriaxone --WBC increased to 18.8 with elevation in procalcitonin of 3.8 and elevated CRP --Blood cultures 08/02 NGTD * Broadened to Meropenem to cover for ESBL as urine is cloudy, hull-yellow with sediment present. Added atypical PNA coverage with azithromycin for 5 days. 08/02-08/06 * CT chest shows area of consolidation to lateral, basilar right lower lobe with small bilateral pleural effusions * He sounds more congested today. Will start CPT vest therapy, add Mucinex. * completed IV antibiotics, will complete p.o. antibiotics today (5) Hypertension: Code(s): I10 - Essential (primary) hypertension Status: Chronic Assessment and Plan: improved * patient hypertensive admission * had missed his blood pressure medication * resume hydralazine t.i.d. through tube * added p.r.n. hydralazine for systolic over 180 * Patient still hypertensive systolic's 170's * increased his hydralazine to 100 TID * Added low dose amlodipine 5 mg daily. Patient was on this last admission but medication was stopped due to low blood pressure. * Blood pressure marginally better (6) Dementia: Code(s): F03.90 - Unspecified dementia, unspecified severity, without behavioral disturbance, psychotic disturbance, mood disturbance, and anxiety Status: Acute Assessment and Plan: * Alert and oriented x1 * at baseline (7) Hypernatremia: Code(s): E87.0 - Hyperosmolality and hypernatremia Status: Acute Assessment and Plan: improved * NA 140 07/21/24 up to 152 on admission 07/28 and has been slowly trending down with fluids 152<155>150 but now holding fluids for possible fluid overload * daily bmp * Consult renal okay to stop D5W, continue with free water flushes at 200 every 4 hours (8) Acute UTI: Code(s): N39.0 - Urinary tract infection, site not specified Status: Acute Assessment and Plan: Urine in roth tubing is cloudy yellow-hull with sediment and mucous present. Concerns for possible recurrent UTI. * History of ESBL and increasing WBC despite Rocephin. * UA 08/02 4+ bacteria & 50-100 WBC. Culture growing Ecol. Follow sensitivities * blood cultures 08/02 NGTD * Switched to meropenem 08/02-08/06 * Likely will need midline placed for IV antibiotics at discharge should culture grow ESBL again. Awaiting blood cultures to result. * CT abdomen and pelvis shows bladder wall thickening and haziness to surrounding fat suggestive of cystitis acute or chronic. Has a Roth catheter in place. Change today if not done (9) Respiratory failure: Code(s): J96.90 - Respiratory failure, unspecified, unspecified whether with hypoxia or hypercapnia Status: Acute Assessment and Plan: Still on RA but coarse lungs and mild tachypnea --chest x-ray showed bilateral lower extremity edema --Repeat Chest x-ray --Check NT-proBNP (10) DVT (deep venous thrombosis): Code(s): I82.409 - Acute embolism and thrombosis of unspecified deep veins of unspecified lower extremity Status: Acute Assessment and Plan: left subclavian vein (which is a deep vein) and thrombosis of the right cephalic vein heparin drip per protocol stopped Due to loss of IV access therapeutic Lovenox (11) Elevated LFTs: Code(s): R79.89 - Other specified abnormal findings of blood chemistry Status: Acute Assessment and Plan: acute spike from yesterday abdominal ultrasound pending Plan 73-year-old male with past medical history significant for dementia, , end-stage renal disease not A dialysis candidate due to not being a surgical candidate for placement, Asymptomatic AV dissociation not being a pacemaker placement candidate per Cardiology in October of 2023, comes to the emergency room after his PEG tube was dislodged s/p replaced. Now with venous Doppler showing Right cephalic vein thrombosis and Thrombus within left subclavian vein. Acute liver injury is with LFTs in the thousands. Abdominal ultrasound for elevated LFT show Gallbladder sludge/stones with gallbladder wall thickening. Small right pleural effusion. Small volume ascites. Patient started Zosyn last night. Ethics, GI , nephrology and surgery discussions today about possible change code status as there is little benefits that aggressive care can offer this patient at this time and possibly changing code status to no escalation in care and moving towards futility of care and comfort measures only. Dr Bright for nephrology states considering his mental status and considerable morbidity related to starting dialysis especially with the high risk of placing a catheter in general, it would seem that the risks HD catheter placement as well as dialysis far exceeds the benefit. I would support the patient transitioning to comfort measures or at least not escalating further therapy... [employer] for GI recommendation continue monitoring LFTs and if they do not continued to trend down may consider more detailed imaging such as an MRCP Due to patient not being a surgical candidate, MRCP is unnecessary diagnostic test as the patient is not a candidate for interventions of positive results. T[employer] SAL[employer] CONSULTANT for Surgery Elevated LFTs with evidence of gallbladder wall thickening and sludge on ultrasound. WBC normal. Patient is a poor surgical candidate given his multiple comorbidities. Would recommend to continue conservative management with antibiotics and monitoring. Miladys from Ethics spoke with patient's nursing assistant patient has a court date for 09/01/2024 For fdc issue not having a POA and not being able to make his own decisions. Patient currently is a full code okay for CPR and intubation. I (Cierra MENJIVAR) discussed over the phone with Dr. Bernal and Dr Solomon about patient's case being futile, both verbally in agreement over the phone that if IV access is lost, care should not be escalated to a central line i.e. femoral line as the patient does not qualify for a midline or a subclavian due to bilateral upper extremity DVTs. Time Spent With Patient Time: Includes review of chart, time spent family, consulting teams and nursing. Vital signs were reviewed and they are stable. His medications will be reviewed and resumed as appropriate. Findings and treatment plan were discussed with the patient. Questions were solicited and answered to satisfaction. Care plan was discussed with nursing. over 75 minutes of care Subjective Date/time seen: 08/07/24 07:18 Interval history: 73-year-old male with past medical history significant for dementia, patient is oriented times once at times, end-stage renal disease not on dialysis, Comes to the emergency room after his PEG tube was dislodged s/p replaced. Abdominal ultrasound for elevated LFT show Gallbladder sludge/stones with gallbladder wall thickening. Small right pleural effusion. Small volume ascites. Patient started Zosyn last night. Ethics, GI and surgery consulted today. Dr Bright for nephrology states considering his mental status and considerable morbidity related to starting dialysis especially with the high risk of placing a catheter in general, it would seem that the risks HD catheter placement as well as dialysis far exceeds the benefit. I would support the patient transitioning to comfort measures or at least not escalating further therapy... [employer] SAL[employer] CONSULTANT for GI recommendation * continue monitoring LFTs and if they do not continued to trend down may consider more detailed imaging such as an MRCP Due to patient not being a surgical candidate MRCP is unnecessary diagnostic test as the patient is not a candidate for intervention ovaries. T[employer] SALES CONSULTANT for Surgery Elevated LFTs with evidence of gallbladder wall thickening and sludge on ultrasound. WBC normal. Patient is a poor surgical candidate given his multiple comorbidities. Would recommend to continue conservative management with antibiotics and monitoring. Miladys from Ethics spoke with patient's nursing assistant patient has a court date for 09/01/2024 For fdc issue not having a POA and not being able to make his own decisions. Patient currently is a full code okay for CPR and intubation. I discussed over the phone with Dr. Bernal and Dr Solomon about patient's case being futile, both verbally in agreement over the phone that if IV access is lost, care should not be escalated to a central line i.e. femoral line as the patient does not qualify for a midline or a subclavian. Review of Systems Review of Systems: ROS unobtainable: Yes unobtainable due to medical condition and unobtainable due to mental status ( Advanced dementia) Exam Narrative: General: overall appears comfortable but mildly tachypneic/shallow breathing, in no acute distress, nonverbal but awake and responsive Respiratory: mild tachypnea, lungs are coarse without wheezing or rhonchi. Cardiovascular: Rate and rhythm regular, normal s1s2, no murmur Abdomen: Soft, round, non-tender, active bowel sounds, g-tube with abdominal binder in place Extremities: No cyanosis, dependent pitting edema to bilateral upper extremities, L>R, no clubbing. Pulses 2/2 Neuro: Alert and non-verbal, moves all extremities with generalized weakness. Skin: Warm, dry, intact. Left gluteus with pressure related ulcer with eschar wound bed. Const: General: comfortable, no acute distress, well developed, alert, awake, ill appearing chronically and average body habitus Nutritional Appearance: average body habitus HENMT: Head: normal to inspection, normocephalic and atraumatic Ears: hearing grossly normal bilaterally Face/Nose/Sinus: normal facial exam Face and sinus: normal facial exam Eyes: General: appearance normal, both eyes and all related structures Pupils: Equal, round and reactive pupils present EOM: EOMs intact bilaterally Neck: Neck: full ROM, no lymphadenopathy and no JVD Thyroid: thyroid normal Lymphatic: no lymphadenopathy noted Resp: Effort & Inspection: normal respiratory effort and able to speak in complete sentences Auscultation: clear to auscultation bilaterally Cardio: Jugular venous distension: no JVD Rate: regular rate Rhythm: regular rhythm Heart sounds: S1 normal heart sound present and S2 normal heart sound present : General: Yes deferred Skin: Rashes: no rashes Other: patient has some abrasions Neuro: General: no focal motor deficits, CN's II-XI intact bilaterally and Unable to assess gait Cranial nerves: Yes CN's II-XII intact bilaterally and Yes Equal, round and reactive pupils present Cognition (Neuro): abnormal cognition ( dementia) Speech: normal speech Gait exam (Neuro): Unable to assess gait Motor exam (neuro): 5/5 motor strength present throughout Extrem: General: normal to inspection, full ROM, no joint enlargement and no pedal edema Objective Data Vital Signs Vital Signs: Vital Signs - 24 hr 08/06/24 08:00 08/06/24 12:00 08/06/24 16:00 Temperature 97.2 F L 97.2 F L 97.4 F L Pulse Rate 63 84 85 Respiratory Rate 20 20 20 Blood Pressure 129/51 L 134/82 168/64 H Pulse Oximetry 100 96 100 08/06/24 20:00 08/07/24 00:00 08/07/24 04:00 Temperature 97.7 F 97.7 F 96.8 F L Pulse Rate 61 60 64 Respiratory Rate 22 H 22 H 24 H Blood Pressure 148/57 H 132/56 L 145/57 H Pulse Oximetry 100 100 100 Intake/Output Intake/Output: Intake & Output 08/04/24 08/05/24 08/06/24 08/07/24 23:59 23:59 23:59 23:59 Intake Total 100 246.9 Output Total 1050 825 750 350 Balance -950 -825 -503.1 -350 Meds/Results Medications: Active Medications Generic Name Dose Route Start Last Admin Trade Name Freq PRN Reason Stop Dose Admin Acetaminophen 650 mg 07/30/24 10:37 Acetaminophen 650 Mg Suppository RECTAL Q6H PRN Mild Pain (1-3) or Fever Hydrocodone Bitart/Acetaminophen 1 tab 07/30/24 14:29 Hydrocodone/Acetaminophen (*Crx) 5-325 Mg Tablet FEED TUBE Q6H PRN Pain Rated 4-6 Amlodipine Besylate 5 mg 08/04/24 09:00 08/06/24 09:29 Amlodipine Besylate 5 Mg Tablet FEED TUBE 5 mg DAILY URIAH Administration Atorvastatin Calcium 20 mg 07/30/24 09:00 08/06/24 09:29 Atorvastatin 20 Mg Tablet FEED TUBE 20 mg DAILY URIAH Administration Calcium Acetate 667 mg 08/03/24 13:00 08/06/24 17:14 Calcium Acetate 667 Mg Tablet FEED TUBE 667 mg TID URIAH Administration Collagenase 1 applic 07/31/24 10:45 08/06/24 09:30 Collagenase Oint 30 Gm Tube TOPICAL 1 applic QAM URIAH Administration Dextrose 12.5 gm 07/29/24 11:33 Dextrose 50% 25 Gm/50 Ml Syringe IV PUSH PRN PRN Hypoglycemia Protocol Enoxaparin Sodium 70 mg 08/07/24 09:00 Enoxaparin 80 Mg/0.8 Ml Syringe SUB-Q DAILY URIAH Glucagon 1 mg 07/29/24 11:33 Glucagon For Inj 1 Mg Vial IM PRN PRN Hypoglycemia Protocol Glucose 15 gm 07/29/24 11:33 Glucose Oral Gel 15 Gm Of Glucse In 37.5 Gm Tube PO PRN PRN Hypoglycemia Protocol Guaifenesin 600 mg 08/03/24 21:00 08/06/24 21:12 Guaifenesin 12 Hr 600 Mg Tabcr PO 600 mg Q12HR URIAH Administration Hydralazine HCl 100 mg 08/01/24 14:00 08/07/24 05:20 Hydralazine Hcl 50 Mg Tablet FEED TUBE 100 mg Q8HR URIAH Administration Dextrose 1,000 mls @ 100 mls/hr 07/29/24 11:33 Dextrose 5% 1,000 Ml IVPB PRN PRN Hypoglycemia Protocol Piperacillin Sod/Tazobactam Sod 2.25 gm in 50 mls @ 100 mls/hr 08/06/24 22:00 08/07/24 05:18 Zosyn 2.25 Gm/Ns 50 Ml IVPB 100 mls/hr Q8H URIAH Administration Insulin Aspart 2 - 5 units 07/29/24 12:00 08/07/24 05:22 Insulin Aspart (*Bkc) 100 Units/Ml SUB-Q Not Given Q6HR [facility] Protocol Insulin Glargine 6 units 07/30/24 21:00 08/06/24 21:11 Insulin Glargine (*Bkc) 100 Units/Ml SUB-Q 6 units HS URIAH Administration Morphine Sulfate 2 mg 07/30/24 14:28 07/31/24 17:25 Morphine Sulfate (*Crx) 2 Mg/Ml Inj IV PUSH 2 mg Q4H PRN Administration Pain Rated 7-10 Sevelamer Carbonate 1 each 08/02/24 08:00 08/06/24 17:14 0.8gm Powder Packet FEED TUBE 09/01/24 07:59 1 each TIDWM URIAH Administration Ondansetron HCl 4 mg 07/30/24 10:37 Ondansetron Inj 4 Mg/2 Ml Vial IV PUSH Q6H PRN Nausea And Vomiting Perflutren Lipid Microsphere 0 ml 08/05/24 11:08 Perflutren Lipid Microspheres 1.5 Ml Vial Diluted To 10 Ml Total Volume IV PUSH 08/08/24 11:08 ONCE PRN adequate visualization Protocol Radiology Results: ITS Impressions Abdomen X-Ray 07/30/24 07:14 IMPRESSION: 1. Nasogastric tube in stomach. 2. Persistent mild opacities at the right lung base which could represent atelectasis or pneumonia and likely tiny bilateral pleural effusions. Chest/Abdomen/Pelvis CT 08/02/24 17:17 IMPRESSION: 1. Mild emphysema with small bilateral pleural effusions and region of consolidation at the lateral basilar right lower lobe which could represent atelectasis or pneumonia. 2. Cardiomegaly with prominent left ventricular enlargement. 3. Multinodular goiter. Consider thyroid ultrasound for risk stratification. 4. Roth catheter in the bladder with wall thickening and slight haziness to the surrounding fat suggestive of cystitis either acute or chronic. Correlate with urinalysis. 5. Cholelithiasis. 6. Large right hydrocele. 7. Nonspecific mild diffuse edema of the intra-abdominal/pelvic and body wall fat. Chest X-Ray 08/05/24 11:07 IMPRESSION: Mild infiltrate or atelectasis at the lung bases, stable or mildly improved since 08/03/2024 Venous Doppler Study 08/05/24 12:50 IMPRESSION: Right cephalic vein thrombosis Thrombus within left subclavian vein Abdomen Ultrasound 08/06/24 14:21 IMPRESSION: Gallbladder sludge/stones with gallbladder wall thickening. Small right pleural effusion. Small volume ascites. Labs Labs: Laboratory Results - last 24 hr 1208/06/24 08/06/24 05:53 09:23 11:31 WBC 6.8 RBC 2.36 L Hgb 7.0 L Hct 23.6 L MCV 100.0 MCH 29.7 MCHC 29.7 L RDW 13.9 Plt Count 186 MPV 13.6 H Immature Gran % (Auto) 1.0 H Neut % (Auto) 79.8 H Lymph % (Auto) 10.6 L [place] % (Auto) 6.0 Eos % (Auto) 2.5 Baso % (Auto) 0.1 L Lymph # (Auto) 0.72 L [place] # (Auto) 0.4 Eos # (Auto) 0.2 Baso # (Auto) 0.0 Abs Immat Gran (auto) 0.07 H Absolute Neuts (auto) 5.4 Absolute Nucleated RBC 0.000 Nucleated RBC % 0.0 Platelet Estimate Adequate % Immature Plt Fraction 3.6 Hypochromasia 1+ Anisocytosis 1+ Ovalocytes 1+ Schistocytes Rare PT INR APTT 80.4 H Sodium 145 Potassium 3.8 Chloride 109 H Carbon Dioxide 24 Anion Gap 12 BUN 223 H Creatinine 7.60 H Estim Creat Clear Calc 8 Estimated GFR 9 L Glucose 236 H POC Capillary Glucose 202 H Calcium 8.4 Magnesium 2.3 Total Bilirubin 0.5 AST 1441 H ALT 1109 H Alkaline Phosphatase 304 H Total Creatine Kinase Total Protein 6.0 L Albumin 2.6 L Procalcitonin Acetaminophen Hepatitis A IgM Ab Hep Bs Antigen Hep B Core IgM Ab Hepatitis C Ab Screen 08/06/24 08/06/24 08/06/24 16:24 17:47 21:09 WBC 9.0 RBC 2.41 L Hgb 7.1 L Hct 24.1 L MCV 100.0 MCH 29.5 MCHC 29.5 L RDW 13.8 Plt Count 204 MPV 12.8 H Immature Gran % (Auto) 0.7 H Neut % (Auto) 78.4 H Lymph % (Auto) 10.9 L [place] % (Auto) 7.8 Eos % (Auto) 1.9 Baso % (Auto) 0.3 Lymph # (Auto) 0.98 [place] # (Auto) 0.7 H Eos # (Auto) 0.2 Baso # (Auto) 0.0 Abs Immat Gran (auto) 0.06 H Absolute Neuts (auto) 7.0 H Absolute Nucleated RBC 0.000 Nucleated RBC % 0.0 Platelet Estimate Adequate % Immature Plt Fraction Hypochromasia Anisocytosis Ovalocytes 1+ Schistocytes None seen PT 15.4 H INR 1.2 APTT 29.9 Sodium 144 Potassium 4.0 Chloride 111 H Carbon Dioxide 24 Anion Gap 9 BUN 229 H Creatinine 8.00 H Estim Creat Clear Calc 7 Estimated GFR 8 L Glucose 145 H POC Capillary Glucose 134 H 166 H Calcium 8.5 Magnesium Total Bilirubin 0.4 AST 734 H ALT 900 H Alkaline Phosphatase 256 H Total Creatine Kinase 124 Total Protein 6.0 L Albumin 2.7 L Procalcitonin 4.7 Acetaminophen < 10 L Hepatitis A IgM Ab Negative Hep Bs Antigen Negative Hep B Core IgM Ab Negative Hepatitis C Ab Screen Negative 08/06/24 08/07/24 23:47 05:17 WBC RBC Hgb Hct MCV MCH MCHC RDW Plt Count MPV Immature Gran % (Auto) Neut % (Auto) Lymph % (Auto) [place] % (Auto) Eos % (Auto) Baso % (Auto) Lymph # (Auto) [place] # (Auto) Eos # (Auto) Baso # (Auto) Abs Immat Gran (auto) Absolute Neuts (auto) Absolute Nucleated RBC Nucleated RBC % Platelet Estimate % Immature Plt Fraction Hypochromasia Anisocytosis Ovalocytes Schistocytes PT INR APTT Sodium Potassium Chloride Carbon Dioxide Anion Gap BUN Creatinine Estim Creat Clear Calc Estimated GFR Glucose POC Capillary Glucose 175 H 190 H Calcium Magnesium Total Bilirubin AST ALT Alkaline Phosphatase Total Creatine Kinase Total Protein Albumin Procalcitonin Acetaminophen Hepatitis A IgM Ab Hep Bs Antigen Hep B Core IgM Ab Hepatitis C Ab Screen Quality VTE Prophylaxis VTE prophylaxis: mechanical ordered and pharmacologic ordered
[2024-08-07 08:00] VITALS: BP 147/56; PULSE 63; RESP 22; TEMP 36.6; O2SAT 100
[2024-08-07 08:21] LABS: Hematocrit 23.5 % (42.0-52.0); Mean Corpuscular HGB Conc 29.8 g/dl (32-36); Mean Corpuscular Hemoglobin 29.2 pg (26-34); Mean Corpuscular Volume 97.9 fl (80-100); Mean Platelet Volume 12.8 fl (7.4-10.4); Platelet Count Result 203 k/mm3 (150-375); Red Cell Distribution Width 13.5 % (11.5-14.5); White Blood Count 8.4 K/mm3 (4.5-10.0)
--- NOTE | 2024-08-07 09:08 | P.PNNP_ITS ---
Progress Note: A&P Assessment and Plan (1) Chronic kidney disease, stage 5: Code(s): N18.5 - Chronic kidney disease, stage 5 Status: Chronic Assessment and Plan: * worsening progression as noted by previous hospitalizations and labs * presumably due to hypertension and diabetes as well as age with repeated bouts of LINDSEY/ARF contributing * previous evaluation on last hospitalization noted * evaluation to date noted... * placement of tunneled HD catheter placement not done previously as he is at high risk for complications * I reiterate what I said on his last hospitalization: * considering his mental status and considerable morbidity related to starting dialysis especially with the high risk of placing a catheter in general, it would seem that the risks HD catheter placement as well as dialysis far exceeds the benefit. I would support the patient transitioning to comfort measures or at least not escalating further therapy... (2) Hypernatremia: Code(s): E87.0 - Hyperosmolality and hypernatremia Status: Acute Assessment and Plan: * due to PEG tube malfunction * improvement noted * s/p D5W IVFs * resumed on free water tube flushes * follow trend of sodium (3) PEG tube malfunction: Code(s): K94.23 - Gastrostomy malfunction Status: Acute Assessment and Plan: * as noted on admission by imaging and history * s/p replacement by GI on 08/01 * known history of aspiration * resumed on tube feeds and free water flushes (4) DVT (deep venous thrombosis): Code(s): I82.409 - Acute embolism and thrombosis of unspecified deep veins of unspecified lower extremity Status: Acute Assessment and Plan: * noted DVTs in upper extremities by doppler * on heparin gtt * however, IV access is now an issue... (5) Acute UTI: Code(s): N39.0 - Urinary tract infection, site not specified Status: Acute Assessment and Plan: * complicated by chronic roth catheter * admission UA quite suggestive * follow culture data: * blood culture negative * urine culture with E.coli * on antibiotics (6) Elevated LFTs: Code(s): R79.89 - Other specified abnormal findings of blood chemistry Status: Acute Assessment and Plan: * noted in the last 24 - 48 hours * abdominal ultrasound results noted * Surgery and GI consulted (7) Anemia: Code(s): D64.9 - Anemia, unspecified Status: Acute Assessment and Plan: * due to advanced CKD * consider Retacrit but may not be effective * follow trend of H/H (8) Hypertension: Code(s): I10 - Essential (primary) hypertension Status: Chronic Assessment and Plan: * reasonable control * follow trend of hemodynamics (9) Insulin dependent diabetes mellitus: Status: Chronic Assessment and Plan: * follow accu-cheks * glycemic control per hospitalists The patient is overall clinical status continues to deteriorate from a medical standpoint as noted by his above acute and chronic issues. I suspect we are getting to a point of futility of care as we are quite limited by what procedures/interventions can be done given his high risk status as well as the fact that his overall long-term prognosis is quite poor given his chronic dementia, bed-bound status, recurrent infections...etc. As I have mentioned already, it may be time to re-evaluate the goals of therapy and plan of care as I do not think ongoing therapy as outlined above will make a significant difference in his quality of life as it is quite poor at baseline. Discussed situation/case with Cierra Mcallister APRN Will continue to follow. Subjective Date/time seen: 08/07/24 09:08 Interval history: Follow-up for chronic kidney disease and hyponatremia. Chart reviewed -- assuming care from Dr. Zhang; renal function/creatinine about the same if not marginally better with relative stability in sodium level as well; mental status appears about the same as well; noted deterioration in LFTs with abdominal ultrasound findings in the last 24 hours -- started on antibiotics yesterday; no apparent distress noted on my visit. Exam Narrative: General: frail appearing male in NAD Heart: normal S1 and S2; no rub Lungs: clear anteriorly Abdomen: soft, nontender, nondistended, positive bowel sounds Extremities: trace edema; contracted posture Skin: warm and dry Objective Data Vital Signs Vital Signs: Vital Signs Temp Pulse Resp BP Pulse Ox 08/07/24 08:00 97.9 F 63 22 H 147/56 H 100 08/07/24 04:00 96.8 F L 64 24 H 145/57 H 100 08/07/24 00:00 97.7 F 60 22 H 132/56 L 100 08/06/24 20:00 97.7 F 61 22 H 148/57 H 100 08/06/24 16:00 97.4 F L 85 20 168/64 H 100 08/06/24 12:00 97.2 F L 84 20 134/82 96 Intake/Output Intake/Output: Intake & Output 08/04/24 08/05/24 08/06/24 08/07/24 23:59 23:59 23:59 23:59 Intake Total 100 246.9 Output Total 1050 825 750 350 Balance -950 -825 -503.1 -350 Meds/Results Medications: Active Medications Generic Name Dose Route Start Last Admin Trade Name Freq PRN Reason Stop Dose Admin Acetaminophen 650 mg 07/30/24 10:37 Acetaminophen 650 Mg Suppository RECTAL Q6H PRN Mild Pain (1-3) or Fever Hydrocodone Bitart/Acetaminophen 1 tab 07/30/24 14:29 Hydrocodone/Acetaminophen (*Crx) 5-325 Mg Tablet FEED TUBE Q6H PRN Pain Rated 4-6 Amlodipine Besylate 5 mg 08/04/24 09:00 08/07/24 09:15 Amlodipine Besylate 5 Mg Tablet FEED TUBE 5 mg DAILY URIAH Administration Atorvastatin Calcium 20 mg 07/30/24 09:00 08/07/24 09:15 Atorvastatin 20 Mg Tablet FEED TUBE 20 mg DAILY URIAH Administration Calcium Acetate 667 mg 08/03/24 13:00 08/07/24 09:15 Calcium Acetate 667 Mg Tablet FEED TUBE 667 mg TID URIAH Administration Collagenase 1 applic 07/31/24 10:45 08/06/24 09:30 Collagenase Oint 30 Gm Tube TOPICAL 1 applic QAM URIAH Administration Dextrose 12.5 gm 07/29/24 11:33 Dextrose 50% 25 Gm/50 Ml Syringe IV PUSH PRN PRN Hypoglycemia Protocol Enoxaparin Sodium 70 mg 08/07/24 09:00 08/07/24 09:16 Enoxaparin 80 Mg/0.8 Ml Syringe SUB-Q 70 mg DAILY URIAH Administration Glucagon 1 mg 07/29/24 11:33 Glucagon For Inj 1 Mg Vial IM PRN PRN Hypoglycemia Protocol Glucose 15 gm 07/29/24 11:33 Glucose Oral Gel 15 Gm Of Glucse In 37.5 Gm Tube PO PRN PRN Hypoglycemia Protocol Guaifenesin 600 mg 08/03/24 21:00 08/07/24 09:15 Guaifenesin 12 Hr 600 Mg Tabcr PO 600 mg Q12HR URIAH Administration Hydralazine HCl 100 mg 08/01/24 14:00 08/07/24 05:20 Hydralazine Hcl 50 Mg Tablet FEED TUBE 100 mg Q8HR URIAH Administration Dextrose 1,000 mls @ 100 mls/hr 07/29/24 11:33 Dextrose 5% 1,000 Ml IVPB PRN PRN Hypoglycemia Protocol Piperacillin Sod/Tazobactam Sod 2.25 gm in 50 mls @ 100 mls/hr 08/06/24 22:00 08/07/24 05:18 Zosyn 2.25 Gm/Ns 50 Ml IVPB 100 mls/hr Q8H URIAH Administration Insulin Aspart 2 - 5 units 07/29/24 12:00 08/07/24 05:22 Insulin Aspart (*Bkc) 100 Units/Ml SUB-Q Not Given Q6HR [facility] Protocol Insulin Glargine 6 units 07/30/24 21:00 08/06/24 21:11 Insulin Glargine (*Bkc) 100 Units/Ml SUB-Q 6 units HS URIAH Administration Morphine Sulfate 2 mg 07/30/24 14:28 07/31/24 17:25 Morphine Sulfate (*Crx) 2 Mg/Ml Inj IV PUSH 2 mg Q4H PRN Administration Pain Rated 7-10 Sevelamer Carbonate 1 each 08/02/24 08:00 08/07/24 09:15 0.8gm Powder Packet FEED TUBE 09/01/24 07:59 1 each TIDWM URIAH Administration Ondansetron HCl 4 mg 07/30/24 10:37 Ondansetron Inj 4 Mg/2 Ml Vial IV PUSH Q6H PRN Nausea And Vomiting Perflutren Lipid Microsphere 0 ml 08/05/24 11:08 Perflutren Lipid Microspheres 1.5 Ml Vial Diluted To 10 Ml Total Volume IV PUSH 08/08/24 11:08 ONCE PRN adequate visualization Protocol Radiology Results: ITS Impressions Abdomen X-Ray 07/30/24 07:14 IMPRESSION: 1. Nasogastric tube in stomach. 2. Persistent mild opacities at the right lung base which could represent atelectasis or pneumonia and likely tiny bilateral pleural effusions. Chest/Abdomen/Pelvis CT 08/02/24 17:17 IMPRESSION: 1. Mild emphysema with small bilateral pleural effusions and region of consolidation at the lateral basilar right lower lobe which could represent atelectasis or pneumonia. 2. Cardiomegaly with prominent left ventricular enlargement. 3. Multinodular goiter. Consider thyroid ultrasound for risk stratification. 4. Roth catheter in the bladder with wall thickening and slight haziness to the surrounding fat suggestive of cystitis either acute or chronic. Correlate with urinalysis. 5. Cholelithiasis. 6. Large right hydrocele. 7. Nonspecific mild diffuse edema of the intra-abdominal/pelvic and body wall fat. Chest X-Ray 08/05/24 11:07 IMPRESSION: Mild infiltrate or atelectasis at the lung bases, stable or mildly improved since 08/03/2024 Venous Doppler Study 08/05/24 12:50 IMPRESSION: Right cephalic vein thrombosis Thrombus within left subclavian vein Abdomen Ultrasound 08/06/24 14:21 IMPRESSION: Gallbladder sludge/stones with gallbladder wall thickening. Small right pleural effusion. Small volume ascites. Labs Labs: Laboratory Tests 08/07/24 08:05 08/07/24 08:05 Calcium 8.4 Magnesium 2.2 Total Bilirubin 0.5 AST 283 H ALT 566 H Alkaline Phosphatase 222 H Total Creatine Kinase 77 Total Protein 6.0 L Albumin 2.5 L
[2024-08-07] MEDS: amLODIPine BESYLATE 5 MG TABLET FEED TUBE (09:15)
[2024-08-07] MEDS: CALCIUM ACETATE 667 MG TABLET FEED TUBE ×3 (09:15→16:52)
[2024-08-07] MEDS: guaiFENesin 12 HR 600 MG TABCR PO ×2 (09:15→21:19)
[2024-08-07] MEDS: SEVELAMER CARBONATE 0.8 GM 1 EACH FEED TUBE ×3 (09:15→16:52)
[2024-08-07] MEDS: ATORVASTATIN 20 MG TABLET FEED TUBE (09:15)
[2024-08-07] MEDS: ENOXAPARIN 80 MG/0.8 ML SYRINGE 70 MG SUB-Q (09:16)
[2024-08-07 09:19] LABS: Blood Urea Nitrogen 236 mg/dL (9-20)
[2024-08-07 09:27] LABS: Alanine Aminotransferase 566 U/L (6-50); Albumin Level 2.5 g/dL (3.5-5.1); Alkaline Phosphatase 222 U/L (38-126); Anion Gap 12 mmol/L (4-12); Aspartate Amino Transferase 283 U/L (17-59); Bilirubin,Total 0.5 mg/dL (0.2-1.3); Calcium 8.4 mg/dL (8.4-10.2); Carbon Dioxide 24 mmol/L (22-30); Chloride 108 mmol/L (98-107); Creatine Kinase 77 U/L (55-170); Estimated CRCL calculation 7 ml/min; Estimated Glomerular Filt Rate 8; Glucose 211 mg/dL (65-110); Magnesium 2.2 mg/dL (1.6-2.3); Potassium 3.9 mmol/L (3.4-5.0); Sodium 144 mmol/L (137-145)
--- NOTE | 2024-08-07 11:22 | P.CONGI_ITS ---
Assessment and Plan Assessment and plan (1) Elevated LFTs: Code(s): R79.89 - Other specified abnormal findings of blood chemistry <Tamiko Mcadams APRN - Last Filed: 08/07/24 12:32> Status: Acute <Tamiko Mcadams APRN - Last Filed: 08/07/24 12:32> (2) Anemia: Qualifiers: Anemia type: unspecified type Qualified Code(s): D64.9 - Anemia, unspecified <Tamiko Mcadams APRN - Last Filed: 08/07/24 12:32> Code(s): D64.9 - Anemia, unspecified <Tamiko Mcadams, CLINICAL SYSTEMS ANALYST - Last Filed: 08/07/24 12:32> Status: Acute <Tamiko Mcadams APRN - Last Filed: 08/07/24 12:32> (3) Chronic kidney disease, stage IV (severe): Code(s): N18.4 - Chronic kidney disease, stage 4 (severe) <Tamiko Mcadams, CLINICAL SYSTEMS ANALYST - Last Filed: 08/07/24 12:32> Status: Chronic <Tamiko Mcadams, CLINICAL SYSTEMS ANALYST - Last Filed: 08/07/24 12:32> Assessment and Plan: 1. Elevated LFT's/cholecystitis: LFT's were normal on 08/05 then acute elevation of LFT's that are no trending down. Bilirubin as remained normal. AST 33-->1441-->734-->283, ALT 25-->1109-->900-->566, Alk Phos 121-->304-->256-->222. Normal appearing liver on imaging no signs on biliary ductal dilation on imaging. Ultrasound showed gallbladder sludge/ stones with gallbladder wall thickening. Hepatitis panel negative. Unclear if patient may have passed a gallstone vs drug induced liver injury secondary to antibiotics given this admission vs ischemic. Patient with ERSD stage 5 and is not a candidate for hemodialysis given multiple comorbidities, unclear if this may be contributing to elevated alk-phos. * continue monitoring LFTs and if they do not continued to trend down may consider more detailed imaging such as an MRCP * Surgery on patient case but he is likely not a surgical candidate * Care with nephrotoxic medications 2. Anemia: Patient with chronic anemia and end-stage renal disease. Likely Anemia of chronic disease. Labs today show HGB 7, HCT 24, MCV 100, platelets 204. No signs of active GI bleeding. * Primary care team to continue monitoring and transfuse as needed to keep HGB > 7 3. PEG tube/ dysphagia/malnutrition: Peg tube placed 08/01/2024. Patient receiving Nepro 1.8 faina at 50 ml/hr. PEG site looks good without signs of infection or irritation. * Keep abdominal binder in place to protect PEG tube * Continue tube feedings Thank you very much for allowing me to share in the care of this very complex patient. This report may have been done utilizing a voice recognition system. Attempts have been made to correct errors. However, there may be uncorrected grammatical, spelling, and recognition errors present. <Tamiko Mcadams APRN - Last Filed: 08/07/24 12:32> GI Consult Note Consult date/time: 08/07/24 11:22 <Tamiko Mcadams APRN - Last Filed: 08/07/24 12:32> Reason for consult: Elevated LFT's <Tamiko Mcadams APRN - Last Filed: 08/07/24 12:32> HPI: This is a 73-year-old male with history of AFib, anorexia, dysphagia with aspiration, dementia, HTN, diabetes, peg tube, and end-stage renal disease. Patient presented to the ER 07/28/2024 for PEG tube complications. GI consulted for elevated LFT's. Patient was recently admitted 07/02 through Jul 21 during which time the pre[place] ent had a PEG tube placed 07/12/2024 due to malnutrition and dysphagia. Patient presented back to the emergency room July 28 after his PEG tube was accidentally removed. Patient had a 20 Lithuanian PEG tube replaced 08/01/2024. Patient is nonverbal and unable to provide any subjective information. ENDOSCOPY HISTORY: EGD/PEG placement: 08/01/[address] De La Rosa for peg tube malfunction 20 Lithuanian PEG tube placed COLONOSCOPY: Colonoscopy Hx unknown LABS AND STOOL STUDIES: IMAGING: Abdominal Ultrasound 08/06/2024 FINDINGS: The visualized portions of the pancreas are normal. The liver is normal with normal echogenicity and echotexture. No surface nodularity. 5 mm echogenic shadowing focus in the left liver lobe, likely granulomatous or dystrophic calcification. Normal hepatopetal flow in the main portal vein. Gallbladder wall measures up to 4 mm. Dependent intraluminal echogenicities may represent sludge and/or gallstones The common bile duct measures 3 mm. There was no sonographic Hi sign, although this may be confounded by the concurrent use of pain medication. Small volume pleural effusion. Small volume fluid in the right upper quadrant IMPRESSION: Gallbladder sludge/stones with gallbladder wall thickening. <Tamiko Mcadams, CLINICAL SYSTEMS ANALYST - Last Filed: 08/07/24 12:32> I have reviewed our nurse practitioner's note, examined the patient and pertinent laboratory data. We have discussed the plan extensively and agreed with was stated in the note. The patient has multiple medical problems including an extensive cardiac history, hypertension end-stage renal disease and history of atrial fibrillation. The patient had a very brief and transient but marked elevation of AST and ALT, undoubtedly caused by subclinical hemodynamic changes that reflect in liver hypoperfusion, even in the absence of obvious shock. However, these changes seem to be trending down. I do not consider a workup is needed for this purpose since clinically and biochemically this seems to be the case. Will sign off for the moment and will be glad to re-evaluate the patient if needed. This is a 73-year-old male with history of AFib, anorexia, dysphagia with aspiration, dementia, HTN, diabetes, peg tube, and end-stage renal disease. Patient presented to the ER 07/28/2024 for PEG tube complications. GI consulted for elevated LFT's. Patient was recently admitted 07/02 through Jul 21 during which time the patient had a PEG tube placed 07/12/2024 due to malnutrition and dysphagia. Patient presented back to the emergency room July 28 after his PEG tube was accidentally removed. Patient had a 20 Lithuanian PEG tube replaced 08/01/2024. Patient is nonverbal and unable to provide any subjective information. ENDOSCOPY HISTORY: EGD/PEG placement: 08/01/[address] De La Rosa for peg tube malfunction 20 Lithuanian PEG tube placed COLONOSCOPY: Colonoscopy Hx unknown LABS AND STOOL STUDIES: IMAGING: Abdominal Ultrasound 08/06/2024 FINDINGS: The visualized portions of the pancreas are normal. The liver is normal with normal echogenicity and echotexture. No surface nodularity. 5 mm echogenic shadowing focus in the left liver lobe, likely granulomatous or dystrophic calcification. Normal hepatopetal flow in the main portal vein. Gallbladder wall measures up to 4 mm. Dependent intraluminal echogenicities may represent sludge and/or gallstones The common bile duct measures 3 mm. There was no sonographic Hi sign, although this may be confounded by the concurrent use of pain medication. Small volume pleural effusion. Small volume fluid in the right upper quadrant IMPRESSION: Gallbladder sludge/stones with gallbladder wall thickening. <Donald De La Rosa MD - Last Filed: 08/07/24 18:55> Review of Systems Review of Systems: ROS unobtainable: Yes unobtainable due to medical condition and unobtainable due to mental status <Tamiko Mcadams APRN - Last Filed: 08/07/24 12:32> [facility] Past Medical History Medical History: Medical History A-fib Anorexia Aspiration of food Dementia Hypertension Insulin dependent diabetes mellitus <Tamiko Mcadams APRN - Last Filed: 08/07/24 12:32> Family History Family History: Family History Other Unknown family medical history <Tamiko Mcadams APRN - Last Filed: 08/07/24 12:32> Social History Social History: Social History Smoking status: Unknown if ever smoked Second hand tobacco smoke exposure: No Alcohol intake: unknown Substance use: unknown Substance use type: does not use Do You Feel Safe in your Home?: No Lack of Transportation: No Lack of Food: Never True Current Housing: I Have Housing Concerned About Future Housing: No Difficulty Paying Gas/Electric Bills: No Difficulty Paying for Meds: No Currently Unemployed: No Education: Don't Know Difficulty w/ Childcare or Family Care: No Spiritual care concerns: No <Tamiko Mcadams APRN - Last Filed: 08/07/24 12:32> Meds Home Medications and Allergies Home medications: Home Medications Medication Instructions Recorded Confirmed Type glucagon 1 mg solution for 1 mg IM PRN PRN Hypoglycemia 04/28/23 07/29/24 History injection (Glucagon Emergency Kit) insulin regular human 100 unit/mL See Rx Instructions .Route .COMPLEX 07/02/24 07/29/24 History injection solution (Humulin R Regular U-100 Insulin) acetaminophen 325 mg tablet 650 mg feeding tube Q6H PRN Pain 07/21/24 07/29/24 Rx (Scale Score 1-3) #30 tabs atorvastatin 20 mg tablet 20 mg feeding tube DAILY #30 tabs 07/21/24 07/29/24 Rx hydralazine 50 mg tablet 50 mg feeding tube TID #90 tabs 07/21/24 07/29/24 Rx insulin glargine 100 unit/mL 6 unit (0.06 mL) subcut HS #30 mL 07/21/24 07/29/24 Rx subcutaneous solution (Lantus U-100 Insulin) sevelamer carbonate 800 mg tablet 800 mg feeding tube TIDWM #90 tabs 07/21/24 07/29/24 Rx (Renvela) <Tamiko Mcadams APRN - Last Filed: 08/07/24 12:32> Allergies/Adverse reactions: Allergies Allergy/AdvReac Type Severity Reaction Status Date / Time No Known Allergies Allergy Verified 07/02/24 09:05 <Tamiko Mcadams APRN - Last Filed: 08/07/24 12:32> Vital Signs Vital Signs - 24 hr 08/06/24 12:00 08/06/24 16:00 08/06/24 20:00 Temperature 97.2 F L 97.4 F L 97.7 F Pulse Rate 84 85 61 Respiratory Rate 20 20 22 H Blood Pressure 134/82 168/64 H 148/57 H Pulse Oximetry 96 100 100 Oxygen Delivery 08/07/24 00:00 08/07/24 04:00 08/07/24 08:00 Temperature 97.7 F 96.8 F L 97.9 F Pulse Rate 60 64 63 Respiratory Rate 22 H 24 H 22 H Blood Pressure 132/56 L 145/57 H 147/56 H Pulse Oximetry 100 100 100 Oxygen Delivery 08/07/24 09:15 Temperature Pulse Rate Respiratory Rate Blood Pressure Pulse Oximetry Oxygen Delivery Room Air <Tamiko Mcadams APRN - Last Filed: 08/07/24 12:32> Exam Const: General: comfortable and no acute distress <Tamiko Mcadams APRN - Last Filed: 08/07/24 12:32> HENMT: Face/Nose/Sinus: Normal nares present <Tamiko Mcadams APRN - Last Filed: 08/07/24 12:32> Mouth: Yes moist mucous membranes <Tamiko Mcadams APRN - Last Filed: 08/07/24 12:32> Eyes: General: appearance normal, both eyes and all related structures <Tamiko Mcadams APRN - Last Filed: 08/07/24 12:32> Sclera: sclerae normal <Tamikoherbert Mcadams APRN - Last Filed: 08/07/24 12:32> Pupils: Equal, round and reactive pupils present <Tamiko Mcadams APRN - Last Filed: 08/07/24 12:32> Neck: Neck: supple and no JVD <Tamiko Mcadams APRN - Last Filed: 08/07/24 12:32> Resp: Effort & Inspection: normal respiratory effort <Tamiko Mcadams APRN - Last Filed: 08/07/24 12:32> Cardio: Rate: regular rate <Tamiko Mcadams APRN - Last Filed: 08/07/24 12:32> Rhythm: abnormal rhythm <Tamiko Mcadams APRN - Last Filed: 08/07/24 12:32> GI: Inspection: non-distended <Tamiko Mcadams APRN - Last Filed: 08/07/24 12:32> GI Palp: Yes Soft to palpation, No Tenderness to palpation present (GI) and No Guarding due to palpation present (GI) <Tamiko Mcadams, CLINICAL SYSTEMS ANALYST - Last Filed: 08/07/24 12:32> Auscultation: normal bowel sounds <Tamiko Perez ABEL Mcadams - Last Filed: 08/07/24 12:32> Skin: Other: edematous arms and legs <Tamiko Perez ABEL Mcadams - Last Filed: 08/07/24 12:32> Neuro: Other: non verbal <Tamiko FentonDelonte Mcadams APRN - Last Filed: 08/07/24 12:32> Extrem: General: edema <Tamiko Perez ABEL Mcadams - Last Filed: 08/07/24 12:32> Psych: Other: non verbal <Tamiko Perez ABEL Mcadams - Last Filed: 08/07/24 12:32> Results Labs CBC & Chem 7: 08/07/24 08:05 08/07/24 08:05 <Tamiko Perez ABEL Mcadams - Last Filed: 08/07/24 12:32> Labs: Short CBC 08/06/24 08/07/24 Range/Units 17:47 08:05 WBC 9.0 8.4 (4.5-10.0) K/mm3 Hgb 7.1 L 7.0 L (14.0-18.0) g/dL Hct 24.1 L 23.5 L (42.0-52.0) % Plt Count 204 203 (150-375) k/mm3 BMP 08/06/24 08/07/24 17:47 08:05 Sodium 144 144 Potassium 4.0 3.9 Chloride 111 H 108 H Carbon Dioxide 24 24 BUN 229 H 236 H Creatinine 8.00 H 7.80 H Glucose 145 H 211 H Calcium 8.5 8.4 Cardiac Enzymes 08/06/24 08/07/24 Range/Units 17:47 08:05 Total Creatine Kinase 124 77 (55-170) U/L Liver Function 08/06/24 08/07/24 Range/Units 17:47 08:05 Total Bilirubin 0.4 0.5 (0.2-1.3) mg/dL AST 734 H 283 H (17-59) U/L ALT 900 H 566 H (6-50) U/L Alkaline Phosphatase 256 H 222 H (38-126) U/L Albumin 2.7 L 2.5 L (3.5-5.1) g/dL <Tamiko Mcadams, CLINICAL SYSTEMS ANALYST - Last Filed: 08/07/24 12:32>
[2024-08-07 11:27] LABS: Glucose Point of Care 215 mg/dl (65-105)
[2024-08-07] MEDS: MEROPENEM 500 MG/NS 100 ML 500 MG/100 ML BAG 200 MG IVPB (11:46)
[2024-08-07] MEDS: INSULIN ASPART (*BKC) 100 UNITS/ML SUB-Q (11:47)
[2024-08-07 12:00] VITALS: BP 160/59; PULSE 60; RESP 20; TEMP 36.3; O2SAT 100
[2024-08-07 14:33] LABS: Haptoglobin 240 mg/dL (43-212)
--- NOTE | 2024-08-07 15:09 | P.CONGS_ITS ---
Assessment and Plan Assessment and plan (1) Cholecystitis with cholelithiasis: Code(s): K80.10 - Calculus of gallbladder with chronic cholecystitis without obstruction Status: Acute Assessment and Plan: Elevated LFTs with evidence of gallbladder wall thickening and sludge on ultrasound. WBC normal. LFTs are trending down. Patient is a poor surgical candidate given his multiple comorbidities. Recommend to continue conservative management with antibiotics and dietary modifications. (2) Insulin dependent diabetes mellitus: Status: Chronic (3) Dementia: Code(s): F03.90 - Unspecified dementia, unspecified severity, without behavioral disturbance, psychotic disturbance, mood disturbance, and anxiety Status: Acute (4) Acute UTI: Code(s): N39.0 - Urinary tract infection, site not specified Status: Acute (5) Chronic kidney disease, stage IV (severe): Code(s): N18.4 - Chronic kidney disease, stage 4 (severe) Status: Chronic (6) Pneumonia: Code(s): J18.9 - Pneumonia, unspecified organism Status: Acute (7) DVT (deep venous thrombosis): Code(s): I82.409 - Acute embolism and thrombosis of unspecified deep veins of unspecified lower extremity Status: Acute Plan I have discussed the patient's case and plan of care with Dr. Solomon. History of Present Illness Consult details Consult date: 08/07/24 Reason for consult: other (Cholecystitis) Requesting physician: Cierra Mcallister APRN Narrative: This is a 73-year-old male with history of AFib, anorexia, dysphagia with aspiration, dementia, ESRD, diabetes, peg tube, and multiple other medical problems. He resides in a skilled nursing and is essentially nonverbal, therefore history is obtained by review of the EMR. He presented to the ED on 07/28/24 for PEG tube malfunction. He has been admitted and treated for acute on chronic renal failure, PEG tube malfunction, DVT, UTI, and pneumonia. He was found to have cholelithiasis on a CT chest, abdomen, pelvis on 08/02/24 without evidence of acute cholecystitis. He then had an acute elevation of his LFTs on 08/06/24 no scott on labs with AST 1441, ALT 1109, alk phos 304. Total bilirubin has been normal. This prompted RUQ ultrasound which showed gallbladder sludge/stones with gallbladder wall thickening. We have now been asked to see the patient in surgical consultation for cholecystitis. Review of Systems Review of Systems: ROS unobtainable: Yes unobtainable due to mental status PMFSH Past Medical History Medical History A-fib Anorexia Aspiration of food Dementia Hypertension Insulin dependent diabetes mellitus Family History Family History Other Unknown family medical history Social History Social History Smoking status: Unknown if ever smoked Second hand tobacco smoke exposure: No Alcohol intake: unknown Substance use: unknown Substance use type: does not use Do You Feel Safe in your Home?: No Lack of Transportation: No Lack of Food: Never True Current Housing: I Have Housing Concerned About Future Housing: No Difficulty Paying Gas/Electric Bills: No Difficulty Paying for Meds: No Currently Unemployed: No Education: Don't Know Difficulty w/ Childcare or Family Care: No Spiritual care concerns: No Meds Home Medications and Allergies Home Medications Medication Instructions Recorded Confirmed Type glucagon 1 mg solution for 1 mg IM PRN PRN Hypoglycemia 04/28/23 07/29/24 History injection (Glucagon Emergency Kit) insulin regular human 100 unit/mL See Rx Instructions .Route .COMPLEX 07/02/24 07/29/24 History injection solution (Humulin R Regular U-100 Insulin) acetaminophen 325 mg tablet 650 mg feeding tube Q6H PRN Pain 07/21/24 07/29/24 Rx (Scale Score 1-3) #30 tabs atorvastatin 20 mg tablet 20 mg feeding tube DAILY #30 tabs 07/21/24 07/29/24 Rx hydralazine 50 mg tablet 50 mg feeding tube TID #90 tabs 07/21/24 07/29/24 Rx insulin glargine 100 unit/mL 6 unit (0.06 mL) subcut HS #30 mL 07/21/24 07/29/24 Rx subcutaneous solution (Lantus U-100 Insulin) sevelamer carbonate 800 mg tablet 800 mg feeding tube TIDWM #90 tabs 07/21/24 07/29/24 Rx (Renvela) Allergies Allergy/AdvReac Type Severity Reaction Status Date / Time No Known Allergies Allergy Verified 07/02/24 09:05 Vital Signs Vital Signs - 24 hr 08/06/24 16:00 08/06/24 20:00 08/07/24 00:00 Temperature 97.4 F L 97.7 F 97.7 F Pulse Rate 85 61 60 Respiratory Rate 20 22 H 22 H Blood Pressure 168/64 H 148/57 H 132/56 L Pulse Oximetry 100 100 100 Oxygen Delivery 08/07/24 04:00 08/07/24 08:00 08/07/24 09:15 Temperature 96.8 F L 97.9 F Pulse Rate 64 63 Respiratory Rate 24 H 22 H Blood Pressure 145/57 H 147/56 H Pulse Oximetry 100 100 Oxygen Delivery Room Air 08/07/24 12:00 Temperature 97.3 F L Pulse Rate 60 Respiratory Rate 20 Blood Pressure 160/59 H Pulse Oximetry 100 Oxygen Delivery Exam Const: General: comfortable and no acute distress Nutritional Appearance: average body habitus Orientation/consciousness: Other orientation findings (nonverbal, alert but does not follow commands) HENMT: Head: normocephalic and atraumatic Ears: hearing grossly normal bilaterally Mouth: Yes moist mucous membranes Eyes: General: appearance normal, both eyes and all related structures Pupils: Equal, round and reactive pupils present Neck: Neck: normal visual inspection and full ROM Resp: Effort & Inspection: no respiratory distress Auscultation: clear to auscultation bilaterally Cardio: Rate: regular rate Rhythm: regular rhythm Heart sounds: S1 normal heart sound present and S2 normal heart sound present GI: Inspection: non-distended and other (G tube with tube feeding) GI Palp: Yes Soft to palpation, No Tenderness to palpation present (GI) and No Guarding due to palpation present (GI) Auscultation: normal bowel sounds Skin: General skin exam: normal color Neuro: General: patient obtunded and other (nonverbal and does not follow commands) Extrem: General: normal to inspection and edema (diffuse) Psych: Insight: Limited insight present (Psych) Judgement: Limited judgement present (Psych) Results Labs 08/07/24 08:05 08/07/24 08:05 Labs: Abnormal lab results 08/05/24 08/06/24 08/06/24 Range/Units 20:14 16:24 17:47 RBC 2.41 L (4.6-6.20) M/mm3 Hgb 7.1 L (14.0-18.0) g/dL Hct 24.1 L (42.0-52.0) % MCHC 29.5 L (32-36) g/dl MPV 12.8 H (7.4-10.4) fl Immature Gran % (Auto) 0.7 H (0-0.5) % Neut % (Auto) 78.4 H (45.5-73.1) % Lymph % (Auto) 10.9 L (18.3-44.2) % [place] # (Auto) 0.7 H (0.1-0.6) K/mm3 Abs Immat Gran (auto) 0.06 H (0.00-0.031) K/mm3 Absolute Neuts (auto) 7.0 H (1.3-6.7) K/mm3 Haptoglobin 240 H (43-212) mg/dL PT 15.4 H (11.1-14.7) Seconds Chloride 111 H (98-107) mmol/L BUN 229 H (9-20) mg/dL Creatinine 8.00 H (0.7-1.3) mg/dL Estimated GFR 8 L (59 - ) Glucose 145 H (65-110) mg/dL POC Capillary Glucose 134 H (65-105) mg/dl AST 734 H (17-59) U/L ALT 900 H (6-50) U/L Alkaline Phosphatase 256 H (38-126) U/L Total Protein 6.0 L (6.3-8.2) g/dL Albumin 2.7 L (3.5-5.1) g/dL Acetaminophen < 10 L (10-30) ug/mL Crossmatch See Detail 08/06/24 08/06/24 08/07/24 Range/Units 21:09 23:47 05:17 RBC (4.6-6.20) M/mm3 Hgb (14.0-18.0) g/dL Hct (42.0-52.0) % MCHC (32-36) g/dl MPV (7.4-10.4) fl Immature Gran % (Auto) (0-0.5) % Neut % (Auto) (45.5-73.1) % Lymph % (Auto) (18.3-44.2) % [place] # (Auto) (0.1-0.6) K/mm3 Abs Immat Gran (auto) (0.00-0.031) K/mm3 Absolute Neuts (auto) (1.3-6.7) K/mm3 Haptoglobin (43-212) mg/dL PT (11.1-14.7) Seconds Chloride (98-107) mmol/L BUN (9-20) mg/dL Creatinine (0.7-1.3) mg/dL Estimated GFR (59 - ) Glucose (65-110) mg/dL POC Capillary Glucose 166 H 175 H 190 H (65-105) mg/dl AST (17-59) U/L ALT (6-50) U/L Alkaline Phosphatase (38-126) U/L Total Protein (6.3-8.2) g/dL Albumin (3.5-5.1) g/dL Acetaminophen (10-30) ug/mL Crossmatch 08/07/24 08/07/24 Range/Units 08:05 11:21 RBC 2.40 L (4.6-6.20) M/mm3 Hgb 7.0 L (14.0-18.0) g/dL Hct 23.5 L (42.0-52.0) % MCHC 29.8 L (32-36) g/dl MPV 12.8 H (7.4-10.4) fl Immature Gran % (Auto) (0-0.5) % Neut % (Auto) (45.5-73.1) % Lymph % (Auto) (18.3-44.2) % [place] # (Auto) (0.1-0.6) K/mm3 Abs Immat Gran (auto) (0.00-0.031) K/mm3 Absolute Neuts (auto) (1.3-6.7) K/mm3 Haptoglobin (43-212) mg/dL PT (11.1-14.7) Seconds Chloride 108 H (98-107) mmol/L BUN 236 H (9-20) mg/dL Creatinine 7.80 H (0.7-1.3) mg/dL Estimated GFR 8 L (59 - ) Glucose 211 H (65-110) mg/dL POC Capillary Glucose 215 H (65-105) mg/dl AST 283 H (17-59) U/L ALT 566 H (6-50) U/L Alkaline Phosphatase 222 H (38-126) U/L Total Protein 6.0 L (6.3-8.2) g/dL Albumin 2.5 L (3.5-5.1) g/dL Acetaminophen (10-30) ug/mL Crossmatch Diabetes panel 08/06/24 08/07/24 Range/Units 17:47 08:05 Sodium 144 144 (137-145) mmol/L Potassium 4.0 3.9 (3.4-5.0) mmol/L Chloride 111 H 108 H (98-107) mmol/L Carbon Dioxide 24 24 (22-30) mmol/L BUN 229 H 236 H (9-20) mg/dL Creatinine 8.00 H 7.80 H (0.7-1.3) mg/dL Glucose 145 H 211 H (65-110) mg/dL Calcium 8.5 8.4 (8.4-10.2) mg/dL AST 734 H 283 H (17-59) U/L ALT 900 H 566 H (6-50) U/L Alkaline Phosphatase 256 H 222 H (38-126) U/L Total Protein 6.0 L 6.0 L (6.3-8.2) g/dL Albumin 2.7 L 2.5 L (3.5-5.1) g/dL Calcium panel 08/06/24 08/07/24 Range/Units 17:47 08:05 Calcium 8.5 8.4 (8.4-10.2) mg/dL Albumin 2.7 L 2.5 L (3.5-5.1) g/dL Pituitary panel 08/06/24 08/07/24 Range/Units 17:47 08:05 Sodium 144 144 (137-145) mmol/L Potassium 4.0 3.9 (3.4-5.0) mmol/L Chloride 111 H 108 H (98-107) mmol/L Carbon Dioxide 24 24 (22-30) mmol/L BUN 229 H 236 H (9-20) mg/dL Creatinine 8.00 H 7.80 H (0.7-1.3) mg/dL Glucose 145 H 211 H (65-110) mg/dL Calcium 8.5 8.4 (8.4-10.2) mg/dL Adrenal panel 08/06/24 08/07/24 Range/Units 17:47 08:05 Sodium 144 144 (137-145) mmol/L Potassium 4.0 3.9 (3.4-5.0) mmol/L Chloride 111 H 108 H (98-107) mmol/L Carbon Dioxide 24 24 (22-30) mmol/L BUN 229 H 236 H (9-20) mg/dL Creatinine 8.00 H 7.80 H (0.7-1.3) mg/dL Glucose 145 H 211 H (65-110) mg/dL Calcium 8.5 8.4 (8.4-10.2) mg/dL Total Bilirubin 0.4 0.5 (0.2-1.3) mg/dL AST 734 H 283 H (17-59) U/L ALT 900 H 566 H (6-50) U/L Alkaline Phosphatase 256 H 222 H (38-126) U/L Total Protein 6.0 L 6.0 L (6.3-8.2) g/dL Albumin 2.7 L 2.5 L (3.5-5.1) g/dL All other labs normal. Imaging Additional studies: ITS Impressions Abdomen X-Ray 07/29/24 06:57 IMPRESSION: 1. Nasogastric tube in the stomach. 2. Mild opacities in bilateral lower lung zones which could represent atelectasis or pneumonia. Abdomen X-Ray 07/29/24 06:59 IMPRESSION: 1. Nasogastric tube in the stomach. 2. Opacities in bilateral lower lung zones which could represent atelectasis or pneumonia. Abdomen X-Ray 07/30/24 07:14 IMPRESSION: 1. Nasogastric tube in stomach. 2. Persistent mild opacities at the right lung base which could represent atelectasis or pneumonia and likely tiny bilateral pleural effusions. Chest X-Ray 07/30/24 15:39 IMPRESSION: Mild bilateral lower lobe infiltrate and/or atelectasis, right greater than left Chest X-Ray 07/31/24 05:57 IMPRESSION: 1. Cardiomegaly. Chest/Abdomen/Pelvis CT 08/02/24 17:17 IMPRESSION: 1. Mild emphysema with small bilateral pleural effusions and region of consoli dation at the lateral basilar right lower lobe which could represent atelectasis or pneumonia. 2. Cardiomegaly with prominent left ventricular enlargement. 3. Multinodular goiter. Consider thyroid ultrasound for risk stratification. 4. Lan catheter in the bladder with wall thickening and slight haziness to the surrounding fat suggestive of cystitis either acute or chronic. Correlate with urinalysis. 5. Cholelithiasis. 6. Large right hydrocele. 7. Nonspecific mild diffuse edema of the intra-abdominal/pelvic and body wall fat. Chest X-Ray 08/04/24 06:26 IMPRESSION: Bibasilar lower lobe atelectasis and/or consolidation and small pleural effusions Cardiomegaly, aortic atherosclerosis Chest X-Ray 08/05/24 11:07 IMPRESSION: Mild infiltrate or atelectasis at the lung bases, stable or mildly improved since 08/03/2024 Venous Doppler Study 08/05/24 12:50 IMPRESSION: Right cephalic vein thrombosis Thrombus within left subclavian vein Abdomen Ultrasound 08/06/24 14:21 IMPRESSION: Gallbladder sludge/stones with gallbladder wall thickening. Small right pleural effusion. Small volume ascites.
[2024-08-07 16:00] VITALS: BP 141/49; PULSE 72; RESP 20; TEMP 36.3; O2SAT 100
[2024-08-07 17:31] LABS: Glucose Point of Care 216 mg/dl (65-105)
[2024-08-07] MEDS: COLLAGENASE OINT 30 GM TUBE 1 APPLIC TOPICAL (19:36)
[2024-08-07 20:00] VITALS: BP 139/55; PULSE 67; RESP 26; TEMP 36.7; O2SAT 100
[2024-08-07] MEDS: HYDROcodone/acetaminophen (*CRX) 5-325 MG TABLET 1 TAB FEED TUBE (21:19)
[2024-08-07] MEDS: INSULIN GLARGINE (*BKC) 100 UNITS/ML 6 UNITS SUB-Q (21:21)
[2024-08-07 21:52] LABS: Glucose Point of Care 212 mg/dl (65-105)
[2024-08-08] VITALS: BP 133/52; PULSE 57; RESP 24; TEMP 36.9; O2SAT 100
[2024-08-08 00:08] LABS: Glucose Point of Care 210 mg/dl (65-105)
[2024-08-08 04:00] VITALS: BP 145/59; PULSE 64; RESP 26; TEMP 37.2; O2SAT 100
[2024-08-08 05:27] LABS: Glucose Point of Care 226 mg/dl (65-105)
[2024-08-08] MEDS: hydrALAZINE HCL 50 MG TABLET 100 MG FEED TUBE ×3 (05:30→20:53)
[2024-08-08] MEDS: INSULIN ASPART (*BKC) 100 UNITS/ML SUB-Q ×3 (05:30→19:27)
[2024-08-08 08:00] VITALS: BP 120/79; PULSE 59; RESP 26; TEMP 36.6; O2SAT 100
[2024-08-08] MEDS: CALCIUM ACETATE 667 MG TABLET FEED TUBE ×3 (08:31→17:19)
[2024-08-08] MEDS: amLODIPine BESYLATE 5 MG TABLET FEED TUBE (08:31)
[2024-08-08] MEDS: ATORVASTATIN 20 MG TABLET FEED TUBE (08:31)
[2024-08-08] MEDS: guaiFENesin 12 HR 600 MG TABCR PO ×2 (08:31→20:53)
[2024-08-08] MEDS: ENOXAPARIN 80 MG/0.8 ML SYRINGE 70 MG SUB-Q (08:31)
[2024-08-08] MEDS: HYDROcodone/acetaminophen (*CRX) 5-325 MG TABLET 1 TAB FEED TUBE (08:39)
[2024-08-08] MEDS: MEROPENEM 500 MG/NS 100 ML 500 MG/100 ML BAG 200 MG IVPB (08:42)
--- NOTE | 2024-08-08 08:43 | PM.PNGS ---
Progress Note: A&P Assessment and Plan (1) Cholecystitis with cholelithiasis: Code(s): K80.10 - Calculus of gallbladder with chronic cholecystitis without obstruction Status: Acute Assessment and Plan: Exam remains unchanged and benign, patient extremely poor surgical candidate, no acute surgical indications at this time, will sign off, call with questions or issues Subjective Subjective Date/Time Seen: 08/08/24 08:43 Interval history: No acute changes overnight, continues to tolerate tube feeds Review of Systems Review of Systems: ROS unobtainable: Yes unobtainable due to medical condition and unobtainable due to mental status Exam Const: General: comfortable, no acute distress and ill appearing Resp: Auscultation: diminished lung sounds Cardio: Rate: regular rate Rhythm: regular rhythm GI: Inspection: normal to inspection and non-distended GI Palp: No abdominal tenderness and Yes Soft to palpation Other: G tube - C/D/I Objective Data Vital Signs Vital Signs: Vital Signs - 24 hr 08/07/24 09:15 08/07/24 12:00 08/07/24 16:00 Temperature 36.3 C L 36.3 C L Pulse Rate 60 72 Respiratory Rate 20 20 Blood Pressure 160/59 H 141/49 H Pulse Oximetry 100 100 Oxygen Delivery Room Air 08/07/24 20:00 08/08/24 00:00 08/08/24 04:00 Temperature 36.7 C 36.9 C 37.2 C Pulse Rate 67 57 L 64 Respiratory Rate 26 H 24 H 26 H Blood Pressure 139/55 L 133/52 L 145/59 H Pulse Oximetry 100 100 100 Oxygen Delivery 08/08/24 08:00 Temperature 36.6 C Pulse Rate 59 L Respiratory Rate 26 H Blood Pressure 120/79 Pulse Oximetry 100 Oxygen Delivery Intake/Output Intake/Output: Intake & Output 08/05/24 08/06/24 08/07/24 08/08/24 23:59 23:59 23:59 23:59 Intake Total 246.9 100 Output Total 825 750 800 450 Balance -825 -503.1 -700 -450 Meds/Results Medications: Active Medications Generic Name Dose Route Start Last Admin Trade Name Freq PRN Reason Stop Dose Admin Acetaminophen 650 mg 07/30/24 10:37 Acetaminophen 650 Mg Suppository RECTAL Q6H PRN Mild Pain (1-3) or Fever Hydrocodone Bitart/Acetaminophen 1 tab 07/30/24 14:29 08/08/24 08:39 Hydrocodone/Acetaminophen (*Crx) 5-325 Mg Tablet FEED TUBE 1 tab Q6H PRN Administration Pain Rated 4-6 Amlodipine Besylate 5 mg 08/04/24 09:00 08/08/24 08:31 Amlodipine Besylate 5 Mg Tablet FEED TUBE 5 mg DAILY URIAH Administration Atorvastatin Calcium 20 mg 07/30/24 09:00 08/08/24 08:31 Atorvastatin 20 Mg Tablet FEED TUBE 20 mg DAILY URIAH Administration Calcium Acetate 667 mg 08/03/24 13:00 08/08/24 08:31 Calcium Acetate 667 Mg Tablet FEED TUBE 667 mg TID URIAH Administration Collagenase 1 applic 07/31/24 10:45 08/07/24 19:36 Collagenase Oint 30 Gm Tube TOPICAL 1 applic QAM URIAH Administration Dextrose 12.5 gm 07/29/24 11:33 Dextrose 50% 25 Gm/50 Ml Syringe IV PUSH PRN PRN Hypoglycemia Protocol Enoxaparin Sodium 70 mg 08/07/24 09:00 08/08/24 08:31 Enoxaparin 80 Mg/0.8 Ml Syringe SUB-Q 70 mg DAILY URIAH Administration Glucagon 1 mg 07/29/24 11:33 Glucagon For Inj 1 Mg Vial IM PRN PRN Hypoglycemia Protocol Glucose 15 gm 07/29/24 11:33 Glucose Oral Gel 15 Gm Of Glucse In 37.5 Gm Tube PO PRN PRN Hypoglycemia Protocol Guaifenesin 600 mg 08/03/24 21:00 08/08/24 08:31 Guaifenesin 12 Hr 600 Mg Tabcr PO 600 mg Q12HR URIAH Administration Hydralazine HCl 100 mg 08/01/24 14:00 08/08/24 05:30 Hydralazine Hcl 50 Mg Tablet FEED TUBE 100 mg Q8HR URIAH Administration Dextrose 1,000 mls @ 100 mls/hr 07/29/24 11:33 Dextrose 5% 1,000 Ml IVPB PRN PRN Hypoglycemia Protocol Meropenem 500 mg in 100 mls @ 200 mls/hr 08/07/24 10:30 08/08/24 08:42 IVPB 200 mls/hr DAILY URIAH Administration Insulin Aspart 2 - 5 units 07/29/24 12:00 08/08/24 05:30 Insulin Aspart (*Bkc) 100 Units/Ml SUB-Q 2 units Q6HR URIAH Administration Protocol Insulin Glargine 6 units 07/30/24 21:00 08/07/24 21:21 Insulin Glargine (*Bkc) 100 Units/Ml SUB-Q 6 units HS URIAH Administration Morphine Sulfate 2 mg 07/30/24 14:28 07/31/24 17:25 Morphine Sulfate (*Crx) 2 Mg/Ml Inj IV PUSH 2 mg Q4H PRN Administration Pain Rated 7-10 Sevelamer Carbonate 1 each 08/02/24 08:00 08/07/24 16:52 0.8gm Powder Packet FEED TUBE 09/01/24 07:59 1 each TIDWM URIAH Administration Ondansetron HCl 4 mg 07/30/24 10:37 Ondansetron Inj 4 Mg/2 Ml Vial IV PUSH Q6H PRN Nausea And Vomiting Perflutren Lipid Microsphere 0 ml 08/05/24 11:08 Perflutren Lipid Microspheres 1.5 Ml Vial Diluted To 10 Ml Total Volume IV PUSH 08/08/24 11:08 ONCE PRN adequate visualization Protocol Radiology Results: ITS Impressions Abdomen X-Ray 07/30/24 07:14 IMPRESSION: 1. Nasogastric tube in stomach. 2. Persistent mild opacities at the right lung base which could represent atelectasis or pneumonia and likely tiny bilateral pleural effusions. Chest/Abdomen/Pelvis CT 08/02/24 17:17 IMPRESSION: 1. Mild emphysema with small bilateral pleural effusions and region of consolidation at the lateral basilar right lower lobe which could represent atelectasis or pneumonia. 2. Cardiomegaly with prominent left ventricular enlargement. 3. Multinodular goiter. Consider thyroid ultrasound for risk stratification. 4. Lan catheter in the bladder with wall thickening and slight haziness to the surrounding fat suggestive of cystitis either acute or chronic. Correlate with urinalysis. 5. Cholelithiasis. 6. Large right hydrocele. 7. Nonspecific mild diffuse edema of the intra-abdominal/pelvic and body wall fat. Chest X-Ray 08/05/24 11:07 IMPRESSION: Mild infiltrate or atelectasis at the lung bases, stable or mildly improved since 08/03/2024 Venous Doppler Study 08/05/24 12:50 IMPRESSION: Right cephalic vein thrombosis Thrombus within left subclavian vein Abdomen Ultrasound 08/06/24 14:21 IMPRESSION: Gallbladder sludge/stones with gallbladder wall thickening. Small right pleural effusion. Small volume ascites. Labs Labs: Laboratory Results - last 24 hr 08/05/24 08/07/24 08/07/24 20:14 08:05 11:21 Haptoglobin 240 H Sodium 144 Potassium 3.9 Chloride 108 H Carbon Dioxide 24 Anion Gap 12 BUN 236 H Creatinine 7.80 H Estim Creat Clear Calc 7 Estimated GFR 8 L Glucose 211 H POC Capillary Glucose 215 H Calcium 8.4 Magnesium 2.2 Total Bilirubin 0.5 AST 283 H ALT 566 H Alkaline Phosphatase 222 H Total Creatine Kinase 77 Total Protein 6.0 L Albumin 2.5 L Crossmatch See Detail 08/07/24 08/07/24 08/07/24 17:29 21:26 23:59 Haptoglobin Sodium Potassium Chloride Carbon Dioxide Anion Gap BUN Creatinine Estim Creat Clear Calc Estimated GFR Glucose POC Capillary Glucose 216 H 212 H 210 H Calcium Magnesium Total Bilirubin AST ALT Alkaline Phosphatase Total Creatine Kinase Total Protein Albumin Crossmatch 08/08/24 05:24 Haptoglobin Sodium Potassium Chloride Carbon Dioxide Anion Gap BUN Creatinine Estim Creat Clear Calc Estimated GFR Glucose POC Capillary Glucose 226 H Calcium Magnesium Total Bilirubin AST ALT Alkaline Phosphatase Total Creatine Kinase Total Protein Albumin Crossmatch
[2024-08-08] MEDS: SEVELAMER CARBONATE 0.8 GM 1 EACH FEED TUBE ×3 (08:51→17:18)
--- NOTE | 2024-08-08 11:23 | PCNFU ---
Nutrition Follow-Up Complete: Inadequate energy intake related to NPO with no tube feeding running at this time as evidenced by diet orders, currently dislodged PEG Goal: Meet estimated needs Patient is meeting goal. No new goal. Pt current nutrition is Nepro at 50 ml/hr. Last recorded weight is 71.4 kg, stable. Bowel Motility: +BM reported 08/08 Labs Reviewed: no new labs to report. Meds Noted: PhosLo, Lantus, NovoLog. Skin: unstageable pressure ulcer to thigh. Additional Notes: Patient remains on tube feedings via PEG of Nepro at 50 ml/hr. Tube feedings are providing 1980 kcal/89 gm protein/800 ml water. Flush 200 ml q 4 hours. Meeting 100% kcal needs at 28 kcal/kg and 100% protein needs at 1.2 gm/kg protein. Agree with diet orders. Monitor PEG placement, tube feed starts, tolerance, rate, wt, labs. Follow up every Wednesday and Wednesday.
[2024-08-08 11:40] LABS: Glucose Point of Care 212 mg/dl (65-105)
[2024-08-08 12:00] VITALS: BP 147/62; PULSE 54; RESP 22; TEMP 35.9; O2SAT 100
--- NOTE | 2024-08-08 12:16 | P.PNNP_ITS ---
Progress Note: A&P Assessment and Plan (1) Chronic kidney disease, stage 5: Code(s): N18.5 - Chronic kidney disease, stage 5 Status: Chronic Assessment and Plan: * worsening progression as noted by previous hospitalizations and labs * presumably due to hypertension and diabetes as well as age with repeated bouts of LINDSEY/ARF contributing * previous evaluation on last hospitalization noted * evaluation to date noted... * placement of tunneled HD catheter placement not done previously as he is at high risk for complications * I reiterate what I said on his last hospitalization: * considering his mental status and considerable morbidity related to starting dialysis especially with the high risk of placing a catheter in general, it would seem that the risks HD catheter placement as well as dialysis far exceeds the benefit. I would support the patient transitioning to comfort measures or at least not escalating further therapy... (2) Hypernatremia: Code(s): E87.0 - Hyperosmolality and hypernatremia Status: Acute Assessment and Plan: * due to PEG tube malfunction * improvement noted by last labs * s/p D5W IVFs * resumed on free water tube flushes (3) PEG tube malfunction: Code(s): K94.23 - Gastrostomy malfunction Status: Acute Assessment and Plan: * as noted on admission by imaging and history * s/p replacement by GI on 08/01 * known history of aspiration * resumed on tube feeds and free water flushes (4) DVT (deep venous thrombosis): Code(s): I82.409 - Acute embolism and thrombosis of unspecified deep veins of unspecified lower extremity Status: Acute Assessment and Plan: * noted DVTs in upper extremities by doppler * was on heparin gtt * however, IV access is now an issue... (5) Acute UTI: Code(s): N39.0 - Urinary tract infection, site not specified Status: Acute Assessment and Plan: * complicated by chronic roth catheter * admission UA quite suggestive * follow culture data: * blood culture negative * urine culture with E.coli * on antibiotics (6) Elevated LFTs: Code(s): R79.89 - Other specified abnormal findings of blood chemistry Status: Acute Assessment and Plan: * noted in the last 24 - 48 hours * abdominal ultrasound results noted * Surgery and GI consulted (7) Anemia: Qualifiers: Anemia type: unspecified type Qualified Code(s): D64.9 - Anemia, unspecified Code(s): D64.9 - Anemia, unspecified Status: Acute Assessment and Plan: * due to advanced CKD * consider Retacrit but may not be effective * follow trend of H/H (8) Hypertension: Code(s): I10 - Essential (primary) hypertension Status: Chronic Assessment and Plan: * reasonable control * follow trend of hemodynamics (9) Insulin dependent diabetes mellitus: Status: Chronic Assessment and Plan: * follow accu-cheks * glycemic control per hospitalists Not much else to add from renal perspective -- will follow from a distance. Subjective Date/time seen: 08/08/24 12:16 Interval history: Follow-up for chronic kidney disease and hyponatremia. No escalation of care noted -- no further labs or imaging being done as patient not a candidate for surgical invention at this or dialysis as already noted on both this and previous hospitalization; mentation remains unchanged; no issues/events overnight or earlier this morning. Exam Narrative: General: frail appearing male in NAD Heart: normal S1 and S2; no rub Lungs: clear anteriorly Abdomen: soft, nontender, nondistended, positive bowel sounds Extremities: trace edema; contracted posture Skin: warm and intact Objective Data Vital Signs Vital Signs: Vital Signs Temp Pulse Resp BP Pulse Ox O2 Del Method 08/08/24 12:00 96.7 F L 54 L 22 H 147/62 H 100 08/08/24 08:00 97.9 F 59 L 26 H 120/79 100 08/08/24 04:00 98.9 F 64 26 H 145/59 H 100 08/08/24 00:00 98.5 F 57 L 24 H 133/52 L 100 08/07/24 20:00 98.1 F 67 26 H 139/55 L 100 Intake/Output Intake/Output: Intake & Output 08/05/24 08/06/24 08/07/24 08/08/24 23:59 23:59 23:59 23:59 Intake Total 246.9 100 100 Output Total 825 750 800 750 Balance -825 -503.1 -700 -650 Meds/Results Medications: Active Medications Generic Name Dose Route Start Last Admin Trade Name Freq PRN Reason Stop Dose Admin Acetaminophen 650 mg 07/30/24 10:37 Acetaminophen 650 Mg Suppository RECTAL Q6H PRN Mild Pain (1-3) or Fever Hydrocodone Bitart/Acetaminophen 1 tab 07/30/24 14:29 08/08/24 08:39 Hydrocodone/Acetaminophen (*Crx) 5-325 Mg Tablet FEED TUBE 1 tab Q6H PRN Administration Pain Rated 4-6 Amlodipine Besylate 5 mg 08/04/24 09:00 08/08/24 08:31 Amlodipine Besylate 5 Mg Tablet FEED TUBE 5 mg DAILY URIAH Administration Atorvastatin Calcium 20 mg 07/30/24 09:00 08/08/24 08:31 Atorvastatin 20 Mg Tablet FEED TUBE 20 mg DAILY URIAH Administration Calcium Acetate 667 mg 08/03/24 13:00 08/08/24 17:19 Calcium Acetate 667 Mg Tablet FEED TUBE 667 mg TID URIAH Administration Collagenase 1 applic 07/31/24 10:45 08/08/24 12:26 Collagenase Oint 30 Gm Tube TOPICAL 1 applic QAM URIAH Administration Dextrose 12.5 gm 07/29/24 11:33 Dextrose 50% 25 Gm/50 Ml Syringe IV PUSH PRN PRN Hypoglycemia Protocol Enoxaparin Sodium 70 mg 08/07/24 09:00 08/08/24 08:31 Enoxaparin 80 Mg/0.8 Ml Syringe SUB-Q 70 mg DAILY URIAH Administration Glucagon 1 mg 07/29/24 11:33 Glucagon For Inj 1 Mg Vial IM PRN PRN Hypoglycemia Protocol Glucose 15 gm 07/29/24 11:33 Glucose Oral Gel 15 Gm Of Glucse In 37.5 Gm Tube PO PRN PRN Hypoglycemia Protocol Guaifenesin 600 mg 08/03/24 21:00 08/08/24 08:31 Guaifenesin 12 Hr 600 Mg Tabcr PO 600 mg Q12HR URIAH Administration Hydralazine HCl 100 mg 08/01/24 14:00 08/08/24 14:15 Hydralazine Hcl 50 Mg Tablet FEED TUBE 100 mg Q8HR URIAH Administration Dextrose 1,000 mls @ 100 mls/hr 07/29/24 11:33 Dextrose 5% 1,000 Ml IVPB PRN PRN Hypoglycemia Protocol Meropenem 500 mg in 100 mls @ 200 mls/hr 08/07/24 10:30 08/08/24 09:12 IVPB 08/10/24 23:59 Infused DAILY URIAH Infusion Insulin Aspart 2 - 5 units 07/29/24 12:00 08/08/24 12:21 Insulin Aspart (*Bkc) 100 Units/Ml SUB-Q 2 units Q6HR URIAH Administration Protocol Insulin Glargine 6 units 07/30/24 21:00 08/07/24 21:21 Insulin Glargine (*Bkc) 100 Units/Ml SUB-Q 6 units HS URIAH Administration Morphine Sulfate 2 mg 07/30/24 14:28 07/31/24 17:25 Morphine Sulfate (*Crx) 2 Mg/Ml Inj IV PUSH 2 mg Q4H PRN Administration Pain Rated 7-10 Sevelamer Carbonate 1 each 08/02/24 08:00 08/08/24 17:18 0.8gm Powder Packet FEED TUBE 09/01/24 07:59 1 each TIDWM URIAH Administration Ondansetron HCl 4 mg 07/30/24 10:37 Ondansetron Inj 4 Mg/2 Ml Vial IV PUSH Q6H PRN Nausea And Vomiting Radiology Results: ITS Impressions Abdomen X-Ray 07/30/24 07:14 IMPRESSION: 1. Nasogastric tube in stomach. 2. Persistent mild opacities at the right lung base which could represent atelectasis or pneumonia and likely tiny bilateral pleural effusions. Chest/Abdomen/Pelvis CT 08/02/24 17:17 IMPRESSION: 1. Mild emphysema with small bilateral pleural effusions and region of consolidation at the lateral basilar right lower lobe which could represent atelectasis or pneumonia. 2. Cardiomegaly with prominent left ventricular enlargement. 3. Multinodular goiter. Consider thyroid ultrasound for risk stratification. 4. Roth catheter in the bladder with wall thickening and slight haziness to the surrounding fat suggestive of cystitis either acute or chronic. Correlate with urinalysis. 5. Cholelithiasis. 6. Large right hydrocele. 7. Nonspecific mild diffuse edema of the intra-abdominal/pelvic and body wall fat. Chest X-Ray 08/05/24 11:07 IMPRESSION: Mild infiltrate or atelectasis at the lung bases, stable or mildly improved since 08/03/2024 Venous Doppler Study 08/05/24 12:50 IMPRESSION: Right cephalic vein thrombosis Thrombus within left subclavian vein Abdomen Ultrasound 08/06/24 14:21 IMPRESSION: Gallbladder sludge/stones with gallbladder wall thickening. Small right pleural effusion. Small volume ascites. Labs Labs: Laboratory Results - last 24 hr 08/07/24 08/07/24 08/08/24 21:26 23:59 05:24 POC Capillary Glucose 212 H 210 H 226 H 08/08/24 11:37 POC Capillary Glucose 212 H
--- NOTE | 2024-08-08 12:17 | P.PNIM_ITS ---
Progress Note: A&P Assessment and Plan (1) PEG tube malfunction: Code(s): K94.23 - Gastrostomy malfunction Status: Acute Assessment and Plan: * HX of aspiration * recent placement of peg tube * Dislodged per KUB * GI consulted * Monitor electrolytes replenish as needed and adjust flushes as needed for any hypernatremia * Peg tube placement 08/01 * NA slowly improving with increased free water flush * Increased FWF to 200 ml on 08/03 * Reglan added to help with GI motility, and decrease risk of aspiration, tube feed goal 50 mils per hour for adequate nutrition 08/08: Tube feeds at goal, FWF continue, patient is third spacing fluid due to renal failure (2) Renal failure (ARF), acute on chronic: Code(s): N17.9 - Acute kidney failure, unspecified; N18.9 - Chronic kidney disease, unspecified Status: Acute Assessment and Plan: nephrology on board * Acute on Chronic ESRD * Patient is not a candidate for hemodialysis--from Dr Weiner's note on 07/19/24 considering his mental status and considerable morbidity related to starting dialysis especially with the high risk of placing a catheter in general, it would seem that the risks HD catheter placement as well as dialysis far exceeds the benefit, . * Patient's facility is working to on obtaining guardianship and then patient will be made DNR. * Renvela was stopped for some reason, maybe due to displaced g-tube. Continue phosphorus binder now. * Monitor antihypertensive drug therapy. * Avoid NSAIDs/nephrotoxins, follow creatinine/BUN, electrolytes. Renally dose meds Dr Weiner's note from today 08/07/2024 * placement of tunneled HD catheter placement not done previously as he is at high risk for complications * I reiterate what I said on his last hospitalization: * considering his mental status and considerable morbidity related to starting dialysis especially with the high risk of placing a catheter in general, it would seem that the risks HD catheter placement as well as dialysis far exceeds the benefit. I would support the patient transitioning to comfort measures or at least not escalating further therapy... 08/08/24: Daily labs forgone due to no access to draw from, agree with medically futile to continue care escalation (3) Insulin dependent diabetes mellitus: Status: Chronic Assessment and Plan: * Accu-Cheks A6HR on tube feeds, SSI * Continue Lantus 6hs * Watch for hypoglycemia/hypoglycemic protocol ordered * Blood sugars relatively controlled on current regimen (4) Pneumonia: Code(s): J18.9 - Pneumonia, unspecified organism Status: Acute Assessment and Plan: Chest x-ray 08/04 showed bibasilar lower lobe small pleural effusions. WBC has been trending down since admission. Afebrile and on RA --Repeat chest x-ray today. --Consider repeat CT chest if not improving. Would avoid IV contrast under almost all circumstances since very likely to worsen renal failure and no options for dialysis --On Ceftriaxone --WBC increased to 18.8 with elevation in procalcitonin of 3.8 and elevated CRP --Blood cultures 08/02 NGTD * Broadened to Meropenem to cover for ESBL as urine is cloudy, hull-yellow with sediment present. Added atypical PNA coverage with azithromycin for 5 days. 08/02-08/06 * CT chest shows area of consolidation to lateral, basilar right lower lobe with small bilateral pleural effusions * He sounds more congested today. Will start CPT vest therapy, add Mucinex. * completed IV antibiotics, will complete p.o. antibiotics today 08/08: Meropenem continues for UTI/cholecystis through 08/10 (5) Hypertension: Code(s): I10 - Essential (primary) hypertension Status: Chronic Assessment and Plan: improved * patient hypertensive admission * had missed his blood pressure medication * resume hydralazine t.i.d. through tube * added p.r.n. hydralazine for systolic over 180 * Patient still hypertensive systolic's 170's * increased his hydralazine to 100 TID * Added low dose amlodipine 5 mg daily. Patient was on this last admission but medication was stopped due to low blood pressure. * Blood pressure marginally better 08/08: Blood pressure stable, continue current management (6) Dementia: Code(s): F03.90 - Unspecified dementia, unspecified severity, without behavioral disturbance, psychotic disturbance, mood disturbance, and anxiety Status: Acute Assessment and Plan: 08/08/24: Severe dementia, non-verbal on assessment, PEG tube in place, bilateral UE DVTs. Care escalation appears to be medically futile (7) Hypernatremia: Code(s): E87.0 - Hyperosmolality and hypernatremia Status: Acute Assessment and Plan: improved * NA 140 07/21/24 up to 152 on admission 07/28 and has been slowly trending down with fluids 152<155>150 but now holding fluids for possible fluid overload * daily bmp * Consult renal okay to stop D5W, continue with free water flushes at 200 every 4 hours 08/08: On 08/07 Na was 144, daily labs held at this time due to no access to draw from (8) Acute UTI: Code(s): N39.0 - Urinary tract infection, site not specified Status: Acute Assessment and Plan: 08/08: Meropenem continues for UTI/cholecystis through 08/10 (9) DVT (deep venous thrombosis): Code(s): I82.409 - Acute embolism and thrombosis of unspecified deep veins of unspecified lower extremity Status: Acute Assessment and Plan: left subclavian vein (which is a deep vein) and thrombosis of the right cephalic vein heparin drip per protocol stopped Due to loss of IV access therapeutic Lovenox (10) Elevated LFTs: Code(s): R79.89 - Other specified abnormal findings of blood chemistry Status: Acute Assessment and Plan: 08/08: Downtrended labs, further labs deferred at this time. Plan Ethics consult requested due to apparent medical futility. Patient has renal failure and unable to place dialysis access. Patient not surgical candidate for acute cholecystitis or ERCP. Time Spent With Patient Time with patient: Greater than 35 minutes Subjective Date/time seen: 08/08/24 12:17 Interval history: 73-year-old male with past medical history significant for dementia, patient is oriented times once at times, end-stage renal disease not on dialysis, Comes to the emergency room after his PEG tube was dislodged s/p replaced. Abdominal ultrasound for elevated LFT show Gallbladder sludge/stones with gallbladder wall thickening. Small right pleural effusion. Small volume ascites. Patient started Zosyn last night. Ethics, GI and surgery consulted today. Dr Bright for nephrology states considering his mental status and considerable morbidity related to starting dialysis especially with the high risk of placing a catheter in general, it would seem that the risks HD catheter placement as well as dialysis far exceeds the benefit. I would support the patient transitioning to comfort measures or at least not escalating further therapy... GI recommendation * continue monitoring LFTs and if they do not continued to trend down may consider more detailed imaging such as an MRCP Due to patient not being a surgical candidate MRCP is unnecessary diagnostic test as the patient is not a candidate for intervention ovaries. [employer] for Surgery Elevated LFTs with evidence of gallbladder wall thickening and s ludge on ultrasound. WBC normal. Patient is a poor surgical candidate given his multiple comorbidities. Would recommend to continue conservative management with antibiotics and monitoring. Miladys from Ethics spoke with patient's nursing manager patient has a court date for 09/01/2024 For shelter issue not having a POA and not being able to make his own decisions. Patient currently is a full code okay for CPR and intubation. Prior provider discussed over the phone with Dr. Bernal and Dr Solomon about patient's case being futile, both verbally in agreement over the phone that if IV access is lost, care should not be escalated to a central line i.e. femoral line as the patient does not qualify for a midline or a subclavian. Dr. Solomon signed off case on 08/08/24 due to not a surgical candidate. GI recommendation * continue monitoring LFTs and if they do not continued to trend down may consider more detailed imaging such as an MRCP Due to patient not being a surgical candidate MRCP is unnecessary diagnostic test as the patient is not a candidate for intervention ovaries. Nephrology documents that escalating patient care including dialysis is futile as patient is at severe risk related to catheter insertion and patient has bilateral upper extremity DVTs. Since neither GI nor Surgery documented agreement with medical futility, only verbalized such to prior provider, Ethics consult is not able to happen expeditiously. I agree that continuing to escalate care is medically futile at this point as patient is experiencing third spacing of fluid due to renal failure and patient not able to be dialyzed. Daily labs not ordered at this time. IV access lost on 08/08/24, attempting to place IV access in lower extremity which will increase risk of additional DVT. Review of Systems Review of Systems: ROS unobtainable: Yes unobtainable due to medical condition and unobtainable due to mental status ( Advanced dementia) Exam Narrative: General: overall appears comfortable but mildly tachypneic/shallow breathing, in no acute distress, nonverbal but awake and responsive Respiratory: mild tachypnea, lungs are coarse without wheezing or rhonchi. Cardiovascular: Rate and rhythm regular, normal s1s2, no murmur Abdomen: Soft, round, non-tender, active bowel sounds, g-tube with abdominal binder in place Extremities: No cyanosis, dependent pitting edema to bilateral upper extremities, L>R, no clubbing. Pulses 2/2 Generalized edema noted throughout Neuro: Alert and non-verbal, moves all extremities with generalized weakness. Skin: Warm, dry, intact. Left gluteus with pressure related ulcer with eschar wound bed. Objective Data Vital Signs Vital Signs: Vital Signs - 24 hr 08/07/24 16:00 08/07/24 20:00 08/08/24 00:00 Temperature 36.3 C L 36.7 C 36.9 C Pulse Rate 72 67 57 L Respiratory Rate 20 26 H 24 H Blood Pressure 141/49 H 139/55 L 133/52 L Pulse Oximetry 100 100 100 08/08/24 04:00 08/08/24 08:00 08/08/24 12:00 Temperature 37.2 C 36.6 C 35.9 C L Pulse Rate 64 59 L 54 L Respiratory Rate 26 H 26 H 22 H Blood Pressure 145/59 H 120/79 147/62 H Pulse Oximetry 100 100 100 Intake/Output Intake/Output: Intake & Output 08/05/24 08/06/24 08/07/24 08/08/24 23:59 23:59 23:59 23:59 Intake Total 246.9 100 Output Total 825 750 800 450 Balance -825 -503.1 -700 -450 Meds/Results Medications: Active Medications Generic Name Dose Route Start Last Admin Trade Name Freq PRN Reason Stop Dose Admin Acetaminophen 650 mg 07/30/24 10:37 Acetaminophen 650 Mg Suppository RECTAL Q6H PRN Mild Pain (1-3) or Fever Hydrocodone Bitart/Acetaminophen 1 tab 07/30/24 14:29 08/08/24 08:39 Hydrocodone/Acetaminophen (*Crx) 5-325 Mg Tablet FEED TUBE 1 tab Q6H PRN Administration Pain Rated 4-6 Amlodipine Besylate 5 mg 08/04/24 09:00 08/08/24 08:31 Amlodipine Besylate 5 Mg Tablet FEED TUBE 5 mg DAILY URIAH Administration Atorvastatin Calcium 20 mg 07/30/24 09:00 08/08/24 08:31 Atorvastatin 20 Mg Tablet FEED TUBE 20 mg DAILY URIAH Administration Calcium Acetate 667 mg 08/03/24 13:00 08/08/24 08:31 Calcium Acetate 667 Mg Tablet FEED TUBE 667 mg TID URIAH Administration Collagenase 1 applic 07/31/24 10:45 08/07/24 19:36 Collagenase Oint 30 Gm Tube TOPICAL 1 applic QAM URIAH Administration Dextrose 12.5 gm 07/29/24 11:33 Dextrose 50% 25 Gm/50 Ml Syringe IV PUSH PRN PRN Hypoglycemia Protocol Enoxaparin Sodium 70 mg 08/07/24 09:00 08/08/24 08:31 Enoxaparin 80 Mg/0.8 Ml Syringe SUB-Q 70 mg DAILY URIAH Administration Glucagon 1 mg 07/29/24 11:33 Glucagon For Inj 1 Mg Vial IM PRN PRN Hypoglycemia Protocol Glucose 15 gm 07/29/24 11:33 Glucose Oral Gel 15 Gm Of Glucse In 37.5 Gm Tube PO PRN PRN Hypoglycemia Protocol Guaifenesin 600 mg 08/03/24 21:00 08/08/24 08:31 Guaifenesin 12 Hr 600 Mg Tabcr PO 600 mg Q12HR URIAH Administration Hydralazine HCl 100 mg 08/01/24 14:00 08/08/24 05:30 Hydralazine Hcl 50 Mg Tablet FEED TUBE 100 mg Q8HR URIAH Administration Dextrose 1,000 mls @ 100 mls/hr 07/29/24 11:33 Dextrose 5% 1,000 Ml IVPB PRN PRN Hypoglycemia Protocol Meropenem 500 mg in 100 mls @ 200 mls/hr 08/07/24 10:30 08/08/24 08:42 IVPB 200 mls/hr DAILY URIAH Administration Insulin Aspart 2 - 5 units 07/29/24 12:00 08/08/24 05:30 Insulin Aspart (*Bkc) 100 Units/Ml SUB-Q 2 units Q6HR URIAH Administration Protocol Insulin Glargine 6 units 07/30/24 21:00 08/07/24 21:21 Insulin Glargine (*Bkc) 100 Units/Ml SUB-Q 6 units HS URIAH Administration Morphine Sulfate 2 mg 07/30/24 14:28 07/31/24 17:25 Morphine Sulfate (*Crx) 2 Mg/Ml Inj IV PUSH 2 mg Q4H PRN Administration Pain Rated 7-10 Sevelamer Carbonate 1 each 08/02/24 08:00 08/08/24 08:51 0.8gm Powder Packet FEED TUBE 09/01/24 07:59 1 each TIDWM URIAH Administration Ondansetron HCl 4 mg 07/30/24 10:37 Ondansetron Inj 4 Mg/2 Ml Vial IV PUSH Q6H PRN Nausea And Vomiting Radiology Results: ITS Impressions Abdomen X-Ray 07/30/24 07:14 IMPRESSION: 1. Nasogastric tube in stomach. 2. Persistent mild opacities at the right lung base which could represent atelec tasis or pneumonia and likely tiny bilateral pleural effusions. Chest/Abdomen/Pelvis CT 08/02/24 17:17 IMPRESSION: 1. Mild emphysema with small bilateral pleural effusions and region of consolidation at the lateral basilar right lower lobe which could represent atelectasis or pneumonia. 2. Cardiomegaly with prominent left ventricular enlargement. 3. Multinodular goiter. Consider thyroid ultrasound for risk stratification. 4. Lan catheter in the bladder with wall thickening and slight haziness to the surrounding fat suggestive of cystitis either acute or chronic. Correlate with urinalysis. 5. Cholelithiasis. 6. Large right hydrocele. 7. Nonspecific mild diffuse edema of the intra-abdominal/pelvic and body wall fat. Chest X-Ray 08/05/24 11:07 IMPRESSION: Mild infiltrate or atelectasis at the lung bases, stable or mildly improved since 08/03/2024 Venous Doppler Study 08/05/24 12:50 IMPRESSION: Right cephalic vein thrombosis Thrombus within left subclavian vein Abdomen Ultrasound 08/06/24 14:21 IMPRESSION: Gallbladder sludge/stones with gallbladder wall thickening. Small right pleural effusion. Small volume ascites. Labs Labs: Laboratory Results - last 24 hr 08/05/24 08/07/24 08/07/24 20:14 17:29 21:26 Haptoglobin 240 H POC Capillary Glucose 216 H 212 H 08/07/24 08/08/24 08/08/24 23:59 05:24 11:37 Haptoglobin POC Capillary Glucose 210 H 226 H 212 H Pulse Oximetry SpO2 results: 96-100% on room air Attestation: I personally reviewed and interpreted this pulse oximetry as follows: Interpretation: no need for supplemental oxygen at this time Quality VTE Prophylaxis VTE prophylaxis: mechanical ordered and pharmacologic ordered Hospitalist MIPS Advance Care Plan I have confirmed that the patient's Advanced Care Plan is present, code status is documented, or surrogate decision maker is listed in patient medical record.: Yes Medication Reconciliation I have utilized all available resources to obtain, update and review the patients current medications (includes all prescriptions, OTC, herbals, cannabis, and nutritional supplements).: Yes
[2024-08-08] MEDS: COLLAGENASE OINT 30 GM TUBE 1 APPLIC TOPICAL (12:26)
[2024-08-08 16:00] VITALS: BP 139/59; PULSE 57; RESP 20; TEMP 36.8; O2SAT 100
[2024-08-08 17:44] LABS: Glucose Point of Care 252 mg/dl (65-105)
[2024-08-08 20:00] VITALS: BP 139/52; PULSE 61; RESP 20; TEMP 36.9; O2SAT 100
[2024-08-08 20:23] LABS: Glucose Point of Care 217 mg/dl (65-105)
[2024-08-08] MEDS: INSULIN GLARGINE (*BKC) 100 UNITS/ML 6 UNITS SUB-Q (20:53)
[2024-08-09] VITALS: BP 130/51; PULSE 60; RESP 22; TEMP 36.7; O2SAT 100
[2024-08-09 00:15] LABS: Glucose Point of Care 225 mg/dl (65-105)
[2024-08-09] MEDS: INSULIN ASPART (*BKC) 100 UNITS/ML SUB-Q ×3 (00:27→12:24)
[2024-08-09 04:00] VITALS: BP 148/63; PULSE 53; RESP 20; TEMP 36.4; O2SAT 100
[2024-08-09] MEDS: hydrALAZINE HCL 50 MG TABLET 100 MG FEED TUBE ×3 (05:52→21:10)
[2024-08-09 05:59] LABS: Glucose Point of Care 206 mg/dl (65-105)
[2024-08-09 08:00] VITALS: BP 139/54; PULSE 58; RESP 18; TEMP 37.3; O2SAT 100
[2024-08-09] MEDS: MEROPENEM 500 MG/NS 100 ML 500 MG/100 ML BAG 200 MG IVPB (08:32)
[2024-08-09] MEDS: ENOXAPARIN 80 MG/0.8 ML SYRINGE 70 MG SUB-Q (08:32)
[2024-08-09] MEDS: guaiFENesin 12 HR 600 MG TABCR PO ×2 (08:33→21:11)
[2024-08-09] MEDS: HYDROcodone/acetaminophen (*CRX) 5-325 MG TABLET 1 TAB FEED TUBE (08:33)
[2024-08-09] MEDS: amLODIPine BESYLATE 5 MG TABLET FEED TUBE (08:34)
[2024-08-09] MEDS: ATORVASTATIN 20 MG TABLET FEED TUBE (08:34)
[2024-08-09] MEDS: SEVELAMER CARBONATE 0.8 GM 1 EACH FEED TUBE ×3 (08:34→17:34)
[2024-08-09] MEDS: CALCIUM ACETATE 667 MG TABLET FEED TUBE ×3 (08:34→17:34)
[2024-08-09] MEDS: COLLAGENASE OINT 30 GM TUBE 1 APPLIC TOPICAL (08:35)
[2024-08-09 12:00] VITALS: BP 136/82; PULSE 66; RESP 16; TEMP 37.2; O2SAT 99
--- NOTE | 2024-08-09 12:09 | P.PNIM_ITS ---
Progress Note: A&P Assessment and Plan (1) PEG tube malfunction: Code(s): K94.23 - Gastrostomy malfunction Status: Acute Assessment and Plan: * HX of aspiration * recent placement of peg tube * Dislodged per KUB * GI consulted * Monitor electrolytes replenish as needed and adjust flushes as needed for any hypernatremia * Peg tube placement 08/01 * NA slowly improving with increased free water flush * Increased FWF to 200 ml on 08/03 * Reglan added to help with GI motility, and decrease risk of aspiration, tube feed goal 50 mils per hour for adequate nutrition 08/08: Tube feeds at goal, FWF continue, patient is third spacing fluid due to renal failure (2) Renal failure (ARF), acute on chronic: Code(s): N17.9 - Acute kidney failure, unspecified; N18.9 - Chronic kidney disease, unspecified Status: Acute Assessment and Plan: nephrology on board * Acute on Chronic ESRD * Patient is not a candidate for hemodialysis--from Dr Weiner's note on 07/19/24 considering his mental status and considerable morbidity related to starting dialysis especially with the high risk of placing a catheter in general, it would seem that the risks HD catheter placement as well as dialysis far exceeds the benefit, . * Patient's facility is working to on obtaining guardianship and then patient will be made DNR. * Renvela was stopped for some reason, maybe due to displaced g-tube. Continue phosphorus binder now. * Monitor antihypertensive drug therapy. * Avoid NSAIDs/nephrotoxins, follow creatinine/BUN, electrolytes. Renally dose meds Dr Weiner's note from today 08/07/2024 * placement of tunneled HD catheter placement not done previously as he is at high risk for complications * I reiterate what I said on his last hospitalization: * considering his mental status and considerable morbidity related to starting dialysis especially with the high risk of placing a catheter in general, it would seem that the risks HD catheter placement as well as dialysis far exceeds the benefit. I would support the patient transitioning to comfort measures or at least not escalating further therapy... 08/08/24: Daily labs forgone due to no access to draw from, agree with medically futile to continue care escalation (3) Insulin dependent diabetes mellitus: Status: Chronic Assessment and Plan: * Accu-Cheks A6HR on tube feeds, SSI * Increase Lantus 10 units hs * Watch for hypoglycemia/hypoglycemic protocol ordered * Blood sugars relatively controlled on current regimen (4) Pneumonia: Code(s): J18.9 - Pneumonia, unspecified organism Status: Acute Assessment and Plan: Chest x-ray 08/04 showed bibasilar lower lobe small pleural effusions. WBC has been trending down since admission. Afebrile and on RA --Repeat chest x-ray today. --Consider repeat CT chest if not improving. Would avoid IV contrast under almost all circumstances since very likely to worsen renal failure and no options for dialysis --On Ceftriaxone --WBC increased to 18.8 with elevation in procalcitonin of 3.8 and elevated CRP --Blood cultures 08/02 NGTD * Broadened to Meropenem to cover for ESBL as urine is cloudy, hull-yellow with sediment present. Added atypical PNA coverage with azithromycin for 5 days. 08/02-08/06 * CT chest shows area of consolidation to lateral, basilar right lower lobe with small bilateral pleural effusions * He sounds more congested today. Will start CPT vest therapy, add Mucinex. * completed IV antibiotics, will complete p.o. antibiotics today 08/07: WBC: 8.4. 08/08: Meropenem continues for UTI/cholecystis through 08/10 (5) Hypertension: Code(s): I10 - Essential (primary) hypertension Status: Chronic Assessment and Plan: improved * patient hypertensive admission * had missed his blood pressure medication * resume hydralazine t.i.d. through tube * added p.r.n. hydralazine for systolic over 180 * Patient still hypertensive systolic's 170's * increased his hydralazine to 100 TID * Added low dose amlodipine 5 mg daily. Patient was on this last admission but medication was stopped due to low blood pressure. * Blood pressure marginally better 08/08: Blood pressure stable, continue current management 08/09: Blood pressure 136/82 (6) Dementia: Code(s): F03.90 - Unspecified dementia, unspecified severity, without behavioral disturbance, psychotic disturbance, mood disturbance, and anxiety Status: Acute Assessment and Plan: 08/08/24: Severe dementia, non-verbal on assessment, PEG tube in place, bilateral UE DVTs. Care escalation appears to be medically futile (7) Hypernatremia: Code(s): E87.0 - Hyperosmolality and hypernatremia Status: Acute Assessment and Plan: improved * NA 140 07/21/24 up to 152 on admission 07/28 and has been slowly trending down with fluids 152<155>150 but now holding fluids for possible fluid overload * daily bmp * Consult renal okay to stop D5W, continue with free water flushes at 200 every 4 hours 08/08: On 08/07 Na was 144, daily labs held at this time due to no access to draw from (8) Acute UTI: Code(s): N39.0 - Urinary tract infection, site not specified Status: Acute Assessment and Plan: 08/08: Meropenem continues for UTI/cholecystis through 08/10 (9) DVT (deep venous thrombosis): Code(s): I82.409 - Acute embolism and thrombosis of unspecified deep veins of unspecified lower extremity Status: Acute Assessment and Plan: left subclavian vein (which is a deep vein) and thrombosis of the right cephalic vein heparin drip per protocol stopped Due to loss of IV access therapeutic Lovenox (10) Elevated LFTs: Code(s): R79.89 - Other specified abnormal findings of blood chemistry Status: Acute Assessment and Plan: 08/08: Downtrended labs, further labs deferred at this time. Plan Ethics consult requested due to apparent medical futility. Patient has renal failure and unable to place dialysis access. Patient not surgical candidate for acute cholecystitis or ERCP. Ethics committee reviewed patient case today (08/09) and concensus was due to patients quality of life decline that patient would be changed to a DNR code status and comfort measures provided. Subjective Date/time seen: 08/09/24 12:09 Interval history: Interval history: 73-year-old male with past medical history significant for dementia, patient is oriented times once at times, end-stage renal disease not on dialysis, Comes to the emergency room after his PEG tube was dislodged s/p replaced. Abdominal ultrasound for elevated LFT show Gallbladder sludge/stones with gallbladder wall thickening. Small right pleural effusion. Small volume ascites. Patient started Zosyn last night. Ethics, GI and surgery consulted today. Dr Bright for nephrology states considering his mental status and considerable morbidity related to starting dialysis especially with the high risk of placing a catheter in general, it would seem that the risks HD catheter placement as well as dialysis far exceeds the benefit. I would support the patient transitioning to comfort measures or at least not escalating further therapy... GI recommendation * continue monitoring LFTs and if they do not continued to trend down may consider more detailed imaging such as an MRCP Due to patient not being a surgical candidate MRCP is unnecessary diagnostic test as the patient is not a candidate for intervention ovaries. [employer] for Surgery Elevated LFTs with evidence of gallbladder wall thickening and sludge on ultrasound. WBC normal. Patient is a poor surgical candidate given his multiple comorbidities. Would recommend to continue conservative management with antibiotics and monitoring. Miladys from Ethics spoke with patient's licensed nursing assistant patient has a court date for 09/01/2024 For alf issue not having a POA and not being able to make his own decisions. Patient currently is a full code okay for CPR and intuba tion. Prior provider discussed over the phone with Dr. Bernal and Dr Solomon about patient's case being futile, both verbally in agreement over the phone that if IV access is lost, care should not be escalated to a central line i.e. femoral line as the patient does not qualify for a midline or a subclavian. Dr. Solomon signed off case on 08/08/24 due to not a surgical candidate. GI recommendation * continue monitoring LFTs and if they do not continued to trend down may consider more detailed imaging such as an MRCP Due to patient not being a surgical candidate MRCP is unnecessary diagnostic test as the patient is not a candidate for intervention ovaries. Nephrology documents that escalating patient care including dialysis is futile as patient is at severe risk related to catheter insertion and patient has bilateral upper extremity DVTs. Since neither GI nor Surgery documented agreement with medical futility, only verbalized such to prior provider, Ethics consult is not able to happen expeditiously. I agree that continuing to escalate care is medically futile at this point as patient is experiencing third spacing of fluid due to renal failure and patient not able to be dialyzed. Daily labs not ordered at this time. IV access lost on 08/08/24, attempting to place IV access in lower extremity which will increase risk of additional DVT. Ethics committee reviewed patient case today (08/09) and concensus was due to patients quality of life decline that patient would be changed to a DNR code status and comfort measures provided. Review of Systems Review of Systems: All systems reviewed & are unremarkable except as noted in HPI and below Exam Resp: Other: Lungs are coarse with lots of secretions. Cardio: Rate: regular rate Rhythm: regular rhythm GI: Other: Soft, round, non-tender, active bowel sounds, g-tube with abdominal binder in place Skin: Other: Warm, dry, intact. Left gluteus with pressure related ulcer with eschar wound bed. Neuro: Other: Alert and non-verbal, moves all extremities with generalized weakness. Extrem: Other: No cyanosis, dependent pitting edema to bilateral upper extremities, L>R, no clubbing. Pulses 2/2. Generalized edema noted throughout. Objective Data Vital Signs Vital Signs: Vital Signs - 24 hr 08/08/24 16:00 08/08/24 20:00 08/09/24 00:00 Temperature 98.3 F 98.4 F 98.1 F Pulse Rate 57 L 61 60 Respiratory Rate 20 20 22 H Blood Pressure 139/59 L 139/52 L 130/51 L Pulse Oximetry 100 100 100 Oxygen Delivery 08/09/24 04:00 08/09/24 08:00 08/09/24 09:00 Temperature 97.6 F 99.2 F Pulse Rate 53 L 58 L Respiratory Rate 20 18 Blood Pressure 148/63 H 139/54 L Pulse Oximetry 100 100 Oxygen Delivery Room Air Intake/Output Intake/Output: Intake & Output 08/06/24 08/07/24 08/08/24 08/09/24 23:59 23:59 23:59 23:59 Intake Total 246.9 100 100 Output Total 750 800 750 350 Balance -503.1 -700 -650 -350 Meds/Results Medications: Active Medications Generic Name Dose Route Start Last Admin Trade Name Freq PRN Reason Stop Dose Admin Acetaminophen 650 mg 07/30/24 10:37 Acetaminophen 650 Mg Suppository RECTAL Q6H PRN Mild Pain (1-3) or Fever Hydrocodone Bitart/Acetaminophen 1 tab 07/30/24 14:29 08/09/24 08:33 Hydrocodone/Acetaminophen (*Crx) 5-325 Mg Tablet FEED TUBE 1 tab Q6H PRN Administration Pain Rated 4-6 Amlodipine Besylate 5 mg 08/04/24 09:00 08/09/24 08:34 Amlodipine Besylate 5 Mg Tablet FEED TUBE 5 mg DAILY URIAH Administration Atorvastatin Calcium 20 mg 07/30/24 09:00 08/09/24 08:34 Atorvastatin 20 Mg Tablet FEED TUBE 20 mg DAILY URIAH Administration Calcium Acetate 667 mg 08/03/24 13:00 08/09/24 08:34 Calcium Acetate 667 Mg Tablet FEED TUBE 667 mg TID URIAH Administration Collagenase 1 applic 07/31/24 10:45 08/09/24 08:35 Collagenase Oint 30 Gm Tube TOPICAL 1 applic QAM URIAH Administration Dextrose 12.5 gm 07/29/24 11:33 Dextrose 50% 25 Gm/50 Ml Syringe IV PUSH PRN PRN Hypoglycemia Protocol Enoxaparin Sodium 70 mg 08/07/24 09:00 08/09/24 08:32 Enoxaparin 80 Mg/0.8 Ml Syringe SUB-Q 70 mg DAILY URIAH Administration Glucagon 1 mg 07/29/24 11:33 Glucagon For Inj 1 Mg Vial IM PRN PRN Hypoglycemia Protocol Glucose 15 gm 07/29/24 11:33 Glucose Oral Gel 15 Gm Of Glucse In 37.5 Gm Tube PO PRN PRN Hypoglycemia Protocol Guaifenesin 600 mg 08/03/24 21:00 08/09/24 08:33 Guaifenesin 12 Hr 600 Mg Tabcr PO 600 mg Q12HR URIAH Administration Hydralazine HCl 100 mg 08/01/24 14:00 08/09/24 05:52 Hydralazine Hcl 50 Mg Tablet FEED TUBE 100 mg Q8HR URIAH Administration Dextrose 1,000 mls @ 100 mls/hr 07/29/24 11:33 Dextrose 5% 1,000 Ml IVPB PRN PRN Hypoglycemia Protocol Meropenem 500 mg in 100 mls @ 200 mls/hr 08/07/24 10:30 08/09/24 08:32 IVPB 08/10/24 23:59 200 mls/hr DAILY URIAH Administration Insulin Aspart 2 - 5 units 07/29/24 12:00 08/09/24 05:53 Insulin Aspart (*Bkc) 100 Units/Ml SUB-Q 2 units Q6HR URIAH Administration Protocol Insulin Glargine 6 units 07/30/24 21:00 08/08/24 20:53 Insulin Glargine (*Bkc) 100 Units/Ml SUB-Q 6 units HS URIAH Administration Morphine Sulfate 2 mg 07/30/24 14:28 07/31/24 17:25 Morphine Sulfate (*Crx) 2 Mg/Ml Inj IV PUSH 2 mg Q4H PRN Administration Pain Rated 7-10 Sevelamer Carbonate 1 each 08/02/24 08:00 08/09/24 08:34 0.8gm Powder Packet FEED TUBE 09/01/24 07:59 1 each TIDWM URIAH Administration Ondansetron HCl 4 mg 07/30/24 10:37 Ondansetron Inj 4 Mg/2 Ml Vial IV PUSH Q6H PRN Nausea And Vomiting Radiology Results: ITS Impressions Abdomen X-Ray 07/30/24 07:14 IMPRESSION: 1. Nasogastric tube in stomach. 2. Persistent mild opacities at the right lung base which could represent atelectasis or pneumonia and likely tiny bilateral pleural effusions. Chest/Abdomen/Pelvis CT 08/02/24 17:17 IMPRESSION: 1. Mild emphysema with small bilateral pleural effusions and region of consolidation at the lateral basilar right lower lobe which could represent atelectasis or pneumonia. 2. Cardiomegaly with prominent left ventricular enlargement. 3. Multinodular goiter. Consider thyroid ultrasound for risk stratification. 4. Lan catheter in the bladder with wall thickening and slight haziness to the surrounding fat suggestive of cystitis either acute or chronic. Correlate with urinalysis. 5. Cholelithiasis. 6. Large right hydrocele. 7. Nonspecific mild diffuse edema of the intra-abdominal/pelvic and body wall fat. Chest X-Ray 08/05/24 11:07 IMPRESSION: Mild infiltrate or atelectasis at the lung bases, stable or mildly improved since 08/03/2024 Venous Doppler Study 08/05/24 12:50 IMPRESSION: Right cephalic vein thrombosis Thrombus within left subclavian vein Abdomen Ultrasound 08/06/24 14:21 IMPRESSION: Gallbladder sludge/stones with gallbladder wall thickening. Small right pleural effusion. Small volume ascites. Labs Labs: Laboratory Results - last 24 hr 08/08/24 08/08/24 08/09/24 17:42 19:46 00:11 POC Capillary Glucose 252 H 217 H 225 H 08/09/24 05:50 POC Capillary Glucose 206 H Quality VTE Prophylaxis VTE prophylaxis: pharmacologic ordered
[2024-08-09 12:23] LABS: Glucose Point of Care 206 mg/dl (65-105)
[2024-08-09 16:00] VITALS: BP 150/64; PULSE 65; RESP 16; TEMP 36.9; O2SAT 100
[2024-08-09 18:38] LABS: Glucose Point of Care 176 mg/dl (65-105)
[2024-08-09 20:00] VITALS: BP 162/69; PULSE 57; RESP 22; TEMP 36.9; O2SAT 100
[2024-08-09 20:47] LABS: Glucose Point of Care 170 mg/dl (65-105)
[2024-08-09] MEDS: INSULIN GLARGINE (*BKC) 100 UNITS/ML 10 UNITS SUB-Q (21:10)
[2024-08-10] VITALS: BP 134/62; PULSE 87; RESP 18; TEMP 36.6; O2SAT 100
[2024-08-10 00:47] LABS: Glucose Point of Care 169 mg/dl (65-105)
[2024-08-10 04:00] VITALS: BP 147/62; PULSE 62; RESP 20; TEMP 36.6; O2SAT 100
[2024-08-10 05:40] LABS: Glucose Point of Care 191 mg/dl (65-105)
[2024-08-10] MEDS: hydrALAZINE HCL 50 MG TABLET 100 MG FEED TUBE ×3 (05:47→21:29)
[2024-08-10 08:00] VITALS: BP 125/61; PULSE 70; RESP 20; TEMP 36.3; O2SAT 100
[2024-08-10] MEDS: guaiFENesin 12 HR 600 MG TABCR PO ×2 (08:54→21:29)
[2024-08-10] MEDS: CALCIUM ACETATE 667 MG TABLET FEED TUBE ×3 (08:54→17:04)
[2024-08-10] MEDS: ATORVASTATIN 20 MG TABLET FEED TUBE (08:54)
[2024-08-10] MEDS: amLODIPine BESYLATE 5 MG TABLET FEED TUBE (08:54)
[2024-08-10] MEDS: ENOXAPARIN 80 MG/0.8 ML SYRINGE 70 MG SUB-Q (08:54)
[2024-08-10] MEDS: SEVELAMER CARBONATE 0.8 GM 1 EACH FEED TUBE ×3 (08:56→17:04)
[2024-08-10] MEDS: COLLAGENASE OINT 30 GM TUBE 1 APPLIC TOPICAL (08:56)
[2024-08-10] MEDS: MEROPENEM 500 MG/NS 100 ML 500 MG/100 ML BAG 200 MG IVPB (08:58)
[2024-08-10 12:00] VITALS: BP 131/61; PULSE 57; RESP 20; TEMP 36.2; O2SAT 100
[2024-08-10 12:30] LABS: Glucose Point of Care 205 mg/dl (65-105)
[2024-08-10] MEDS: INSULIN ASPART (*BKC) 100 UNITS/ML SUB-Q ×2 (12:33→18:49)
--- NOTE | 2024-08-10 13:33 | P.PNIM_ITS ---
Progress Note: A&P Assessment and Plan (1) PEG tube malfunction: Code(s): K94.23 - Gastrostomy malfunction Status: Acute Assessment and Plan: * HX of aspiration * recent placement of peg tube * Dislodged per KUB * GI consulted * Monitor electrolytes replenish as needed and adjust flushes as needed for any hypernatremia * Peg tube placement 08/01 * NA slowly improving with increased free water flush * Increased FWF to 200 ml on 08/03 * Reglan added to help with GI motility, and decrease risk of aspiration, tube feed goal 50 mils per hour for adequate nutrition Continue current TF rate. (2) Renal failure (ARF), acute on chronic: Code(s): N17.9 - Acute kidney failure, unspecified; N18.9 - Chronic kidney disease, unspecified Status: Acute Assessment and Plan: nephrology on board * Acute on Chronic ESRD * Patient is not a candidate for hemodialysis--from Dr Weiner's note on 07/19/24 considering his mental status and considerable morbidity related to starting dialysis especially with the high risk of placing a catheter in general, it would seem that the risks HD catheter placement as well as dialysis far exceeds the benefit, . * Patient's facility is working to on obtaining guardianship and then patient will be made DNR. * Renvela was stopped for some reason, maybe due to displaced g-tube. Continue phosphorus binder now. * Monitor antihypertensive drug therapy. * Avoid NSAIDs/nephrotoxins, follow creatinine/BUN, electrolytes. Renally dose meds Dr Weiner's note from today 08/07/2024 * placement of tunneled HD catheter placement not done previously as he is at high risk for complications * I reiterate what I said on his last hospitalization: * considering his mental status and considerable morbidity related to starting dialysis especially with the high risk of placing a catheter in general, it would seem that the risks HD catheter placement as well as dialysis far exceeds the benefit. I would support the patient transitioning to comfort measures or at least not escalating further therapy... No daily labs due to no access to draw from. Agree with medically futile to continue care escalation (3) Insulin dependent diabetes mellitus: Status: Chronic Assessment and Plan: * Accu-Cheks A6HR on tube feeds, SSI * Increase Lantus 10 units hs * Watch for hypoglycemia/hypoglycemic protocol ordered * Blood sugars still elevated so will advance lantus (4) Pneumonia: Code(s): J18.9 - Pneumonia, unspecified organism Status: Acute Assessment and Plan: Chest x-ray 08/04 showed bibasilar lower lobe small pleural effusions. WBC has been trending down since admission. Afebrile and on RA --Repeat chest x-ray today. --Consider repeat CT chest if not improving. Would avoid IV contrast under almost all circumstances since very likely to worsen renal failure and no options for dialysis --On Ceftriaxone --WBC increased to 18.8 with elevation in procalcitonin of 3.8 and elevated CRP --Blood cultures 08/02 NGTD * Broadened to Meropenem to cover for ESBL as urine is cloudy, hull-yellow with sediment present. Added atypical PNA coverage with azithromycin for 5 days. 08/02-08/06 * CT chest shows area of consolidation to lateral, basilar right lower lobe with small bilateral pleural effusions * He sounds more congested today. Will start CPT vest therapy, add Mucinex. * completed IV antibiotics, will complete p.o. antibiotics today meropenem through today. (5) Hypertension: Code(s): I10 - Essential (primary) hypertension Status: Chronic Assessment and Plan: improved * patient hypertensive admission * had missed his blood pressure medication * resume hydralazine t.i.d. through tube * added p.r.n. hydralazine for systolic over 180 * Patient still hypertensive systolic's 170's * increased his hydralazine to 100 TID * Added low dose amlodipine 5 mg daily. Patient was on this last admission but medication was stopped due to low blood pressure. * Blood pressure marginally better Stable (6) Dementia: Code(s): F03.90 - Unspecified dementia, unspecified severity, without behavioral disturbance, psychotic disturbance, mood disturbance, and anxiety Status: Acute Assessment and Plan: Severe dementia, non-verbal on assessment, PEG tube in place, bilateral UE DVTs. Care escalation appears to be medically futile (7) Hypernatremia: Code(s): E87.0 - Hyperosmolality and hypernatremia Status: Acute Assessment and Plan: improved * NA 140 07/21/24 up to 152 on admission 07/28 and has been slowly trending down with fluids 152<155>150 but now holding fluids for possible fluid overload * daily bmp * Consult renal okay to stop D5W, continue with free water flushes at 200 every 4 hours On 08/07 Na was 144, daily labs held at this time due to no access to draw from (8) Acute UTI: Code(s): N39.0 - Urinary tract infection, site not specified Status: Acute Assessment and Plan: Meropenem continues for UTI/cholecystis through 08/10 (9) DVT (deep venous thrombosis): Code(s): I82.409 - Acute embolism and thrombosis of unspecified deep veins of unspecified lower extremity Status: Acute Assessment and Plan: left subclavian vein (which is a deep vein) and thrombosis of the right cephalic vein heparin drip per protocol stopped Due to loss of IV access Continue therapeutic Lovenox for now (10) Elevated LFTs: Code(s): R79.89 - Other specified abnormal findings of blood chemistry Status: Acute Assessment and Plan: Related to heptic congestion and renal failure. Downtrended labs, further labs deferred at this time. Subjective Date/time seen: 08/10/24 13:33 Interval history: 73yo male with dementia, ESRD, DM, AFib and HTN here for PEG tube being dislodged. Assuming care. Chart reviewed. Patient is essentially nonverbal so no hx able to be obtained. Review of Systems Review of Systems: ROS unobtainable: Yes unobtainable due to mental status Exam Narrative: AF 97.2 131/61 57 20 100% ra Gen - chronically ill appearing male in NARD Chest - lungs mildly coarse anteriorly. CV - RRR S1/S2, no rub Abd - soft, protuberant, +BS, Gtube site clean and dry. binder in place. Ext - diffuse pitting edema to bilateral upper extremities, L>R and less so in the lower extremities. Neuro: Alert and non-verbal, paucity of movements Skin: Warm, dry, intact. Objective Data Vital Signs Vital Signs: Vital Signs - 24 hr 08/09/24 16:00 08/09/24 20:00 08/09/24 20:56 Temperature 98.4 F 98.4 F Pulse Rate 65 57 L Respiratory Rate 16 22 H Blood Pressure 150/64 H 162/69 H Pulse Oximetry 100 100 Oxygen Delivery Room Air 08/10/24 00:00 08/10/24 04:00 08/10/24 08:00 Temperature 97.8 F 97.8 F 97.4 F L Pulse Rate 87 62 70 Respiratory Rate 18 20 20 Blood Pressure 134/62 147/62 H 125/61 Pulse Oximetry 100 100 100 Oxygen Delivery 08/10/24 08:00 08/10/24 12:00 Temperature 97.2 F L Pulse Rate 57 L Respiratory Rate 20 Blood Pressure 131/61 Pulse Oximetry 100 Oxygen Delivery Room Air Intake/Output Intake/Output: Intake & Output 08/07/24 08/08/24 08/09/24 08/10/24 23:59 23:59 23:59 23:59 Intake Total 100 767 193 1810 Output Total 800 750 350 950 Balance -700 -650 -250 1442 Meds/Results Medications: Active Medications Generic Name Dose Route Start Last Admin Trade Name Freq PRN Reason Stop Dose Admin Acetaminophen 650 mg 07/30/24 10:37 Acetaminophen 650 Mg Suppository RECTAL Q6H PRN Mild Pain (1-3) or Fever Hydrocodone Bitart/Acetaminophen 5 mg 08/09/24 14:48 Acetaminophen/Hydrocodone Elixir (*Crx) 7.5 Mg/15 Ml Udc FEED TUBE Q6H PRN Pain Rated 4-6 Amlodipine Besylate 5 mg 08/04/24 09:00 08/10/24 08:54 Amlodipine Besylate 5 Mg Tablet FEED TUBE 5 mg DAILY URIAH Administration Atorvastatin Calcium 20 mg 07/30/24 09:00 08/10/24 08:54 Atorvastatin 20 Mg Tablet FEED TUBE 20 mg DAILY URIAH Administration Calcium Acetate 667 mg 08/03/24 13:00 08/10/24 12:32 Calcium Acetate 667 Mg Tablet FEED TUBE 667 mg TID URIAH Administration Collagenase 1 applic 07/31/24 10:45 08/10/24 08:56 Collagenase Oint 30 Gm Tube TOPICAL 1 applic QAM URIAH Administration Dextrose 12.5 gm 07/29/24 11:33 Dextrose 50% 25 Gm/50 Ml Syringe IV PUSH PRN PRN Hypoglycemia Protocol Enoxaparin Sodium 70 mg 08/07/24 09:00 08/10/24 08:54 Enoxaparin 80 Mg/0.8 Ml Syringe SUB-Q 70 mg DAILY URIAH Administration Glucagon 1 mg 07/29/24 11:33 Glucagon For Inj 1 Mg Vial IM PRN PRN Hypoglycemia Protocol Glucose 15 gm 07/29/24 11:33 Glucose Oral Gel 15 Gm Of Glucse In 37.5 Gm Tube PO PRN PRN Hypoglycemia Protocol Guaifenesin 600 mg 08/03/24 21:00 08/10/24 08:54 Guaifenesin 12 Hr 600 Mg Tabcr PO 600 mg Q12HR URIAH Administration Hydralazine HCl 100 mg 08/01/24 14:00 08/10/24 05:47 Hydralazine Hcl 50 Mg Tablet FEED TUBE 100 mg Q8HR URIAH Administration Dextrose 1,000 mls @ 100 mls/hr 07/29/24 11:33 Dextrose 5% 1,000 Ml IVPB PRN PRN Hypoglycemia Protocol Meropenem 500 mg in 100 mls @ 200 mls/hr 08/07/24 10:30 08/10/24 09:28 IVPB 08/10/24 23:59 Infused DAILY URIAH Infusion Insulin Aspart 2 - 5 units 07/29/24 12:00 08/10/24 12:33 Insulin Aspart (*Bkc) 100 Units/Ml SUB-Q 2 units Q6HR URIAH Administration Protocol Insulin Glargine 10 units 08/09/24 21:00 08/09/24 21:10 Insulin Glargine (*Bkc) 100 Units/Ml SUB-Q 10 units HS URIAH Administration Morphine Sulfate 2 mg 08/09/24 14:36 Morphine Sulfate (*Crx) 2 Mg/Ml Inj IV PUSH Q4H PRN Pain Rated 7-10 Sevelamer Carbonate 1 each 08/02/24 08:00 08/10/24 12:31 0.8gm Powder Packet FEED TUBE 09/01/24 07:59 1 each TIDWM URIAH Administration Ondansetron HCl 4 mg 07/30/24 10:37 Ondansetron Inj 4 Mg/2 Ml Vial IV PUSH Q6H PRN Nausea And Vomiting Radiology Results: ITS Impressions Abdomen X-Ray 07/30/24 07:14 IMPRESSION: 1. Nasogastric tube in stomach. 2. Persistent mild opacities at the right lung base which could represent atelectasis or pneumonia and likely tiny bilateral pleural effusions. Chest/Abdomen/Pelvis CT 08/02/24 17:17 IMPRESSION: 1. Mild emphysema with small bilateral pleural effusions and region of consolidation at the lateral basilar right lower lobe which could represent atelectasis or pneumonia. 2. Cardiomegaly with prominent left ventricular enlargement. 3. Multinodular goiter. Consider thyroid ultrasound for risk stratification. 4. Lan catheter in the bladder with wall thickening and slight haziness to the surrounding fat suggestive of cystitis either acute or chronic. Correlate with urinalysis. 5. Cholelithiasis. 6. Large right hydrocele. 7. Nonspecific mild diffuse edema of the intra-abdominal/pelvic and body wall fat. Chest X-Ray 08/05/24 11:07 IMPRESSION: Mild infiltrate or atelectasis at the lung bases, stable or mildly improved since 08/03/2024 Venous Doppler Study 08/05/24 12:50 IMPRESSION: Right cephalic vein thrombosis Thrombus within left subclavian vein Abdomen Ultrasound 08/06/24 14:21 IMPRESSION: Gallbladder sludge/stones with gallbladder wall thickening. Small right pleural effusion. Small volume ascites. Labs Labs: Laboratory Results - last 24 hr 08/09/24 08/09/24 08/10/24 18:36 20:19 00:41 POC Capillary Glucose 176 H 170 H 169 H 08/10/24 08/10/24 05:31 12:02 POC Capillary Glucose 191 H 205 H
[2024-08-10 16:00] VITALS: BP 134/61; PULSE 51; RESP 20; TEMP 36.2; O2SAT 100
[2024-08-10 18:20] LABS: Glucose Point of Care 220 mg/dl (65-105)
[2024-08-10 20:40] VITALS: BP 169/68; PULSE 110; RESP 22; TEMP 36.8; O2SAT 100
[2024-08-10 21:30] LABS: Glucose Point of Care 215 mg/dl (65-105)
[2024-08-10] MEDS: INSULIN GLARGINE (*BKC) 100 UNITS/ML 12 UNITS SUB-Q (21:43)
[2024-08-11 00:11] VITALS: BP 135/68; PULSE 73; RESP 22; TEMP 36.2; O2SAT 95
[2024-08-11 04:49] VITALS: BP 125/58; PULSE 69; RESP 20; TEMP 36.4; O2SAT 97
[2024-08-11] MEDS: hydrALAZINE HCL 50 MG TABLET 100 MG FEED TUBE ×3 (05:31→21:07)
[2024-08-11] MEDS: INSULIN ASPART (*BKC) 100 UNITS/ML SUB-Q (05:32)
[2024-08-11 06:05] LABS: Glucose Point of Care 202 mg/dl (65-105)
[2024-08-11] MEDS: guaiFENesin 12 HR 600 MG TABCR PO (08:56)
[2024-08-11] MEDS: CALCIUM ACETATE 667 MG TABLET FEED TUBE ×3 (08:56→17:05)
[2024-08-11] MEDS: amLODIPine BESYLATE 5 MG TABLET FEED TUBE (08:56)
[2024-08-11] MEDS: COLLAGENASE OINT 30 GM TUBE 1 APPLIC TOPICAL (08:57)
[2024-08-11] MEDS: SEVELAMER CARBONATE 0.8 GM 1 EACH FEED TUBE ×3 (08:57→17:05)
[2024-08-11] MEDS: ENOXAPARIN 80 MG/0.8 ML SYRINGE 70 MG SUB-Q (08:57)
--- NOTE | 2024-08-11 11:15 | PM.IMPN ---
Progress Note: A&P Assessment and Plan (1) PEG tube malfunction: Code(s): K94.23 - Gastrostomy malfunction Status: Acute Assessment and Plan: Patient has a hx of aspiration s/p recent placement of peg tube. Patient brought in after found to have peg tube dislodged. GI consulted and Peg tube replaced 08/01 Tolerating TF. Binder in place. Continue TF and FWF. Dietary following Reglan added to help with GI motility, and decrease risk of aspiration (2) Renal failure (ARF), acute on chronic: Code(s): N17.9 - Acute kidney failure, unspecified; N18.9 - Chronic kidney disease, unspecified Status: Acute Assessment and Plan: Patient with CKD at ESRD and is dialysis appropriate but GenSurg felt patient was too high of risk for dialysis catheter placement and nephrology felt patient is not a candidate for hemodialysis. (Nephrology note on 07/19/24 considering his mental status and considerable morbidity related to starting dialysis especially with the high risk of placing a catheter in general, it would seem that the risks HD catheter placement as well as dialysis far exceeds the benefit, .) BUN 198 and Cr 8.7 at discharge 07/21 and were >240 and 9.6 on presentation here. Patient's facility is working to on obtaining guardianship and then patient will be made DNR. Continue phosphorus binder now. Not monitoring labs. Very edematous. Avoid NSAIDs/nephrotoxins. No daily labs due to no access to draw from. Agree with medically futile to continue care escalation Add comfort measures. Start Bumex to try to improve edema since still making urine . (3) Insulin dependent diabetes mellitus: Status: Chronic Assessment and Plan: The patient's blood glucose was reviewed on 08/11 Glucose remains poorly controlled. Continue AccuCheks covering with sliding scale. Hypoglycemia protocol available as needed. Advance Lantus. Continue to follow (4) Pneumonia: Code(s): J18.9 - Pneumonia, unspecified organism Status: Acute Assessment and Plan: CT chest shwong mild emphysema with small bilateral pleural effusions and consolidation at the lateral basilar right lower lobe. BCx grew staph epidermitis felt to be a contaminate. Was on Ceftriaxone but broadened to Meropenem to cover for ESBL EColi UTI. Added atypical PNA coverage with azithromycin for 5 days. WBC increased to 18.8 before normalizing. He has completed Meropenem and Azithromycin Comfort measures (5) Hypertension: Code(s): I10 - Essential (primary) hypertension Status: Chronic Assessment and Plan: Patient's blood pressure was reviewed on 08/11 Blood pressure remains well controlled. Will continue to monitor (6) Dementia: Code(s): F03.90 - Unspecified dementia, unspecified severity, without behavioral disturbance, psychotic disturbance, mood disturbance, and anxiety Status: Acute Assessment and Plan: Severe dementia, non-verbal on assessment, PEG tube in place Care escalation appears to be medically futile Guardianship is being arranged. (7) Hypernatremia: Code(s): E87.0 - Hyperosmolality and hypernatremia Status: Acute Assessment and Plan: Sodium 152 on admisison related to being off tube feeding and free water. Sodium improved once back on tube feeding and FWF. (8) Acute UTI: Code(s): N39.0 - Urinary tract infection, site not specified Status: Acute Assessment and Plan: UA is consistent with UTI. UCx collected. Rocephin started. UCx grew ESBL EColi. Changed to Meropenem and completed a course. (9) DVT (deep venous thrombosis): Code(s): I82.409 - Acute embolism and thrombosis of unspecified deep veins of unspecified lower extremity Status: Acute Assessment and Plan: Patient found to have left subclavian vein (which is a deep vein) and thrombosis of the right cephalic vein Heparin drip per protocol stopped due to loss of IV access and changed to therapeutic lovenox. Change to Eliquis. (10) Elevated LFTs: Code(s): R79.89 - Other specified abnormal findings of blood chemistry Status: Acute Assessment and Plan: Related to heptic congestion and renal failure. Downtrended labs, further labs deferred at this time. Subjective Date/time seen: 08/11/24 11:15 Interval history: 73yo male with dementia, ESRD, DM, AFib and HTN here for PEG tube being dislodged. Patient is awake but essentially nonverbal so no hx able to be obtained. Review of Systems Review of Systems: ROS unobtainable: Yes unobtainable due to mental status Exam Narrative: AF 97.5 125/58 69 20 97% ra Gen - chronically ill appearing male in NARD Chest - lungs mildly coarse anteriorly. CV - RRR S1/S2 Abd - soft, protuberant, +BS, Gtube site clean and dry. binder in place. Ext - diffuse pitting edema to bilateral upper extremities and less so in the lower extremities. Neuro: Alert and non-verbal, paucity of movements Skin: Warm, dry, intact. Objective Data Vital Signs Vital Signs: Vital Signs - 24 hr 08/10/24 12:00 08/10/24 16:00 08/10/24 20:40 Temperature 97.2 F L 97.2 F L 98.2 F Pulse Rate 57 L 51 L 110 H Respiratory Rate 20 20 22 H Blood Pressure 131/61 134/61 169/68 H Pulse Oximetry 100 100 100 Oxygen Delivery 08/10/24 20:00 08/11/24 00:11 08/11/24 04:49 Temperature 97.2 F L 97.5 F L Pulse Rate 73 69 Respiratory Rate 22 H 20 Blood Pressure 135/68 125/58 L Pulse Oximetry 95 97 Oxygen Delivery Room Air Intake/Output Intake/Output: Intake & Output 08/08/24 08/09/24 08/10/24 08/11/24 23:59 23:59 23:59 23:59 Intake Total 335 633 0752 Output Total 458 565 2346 935 Balance -650 -250 1042 -935 Meds/Results Medications: Active Medications Generic Name Dose Route Start Last Admin Trade Name Freq PRN Reason Stop Dose Admin Acetaminophen 650 mg 07/30/24 10:37 Acetaminophen 650 Mg Suppository RECTAL Q6H PRN Mild Pain (1-3) or Fever Hydrocodone Bitart/Acetaminophen 5 mg 08/09/24 14:48 Acetaminophen/Hydrocodone Elixir (*Crx) 7.5 Mg/15 Ml Udc FEED TUBE Q6H PRN Pain Rated 4-6 Amlodipine Besylate 5 mg 08/04/24 09:00 08/11/24 08:56 Amlodipine Besylate 5 Mg Tablet FEED TUBE 5 mg DAILY URIAH Administration Calcium Acetate 667 mg 08/03/24 13:00 08/11/24 08:56 Calcium Acetate 667 Mg Tablet FEED TUBE 667 mg TID URIAH Administration Collagenase 1 applic 07/31/24 10:45 08/11/24 08:57 Collagenase Oint 30 Gm Tube TOPICAL 1 applic QAM URIAH Administration Dextrose 12.5 gm 07/29/24 11:33 Dextrose 50% 25 Gm/50 Ml Syringe IV PUSH PRN PRN Hypoglycemia Protocol Enoxaparin Sodium 70 mg 08/07/24 09:00 08/11/24 08:57 Enoxaparin 80 Mg/0.8 Ml Syringe SUB-Q 70 mg DAILY URIAH Administration Glucagon 1 mg 07/29/24 11:33 Glucagon For Inj 1 Mg Vial IM PRN PRN Hypoglycemia Protocol Glucose 15 gm 07/29/24 11:33 Glucose Oral Gel 15 Gm Of Glucse In 37.5 Gm Tube PO PRN PRN Hypoglycemia Protocol Guaifenesin 600 mg 08/03/24 21:00 08/11/24 08:56 Guaifenesin 12 Hr 600 Mg Tabcr PO 600 mg Q12HR URIAH Administration Hydralazine HCl 100 mg 08/01/24 14:00 08/11/24 05:31 Hydralazine Hcl 50 Mg Tablet FEED TUBE 100 mg Q8HR URIAH Administration Dextrose 1,000 mls @ 100 mls/hr 07/29/24 11:33 Dextrose 5% 1,000 Ml IVPB PRN PRN Hypoglycemia Protocol Insulin Aspart 2 - 5 units 07/29/24 12:00 08/11/24 05:32 Insulin Aspart (*Bkc) 100 Units/Ml SUB-Q 2 units Q6HR URIAH Administration Protocol Insulin Glargine 12 units 08/10/24 21:00 08/10/24 21:43 Insulin Glargine (*Bkc) 100 Units/Ml SUB-Q 12 units HS URIAH Administration Morphine Sulfate 2 mg 08/09/24 14:36 Morphine Sulfate (*Crx) 2 Mg/Ml Inj IV PUSH Q4H PRN Pain Rated 7-10 Sevelamer Carbonate 1 each 08/02/24 08:00 08/11/24 08:57 0.8gm Powder Packet FEED TUBE 09/01/24 07:59 1 each TIDWM URIAH Administration Ondansetron HCl 4 mg 07/30/24 10:37 Ondansetron Inj 4 Mg/2 Ml Vial IV PUSH Q6H PRN Nausea And Vomiting Radiology Results: ITS Impressions Abdomen X-Ray 07/30/24 07:14 IMPRESSION: 1. Nasogastric tube in stomach. 2. Persistent mild opacities at the right lung base which could represent atelectasis or pneumonia and likely tiny bilateral pleural effusions. Chest/Abdomen/Pelvis CT 08/02/24 17:17 IMPRESSION: 1. Mild emphysema with small bilateral pleural effusions and region of consolidation at the lateral basilar right lower lobe which could represent atelectasis or pneumonia. 2. Cardiomegaly with prominent left ventricular enlargement. 3. Multinodular goiter. Consider thyroid ultrasound for risk stratification. 4. Lan catheter in the bladder with wall thickening and slight haziness to the surrounding fat suggestive of cystitis either acute or chronic. Correlate with urinalysis. 5. Cholelithiasis. 6. Large right hydrocele. 7. Nonspecific mild diffuse edema of the intra-abdominal/pelvic and body wall fat. Chest X-Ray 08/05/24 11:07 IMPRESSION: Mild infiltrate or atelectasis at the lung bases, stable or mildly improved since 08/03/2024 Venous Doppler Study 08/05/24 12:50 IMPRESSION: Right cephalic vein thrombosis Thrombus within left subclavian vein Abdomen Ultrasound 08/06/24 14:21 IMPRESSION: Gallbladder sludge/stones with gallbladder wall thickening. Small right pleural effusion. Small volume ascites. Labs Labs: Laboratory Results - last 24 hr 08/10/24 08/10/24 08/10/24 12:02 18:12 21:25 POC Capillary Glucose 205 H 220 H 215 H 08/11/24 04:56 POC Capillary Glucose 202 H
[2024-08-11 12:00] VITALS: BP 120/60; PULSE 78; RESP 20; TEMP 36.8; O2SAT 100
[2024-08-11 12:01] LABS: Glucose Point of Care 151 mg/dl (65-105)
[2024-08-11] MEDS: BUMETANIDE 1 MG TABLET 2 MG FEED TUBE (12:21)
--- NOTE | 2024-08-11 12:29 | PCNFU ---
Nutrition Follow-Up Complete: Inadequate energy intake related to NPO with no tube feeding running at this time as evidenced by diet orders, currently dislodged PEG Meet estimated needs - Goal is being met with tube feeding at goal rate Goal: Pt current nutrition is Nepro @ 50 ml/h. Flush 200 ml free water Q4 hours. 1980 kcal, 89 g protein, 800 ml free water. 2000 ml total water Nutrition recommendation: No new nutrition recommendations Last recorded weight is 71.4 kg. Bowel Motility: +1 BM 08/09/24 Labs Reviewed: No new labs Meds Noted: Heparin, protonix Skin: Unstageable to thigh; deep tissues pressure to ankle, toe Additional Notes: Pt is on comfort measures awaiting state guardianship so not addressing wounds with Shekhar. Meeting 100% estimated energy and protein needs with tube feedings. Monitor PEG placement, tube feed starts, tolerance, rate, wt, labs. Follow up every Wednesday and Wednesday.
[2024-08-11 16:00] VITALS: BP 124/68; PULSE 80; RESP 20; TEMP 36.9; O2SAT 100
[2024-08-11 18:20] LABS: Glucose Point of Care 197 mg/dl (65-105)
[2024-08-11 20:06] VITALS: BP 113/58; PULSE 60; RESP 18; TEMP 36.6; O2SAT 100
[2024-08-11] MEDS: ACETAMINOPHEN 325 MG TABLET 650 MG FEED TUBE (21:06)
[2024-08-11] MEDS: INSULIN GLARGINE (*BKC) 100 UNITS/ML 15 UNITS SUB-Q (21:07)
[2024-08-11 21:12] LABS: Glucose Point of Care 204 mg/dl (65-105)
[2024-08-12] VITALS: BP 142/65; PULSE 64; RESP 16; TEMP 36.4; O2SAT 98
[2024-08-12 05:32] VITALS: BP 134/59; PULSE 57; RESP 22; TEMP 36.8; O2SAT 96
[2024-08-12] MEDS: hydrALAZINE HCL 50 MG TABLET 100 MG FEED TUBE ×3 (05:32→20:43)
[2024-08-12 05:59] LABS: Glucose Point of Care 195 mg/dl (65-105)
[2024-08-12 08:00] VITALS: BP 117/47; PULSE 61; RESP 20; TEMP 37.2; O2SAT 100
[2024-08-12] MEDS: BUMETANIDE 1 MG TABLET 2 MG FEED TUBE (10:26)
[2024-08-12] MEDS: amLODIPine BESYLATE 5 MG TABLET FEED TUBE (10:26)
[2024-08-12] MEDS: SEVELAMER CARBONATE 0.8 GM 1 EACH FEED TUBE ×3 (10:26→17:48)
[2024-08-12] MEDS: APIXABAN 5 MG TABLET 10 MG FEED TUBE ×2 (10:26→20:43)
[2024-08-12] MEDS: CALCIUM ACETATE 667 MG TABLET FEED TUBE ×3 (10:26→17:48)
[2024-08-12] MEDS: COLLAGENASE OINT 30 GM TUBE 1 APPLIC TOPICAL (10:28)
[2024-08-12 11:33] LABS: Glucose Point of Care 201 mg/dl (65-105)
[2024-08-12 12:00] VITALS: BP 137/49; PULSE 57; RESP 20; TEMP 37.1; O2SAT 100
[2024-08-12] MEDS: INSULIN ASPART (*BKC) 100 UNITS/ML SUB-Q (14:21)
[2024-08-12 16:00] VITALS: BP 142/48; PULSE 62; RESP 20; TEMP 36.9; O2SAT 97
--- NOTE | 2024-08-12 17:24 | P.PNIM_ITS ---
Progress Note: A&P Assessment and Plan (1) PEG tube malfunction: Code(s): K94.23 - Gastrostomy malfunction Status: Acute Assessment and Plan: Patient has a hx of aspiration s/p recent placement of peg tube. Patient brought in after found to have peg tube dislodged. GI consulted and Peg tube replaced 08/01 Reglan was added to help with GI motility and decrease risk of aspiration but stopped on 08/06 Tolerating TF. Binder in place. Continue TF and FWF. Dietary following (2) Renal failure (ARF), acute on chronic: Code(s): N17.9 - Acute kidney failure, unspecified; N18.9 - Chronic kidney disease, unspecified Status: Acute Assessment and Plan: Patient with CKD at ESRD and is dialysis appropriate but GenSurg felt patient was too high of risk for dialysis catheter placement and nephrology felt patient is not a candidate for hemodialysis. (Nephrology note on 07/19/24 considering his mental status and considerable morbidity related to starting dialysis especially with the high risk of placing a catheter in general, it would seem that the risks HD catheter placement as well as dialysis far exceeds the benefit, .) BUN 198 and Cr 8.7 at discharge 07/21 and were >240 and 9.6 on presentation here. Patient's facility is working on obtaining guardianship Continue phosphorus binder now. Not monitoring labs. Very edematous. Avoid NSAIDs/nephrotoxins. No daily labs due to no access to draw from. Agree with medically futile to continue care escalation Comfort measures. LUE edema related in part to the DVT. Started Bumex to try to improve diffuse edema since still making urine but will stop since no difference in exam (3) Insulin dependent diabetes mellitus: Status: Chronic Assessment and Plan: The patient's blood glucose was reviewed on 08/12 Glucose remains mildly elevated 150-200 Continue AccuCheks covering with sliding scale. Hypoglycemia protocol available as needed. Continue to monitor (4) Pneumonia: Code(s): J18.9 - Pneumonia, unspecified organism Status: Acute Assessment and Plan: CT chest shwong mild emphysema with small bilateral pleural effusions and consolidation at the lateral basilar right lower lobe. BCx grew staph epidermitis felt to be a contaminate. Was on Ceftriaxone but broadened to Meropenem to cover for ESBL EColi UTI. Added atypical PNA coverage with azithromycin for 5 days. WBC increased to 18.8 before normalizing. He has completed Meropenem and Azithromycin Comfort measures (5) Hypertension: Code(s): I10 - Essential (primary) hypertension Status: Chronic Assessment and Plan: Patient's blood pressure was reviewed on 08/12 Blood pressure remains well controlled. Will continue to monitor (6) Dementia: Code(s): F03.90 - Unspecified dementia, unspecified severity, without behavioral di sturbance, psychotic disturbance, mood disturbance, and anxiety Status: Acute Assessment and Plan: Severe dementia, Non-verbal on assessment. PEG tube in place Care escalation appears to be medically futile. Ethics consult recommendations reviewed. Guardianship is being arranged. (7) Hypernatremia: Code(s): E87.0 - Hyperosmolality and hypernatremia Status: Acute Assessment and Plan: Sodium 152 on admisison related to being off tube feeding and free water. Sodium improved once back on tube feeding and FWF. (8) Acute UTI: Code(s): N39.0 - Urinary tract infection, site not specified Status: Acute Assessment and Plan: UA is consistent with UTI. UCx collected. Rocephin started. UCx grew ESBL EColi. Changed to Meropenem and completed a course. (9) DVT (deep venous thrombosis): Code(s): I82.409 - Acute embolism and thrombosis of unspecified deep veins of unspecified lower extremity Status: Acute Assessment and Plan: Patient found to have left subclavian vein (which is a deep vein) and thrombosis of the right cephalic vein Heparin drip per protocol stopped due to loss of IV access and changed to therapeutic lovenox. Now changed to Eliquis. This is probably some of the edema to the UE. (10) Elevated LFTs: Code(s): R79.89 - Other specified abnormal findings of blood chemistry Status: Acute Assessment and Plan: Related to heptic congestion and renal failure. Downtrended labs, further labs deferred at this time. Subjective Date/time seen: 08/12/24 17:24 Interval history: 73yo male with dementia, ESRD, DM, AFib and HTN here for PEG tube being dislodged. Patient is awake but essentially nonverbal so no hx able to be obtained. Tolerating TF. Review of Systems Review of Systems: ROS unobtainable: Yes unobtainable due to medical condition Exam Narrative: AF 98.7 137/49 57 20 100% ra Gen - chronically ill appearing male in NARD Chest - lungs clear anteriorly to quiet resp CV - RRR S1/S2 Abd - soft, ND, +BS, Gtube site clean and dry. binder in place. Ext - diffuse pitting edema to bilateral L>R upper extremities and less so in the lower extremities. Neuro: Alert and non-verbal, paucity of movements Skin: Warm, dry, intact. Objective Data Vital Signs Vital Signs: Vital Signs - 24 hr 08/11/24 20:06 08/11/24 20:00 08/12/24 00:00 Temperature 97.9 F 97.6 F Pulse Rate 60 64 Respiratory Rate 18 16 Blood Pressure 113/58 L 142/65 H Pulse Oximetry 100 98 Oxygen Delivery Room Air 08/12/24 05:32 08/12/24 08:00 08/12/24 07:45 Temperature 98.2 F 98.9 F Pulse Rate 57 L 61 Respiratory Rate 22 H 20 Blood Pressure 134/59 L 117/47 L Pulse Oximetry 96 100 Oxygen Delivery Room Air 08/12/24 12:00 Temperature 98.7 F Pulse Rate 57 L Respiratory Rate 20 Blood Pressure 137/49 L Pulse Oximetry 100 Oxygen Delivery Intake/Output Intake/Output: Intake & Output 08/09/24 08/10/24 08/11/24 08/12/24 23:59 23:59 23:59 23:59 Intake Total 100 2392 Output Total 350 1350 1385 375 Balance -250 1042 -1385 -375 Meds/Results Medications: Active Medications Generic Name Dose Route Start Last Admin Trade Name Freq PRN Reason Stop Dose Admin Acetaminophen 650 mg 07/30/24 10:37 Acetaminophen 650 Mg Suppository RECTAL Q6H PRN Mild Pain (1-3) or Fever Acetaminophen 650 mg 08/11/24 11:53 08/11/24 21:06 Acetaminophen 325 Mg Tablet FEED TUBE 650 mg Q6H PRN Administration Mild Pain (1-3) or Fever Hydrocodone Bitart/Acetaminophen 5 mg 08/09/24 14:48 Acetaminophen/Hydrocodone Elixir (*Crx) 7.5 Mg/15 Ml Udc FEED TUBE Q6H PRN Pain Rated 4-6 Amlodipine Besylate 5 mg 08/04/24 09:00 08/12/24 10:26 Amlodipine Besylate 5 Mg Tablet FEED TUBE 5 mg DAILY URIAH Administration Apixaban 10 mg 08/12/24 09:00 08/12/24 10:26 Apixaban 5 Mg Tablet FEED TUBE 08/19/24 08:59 10 mg Q12HR URIAH Administration Bumetanide 2 mg 08/11/24 11:55 08/12/24 10:26 Bumetanide 1 Mg Tablet FEED TUBE 2 mg DAILY URIAH Administration Calcium Acetate 667 mg 08/03/24 13:00 08/12/24 14:20 Calcium Acetate 667 Mg Tablet FEED TUBE 667 mg TID URIAH Administration Collagenase 1 applic 07/31/24 10:45 08/12/24 10:28 Collagenase Oint 30 Gm Tube TOPICAL 1 applic QAM URIAH Administration Dextrose 12.5 gm 07/29/24 11:33 Dextrose 50% 25 Gm/50 Ml Syringe IV PUSH PRN PRN Hypoglycemia Protocol Glucagon 1 mg 07/29/24 11:33 Glucagon For Inj 1 Mg Vial IM PRN PRN Hypoglycemia Protocol Glucose 15 gm 07/29/24 11:33 Glucose Oral Gel 15 Gm Of Glucse In 37.5 Gm Tube PO PRN PRN Hypoglycemia Protocol Guaifenesin 200 mg 08/11/24 11:54 Guaifenesin 200 Mg/10 Ml Udc FEED TUBE Q4H PRN Cough Hydralazine HCl 100 mg 08/01/24 14:00 08/12/24 14:20 Hydralazine Hcl 50 Mg Tablet FEED TUBE 100 mg Q8HR URIAH Administration Dextrose 1,000 mls @ 100 mls/hr 07/29/24 11:33 Dextrose 5% 1,000 Ml IVPB PRN PRN Hypoglycemia Protocol Insulin Aspart 2 - 5 units 07/29/24 12:00 08/12/24 14:21 Insulin Aspart (*Bkc) 100 Units/Ml SUB-Q 2 units Q6HR URIAH Administration Protocol Insulin Glargine 15 units 08/11/24 21:00 08/11/24 21:07 Insulin Glargine (*Bkc) 100 Units/Ml SUB-Q 15 units HS URIAH Administration Morphine Sulfate 2 mg 08/09/24 14:36 Morphine Sulfate (*Crx) 2 Mg/Ml Inj IV PUSH Q4H PRN Pain Rated 7-10 Sevelamer Carbonate 1 each 08/02/24 08:00 08/12/24 14:21 0.8gm Powder Packet FEED TUBE 09/01/24 07:59 1 each TIDWM URIAH Administration Ondansetron HCl 4 mg 07/30/24 10:37 Ondansetron Inj 4 Mg/2 Ml Vial IV PUSH Q6H PRN Nausea And Vomiting Radiology Results: ITS Impressions Abdomen X-Ray 07/30/24 07:14 IMPRESSION: 1. Nasogastric tube in stomach. 2. Persistent mild opacities at the right lung base which could represent atelectasis or pneumonia and likely tiny bilateral pleural effusions. Chest/Abdomen/Pelvis CT 08/02/24 17:17 IMPRESSION: 1. Mild emphysema with small bilateral pleural effusions and region of consolidation at the lateral basilar right lower lobe which could represent atelectasis or pneumonia. 2. Cardiomegaly with prominent left ventricular enlargement. 3. Multinodular goiter. Consider thyroid ultrasound for risk stratification. 4. Lan catheter in the bladder with wall thickening and slight haziness to the surrounding fat suggestive of cystitis either acute or chronic. Correlate with urinalysis. 5. Cholelithiasis. 6. Large right hydrocele. 7. Nonspecific mild diffuse edema of the intra-abdominal/pelvic and body wall fat. Chest X-Ray 08/05/24 11:07 IMPRESSION: Mild infiltrate or atelectasis at the lung bases, stable or mildly improved since 08/03/2024 Venous Doppler Study 08/05/24 12:50 IMPRESSION: Right cephalic vein thrombosis Thrombus within left subclavian vein Abdomen Ultrasound 08/06/24 14:21 IMPRESSION: Gallbladder sludge/stones with gallbladder wall thickening. Small right pleural effusion. Small volume ascites. Labs Labs: Laboratory Results - last 24 hr 08/11/24 08/11/24 08/12/24 18:11 21:05 05:37 POC Capillary Glucose 197 H 204 H 195 H 08/12/24 11:28 POC Capillary Glucose 201 H
[2024-08-12 18:44] LABS: Glucose Point of Care 176 mg/dl (65-105)
[2024-08-12 20:00] VITALS: BP 117/65; PULSE 54; RESP 16; TEMP 36.7; O2SAT 99
[2024-08-12] MEDS: INSULIN GLARGINE (*BKC) 100 UNITS/ML 15 UNITS SUB-Q (20:37)
[2024-08-12 21:06] LABS: Glucose Point of Care 176 mg/dl (65-105)
--- NOTE | 2024-08-12 23:20 | PC.NURSE ---
Pt at 2300. Verified by myself and an ICU nurse.
[2024-08-13 00:19] LABS: Glucose Point of Care 169 mg/dl (65-105)
--- NOTE | 2024-08-13 06:45 | P.DN_ITS ---
Discharge Summary Date and Time Date of : 08/12/24 Time of : 23:00 Provider Pronounced By: 2 RNs Name of First RN That Pronounced: Ambika Rao Name of Second RN That Pronounced: Manolo Ortiz Probable Cause of Probable Cause of : Renal failure Summary Hospital Course: Patient has a hx of aspiration s/p recent placement of peg tube. Patient brought in to the ED after found to have peg tube dislodged. GI consulted and Peg tube replaced. BCx grew staph epidermitis felt to be a contaminate. UA was consistent with UTI. UCx grew ESBL EColi. He was on Ceftriaxone but broadened to Meropenem and completed a course. Patient found to have left subclavian DVT that was treated. Patient with CKD at ESRD and is dialysis appropriate but GenSurg felt patient was too high of risk for dialysis catheter placement and nephrology felt patient is not a candidate for hemodialysis. (Nephrology note on 07/19/24 considering his mental status and considerable morbidity related to starting dialysis especially with the high risk of placing a catheter in general, it would seem that the risks HD catheter placement as well as dialysis far exceeds the benefit, .) BUN was >240 and Cr 9.6 on presentation here. Patient with sev ere dementia and is non-verbal on assessment. Care escalation felt to be medically futile. Ethics consult recommendations reviewed and agree with medically futile to continue care escalation. Care coordination was working on obtaining guardianship. Patient was made DNR. Patient passed on the evening on 08/12/24. Additional Data Confirmation of as documented by pronouncing clinician: Heart Tones and Breath Sounds Name of Provider Notified: Dr Rodriguze Time Provider Notified: 23:10 Provider Requests Autopsy: No Conservation Educator Notified: Yes Date [facility] Notified of : 08/12/24 Time [facility] Notified of : 23:25
--- NOTE | 2024-08-14 11:21 | PC.NURSE ---
Spoke with Family Leda Schulz [phone]. Family is deciding on FH in [facility]. Will call back with decision. Family calling [facility] to inquire about personal belongings and transport via mail or with pt/FH.
== END 2024-08-12 23:00 | disposition expired | DRG 393 ==
LOC: ANHED 07-29 00:11 → ANH3MEDSUR 07-29 00:28
PROVIDERS: Internal Medicine Gastroenterology; Nurse Practitioner Acute Care; Nurse Practitioner Family; Physician Assistant; Admitting Provider Internal Medicine; Emergency Provider Student in an Organized Health Care Education/Training Program; PCP Internal Medicine; Visit Provider Internal Medicine
PROC: 0DH63UZ Insertion of Feeding Device into Stomach, Percutaneous Approach (ICD-10-PCS; CPT 43246; principal; 2024-08-01 14:00)
DX: K94.23 Gastrostomy malfunction (principal); J15.29 Pneumonia due to other staphylococcus; N18.5 Chronic kidney disease, stage 5; I12.0 Hypertensive chronic kidney disease with stage 5 chronic kidney disease or end stage renal disease; N17.9 Acute kidney failure, unspecified; E87.0 Hyperosmolality and hypernatremia; N39.0 Urinary tract infection, site not specified; Z16.12 Extended spectrum beta lactamase (ESBL) resistance; I82.611 Acute embolism and thrombosis of superficial veins of right upper extremity; I82.B12 Acute embolism and thrombosis of left subclavian vein; K80.10 Calculus of gallbladder with chronic cholecystitis without obstruction; B96.20 Unspecified Escherichia coli [E. coli] as the cause of diseases classified elsewhere; D63.1 Anemia in chronic kidney disease; E11.22 Type 2 diabetes mellitus with diabetic chronic kidney disease; F03.90 Unspecified dementia, unspecified severity, without behavioral disturbance, psychotic disturbance, mood disturbance, and anxiety; I48.91 Unspecified atrial fibrillation; J43.9 Emphysema, unspecified; R79.89 Other specified abnormal findings of blood chemistry; Z74.01 Bed confinement status; Z79.4 Long term (current) use of insulin
CPT/HCPCS: 36415; 43246; 71045; 71250; 74176; 76705; 80053; 80074; 80143; 81001; 82274; 82550; 82728; 82948; 83010; 83540; 83550; 83615; 83735; 83880; 84100; 84145; 85014; 85018; 85025; 85027; 85046; 85055; 85610; 85730; 86140; 86850; 86900; 86901; 86923; 87040; 87077; 87086; 87088; 87181; 87186; 93306; 93970; 94640; 94667; 96361; 96374; 96375; 99285; A9270; G0378; J0360; J0696; J1644; J1650; J1815; J2003; J2060; J2185; J2270; J2470; J2543; J2704; J2765; J7070; J7120